=== PATIENT | male | born 1955 | race Caucasian/White ===

== ENCOUNTER 2017-12-29 12:57 | Observation (INO) | payer OTHER, SELFPAY ==
[2017-12-29] VITALS (9 sets, daily range): BP systolic 122–163; BP diastolic 82–104; PULSE 70–114; RESP 14–20; TEMP 36.3–36.8; O2SAT 92–98; BMI 31.5; BMI 31.2
--- NOTE | 2017-12-29 13:19 | EKG12_ITS ---
Test Reason : GI BLEED Blood Pressure : / mmHG Vent. Rate : 092 BPM Atrial Rate : 092 BPM P-R Int : 196 ms QRS Dur : 082 ms QT Int : 346 ms P-R-T Axes : 055 -04 037 degrees QTc Int : 427 ms Normal sinus rhythm Normal ECG Confirmed by JUVE BEATTY, NAVEEN ([id number]), editor dictionary CHRISTINA HERRERA ([id number]) on 01/01/2018 3:48:36 PM Referred By: ÓSCAR Confirmed By:NAVEEN AN MD
[2017-12-29] MEDS: 0.9% Normal Saline 1,000 ML 1000 ML IV (13:43)
[2017-12-29 13:46] LABS: Absolute Lymphocyte Count 1.46 X10^3/ul (0.83-4.51); Absolute Neutrophil Count 4.2 X10^3/uL (2.0-7.7); Basophil# 0.01 X10^3/uL; Basophil% 0.2 % (0-1); Eosinophil# 0.02 X10^3/uL; Eosinophils% 0.3 % (0-5); Hematocrit 44.3 % (40-54); Hemoglobin 14.8 g/dl (13.0-16.5); Lymphocyte # 1.46 X10^3/ul (4.0); Lymphocyte % 23.5 % (19-41); Mean Corp Hgb Conc 33.4 g/gl (32-36); Mean Corpuscular Hgb 29.2 pg (27.0-32.0); Mean Corpuscular Volume 87.4 fL (80-94); Mean Platelet Vol. 9.7 fl (6.2-12.0); Monocyte% 8.1 % (0-10); Neutrophil # 4.19 X10^3/uL (2.7-7.7); Neutrophil % 67.6 % (47-70); Platelet Count 224 K/mm3 (150-450); Prothrombin Time (Protime)PT. 13.3 SECONDS (11.7-14.9); RBC Distribution Width CV 13.5 % (11.6-14.6); RBC Distribution Width SD 43.1 fl (35.1-43.9); Red Blood Count 5.07 M/mm3 (4.6-6.2); White Blood Count 6.2 K/mm3 (4.4-11.0)
[2017-12-29 13:47] LABS: POSITIVE COUNT NO; POSITIVE DIFFERENTIAL NO; POSITIVE MORPHOLOGY NO
[2017-12-29 13:54] LABS: ALB/GLOB Ratio 1.3 RATIO (0.9-2.4); AST(SGOT) 23 U/L (15-37); Alanine Aminotransfer ALT/SGPT 40 U/L (16-61); Albumin, Serum 4.3 g/dL (3.2-5.0); Alkaline Phosphatase 43 U/L (45-117); Anion Gap 7 (5-15); BUN 11 mg/dL (7-18); BUN/Creat Ratio 11.3 RATIO (10-20); Chloride 104 mmol/L (98-107); Creatinine, Serum 0.97 mg/dL (0.70-1.30); EST Glomerular Filtration Rate 83 mL/min (>60); Est Glom Filt Rate - Afr Amer 101 mL/min (>60); Estimated Creatinine Clearance 100.79 ml/min; Globulin 3.2 g/dL (2.2-4.2); Glucose 104 mg/dL (74-106); Potassium 3.5 mmol/L (3.5-5.1); Protein, Total 7.5 g/dL (6.4-8.2); Sodium Level 138 mmol/L (136-145)
--- NOTE | 2017-12-29 13:59 | CT_ITS ---
STUDY: CT ABDOMEN AND PELVIS WITH CONTRAST REASON FOR EXAM: Male, 62 years old. RECTAL BLEEDING X MONTHS WITH WEAKNESS. RADIATION DOSAGE (If Supplied By Facility): CTDIvol = ( 15.41 ) mGy, DLP = ( 1386.69 ) mGycm TECHNIQUE: Transaxial images were obtained from the dome of the diaphragm to the symphysis pubis with oral contrast. 100 ml of Isovue 300 contrast was administered. Sagittal and coronal images were reconstructed. Individualized dose optimization techniques were used for this CT. COMPARISON: September 11, 2016 CT abdomen pelvis, June 19, 2017 CT abdomen FINDINGS: The lung bases demonstrate dependent atelectatic changes. The visualized portions of the heart are within normal limits. Normal liver. Normal gallbladder and extrahepatic biliary system. Normal spleen. Normal pancreas. Normal bilateral adrenal glands. There is a stable right renal cyst. 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 Normal visualized stomach. There are air-fluid levels in the small bowel without significant dilatation, suggesting an enteritis. . There are multiple colonic diverticula consistent with diverticulosis. The appendix is visualized and appears normal. Normal abdominal aorta. Normal inferior vena cava. 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 Normal urinary bladder. Again seen is a left inguinal fat-containing hernia. It no longer appears inflamed. There is a stable umbilical hernia. There are diffuse degenerative changes of the visualized lumbar spine. CT/Abdomen/Pelvis WITH Contrast IMPRESSION: There are air-fluid levels in the small bowel without significant dilatation, suggesting an enteritis. Other chronic findings. Electronically Signed: Rossy Dupree MD at 16:29 EDT , Service support ,
--- NOTE | 2017-12-29 14:25 | ED.DCSUM_ITS ---
- ER Visit Summary Date of Service: 12/29/17 Chief Complaint: Bright red blood per rectum History of Present Illness: The patient is a 62 M presenting with GI bleed. Patient states he had intermittent bright red blood per rectum for several months. He states typically the symptoms resolve on their own. He has a history of a colonoscopy [address] Blanco and was diagnosed with diverticuli and hemorrhoids. He states that he has intermittent rectal bleeding. He was concerned today due to generalized malaise, weakness, lightheadedness. He denies abdominal pain. He has mild nausea. Denies chest pain or shortness of breath. He has had chills with no fever. Physical Examination: Vitals are stable. Patient is afebrile. Alert no acute distress. HEENT exam is unremarkable. Neck is supple. Lungs are clear and equal bilaterally. Heart is regular rate and rhythm. Abdomen is soft nontender nondistended. No guarding or rebound. Rectal: External hemorrhoid nonbleeding, guaiac positive stool Extremities are unremarkable. Skin is warm and dry. Remainder of exam is unremarkable. Emergency Department Course and Treatment: EKG is sinus rate of 92 with no acute ischemic changes. CBC, chemistries unremarkable. INR is 1.0. Troponin is negative. Patient was given IV fluids. Urinalysis unremarkable. CT abdomen pelvis shows there are air-fluid levels in the small bowel without significant dilatation, suggesting an enteritis. Other chronic findings. Patient has a stable hemoglobin. He has an outpatient colonoscopy scheduled on with Dr. Blanco. Plan to observe for serial hemoglobin and discharge for outpatient colonoscopy should his hemoglobin remain stable. Discussed with the hospitalist. Disposition: Admission Impression: GI bleed, malaise, enteritis This note was generated with [employer] dictation software. It may contain incorrect words, spelling, and punctuation that were not noted in review of the chart prior to signing ED Disposition - Plan for ED Patient: Chief Complaint: GI Bleed Referrals: Shane Contreras MD [Primary Care Provider] -
[2017-12-29 15:10] LABS: Bacteria 0 SEEN /hpf (None Seen); Mucous, Urine 0 SEEN /hpf (<or=2+); White Blood Cells 0 SEEN /hpf (0-5)
[2017-12-29 15:17] LABS: Color, Urine Yellow (Yellow); Glucose, Dipstick Normal (Normal); Ketone-Dipstick Negative (Negative); Leukocyte Esterase-Dipstick Negative /ul (Negative); Nitrite-Dipstick Negative (Negative); Occult Blood-Urine Negative /ul (Negative); Protein-Dipstick Negative (Negative); Urine Bilirubin Dipstick Negative (Negative); Urine Clarity Clear (Clear); Urine Urobilinogen Normal (Normal); Urine pH 6.5 (5.0 - 8.0)
[2017-12-29 15:41] LABS: Red Blood Cells-Urine 0-5 SEEN /hpf (0-5); Squamous Epithelial Cells - UA 0-5 SEEN /hpf (0-5)
--- NOTE | 2017-12-29 17:31 | PCM.HP.STD ---
Problem List (1) GI bleed Status: Acute Qualifiers: GI bleed type/associated pathology: unspecified gastrointestinal hemorrhage type Qualified Code(s): K92.2 - Gastrointestinal hemorrhage, unspecified (2) Hemorrhoids Status: Chronic Qualifiers: Hemorrhoid type: unspecified Qualified Code(s): K64.9 - Unspecified hemorrhoids (3) Diverticulosis Status: Chronic Qualifiers: Diverticulosis site: unspecified location History of Present Illness Date of Admission: 12/29/17 Chief Complaint: Red bleeding per rectum for 3-4 days The patient is a 62 year old M with past medical history of diverticulosis and hemorrhoids, last had colonoscopy [address] Blanco. He has been having intermittent bright red bleeding per rectum and has been following up with Dr. Blanco. He has periodically been on a liquid diet which subsequently helps resolve the bleeding episodes. This is usually not associated with any other symptoms of dizziness or palpitations or fatigue or shortness of breath. However, in the last 3 or 4 days, he has been having bright red bleeding per rectum, which is associated with fatigue, analgesia and abdominal discomfort. The bleeding is painless. He has been on a liquid diet with nutritional supplements mainly because he has no appetite. No weight loss or fever or chills. No travel outside the [place], no new foods tried in a restaurant. No diarrhea. He got concerned today because he had an episode of bleeding and he felt very tired and nauseous but no vomiting. Vitals in the ER were temperature 97.3 F, heart rate of 104, blood pressure 157/99, respiratory rate was 16. Disc of the abdomen and pelvis showed air-fluid levels in the small bowel without significant dilatation suggestive of an enteritis Past Medical History Past Medical History (Chronic Problems): Chronic Problems Hemorrhoids (Chronic) Diverticulosis (Chronic) Allergies amoxicillin trihydrate [From Augmentin] Adverse Reaction (Verified 12/29/17 13:00) Rash potassium clavulanate [From Augmentin] Adverse Reaction (Verified 12/29/17 13:00) Rash Home Medications: Ambulatory Orders Medication Instructions Recorded Multivitamin [Multiple Vitamins] 1 each PO DAILY 12/29/17 Surgical History: - - Status post right and left inguinal hernia repair Psychiatric History: No pertinent psych hx Lives: Spouse/ Significant Other Smoking Status: Never smoker Alcohol: None Drugs: None - *Family History Maternal History Items: Cancer - Kidney cancer Paternal History Items: Cancer - colon cancer Review of Systems Constitutional: Reports: Anorexia, Weakness. Denies: Chills, Fever, Weight Change Eyes: Denies: Blurred vision, Cataracts, Conjunctivae Inflammation, Double vision, Pain, Redness HEENT: Denies: Difficulty Hearing, Difficulty Swallowing, Head Aches, Hearing Changes, Sinus Congestion, Sinus Drainage Cardiovascular: Denies: Chest Pain, Claudication, Chest Pressure, Orthopnea, Palpitations, Paroxysmal Noc. Dyspnea Respiratory: Denies: Cough, Hemoptysis, Shortness of Breath, Shortness of breath at rest, Shortness of breath upon exertion, Sputum production Gastrointestinal: Reports: Abdominal Pain, Hematochezia, Nausea. Denies: Constipation, Dyspepsia, Hematemesis, Melena, Vomiting Genitourinary: Denies: Dysuria, Frequency, Incontinence, Nocturia Musculoskeletal: Denies: Joint Pain, Joint stiffness, Joint swelling, Joint Tenderness Skin: Denies: Dryness, Pruritis, Rash, Wounds Neurological: Denies: Balance problems, Difficulty swallowing, Focal weakness, Incoordination, Numbness, Tingling Psychiatric: Denies: Anxiety, Depression, Homicidal Ideations, Suicidal Ideations Hematologic/ Lymphatic: Denies: Easy Bruising, Easy Bleeding VTE Information - Inpt Only VTE Present on Admission: No VTE Pharm Prophylaxis ordered?: Yes Patient Problems: Active and Suspected Problems GI bleed (Acute) - Physical Exam General: Alert, Oriented x3, Cooperative, No apparent distress, - - Not pale, not jaundice HEENT: Atraumatic, PERRLA, EOMI, Normocephalic Oral: Moist Mucosa Neck: Supple Lungs: Clear to auscultation, Normal air movement Cardiovascular: Regular rate, Regular Rhythm, Normal S1, Normal S2, No murmurs Abdomen: Bowel Sounds Present, Soft, Non Tender, Non-Distended, No Hepato-splenomegaly, Obese Extremities: No edema, Capillary Refill Less than 3 Seconds Skin: No rashes, No breakdown Musculoskeletal: No Tenderness to Palpation of Joints or Extremities Lymphatic: No Cervical, Supraclavicular, or Inguinal Adenopathy Neurological: Cranial nerves II-XII grossly intact, Neuro grossly intact Psych/Mental Status: Normal Affect, Appropriate Vital Signs Temp Pulse Resp BP Pulse Ox 97.3 F L 78 18 160/100 H 98 12/29/17 12:58 12/29/17 16:34 12/29/17 16:34 12/29/17 16:34 12/29/17 16:34 Assessment/Plan All Active Problems GI bleed (Acute) 62 year old M with past medical history of diverticulosis and hemorrhoids, last had colonoscopy [address] Blanco. He has been having intermittent bright red bleeding per rectum and has been following up with Dr. Blanco. 1. Acute GI bleed likely secondary to diverticular bleed versus hemorrhoids, history of above, stable every shift,, stable H&H. He has a planned colonoscopy on with Dr. Blanco. Dr. Gerber is aware of the patient and is ready to come in if patient has profuse bleeding and needs intervention. Plan: Admit to PCU, H&H every 6 hourly, orthostatic vitals every shift, labs in am 2. Hypertension, no history of hypertension, not on any medication for now, will monitor for now, if persistently elevated, will start patient on some blood pressure medication 3. DVT Prophylaxis with SCDs -chemo for prophylaxis not indicated on account of GI bleed 4. Disposition: Possible discharge in a.m. if patient improves, Hb remains stable and not orthostatic. Code Visit Inpatient E&M: 10182 Init Hosp L3
--- NOTE | 2017-12-29 17:41 | HP.PCM_ITS ---
Problem List (1) GI bleed Status: Acute Qualifiers: GI bleed type/associated pathology: unspecified gastrointestinal hemorrhage type Qualified Code(s): K92.2 - Gastrointestinal hemorrhage, unspecified (2) Hemorrhoids Status: Chronic Qualifiers: Hemorrhoid type: unspecified Qualified Code(s): K64.9 - Unspecified hemorrhoids (3) Diverticulosis Status: Chronic Qualifiers: Diverticulosis site: unspecified location History of Present Illness Date of Admission: 12/29/17 Chief Complaint: Red bleeding per rectum for 3-4 days The patient is a 62 year old M with past medical history of diverticulosis and hemorrhoids, last had colonoscopy [address] Blanco. He has been having intermittent bright red bleeding per rectum and has been following up with Dr. Blanco. He has periodically been on a liquid diet which subsequently helps resolve the bleeding episodes. This is usually not associated with any other symptoms of dizziness or palpitations or fatigue or shortness of breath. However, in the last 3 or 4 days, he has been having bright red bleeding per rectum, which is associated with fatigue, analgesia and abdominal discomfort. The bleeding is painless. He has been on a liquid diet with nutritional supplements mainly because he has no appetite. No weight loss or fever or chills. No travel outside the [place], no new foods tried in a restaurant. No diarrhea. He got concerned today because he had an episode of bleeding and he felt very tired and nauseous but no vomiting. Vitals in the ER were temperature 97.3 F, heart rate of 104, blood pressure 157/ 99, respiratory rate was 16. Disc of the abdomen and pelvis showed air-fluid levels in the small bowel without significant dilatation suggestive of an enteritis Past Medical History Past Medical History (Chronic Problems): Chronic Problems Hemorrhoids (Chronic) Diverticulosis (Chronic) Allergies amoxicillin trihydrate [From Augmentin] Adverse Reaction (Verified 12/29/17 13: 00) Rash potassium clavulanate [From Augmentin] Adverse Reaction (Verified 12/29/17 13:00 ) Rash Home Medications: Ambulatory Orders Medication Instructions Recorded Multivitamin [Multiple Vitamins] 1 each PO DAILY 12/29/17 Surgical History: - - Status post right and left inguinal hernia repair Psychiatric History: No pertinent psych hx Lives: Spouse/ Significant Other Smoking Status: Never smoker Alcohol: None Drugs: None - *Family History Maternal History Items: Cancer - Kidney cancer Paternal History Items: Cancer - colon cancer Review of Systems Constitutional: Reports: Anorexia, Weakness. Denies: Chills, Fever, Weight Change Eyes: Denies: Blurred vision, Cataracts, Conjunctivae Inflammation, Double vision, Pain, Redness HEENT: Denies: Difficulty Hearing, Difficulty Swallowing, Head Aches, Hearing Changes, Sinus Congestion, Sinus Drainage Cardiovascular: Denies: Chest Pain, Claudication, Chest Pressure, Orthopnea, Palpitations, Paroxysmal Noc. Dyspnea Respiratory: Denies: Cough, Hemoptysis, Shortness of Breath, Shortness of breath at rest, Shortness of breath upon exertion, Sputum production Gastrointestinal: Reports: Abdominal Pain, Hematochezia, Nausea. Denies: Constipation, Dyspepsia, Hematemesis, Melena, Vomiting Genitourinary: Denies: Dysuria, Frequency, Incontinence, Nocturia Musculoskeletal: Denies: Joint Pain, Joint stiffness, Joint swelling, Joint Tenderness Skin: Denies: Dryness, Pruritis, Rash, Wounds Neurological: Denies: Balance problems, Difficulty swallowing, Focal weakness, Incoordination, Numbness, Tingling Psychiatric: Denies: Anxiety, Depression, Homicidal Ideations, Suicidal Ideations Hematologic/ Lymphatic: Denies: Easy Bruising, Easy Bleeding VTE Information - Inpt Only VTE Present on Admission: No VTE Pharm Prophylaxis ordered?: Yes Patient Problems: Active and Suspected Problems GI bleed (Acute) - Physical Exam General: Alert, Oriented x3, Cooperative, No apparent distress, - - Not pale, not jaundice HEENT: Atraumatic, PERRLA, EOMI, Normocephalic Oral: Moist Mucosa Neck: Supple Lungs: Clear to auscultation, Normal air movement Cardiovascular: Regular rate, Regular Rhythm, Normal S1, Normal S2, No murmurs Abdomen: Bowel Sounds Present, Soft, Non Tender, Non-Distended, No Hepato- splenomegaly, Obese Extremities: No edema, Capillary Refill Less than 3 Seconds Skin: No rashes, No breakdown Musculoskeletal: No Tenderness to Palpation of Joints or Extremities Lymphatic: No Cervical, Supraclavicular, or Inguinal Adenopathy Neurological: Cranial nerves II-XII grossly intact, Neuro grossly intact Psych/Mental Status: Normal Affect, Appropriate Vital Signs Temp Pulse Resp BP Pulse Ox 97.3 F L 78 18 160/100 H 98 12/29/17 12:58 12/29/17 16:34 12/29/17 16:34 12/29/17 16:34 12/29/17 16:34 Assessment/Plan All Active Problems GI bleed (Acute) 62 year old M with past medical history of diverticulosis and hemorrhoids, last had colonoscopy [address] Blanco. He has been having intermittent bright red bleeding per rectum and has been following up with Dr. Blanco. 1. Acute GI bleed likely secondary to diverticular bleed versus hemorrhoids, history of above, stable every shift,, stable H&H. He has a planned colonoscopy on with Dr. Blanco. Dr. Gerber is aware of the patient and is ready to come in if patient has profuse bleeding and needs intervention. Plan: Admit to PCU, H&H every 6 hourly, orthostatic vitals every shift, labs in am 2. Hypertension, no history of hypertension, not on any medication for now, will monitor for now, if persistently elevated, will start patient on some blood pressure medication 3. DVT Prophylaxis with SCDs -chemo for prophylaxis not indicated on account of GI bleed 4. Disposition: Possible discharge in a.m. if patient improves, Hb remains stable and not orthostatic. Code Visit Inpatient E&M: 62250 Init Hosp L3
[2017-12-29 18:26] LABS: Hemoglobin 14.2 g/dl (13.0-16.5)
[2017-12-29] MEDS: Ciprofloxacin 200 MG/100 ML BAG 100 MG IV (21:19)
[2017-12-29 23:57] LABS: Hemoglobin 14.2 g/dl (13.0-16.5)
[2017-12-30 03:01] VITALS: PULSE 65
[2017-12-30 05:40] LABS: Hematocrit 41.6 % (40-54); Hemoglobin 13.9 g/dl (13.0-16.5); Mean Corp Hgb Conc 33.4 g/gl (32-36); Mean Corpuscular Hgb 29.9 pg (27.0-32.0); Mean Corpuscular Volume 89.5 fL (80-94); Mean Platelet Vol. 9.8 fl (6.2-12.0); Platelet Count 213 K/mm3 (150-450); RBC Distribution Width CV 13.8 % (11.6-14.6); RBC Distribution Width SD 44.8 fl (35.1-43.9); Red Blood Count 4.65 M/mm3 (4.6-6.2); White Blood Count 5.7 K/mm3 (4.4-11.0)
[2017-12-30 05:48] LABS: Anion Gap 8 (5-15); BUN 11 mg/dL (7-18); BUN/Creat Ratio 11.7 RATIO (10-20); Calcium,Total 8.7 mg/dL (8.5-10.1); Chloride 106 mmol/L (98-107); Creatinine, Serum 0.94 mg/dL (0.70-1.30); EST Glomerular Filtration Rate 86 mL/min (>60); Est Glom Filt Rate - Afr Amer 104 mL/min (>60); Glucose 110 mg/dL (74-106); Potassium 3.8 mmol/L (3.5-5.1); Sodium Level 143 mmol/L (136-145)
[2017-12-30 06:16] VITALS: BP 127/65; BP 128/90; BP 134/71; PULSE 65; PULSE 69; PULSE 75
[2017-12-30 06:25] LABS: Scan Indicated on CBC? Y/N NO
[2017-12-30 06:52] VITALS: BP 127/65; PULSE 65; RESP 16; TEMP 36.6; O2SAT 96
[2017-12-30 08:00] VITALS: PULSE 71
[2017-12-30 09:11] VITALS: BP 132/80; PULSE 68; RESP 16; TEMP 36.6; O2SAT 95
[2017-12-30] MEDS: Ciprofloxacin 200 MG/100 ML BAG 100 MG IV (09:20)
[2017-12-30] MEDS: Multivitamins,Therapeutic Tablet 1 TABLET PO (09:25)
--- NOTE | 2017-12-30 10:20 | PCM.DC ---
- Discharge Diagnoses Current Active Problems: Current Active and Chronic Problems GI bleed (Acute) Hemorrhoids (Chronic) Diverticulosis (Chronic) You will use the following diet at home:: Other - clear liquids, advance as tolerated to low residue for 2 weeks and then High fiber after that Your food should be the consistency of: Regular Your liquids should be the consistency of: Regular/Thin Discharge Activity: - - Take it easy this week. Think about taking a vacation! May resume sexual activity in: No Restrictions Call your doctor if you observe: Fever of 101 or Higher, Inability to have a bowel movement, Shortness of breath, Dizziness, - - nausea/vomiting, black tarry stools Instructions: Low-Residue Diet Additional Instructions: Call me if you start to have fevers or increased bloody BM's. My cell is [phone] and I am here all week. Nice to be able to put a name to a face and it was a pleasure to finally meet you. Pending Tests on Discharge: none Allergies/Adverse Reactions: Allergies amoxicillin trihydrate [From Augmentin] Adverse Reaction (Verified 12/29/17 13:00) Rash potassium clavulanate [From Augmentin] Adverse Reaction (Verified 12/29/17 13:00) Rash Medications to take at Discharge Multivitamin [Multiple Vitamins] 1 each PO DAILY 12/29/17 Hydrocortisone [Anusol Hc] 25 mg RECTAL BID #18 suppos. 12/30/17 The following prescriptions were given: Hydrocortisone [Anusol Hc] 25 mg RECTAL BID #18 suppos. Primary Care Physician: Shane Contreras MD [Primary Care Provider] - Please follow up with your Primary Care Physician in: as needed Please Follow Up With: Abdulkadir Blanco MD When: has appt for colonoscopy Proposed Discharge Date: 12/30/17
--- NOTE | 2017-12-30 10:27 | DCINST_ITS ---
- Discharge Diagnoses Current Active Problems: Current Active and Chronic Problems GI bleed (Acute) Hemorrhoids (Chronic) Diverticulosis (Chronic) You will use the following diet at home:: Other - clear liquids, advance as tolerated to low residue for 2 weeks and then High fiber after that Your food should be the consistency of: Regular Your liquids should be the consistency of: Regular/Thin Discharge Activity: - - Take it easy this week. Think about taking a vacation! May resume sexual activity in: No Restrictions Call your doctor if you observe: Fever of 101 or Higher, Inability to have a bowel movement, Shortness of breath, Dizziness, - - nausea/vomiting, black tarry stools Instructions: Low-Residue Diet Additional Instructions: Call me if you start to have fevers or increased bloody BM's. My cell is [phone] and I am here all week. Nice to be able to put a name to a face and it was a pleasure to finally meet you. Pending Tests on Discharge: none Allergies/Adverse Reactions: Allergies amoxicillin trihydrate [From Augmentin] Adverse Reaction (Verified 12/29/17 13: 00) Rash potassium clavulanate [From Augmentin] Adverse Reaction (Verified 12/29/17 13:00 ) Rash Medications to take at Discharge Multivitamin [Multiple Vitamins] 1 each PO DAILY 12/29/17 Hydrocortisone [Anusol Hc] 25 mg RECTAL BID #18 suppos. 12/30/17 The following prescriptions were given: Hydrocortisone [Anusol Hc] 25 mg RECTAL BID #18 suppos. Primary Care Physician: Shane Contreras MD [Primary Care Provider] - Please follow up with your Primary Care Physician in: as needed Please Follow Up With: Abdulkadir Blanco MD When: has appt for colonoscopy Proposed Discharge Date: 12/30/17
--- NOTE | 2017-12-30 10:27 | PCM.DC.SUM ---
Discharge Date and Diagnosis - Problem List Patient Problems: Active and Suspected Problems Lower GI bleeding (Acute) Date of Admission: 12/29/17 Date of Discharge: 12/30/17 - Primary Discharge Diagnosis Active and Suspected Problems Lower GI bleeding (Acute) - suspect due to hemorrhoidal disease or diverticular disease - Secondary Discharge Diagnosis Chronic Problems Hemorrhoids (Chronic) Diverticulosis (Chronic) Hospital Course and Treatment Imaging Results: Clinical Impression(s) from Imaging Studies Abdomen/Pelvis CT 12/29/17 13:59 IMPRESSION: There are air-fluid levels in the small bowel without significant dilatation, suggesting an enteritis. Other chronic findings. Electronically Signed: Rossy Dupree MD at 16:29 EDT , Service support , Laboratory Tests 12/29/17 12/29/17 12/29/17 13:24 13:24 13:24 WBC 6.2 RBC 5.07 Hgb 14.8 Hct 44.3 MCV 87.4 MCH 29.2 MCHC 33.4 RDW 13.5 RDW Differential 43.1 Plt Count 224 MPV 9.7 Immature Gran % (Auto) 0.300 Neut % (Auto) 67.6 Lymph % (Auto) 23.5 [place] % (Auto) 8.1 Eos % (Auto) 0.3 Baso % (Auto) 0.2 Absolute Neuts (auto) 4.2 Absolute Lymphs (auto) 1.46 Total Counted Not Reportable PT 13.3 INR 1.0 Sodium 138 Potassium 3.5 Chloride 104 Carbon Dioxide 27.0 Anion Gap 7 BUN 11 Creatinine 0.97 Estim Creat Clear Calc 100.79 Est GFR (MDRD) Af Amer 101 Est GFR (MDRD) Non-Af 83 BUN/Creatinine Ratio 11.3 Glucose 104 Calcium 9.0 Total Bilirubin 0.90 AST 23 ALT 40 Alkaline Phosphatase 43 L Troponin I < 0.015 Total Protein 7.5 Albumin 4.3 Globulin 3.2 Albumin/Globulin Ratio 1.3 Urine Color Urine Clarity Urine pH Ur Specific [place] Urine Protein Urine Glucose (UA) Urine Ketones Urine Occult Blood Urine Nitrite Urine Bilirubin Urine Urobilinogen Ur Leukocyte Esterase Urine RBC Urine WBC Ur Squamous Epith Cells Urine Bacteria Urine Mucus 06/17/18 06/17/18 06/17/18 14:45 18:00 23:30 WBC RBC Hgb 14.2 14.2 Hct 42.0 41.0 MCV MCH MCHC RDW RDW Differential Plt Count MPV Immature Gran % (Auto) Neut % (Auto) Lymph % (Auto) [place] % (Auto) Eos % (Auto) Baso % (Auto) Absolute Neuts (auto) Absolute Lymphs (auto) Total Counted PT INR Sodium Potassium Chloride Carbon Dioxide Anion Gap BUN Creatinine Estim Creat Clear Calc Est GFR (MDRD) Af Amer Est GFR (MDRD) Non-Af BUN/Creatinine Ratio Glucose Calcium Total Bilirubin AST ALT Alkaline Phosphatase Troponin I Total Protein Albumin Globulin Albumin/Globulin Ratio Urine Color Yellow Urine Clarity Clear Urine pH 6.5 Ur Specific [place] 1.010 Urine Protein Negative Urine Glucose (UA) Normal Urine Ketones Negative Urine Occult Blood Negative Urine Nitrite Negative Urine Bilirubin Negative Urine Urobilinogen Normal Ur Leukocyte Esterase Negative Urine RBC 0-5 SEEN Urine WBC 0 SEEN Ur Squamous Epith Cells 0-5 SEEN Urine Bacteria 0 SEEN Urine Mucus 0 SEEN 12/30/17 12/30/17 05:14 05:14 WBC 5.7 RBC 4.65 Hgb 13.9 Hct 41.6 MCV 89.5 MCH 29.9 MCHC 33.4 RDW 13.8 RDW Differential 44.8 H Plt Count 213 MPV 9.8 Immature Gran % (Auto) Neut % (Auto) Lymph % (Auto) [place] % (Auto) Eos % (Auto) Baso % (Auto) Absolute Neuts (auto) Absolute Lymphs (auto) Total Counted PT INR Sodium 143 Potassium 3.8 Chloride 106 Carbon Dioxide 29.0 Anion Gap 8 BUN 11 Creatinine 0.94 Estim Creat Clear Calc 104.00 Est GFR (MDRD) Af Amer 104 Est GFR (MDRD) Non-Af 86 BUN/Creatinine Ratio 11.7 Glucose 110 H Calcium 8.7 Total Bilirubin AST ALT Alkaline Phosphatase Troponin I Total Protein Albumin Globulin Albumin/Globulin Ratio Urine Color Urine Clarity Urine pH Ur Specific [place] Urine Protein Urine Glucose (UA) Urine Ketones Urine Occult Blood Urine Nitrite Urine Bilirubin Urine Urobilinogen Ur Leukocyte Esterase Urine RBC Urine WBC Ur Squamous Epith Cells Urine Bacteria Urine Mucus none Operations: None Procedures: None Summary of Care Provided: The patient is a 62 year old M with a past medical history of diverticulosis and hemorrhoidal disease who presented to the emergency room at [facility] on 12/29/2017 complaining of bright red rectal bleeding associated with fatigue decreased appetite. Vital signs at presentation to the emergency room were temperature 97.3, pulse rate 114, blood pressure 157/99, respiratory rate 16 and he was 92% saturated on room air. CBC was normal and BMP was also within normal limits. Troponin was less than 0.015 and the LFTs were unremarkable. CT scan of the abdomen and pelvis showed air-fluid levels in the small bowel without significant dilatation suggesting an enteritis. He was admitted to the hospital with a diagnosis of lower GI bleed likely secondary to hemorrhoidal disease or diverticular disease. Follow-up CBC the next morning was within normal limits. Enteric pathogen panel was negative. Vital signs were temp 97.9, pulse rate 68, blood pressure 132/80, respiratory rate 16 and he was 95-96% saturated on room air. He denies abdominal pain and also denies rectal pain with defecation. BM's recently have been semi-formed. He has had no nausea and no vomiting. He had no fevers in the hospital. He was discharged on 12/30 and has an appointment with Dr. Blanco this coming for colonoscopy. He was given a prescription for Anusol suppositories and instructed to use 1 twice daily for 4 days and then twice daily as needed bright red rectal bleeding or rectal pain. He will advance his diet as tolerated to low residue for 2 weeks and then convert to a high-fiber diet. My suspicion is that he has gastroenteritis. BP's early in the admission were increased, suggest close monitoring of BP as OP and consideration of a 24 hour ambulatory BP monitor. Discharge Activity: - - Take it easy this week. Think about taking a vacation! May resume sexual activity in: No Restrictions Call your doctor if you observe: Fever of 101 or Higher, Inability to have a bowel movement, Shortness of breath, Dizziness, - - nausea/vomiting, black tarry stools Home Medications: Medications to take at Discharge Multivitamin [Multiple Vitamins] 1 each PO DAILY 12/29/17 Hydrocortisone [Anusol Hc] 25 mg RECTAL BID #18 suppos. 12/30/17 Following Prescrptions Were Given to Patient: Hydrocortisone [Anusol Hc] 25 mg RECTAL BID #18 suppos. Primary Care Physician: Shane Contreras MD [Primary Care Provider] - Please follow up with your Primary Care Physician in: as needed Please Follow Up With: Abdulkadir Blanco MD When: has appt for colonoscopy Patient Instructions: Low-Residue Diet Disposition: Home Minutes spent on discharge:: 30 Patient Condition:: Good Medical Necessity - Tobacco Use Smoking Status: Never smoker Meaningful Use Info Meaningful Use Diagnoses (Choose all that apply): None applicable Code Visit OBSV E&M: 41305 Observation care discharge
== END 2017-12-30 10:26 | disposition home or self-care (01) ==
LOC: PCU 12-30 10:47 → ED 12-30 10:52
PROVIDERS: Admitting Provider Internal Medicine; Emergency Provider Emergency Medicine; Family Provider Family Medicine; PCP Family Medicine; Visit Provider Internal Medicine
DX: K92.2 Gastrointestinal hemorrhage, unspecified (principal); K57.90 Diverticulosis of intestine, part unspecified, without perforation or abscess without bleeding; K64.4 Residual hemorrhoidal skin tags; I10 Essential (primary) hypertension
CPT/HCPCS: 36415; 74177; 80048; 80053; 81001; 82274; 84484; 85014; 85018; 85025; 85027; 85610; 87506; 93005; 96360; 96361; 97802; 99218; 99284; J7030; J7040; Q9967; A4216; G0378; J0744

== ENCOUNTER → 2018-07-24 13:02 | Outpatient (CLI) | payer OTHER, SELFPAY ==
--- NOTE | 2018-07-24 13:05 | CT_ITS ---
STUDY: CT SOFT TISSUE NECK WITH CONTRAST REASON FOR EXAM: Male, 62 years old. Palpable abnormality along the right side of the neck. RADIATION DOSAGE (If Supplied By Facility): CTDIvol = ( 15.11 ) mGy, DLP = ( 473.61 ) mGycm TECHNIQUE: The patient was scanned in a multi-detector CT scanner. High resolution transaxial imaging was performed following intravenous administration of 75 ml of Isovue 300 contrast material. Sagittal and coronal images were reconstructed. Individualized dose optimization techniques were used for this CT. COMPARISON: None. FINDINGS: Normal bilateral parotid glands. Normal bilateral destination coordinator spaces. Normal bilateral parapharyngeal spaces. Normal bilateral carotid spaces. Normal bilateral sublingual and submandibular glands and spaces. Normal visualized nasopharynx. Normal retropharyngeal space. Normal perivertebral space. Normal visualized bilateral faucial tonsils. The visualized tongue, tongue base and oropharynx are normal. There are minimally enlarged lymph nodes of the neck, with preservation of normal jacqueline architecture, consistent with a reactive lymph hyperplasia. There is no demonstrated solid or cystic mass lesion. There is no abnormal contrast enhancement. Normal epiglottis, bilateral vallecula and hypopharynx. The pre-epiglottic and paraglottic adipose spaces are normal. Normal visualized bilateral piriform sinuses, aryepiglottic folds, vocal cords, and arytenoid-cricoid articulations. Normal subglottic trachea. Normal bilateral lobes of the thyroid gland. Normal visualized pulmonary apices. Normal visualized paranasal sinuses. Normal visualized cervical spine. CT/Soft Tissue Neck WITH Contrast IMPRESSION: Small lymph nodes are seen in both sides of the neck slightly more prominent on the right side. These measure within normal limits. Electronically Signed: Arcenio Allen MD at 10:08 EST Tel [phone], Service support ,
[2018-07-24 13:36] LABS: CREATININE FINGERSTICK 0.8 mg/dL (0.70-1.30)
== END ==
PROVIDERS: Family Provider Family Medicine; PCP Family Medicine; Referring Provider Otolaryngology Otolaryngology/Facial Plastic Surgery; Visit Provider Otolaryngology Otolaryngology/Facial Plastic Surgery
DX: R22.1 Localized swelling, mass and lump, neck (principal)
CPT/HCPCS: 70491; Q9967

== ENCOUNTER → 2018-10-02 08:25 | Outpatient (CLI) | payer OTHER, SELFPAY ==
[2017-12-29 17:38] VITALS: BMI 31.2
--- NOTE | 2018-10-02 09:07 | EKG12_ITS ---
Test Reason : PRE OP Blood Pressure : / mmHG Vent. Rate : 068 BPM Atrial Rate : 068 BPM P-R Int : 180 ms QRS Dur : 086 ms QT Int : 384 ms P-R-T Axes : 058 014 032 degrees QTc Int : 408 ms Normal sinus rhythm Normal ECG Confirmed by JUVE BEATTY, NAVEEN ([id number]), electronic news gathering editor CHRISTINA HERRERA ([id number]) on 10/03/2018 1:03:17 PM Referred By: Jason Paris Confirmed By:NAVEEN AN MD
[2018-10-02 10:20] LABS: Hemoglobin 14.6 g/dl (13.0-16.5); Mean Corp Hgb Conc 32.4 g/gl (32-36); Mean Corpuscular Hgb 29.4 pg (27.0-32.0); Mean Corpuscular Volume 90.5 fL (80-94); Mean Platelet Vol. 10.1 fl (6.2-12.0); Platelet Count 204 K/mm3 (150-450); RBC Distribution Width CV 13.8 % (11.6-14.6); RBC Distribution Width SD 45.1 fl (35.1-43.9); Red Blood Count 4.97 M/mm3 (4.6-6.2); White Blood Count 4.8 K/mm3 (4.4-11.0)
[2018-10-02 10:22] LABS: Scan Indicated on CBC? Y/N NO
[2018-10-02 10:43] LABS: Anion Gap 3 (5-15); BUN 15 mg/dL (7-18); BUN/Creat Ratio 16.8 RATIO (10-20); Calcium,Total 8.6 mg/dL (8.5-10.1); Chloride 107 mmol/L (98-107); Creatinine, Serum 0.89 mg/dL (0.70-1.30); EST Glomerular Filtration Rate 92 mL/min (>60); Est Glom Filt Rate - Afr Amer 111 mL/min (>60); Glucose 105 mg/dL (74-106); Potassium 4.3 mmol/L (3.5-5.1); Sodium Level 140 mmol/L (136-145)
== END ==
PROVIDERS: Family Provider Family Medicine; PCP Family Medicine; Referring Provider Colon & Rectal Surgery; Visit Provider Colon & Rectal Surgery
DX: Z01.818 Encounter for other preprocedural examination (principal); R09.89 Other specified symptoms and signs involving the circulatory and respiratory systems
CPT/HCPCS: 36415; 80048; 85027; 93005

== ENCOUNTER 2021-03-21 15:16 | Outpatient (CLI) | payer OTHER, SELFPAY ==
[2021-03-21] MEDS: 0.9% Saline Lock 10 ML Syringe IV (15:26)
[2021-03-21 15:42] VITALS: BP 154/92; PULSE 93; RESP 16; TEMP 36.7; O2SAT 94; BMI 33.7
[2021-03-21 16:22] VITALS: BP 136/78; PULSE 83; RESP 20; TEMP 36.7; O2SAT 96
[2021-03-21 17:22] VITALS: BP 149/80; PULSE 79; RESP 16; TEMP 36.7; O2SAT 96
== END 2021-03-21 17:22 | disposition home or self-care (01) ==
LOC: ICUOUT 15:17 → MS2 15:18
PROVIDERS: PCP Family Medicine; Referring Provider Nurse Practitioner Acute Care; Visit Provider Nurse Practitioner Acute Care
DX: Z23 Encounter for immunization (principal); U07.1 COVID-19
CPT/HCPCS: J7050; M0243; A4216; Q0244

== ENCOUNTER 2021-08-31 10:45 | Emergency (ER) | payer MEDICARE, OTHER, SELFPAY ==
[2021-08-31 10:45] VITALS: BP 181/109; PULSE 112; RESP 16; TEMP 36.4; O2SAT 96; BMI 34.4
--- NOTE | 2021-08-31 11:00 | EKG12_ITS ---
Test Reason : LIGHT-HEADED Blood Pressure : / mmHG Vent. Rate : 102 BPM Atrial Rate : 102 BPM P-R Int : 194 ms QRS Dur : 082 ms QT Int : 340 ms P-R-T Axes : 056 -11 052 degrees QTc Int : 443 ms Sinus tachycardia Septal infarct , age undetermined Abnormal ECG Confirmed by RAFI BEATTY, SAMUEL ([id number]), editor news ORIANA ORTIZ ([id number]) on 09/04/2021 1:26:34 PM Referred By: MATT Confirmed By:RAMONE MCKEE MD
--- NOTE | 2021-08-31 11:01 | CT_ITS ---
STUDY: CT ABDOMEN AND PELVIS WITH CONTRAST REASON FOR EXAM: Male, 66 years old. Lower abdominal pain and constipation. RADIATION DOSAGE (If Supplied By Facility): CTDIvol = ( 16.74 ) mGy, DLP = ( 1340.48 ) mGycm TECHNIQUE: Transaxial images were obtained from the dome of the diaphragm to the symphysis pubis without oral contrast. IV 100mL Isovue-300 was administered. Sagittal and coronal images were reconstructed. Individualized dose optimization techniques were used for this CT. COMPARISON: Comparison is made with prior study dated 12/29/2017. FINDINGS: The visualized lung bases are unremarkable. The visualized portions of the heart are within normal limits. There is decreased attenuation of the liver consistent with steatosis. Normal gallbladder and extrahepatic biliary system. Normal spleen. Normal pancreas. Normal bilateral adrenal glands. There is a stable 1.8 cm cyst in the upper pole of the right kidney. Normal left kidney. Normal visualized stomach. Normal small intestine. There are multiple colonic diverticula consistent with diverticulosis. The appendix is visualized and appears normal. Normal abdominal aorta. Normal inferior vena cava. Normal retroperitoneum. Nonspecific. Increased markings within the peritoneal fat at the level of the width of the mesentery with small lymph nodes. This is nonspecific. This is essentially unchanged. Distended urinary bladder. There is a left-sided inguinal hernia containing adipose tissue. Stable small umbilical hernia containing fat. Normal osseous structures. CT/Abdomen/Pelvis W IV Cont ONLY IMPRESSION: Diffuse fatty infiltration of the liver. Stable right renal cyst. Stable increased markings in the root of the mesentery with small lymph nodes. This is unchanged. Small left inguinal hernia containing fat. Sigmoid diverticulosis. Electronically Signed: Arcenio Allen MD at 12:34 EST ,
--- NOTE | 2021-08-31 11:02 | EDS_ITS ---
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 He denies any fevers or chills but states he is nauseated but has not vomited. For quite some time he has been showing symptoms of enlarged prostate, having to get up to urinate in the middle of the night more times than usual. Over the last few days, he has had nonlocalized abdominal pain and the feeling of constipation. Past surgical history includes herniorrhaphy by laparoscopy. He also relates history of a kidney mass which she had imaging performed. His main concern is that he has had history of diverticulosis, and now has diffuse abdominal pain. He denies any significant bloating symptoms or distention. No true exacerbating or alleviating factors. [facility] Medical History (Updated 08/31/21 @ 13:07 by Calvin Guzman MD) Asthma Home Medications multivitamin [Multiple Vitamins] 1 ea PO DAILY 12/29/17 [History Last Taken Unknown] albuterol sulfate 2 inh INHALATION Q6H PRN 03/21/21 [History Last Taken Unknown] cholecalciferol (vitamin D3) [Vitamin D3] 50 mcg PO DAILY 03/21/21 [History Last Taken Unknown] fluticasone furoate [Arnuity Ellipta] 1 inh INHALATION QHS 03/21/21 [History Last Taken Unknown] montelukast 10 mg PO DAILY 03/21/21 [History Last Taken Unknown] zinc 22 mg PO DAILY 03/21/21 [History Last Taken Unknown] aspirin 81 mg PO DAILY 08/31/21 [History Last Taken Unknown] lisinopril-hydrochlorothiazide 1 tab PO DAILY #30 tab 08/31/21 [Rx Last Taken Unknown] omeprazole 20 mg PO DAILY 08/31/21 [History Last Taken Unknown] Allergy/AdvReac Type Severity Reaction Status Date / Time amoxicillin trihydrate Allergy Rash Verified 08/31/21 10:48 [From Augmentin] potassium clavulanate Allergy Rash Verified 08/31/21 10:48 [From Augmentin] Surgical History (Updated 08/31/21 @ 11:21 by Zelda Castro) H/O hernia repair Social History Smoking Status: Never smoker ROS ROS ED ROS Narrative Constitutional: No fever, no chills. HEENT: No sore throat. No neck pain. No loss of vision. No rhinorrhea. Cardiovascular: No chest pain. No palpitations. No pedal edema. Respiratory: No cough, no shortness of breath. Abdominal: Nonlocalized, diffuse abdominal pain. Positive nausea. No vomiting. No diarrhea. No melanotic stool. Positive constipation/obstipation Genitourinary: Mild dysuria. No hematuria. Increasing nocturia. Musculoskeletal: No myalgias. No arthralgias. Neurologic: No headaches. No dizziness. No lightheadedness. Skin: No rash. No change in color. Psychiatric: No depression. No anxiety. EXAM Physical Exam Narrative Exam Narrative: Afebrile. Vital signs noted. HEENT: Normocephalic. Atraumatic. PERRL, EOMI. Neck soft and supple. No point tenderness or step off. Cardiovascular: Regular rate and rhythm with intermittent tachycardia. No murmurs, rubs, or gallops appreciated. Respiratory: No tachypnea. Lungs clear to auscultation bilaterally. Gastrointestinal: Abdomen soft, minimal diffuse tenderness, with normoactive b owel sounds. No rebound or guarding. Neurological: Awake. Alert. Nonfocal, nonlateralizing. Skin: No rash. Normal color. No pallor. Musculoskeletal: No pedal edema. Full range of motion extremities. Const Vital Signs: 08/31/21 10:45 08/31/21 11:20 08/31/21 11:25 Temperature 97.5 F L Temperature Source Temporal Pulse Rate 112 H 99 Respiratory Rate 16 15 Blood Pressure 181/109 H 175/113 H 175/113 H Blood Pressure Mean 133 133 133 Pulse Ox 96 92 Oxygen Delivery Method Room Air Room Air MDM MDM MDM Narrative Medical decision making narrative: Comprehensive work-up was pursued. CBC shows normal white count of 6.3, hemoglobin normal at 15.5, normal platelet count of 228. CMP shows normal electrolyte panel. AST is slightly elevated at 59 with an ALT of 111, but alk phos normal at 69. I did add a lipase which is low at 42. CT of the abdomen and pelvis shows fatty infiltration of the liver but stable right renal cyst of which she is aware. There are sigmoid diverticuli but no evidence of diverticulitis. Appendix visualized and is normal. There is a small left inguinal hernia containing fat. Patient is able to ambulate to the bathroom. RN had ordered an EKG which demonstrates normal sinus rhythm at 102 bpm without ectopy or acute ST changes, no significant change from previous. Macroscopic urinalysis currently shows no evidence of infection. I do not feel antibiotics are indicated. His microscopic urinalysis is currently pending. At this point in time, I am unsure as to the cause of his abdominal pain/constipation/obstipation symptoms. It was noted that his blood pressure was elevated at 181/109, repeat has come down to 175/113, and now 169/93. I spoke with his primary care physician, Dr. Shane Contreras, who stated he would like him started on lisinopril and hydrochlorothiazide 05/08. However this is not available so he will be placed on the combination therapy at 04/25.5. He is to follow-up for his elevated blood pressure in a week with his primary care physician. I feel he can be discharged safely home with follow-up. Return instructions to the emergency department were reviewed. Disposition is discharged home in stable condition. Lab Data Attestation: I reviewed the patient's lab results. Labs: Laboratory Results - last 24 hr 08/31/21 08/31/21 08/31/21 11:20 11:20 12:20 WBC 6.3 RBC 5.13 Hgb 15.5 Hct 46.0 MCV 89.7 MCH 30.2 MCHC 33.7 RDW Std Deviation 43.2 RDW Coeff of Kam 13.2 Plt Count 228 MPV 9.6 Immature Gran % (Auto) 1.000 H Neut % (Auto) 66.4 Lymph % (Auto) 21.0 [place] % (Auto) 10.2 H Eos % (Auto) 0.6 Baso % (Auto) 0.8 Absolute Neuts (auto) 4.2 Absolute Lymphs (auto) 1.32 Nucleated RBC % 0 Sodium 136 Potassium 3.7 Chloride 103 Carbon Dioxide 28.0 Anion Gap 5 BUN 12 Creatinine 0.97 Estim Creat Clear Calc 95.68 Est GFR (MDRD) Af Amer 100 Est GFR (MDRD) Non-Af 83 BUN/Creatinine Ratio 12.4 Glucose 136 H Calcium 9.2 Total Bilirubin 0.60 AST 59 H ALT 111 H Alkaline Phosphatase 69 Total Protein 7.6 Albumin 3.9 Globulin 3.7 Albumin/Globulin Ratio 1.1 Lipase 42 L Urine Color Urine Clarity Urine pH Ur Specific [place] Urine Protein Urine Glucose (UA) Urine Ketones Urine Occult Blood Urine Nitrite Urine Bilirubin Urine Urobilinogen Ur Leukocyte Esterase 08/31/21 13:00 WBC RBC Hgb Hct MCV MCH MCHC RDW Std Deviation RDW Coeff of Kam Plt Count MPV Immature Gran % (Auto) Neut % (Auto) Lymph % (Auto) [place] % (Auto) Eos % (Auto) Baso % (Auto) Absolute Neuts (auto) Absolute Lymphs (auto) Nucleated RBC % Sodium Potassium Chloride Carbon Dioxide Anion Gap BUN Creatinine Estim Creat Clear Calc Est GFR (MDRD) Af Amer Est GFR (MDRD) Non-Af BUN/Creatinine Ratio Glucose Calcium Total Bilirubin AST ALT Alkaline Phosphatase Total Protein Albumin Globulin Albumin/Globulin Ratio Lipase Urine Color Yellow Urine Clarity Clear Urine pH 8.0 Ur Specific [place] 1.010 Urine Protein Negative Urine Glucose (UA) Normal Urine Ketones Negative Urine Occult Blood Negative Urine Nitrite Negative Urine Bilirubin Negative Urine Urobilinogen Normal Ur Leukocyte Esterase Negative Radiography Diagnostic Testing: Clinical Impression(s) from Imaging Studies Abdomen/Pelvis CT 08/31/21 11:01 IMPRESSION: Diffuse fatty infiltration of the liver. Stable right renal cyst. Stable increased markings in the root of the mesentery with small lymph nodes. This is unchanged. Small left inguinal hernia containing fat. Sigmoid diverticulosis. Electronically Signed: Arcenio Allen MD at 12:34 EST , Discharge Plan Triage Chief Complaint: Abd Pain ED Provider: Calvin Guzman Dx/Rx/DC Orders Clinical Impression: Hypertension, Abdominal pain Instructions: ED Hypertension New Begin Treatment, ED Abdominal Pain Unkn Cause Male... Prescriptions: New lisinopril-hydrochlorothiazide 10-12.5 mg tablet 1 tab PO DAILY Qty: 30 RF: 0 No Action multivitamin [Multiple Vitamins] 1 EACH tablet 1 ea PO DAILY RF: 0 zinc 22 mg Tablet 22 mg PO DAILY RF: 0 cholecalciferol (vitamin D3) [Vitamin D3] 50 mcg (2,000 unit) Tablet 50 mcg PO DAILY RF: 0 montelukast 10 mg tablet 10 mg PO DAILY RF: 0 albuterol sulfate 90 mcg/actuation HFA aerosol inhaler 2 inh inhalation Q6H PRN (Reason: sob) RF: 0 Arnuity Ellipta 200 mcg/actuation blister with device 1 inh INHALATION QHS RF: 0 omeprazole 20 mg Capsule,Delayed Release(Dr/Ec) 20 mg PO DAILY RF: 0 aspirin 81 mg Capsule 81 mg PO DAILY RF: 0 Primary Care Provider: Shane Contreras Referrals: Shane Contreras MD [Primary Care Provider] - 1 Week Disposition Disposition: Home, Self Care
[2021-08-31 11:20] VITALS: BP 175/113
[2021-08-31 11:25] VITALS: BP 175/113; PULSE 99; RESP 15; O2SAT 92
[2021-08-31] MEDS: 0.9% Normal Saline 1,000 ML 1000 ML IV (11:25)
[2021-08-31 11:34] LABS: Absolute Lymphocyte Count 1.32 X10^3/uL (0.83-4.51); Absolute Neutrophil Count 4.2 X10^3/uL (2.0-7.7); Basophil# 0.05 X10^3/uL; Basophil% 0.8 % (0-1); Eosinophil# 0.04 X10^3/uL; Eosinophils% 0.6 % (0-5); Hemoglobin 15.5 g/dL (13.0-16.5); Lymphocyte # 1.32 X10^3/ul (0.83-4.51); Mean Corp Hgb Conc 33.7 g/dL (32-36); Mean Corpuscular Hgb 30.2 pg (27.0-32.0); Mean Corpuscular Volume 89.7 fL (80-94); Mean Platelet Vol. 9.6 fl (6.2-12.0); Monocyte# 0.64 X10^3/uL; Monocyte% 10.2 % (0-10); NRBC Flagged by Analyzer 0 % (0-5); Neutrophil # 4.18 X10^3/uL (2.7-7.7); Neutrophil % 66.4 % (47-70); Platelet Count 228 K/mm3 (150-450); RBC Distribution Width CV 13.2 % (11.6-14.6); RBC Distribution Width SD 43.2 fl (35.1-43.9); Red Blood Count 5.13 M/mm3 (4.6-6.2); White Blood Count 6.3 K/mm3 (4.4-11.0)
[2021-08-31 11:50] LABS: ALB/GLOB Ratio 1.1 RATIO (0.9-2.4); AST(SGOT) 59 U/L (15-37); Alanine Aminotransfer ALT/SGPT 111 U/L (16-61); Albumin, Serum 3.9 g/dL (3.2-5.0); Alkaline Phosphatase 69 U/L (45-117); Anion Gap 5 (5-15); BUN 12 mg/dL (7-18); BUN/Creat Ratio 12.4 RATIO (10-20); Calcium,Total 9.2 mg/dL (8.5-10.1); Chloride 103 mmol/L (98-107); Creatinine, Serum 0.97 mg/dL (0.70-1.30); EST Glomerular Filtration Rate 83 mL/min (>60); Est Glom Filt Rate - Afr Amer 100 mL/min (>60); Estimated Creatinine Clearance 95.68 ml/min; Globulin 3.7 g/dL (2.2-4.2); Glucose 136 mg/dL (74-106); Potassium 3.7 mmol/L (3.5-5.1); Protein, Total 7.6 g/dL (6.4-8.2); Sodium Level 136 mmol/L (136-145)
[2021-08-31 12:40] LABS: Lipase 42 U/L (73-393)
[2021-08-31 13:08] LABS: Bacteria 0 SEEN /hpf (None Seen); Mucous, Urine 0 SEEN /hpf (<or=2+); Red Blood Cells-Urine 0 SEEN /hpf (0-5); Squamous Epithelial Cells - UA 0 SEEN /hpf (0-5); White Blood Cells 0 SEEN /hpf (0-5)
[2021-08-31 13:09] LABS: Color, Urine Yellow (Yellow); Glucose, Dipstick Normal (Normal); Ketone-Dipstick Negative (Negative); Leukocyte Esterase-Dipstick Negative /ul (Negative); Nitrite-Dipstick Negative (Negative); Occult Blood-Urine Negative /ul (Negative); Protein-Dipstick Negative (Negative); Urine Bilirubin Dipstick Negative (Negative); Urine Clarity Clear (Clear); Urine Urobilinogen Normal (Normal)
[2021-08-31 13:31] VITALS: BP 168/102; PULSE 93; RESP 16; O2SAT 94
== END 2021-08-31 13:40 | disposition home or self-care (01) ==
PROVIDERS: Emergency Provider Emergency Medicine; PCP Family Medicine; Visit Provider Emergency Medicine
DX: K59.00 Constipation, unspecified (principal); K76.0 Fatty (change of) liver, not elsewhere classified; I10 Essential (primary) hypertension; K40.90 Unilateral inguinal hernia, without obstruction or gangrene, not specified as recurrent; N28.1 Cyst of kidney, acquired; J45.909 Unspecified asthma, uncomplicated; Z79.82 Long term (current) use of aspirin; Z79.899 Other long term (current) drug therapy; K57.30 Diverticulosis of large intestine without perforation or abscess without bleeding
CPT/HCPCS: 74177; 80053; 81001; 83690; 85025; 93005; 96360; 96361; 99284; J7030; Q9967; A4216

== ENCOUNTER 2021-09-06 09:11 | Outpatient (CLI) | payer MEDICARE, OTHER, SELFPAY ==
[2021-09-06 10:20] LABS: Absolute Lymphocyte Count 1.34 X10^3/uL (0.83-4.51); Absolute Neutrophil Count 4.5 X10^3/uL (2.0-7.7); Basophil# 0.03 X10^3/uL; Basophil% 0.4 % (0-1); Eosinophil# 0.05 X10^3/uL; Eosinophils% 0.7 % (0-5); Hematocrit 49.8 % (40-54); Hemoglobin 17.1 g/dL (13.0-16.5); Lymphocyte # 1.34 X10^3/ul (0.83-4.51); Lymphocyte % 20.1 % (19-41); Mean Corp Hgb Conc 34.3 g/dL (32-36); Mean Corpuscular Volume 90.2 fL (80-94); Mean Platelet Vol. 9.8 fl (6.2-12.0); Monocyte# 0.69 X10^3/uL; Monocyte% 10.3 % (0-10); NRBC Flagged by Analyzer 0 % (0-5); Neutrophil # 4.51 X10^3/uL (2.7-7.7); Neutrophil % 67.6 % (47-70); Platelet Count 284 K/mm3 (150-450); RBC Distribution Width CV 13.2 % (11.6-14.6); RBC Distribution Width SD 43.6 fl (35.1-43.9); Red Blood Count 5.52 M/mm3 (4.6-6.2); White Blood Count 6.7 K/mm3 (4.4-11.0)
[2021-09-06 11:08] LABS: AST(SGOT) 61 U/L (15-37); Alanine Aminotransfer ALT/SGPT 114 U/L (16-61); Albumin, Serum 4.1 g/dL (3.2-5.0); Alkaline Phosphatase 58 U/L (45-117); Anion Gap 9 (5-15); BUN 14 mg/dL (7-18); BUN/Creat Ratio 13.5 RATIO (10-20); Calcium,Total 9.2 mg/dL (8.5-10.1); Chloride 97 mmol/L (98-107); Cholesterol 205 mg/dL (200); Creatinine, Serum 1.04 mg/dL (0.70-1.30); EST Glomerular Filtration Rate 76 mL/min (>60); Est Glom Filt Rate - Afr Amer 92 mL/min (>60); Globulin 4.1 g/dL (2.2-4.2); Glucose 131 mg/dL (74-106); High Density Lipoprotein 58 mg/dL; PSA,Total- Diagnostic 0.58 ng/mL (0.0-4.0); Potassium 3.7 mmol/L (3.5-5.1); Protein, Total 8.2 g/dL (6.4-8.2); Sodium Level 132 mmol/L (136-145); Thyroid Stim Hormone (TSH) 5.58 uIU/mL (0.358-3.74); Triglycerides 116 mg/dL; Very Low Density Lipoprotein 23 mg/dL (5-40)
[2021-09-06 12:24] LABS: Hemoglobin A1c 6.1 % (3.8-5.6)
== END 2021-09-06 23:59 | disposition home or self-care (01) ==
LOC: MFPLAB 09:16
PROVIDERS: PCP Family Medicine; Referring Provider Family Medicine; Visit Provider Family Medicine
DX: I10 Essential (primary) hypertension (principal); R53.83 Other fatigue; N40.0 Benign prostatic hyperplasia without lower urinary tract symptoms
CPT/HCPCS: 36415; 80053; 80061; 83036; 84153; 84403; 84443; 85025

== ENCOUNTER 2021-10-24 13:50 | Outpatient (CLI) | payer MEDICARE, OTHER, SELFPAY ==
--- NOTE | 2021-10-24 13:51 | ECHOCS_ITS ---
Reason For Study: TACHYCARDIA, HTN, DECREASED EXERCISE CAPACITY Procedure This was a 2D Doppler, Color Flow transthoracic echocardiogram. Contrast injection was performed. Exam performed in department. Left Ventricle Normal LV size. The estimated ejection fraction is 55-60 %. Normal diastology for age. No regional wall motion abnormalities noted. Right Ventricle Normal RV size. Normal systolic function. Atria Normal left atrium. Normal right atrium. No doppler evidence for ASD. Mitral Valve There is no mitral valve stenosis. No mitral valve insufficiency. Tricuspid Valve There is no tricuspid stenosis. Trivial tricuspid valve insufficiency. Unable to estimate RV systolic pressure due to insufficient tricuspid regurgitant envelope. Aortic Valve Trisinus/trileaflet aortic valve. There is no aortic stenosis. No aortic valve insufficiency. Pulmonic Valve There is no pulmonic valvular stenosis. No pulmonic valve insufficiency. Great Vessels Normal aortic root. Pericardium/Pleural No pericardial effusion. Medication 22 gauge I.V. with prn adaptor inserted into left arm. Diluted definity 2.0ml given slow IV push to enhance endocardial definition. MMode/2D Measurements & Calculations LVIDd: 5.0 cm IVSd: 1.1 cm Ao root diam: 3.6 cm LVIDs: 3.4 cm LVPWd: 1.1 cm RVDd: 3.5 cm FS: 31.2 % LAV(MOD-bp): 48.9 ml LVAd ap4: 34.4 cm2 LVAd ap2: 28.6 cm2 LAV(MOD-bp) Indexed: 18.9 ml/m2 LVLd ap4: 9.8 cm LVLd ap2: 9.0 cm LAV(MOD-sp2): 47.5 ml EDV(MOD-sp4): 99.3 ml EDV(MOD-sp2): 78.7 ml LAV(MOD-sp4): 47.4 ml EDV(sp4-el): 102.9 ml EDV(sp2-el): 77.0 ml LVAs ap4: 15.9 cm2 LVAs ap2: 14.3 cm2 LVLs ap4: 7.8 cm LVLs ap2: 7.5 cm ESV(MOD-sp4): 27.2 ml ESV(MOD-sp2): 22.8 ml ESV(sp4-el): 27.5 ml ESV(sp2-el): 23.2 ml EF(MOD-sp4): 72.6 % EF(MOD-sp2): 71.0 % EF(sp4-el): 73.3 % SV(MOD-sp4): 72.1 ml SV(MOD-sp2): 55.8 ml SV(sp4-el): 75.4 ml LA A4 area: 16.5 cm2 LA dimension(2D): 4.3 cm RA A4 area: 13.5 cm2 Doppler Measurements & Calculations MV E max frank: 63.5 cm/sec Lat Peak E' Frank: 6.3 cm/sec Med Peak E' Frank: 6.5 cm/sec MV A max frank: 77.4 cm/sec E/E' lat: 10.1 E/E' med: 9.7 MV E/A: 0.82 Ao V2 max: 135.2 cm/sec LV V1 max: 96.1 cm/sec PA V2 max: 106.6 cm/sec Ao max P.3 mmHg LV V1 max P.7 mmHg ECHO/Echo Complete W/ Contrast Interpretation Summary The estimated ejection fraction is 55-60 %. No significant valvular abnormalities Ordering Physician: Tara Vargas Referring Physician: Shane Contreras Performed By: Nia Espinosa, KRISTIN, RVT
== END 2021-10-24 23:59 | disposition home or self-care (01) ==
LOC: CVS 13:51
PROVIDERS: PCP Family Medicine; Referring Provider Specialist; Visit Provider Specialist
DX: R00.0 Tachycardia, unspecified (principal); I10 Essential (primary) hypertension; R94.31 Abnormal electrocardiogram [ECG] [EKG]
CPT/HCPCS: 93306; Q9957; A4216; C8929

== ENCOUNTER → 2021-11-06 | Outpatient (CLI) | payer MEDICARE, OTHER, SELFPAY ==
[2021-11-06 19:13] LABS: Anion Gap 6 (5-15); BUN 16 mg/dL (7-18); Calcium,Total 9.3 mg/dL (8.5-10.1); Chloride 100 mmol/L (98-107); Cholesterol 189 mg/dL (200); Creatinine, Serum 0.89 mg/dL (0.70-1.30); EST Glomerular Filtration Rate 91 mL/min (>60); Est Glom Filt Rate - Afr Amer 110 mL/min (>60); Free T3 3.2 pg/mL (2.18-3.98); Glucose 102 mg/dL (74-106); High Density Lipoprotein 46 mg/dL; Potassium 3.6 mmol/L (3.5-5.1); Sodium Level 136 mmol/L (136-145); T4 Free Direct 1.16 ng/dL (0.76-1.46); Thyroid Stim Hormone (TSH) 1.43 uIU/mL (0.358-3.74); Triglycerides 114 mg/dL; Very Low Density Lipoprotein 23 mg/dL (5-40)
== END | disposition home or self-care (01) ==
LOC: MFPLAB 14:54
PROVIDERS: PCP Family Medicine; Visit Provider Family Medicine
DX: E03.9 Hypothyroidism, unspecified (principal); I10 Essential (primary) hypertension
CPT/HCPCS: 36415; 80048; 80061; 84439; 84443; 84481

== ENCOUNTER → 2022-05-09 | Outpatient (CLI) | payer MEDICARE, OTHER, SELFPAY ==
[2022-05-09 18:19] LABS: Microalbumin,Random Urine < 5.0 mg/L (NO RANGE EST.)
[2022-05-09 18:55] LABS: Hemoglobin A1c 5.9 % (3.8-5.6)
[2022-05-09 19:15] LABS: Anion Gap 8 (5-15); BUN 12 mg/dL (7-18); BUN/Creat Ratio 13.5 RATIO (10-20); Calcium,Total 8.9 mg/dL (8.5-10.1); Chloride 102 mmol/L (98-107); Cholesterol 200 mg/dL (200); Creatinine, Serum 0.89 mg/dL (0.70-1.30); EST Glomerular Filtration Rate 91 mL/min (>60); Est Glom Filt Rate - Afr Amer 110 mL/min (>60); Free T3 2.9 pg/mL (2.18-3.98); Glucose 99 mg/dL (74-106); High Density Lipoprotein 43 mg/dL; Potassium 3.5 mmol/L (3.5-5.1); Sodium Level 136 mmol/L (136-145); T4 Free Direct 0.99 ng/dL (0.76-1.46); Thyroid Stim Hormone (TSH) 2.17 uIU/mL (0.358-3.74); Triglycerides 220 mg/dL; Very Low Density Lipoprotein 44 mg/dL (5-40)
== END | disposition home or self-care (01) ==
LOC: MFPLAB 15:21
PROVIDERS: PCP Family Medicine; Referring Provider Family Medicine; Visit Provider Family Medicine
DX: I10 Essential (primary) hypertension (principal); E11.9 Type 2 diabetes mellitus without complications; R53.83 Other fatigue; E03.9 Hypothyroidism, unspecified
CPT/HCPCS: 36415; 80048; 80061; 82043; 82570; 83036; 84403; 84439; 84443; 84481

== ENCOUNTER → 2022-05-25 | Outpatient (CLI) | payer MEDICARE, OTHER, SELFPAY ==
--- NOTE | 2022-05-25 11:40 | RAD_ITS ---
STUDY: X-RAY CHEST REASON FOR EXAM: Male, 66 years old. CHEST PAIN COUGH TECHNIQUE: XR Chest 2 Views COMPARISON: 12/27/2015 FINDINGS: There is no demonstrated pleural abnormality. Normal size heart. Normal mediastinum and madelyn. Normal visualized pulmonary arteries. Normal visualized aortic arch and descending thoracic aorta. Normal visualized thoracic spine. Normal visualized ribs, clavicles, and shoulders. There is no demonstrated abnormality of the visualized soft tissue structures of the upper abdomen. RAD/Chest PA and Lateral IMPRESSION: There are no acute findings. Electronically Signed: Emeka Marvin MD at 17:13 EST ,
== END | disposition home or self-care (01) ==
LOC: RAD 11:31
PROVIDERS: PCP Family Medicine; Referring Provider Internal Medicine Pulmonary Disease; Visit Provider Internal Medicine Pulmonary Disease
DX: R05.9 Cough, unspecified (principal)
CPT/HCPCS: 71046

== ENCOUNTER → 2022-06-27 | Outpatient (CLI) | payer MEDICARE, OTHER, SELFPAY ==
--- NOTE | 2022-06-27 15:58 | RAD_ITS ---
EXAM: XR RIGHT FINGERS, 2 OR MORE VIEWS CLINICAL INDICATION: THUMB PAIN -- FIRST DIGIT TECHNIQUE: Frontal, lateral and oblique views of the fingers of the right hand. This report was created using [employer] report generation technology. COMPARISON: None. FINDINGS: BONES/JOINTS: Unremarkable. No acute fracture. No subluxation. Normal alignment. Preservation of the joint space. No sclerotic or destructive changes observed. SOFT TISSUES: Unremarkable. No soft tissue swelling or gas. No radiopaque foreign body. RAD/Finger(s) Min 2 Views IMPRESSION: Negative x-rays of the visualized right fingers. Electronically Signed: Klever Mehta MD at 3:33 EST ,
[2022-06-27 18:17] LABS: Uric Acid 5.3 mg/dL (3.5-7.2)
== END | disposition home or self-care (01) ==
LOC: MTLAB 15:56
PROVIDERS: PCP Family Medicine; Referring Provider Family Medicine; Visit Provider Family Medicine
DX: M79.646 Pain in unspecified finger(s) (principal)
CPT/HCPCS: 36415; 73140; 84550

== ENCOUNTER → 2022-09-24 | Outpatient (CLI) | payer MEDICARE, OTHER, SELFPAY ==
[2022-09-24 16:24] LABS: PSA,Total - Annual Screen 0.71 ng/mL (0.00-4.00)
== END | disposition home or self-care (01) ==
LOC: LAB 15:09
PROVIDERS: PCP Family Medicine; Visit Provider Registered Nurse
DX: Z12.5 Encounter for screening for malignant neoplasm of prostate (principal)
CPT/HCPCS: 36415; 84153; G0103

== ENCOUNTER → 2022-11-09 | Outpatient (CLI) | payer MEDICARE, OTHER, SELFPAY ==
[2022-11-09 10:43] LABS: Anion Gap 5 (5-15); BUN 16 mg/dL (7-18); BUN/Creat Ratio 16.8 RATIO (10-20); Calcium,Total 9.2 mg/dL (8.5-10.1); Chloride 106 mmol/L (98-107); Cholesterol 107 mg/dL (200); Creatinine, Serum 0.96 mg/dL (0.70-1.30); EST Glomerular Filtration Rate 84 mL/min (>60); Est Glom Filt Rate - Afr Amer 101 mL/min (>60); Glucose 117 mg/dL (74-106); High Density Lipoprotein 45 mg/dL; Potassium 3.8 mmol/L (3.5-5.1); Sodium Level 136 mmol/L (136-145); T4 Free Direct 1.09 ng/dL (0.76-1.46); Thyroid Stim Hormone (TSH) 1.85 uIU/mL (0.358-3.74); Triglycerides 129 mg/dL; Very Low Density Lipoprotein 26 mg/dL (5-40)
== END | disposition home or self-care (01) ==
LOC: MFPLAB 08:46
PROVIDERS: PCP Family Medicine; Visit Provider Family Medicine
DX: E03.9 Hypothyroidism, unspecified (principal); E11.9 Type 2 diabetes mellitus without complications
CPT/HCPCS: 36415; 80048; 80061; 84439; 84443; 84481

== ENCOUNTER → 2022-11-19 | Outpatient (CLI) | payer MEDICARE, OTHER, SELFPAY ==
[2022-11-19 18:23] LABS: ALB/GLOB Ratio 1.2 RATIO (0.9-2.4); AST(SGOT) 22 U/L (15-37); Alanine Aminotransfer ALT/SGPT 33 U/L (16-61); Albumin, Serum 4.1 g/dL (3.2-5.0); Alkaline Phosphatase 43 U/L (45-117); Anion Gap 6 (5-15); BUN 13 mg/dL (7-18); BUN/Creat Ratio 13.1 RATIO (10-20); CRP < 2.90 mg/L (0.0-3.0); Calcium,Total 9.1 mg/dL (8.5-10.1); Chloride 100 mmol/L (98-107); EST Glomerular Filtration Rate 80 mL/min (>60); Est Glom Filt Rate - Afr Amer 97 mL/min (>60); Globulin 3.4 g/dL (2.2-4.2); Glucose 105 mg/dL (74-106); Potassium 3.7 mmol/L (3.5-5.1); Protein, Total 7.5 g/dL (6.4-8.2); Sodium Level 135 mmol/L (136-145)
[2022-11-19 18:32] LABS: Erythrocyte Sedimentation Rate 14 mm/hr (0-20)
[2022-11-19 18:33] LABS: Hematocrit 47.5 % (40-54); Hemoglobin 15.5 g/dL (13.0-16.5); Mean Corp Hgb Conc 32.6 g/dL (32-36); Mean Corpuscular Hgb 29.4 pg (27.0-32.0); Mean Corpuscular Volume 90.1 fL (80-94); Mean Platelet Vol. 10.2 fl (6.2-12.0); Platelet Count 256 K/mm3 (150-450); RBC Distribution Width CV 13.1 % (11.6-14.6); Red Blood Count 5.27 M/mm3 (4.6-6.2)
== END | disposition home or self-care (01) ==
LOC: MFPLAB 15:43
PROVIDERS: PCP Family Medicine; Visit Provider Internal Medicine Pulmonary Disease
DX: G47.33 Obstructive sleep apnea (adult) (pediatric) (principal)
CPT/HCPCS: 36415; 80053; 85027; 85652; 86140

== ENCOUNTER 2022-12-09 15:39 | Emergency (ER) | payer MEDICARE, OTHER, SELFPAY ==
[2022-12-09 15:40] VITALS: BP 135/109; PULSE 86; RESP 16; TEMP 36.3; O2SAT 97; BMI 32.5
--- NOTE | 2022-12-09 15:56 | ED.VIS.DYS ---
HPI <HERBIE Eric - Last Filed: 12/09/22 17:12> History of Present Illness Chief Complaint: Shortness of Breath Narrative Narrative: 67-year-old male with PMH of HTN, HLD, DM2, asthma presents with 4 days of shortness of breath. He typically walks 1-2 miles every day and 4 days ago was walking when he started to feel lightheaded. This feeling has persisted and he started having exertional shortness of breath with walking. 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 Denies chest pain. He has a bit of a chronic cough which is unchanged. 2 weeks ago he was having dyspepsia and had an EGD which showed gastritis. He started omeprazole and famotidine and the symptoms improved. He denies personal cardiac history. His father had an SC in his 60s. Patient has no smoking history. He has never had a stress test. He denies history of DVT/PE. PFSH <HERBIE Eric - Last Filed: 12/09/22 17:12> [facility] Medical History (Updated 12/09/22 @ 17:[address] Kapil Fine, DO) Asthma COVID-19 COVID-19 Essential hypertension Exposure to COVID-19 virus GERD (gastroesophageal reflux disease) History of skin cancer Hypothyroidism Lower GI bleeding LUKE on CPAP Tachycardia Type 2 diabetes mellitus without complication Home Medications montelukast 10 mg tablet 10 mg PO DAILY 03/21/21 [History Last Taken Unknown] lisinopril 10 mg-hydrochlorothiazide 12.5 mg tablet 1 tab PO DAILY #30 tabs 08/31/21 [Rx Last Taken Unknown] cholecalciferol (vitamin D3) 50 mcg (2,000 unit) tablet (Vitamin D3) 2,000 unit PO DAILY 09/15/21 [History Last Taken Unknown] levothyroxine 50 mcg tablet 50 mcg PO DAILY 09/15/21 [History Last Taken Unknown] metformin 500 mg tablet 500 mg PO DAILY 09/15/21 [History Last Taken Unknown] albuterol sulfate 90 mcg/actuation aerosol inhaler 2 puff inhalation Q6H PRN 06/13/22 [History Last Taken Unknown] nirmatrelvir 300 mg (150 mg x2)-ritonavir 100 mg tablet,dose pack(EUA) (Paxlovid) See Rx Instructions PO .COMPLEX #30 tabs 06/13/22 [Rx Last Taken Unknown] tamsulosin 0.4 mg capsule 0.4 mg PO DAILY 06/13/22 [History Last Taken Unknown] Allergy/AdvReac Type Severity Reaction Status Date / Time amoxicillin trihydrate Allergy Rash Verified 10/31/21 14:00 [From Augmentin] potassium clavulanate Allergy Rash Verified 10/31/21 14:00 [From Augmentin] Family History Mother Breast cancer Father Heart disease Cancer Kidney Surgical History H/O hernia repair History of drainage of abscess Social History Smoking Status: Never smoker alcohol intake: never substance use type: does not use caffeine: No (Over the last 3 weeks) ROS <HERBIE Eric - Last Filed: 12/09/22 17:12> ROS ED ROS Narrative Constitutional: Negative for fever, chills, malaise. CVS: Negative for palpitations, chest pain, syncope. Respiratory: Positive for shortness of breath, cough. Negative for orthopnea. GI: Negative for abdominal pain, nausea, vomiting. EXAM <HERBIE Eric - Last Filed: 12/09/22 17:12> Physical Exam Narrative Exam Narrative: CONST: Patient sitting in no acute distress. EYES: Normal inspection. NECK: Normal inspection. RESP: No respiratory distress, CTAB. CVS: Regular rate and rhythm, no murmur, no gallop. ABD: Soft and nontender, no guarding or rebound, nondistended. SKIN: Color normal, no rash, warm, dry, intact. EXTREMITIES: Normal appearance, no pedal edema. NEURO: Oriented x4. PSYCH: Normal affect. Const Vital Signs: 12/09/22 15:40 12/09/22 16:05 12/09/22 16:20 Temperature 97.4 F L Temperature Source Temporal Pulse Rate 86 Pulse Rate [Lying] 88 Pulse Rate [Sitting (for 1 minute prior to obtaining)] 98 Respiratory Rate 16 Respiratory Effort Short of Breath Blood Pressure 135/109 H Blood Pressure [Lying] 134/81 H Blood Pressure [Sitting (for 1 minute prior to obtaining)] 142/92 H Blood Pressure [Standing (for 1 minute prior to obtaining)] 144/99 H Blood Pressure Mean 117 Blood Pressure Mean [Lying] 98 Blood Pressure Mean [Sitting (for 1 minute prior to obtaining)] 108 Blood Pressure Mean [Standing (for 1 minute prior to obtaining)] 114 Pulse Ox 97 Oxygen Delivery Method Room Air <Dr. Kapil Fine DO - Last Filed: 12/09/22 17:07> Physical Exam Const Vital Signs: 12/09/22 15:40 12/09/22 16:05 12/09/22 16:20 Temperature 97.4 F L Temperature Source Temporal Pulse Rate 86 Pulse Rate [Lying] 88 Pulse Rate [Sitting (for 1 minute prior to obtaining)] 98 Respiratory Rate 16 Respiratory Effort Short of Breath Blood Pressure 135/109 H Blood Pressure [Lying] 134/81 H Blood Pressure [Sitting (for 1 minute prior to obtaining)] 142/92 H Blood Pressure [Standing (for 1 minute prior to obtaining)] 144/99 H Blood Pressure Mean 117 Blood Pressure Mean [Lying] 98 Blood Pressure Mean [Sitting (for 1 minute prior to obtaining)] 108 Blood Pressure Mean [Standing (for 1 minute prior to obtaining)] 114 Pulse Ox 97 Oxygen Delivery Method Room Air MDM <HERBIE Eric - Last Filed: 12/09/22 17:12> [facility] Narrative Medical decision making narrative: Recent lightheadedness, exertional dyspnea, now having dyspnea with speaking. No chest pain. He appears well and nontoxic. BP 135/109 otherwise normal vital signs. His medical exam is unremarkable. He is able to speak to me in full sentences in no distress. EKG is sinus rhythm with PVCs but no ischemic changes. Troponin 5 and D-dimer negative. Basic labs unremarkable. CXR unremarkable. With increase in symptoms over the last few days and heart score of 5 I do think he should get a stress test. Patient will be admitted and case discussed with the hospitalist. Differential: ACS, PE, asthma Consults: Hospitalist I have personally performed a face to face assessment of the patient and have reviewed the BEBA Note. I performed a substantive portion of the visit including all aspects of the following. My barros findings include: History is [patient presents with exertional dyspnea and lightheadedness x4 days. He kept thinking symptoms would pass. 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 He denies chest pain or pressure or heaviness. He has had some episodes of lightheadedness especially with walking that would get better with rest. Patient states that his father had bypass surgery when he was about his age. Patient also has history of diabetes as well as hypertension and cholesterol. Patient denies recent travel or surgery. He denies recent illness. Patient has never had a stress test or cardiac work-up. No anxiety history.] Exam is [HEENT-PERRLA, EOMI. Cranial nerves II through XII grossly intact. TMs clear. Mucous membranes moist. No adenopathy. Cardiovascular-regular rate and rhythm without murmur or ectopy Lungs-clear to auscultation, chest wall stable without crepitus or subcu emphysema Abdomen-normoactive bowel sounds, soft, nontender, no rebound or rigidity, no peritoneal signs. Extremities-intact ?4, normal range of motion, normal pulses, atraumatic] Medical Decison Making [patient presents with exertional dyspnea and lightheadedness. Orthostatic vital signs were negative. EKG obtained on arrival showed sinus rhythm with a ventricular rate in the 80s. He had PVCs but no acute ST segment changes noted. CBC with differential is normal. Chemistries unremarkable. Troponin normal. D-dimer normal. Chest x-ray was unremarkable. Etiology of his lightheadedness and exertional dyspnea unclear. His heart score is a 5. Recommended admission for further testing such as stress testing. Case will be discussed with hospitalist evaluate for admission.] Other additions or changes: [None] Lab Data Attestation: I reviewed the patient's lab results. Labs: Laboratory Results - last 24 hr 12/09/22 12/09/22 12/09/22 16:01 16:01 16:01 WBC Cancelled Corrected WBC Cancelled RBC Cancelled Hgb Cancelled Hct Cancelled MCV Cancelled MCH Cancelled MCHC Cancelled RDW Std Deviation Cancelled RDW Coeff of Kam Cancelled Plt Count Cancelled MPV Cancelled Immature Gran % (Auto) Cancelled Neut % (Auto) Cancelled Lymph % (Auto) Cancelled [place] % (Auto) Cancelled Eos % (Auto) Cancelled Baso % (Auto) Cancelled Absolute Neuts (auto) Cancelled Absolute Lymphs (auto) Cancelled Total Counted Cancelled Neutrophils % (Manual) Cancelled Band Neutrophils % Cancelled Lymphocytes % (Manual) Cancelled Monocytes % (Manual) Cancelled Eosinophils % (Manual) Cancelled Basophils % (Manual) Cancelled Metamyelocytes % Cancelled Myelocytes % Cancelled Promyelocytes % Cancelled Blast Cells % Cancelled Plasma Cell % (Manual) Cancelled Other Cells % Cancelled Nucleated RBC % Cancelled Nucleated RBCs/100 WBC Cancelled Differential Comment Cancelled Diff Path Review Cancelled Hypersegmented Neuts Cancelled Atypical Lymphocytes Cancelled Reactive Lymphocytes Cancelled Smudge Cells Cancelled Toxic Granulation Cancelled Toxic Vacuolation Cancelled Dohle Bodies Cancelled Lauryn Rods Cancelled Platelet Estimate Cancelled Plt Morphology Comment Cancelled RBC Morphology Cancelled Polychromasia Cancelled Hypochromasia Cancelled Poikilocytosis Cancelled Basophilic Stippling Cancelled Anisocytosis Cancelled Microcytosis Cancelled Macrocytosis Cancelled Spherocytes Cancelled Sickle Cells Cancelled Target Cells Cancelled Tear Drop Cells Cancelled Ovalocytes Cancelled Stomatocytes Cancelled Prather-Kinta Bodies Cancelled Lindy Cells Cancelled Bite Cells Cancelled Crenated Cell Cancelled Acanthocytes (Spur) Cancelled Rouleaux Cancelled Schistocytes Cancelled D-Dimer Quant (PE/DVT) 0.29 Sodium 141 Potassium 3.8 Chloride 107 Carbon Dioxide 27.0 Anion Gap 7 BUN 11 Creatinine 1.02 Estim Creat Clear Calc 89.78 Est GFR (MDRD) Af Amer 94 Est GFR (MDRD) Non-Af 78 BUN/Creatinine Ratio 10.8 Glucose 137 H Calcium 8.7 Total Bilirubin 0.40 AST 16 ALT 27 Alkaline Phosphatase 70 Troponin I High Sens 5 Total Protein 7.4 Albumin 3.8 Globulin 3.6 Albumin/Globulin Ratio 1.1 12/09/22 16:30 WBC 7.1 Corrected WBC RBC 4.85 Hgb 14.5 Hct 43.6 MCV 89.9 MCH 29.9 MCHC 33.3 RDW Std Deviation 44.3 H RDW Coeff of Kam 13.3 Plt Count 223 MPV 9.7 Immature Gran % (Auto) 0.600 Neut % (Auto) 59.2 Lymph % (Auto) 26.4 [place] % (Auto) 11.8 H Eos % (Auto) 1.4 Baso % (Auto) 0.6 Absolute Neuts (auto) 4.2 Absolute Lymphs (auto) 1.87 Total Counted Neutrophils % (Manual) Band Neutrophils % Lymphocytes % (Manual) Monocytes % (Manual) Eosinophils % (Manual) Basophils % (Manual) Metamyelocytes % Myelocytes % Promyelocytes % Blast Cells % Plasma Cell % (Manual) Other Cells % Nucleated RBC % 0 Nucleated RBCs/100 WBC Differential Comment Diff Path Review Hypersegmented Neuts Atypical Lymphocytes Reactive Lymphocytes Smudge Cells Toxic Granulation Toxic Vacuolation Dohle Bodies Lauryn Rods Platelet Estimate Plt Morphology Comment RBC Morphology Polychromasia Hypochromasia Poikilocytosis Basophilic Stippling Anisocytosis Microcytosis Macrocytosis Spherocytes Sickle Cells Target Cells Tear Drop Cells Ovalocytes Stomatocytes Prather-Kinta Bodies [place] Cells Bite Cells Crenated Cell Acanthocytes (Spur) Rouleaux Schistocytes D-Dimer Quant (PE/DVT) Sodium Potassium Chloride Carbon Dioxide Anion Gap BUN Creatinine Estim Creat Clear Calc Est GFR (MDRD) Af Amer Est GFR (MDRD) Non-Af BUN/Creatinine Ratio Glucose Calcium Total Bilirubin AST ALT Alkaline Phosphatase Troponin I High Sens Total Protein Albumin Globulin Albumin/Globulin Ratio Radiography Diagnostic Testing: Clinical Impression(s) from Imaging Studies Chest X-Ray 12/09/22 16:35 IMPRESSION: No acute cardiopulmonary disease. Electronically Signed: Shane Perry MD at 17:02 EDT , 1 view chest x-ray obtained interpreted by myself no acute disease process as there was no evidence of infiltrate or pneumothorax. EKG Initial EKG: Attestation: I personally reviewed and interpreted this EKG as follows: Interpretation: Sinus Rhythm and No Acute Injury Pattern Comments: ED attending interpretation of EKG shows sinus rhythm with occasional PVCs, 86 bpm, no ST segment changes <Dr. Kapil Fine, DO - Last Filed: 12/09/22 17:07> [facility] Narrative Medical decision making narrative: I have personally performed a face to face assessment of the patient and have reviewed the BEBA Note. I performed a substantive portion of the visit including all aspects of the following. My barros findings include: History is [patient presents with exertional dyspnea and lightheadedness x4 days. He kept thinking symptoms would pass. 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 He denies chest pain or pressure or heaviness. He has had some episodes of lightheadedness especially with walking that would get better with rest. Patient states that his father had bypass surgery when he was about his age. Patient also has history of diabetes as well as hypertension and cholesterol. Patient denies recent travel or surgery. He denies recent illness. Patient has never had a stress test or cardiac work-up. No anxiety history.] Exam is [HEENT-PERRLA, EOMI. Cranial nerves II through XII grossly intact. TMs clear. Mucous membranes moist. No adenopathy. Cardiovascular-regular rate and rhythm without murmur or ectopy Lungs-clear to auscultation, chest wall stable without crepitus or subcu emphysema Abdomen-normoactive bowel sounds, soft, nontender, no rebound or rigidity, no peritoneal signs. Extremities-intact ?4, normal range of motion, normal pulses, atraumatic] Medical Decison Making [patient presents with exertional dyspnea and lightheadedness. Orthostatic vital signs were negative. EKG obtained on arrival showed sinus rhythm with a ventricular rate in the 80s. He had PVCs but no acute ST segment changes noted. CBC with differential is normal. Chemistries unremarkable. Troponin normal. D-dimer normal. Chest x-ray was unremarkable. Etiology of his lightheadedness and exertional dyspnea unclear. His heart score is a 5. Recommended admission for further testing such as stress testing. Case will be discussed with hospitalist evaluate for admission.] Other additions or changes: [None] Lab Data Labs: Laboratory Results - last 24 hr 12/09/22 12/09/22 12/09/22 16:01 16:01 16:01 WBC Cancelled Corrected WBC Cancelled RBC Cancelled Hgb Cancelled Hct Cancelled MCV Cancelled MCH Cancelled MCHC Cancelled RDW Std Deviation Cancelled RDW Coeff of Kam Cancelled Plt Count Cancelled MPV Cancelled Immature Gran % (Auto) Cancelled Neut % (Auto) Cancelled Lymph % (Auto) Cancelled [place] % (Auto) Cancelled Eos % (Auto) Cancelled Baso % (Auto) Cancelled Absolute Neuts (auto) Cancelled Absolute Lymphs (auto) Cancelled Total Counted Cancelled Neutrophils % (Manual) Cancelled Band Neutrophils % Cancelled Lymphocytes % (Manual) Cancelled Monocytes % (Manual) Cancelled Eosinophils % (Manual) Cancelled Basophils % (Manual) Cancelled Metamyelocytes % Cancelled Myelocytes % Cancelled Promyelocytes % Cancelled Blast Cells % Cancelled Plasma Cell % (Manual) Cancelled Other Cells % Cancelled Nucleated RBC % Cancelled Nucleated RBCs/100 WBC Cancelled Differential Comment Cancelled Diff Path Review Cancelled Hypersegmented Neuts Cancelled Atypical Lymphocytes Cancelled Reactive Lymphocytes Cancelled Smudge Cells Cancelled Toxic Granulation Cancelled Toxic Vacuolation Cancelled Dohle Bodies Cancelled Lauryn Rods Cancelled Platelet Estimate Cancelled Plt Morphology Comment Cancelled RBC Morphology Cancelled Polychromasia Cancelled Hypochromasia Cancelled Poikilocytosis Cancelled Basophilic Stippling Cancelled Anisocytosis Cancelled Microcytosis Cancelled Macrocytosis Cancelled Spherocytes Cancelled Sickle Cells Cancelled Target Cells Cancelled Tear Drop Cells Cancelled Ovalocytes Cancelled Stomatocytes Cancelled Prather-Kinta Bodies Cancelled [place] Cells Cancelled Bite Cells Cancelled Crenated Cell Cancelled Acanthocytes (Spur) Cancelled Rouleaux Cancelled Schistocytes Cancelled D-Dimer Quant (PE/DVT) 0.29 Sodium 141 Potassium 3.8 Chloride 107 Carbon Dioxide 27.0 Anion Gap 7 BUN 11 Creatinine 1.02 Estim Creat Clear Calc 89.78 Est GFR (MDRD) Af Amer 94 Est GFR (MDRD) Non-Af 78 BUN/Creatinine Ratio 10.8 Glucose 137 H Calcium 8.7 Total Bilirubin 0.40 AST 16 ALT 27 Alkaline Phosphatase 70 Troponin I High Sens 5 Total Protein 7.4 Albumin 3.8 Globulin 3.6 Albumin/Globulin Ratio 1.1 12/09/22 16:30 WBC 7.1 Corrected WBC RBC 4.85 Hgb 14.5 Hct 43.6 MCV 89.9 MCH 29.9 MCHC 33.3 RDW Std Deviation 44.3 H RDW Coeff of Kam 13.3 Plt Count 223 MPV 9.7 Immature Gran % (Auto) 0.600 Neut % (Auto) 59.2 Lymph % (Auto) 26.4 [place] % (Auto) 11.8 H Eos % (Auto) 1.4 Baso % (Auto) 0.6 Absolute Neuts (auto) 4.2 Absolute Lymphs (auto) 1.87 Total Counted Neutrophils % (Manual) Band Neutrophils % Lymphocytes % (Manual) Monocytes % (Manual) Eosinophils % (Manual) Basophils % (Manual) Metamyelocytes % Myelocytes % Promyelocytes % Blast Cells % Plasma Cell % (Manual) Other Cells % Nucleated RBC % 0 Nucleated RBCs/100 WBC Differential Comment Diff Path Review Hypersegmented Neuts Atypical Lymphocytes Reactive Lymphocytes Smudge Cells Toxic Granulation Toxic Vacuolation Dohle Bodies Lauryn Rods Platelet Estimate Plt Morphology Comment RBC Morphology Polychromasia Hypochromasia Poikilocytosis Basophilic Stippling Anisocytosis Microcytosis Macrocytosis Spherocytes Sickle Cells Target Cells Tear Drop Cells Ovalocytes Stomatocytes Prather-Kinta Bodies [place] Cells Bite Cells Crenated Cell Acanthocytes (Spur) Rouleaux Schistocytes D-Dimer Quant (PE/DVT) Sodium Potassium Chloride Carbon Dioxide Anion Gap BUN Creatinine Estim Creat Clear Calc Est GFR (MDRD) Af Amer Est GFR (MDRD) Non-Af BUN/Creatinine Ratio Glucose Calcium Total Bilirubin AST ALT Alkaline Phosphatase Troponin I High Sens Total Protein Albumin Globulin Albumin/Globulin Ratio Radiography Chest X-Ray - ED: 1 View Diagnostic Testing: Clinical Impression(s) from Imaging Studies Chest X-Ray 12/09/22 16:35 IMPRESSION: No acute cardiopulmonary disease. Electronically Signed: Shane Perry MD at 17:02 EDT , 1 view chest x-ray obtained interpreted by myself no acute disease process as there was no evidence of infiltrate or pneumothorax. Official report from radiology pending. Discharge Plan Dx/Rx/DC Orders Clinical Impression: Exertional dyspnea, Dizziness, History of diabetes mellitus, History of hypertension Disposition Disposition: Acute Care [facility]
[2022-12-09] MEDS: Aspirin 81 MG TAB.CHEW 162 MG PO (16:17)
[2022-12-09 16:20] VITALS: BP 134/81; BP 142/92; BP 144/99; PULSE 88; PULSE 98
[2022-12-09 16:27] LABS: D-Dimer Quantitative (DVT/PE) 0.29 FEU/ug/m (0.27-0.49)
[2022-12-09 16:28] LABS: ALB/GLOB Ratio 1.1 RATIO (0.9-2.4); AST(SGOT) 16 U/L (15-37); Alanine Aminotransfer ALT/SGPT 27 U/L (16-61); Albumin, Serum 3.8 g/dL (3.2-5.0); Alkaline Phosphatase 70 U/L (45-117); Anion Gap 7 (5-15); BUN 11 mg/dL (7-18); BUN/Creat Ratio 10.8 RATIO (10-20); Calcium,Total 8.7 mg/dL (8.5-10.1); Chloride 107 mmol/L (98-107); Creatinine, Serum 1.02 mg/dL (0.70-1.30); EST Glomerular Filtration Rate 78 mL/min (>60); Est Glom Filt Rate - Afr Amer 94 mL/min (>60); Estimated Creatinine Clearance 89.78 ml/min; Globulin 3.6 g/dL (2.2-4.2); Glucose 137 mg/dL (74-106); Potassium 3.8 mmol/L (3.5-5.1); Protein, Total 7.4 g/dL (6.4-8.2); Sodium Level 141 mmol/L (136-145); Troponin-I HS 5 pg/mL (3.0-78.0)
[2022-12-09 16:35] LABS: Absolute Lymphocyte Count 1.87 X10^3/uL (0.83-4.51); Absolute Neutrophil Count 4.2 X10^3/uL (2.0-7.7); Basophil# 0.04 X10^3/uL; Basophil% 0.6 % (0-1); Eosinophils% 1.4 % (0-5); Hematocrit 43.6 % (40-54); Hemoglobin 14.5 g/dL (13.0-16.5); Lymphocyte # 1.87 X10^3/ul (0.83-4.51); Lymphocyte % 26.4 % (19-41); Mean Corp Hgb Conc 33.3 g/dL (32-36); Mean Corpuscular Hgb 29.9 pg (27.0-32.0); Mean Corpuscular Volume 89.9 fL (80-94); Mean Platelet Vol. 9.7 fl (6.2-12.0); Monocyte# 0.84 X10^3/uL; Monocyte% 11.8 % (0-10); NRBC Flagged by Analyzer 0 % (0-5); Neutrophil % 59.2 % (47-70); Platelet Count 223 K/mm3 (150-450); RBC Distribution Width CV 13.3 % (11.6-14.6); RBC Distribution Width SD 44.3 fl (35.1-43.9); Red Blood Count 4.85 M/mm3 (4.6-6.2); White Blood Count 7.1 K/mm3 (4.4-11.0)
--- NOTE | 2022-12-09 16:35 | RAD_ITS ---
INDICATION: Dyspnea EXAMINATION/TECHNIQUE: X-RAY - XR Chest 2 Views COMPARISON: May 25, 2022 chest x-ray. FINDINGS: LINES/DEVICES: None. LUNGS: No focal consolidation or pleural effusion. No pneumothorax. MEDIASTINUM AND CARDIOVASCULAR STRUCTURES: Cardiac silhouette not enlarged. Central airways and mediastinal contour are unremarkable. BONES AND SOFT TISSUES: Stable degenerative changes of the thoracic spine. RAD/Chest PA and Lateral IMPRESSION: No acute cardiopulmonary disease. Electronically Signed: Shane Perry MD at 17:02 EDT ,
[2022-12-09 17:59] VITALS: BP 152/92; PULSE 71; RESP 18; O2SAT 96
[2022-12-09 18:18] LABS: Troponin-I HS 6 pg/mL (3.0-78.0)
== END 2022-12-09 18:57 | disposition home or self-care (01) ==
PROVIDERS: Physician Assistant; Emergency Provider Emergency Medicine; PCP Family Medicine; Visit Provider Emergency Medicine
DX: R06.00 Dyspnea, unspecified (principal); E11.9 Type 2 diabetes mellitus without complications; R42 Dizziness and giddiness; E78.5 Hyperlipidemia, unspecified; I10 Essential (primary) hypertension; J45.909 Unspecified asthma, uncomplicated; Z79.899 Other long term (current) drug therapy; E03.9 Hypothyroidism, unspecified; Z79.84 Long term (current) use of oral hypoglycemic drugs
CPT/HCPCS: 71046; 80053; 84484; 85025; 85379; 93005; 99283; A4216

== ENCOUNTER → 2022-12-12 | Outpatient (CLI) | payer MEDICARE, OTHER, SELFPAY ==
--- NOTE | 2022-12-12 06:24 | ECHOCS_ITS ---
Version 2 Reason For Study: Dyspnea Procedure This was a 2D Doppler, Color Flow transthoracic echocardiogram. Contrast injection was performed. Exam performed in department. Left Ventricle Normal LV size. Left ventricular systolic function is normal. The estimated ejection fraction is 65 %. Stage 1 diastolic dysfunction. No regional wall motion abnormalities noted. Right Ventricle Normal RV size. Normal systolic function. Atria Normal left atrium. Normal right atrium. Hypermobile atrial septum. Aneurysmal atrial septum. Patent foramen ovale. Mitral Valve Normal mitral valve. Tricuspid Valve Normal tricuspid valve. Aortic Valve Normal aortic valve. Trisinus/trileaflet aortic valve. Pulmonic Valve Normal pulmonic valve. Great Vessels Normal aortic root. The pulmonary artery is normal size. Normal inferior vena cava. Pericardium/Pleural No pericardial effusion. Medication Diluted definity 4ml given slow IV push to enhance endocardial definition. Performed a rapid injection of agitated mix of 9 cc saline and 1cc air to assess for atrial septal defect. MMode/2D Measurements & Calculations LVIDd: 4.2 cm IVSd: 0.92 cm Ao root diam: 3.2 cm LVIDs: 2.5 cm LVPWd: 0.82 cm RVDd: 3.6 cm FS: 39.9 % LAV(MOD-bp): 42.5 ml LVAd ap4: 32.5 cm2 SV(MOD-sp4): 66.9 ml LAV(MOD-bp) Indexed: 16.6 ml/m2 LVLd ap4: 8.5 cm LAV(MOD-sp2): 34.8 ml EDV(MOD-sp4): 99.3 ml LAV(MOD-sp4): 45.5 ml EDV(sp4-el): 105.1 ml LVAs ap4: 16.3 cm2 LVLs ap4: 6.9 cm ESV(MOD-sp4): 32.4 ml ESV(sp4-el): 32.8 ml EF(MOD-sp4): 67.4 % EF(sp4-el): 68.8 % SV(sp4-el): 72.3 ml LA A4 area: 17.9 cm2 LA dimension(2D): 3.3 cm RA A4 area: 10.4 cm2 Time Measurements MV dec time: 0.15 sec Doppler Measurements & Calculations MV E max frank: 48.1 cm/sec Lat Peak E' Frank: 5.8 cm/sec Med Peak E' Frank: 7.4 cm/sec MV A max frank: 76.1 cm/sec E/E' lat: 8.3 E/E' med: 6.5 MV E/A: 0.63 MV dec slope: 324.2 cm/sec2 Ao V2 max: 126.0 cm/sec LV V1 max: 111.5 cm/sec Ao max P.4 mmHg LV V1 max P.0 mmHg Ao V2 mean: 98.0 cm/sec LV V1 mean P.4 mmHg Ao mean P.1 mmHg LV V1 mean: 89.6 cm/sec Ao V2 VTI: 23.1 cm LV V1 VTI: 22.1 cm AV (velocity ratio): 0.96 PA V2 max: 93.0 cm/sec ECHO/Echo Complete W/ Contrast Interpretation Summary Hypermobile atrial septum. Normal LV size. Left ventricular systolic function is normal. The estimated ejection fraction is 65 %. Stage 1 diastolic dysfunction. Aneurysmal atrial septum. Patent foramen ovale. Contrast injection was performed. Ordering Physician: Renu Key Referring Physician: Shane Contreras Performed By: Felicia Rutledge, KRISTIN, RVT
--- NOTE | 2022-12-12 17:20 | STRESSREP ---
Stress Test Report Exercise myocardial perfusion stress test. 67-year-old man with a history of dyspnea on exertion Stress protocol: Resting EKG demonstrates normal sinus rhythm with a rate of 88 bpm resting blood pressure is 120/70 mmHg. The patient exercised according to the regular Chirag protocol for a total duration of 7 minutes and 31 seconds attaining a maximum heart rate of 173 bpm which was 112% of maximum predicted heart rate; the maximum workload was 10.1 metabolic equivalents. At rest there were no ST or T wave changes noted to suggest ischemia and at peak exercise upsloping ST changes only were noted which did not meet the criteria for ischemia. Occasional premature ventricular complexes were noted during exercise. No clinical angina was noted the test was terminated due to the target heart rate being achieved/fatigue and shortness of breath. The peak blood pressure was 168/70 mmHg. Rate-pressure product was 25,200. Myocardial perfusion protocol. 14.9 mCi of technetium 99m sestamibi was injected at rest. The patient exercised according to regular Chirag protocol for total duration of 7 minutes and 31 seconds and at peak exercise 44.8 mCi of technetium 99m sestamibi was injected stress images were obtained stress and rest images were reconstructed in comparing the short axis vertical long and horizontal long axis. Gated images were also obtained. Perfusion SPECT analysis: Review of the stress images demonstrate normal uptake of tracer noted in all areas of the myocardium. The resting images similarly demonstrate normal uptake of tracer noted in all areas of the myocardium. No areas of reversibility are noted to suggest ischemia no previous infarct was noted. Gated SPECT analysis: The gated ejection fraction is 85%. Conclusion: Normal exercise myocardial perfusion stress test at a high workload Preserved ejection fraction.
== END | disposition home or self-care (01) ==
LOC: CVS 06:22
PROVIDERS: PCP Family Medicine; Visit Provider Family Medicine
DX: R06.09 Other forms of dyspnea (principal); R07.9 Chest pain, unspecified
CPT/HCPCS: 78452; 93017; 93306; A9500; Q9957; A4216; C8929

== ENCOUNTER → 2022-12-26 | Outpatient (CLI) | payer MEDICARE, OTHER, SELFPAY ==
[2022-12-26 12:28] LABS: Absolute Lymphocyte Count 1.23 X10^3/uL (0.83-4.51); Absolute Neutrophil Count 3.9 X10^3/uL (2.0-7.7); Basophil# 0.04 X10^3/uL; Basophil% 0.7 % (0-1); Eosinophil# 0.03 X10^3/uL; Eosinophils% 0.5 % (0-5); Hematocrit 49.7 % (40-54); Hemoglobin 16.1 g/dL (13.0-16.5); Lymphocyte # 1.23 X10^3/ul (0.83-4.51); Lymphocyte % 21.1 % (19-41); Mean Corp Hgb Conc 32.4 g/dL (32-36); Mean Corpuscular Hgb 29.9 pg (27.0-32.0); Mean Corpuscular Volume 92.2 fL (80-94); Mean Platelet Vol. 9.7 fl (6.2-12.0); Monocyte# 0.57 X10^3/uL; Monocyte% 9.8 % (0-10); NRBC Flagged by Analyzer 0 % (0-5); Neutrophil # 3.92 X10^3/uL (2.7-7.7); Neutrophil % 67.2 % (47-70); Platelet Count 239 K/mm3 (150-450); RBC Distribution Width CV 13.6 % (11.6-14.6); RBC Distribution Width SD 46.5 fl (35.1-43.9); Red Blood Count 5.39 M/mm3 (4.6-6.2); White Blood Count 5.8 K/mm3 (4.4-11.0)
[2022-12-26 13:17] LABS: Anion Gap 6 (5-15); BUN 13 mg/dL (7-18); BUN/Creat Ratio 12.9 RATIO (10-20); Calcium,Total 9.9 mg/dL (8.5-10.1); Chloride 100 mmol/L (98-107); Creatinine, Serum 1.01 mg/dL (0.70-1.30); EST Glomerular Filtration Rate 79 mL/min (>60); Est Glom Filt Rate - Afr Amer 95 mL/min (>60); Free T3 3.2 pg/mL (2.18-3.98); Glucose 109 mg/dL (74-106); Magnesium 1.8 mg/dL (1.6-2.6); Potassium 4.1 mmol/L (3.5-5.1); Sodium Level 135 mmol/L (136-145); T4 Free Direct 1.19 ng/dL (0.76-1.46); Thyroid Stim Hormone (TSH) 1.58 uIU/mL (0.358-3.74)
== END | disposition home or self-care (01) ==
LOC: MFPLAB 10:23
PROVIDERS: PCP Family Medicine; Visit Provider Family Medicine
DX: E03.9 Hypothyroidism, unspecified (principal); R42 Dizziness and giddiness
CPT/HCPCS: 36415; 80048; 83735; 84439; 84443; 84481; 85025

== ENCOUNTER → 2022-12-27 | Outpatient (CLI) | payer MEDICARE, OTHER, SELFPAY ==
--- NOTE | 2022-12-27 07:47 | CDU_ITS ---
Reason For Study: dizziness Rt. Velocities/BP Lt. Velocities/BP Prox CCA 110.2/26.7 cm/sec. Prox CCA 104.7/23.7 cm/sec. Mid CCA 108.4/23.7 cm/sec. Mid CCA 110.9/22.5 cm/sec. Dist CCA 112.1/24.9 cm/sec. Dist CCA 109.7/26.2 cm/sec. Prox ICA 108.4/21.2 cm/sec. Prox ICA 37.7/10.2 cm/sec. Mid ICA 42.1/13.9 cm/sec. Mid ICA 46.5/15.7 cm/sec. Dist ICA 76.5/29.8 cm/sec. Dist ICA 66.3/24.5 cm/sec. Rt. ICA/CCA = 1.0. Lt. ICA/CCA = .6. Prox ECA 64.2/12.6 cm/sec. Prox ECA 82.6/21.2 cm/sec. Rt. Vert. 50.7/12.6 cm/sec. Lt. Vert. 37.7/10.2 cm/sec. Right Extracranial There is intimal thickening but no significant atherosclerotic plaque noted in the right common carotid artery. There is intimal thickening but no significant atherosclerotic plaque noted in the right internal carotid artery. There is intimal thickening but no significant atherosclerotic plaque noted in the right external carotid artery. Antegrade flow is noted in the right vertebral artery. Left Extracranial There is intimal thickening but no significant atherosclerotic plaque noted in the left common carotid artery. There is intimal thickening but no significant atherosclerotic plaque noted in the left internal carotid artery. There is intimal thickening but no significant atherosclerotic plaque noted in the left external carotid artery. Antegrade flow is noted in the left vertebral artery. Procedure Carotid Duplex 15711. This is a Carotid Duplex examination using B-mode, color flow and specral Doppler. The exam was diagnostic. Exam performed in department. VL/Carotid Duplex Ultrasound Interpretation Summary Intimal thickening at the proximal right internal carotid artery with less than 50% stenosis Less than 50% stenosis right external carotid artery Intimal thickening at the proximal left internal carotid artery with less than 50% stenosis Less than 50% stenosis left external carotid artery Widely patent and antegrade vertebral arteries bilaterally Ordering Physician: Shane Contreras Referring Physician: Shane Contreras Performed By: Efren Venegas RVT
[2023-01-11 06:22] LABS: Bedside Glucose 107 mg/dL (74-106)
== END | disposition home or self-care (01) ==
PROVIDERS: PCP Family Medicine; Referring Provider Family Medicine; Visit Provider Family Medicine
DX: R42 Dizziness and giddiness (principal)
CPT/HCPCS: 82962; 93880

== ENCOUNTER 2023-05-09 19:00 | Inpatient (IN) | payer MEDICARE, OTHER, SELFPAY ==
[2023-05-09 19:01] VITALS: BP 154/89; PULSE 102; RESP 18; TEMP 35.5; O2SAT 95; BMI 32.0
--- NOTE | 2023-05-09 19:27 | CT_ITS ---
EXAM: CT ABDOMEN AND PELVIS WITH INTRAVENOUS CONTRAST CLINICAL INDICATION: llq pain TECHNIQUE: Helically acquired images were obtained of the abdomen and pelvis with intravenous contrast. This CT exam was performed using one or more of the following dose reduction techniques: automated exposure control, adjustment of the mA and/or kV according to patient size, and/or use of iterative reconstruction technique. CONTRAST: IV 100mL Isovue-300 COMPARISON: 08/31/2021. FINDINGS: LOWER THORAX: No significant abnormality. Lung bases are clear. No cardiomegaly. No significant pericardial effusion. ABDOMEN: LIVER: No significant abnormality. Homogeneous. No focal mass. GALLBLADDER AND BILE DUCTS: No significant abnormality. No calcified gallstones. No gallbladder distention or wall edema. No intra- or extrahepatic biliary ductal dilation. PANCREAS: No significant abnormality. No focal cystic or solid mass. SPLEEN: No significant abnormality. Normal size without focal cystic or solid mass. ADRENALS: No significant abnormality. No nodules. KIDNEYS AND URETERS: No significant abnormality. Normal renal size and position. No hydronephrosis. STOMACH AND BOWEL: Multiple colonic diverticula. Wall thickening of the descending colon and adjacent inflammatory changes. No perforation or abscess. Circumscribed lobule fat adjacent to the hepatic flexure, likely an epiploic appendage although without significant inflammation. There is a colon-containing left inguinal hernia without evidence of incarceration or strangulation. PELVIS: APPENDIX: No evidence of acute appendicitis. BLADDER: No significant abnormality. REPRODUCTIVE: Normal as visualized. No mass. ABDOMEN and PELVIS: INTRAPERITONEAL SPACE: Mild central mesenteric inflammation. No free air or free fluid. No abscess. BONES/JOINTS: Degenerative changes in the spine. Mild to moderate multilevel lumbar spinal canal stenosis and moderate to severe multilevel lumbar neural foraminal narrowing. No suspicious lytic or blastic abnormality. SOFT TISSUES: Left inguinal hernia and small fat-containing umbilical hernia.. VASCULATURE: No significant abnormality. Abdominal aorta is non-dilated. 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 CT/Abdomen/Pelvis W IV Cont ONLY IMPRESSION: 1. Uncomplicated acute descending colonic diverticulitis. 2. 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 3. There is a colon-containing left inguinal hernia without evidence of incarceration or strangulation. Electronically Signed: Torsten Savage DO at 20:56 EDT ,
--- NOTE | 2023-05-09 19:29 | ED.VIS.GI ---
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 He relates history that about a month ago he was seen by a surgeon for a left inguinal hernia that he is going to have elective surgery on. Additionally, he had come down with her upper respiratory infection and was placed on doxycycline. He completed that course of therapy. Over the last 2 to 3 days he has had left lower quadrant to mid abdominal pain on the left side. No exacerbating or alleviating factors. No fevers or chills. No nausea or vomiting. Today had a bowel movement and had bright red blood in the toilet. Who presents for evaluation. His inguinal hernias on the left and he denies any firmness to that area, erythema, or other symptoms. No chest pain, dizziness, or lightheadedness. [facility] Medical History Asthma COVID-19 COVID-19 Essential hypertension Exposure to COVID-19 virus GERD (gastroesophageal reflux disease) History of skin cancer Hypothyroidism Lower GI bleeding LUKE on CPAP Tachycardia Type 2 diabetes mellitus without complication Home Medications montelukast 10 mg tablet 10 mg PO DAILY 03/21/21 [History Last Taken 12/08/22] cholecalciferol (vitamin D3) 50 mcg (2,000 unit) tablet (Vitamin D3) 2,000 unit PO DAILY 09/15/21 [History Last Taken 12/08/22] metformin 500 mg tablet 500 mg PO DAILY 09/15/21 [History Last Taken 12/08/22] albuterol sulfate 90 mcg/actuation aerosol inhaler 2 puff inhalation Q6H PRN . 06/13/22 [History Last Taken 1 Week Ago ~12/02/22] tamsulosin 0.4 mg capsule 0.4 mg PO DAILY 06/13/22 [History Last Taken 12/07/22] multivitamin 1 tab PO DAILY SUPPLEMENT 12/09/22 [History Last Taken 12/09/22] omeprazole 40 mg capsule,delayed release 40 mg PO DAILY GERD 12/09/22 [History Last Taken 12/09/22] oxymetazoline 0.05 % nasal spray (Afrin (oxymetazoline)) 2 spray intranasal Q12H . 12/09/22 [History Last Taken 12/08/22] rosuvastatin 5 mg tablet 5 mg PO QHS CHOLESTEROL 12/09/22 [History Last Taken 12/08/22] zinc acetate 25 mg (zinc) capsule 30 mg PO DAILY SUPPLEMENT 12/09/22 [History Last Taken 12/08/22] aspirin 81 mg tablet,delayed release (Adult Low Dose Aspirin) 81 mg PO DAILY 12/17/22 [History Last Taken Unknown] levothyroxine 50 mcg tablet 50 mcg PO DAILY 12/17/22 [History Last Taken Unknown] losartan 100 mg tablet 100 mg PO DAILY #90 tabs 12/23/22 [Rx Last Taken Unknown] guaifenesin 600 mg tablet, extended release 12 hr 600 mg PO BID 05/09/23 [History Last Taken Unknown] mecobalamin (vitamin B12) 500 mcg chewable tablet 500 mcg PO DAILY 05/09/23 [History Last Taken Unknown] triamcinolone acetonide 55 mcg nasal spray aerosol (Nasacort) 2 spray intranasal DAILY 05/09/23 [History Last Taken Unknown] Allergy/AdvReac Type Severity Reaction Status Date / Time amoxicillin trihydrate Allergy Rash Verified 05/09/23 19:02 [From Augmentin] potassium clavulanate Allergy Rash Verified 05/09/23 19:02 [From Augmentin] Family History Mother Breast cancer Father Heart disease Cancer Kidney Surgical History H/O hernia repair History of drainage of abscess Social History Smoking Status: Never smoker alcohol intake: never substance use type: does not use caffeine: No (Over the last 3 weeks) ROS ROS ED ROS Narrative Constitutional: No fever, no chills. HEENT: No sore throat. No neck pain. No loss of vision. No rhinorrhea. Cardiovascular: No chest pain. No palpitations. No pedal edema. Respiratory: No cough, no shortness of breath. Abdominal: Left mid to left lower quadrant abdominal pain. No nausea. No vomiting. No diarrhea. Positive bright red blood per rectum. Genitourinary: No dysuria. No hematuria. Musculoskeletal: No myalgias. No arthralgias. Neurologic: No headaches. No dizziness. No lightheadedness. Skin: No rash. No change in color. Psychiatric: No depression. No anxiety. EXAM Physical Exam Narrative Exam Narrative: Afebrile. Vital signs noted. HEENT: Normocephalic. Atraumatic. PERRL, EOMI. Neck soft and supple. No point tenderness or step off. Cardiovascular: Regular rate and rhythm. No murmurs, rubs, or gallops appreciated. Respiratory: No tachypnea. Lungs clear to auscultation bilaterally. Gastrointestinal: Abdomen soft, mild tenderness to palpation left mid to left lower quadrant, with normoactive bowel sounds. Left inguinal hernia noted without incarceration, no firmness or erythema. Reducible but returns immediately. No rebound or guarding. Neurological: Awake. Alert. Nonfocal, nonlateralizing. Skin: No rash. Normal color. No pallor. Musculoskeletal: No pedal edema. Full range of motion extremities. Const Vital Signs: 05/09/23 19:01 05/09/23 20:33 Temperature 96 F L Temperature Source Temporal Pulse Rate 102 H Pulse Rate [Lying] 80 Pulse Rate [Sitting (for 1 minute prior to obtaining)] 91 Pulse Rate [Standing (for 1 minute prior to obtaining)] 95 Respiratory Rate 18 Blood Pressure 154/89 H Blood Pressure [Lying] 157/104 H Blood Pressure [Sitting (for 1 minute prior to obtaining)] 145/105 H Blood Pressure [Standing (for 1 minute prior to obtaining)] 149/91 H Blood Pressure Mean 110 Blood Pressure Mean [Lying] 121 Blood Pressure Mean [Sitting (for 1 minute prior to obtaining)] 118 Blood Pressure Mean [Standing (for 1 minute prior to obtaining)] 110 Pulse Ox 95 Oxygen Delivery Method Room Air MDM MDM MDM Narrative Medical decision making narrative: Given his bright red blood per rectum, concern is for diverticulitis with diverticular bleed versus AV malformation versus internal hemorrhoid. I have lower concern for incarcerated hernia. Although he is on antibiotics, C. difficile is lower on the differential as he is not having diarrhea and is having more formed stool. CBC, CMP will be obtained along with CT imaging. Orthostatics will also be obtained. Orthostatics were reviewed and they were negative. I reviewed his laboratory work from today and WBC count normal at 10.3, hemoglobin normal at 14.7, platelet count normal at 329. Review of his CMP, sodium is 142, potassium normal at 3.6, chloride 106, BUN of 11 and creatinine 0.88, I have low suspicion for upper GI bleeding that is brisk. Glucose is slightly elevated at 117 but he has a normal anion gap of 7 so I am not concerned about HON K or diabetic ketoacidosis. I reviewed the CT report of the abdomen and pelvis with IV contrast which is consistent with descending colonic diverticulitis, without evidence of perforation or abscess. Patient was started on ciprofloxacin and Flagyl as he has a rash from amoxicillin. He did have another bloody bowel movement here in the emergency department. Patient's ex- states that he lives alone, given his continued suspected diverticular bleeding and diverticulitis, I discussed patient with Dr. Fox who will place him on observation. Patient is in stable condition. History & Record Review Discussion w/independent historian: Patient Additional record(s) reviewed:: Prior ED visit Lab Data Attestation: I reviewed the patient's lab results. Labs: Laboratory Results - last 24 hr 05/09/23 19:27 WBC 10.3 RBC 5.04 Hgb 14.7 Hct 44.5 MCV 88.3 MCH 29.2 MCHC 33.0 RDW Std Deviation 45.1 H RDW Coeff of Kam 14.0 Plt Count 329 MPV 9.2 Immature Gran % (Auto) 0.400 Neut % (Auto) 73.6 H Lymph % (Auto) 15.6 L [place] % (Auto) 9.5 Eos % (Auto) 0.6 Baso % (Auto) 0.3 Absolute Neuts (auto) 7.6 Absolute Lymphs (auto) 1.61 Nucleated RBC % 0 Sodium 142 Potassium 3.6 Chloride 106 Carbon Dioxide 29.0 Anion Gap 7 BUN 11 Creatinine 0.88 Estim Creat Clear Calc 104.06 Est GFR (MDRD) Af Amer 111 Est GFR (MDRD) Non-Af 92 BUN/Creatinine Ratio 12.5 Glucose 117 H Calcium 9.1 Total Bilirubin 1.20 H AST 13 L ALT 26 Alkaline Phosphatase 52 Total Protein 7.3 Albumin 3.7 Globulin 3.6 Albumin/Globulin Ratio 1.0 Radiography Diagnostic Testing: Clinical Impression(s) from Imaging Studies Abdomen/Pelvis CT 05/09/23 19:27 IMPRESSION: 1. Uncomplicated acute descending colonic diverticulitis. 2. 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 3. There is a colon-containing left inguinal hernia without evidence of incarceration or strangulation. Electronically Signed: Torsten Savage DO at 20:56 EDT , Management Discussion w/another healthcare provider: Hospitalist Discharge Plan Triage Chief Complaint: GI Bleed ED Provider: Calvin Guzman Dx/Rx/DC Orders Primary Care Provider: Shane Contreras
[2023-05-09] MEDS: 0.9% Normal Saline (1000mL) 1,000 ML 1000 ML IV (19:34)
[2023-05-09 19:41] LABS: Absolute Lymphocyte Count 1.61 X10^3/uL (0.83-4.51); Absolute Neutrophil Count 7.6 X10^3/uL (2.0-7.7); Basophil# 0.03 X10^3/uL; Basophil% 0.3 % (0-1); Eosinophil# 0.06 X10^3/uL; Eosinophils% 0.6 % (0-5); Hematocrit 44.5 % (40-54); Hemoglobin 14.7 g/dL (13.0-16.5); Lymphocyte # 1.61 X10^3/ul (0.83-4.51); Lymphocyte % 15.6 % (19-41); Mean Corpuscular Hgb 29.2 pg (27.0-32.0); Mean Corpuscular Volume 88.3 fL (80-94); Mean Platelet Vol. 9.2 fl (6.2-12.0); Monocyte# 0.98 X10^3/uL; Monocyte% 9.5 % (0-10); NRBC Flagged by Analyzer 0 % (0-5); Neutrophil # 7.59 X10^3/uL (2.7-7.7); Neutrophil % 73.6 % (47-70); Platelet Count 329 K/mm3 (150-450); RBC Distribution Width SD 45.1 fl (35.1-43.9); Red Blood Count 5.04 M/mm3 (4.6-6.2); White Blood Count 10.3 K/mm3 (4.4-11.0)
[2023-05-09 19:53] LABS: AST(SGOT) 13 U/L (15-37); Alanine Aminotransfer ALT/SGPT 26 U/L (16-61); Albumin, Serum 3.7 g/dL (3.2-5.0); Alkaline Phosphatase 52 U/L (45-117); Anion Gap 7 (5-15); BUN 11 mg/dL (7-18); BUN/Creat Ratio 12.5 RATIO (10-20); Calcium,Total 9.1 mg/dL (8.5-10.1); Chloride 106 mmol/L (98-107); Creatinine, Serum 0.88 mg/dL (0.70-1.30); EST Glomerular Filtration Rate 92 mL/min (>60); Est Glom Filt Rate - Afr Amer 111 mL/min (>60); Estimated Creatinine Clearance 104.06 ml/min; Globulin 3.6 g/dL (2.2-4.2); Glucose 117 mg/dL (74-106); Potassium 3.6 mmol/L (3.5-5.1); Protein, Total 7.3 g/dL (6.4-8.2); Sodium Level 142 mmol/L (136-145)
[2023-05-09 20:33] VITALS: BP 145/105; BP 149/91; BP 157/104; PULSE 80; PULSE 91; PULSE 95
[2023-05-09] MEDS: Ciprofloxacin 400 MG/200 ML BAG 200 MG IV (21:36)
[2023-05-09 21:39] VITALS: BP 134/86; PULSE 86; RESP 14; TEMP 37.4; O2SAT 92
--- NOTE | 2023-05-09 21:40 | ED.RN ---
not able to get urine sample at this time. large amount of bright red blood in toilet
--- NOTE | 2023-05-09 21:42 | PCM.HP.STD ---
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 At home patient had a large bright red blood per rectum. At the emergency department before patient was seen by hospitalist patient had additional 2 bright red blood per rectum. He described the stool as pure blood with blood clots.. Patient reports that 3 days before presentation he had left lower quadrant pain but he attributed it to his history of inguinal hernia. Patient denies any nausea and vomiting. At the emergency department patient had a low-grade fever. Of note patient reports that 1 to 2 weeks ago he had an episode of upper respiratory infection and took doxycycline and is wondering whether he might have had C. difficile. [facility] Medical History Asthma COVID-19 COVID-19 Essential hypertension Exposure to COVID-19 virus GERD (gastroesophageal reflux disease) History of skin cancer Hypothyroidism Lower GI bleeding LUKE on CPAP Tachycardia Type 2 diabetes mellitus without complication Home Medications montelukast 10 mg tablet 10 mg PO DAILY 03/21/21 [History Last Taken 12/08/22] cholecalciferol (vitamin D3) 50 mcg (2,000 unit) tablet (Vitamin D3) 2,000 unit PO DAILY 09/15/21 [History Last Taken 12/08/22] metformin 500 mg tablet 500 mg PO DAILY 09/15/21 [History Last Taken 12/08/22] albuterol sulfate 90 mcg/actuation aerosol inhaler 2 puff inhalation Q6H PRN . 06/13/22 [History Last Taken 1 Week Ago ~12/02/22] tamsulosin 0.4 mg capsule 0.4 mg PO DAILY 06/13/22 [History Last Taken 12/07/22] multivitamin 1 tab PO DAILY SUPPLEMENT 12/09/22 [History Last Taken 12/09/22] omeprazole 40 mg capsule,delayed release 40 mg PO DAILY GERD 12/09/22 [History Last Taken 12/09/22] oxymetazoline 0.05 % nasal spray (Afrin (oxymetazoline)) 2 spray intranasal Q12H . 12/09/22 [History Last Taken 12/08/22] rosuvastatin 5 mg tablet 5 mg PO QHS CHOLESTEROL 12/09/22 [History Last Taken 12/08/22] zinc acetate 25 mg (zinc) capsule 30 mg PO DAILY SUPPLEMENT 12/09/22 [History Last Taken 12/08/22] aspirin 81 mg tablet,delayed release (Adult Low Dose Aspirin) 81 mg PO DAILY 12/17/22 [History Last Taken Unknown] levothyroxine 50 mcg tablet 50 mcg PO DAILY 12/17/22 [History Last Taken Unknown] losartan 100 mg tablet 100 mg PO DAILY #90 tabs 12/23/22 [Rx Last Taken Unknown] guaifenesin 600 mg tablet, extended release 12 hr 600 mg PO BID 05/09/23 [History Last Taken Unknown] mecobalamin (vitamin B12) 500 mcg chewable tablet 500 mcg PO DAILY 05/09/23 [History Last Taken Unknown] triamcinolone acetonide 55 mcg nasal spray aerosol (Nasacort) 2 spray intranasal DAILY 05/09/23 [History Last Taken Unknown] Allergy/AdvReac Type Severity Reaction Status Date / Time amoxicillin trihydrate Allergy Rash Verified 05/09/23 19:02 [From Augmentin] potassium clavulanate Allergy Rash Verified 05/09/23 19:02 [From Augmentin] Family History Mother Breast cancer Father Heart disease Cancer Kidney Surgical History H/O hernia repair History of drainage of abscess Social History Smoking Status: Never smoker alcohol intake: never substance use type: does not use caffeine: No (Over the last 3 weeks) ROS ROS Narrative Pertinent positives and pertinent negatives as noted in HPI. All other systems were reviewed and are negative Vital Signs Vital Signs Vital Signs: 05/09/23 19:01 05/09/23 20:33 05/09/23 21:39 Temperature 96 F L 99.3 F H Temperature Source Temporal Pulse Rate 102 H 86 Pulse Rate [Lying] 80 Pulse Rate [Sitting (for 1 minute prior to obtaining)] 91 Pulse Rate [Standing (for 1 minute prior to obtaining)] 95 Respiratory Rate 18 14 Blood Pressure 154/89 H 134/86 H Blood Pressure [Lying] 157/104 H Blood Pressure [Sitting (for 1 minute prior to obtaining)] 145/105 H Blood Pressure [Standing (for 1 minute prior to obtaining)] 149/91 H Blood Pressure Mean 110 102 Blood Pressure Mean [Lying] 121 Blood Pressure Mean [Sitting (for 1 minute prior to obtaining)] 118 Blood Pressure Mean [Standing (for 1 minute prior to obtaining)] 110 Pulse Ox 95 92 Oxygen Delivery Method Room Air Weight Weight: 122.47 kg Body Mass Index (BMI) 32.0 Physical Exam Narrative Physical exam: General: Well-nourished, well-developed. Head: Normocephalic, atraumatic, no tenderness Eyes: Vision is grossly intact. EOMI ENT, no trauma, moist mucous membranes, no rhinorrhea Neck: Nontender, No thyromegaly. CVS: Regular rate and rhythm. S1-S2 present. No murmur, gallop or rub. Respiratory : clear to auscultation bilaterally, chest wall nontender Abdomen: Soft, nontender, nondistended, normal bowel sounds, no masses : Deferred Back: Nontender, no CVA tenderness Extremities: Nontender full range of motion, no trauma Skin: Normal color, no trauma, abrasions Neuro: Alert, oriented, cranial nerves II through XII grossly intact. Psychiatry: Normal mood. Normal affect. Not depressed. Not anxious. Results Lab / Micro Data 05/09/23 19:27 05/09/23 19:27 Labs: Laboratory Results - last 24 hr 05/09/23 19:27: WBC 10.3, RBC 5.04, Hgb 14.7, Hct 44.5, MCV 88.3, MCH 29.2, MCHC 33.0, RDW Std Deviation 45.1 H, RDW Coeff of Kam 14.0, Plt Count 329, MPV 9.2, Immature Gran % (Auto) 0.400, Neut % (Auto) 73.6 H, Lymph % (Auto) 15.6 L, [place] % (Auto) 9.5, Eos % (Auto) 0.6, Baso % (Auto) 0.3, Absolute Neuts (auto) 7.6, Absolute Lymphs (auto) 1.61, Nucleated RBC % 0, Sodium 142, Potassium 3.6, Chloride 106, Carbon Dioxide 29.0, Anion Gap 7, BUN 11, Creatinine 0.88, Estim Creat Clear Calc 104.06, Est GFR (MDRD) Af Amer 111, Est GFR (MDRD) Non-Af 92, BUN/Creatinine Ratio 12.5, Glucose 117 H, Calcium 9.1, Total Bilirubin 1.20 H, AST 13 L, ALT 26, Alkaline Phosphatase 52, Total Protein 7.3, Albumin 3.7, Globulin 3.6, Albumin/Globulin Ratio 1.0 Radiology Impression Abdomen/Pelvis CT 05/09/23 19:27 IMPRESSION: 1. Uncomplicated acute descending colonic diverticulitis. 2. 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 3. There is a colon-containing left inguinal hernia without evidence of incarceration or strangulation. Electronically Signed: Torsten Savage DO at 20:56 EDT , Assessment & Plan Assessment/Plan (1) Diverticulosis: (2) Diverticular hemorrhage: (3) Acute diverticulitis: (4) Type 2 diabetes mellitus without complication: QUALIFIERS: Diabetes mellitus shelter insulin use: without termite treater use Qualified Code(s): E11.9 - Type 2 diabetes mellitus without complications (5) Essential hypertension: PLAN: Plan Diverticulitis with diverticular bleed Impression of abdomen/pelvis CT by radiologist: Uncomplicated acute descending colonic diverticulitis. 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 There is a colon continued left inguinal hernia without evidence of incarceration or strangulation. Actual abdomen/pelvis CT was independently interpreted by myself: Agrees with the interpretation Patient with low-grade fever at the hospital. White count is normal. Trend CBC. Started on ciprofloxacin and Flagyl in the emergency department and continued. Will trend H&H. We will keep patient n.p.o. after midnight just in case his bleeding does not stop and he needs any intervention. Type and cross and hold 2 units of blood. Diabetes mellitus Blood glucose is stable. Hold home metformin in the hospital setting. Accu-Chek with correction scale insulin ordered. Hypertension Blood pressure is not within goal Home blood pressure medication continued. As needed hydralazine ordered. Trend blood pressure and adjust blood pressure medications. Time spent in the patient's overall evaluation,decision-making process, review of diagnostic data, adjustment of management, discussion with other providers, nursing and ancillary staff involved in patient's care documentation, 70 minutes. Charges/Coding Visit Charges Inpatient E&M: 73379 Init Hosp L3
[2023-05-09 22:41] VITALS: BMI 31.4
[2023-05-09 23:04] VITALS: BP 136/83; PULSE 82; RESP 18; TEMP 36.5; O2SAT 94
[2023-05-09] MEDS: 0.9% Normal Saline (1000mL) 1,000 ML 75 ML IV (23:33)
[2023-05-09] MEDS: metroNIDAZOLE 500 MG/100 ML BAG 100 MG IV (23:52)
[2023-05-10] VITALS (7 sets, daily range): BP systolic 109–125; BP diastolic 65–84; PULSE 66–82; RESP 18; TEMP 36.4–37.1; O2SAT 90–98
[2023-05-10 00:13] LABS: Bedside Glucose 126 mg/dL (74-106)
[2023-05-10] MEDS: 0.9% Normal Saline (1000mL) 1,000 ML 999 ML IV (00:20)
[2023-05-10 00:38] LABS: Hematocrit 38.1 % (40-54); Hemoglobin 12.2 g/dL (13.0-16.5)
[2023-05-10] MEDS: VIAFLEX IV ×3 (06:22→23:27)
[2023-05-10] MEDS: METRONIDAZOLE IV ×3 (06:22→23:27)
[2023-05-10 06:42] LABS: Bedside Glucose 109 mg/dL (74-106)
[2023-05-10 07:47] LABS: Absolute Lymphocyte Count 1.29 X10^3/uL (0.83-4.51); Absolute Neutrophil Count 5.9 X10^3/uL (2.0-7.7); Basophil# 0.04 X10^3/uL; Basophil% 0.5 % (0-1); Eosinophil# 0.06 X10^3/uL; Eosinophils% 0.7 % (0-5); Hematocrit 36.8 % (40-54); Hemoglobin 11.5 g/dL (13.0-16.5); Lymphocyte # 1.29 X10^3/ul (0.83-4.51); Lymphocyte % 15.8 % (19-41); Mean Corp Hgb Conc 31.3 g/dL (32-36); Mean Corpuscular Hgb 28.9 pg (27.0-32.0); Mean Corpuscular Volume 92.5 fL (80-94); Mean Platelet Vol. 9.4 fl (6.2-12.0); Monocyte# 0.81 X10^3/uL; NRBC Flagged by Analyzer 0 % (0-5); Neutrophil # 5.87 X10^3/uL (2.7-7.7); Neutrophil % 72.1 % (47-70); Platelet Count 256 K/mm3 (150-450); RBC Distribution Width CV 13.9 % (11.6-14.6); RBC Distribution Width SD 47.8 fl (35.1-43.9); Red Blood Count 3.98 M/mm3 (4.6-6.2); White Blood Count 8.1 K/mm3 (4.4-11.0)
--- NOTE | 2023-05-10 07:54 | PN.HOSP_ITS ---
Reason for Visit Reason for Visit: Diagnoses Type 2 diabetes mellitus without complications (05/09/23) Essential (primary) hypertension (05/09/23) Diverticulosis of large intestine without perforation or abscess with bleeding (05/09/23) Diverticulosis of intestine, part unspecified, without perforation or abscess without bleeding (05/09/23) Diverticulitis of intestine, part unspecified, without perforation or abscess without bleeding (05/09/23) Subjective Subjective Had copious bloody stools, but this AM had greatly improved. It was bloody, but less prominent. Objective Data Objective Data Vital Signs: Vital Signs Temp Pulse Resp BP Pulse Ox O2 Del Method 36.6 C 73 18 109/79 98 Room Air 05/10/23 04:37 05/10/23 04:37 05/10/23 04:37 05/10/23 04:37 05/10/23 04:37 05/10/23 04:37 Oxygen Delivery Method Room Air Weight: 120.2 kg Body Mass Index (BMI) 31.4 Intake & Output: Intake and Output for Last 24 Hours 05/08/23 05/09/23 05/10/23 23:59 23:59 23:59 Intake Total 1000 / 1600 1821.25 / 1821.25 Balance 1000 / 1600 1821.25 / 1821.25 Lab / Micro Data 05/10/23 12:05 05/10/23 07:10 Labs: Laboratory Results - last 24 hr 05/09/23 19:15: Blood Type O POSITIVE, Antibody Screen NEGATIVE, Crossmatch See Detail 05/09/23 19:27: WBC 10.3, RBC 5.04, Hgb 14.7, Hct 44.5, MCV 88.3, MCH 29.2, MCHC 33.0, RDW Std Deviation 45.1 H, RDW Coeff of Kam 14.0, Plt Count 329, MPV 9.2, Immature Gran % (Auto) 0.400, Neut % (Auto) 73.6 H, Lymph % (Auto) 15.6 L, [place] % (Auto) 9.5, Eos % (Auto) 0.6, Baso % (Auto) 0.3, Absolute Neuts (auto) 7.6, Absolute Lymphs (auto) 1.61, Nucleated RBC % 0, Sodium 142, Potassium 3.6, Chloride 106, Carbon Dioxide 29.0, Anion Gap 7, BUN 11, Creatinine 0.88, Estim Creat Clear Calc 104.06, Est GFR (MDRD) Af Amer 111, Est GFR (MDRD) Non-Af 92, BUN/Creatinine Ratio 12.5, Glucose 117 H, Calcium 9.1, Total Bilirubin 1.20 H, AST 13 L, ALT 26, Alkaline Phosphatase 52, Total Protein 7.3, Albumin 3.7, Globulin 3.6, Albumin/Globulin Ratio 1.0 05/09/23 23:50: POC Glucose 126 H 05/10/23 00:29: Hgb 12.2 L, Hct 38.1 L 05/10/23 06:21: POC Glucose 109 H 05/10/23 07:10: WBC 8.1, RBC 3.98 L, Hgb 11.5 L, Hct 36.8 L, MCV 92.5, MCH 28.9, MCHC 31.3 L D, RDW Std Deviation 47.8 H, RDW Coeff of Kam 13.9, Plt Count 256, MPV 9.4, Immature Gran % (Auto) 0.900, Neut % (Auto) 72.1 H, Lymph % (Auto) 15.8 L, [place] % (Auto) 10.0, Eos % (Auto) 0.7, Baso % (Auto) 0.5, Absolute Neuts (auto) 5.9, Absolute Lymphs (auto) 1.29, Nucleated RBC % 0 Micro: Microbiology 05/09/23 20:33 Stool C. difficile DNA Amplification - Final Radiography Diagnostic Testing: Radiology Impression Abdomen/Pelvis CT 05/09/23 19:27 IMPRESSION: 1. Uncomplicated acute descending colonic diverticulitis. 2. 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 3. There is a colon-containing left inguinal hernia without evidence of incarceration or strangulation. Electronically Signed: Torsten Savage DO at 20:56 EDT , Physical Exam Const alert and no apparent distress HEENT head/scalp atraumatic and moist oral mucous membranes Resp normal respiratory effort, no retractions, no use of accessory muscles and clear to auscultation bilaterally Cardio regular rate, regular rhythm, S1 normal heart sound and S2 normal heart sound GI normal to inspection, nondistended, normoactive bowel sounds, soft to palpation, non-tender and non-distended Extremity normal to inspection and full ROM Assessment & Plan Assessment/Plan (1) Acute diverticulitis: PLAN: CT showed acute uncomplicated acute descenting colonic diverticulitis Cipro and metronidazole (2) Diverticular hemorrhage: PLAN: seems to be improving. 2/2 diverticulosis Consider bleeding scan if worsens again. GI consult (3) Acute blood loss anemia: PLAN: H/H dropped from 14.7 to 11.4 Monitor No need for TF at this time. PLAN: Plan Chronic conditions: * Diabetes mellitus Blood glucose is stable. Hold home metformin in the hospital setting. Can hold on accucheck for now given stability. * Hypertension Stable. Home blood pressure medication continued. Losartan * BPH: tamsulosin * hypothyroidism: levothyroxine VTE prophylaxis: SCDs. Charges/Coding Visit Charges Inpatient E&M: 98649 Subs Hosp L2
[2023-05-10 08:38] LABS: ALB/GLOB Ratio 0.8 RATIO (0.9-2.4); AST(SGOT) 7 U/L (15-37); Alanine Aminotransfer ALT/SGPT 18 U/L (16-61); Albumin, Serum 2.8 g/dL (3.2-5.0); Alkaline Phosphatase 41 U/L (45-117); Anion Gap 5 (5-15); BUN 11 mg/dL (7-18); BUN/Creat Ratio 14.4 RATIO (10-20); Calcium,Total 8.2 mg/dL (8.5-10.1); Chloride 107 mmol/L (98-107); Creatinine, Serum 0.76 mg/dL (0.70-1.30); EST Glomerular Filtration Rate 109 mL/min (>60); Est Glom Filt Rate - Afr Amer 131 mL/min (>60); Estimated Creatinine Clearance 91.58 ml/min; Globulin 3.4 g/dL (2.2-4.2); Glucose 118 mg/dL (74-106); Potassium 3.9 mmol/L (3.5-5.1); Protein, Total 6.2 g/dL (6.4-8.2); Sodium Level 138 mmol/L (136-145)
[2023-05-10] MEDS: Multivitamins,Therapeutic Tablet 1 TABLET PO (10:09)
[2023-05-10] MEDS: Ciprofloxacin 200 MG/100 ML BAG 100 MG IV ×2 (10:09→21:32)
[2023-05-10] MEDS: Pantoprazole Sodium 40 MG Tablet PO (10:10)
[2023-05-10] MEDS: guaiFENesin 600 MG Tablet PO ×2 (10:10→21:36)
[2023-05-10] MEDS: Tamsulosin HCl 0.4 MG Capsule PO (10:10)
[2023-05-10] MEDS: Cholecalciferol (VIT D3) 25 MCG TABLET (1,000 UNITS) 50 MCG PO (10:11)
[2023-05-10] MEDS: Montelukast 10 MG Tablet PO (10:11)
[2023-05-10] MEDS: Cyanocobalamin 500 MCG Tablet PO (10:11)
[2023-05-10] MEDS: Fluticasone 0.05% 1 SPRAY NASAL.SRY 2 SPRAY NASAL (10:12)
[2023-05-10] MEDS: Levothyroxine 50 MCG Tablet PO (10:12)
[2023-05-10] MEDS: 0.9% Normal Saline (1000mL) 1,000 ML 75 ML IV ×2 (11:48→23:38)
--- NOTE | 2023-05-10 12:02 | CASEMGMT ---
Social Work SW met with pt to discuss advance directives.? Pt confirms he has completed a living will and health care POA naming Joselyn Gutierrez.? Pt notified that documents are not on file at [facility] and SW requested they be brought in for scanning into the EMR.? MARLENE Guaman
[2023-05-10 12:11] LABS: Bedside Glucose 134 mg/dL (74-106)
[2023-05-10 12:25] LABS: Hematocrit 35.7 % (40-54); Hemoglobin 11.4 g/dL (13.0-16.5)
--- NOTE | 2023-05-10 16:34 | EX.PCM.CON.G ---
HPI Consult Data Date of Consult: 05/10/23 HPI Narrative Reason for Consultation: Lower GI bleeding HPI Narrative: TANI WILLIAMSON, is a 67 M who presents with multiple episodes of lower GI bleeding. He has a past medical history of hypertension; diabetes mellitus; obstructive sleep apnea and hypothyroidism who presents to the emergency department with bright red blood per rectum. At home patient had a large bright red blood per rectum. At the emergency department before patient was seen by hospitalist patient had additional 2 bright red blood per rectum. He described the stool as pure blood with blood clots.. Patient reports that 3 days before presentation he had left lower quadrant pain but he attributed it to his history of inguinal hernia. Patient denies any nausea and vomiting. At the emergency department patient had a low-grade fever. Of note patient reports that 1 to 2 weeks ago he had an episode of upper respiratory infection and took doxycycline and is wondering whether he might have had C. difficile. His hemoglobin at the ED went from 14-11.7. He had 1 large bloody bowel movement this morning around 830. He has not had any bowel movement since. He had a CT scan abdomen pelvis and it displayed uncomplicated acute descending colon diverticulitis. It also displayed some hazy opacities with central mesentery clustered with small lymph nodes indicating sclerosing mesenteritis. [facility] Medical History Asthma COVID-19 COVID-19 Essential hypertension Exposure to COVID-19 virus GERD (gastroesophageal reflux disease) History of skin cancer Hypothyroidism Lower GI bleeding LUKE on CPAP Tachycardia Type 2 diabetes mellitus without complication Home Medications montelukast 10 mg tablet 10 mg PO DAILY 03/21/21 [History Last Taken 12/08/22] cholecalciferol (vitamin D3) 50 mcg (2,000 unit) tablet (Vitamin D3) 2,000 unit PO DAILY 09/15/21 [History Last Taken 12/08/22] metformin 500 mg tablet 500 mg PO DAILY 09/15/21 [History Last Taken 12/08/22] albuterol sulfate 90 mcg/actuation aerosol inhaler 2 puff inhalation Q6H PRN . 06/13/22 [History Last Taken 1 Week Ago ~12/02/22] tamsulosin 0.4 mg capsule 0.4 mg PO DAILY 06/13/22 [History Last Taken 12/07/22] multivitamin 1 tab PO DAILY SUPPLEMENT 12/09/22 [History Last Taken 12/09/22] omeprazole 40 mg capsule,delayed release 40 mg PO DAILY GERD 12/09/22 [History Last Taken 12/09/22] oxymetazoline 0.05 % nasal spray (Afrin (oxymetazoline)) 2 spray intranasal Q12H . 12/09/22 [History Last Taken 12/08/22] rosuvastatin 5 mg tablet 5 mg PO QHS CHOLESTEROL 12/09/22 [History Last Taken 12/08/22] zinc acetate 25 mg (zinc) capsule 30 mg PO DAILY SUPPLEMENT 12/09/22 [History Last Taken 12/08/22] aspirin 81 mg tablet,delayed release (Adult Low Dose Aspirin) 81 mg PO DAILY 12/17/22 [History Last Taken Unknown] levothyroxine 50 mcg tablet 50 mcg PO DAILY 12/17/22 [History Last Taken Unknown] losartan 100 mg tablet 100 mg PO DAILY #90 tabs 12/23/22 [Rx Last Taken Unknown] guaifenesin 600 mg tablet, extended release 12 hr 600 mg PO BID 05/09/23 [History Last Taken Unknown] mecobalamin (vitamin B12) 500 mcg chewable tablet 500 mcg PO DAILY 05/09/23 [History Last Taken Unknown] triamcinolone acetonide 55 mcg nasal spray aerosol (Nasacort) 2 spray intranasal DAILY 05/09/23 [History Last Taken Unknown] Allergy/AdvReac Type Severity Reaction Status Date / Time amoxicillin trihydrate Allergy Rash Verified 05/09/23 19:02 [From Augmentin] potassium clavulanate Allergy Rash Verified 05/09/23 19:02 [From Augmentin] Family History Mother Breast cancer Father Heart disease Cancer Kidney Surgical History H/O hernia repair History of drainage of abscess Social History Smoking Status: Never smoker alcohol intake: never substance use type: does not use caffeine: No (Over the last 3 weeks) ROS ROS Narrative Pertinent positives and pertinent negatives as noted in HPI. All other systems were reviewed and are negative Physical Exam Const alert and no apparent distress HEENT head/scalp atraumatic and moist oral mucous membranes Resp normal respiratory effort, no retractions, no use of accessory muscles and clear to auscultation bilaterally Cardio regular rate, regular rhythm, S1 normal heart sound and S2 normal heart sound GI normal to inspection, nondistended, normoactive bowel sounds, soft to palpation, non-tender and non-distended Extremity normal to inspection and full ROM Lab / Micro Data 05/10/23 12:05 05/10/23 07:10 Labs: Laboratory Results - last 24 hr 05/09/23 19:15: Blood Type O POSITIVE, Antibody Screen NEGATIVE, Crossmatch See Detail 05/09/23 19:27: WBC 10.3, RBC 5.04, Hgb 14.7, Hct 44.5, MCV 88.3, MCH 29.2, MCHC 33.0, RDW Std Deviation 45.1 H, RDW Coeff of Kam 14.0, Plt Count 329, MPV 9.2, Immature Gran % (Auto) 0.400, Neut % (Auto) 73.6 H, Lymph % (Auto) 15.6 L, [place] % (Auto) 9.5, Eos % (Auto) 0.6, Baso % (Auto) 0.3, Absolute Neuts (auto) 7.6, Absolute Lymphs (auto) 1.61, Nucleated RBC % 0, Sodium 142, Potassium 3.6, Chloride 106, Carbon Dioxide 29.0, Anion Gap 7, BUN 11, Creatinine 0.88, Estim Creat Clear Calc 104.06, Est GFR (MDRD) Af Amer 111, Est GFR (MDRD) Non-Af 92, BUN/Creatinine Ratio 12.5, Glucose 117 H, Calcium 9.1, Total Bilirubin 1.20 H, AST 13 L, ALT 26, Alkaline Phosphatase 52, Total Protein 7.3, Albumin 3.7, Globulin 3.6, Albumin/Globulin Ratio 1.0 05/09/23 23:50: POC Glucose 126 H 05/10/23 00:29: Hgb 12.2 L, Hct 38.1 L 05/10/23 06:21: POC Glucose 109 H 05/10/23 07:10: WBC 8.1, RBC 3.98 L, Hgb 11.5 L, Hct 36.8 L, MCV 92.5, MCH 28.9, MCHC 31.3 L D, RDW Std Deviation 47.8 H, RDW Coeff of Kam 13.9, Plt Count 256, MPV 9.4, Immature Gran % (Auto) 0.900, Neut % (Auto) 72.1 H, Lymph % (Auto) 15.8 L, [place] % (Auto) 10.0, Eos % (Auto) 0.7, Baso % (Auto) 0.5, Absolute Neuts (auto) 5.9, Absolute Lymphs (auto) 1.29, Nucleated RBC % 0, Sodium 138, Potassium 3.9, Chloride 107, Carbon Dioxide 26.0, Anion Gap 5, BUN 11, Creatinine 0.76, Estim Creat Clear Calc 91.58, Est GFR (MDRD) Af Amer 131, Est GFR (MDRD) Non-Af 109, BUN/Creatinine Ratio 14.4, Glucose 118 H, Calcium 8.2 L, Total Bilirubin 1.10 H, AST 7 L, ALT 18, Alkaline Phosphatase 41 L, Total Protein 6.2 L, Albumin 2.8 L, Globulin 3.4, Albumin/Globulin Ratio 0.8 L 05/10/23 11:43: POC Glucose 134 H 05/10/23 12:05: Hgb 11.4 L, Hct 35.7 L Micro: Microbiology 05/09/23 20:33 Stool C. difficile DNA Amplification - Final Radiology Impression Abdomen/Pelvis CT 05/09/23 19:27 IMPRESSION: 1. Uncomplicated acute descending colonic diverticulitis. 2. 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 3. There is a colon-containing left inguinal hernia without evidence of incarceration or strangulation. Electronically Signed: Torsten Savage DO at 20:56 EDT , Assessment & Plan Assessment/Plan (1) Diverticulosis: (2) Diverticular hemorrhage: (3) Acute diverticulitis: (4) Type 2 diabetes mellitus without complication: QUALIFIERS: Diabetes mellitus rat exterminator insulin use: without rat exterminator use Qualified Code(s): E11.9 - Type 2 diabetes mellitus without complications (5) Essential hypertension: PLAN: Plan 67-year-old with past medical history of hypothyroidism, LUKE, hypertension, type 2 diabetes who presents with left lower quadrant pain and lower GI bleeding. Acute diverticulitis in the setting of an acute diverticular bleed is not very common. The most likely scenario is that he has acute diverticulitis in the setting of ischemic colitis or segmental colitis associated with diverticulosis and the result of the colitis is the GI bleeding. I do recommend antibiotic therapy for 14 days. He should also be started on mesalamine 2.4 g/day for segmental colitis associated with diverticulosis or ischemic colitis. Recommend to check ESR, CRP. His white count is normal. Trend CBC. Started on ciprofloxacin and Flagyl in the emergency department and continued. He can have full liquid diet. No need for colonoscopy at this time. He should have a colonoscopy in approximately 8 to 12 weeks after this episode. Charges/Coding Visit Charges Inpatient E&M: 17495 Init Hosp L3
[2023-05-10 18:03] LABS: Hematocrit 35.7 % (40-54); Hemoglobin 11.4 g/dL (13.0-16.5)
[2023-05-10] MEDS: 0.9% Normal Saline (250mL Bag) 250 ML 15 ML IV (22:05)
[2023-05-11 01:53] VITALS: BP 124/74; PULSE 72; RESP 18; TEMP 36.5; O2SAT 95
[2023-05-11] MEDS: Levothyroxine 75 MCG Tablet PO (06:00)
[2023-05-11 06:37] VITALS: BP 112/69; PULSE 69; RESP 18; TEMP 36.5; O2SAT 95
[2023-05-11] MEDS: METRONIDAZOLE IV ×2 (06:40→14:38)
[2023-05-11] MEDS: VIAFLEX IV ×2 (06:40→14:38)
[2023-05-11 07:08] VITALS: O2SAT 92
--- NOTE | 2023-05-11 08:18 | PN.HOSP_ITS ---
Reason for Visit Reason for Visit: Diagnoses Acute posthemorrhagic anemia (05/10/23) Type 2 diabetes mellitus without complications (05/10/23) Essential (primary) hypertension (05/10/23) Diverticulosis of large intestine without perforation or abscess with bleeding (05/10/23) Diverticulosis of intestine, part unspecified, without perforation or abscess without bleeding (05/10/23) Diverticulitis of intestine, part unspecified, without perforation or abscess without bleeding (05/10/23) Subjective Subjective No further bleeding. Has been tolerating diet. Objective Data Objective Data Vital Signs: Vital Signs Temp Pulse Resp BP Pulse Ox O2 Del Method 36.5 C L 69 18 112/69 92 Room Air 05/11/23 06:37 05/11/23 06:37 05/11/23 06:37 05/11/23 06:37 05/11/23 07:08 05/11/23 07:08 Oxygen Delivery Method Room Air Weight: 120.2 kg Body Mass Index (BMI) 31.4 Intake & Output: Intake and Output for Last 24 Hours 05/09/23 05/10/23 05/11/23 23:59 23:59 23:59 Intake Total 1000 / 1600 4698.75 / 4698.75 50 / 50 Balance 1000 / 1600 4698.75 / 4698.75 50 / 50 Lab / Micro Data 05/11/23 07:55 05/11/23 07:55 Labs: Laboratory Results - last 24 hr 05/10/23 07:10: Sodium 138, Potassium 3.9, Chloride 107, Carbon Dioxide 26.0, Anion Gap 5, BUN 11, Creatinine 0.76, Estim Creat Clear Calc 91.58, Est GFR (MDRD) Af Amer 131, Est GFR (MDRD) Non-Af 109, BUN/Creatinine Ratio 14.4, Glucose 118 H, Calcium 8.2 L, Total Bilirubin 1.10 H, AST 7 L, ALT 18, Alkaline Phosphatase 41 L, Total Protein 6.2 L, Albumin 2.8 L, Globulin 3.4, Albumin/Globulin Ratio 0.8 L 05/10/23 11:43: POC Glucose 134 H 05/10/23 12:05: Hgb 11.4 L, Hct 35.7 L 05/10/23 17:54: Hgb 11.4 L, Hct 35.7 L Micro: Microbiology 05/09/23 20:33 Stool C. difficile DNA Amplification - Final Physical Exam Const alert and no apparent distress HEENT head/scalp atraumatic Neuro Sensorium / Orientation: awake and alert Psych affect normal Assessment & Plan Assessment/Plan (1) Acute diverticulitis: PLAN: CT showed acute uncomplicated acute descending colonic diverticulitis Cipro and metronidazole for 14 days. GI also recommending mesalamin 2.4 g/d. Outpt colonoscopy in 8-12 weeks. (2) Diverticular hemorrhage: PLAN: seems to be improving. 2/2 diverticulosis Consider bleeding scan if worsens again. GI consult (3) Acute blood loss anemia: PLAN: H/H dropped from 14.7 to 11.4 Monitor No need for TF at this time. PLAN: Plan Chronic conditions: * Diabetes mellitus Blood glucose is stable. Hold home metformin in the hospital setting. Can hold on accucheck for now given stability. * Hypertension Stable. Home blood pressure medication continued. Losartan * BPH: tamsulosin * hypothyroidism: levothyroxine VTE prophylaxis: SCDs.
[2023-05-11] MEDS: Multivitamins,Therapeutic Tablet 1 TABLET PO (08:33)
[2023-05-11 08:40] LABS: Absolute Lymphocyte Count 1.24 X10^3/uL (0.83-4.51); Absolute Neutrophil Count 2.6 X10^3/uL (2.0-7.7); Basophil# 0.02 X10^3/uL; Basophil% 0.4 % (0-1); Eosinophil# 0.16 X10^3/uL; Eosinophils% 3.5 % (0-5); Hematocrit 33.5 % (40-54); Hemoglobin 10.7 g/dL (13.0-16.5); Lymphocyte # 1.24 X10^3/ul (0.83-4.51); Lymphocyte % 26.9 % (19-41); Mean Corp Hgb Conc 31.9 g/dL (32-36); Mean Corpuscular Hgb 29.1 pg (27.0-32.0); Mean Platelet Vol. 9.6 fl (6.2-12.0); Monocyte# 0.51 X10^3/uL; Monocyte% 11.1 % (0-10); NRBC Flagged by Analyzer 0 % (0-5); Neutrophil # 2.64 X10^3/uL (2.7-7.7); Neutrophil % 57.2 % (47-70); Platelet Count 246 K/mm3 (150-450); RBC Distribution Width SD 46.8 fl (35.1-43.9); Red Blood Count 3.68 M/mm3 (4.6-6.2); White Blood Count 4.6 K/mm3 (4.4-11.0)
[2023-05-11 09:03] LABS: Anion Gap 4 (5-15); BUN 8 mg/dL (7-18); BUN/Creat Ratio 10.3 RATIO (10-20); Calcium,Total 8.2 mg/dL (8.5-10.1); Chloride 109 mmol/L (98-107); Creatinine, Serum 0.78 mg/dL (0.70-1.30); EST Glomerular Filtration Rate 106 mL/min (>60); Est Glom Filt Rate - Afr Amer 128 mL/min (>60); Estimated Creatinine Clearance 91.58 ml/min; Glucose 115 mg/dL (74-106); Potassium 3.7 mmol/L (3.5-5.1); Sodium Level 140 mmol/L (136-145)
[2023-05-11] MEDS: Ciprofloxacin 200 MG/100 ML BAG 100 MG IV (10:31)
[2023-05-11] MEDS: guaiFENesin 600 MG Tablet PO (10:49)
[2023-05-11] MEDS: Tamsulosin HCl 0.4 MG Capsule PO (10:49)
[2023-05-11] MEDS: Fluticasone 0.05% 1 SPRAY NASAL.SRY 2 SPRAY NASAL (10:50)
[2023-05-11] MEDS: Cyanocobalamin 500 MCG Tablet PO (10:52)
[2023-05-11] MEDS: Montelukast 10 MG Tablet PO (10:52)
[2023-05-11] MEDS: Pantoprazole Sodium 40 MG Tablet PO (10:52)
[2023-05-11] MEDS: Cholecalciferol (VIT D3) 25 MCG TABLET (1,000 UNITS) 50 MCG PO (10:52)
[2023-05-11 11:02] VITALS: BP 120/79; PULSE 77; RESP 16; TEMP 36.6; O2SAT 96
--- NOTE | 2023-05-11 12:25 | CASEMGMT ---
RN CM Face to Face with patient for initial transition planning/care coordination assessment. RN CM introduced self and role at [facility]. Patient lying in bed, alert and oriented. Patient willing to participate in assessment and is able to answer all questions appropriately. Care providers, pharmacy, and demographics verified. Patient wishes to discharge home, denies need for home health at this time. Patient states he has no further needs or concerns at this time. CM to follow for discharge planning needs that may arise. PCP: Diane Specialists: Natalie, restaurant maintenance technician; RUDDY Hunter Preferred [facility]acy: [facility] Insurance: [facility], [employer] Prescription Benefit: yes Living Will/HPOA: yes, ex Aria Gutierrez LNOK: daughter, ex Living Arrangements: Patient lives alone in a condo with no steps to enter. Patient is independent Transportation: self, ex DME/HHC: Patient has cpap and pulse ox at home. Disposition Plan: Patient to discharge home with family support and follow-up plans in place. Nat ROMANO, RN, CM
--- NOTE | 2023-05-11 13:25 | DS.PCM_ITS ---
Providers Date of Admission: 05/10/23 Primary Care Physician: Dr. Shane Contreras MD Consultations 05/10/23 01:10 Consult: Gastroenterology Routine Consulting Provider: [facility] Reason for Consult: GI bleed EMERGENT Consult: No MD Notified: Yes Date Notified: 05/10/23 Time Notified: 06:14 Method of Notification: Text Reason For Visit: BRIGHT RED BLOOD PER RECTUM Diagnosis Discharge Diagnosis (1) Acute diverticulitis: Status: Acute Code(s): K57.92 - Diverticulitis of intestine, part unspecified, without perforation or abscess without bleeding Plan: CT showed acute uncomplicated acute descending colonic diverticulitis Cipro and metronidazole for 14 days. GI also recommending mesalamin 2.4 g/d. Outpt colonoscopy in 8-12 weeks. (2) Diverticular hemorrhage: Status: Acute Code(s): K57.31 - Diverticulosis of large intestine without perforation or abscess with bleeding Plan: seems to be improving. 2/2 diverticulosis Consider bleeding scan if worsens again. GI consult (3) Acute blood loss anemia: Status: Acute Code(s): D62 - Acute posthemorrhagic anemia Plan: H/H dropped from 14.7 to 11.4 Monitor No need for TF at this time. Plan Chronic conditions: * Diabetes mellitus Blood glucose is stable. Hold home metformin in the hospital setting. Can hold on accucheck for now given stability. * Hypertension Stable. Home blood pressure medication continued. Losartan * BPH: tamsulosin * hypothyroidism: levothyroxine VTE prophylaxis: SCDs. Medications at Discharge Home Medications montelukast 10 mg tablet 10 mg PO DAILY 03/21/21 cholecalciferol (vitamin D3) 50 mcg (2,000 unit) tablet (Vitamin D3) 2,000 unit PO DAILY 09/15/21 metformin 500 mg tablet 500 mg PO DAILY 09/15/21 albuterol sulfate 90 mcg/actuation aerosol inhaler 2 puff inhalation Q6H PRN . 06/13/22 tamsulosin 0.4 mg capsule 0.4 mg PO DAILY 06/13/22 multivitamin 1 tab PO DAILY SUPPLEMENT 12/09/22 omeprazole 40 mg capsule,delayed release 40 mg PO DAILY GERD 12/09/22 oxymetazoline 0.05 % nasal spray (Afrin (oxymetazoline)) 2 spray intranasal Q12H . 12/09/22 rosuvastatin 5 mg tablet 5 mg PO QHS CHOLESTEROL 12/09/22 zinc acetate 25 mg (zinc) capsule 30 mg PO DAILY SUPPLEMENT 12/09/22 aspirin 81 mg tablet,delayed release (Adult Low Dose Aspirin) 81 mg PO DAILY 12/17/22 levothyroxine 50 mcg tablet 50 mcg PO DAILY 12/17/22 losartan 100 mg tablet 100 mg PO DAILY #90 tabs 12/23/22 guaifenesin 600 mg tablet, extended release 12 hr 600 mg PO BID 05/09/23 mecobalamin (vitamin B12) 500 mcg chewable tablet 500 mcg PO DAILY 05/09/23 triamcinolone acetonide 55 mcg nasal spray aerosol (Nasacort) 2 spray intranasal DAILY 05/09/23 fluticasone 232mcg-salmeterol 14mcg/actuation breath act,powder sensor 1 inh inhalation BID asthma 05/10/23 ciprofloxacin HCl 500 mg tablet 500 mg PO BID #24 tabs 05/11/23 mesalamine 1.2 gram tablet,delayed release 2.4 g (2 x 1.2 gram) PO DAILY 8 weeks #112 tabs 05/11/23 metronidazole 500 mg tablet 500 mg PO Q8H #36 tabs 05/11/23 Hospital Course Operations None Procedures None Summary of Care Provided Minutes Spent on Discharge: 35 Hospital Course: Patient presents with part of the blood per rectum. Patient has several epi sodes. CAT scan of his abdomen pelvis showed complicated acute descending colon diverticulitis. Patient was started on broad-spectrum antibiotics with ciprofloxacin and metronidazole. Patient was seen in consultation by gastroenterology who recommended 2-week course of ciprofloxacin and metronida zole and 2.4 g/day of mesalamine. Patient will follow-up with GI the next 8 to 6 to 12 weeks for outpatient colonoscopy. Patient does not have any further bleeding. Patient is tolerated his diet. Patient will be discharged home in stable condition. Weight / BMI Weight Weight: 120.2 kg Body Mass Index (BMI) 31.4 ABG / Lab / Microbiology Data 05/11/23 07:55 05/11/23 07:55 Laboratory: Laboratory Results - last 24 hr 05/10/23 17:54: Hgb 11.4 L, Hct 35.7 L 05/11/23 07:55: WBC 4.6, RBC 3.68 L, Hgb 10.7 L, Hct 33.5 L, MCV 91.0, MCH 29.1, MCHC 31.9 L, RDW Std Deviation 46.8 H, RDW Coeff of Kam 14.0, Plt Count 246, MPV 9.6, Immature Gran % (Auto) 0.900, Neut % (Auto) 57.2, Lymph % (Auto) 26.9, [place] % (Auto) 11.1 H, Eos % (Auto) 3.5, Baso % (Auto) 0.4, Absolute Neuts (auto) 2.6, Absolute Lymphs (auto) 1.24, Nucleated RBC % 0, Sodium 140, Potassium 3.7, Chloride 109 H, Carbon Dioxide 27.0, Anion Gap 4 L, BUN 8, Creatinine 0.78, Estim Creat Clear Calc 91.58, Est GFR (MDRD) Af Amer 128, Est GFR (MDRD) Non-Af 106, BUN/Creatinine Ratio 10.3, Glucose 115 H, Calcium 8.2 L Microbiology: Microbiology 05/09/23 20:33 Stool C. difficile DNA Amplification - Final D/C Instructions Discharge Diet: - ([place] diet, advance as tolerated.) Call your doctor if you observe: - (recurrent rectal bleeding. ) Meaningful Use Info Meaningful Use Diagnoses (Choose all that apply): None applicable Discharge Plan Admission Admit Date/Time: 05/10/23 16:11 Primary Reason for Your Visit: diverticulitis Attending Provider: Todd Conner Primary Care Provider: Shane Contreras Consulting Providers: Woodrow Fox Instructions Additional Instructions / Restrictions: He had acute diverticulitis and GI bleed due to diverticulosis. You will be on Cipro as well as Flagyl for the diverticulitis. You will be on those for 12 more days including 2-week course of antibiotics. Dr. Martines is recommended being on mesalamine 2.4 g daily. Please follow-up for outpatient colonoscopy in the next few months. Please return if you have recurrent GI bleed. Discharge Orders/Prescriptions Prescriptions: New ciprofloxacin HCl 500 mg tablet 500 mg PO BID Qty: 24 0RF metronidazole 500 mg tablet 500 mg PO Q8H Qty: 36 0RF mesalamine 1.2 gram tablet,delayed release (DR/EC) 2.4 g PO DAILY 56 Days Qty: 112 0RF Continued levothyroxine 50 mcg tablet 50 mcg PO DAILY Rx Instructions: 50 mcg M-F, 75 mcg on Sat/Sun tamsulosin 0.4 mg capsule 0.4 mg PO DAILY albuterol sulfate 90 mcg/actuation HFA aerosol inhaler 2 puff inhalation Q6H PRN (Reason: .) montelukast 10 mg tablet 10 mg PO DAILY multivitamin Tablet 1 tab PO DAILY zinc acetate 25 mg (zinc) Capsule 30 mg PO DAILY omeprazole 40 mg Capsule,Delayed Release(Dr/Ec) 40 mg PO DAILY oxymetazoline [Afrin (oxymetazoline)] 0.05 % [place],Non-Aerosol 2 spray INTRANASAL Q12H rosuvastatin 5 mg tablet 5 mg PO QHS Patient Comments: TAKE 1 TABLET BY MOUTH AT BEDTIME guaifenesin 600 mg tablet extended release 12hr 600 mg PO BID triamcinolone acetonide [Nasacort] 55 mcg aerosol,spray 2 spray intranasal DAILY Rx Instructions: administer into each nostril mecobalamin (vitamin B12) 500 mcg tablet,chewable 500 mcg PO DAILY fluticasone propion-salmeterol 232-14 mcg/actuation aero powdr breath act w/sensor 1 inh inhalation BID cholecalciferol (vitamin D3) [Vitamin D3] 50 mcg (2,000 unit) tablet 2,000 unit PO DAILY losartan 100 mg tablet 100 mg PO DAILY Qty: 90 3RF Held metformin 500 mg tablet 500 mg PO DAILY Hold Instructions: Resume on 05/14/23. aspirin [Adult Low Dose Aspirin] 81 mg tablet,delayed release (DR/EC) 81 mg PO DAILY Hold Instructions: Resume on 05/14/23. Referrals / Follow Up: Shane Contreras MD [Primary Care Provider] - Within 2 Weeks Nadir Martines DO [Med Staff - Active Staff] - Within 3 Months Disposition Disposition (needs filled in before D/C Order can be placed): Home, Self Care
[2023-05-11] MEDS: 0.9% Saline Lock 10 ML Syringe IV (14:38)
[2023-05-11 14:46] VITALS: BP 134/75; PULSE 80; RESP 16; TEMP 36.9; O2SAT 96
== END 2023-05-11 16:33 | disposition home or self-care (01) | DRG 378 ==
LOC: ED 21:40 → MS3 21:45
PROVIDERS: Admitting Provider Hospitalist; Emergency Provider Emergency Medicine; PCP Family Medicine
DX: K57.31 Diverticulosis of large intestine without perforation or abscess with bleeding (principal); D62 Acute posthemorrhagic anemia; E11.9 Type 2 diabetes mellitus without complications; E03.9 Hypothyroidism, unspecified; I10 Essential (primary) hypertension; K40.90 Unilateral inguinal hernia, without obstruction or gangrene, not specified as recurrent; G47.33 Obstructive sleep apnea (adult) (pediatric); Z86.16 Personal history of COVID-19; Z79.82 Long term (current) use of aspirin; N40.0 Benign prostatic hyperplasia without lower urinary tract symptoms
CPT/HCPCS: 36415; 74177; 80048; 80053; 82962; 85014; 85018; 85025; 86850; 86900; 86901; 86920; 86922; 87177; 87209; 87329; 87493; 97802; 99285; J7030; J7050; Q9967; A4216; J0744

== ENCOUNTER → 2023-05-24 | Outpatient (CLI) | payer MEDICARE, OTHER, SELFPAY ==
[2023-05-24 08:09] LABS: Absolute Lymphocyte Count 1.17 X10^3/uL (0.83-4.51); Absolute Neutrophil Count 2.8 X10^3/uL (2.0-7.7); Basophil# 0.02 X10^3/uL; Basophil% 0.4 % (0-1); Eosinophil# 0.15 X10^3/uL; Eosinophils% 3.3 % (0-5); Hematocrit 38.8 % (40-54); Hemoglobin 12.3 g/dL (13.0-16.5); Lymphocyte # 1.17 X10^3/ul (0.83-4.51); Lymphocyte % 25.4 % (19-41); Mean Corp Hgb Conc 31.7 g/dL (32-36); Mean Corpuscular Hgb 29.6 pg (27.0-32.0); Mean Corpuscular Volume 93.5 fL (80-94); Mean Platelet Vol. 9.8 fl (6.2-12.0); Monocyte# 0.45 X10^3/uL; Monocyte% 9.8 % (0-10); NRBC Flagged by Analyzer 0 % (0-5); Neutrophil # 2.76 X10^3/uL (2.7-7.7); Platelet Count 243 K/mm3 (150-450); RBC Distribution Width CV 15.8 % (11.6-14.6); RBC Distribution Width SD 53.9 fl (35.1-43.9); Red Blood Count 4.15 M/mm3 (4.6-6.2); White Blood Count 4.6 K/mm3 (4.4-11.0)
[2023-05-24 08:34] LABS: AST(SGOT) 26 U/L (15-37); Alanine Aminotransfer ALT/SGPT 37 U/L (16-61); Albumin, Serum 3.6 g/dL (3.2-5.0); Alkaline Phosphatase 47 U/L (45-117); Anion Gap 2 (5-15); BUN 11 mg/dL (7-18); BUN/Creat Ratio 11.7 RATIO (10-20); Calcium,Total 8.8 mg/dL (8.5-10.1); Chloride 106 mmol/L (98-107); Creatinine, Serum 0.94 mg/dL (0.70-1.30); EST Glomerular Filtration Rate 85 mL/min (>60); Est Glom Filt Rate - Afr Amer 103 mL/min (>60); Globulin 3.6 g/dL (2.2-4.2); Glucose 116 mg/dL (74-106); Potassium 3.8 mmol/L (3.5-5.1); Protein, Total 7.2 g/dL (6.4-8.2); Sodium Level 136 mmol/L (136-145)
== END | disposition home or self-care (01) ==
LOC: LAB 07:32
PROVIDERS: PCP Family Medicine; Referring Provider Family Medicine; Visit Provider Family Medicine
DX: E78.5 Hyperlipidemia, unspecified (principal)
CPT/HCPCS: 36415; 80053; 85025

== ENCOUNTER 2023-06-21 05:18 | Day surgery (SDC) | payer MEDICARE, OTHER, SELFPAY ==
[2023-06-21] VITALS (7 sets, daily range): BP systolic 106–128; BP diastolic 67–78; PULSE 76–94; RESP 17–18; TEMP 36.2–36.9; O2SAT 93–98; BMI 30.8
--- NOTE | 2023-06-21 05:46 | HP.PCM_ITS ---
History and Physical Date of Admission: 06/21/23 Visit Reasons: DIVERTICULITIS Chief Complaint: Abdominal Pain Product Design Manager Required: No Is patient in pain?: Yes Allergies amoxicillin trihydrate [From Augmentin] Allergy (Verified 06/20/23 12:58) Rashpotassium clavulanate [From Augmentin] Allergy (Verified 06/20/23 12:58) Rash Medications montelukast 10 mg tablet 10 mg PO DAILY 03/21/21 [History Confirmed 06/20/23] cholecalciferol (vitamin D3) 50 mcg (2,000 unit) tablet (Vitamin D3) 2,000 unit PO DAILY 09/15/21 [History Confirmed 06/20/23] metformin 500 mg tablet 500 mg PO DAILY 09/15/21 [History Confirmed 06/20/23] albuterol sulfate 90 mcg/actuation aerosol inhaler 2 puff inhalation Q6H PRN . 06/13/22 [History Confirmed 06/20/23] tamsulosin 0.4 mg capsule 0.4 mg PO DAILY 06/13/22 [History Confirmed 06/20/23] multivitamin 1 tab PO DAILY SUPPLEMENT 12/09/22 [History Confirmed 06/20/23] oxymetazoline 0.05 % nasal spray (Afrin (oxymetazoline)) 2 spray intranasal Q12H . 12/09/22 [History Confirmed 06/20/23] zinc acetate 25 mg (zinc) capsule 30 mg PO DAILY SUPPLEMENT 12/09/22 [History Confirmed 06/20/23] aspirin 81 mg tablet,delayed release (Adult Low Dose Aspirin) 81 mg PO DAILY 12/17/22 [History Confirmed 06/20/23] levothyroxine 50 mcg tablet 50 mcg PO DAILY 12/17/22 [History Confirmed 06/20/23] losartan 100 mg tablet 100 mg PO DAILY #90 tabs 12/23/22 [Rx Confirmed 06/20/23] guaifenesin 600 mg tablet, extended release 12 hr 600 mg PO BID 05/09/23 [History Confirmed 06/20/23] mecobalamin (vitamin B12) 500 mcg chewable tablet 500 mcg PO DAILY 05/09/23 [History Confirmed 06/20/23] fluticasone 232mcg-salmeterol 14mcg/actuation breath act,powder sensor 1 inh inhalation BID asthma 05/10/23 [History Confirmed 06/20/23] mesalamine 1.2 gram tablet,delayed release 2.4 g (2 x 1.2 gram) PO DAILY 8 weeks #112 tabs 05/11/23 [Rx Confirmed 06/20/23] pantoprazole 20 mg tablet,delayed release 20 mg PO DAILY 06/20/23 [History Confirmed 06/20/23] peg 3350-electrolytes 236 gram-22.74 gram-6.74 gram-5.86 gram solution 4,000 ml PO ONCE #4,000 mL 06/20/23 [Rx Confirmed 06/20/23] triamcinolone acetonide 55 mcg nasal spray aerosol (Nasacort) 2 spray intranasal BID 06/20/23 [History Confirmed 06/20/23] PFSH Medical History (Updated 06/20/23 @ 13:[address] All Gerber MD) Abdominal pain Asthma COVID-19 COVID-19 Diverticulitis Essential hypertension Exposure to COVID-19 virus GERD (gastroesophageal reflux disease) History of skin cancer Hypothyroidism Lower GI bleeding LUKE on CPAP PFO with atrial septal aneurysm Tachycardia Type 2 diabetes mellitus without complication Surgical History (Updated 06/20/23 @ 12:56 by Nia Henry) H/O hernia repair History of drainage of abscess History of hemorrhoidectomy History of orchiectomy, unilateral Family History Mother Breast cancerFather Heart disease Cancer Kidney Social History Smoking Status: Never smoker alcohol intake: never substance use type: does not use caffeine: No (Over the last 3 weeks) HPI HPI HPI: 57-year-old gentleman who presents today to discuss left-sided abdominal pain and episode of rectal bleeding. The patient states that 6 weeks ago he had some vague left abdominal pain. He was seen by hernia specialist in [facility] and it was felt that his recurrent left inguinal hernia was not a component. May 09 he had copious bright red rectal bleeding that went on from 6 PM to midnight. He presented to the emergency room was admitted placed on IV Cipro metronidazole for 48 hours then home on the same and the bleeding had stopped and he was coming back to feeling normal. He had also been discharged on mesalamine 2.5 mg orally twice daily had been seen by bag hanger Dr. Nadir Martines. CT scan suggested some possible mesenteritis or sclerosing mesenteritis in the left upper quadrant but that was similar to a previous CT scan that had been obtained December 29, 2018 and also 1 previously in 2018. After being off of the oral antibiotics just for several days he was feeling normal actually was able to walk but after a week of that had resumed nonspecific left-sided abdominal pain so he resumed antibiotic on his own discretion ciprofloxacin metronidazole and then just stopped for 5 days ago. He has not fevers chills sweats nausea vomiting no recurrent bright red blood per rectum or melena he is having some tenesmus however. Has not had any weight loss that he notes. It is of note that in the past he had had some spotty bright red rectal bleeding on the tissue and in approximately 2017 2018 he had a surgical hemorrhoidectomy which resolved that problem. This episode of rectal bleeding was different and that it was copious. He feels that this episode of rectal bleeding was far different than his remote history of what was felt to be hemorrhoidal bleeding. 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 The patient makes note that he has had a previous laparoscopic inguinal hernia repair performed at [facility] approximately 8 years ago. Just within the past 6 months he has noticed a recurrence. He went to hernia specialist in [facility] during this time. Of abdominal pain and it was felt by the specialist that the inguinal hernia was not the source of the discomfort and recommended that Dr. Gutierrez consider potential future elective recurrent repair but because of the size of the hernia this was felt not to be emergent. The patient does not recall a particular incident that would have caused the recurrent left inguinal hernia. The tenesmus that he is feeling of needing to defecate without being able to. Other pertinent history includes a previous right orchiectomy for undescended testicle. A laparoscopic left inguinal herniorrhaphy. His most recent colonoscopy was done by Dr. Abdulkadir Blanco on January 02 demonstrating pancolonic diverticulosis internal hemorrhoids but no other acute findings at that time. The patient has some obstructive sleep apnea. He has a patent foramen ovale. He recently had a stress test that was unremarkable and he saw Dr. Emery Estrada for that cardiac workup as he was having some dizziness with subsequent was detected to be the statin medication ROS General General: No weight change, appetite, fatigue, colon cancer, breast cancer or weakness HEENT HEENT: No difficulty swallowing, eye injury, eye surgery, swollen glands or hoarseness Endo Endocrine: Yes thyroid disease and diabetes mellitus; No thyroid cancer, Hair loss, heat intolerance or cold intolerance Skin Skin: No rash or changing moles Breast Breast: No left breast lump, right breast lump, nipple discharge, breast pain, abnormal mammogram, abnormal US or breast enlargement Musc Musculoskeletal: No back problems, arthritis, rheumatoid arthritis, gout or joint pain Cardio Cardiovascular: No murmur, pacemaker, heart disease, atrial fibrillation, high blood pressure, heart attack, heart stent, palpitations, shortness of breat with exertion or chest pain Additional Details: PFO Psych Psychiatric: No depression, anxiety or hearing voices Resp Respiratory: No shortness of breath, Yes sleep apnea, No cough, No COPD, Yes asthma, No emphysema and No wheezing Gastro Gastrointestinal: Yes abdominal pain, No nausea or vomiting, No diarrhea, No constipation, Yes blood in stool, No acid reflux, No hemorrhoids, No ulcers, No gallbladder problem and No black,tarry stools Larry Hematologic: No blood thinners, No blood disorders, No bleeding, No anemia and No blood clots Neuro Neurologic: No system reviewed and no additional complaints, except as documented, No as per HPI, No abnormal gait, No abnormal hearing, No abnormal movements, No abnormal speech, No behavioral changes, No burning sensations, No confusion, No convulsions, No disequilibrium, No dizziness, No localized weakness, No frequent falls, No headache(s), No lack of coordination, No loss of vision, No memory loss, No numbness, No other visual disturbances, No radicular pain, No restless legs, No sensory deficit, No syncope, No tingling, No tremor(s), No weakness and No other Exam Const General: cooperative and healthy appearing [facility] Head: normal to inspection Eyes General: appearance normal, both eyes and all related structures Neck Neck: normal visual inspection Chest Chest palpation & inspection: normal inspection of the chest Resp Effort & Inspection: normal respiratory effort Auscultation: clear to auscultation bilaterally Cardio Rate: regular rate Rhythm: regular rhythm GI Palpation: soft and no hepatosplenomegaly Other: Minimal tenderness in the right lower quadrant to deep palpation and in the epigastric area overlying the aorta. No tenderness in the left mid abdomen or left lower quadrant. Bowel sounds have occasional tinkles. Other: Recurrent left inguinal hernia involving: Which is mostly but not completely reducible. Nontender. Musc Cervical Spine: normal cervical lordosis Skin General: no rashes or lesions noted Neuro General: patient alert, patient awake and patient oriented x3 Extrem General: normal to inspection Psych Appearance: grossly normal Assessment and Plan Assessment and Plan (1) Diverticulitis: Status: Acute (2) Recurrent left inguinal hernia: Status: Acute (3) Lower GI bleeding: Status: Acute Plan: Patient presents because of a generalized feeling of unwellness with a nondescript left-sided abdominal discomfort. He has recently had an episode of bright red rectal bleeding with etiology not known but felt to be possibly secondary to acute sigmoid diverticulitis. Dr. Schmitz Friend gastroenterology has seen the patient and questions whether this episode of bright red rectal bleeding was actually diverticulitis or whether it could be a an otherwise nonspecific colitis. The patient has a recurrent left inguinal hernia which at least on my inspection likely has had a component of at least partial obstruction even though the area is reducible. Patient's had a surgical hemorrhoidectomy in the past and this episode of rectal bleeding seemingly different than his previous 1 but still bright red blood per rectum with no evidence of clot. Putting this altogether as a single diagnosis is challenging. I propose for him a colonoscopy with possible biopsy or polypectomy as indicated we will expedite this for the patient tomorrow. I am suspicious that his recurrent left inguinal hernia is at least providing some component of partial restriction partial obstruction which could have complicated an episode of acute diverticulitis. What is felt to be possible mesenteritis identified on previous CAT scan dating all the way back to 2018 and 2019 with similar findings identified now and yet in the interim being completely asymptomatic makes it difficult suggest that this is a sclerosing mesenteritis. CT imaging etiology unclear. I have suggested the patient colonoscopy. Suggested to him that he may very well need to proceed with a recurrent left inguinal hernia repair that would need to be done in an open technique. It is not clear to me that the rectal bleeding is potentially not anorectal nature he is having tenesmus. We will proceed and then make further recommendations as indicated. We will expedite his colonoscopy tomorrow morning. Copy: Dr. Shane Gerber M.D., F.A.C.S. I have examined the patient and the H&P has been reviewed. There are no clinical changes since date of exam. All Gerber M.D., F.A.C.S.
[2023-06-21] MEDS: Lactated Ringers 1,000 ML 15 ML IV (05:56)
--- NOTE | 2023-06-21 07:03 | OP.COLON_ITS ---
Patient Name: Jeromy Gutierrez Procedure Date: 06/21/2023 6:04 AM Date of : 1955 Age: 67 Procedure: Colonoscopy Indications: Abdominal pain in the left lower quadrant, Rectal bleeding Providers: All Gerber MD Medicines: See the Anesthesia note for documentation of the administered medications Patient Profile: Last Colonoscopy: 5 years ago. Complications: No immediate complications. Procedure: Pre-Anesthesia Assessment: - Prior to the procedure, a History and Physical was performed, and patient medications and allergies were reviewed. The patient's tolerance of previous anesthesia was also reviewed. The risks and benefits of the procedure and the sedation options and risks were discussed with the patient. All questions were answered, and informed consent was obtained. Prior Anticoagulants: The patient has taken no anticoagulant or antiplatelet agents except for aspirin. ASA Grade Assessment: II - A patient with mild systemic disease. After reviewing the risks and benefits, the patient was deemed in satisfactory condition to undergo the procedure. After I obtained informed consent, the scope was passed under direct vision. Throughout the procedure, the patient's blood pressure, pulse, and oxygen saturations were monitored continuously. The adult colonoscope was introduced through the anus and advanced to the cecum, identified by appendiceal orifice and ileocecal valve. The colonoscopy was performed without difficulty. The patient tolerated the procedure well. The quality of the bowel preparation was good. The ileocecal valve and the appendiceal orifice were photographed. Scope In: 6:34:14 AM Scope Withdrawal Time 0 hours 12 minutes 38 seconds Scope Out: 6:55:04 AM Total Procedure Duration Time 0 hours 20 minutes 50 seconds Findings: The perianal and digital rectal examinations were normal. Multiple diverticula were found in the entire colon. The exam was otherwise without abnormality. Impression: - Diverticulosis in the entire examined colon. - The examination was otherwise normal. - No specimens collected. No active rectal bleeding nor positively identified source of rectal bleeding Suspect descending colon diverticulitis as identified on CT imaging with bleeding. Colon is widely patent throughout. The patient's recurrent left inguinal hernia may be aggravating his colon evacuation and diverticular disease. Consider recurrent left inguinal herniorrhaphy Pending his ongoing progress. Recommendation: - Discharge patient to home. - Clear liquid diet. - Continue present medications. - Repeat colonoscopy in 10 years for screening purposes. - Return to my office in 1 week. Procedure Code(s): --- Professional --- 79201, Colonoscopy, flexible; diagnostic, including collection of specimen(s) by brushing or washing, when performed (separate procedure) Diagnosis Code(s): --- Professional --- R10.32, Left lower quadrant pain K62.5, Hemorrhage of anus and rectum K57.30, Diverticulosis of large intestine without perforation or abscess without bleeding CPT copyright 2021 [employer]. All rights reserved. The codes documented in this report are preliminary and upon kelp gatherer review may be revised to meet current compliance requirements. All Gerber MD 06/21/2023 7:01:52 AM This report has been signed electronically. Number of Addenda: 0 Note Initiated On: 06/21/2023 6:04 AM
--- NOTE | 2023-06-21 07:03 | OP.CCLET_ITS ---
06/21/2023 Shane Contreras MD [address] [place] [address] Re : Colonoscopy procedure for Jeromy Gutierrez Dear Dr. Contreras This procedure was performed on Wednesday, June 21, 2023. My impressions and recommendations are as follows: Impressions : - Diverticulosis in the entire examined colon. - The examination was otherwise normal. - No specimens collected. No active rectal bleeding nor positively identified source of rectal bleeding Suspect descending colon diverticulitis as identified on CT imaging with bleeding. Colon is widely patent throughout. The patient's recurrent left inguinal hernia may be aggravating his colon evacuation and diverticular disease. Consider recurrent left inguinal herniorrhaphy Pending his ongoing progress. Recommendations : - Discharge patient to home. - Clear liquid diet. - Continue present medications. - Repeat colonoscopy in 10 years for screening purposes. - Return to my office in 1 week. My findings are described in the full procedure note, which is enclosed. If I can be of further assistance, please feel free to contact me at Doctor phone number(s): Work: . Sincerely, All Gerber MD 06/21/2023 7:01:52 AM This report has been signed electronically.
[2023-06-21 07:06] LABS: Bedside Glucose 112 mg/dL (74-106)
== END 2023-06-21 08:05 | disposition home or self-care (01) ==
LOC: EN 05:19 → AC 05:20
PROVIDERS: PCP Family Medicine; Referring Provider Family Medicine; Visit Provider Surgery
PROC: 0DJD8ZZ Inspection of Lower Intestinal Tract, Via Natural or Artificial Opening Endoscopic (ICD-10-PCS; CPT 45378; principal; 2023-06-21 06:25)
DX: K57.92 Diverticulitis of intestine, part unspecified, without perforation or abscess without bleeding (principal); E11.9 Type 2 diabetes mellitus without complications; K62.5 Hemorrhage of anus and rectum; K40.91 Unilateral inguinal hernia, without obstruction or gangrene, recurrent; G47.33 Obstructive sleep apnea (adult) (pediatric); Z79.84 Long term (current) use of oral hypoglycemic drugs; K57.30 Diverticulosis of large intestine without perforation or abscess without bleeding; I10 Essential (primary) hypertension; Z79.82 Long term (current) use of aspirin; Z79.899 Other long term (current) drug therapy; E03.9 Hypothyroidism, unspecified; K21.9 Gastro-esophageal reflux disease without esophagitis; Z99.89 Dependence on other enabling machines and devices; R10.32 Left lower quadrant pain
CPT/HCPCS: 45378; 82962; J7120; J2405

== ENCOUNTER 2023-09-09 20:20 | Emergency (ER) | payer MEDICARE, OTHER, SELFPAY ==
[2023-09-09 20:20] VITALS: BP 146/98; PULSE 90; RESP 18; TEMP 35.9; O2SAT 98; BMI 32.0
--- NOTE | 2023-09-09 20:34 | CT_ITS ---
INDICATION: LLQ pain EXAMINATION: CT Abdomen And Pelvis W/ Contrast Injection TECHNIQUE: Helically acquired images were obtained of the abdomen and pelvis with sagittal and coronal reconstructed images. Individualized dose optimization techniques were used for this CT. IV contrast dosage and agent: 100 mL of Isovue-370. Oral contrast: None. COMPARISON: 05/09/2023 CT. FINDINGS: VESSELS: No abdominal aortic aneurysm or dissection. LIVER: No evidence of a mass. No intrahepatic or extrahepatic biliary duct dilation. GALLBLADDER: No calcified stones. No evidence of cholecystitis. PANCREAS: No focal solid or cystic mass. No evidence of pancreatitis. SPLEEN: Normal. ADRENAL GLANDS: Normal. KIDNEYS AND URETERS: No urinary tract stone. No hydronephrosis or hydroureter. No significant asymmetric perinephric stranding. Stable simple right renal cyst with no follow-up recommended. URINARY BLADDER: Unremarkable. BOWEL: Diverticulosis with no evidence of diverticulitis. Appendix appears normal. No evidence of bowel obstruction. REPRODUCTIVE ORGANS: Enlarged prostate. PERITONEUM: No intraabdominal free fluid or free air. Stable stranding of the central upper abdominal mesentery with multiple prominent lymph nodes, none of which are pathologic by size criteria. Stable fat containing structure with a thin wall and associated calcifications adjacent to the distal ascending colon possibly representing chronic epiploic appendicitis LYMPH NODES: No pathologically enlarged mesenteric or retroperitoneal lymph nodes. ABDOMINAL WALL: Left inguinal hernia containing a segment of large bowel with no acute associated findings. BONES: No acute abnormality. LOWER CHEST: Visualized lung bases are unremarkable. CT/Abdomen/Pelvis W IV Cont ONLY IMPRESSION: 1. No acute abnormality. 2. 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 3. Left inguinal hernia containing a segment of large bowel with no acute associated findings. 4. Diverticulosis with no evidence of diverticulitis. Electronically Signed: Son Vizcarra DO at 22:10 EST ,
--- NOTE | 2023-09-09 20:35 | EX.ED.DYSGE1 ---
HPI History of Present Illness Chief Complaint: Abd Pain Informant: patient Onset/Context/Timing Onset: Days Context: Gradual Onset Narrative Narrative: Patient presents with a 2-day history of left lower quad abdominal pain that has been gradually worsening. He has a history of diverticulitis with a GI bleed in April of last year. He had a colonoscopy in June that showed diverticulosis throughout with no evidence of acute diverticulitis at that time. Patient reports some nausea but no vomiting. He has initiated a liquid diet over the last day. He has an appointment to see Dr. Gerber tomorrow morning but due to increased pain presents tonight for evaluation. [facility] Medical History (Updated 09/09/23 @ 22:[address] Kyleigh Olmstead MD) Abdominal pain Anxiety Asthma Back pain Cancer Cardiology follow-up encounter COVID-19 CPAP (continuous positive airway pressure) dependence Diabetes Dietary restriction Diverticulitis Essential hypertension Exposure to COVID-19 virus History of echocardiogram History of skin cancer History of stress test Hypothyroidism Lower GI bleeding Non-smoker LUKE on CPAP PFO (patent foramen ovale) PFO with atrial septal aneurysm Tachycardia Type 2 diabetes mellitus without complication Wears contact lenses Wears glasses Home Medications montelukast 10 mg tablet 10 mg PO QHS 03/21/21 [History Last Taken 12/08/22] cholecalciferol (vitamin D3) 50 mcg (2,000 unit) tablet (Vitamin D3) 2,000 unit PO DAILY 09/15/21 [History Last Taken 12/08/22] metformin 500 mg tablet 500 mg PO QHS 09/15/21 [History Last Taken 12/08/22] tamsulosin 0.4 mg capsule 0.4 mg PO QHS 06/13/22 [History Last Taken 12/07/22] multivitamin 1 tab PO DAILY SUPPLEMENT 12/09/22 [History Last Taken 12/09/22] zinc acetate 25 mg (zinc) capsule 30 mg PO DAILY SUPPLEMENT 12/09/22 [History Last Taken 12/08/22] levothyroxine 50 mcg tablet 50 mcg PO DAILY 12/17/22 [History Last Taken Unknown] guaifenesin 600 mg tablet, extended release 12 hr 600 mg PO BID 05/09/23 [History Last Taken Unknown] mecobalamin (vitamin B12) 500 mcg chewable tablet 500 mcg PO DAILY 05/09/23 [History Last Taken Unknown] fluticasone 232mcg-salmeterol 14mcg/actuation breath act,powder sensor 1 inh inhalation BID asthma 05/10/23 [History Last Taken 05/09/23] levothyroxine 75 mcg capsule 75 mcg PO SUSA 06/20/23 [History Last Taken Unknown] losartan 100 mg tablet 100 mg PO QHS 06/20/23 [History Last Taken Unknown] peg 3350-electrolytes 236 gram-22.74 gram-6.74 gram-5.86 gram solution 4,000 ml PO ONCE #4,000 mL 06/20/23 [Rx Last Taken Unknown] triamcinolone acetonide 55 mcg nasal spray aerosol (Nasacort) 1 spray intranasal BID 06/20/23 [History Last Taken Unknown] docusate sodium 100 mg capsule (Colace) 100 mg PO BID 09/09/23 [History Last Taken Unknown] Allergy/AdvReac Type Severity Reaction Status Date / Time amoxicillin trihydrate Allergy Rash Verified 07/01/23 15:03 [From Augmentin] potassium clavulanate Allergy Rash Verified 07/01/23 15:03 [From Augmentin] Family History Mother Breast cancer Father Heart disease Cancer Kidney Surgical History H/O hernia repair History of colonoscopy (~06/2023) History of drainage of abscess History of esophagogastroduodenoscopy (EGD) History of hemorrhoidectomy History of orchiectomy, unilateral Social History Smoking Status: Never smoker alcohol intake: never substance use type: does not use caffeine: No (Over the last 3 weeks) ROS ROS ED Constitutional Constitutional ED: Denies chills or fever(s) Eyes Eyes: Denies discharge from eye(s) ENT ENT ED: Denies discharge from eye(s), rhinorrhea or sore throat Cardiovascular Cardiovascular: Denies chest pain or palpitations Respiratory/Chest Respiratory/Chest: Denies cough or dyspnea Gastrointestinal Gastrointestinal: Reports abdominal pain and nausea; Denies diarrhea or vomiting Genitourinary Genitourinary ED: Denies dysuria Musculoskeletal Musculoskeletal: Denies back pain or extremity pain Integumentary Denies Abrasions or rash Neurologic Neurologic: Denies headache(s) or weakness Psychiatric Psychiatric: Denies anxiety or depression Allergic/Immunologic Allergic/Immunologic ED: Denies lip swelling or urticaria EXAM Physical Exam Const Vital Signs: 09/09/23 20:20 Temperature 96.7 F L Temperature Source Temporal Pulse Rate 90 Respiratory Rate 18 Blood Pressure 146/98 H Blood Pressure Mean 114 Pulse Ox 98 Oxygen Delivery Method Room Air Positive well nourished and well developed General Appearance ED: well developed HEENT Reports moist mucous membranes Eyes EOMs intact bilaterally Chest Wall inspection of chest normal and palpation of chest normal Resp normal respiratory effort and clear to auscultation bilaterally Cardio regular rate and regular rhythm GI GI Narrative: Abdomen soft with mild tenderness in the left lower quadrant. Left inguinal hernia noted that is soft and not significantly tender to palpation. Extremity normal to inspection Neuro oriented x3 and no sensory deficits noted Motor Exam: strength 5/5 throughout Psych mental status grossly normal Skin no rashes or lesions noted MDM MDM MDM Narrative Medical decision making narrative: IV line initiated. Labwork obtained to evaluate for leukocytosis, anemia, and electrolyte derangement. CT scan of the abdomen pelvis with IV contrast will be obtained to evaluate for potential diverticulitis, incarcerated inguinal hernia, bowel obstruction. History & Record Review Discussion w/independent historian: Patient Additional record(s) reviewed:: Prior inpatient record, Prior outpatient record, Prior ED visit and Prior labs Lab Data Attestation: I reviewed the patient's lab results. Labs: Laboratory Results - last 24 hr 09/09/23 20:45 WBC 7.2 RBC 5.55 Hgb 15.3 Hct 46.6 MCV 84.0 MCH 27.6 MCHC 32.8 RDW Std Deviation 43.5 RDW Coeff of Kam 14.3 Plt Count 231 MPV 9.4 Immature Gran % (Auto) 0.600 Neut % (Auto) 59.8 Lymph % (Auto) 27.5 Eaton % (Auto) 10.0 Eos % (Auto) 1.5 Baso % (Auto) 0.6 Absolute Neuts (auto) 4.3 Absolute Lymphs (auto) 1.99 Nucleated RBC % 0 Sodium 138 Potassium 3.7 Chloride 104 Carbon Dioxide 31.0 Anion Gap 3 L BUN 12 Creatinine 0.96 Estim Creat Clear Calc 108.24 Est GFR (MDRD) Af Amer 100 Est GFR (MDRD) Non-Af 83 BUN/Creatinine Ratio 12.4 Glucose 113 H Calcium 9.5 Radiography Diagnostic Testing: Clinical Impression(s) from Imaging Studies Abdomen/Pelvis CT 09/09/23 20:34 IMPRESSION: 1. No acute abnormality. 2. 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 3. Left inguinal hernia containing a segment of large bowel with no acute associated findings. 4. Diverticulosis with no evidence of diverticulitis. Electronically Signed: Son Vizcarra DO at 22:10 EST , Treatment and Re-Evaluation :: Patient declined pain medication here. Lab work reviewed and reveals a white count of 7.2 with normal differential. Hemoglobin is 15.3. Chemistry studies unremarkable with a glucose of 113. CT scan with IV contrast reveals no acute abnormality. 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 Large inguinal hernia on the left with a segment of large bowel with no associated findings. Diverticulosis with no evidence of diverticulitis. Test results reviewed with the patient. He will follow-up with surgery tomorrow morning as scheduled. Discharge Plan Triage Chief Complaint: Abd Pain ED Provider: Kyleigh Olmstead Dx/Rx/DC Orders Clinical Impression: Abdominal pain Instructions: ED Abdominal Pain Unkn Cause Male... Prescriptions: No Action metformin 500 mg tablet 500 mg PO QHS Hold Instructions: Resume on 05/14/23. levothyroxine 50 mcg tablet 50 mcg PO DAILY Rx Instructions: 50 mcg M-F, 75 mcg on Sat/Sun tamsulosin 0.4 mg capsule 0.4 mg PO QHS peg 3350-electrolytes 236-22.74-6.74 -5.86 gram recon soln 4,000 ml PO ONCE Qty: 4000 0RF Rx Instructions: until fecal effluent is clear; do not exceed a total volume of 4000 mL montelukast 10 mg tablet 10 mg PO QHS multivitamin Tablet 1 tab PO DAILY zinc acetate 25 mg (zinc) Capsule 30 mg PO DAILY guaifenesin 600 mg tablet extended release 12hr 600 mg PO BID mecobalamin (vitamin B12) 500 mcg tablet,chewable 500 mcg PO DAILY fluticasone propion-salmeterol 232-14 mcg/actuation aero powdr breath act w/sensor 1 inh inhalation BID triamcinolone acetonide [Nasacort] 55 mcg aerosol,spray 1 spray intranasal BID Rx Instructions: administer into each nostril levothyroxine 75 mcg capsule 75 mcg PO SUSA losartan 100 mg tablet 100 mg PO QHS docusate sodium [Colace] 100 mg capsule 100 mg PO BID cholecalciferol (vitamin D3) [Vitamin D3] 50 mcg (2,000 unit) tablet 2,000 unit PO DAILY Primary Care Provider: Shane Contreras Referrals: Shane Contreras MD [Primary Care Provider] - All Gerber MD [Med Staff - Active Staff] - [facility] appointment Disposition Disposition: Home, Self Care
[2023-09-09 20:53] LABS: Absolute Lymphocyte Count 1.99 X10^3/uL (0.83-4.51); Absolute Neutrophil Count 4.3 X10^3/uL (2.0-7.7); Basophil# 0.04 X10^3/uL; Basophil% 0.6 % (0-1); Eosinophil# 0.11 X10^3/uL; Eosinophils% 1.5 % (0-5); Hematocrit 46.6 % (40-54); Hemoglobin 15.3 g/dL (13.0-16.5); Lymphocyte # 1.99 X10^3/ul (0.83-4.51); Lymphocyte % 27.5 % (19-41); Mean Corp Hgb Conc 32.8 g/dL (32-36); Mean Corpuscular Hgb 27.6 pg (27.0-32.0); Mean Platelet Vol. 9.4 fl (6.2-12.0); Monocyte# 0.72 X10^3/uL; NRBC Flagged by Analyzer 0 % (0-5); Neutrophil # 4.33 X10^3/uL (2.7-7.7); Neutrophil % 59.8 % (47-70); Platelet Count 231 K/mm3 (150-450); RBC Distribution Width CV 14.3 % (11.6-14.6); RBC Distribution Width SD 43.5 fl (35.1-43.9); Red Blood Count 5.55 M/mm3 (4.6-6.2); White Blood Count 7.2 K/mm3 (4.4-11.0)
[2023-09-09 21:07] LABS: Anion Gap 3 (5-15); BUN 12 mg/dL (7-18); BUN/Creat Ratio 12.4 RATIO (10-20); Calcium,Total 9.5 mg/dL (8.5-10.1); Chloride 104 mmol/L (98-107); Creatinine, Serum 0.96 mg/dL (0.70-1.30); EST Glomerular Filtration Rate 83 mL/min (>60); Est Glom Filt Rate - Afr Amer 100 mL/min (>60); Estimated Creatinine Clearance 108.24 ml/min; Glucose 113 mg/dL (74-106); Potassium 3.7 mmol/L (3.5-5.1); Sodium Level 138 mmol/L (136-145)
[2023-09-09] MEDS: 0.9% Normal Saline (1000mL) 1,000 ML 150 ML IV (21:42)
[2023-09-09 22:25] VITALS: BP 129/80; PULSE 75; RESP 16; TEMP 36.6; O2SAT 98
[2023-09-09 22:26] VITALS: BP 129/80; PULSE 78; RESP 16; TEMP 36.6; O2SAT 97
== END 2023-09-09 22:30 | disposition home or self-care (01) ==
PROVIDERS: Emergency Provider Emergency Medicine; PCP Family Medicine; Visit Provider Emergency Medicine
DX: R10.32 Left lower quadrant pain (principal); E11.9 Type 2 diabetes mellitus without complications; G47.33 Obstructive sleep apnea (adult) (pediatric); I10 Essential (primary) hypertension; Z85.828 Personal history of other malignant neoplasm of skin; Z79.899 Other long term (current) drug therapy; Z79.84 Long term (current) use of oral hypoglycemic drugs; E03.9 Hypothyroidism, unspecified; J45.909 Unspecified asthma, uncomplicated; Z79.51 Long term (current) use of inhaled steroids; Z90.79 Acquired absence of other genital organ(s)
CPT/HCPCS: 74177; 80048; 83036; 84443; 85025; 96360; 99283; Q9967

== ENCOUNTER 2023-09-16 13:12 | Day surgery (SDC) | payer MEDICARE, OTHER, SELFPAY ==
[2023-09-11 12:39] LABS: Hemoglobin A1c 6.2 % (3.8-5.6)
[2023-09-16] VITALS (10 sets, daily range): BP systolic 107–130; BP diastolic 72–83; PULSE 79–95; RESP 14–18; TEMP 36.2–36.3; O2SAT 89–98; BMI 31.1
--- NOTE | 2023-09-16 | HERN_PTH ---
PATHOLOGY RESULTS PATIENT: TANI WILLIAMSON [place] [facility] [place][id number] AGE/SX: 68/M ROOM: RE09/16/[address]: Dr. All Gerber MD : [id number] BED: DIS: 09/16/2023 SPEC #: [id number] RECD: 09/16/23 18:08 STATUS: CHARISSA BORDEN #: [id number] NATHALIE: 09/16/23 00:[address]: All Gerber DEPT: SURGICAL PATHOLOGY RECD BY: Andreas Hill ENTERED: 09/17/23 09:00 SP TYPE: Hernia OTHR DR: Dr. Shane Contreras MD Tissues: HERNIA Procedures: Surgery Specimen Level III HEADER OPERATION: Hernia, open recurrent left inguinal with mesh PRE-OP DIAGNOSIS: Recurrent left inguinal hernia TISSUE SUBMITTED: Cremasteric fibers MICROSCOPIC DIAGNOSIS Cremasteric fibers: Fragments of fibroconnective tissue and skeletal muscle tissue with reactive changes, clinically recurrent inguinal hernia. LAURY:megan 09/18/2023 MICROSCOPIC DESCRIPTION Slides are reviewed. GROSS DESCRIPTION Received in fixative is one container labeled with the patient's name and designated cremasteric fibers. The specimen consists of an irregular piece of pink-red tissue measuring 13.0 x 1.5 x 0.5 cm. No mass lesion is identified. Cake Decorator tissue is submitted in one cassette. / LAURY:megan 09/17/2023 TC:5 CPT: 61304
--- NOTE | 2023-09-16 13:49 | PCM.HP.BLA ---
History and Physical Date of Admission: 09/16/23 Chief Complaint: ED f/u Mica Paster Required: No Is patient in pain?: No Allergies amoxicillin trihydrate [From Augmentin] Allergy (Verified 09/10/23 08:09) Rashpotassium clavulanate [From Augmentin] Allergy (Verified 09/10/23 08:09) Rash Medications montelukast 10 mg tablet 10 mg PO QHS 03/21/21 [History Confirmed 09/10/23] cholecalciferol (vitamin D3) 50 mcg (2,000 unit) tablet (Vitamin D3) 2,000 unit PO DAILY 09/15/21 [History Confirmed 09/10/23] metformin 500 mg tablet 500 mg PO QHS 09/15/21 [History Confirmed 09/10/23] tamsulosin 0.4 mg capsule 0.4 mg PO QHS 06/13/22 [History Confirmed 09/10/23] multivitamin 1 tab PO DAILY SUPPLEMENT 12/09/22 [History Confirmed 09/10/23] zinc acetate 25 mg (zinc) capsule 30 mg PO DAILY SUPPLEMENT 12/09/22 [History Confirmed 09/10/23] levothyroxine 50 mcg tablet 50 mcg PO DAILY 12/17/22 [History Confirmed 09/10/23] guaifenesin 600 mg tablet, extended release 12 hr 600 mg PO BID 05/09/23 [History Confirmed 09/10/23] mecobalamin (vitamin B12) 500 mcg chewable tablet 500 mcg PO DAILY 05/09/23 [History Confirmed 09/10/23] fluticasone 232mcg-salmeterol 14mcg/actuation breath act,powder sensor 1 inh inhalation BID asthma 05/10/23 [History Confirmed 09/10/23] levothyroxine 75 mcg capsule 75 mcg PO SUSA 06/20/23 [History Confirmed 09/10/23] losartan 100 mg tablet 100 mg PO QHS 06/20/23 [History Confirmed 09/10/23] peg 3350-electrolytes 236 gram-22.74 gram-6.74 gram-5.86 gram solution 4,000 ml PO ONCE #4,000 mL 06/20/23 [Rx Confirmed 09/10/23] triamcinolone acetonide 55 mcg nasal spray aerosol (Nasacort) 1 spray intranasal BID 06/20/23 [History Confirmed 09/10/23] docusate sodium 100 mg capsule (Colace) 100 mg PO BID 09/09/23 [History Confirmed 09/10/23] PFSH Medical History Abdominal pain Anxiety Asthma Back pain Cancer Cardiology follow-up encounter COVID-19 CPAP (continuous positive airway pressure) dependence Diabetes Dietary restriction Diverticulitis Essential hypertension Exposure to COVID-19 virus History of echocardiogram History of skin cancer History of stress test Hypothyroidism Lower GI bleeding Non-smoker LUKE on CPAP PFO (patent foramen ovale) PFO with atrial septal aneurysm Tachycardia Type 2 diabetes mellitus without complication Wears contact lenses Wears glasses Surgical History H/O hernia repair History of colonoscopy (~06/2023) History of drainage of abscess History of esophagogastroduodenoscopy (EGD) History of hemorrhoidectomy History of orchiectomy, unilateral Family History Mother Breast cancerFather Heart disease Cancer Kidney Social History Smoking Status: Never smoker alcohol intake: never substance use type: does not use caffeine: No (Over the last 3 weeks) HPI HPI HPI: Patient presents with worsening symptoms of abdominal pain with increasing left inguinal hernia. Patient has a known recurrent left inguinal hernia for which he has been evaluated previously by Dr. Gerber. Patient contacted our office noting that he has had vague abdominal pain/discomfort for approximately 4-5 days. he has noted increased belching, change in bowel habits, increased flatus. He denies nausea, vomiting. He has been taking Dulcolax stool softeners 2 tablets twice a day for years to assist with bowel movements. Patient notes he seems to be having smaller bowel movements and not feeling as though he is emptying all of the way. He notes when he eats foods higher in fiber, he can feel that he has a harder time digesting those foods. He notes most of his discomfort is in the mid abdomen, on either side of his umbilicus. Patient notes he has not been able to completely reduce the left inguinal hernia. He denies pain at the hernia site. He notes his previous repair was laparoscopic at [facility] approximately 8 years ago. Patient notes he has a history of acute diverticulitis and GI bleed which he was treated for approximately 4 months ago. He was concerned that he may have a recurrent episode of diverticulitis, however patient notes that his current symptoms are different from his last diverticulitis episode. Patient denies fever. He has placed himself on a clear liquid diet. Patient did complete a lower scope with Dr. Gerber on 06/21 which demonstrated the following per Dr. Gerber's note: Impression: - Diverticulosis in the entire examined colon. - The examination was otherwise normal. - No specimens collected. No active rectal bleeding nor positively identified source of rectal bleeding Suspect descending colon diverticulitis as identified on CT imaging with bleeding. Colon is widely patent throughout. The patient's recurrent left inguinal hernia may be aggravating his colon evacuation and diverticular disease. Consider recurrent left inguinal herniorrhaphy Pending his ongoing progress. Patient notes the pain became worse and concerned him, so he proceeded to the ED at [facility]. A CT scan of the abdomen/pelvis was ordered and demonstrated No acute abnormality. 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 Left inguinal hernia containing a segment of large bowel with no acute associated findings. Diverticulosis with no evidence of diverticulitis. Patient was discharged to home and scheduled to follow-up with our office first thing in the morning. Patient notes he has a patent foramen ovale which was found incidentally during a cardiac work-up at [facility]. Patient notes the table attendant did not recommend starting a daily 81 mg aspirin for this issue. Patient wanted to mention this condition to prevent post-operative DVT's and the risk of having a stroke. Patient denies previous history of DVT's, myocardial infraction or stroke. Patient denies any previous complications with anesthesia or side effects. He zavaleta shave a history of sleep apnea, asthma and BPH. Patient notes he is a diabetic and is on metformin. He notes he is well controlled. Patient notes he uses an inhaler twice day for asthma along with Nasacort. Patient denies any previous respiratory complications post-operatively from his asthma. Patient's previous history per Dr. Gerber: 67-year-old gentleman who presents today to discuss left-sided abdominal pain and episode of rectal bleeding. The patient states that 6 weeks ago he had some vague left abdominal pain. He was seen by hernia specialist in [facility] and it was felt that his recurrent left inguinal hernia was not a component. May 09 he had copious bright red rectal bleeding that went on from 6 PM to midnight. He presented to the emergency room was admitted placed on IV Cipro metronidazole for 48 hours then home on the same and the bleeding had stopped and he was coming back to feeling normal. He had also been discharged on mesalamine 2.5 mg orally twice daily had been seen by medical record specialist Dr. Schmitz Friend. CT scan suggested some possible mesenteritis or sclerosing mesenteritis in the left upper quadrant but that was similar to a previous CT scan that had been obtained December 29, 2018 and also 1 previously in 2018. After being off of the oral antibiotics just for several days he was feeling normal actually was able to walk but after a week of that had resumed nonspecific left-sided abdominal pain so he resumed antibiotic on his own discretion ciprofloxacin metronidazole and then just stopped for 5 days ago. He has not fevers chills sweats nausea vomiting no recurrent bright red blood per rectum or melena he is having some tenesmus however. Has not had any weight loss that he notes. It is of note that in the past he had had some spotty bright red rectal bleeding on the tissue and in approximately 2017 2018 he had a surgical hemorrhoidectomy which resolved that problem. This episode of rectal bleeding was different and that it was copious. He feels that this episode of rectal bleeding was far different than his remote history of what was felt to be hemorrhoidal bleeding. 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 The patient makes note that he has had a previous laparoscopic inguinal hernia repair performed at [facility] approximately 8 years ago. Just within the past 6 months he has noticed a recurrence. He went to hernia specialist in [facility] during this time. Of abdominal pain and it was felt by the specialist that the inguinal hernia was not the source of the discomfort and recommended that Dr. Gutierrez consider potential future elective recurrent repair but because of the size of the hernia this was felt not to be emergent. The patient does not recall a particular incident that would have caused the recurrent left inguinal hernia. The tenesmus that he is feeling of needing to defecate without being able to. Other pertinent history includes a previous right orchiectomy for undescended testicle. A laparoscopic left inguinal herniorrhaphy. His most recent colonoscopy was done by Dr. Abdulkadir Blanco on January 02 demonstrating pancolonic diverticulosis internal hemorrhoids but no other acute findings at that time. The patient has some obstructive sleep apnea. He has a patent foramen ovale. He recently had a stress test that was unremarkable and he saw Dr. Emery Estrada for that cardiac workup as he was having some dizziness with subsequent was detected to be the statin medication. 67-year-old gentleman who I recently got to see in the office on June 21, 2023 with left-sided abdominal pain. To help evaluate him on June 21, 2023 I performed a colonoscopy. Diverticulosis throughout the entire colon was identified. The patient on CT imaging was felt to have a suspected area of dilated reticulitis in the descending colon but the colon appeared to be widely patent at that location. The patient does have a recurrent left inguinal hernia which I felt might have been aggravating his diverticular disease. He has had a previous laparoscopic left inguinal hernia repair done at [facility] about 8 years ago. Patient's colonoscopy he has been feeling better. He is lighten up his diet and he thinks that makes a difference. He he agrees that he thinks that the left inguinal hernia is proving to be more symptomatic than he initially thought. ROS General General: No weight change, appetite, fatigue, colon cancer, breast cancer or weakness HEENT HEENT: No difficulty swallowing, eye injury, eye surgery, swollen glands or hoarseness Endo Endocrine: Yes thyroid disease and diabetes mellitus; No thyroid cancer, Hair loss, heat intolerance or cold intolerance Skin Skin: No rash or changing moles Breast Breast: No left breast lump, right breast lump, nipple discharge, breast pain, abnormal mammogram, abnormal US or breast enlargement Musc Musculoskeletal: No back problems, arthritis, rheumatoid arthritis, gout or joint pain Cardio Cardiovascular: No murmur, pacemaker, heart disease, atrial fibrillation, high blood pressure, heart attack, heart stent, palpitations, shortness of breat with exertion or chest pain Additional Details: PFO Psych Psychiatric: No depression, anxiety or hearing voices Resp Respiratory: No shortness of breath, Yes sleep apnea, No cough, No COPD, Yes asthma, No emphysema and No wheezing Gastro Gastrointestinal: Yes abdominal pain, No nausea or vomiting, No diarrhea, No constipation, Yes blood in stool, No acid reflux, No hemorrhoids, No ulcers, No gallbladder problem and No black,tarry stools Larry Hematologic: No blood thinners, No blood disorders, No bleeding, No anemia and No blood clots Neuro Neurologic: No system reviewed and no additional complaints, except as documented, No as per HPI, No abnormal gait, No abnormal hearing, No abnormal movements, No abnormal speech, No behavioral changes, No burning sensations, No confusion, No convulsions, No disequilibrium, No dizziness, No localized weakness, No frequent falls, No headache(s), No lack of coordination, No loss of vision, No memory loss, No numbness, No other visual disturbances, No radicular pain, No restless legs, No sensory deficit, No syncope, No tingling, No tremor(s), No weakness and No other Exam Const General: cooperative, healthy appearing, comfortable and no acute distress [facility] Head: normal to inspection Eyes General: appearance normal, both eyes and all related structures Neck Neck: normal visual inspection Neck mass: No Carotids: normal carotid upstroke Chest Chest palpation & inspection: normal inspection of the chest Resp Effort & Inspection: normal respiratory effort Auscultation: clear to auscultation bilaterally Cardio Rate: regular rate Rhythm: regular rhythm GI Inspection: large pannus and obesity Palpation: soft, hernia (large left inguinal hernia with bowel, partially reducible) and tender periumbilically Auscultation: hypoactive bowel sounds Musc Cervical Spine: normal cervical lordosis Skin General: no rashes or lesions noted Neuro General: no focal motor deficits and CN's II-XI intact bilaterally Extrem General: normal to inspection Psych Appearance: grossly normal Affect: normal affect Assessment and Plan Assessment and Plan (1) Recurrent left inguinal hernia: Status: Acute Plan: I have discussed this patient with Dr. Gerber. Patient has had recent bowel habit changes along with increasing size of the hernia for which he is no longer able to reduce the hernia completely while laying supine. 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 Dr. Gerber has previously discussed an open recurrent left inguinal hernia repair with possible orchiectomy. Procedure details, risks and benefits have been reviewed. Patient has had the opportunity to ask and have questions answered. Patient had a previous right orchiectomy for an undescended testes. Patient's current symptoms may be from his increasing recurrent left inguinal hernia causing partial colonic obstruction of bowel. I do believe it would be pertinent for the patient to proceed with a hernia repair within the very near future to avoid an emergency hernia repair with possible bowel resection. We recommend the patient start an 81 mg aspirin daily and continue the medication for the procedure. He will need to start Miralax 2 days prior to the procedure. Patient is voluntarily placing himself on a clear liquid diet the day prior to the procedure. Patient will continue his Flomax for the procedure. Patient verbally understands and agrees to proceed with the proposed procedure. Patient is aware that if current symptoms worsen, patient's surgery may need to be moved up. He will call our office with a progress report tomorrow. Patient Instructions: Start taking 81mg aspirin daily today. Start taking miralax 2 days prior to surgery. On September 13, [address] Romain Fox incised and drained a very small abscess right thigh. Placed the patient on doxycycline. The patient appears to be making good progress. The patient has been on doxycycline since. The wound had minimal purulent drainage. He now is behaving the way he has multiple these areas simply turning dry and resolving. He thinks they represent small ingrown hairs. He has no similar problem left groin. He has had appropriate drainage and has been on appropriate antibiotics. With that as a discussion we will proceed with the left inguinal hernia repair. All Gerber M.D., F.A.C.S.
--- NOTE | 2023-09-16 13:51 | EX.PCM.DISCH ---
Discharge Instructions Procedure General Surgery Diet Discharge Diet: Light diet - advance as tolerated (if you have questions about your diet instructions, please talk to you doctor.) Activity Discharge Activity: May Not Drive (for 3-5 days or while taking narcotic pain medicine.) May shower in (days): 1 Lifting Restrictions: 10 pounds Dressing / Incision Call your doctor if your incision/area has: Continuous Slow Oozing, Sudden Increased Bleeding, Increased Pain/ Swelling, Increased Redness and Foul Smelling Discharge Call your doctor if you observe: Fever of 101 or Higher Suture Line Care: Avoid Pulling/Pushing and Avoid Pinching/Bending Additional Dressing/Incision Instructions:: Change or remove dressing in 4 days. Leave steri-strips in place for 1 week. Please continue your doxycycline till complete Please resume your MiraLAX therapy as soon as possible Follow Up Care Please Follow Up With: All Gerber MD When: Call [phone] to make an appointment to be seen on Saturday, September 23, 2023. Discharge Plan Admission Primary Reason for Your Visit: Sliding left inguinal hernia, recurrent Attending Provider: All Gerber Primary Care Provider: Shane Contreras Discharge Orders/Prescriptions Prescriptions: New hydrocodone-acetaminophen 5-325 mg tablet 1 tab PO Q6H PRN (Reason: pain) 3 Days Qty: 10 0RF Continued metformin 500 mg tablet 500 mg PO QHS Hold Instructions: Resume on 05/14/23. levothyroxine 50 mcg tablet 50 mcg PO DAILY Rx Instructions: 50 mcg M-F, 75 mcg on Sat/Sun tamsulosin 0.4 mg capsule 0.4 mg PO QHS doxycycline hyclate 100 mg capsule 100 mg PO BID Qty: 10 0RF montelukast 10 mg tablet 10 mg PO QHS multivitamin Tablet 1 tab PO DAILY zinc acetate 25 mg (zinc) Capsule 30 mg PO DAILY guaifenesin 600 mg tablet extended release 12hr 600 mg PO BID mecobalamin (vitamin B12) 500 mcg tablet,chewable 500 mcg PO DAILY fluticasone propion-salmeterol 232-14 mcg/actuation aero powdr breath act w/sensor 1 inh inhalation BID triamcinolone acetonide [Nasacort] 55 mcg aerosol,spray 1 spray intranasal BID Rx Instructions: administer into each nostril levothyroxine 75 mcg capsule 75 mcg PO SUSA losartan 100 mg tablet 100 mg PO QHS docusate sodium [Colace] 100 mg capsule 100 mg PO BID aspirin 81 mg capsule 81 mg PO DAILY cholecalciferol (vitamin D3) [Vitamin D3] 50 mcg (2,000 unit) tablet 2,000 unit PO DAILY Referrals / Follow Up: Shane Contreras MD [Primary Care Provider] - Disposition Disposition (needs filled in before D/C Order can be placed): Home, Self Care
[2023-09-16] MEDS: Lactated Ringers 1,000 ML 15 ML IV (14:03)
[2023-09-16 14:28] LABS: Bedside Glucose 125 mg/dL (74-106)
[2023-09-16] MEDS: Clindamycin 900 MG/50 ML BAG 75 MG IV (15:10)
--- NOTE | 2023-09-16 17:25 | OP.PCM_ITS ---
Report of Operation Date of Procedure: 09/16/23 Pre-Operative Diagnosis: Symptomatic large recurrent sliding left inguinal luisito ia Post-Operative Diagnosis: Same Surgery/Procedure Performed:: Recurrent left groin sliding inguinal herniorrhaphy with extra-large Bard PerFix plug and double appreciate mesh cover patch Bard mesh PerFix plug extra-large reference [id number], lot [id number], expiry date 11/09/2025, preshaped Bard mesh lot number [id number], reference [id number], expiry date 03/11/2027, Bard mesh preshaped Lot number [id number], reference [id number], expiry date 03/11/2027 Description of Surgical Findings:: Timeout informed consent was obtained. 68-year-old gentleman was taken to the operating placed on the table underwent general anesthesia. He received 900 mg of clindamycin intravenously. The left groin was sterilely prepped and draped. 0.5% Marcaine was used as a local anesthetic. Throughout the procedure to 30 cc was used. Chlorhexidine prep was used and Ioban draping. Local was instilled a transverse incision made in the left groin sharp dissection carried down through the subcutaneous tissue hemostasis attained electrocautery complex recurrent sliding hernia encountered bowel loops were manipulated from the scrotum deeply testicle was elevated great care was taken to identify the cremasteric fibers and cord structures and vascular supply as well as the vas deferens. This was tediously dissected free. It became apparent that this was a sliding defect and a distinct open hernia sac to the peritoneum was not present. Significant amount of electrocautery dissection performed with hemostasis attained electroca utery as well as sharp significant blunt dissection. Finally the cord had been dissected free and exuberant amount of fibrofatty tissue could be reduced back into the retroperitoneum. This point a decision had to be made as to whether I proceeded with an orchiectomy. The patient had had a previous right orchiectomy in childhood. With that as a deciding factor I elected not to perform the left orchiectomy. I placed an extra-large Bard PerFix mesh plug into help retain the prolapsing retroperitoneal tissue and secured that mesh in place beneath the attenuated transversalis sailors fascia with multiple interrupted 3-0 Ethibond sutures. Secured to the shelving edge of Poupart's and to the inguinal ligament as well as to the cord. I felt that I had a very nice reduction and multiple stitches holding the plug in place. I then put 1 patch so that the apex was at the pubic tubercle scooted to the pubic tubercle and to the transversalis fascia around the internal ring and secured to the plug which was in a lateral position. I then had to take another apron cover and placed it surgically apex apron was heading laterally underneath the external oblique fascia. I secured this to the previous apron mesh into the plug itself as I wrapped this when around the cord as well. All of the suturing was done with interrupted 3-0 Ethibond sutures. I then approximated the lateral portion of the external oblique with a running 3-0 Ethibond. This had a to cover pieces of mesh in good position and the plug in good position. With straining everything remained intact. Irrigated the wound with a very dilute Betadine solution. The subcutaneous tissues approximated multiple interrupted 3-0 Vicryl's. Skin edges proximal and subicular 4-0 Monocryl. The Ioban was carefully removed Steri-Strip Telfa OpSite dressings applied. Sponge and instrument and needle counts were reported the surgeon to be correct. Specimens small piece of cremasteric fibers. Drains none. Blood loss 20 cc. This was felt to be a technically very difficult procedure in large part related to the previous failed laparoscopic hernia repair. All Gerber M.D., F.A.C.S. Surgeon: All Gerber Type of Anesthesia: General and Local Anesthesiologist: Marvin Mcclellan
[2023-09-16] MEDS: Bupivacaine Mpf 0.5% 30 ML VIAL (17:30)
[2023-09-16 18:06] LABS: Bedside Glucose 118 mg/dL (74-106)
[2023-09-16] MEDS: HYDROcodone Bitartrate/Apap 5/325 Tablet PO (19:23)
== END 2023-09-16 20:55 | disposition home or self-care (01) ==
LOC: SDC 13:16 → AC 13:17
PROVIDERS: Anesthesiology; PCP Family Medicine; Referring Provider Surgery; Visit Provider Surgery
PROC: (CPT 49525; principal; 2023-09-16 15:15)
DX: K40.91 Unilateral inguinal hernia, without obstruction or gangrene, recurrent (principal); K65.4 Sclerosing mesenteritis; E11.9 Type 2 diabetes mellitus without complications; Z79.84 Long term (current) use of oral hypoglycemic drugs; N40.0 Benign prostatic hyperplasia without lower urinary tract symptoms; G47.33 Obstructive sleep apnea (adult) (pediatric); Q21.12 Patent foramen ovale; K57.30 Diverticulosis of large intestine without perforation or abscess without bleeding; J45.909 Unspecified asthma, uncomplicated; I10 Essential (primary) hypertension; Z99.89 Dependence on other enabling machines and devices; Z86.16 Personal history of COVID-19; E03.9 Hypothyroidism, unspecified; Z85.828 Personal history of other malignant neoplasm of skin; Z87.19 Personal history of other diseases of the digestive system; Z90.79 Acquired absence of other genital organ(s)
CPT/HCPCS: 49525; 54522; 00830; 82962; 83036; 84443; 88302; 88304; A4648; J7120; C1781; J2405

== ENCOUNTER → 2024-02-03 | Outpatient (CLI) | payer MEDICARE, OTHER, SELFPAY ==
[2024-02-03 12:07] LABS: Absolute Lymphocyte Count 1.71 X10^3/uL (0.83-4.51); Absolute Neutrophil Count 2.8 X10^3/uL (2.0-7.7); Basophil# 0.04 X10^3/uL; Basophil% 0.7 % (0-1); Eosinophil# 0.14 X10^3/uL; Eosinophils% 2.6 % (0-5); Hematocrit 42.5 % (40-54); Lymphocyte # 1.71 X10^3/ul (0.83-4.51); Lymphocyte % 31.7 % (19-41); Mean Corp Hgb Conc 32.9 g/dL (32-36); Mean Corpuscular Hgb 28.7 pg (27.0-32.0); Mean Corpuscular Volume 87.3 fL (80-94); Mean Platelet Vol. 9.4 fl (6.2-12.0); Monocyte# 0.68 X10^3/uL; Monocyte% 12.6 % (0-10); NRBC Flagged by Analyzer 0 % (0-5); Neutrophil % 51.8 % (47-70); Platelet Count 214 K/mm3 (150-450); RBC Distribution Width CV 14.3 % (11.6-14.6); RBC Distribution Width SD 45.5 fl (35.1-43.9); Red Blood Count 4.87 M/mm3 (4.6-6.2); White Blood Count 5.4 K/mm3 (4.4-11.0)
== END | disposition home or self-care (01) ==
LOC: LAB 11:33
PROVIDERS: PCP Family Medicine; Referring Provider Internal Medicine Pulmonary Disease; Visit Provider Internal Medicine Pulmonary Disease
DX: R05.9 Cough, unspecified (principal); J45.40 Moderate persistent asthma, uncomplicated
CPT/HCPCS: 36415; 85025

== ENCOUNTER → 2024-05-11 | Outpatient (CLI) | payer MEDICARE, OTHER, SELFPAY ==
[2024-05-11 15:37] LABS: Absolute Lymphocyte Count 1.49 X10^3/uL (0.83-4.51); Absolute Neutrophil Count 2.6 X10^3/uL (2.0-7.7); Basophil# 0.04 X10^3/uL; Basophil% 0.8 % (0-1); Eosinophil# 0.11 X10^3/uL; Eosinophils% 2.3 % (0-5); Hematocrit 41.7 % (40-54); Hemoglobin 13.7 g/dL (13.0-16.5); Lymphocyte # 1.49 X10^3/ul (0.83-4.51); Lymphocyte % 30.8 % (19-41); Mean Corp Hgb Conc 32.9 g/dL (32-36); Mean Corpuscular Hgb 29.4 pg (27.0-32.0); Mean Corpuscular Volume 89.5 fL (80-94); Mean Platelet Vol. 9.9 fl (6.2-12.0); Monocyte# 0.58 X10^3/uL; NRBC Flagged by Analyzer 0 % (0-5); Neutrophil % 53.7 % (47-70); Platelet Count 225 K/mm3 (150-450); RBC Distribution Width CV 13.5 % (11.6-14.6); RBC Distribution Width SD 44.4 fl (35.1-43.9); Red Blood Count 4.66 M/mm3 (4.6-6.2); White Blood Count 4.8 K/mm3 (4.4-11.0)
[2024-05-11 15:42] LABS: Erythrocyte Sedimentation Rate 10 mm/hr (0-20)
[2024-05-11 16:07] LABS: CRP < 2.90 mg/L (0.0-3.0)
--- OUTSIDE RECORDS SUMMARY | 2024-05-11 18:28 | XMS RPT_ITS | CCD ---
Author Organization [facility] Inform ion Partnership [facility] Care Team Providers Care Boring Machine Operator Horizontal Name Role Phone MARILOU FRANK Attending Unavailable SHANE BRANCH. Primary Care Unavailable Ugo BEATTY, Colby Esteban Unavailable [phone] Sebastian Abbott MD Unavailable Unavailable Primary Care Provider UnavailShane Oseguera MD Primary Care Provider DANE MALIK Attending EMERY Carnes Referring Unavailable SHANE BRANCH Primary Care Unavailable Allergies Allergy Classification Reported Allergen(s) Allergy Type Date of Onset Reaction(s) Facility (4 sources) Amoxicillin / Clavulanate Drug Allergy 09-29-2021 rash [facility] Work Phone: (1 source) Amoxicillin / Clavulanate Drug Allergy 02-28-2023 Rash [facility] Medications Current Medications Medication Drug Class(es) Dates Sig (Normalized) Sig (Original) aspirin 81 mg delayed release oral tablet (1 source) Platelet Aggregation Inhibitor, Nonsteroidal Anti-inflammatory Drug take 1 tablet by mouth once daily Aspirin [address] tablet Take 1 tablet by mouth daily. 0 Active cholecalciferol 0.05 mg chewable tablet (5 sources) Vitamin D Cholecalciferol (Vitamin D3) 50 MCG (1999) Chew Tab Chew 1 tablet daily. 0 Active take 1 tablet by mouth once hellen y VITAMIN D3 50 MCG (1999) TABS 1 tablet by mouth once a day cholecalciferol (vitamin d3) [id number] Alexus Duecker AT 60 actuat fluticasone propionate 0.232 mg/actuat / salmeterol xinafoate 0.014 mg/actuat dry powder inhaler (1 source) Corticosteroid, beta2-Adrenergic Agonist take 1 puff(s) by inhalation twice daily Fluticasone-Salmeterol 232-14 MCG/ACT Aerosol Powder, breath activated Inhale 1 puff 2 times daily. 0 Active 12 hr guaiFENesin 600 mg extended release oral tablet (5 sources) take 1 tablet by mouth twice daily guaiFENesin 600 MG Tab SR 12 HR tablet SR Take 1 tablet by mouth Twice daily. 0 Active take 3 tablets by mouth once pratik ly GUAIFENESIN 400 MG TABS 3 tablet by mouth once a day guaifenesin [id number] Alexus Coburn AT levothyroxine sodium 0.075 mg oral tablet (6 sources) l-Thyroxine Start: 12-21-2022 take 1 tablet by mouth once daily, then take 1 tablet by mouth once daily Levothyroxine 75 MCG tablet Take 1 tablet by mouth daily. 1 tablet daily on weekends 0 12/21/2022 Active Start: 11-22-2022 take 1 tablet by arcenio th once daily Levothyroxine 50 MCG tablet Take 1 tablet by mouth daily. Daily Saturday-Saturday. 0 11/22/2022 Active take 1 capsule by mo uth once daily LEVOTHYROXINE SODIUM 50 MCG CAPS 1 capsule by mouth once a day levothyroxine [id number] Alexus Coburn AT losartan potassium 100 mg oral tablet (1 source) Angiotensin 2 Receptor Stacey Start: 12-23-2022 take 1 tablet by mouth once daily losartan 100 MG tablet Take 1 tablet by mouth daily. 0 12/23/2022 Active metFORMIN hydrochloride 500 mg oral tablet (5 sources) Biguanide Start: 02-16-2023 take 1 tablet by mouth once daily metFORMIN 500 MG tablet Take 1 tablet by mouth daily. 0 02/16/2023 Active take 1 tablet by mouth once hellen y METFORMIN HCL ER 500 MG [id number] 1 tablet by mouth once a day metformin [id number] Alexus Coburn AT montelukast 10 mg oral tablet (5 sources) Leukotriene Receptor Antagonist Start: 12-10-2022 take 1 tablet by mouth once daily Montelukast 10 MG tablet Take 1 tablet by mouth daily. 0 12/10/2022 Active take 1 tablet by mouth once hellen y SINGULAIR 10 MG TABS 1 tablet by mouth once a day montelukast [id number] Alexus CORONA Multiple Vitamins-Minerals (MULTIVIT/MULTIMINERAL ADULT PO) (1 source) take 1 tablet by mouth once daily Multiple Vitamins-Minerals (MULTIVIT/MULTIMINERAL ADULT PO) Take 1 tablet by mouth daily. 0 Active oxyCODONE hydrochloride 5 mg oral tablet (1 source) Opioid Agonist Star t: 09-13 End: 09-13 take 1 tablet by mouth every six hours as needed for pain OXYCODONE HCL 5 MG TABS Take 1 tablet by mouth every six hours as needed for pain oxycodone [id number] Sebastian Abbott MD pantoprazole 20 mg delayed release oral tablet (1 source) Proton Pump Inhibitor Star t: 01-13 take 1 tablet by mouth once daily pantoprazole [address] tablet DR Take 1 tablet by mouth daily. 0 02/04/2023 Active tamsulosin hydrochloride 0.4 mg oral capsule (1 source) alpha-Adrenergic Stacey Star t: 11-13 take 1 capsule by mouth at bedtime Tamsulosin HCl 0.4 MG capsule Take 1 capsule by mouth at bedtime. 0 12/05/2022 Active triamcinolone acetonide 0.055 mg/actuat metered dose nasal spray (1 source) Corticosteroid triamcinolone (N asacort Allergy 24HR) 55 MCG/ACT Aerosol 2 sprays by Nasal route 2 times daily. 0 Active vitamin b12 0.5 mg oral tablet (1 source) Vitamin B12 take 1 tablet by mouth once daily Cyanocobalamin (B-12) 500 MCG tablet Take 1 tablet by mouth daily. 0 Active zinc gluconate 30 mg oral tablet (1 source) take 1 tablet by mouth once daily Zinc 30 MG tablet Take 1 tablet by mouth daily. 0 Active Completed/Discontinued Medications Medication Drug Class(es) Dates Sig (Normalized) Sig (Original) clindamycin 300 mg oral capsule (2 sources) Lincosamide Antibacterial Start: 10-02-2021 take 1 capsule by mouth every eight hours CLINDAMYCIN HCL 300 MG CAPS Take 1 capsule by mouth every eight hours Eat yogurt daily while taking this antibiotic clindamycin hcl [id number] Sebastian Abbott MD 14 actuat fluticasone furoate 0.2 mg/actuat dry powder inhaler (4 sources) Corticosteroid ARNUITY ELLIPTA 200 MCG/ACT AEPB 1 puff as directed once a day as needed fluticasone furoate [id number] Alexus Duecker AT lisinopril 10 mg oral tablet (4 sources) Angiotensin Converting Enzyme Inhibitor take 1 tablet by mouth once daily LISINOPRIL 10 MG TABS 1 tablet by mouth once a day lisinopril [id number] Alexus Duecker AT Multivitamin preparation (4 sources) take 1 tablet by mouth once daily MULTI-VITAMINS TABS 1 tablet by mouth once a day multivitamin 49842485607 Alexus Duecker AT omeprazole 20 mg delayed release oral capsule (4 sources) Proton Pump Inhibitor take 1 capsule by mouth once daily OMEPRAZOLE 20 MG CPDR 1 capsule by mouth once a day omeprazole [id number] Alexus Duecker AT zinc acetate 25 mg oral capsule (4 sources) take 1 capsule by mouth once daily zinc acetate 25 mg (zinc) capsule 1 capsule by mouth once a day zinc acetate Alexus Duecker AT Problems Active Problems Problem Classification Problem Date Documented Da te Episodic/Chronic Cardiac and circulatory congenital anomalies (3 sources) Patent foramen ovale; Translations: [Patent foramen ovale] Onset: 02-28-2023 02-28-2023 Chronic Conditions associated with dizziness or vertigo (3 sources) Lightheadedness; Translations: [Dizziness and giddiness] Onset: 12-18-2022 02-28-2023 Episodic Neoplasms of unspecified nature or uncertain behavior (4 sources) 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; Translations: [Neoplasm of uncertain behavior of connective and other soft tissue] Onset: 09-29-2021 09-29-2021 Episodic Other and ill-defined heart disease (1 source) Atrial septal aneurysm; Translations: [Aneurysm of heart] 02-28-2023 Chronic Other and ill-defined heart disease (2 sources) Aneurysm of heart; Translations: [Aneurysm of heart] Onset: 02-28-2023 Chronic Other nervous system disorders (1 source) Neuropathy; Translations: [Polyneuropathy, unspecified] 02-28-2023 Chronic Other nutritional; endocrine; and metabolic disorders (1 source) Obese class I; Translations: [Obesity, unspecified] Onset: 02-28-2023 02-28-2023 Chronic Skin and subcutaneous tissue infections (3 sources) Paronychia; Translations: [Cellulitis, unspecified] Onset: 10-02-2021 10-02-2021 Episodic Past or Other Problems Problem Classification Problem Date Documented Da te Episodic/Chronic Unclassified (4 sources) Problem Results Test Name Value Interpretation Reference Range Facility Clinical Summary: [facility] 10-30-2021 [facility] Plastics Invalid Interpretation Code [facility] Work Phone: Clinical Summary: [place] 10-09-2021 MC25 Plastics Invalid Interpretation Code [facility] Work Phone: CULTURE ANAEROBEon CULTURE ANAEROBE CULTURE ANAEROBE --> Status: F No growth of anaerobes at 5 days. Normal [facility] Comment on above: Performed By: #### CS/BA #### [place] [address] [place] [address] #### S/GRAdilene, C/SONNY #### [place] [address] [address]ULT[address] BACTERIAon 022 CULT[address]ST. BACTERIA CULT./ST. BACTERIA --> Status: F Mixed respiratory kathya present. 1 Organism Streptococcus intermedius (anginosus group) Few 1 Organism Antibiotic Result Intrp Ampicillin(TU) <= 0.25 S Ceftriaxone(TU) <= 0.12 S Clindamycin(TU) >= 1 R Vancomycin(TU) 0.5 S Penicillin-G(TU) <= 0.06 S Normal [facility] Comment on above: Performed By: #### NAOMI/BA #### [address] #### S/KENISHA, C/SONNY #### [address] Clinical Summary: [place] 10-02-2021 [facility] Plastics Invalid Interpretation Code [facility] Work Phone: Gram Stainon 10-02-2021 Gram Stain Result Rare polymorphonuclear cells/lpf. Few gram positive cocci in pairs and chains. Rare gram positive bacilli. [facility] Test Performed by [address] [address] [facility] STAIN GRAMon 10-02-2021 STAIN GRAM STAIN GRAM --> Statu s: F Rare polymorphonuclear cells/lpf. Few gram positive cocci in pairs and chains. Rare gram positive bacilli. Few gram positive cocci in pairs and chains. Rare gram positive bacilli. Normal [facility] Comment on above: Performed By: #### NAOMI/BA #### [address] #### S/KENISHA, C/SONNY #### [address] Surgical Pathologyon 022 Surgical Pathology [id number] [facility] PATHOLOGY AND LABORATORY MEDICINE [address] [place] [address] [id number] FINAL SURGICAL PATHOLOGY REPORT NAME: TANI WILLIAMSON : 1955 66 Y M LEXIE NO.: [id number] LOCATION: 1SPO PROCEDURE 10/02/2021 DATE: SURGEON: SEBASTIAN ABBOTT MD RECEIVED 10/03/2021 DATE: ATTENDING: SEBASTIAN ABBOTT MD REPORT DATE: 10/05/2021 COPIES TO: DIAGNOSIS: SKIN, RIGHT THUMB - SUPERFICIAL PORTION OF INFLAMED REACTIVE EPIDERMAL HYPERPLASIA AND PROMINENT HYPERKERATOSIS Comment: A PAS stain is negative for fungal organisms. The underlying dermis is not available for examination. There is no evidence of malignancy in this sample. JAW/JAW Signature> VANITA LEDESMA M.D. CLINICAL INFORMATION: D48.1 SPECIMEN: TISSUE NOS GROSS DESCRIPTION: Received in formalin labeled right thumb is an irregularly-shaped segment of white to kiran skin tissue measuring 0.5 x 0.4 x 0.1 cm. It is firm with a kiran area which measures 0.2 cm in greatest dimension located less than 0.1 cm to the nearest margin. It is bisected and submitted in one cassette. BSC/KMS1 Disclaimer: The following statement applies to all immunohistochemistry, in situ hybridization, molecular studies, and immunofluorescence testing. The use of one or more reagents in the above tests is regulated as an analyte specific reagent (ASR). These tests were developed and their performance characteristics determined by the clinical laboratories of [facility]. They have not been cleared by the US Food and Drug Administration (FDA). The FDA has determined that such clearance or approval is not necessary. All the above immunostains were performed on paraffin embedded tissue. Appropriate positive and negative controls (where applicable) were run in parallel with the patient's specimen; these controls showed expected staining pattern, with acceptable intensity of staining. Immunohistochemical assays have not been validated on decalcified tissues. Results should be interpreted with caution given the raised possibility of false negativity on decalcified specimens. Professional Performing Location: [place] [address]. DEPARTMENT OF PATHOLOGY AND LABORATORY MEDICINE [place], [place] [address] [email or web address] Normal [facility] Clinical Summary: [place] 09-29-2021 MC25 OP Hand Invalid Interpretation Code [facility] Work Phone: Office Visit: New - visi t with practice, Rm: 10on 09-29-2021 Tobacco smoking status Tobacco smoking status Invalid Interpretation Code [facility] Work Phone: NEGATED: Highlighted rowTobacco smoking status Tobacco smoking status Invalid Interpretation Code [facility] Work Phone: Final Surgical Pathology Rep kathleen 10-15-2018 Final Surgical Pathology Report . Pathology Reports Accession: Collected Date/Time: Received Date/Time: Pathologist: [id number] 10/14/2018 10:21 EDT 10/14/2018 13:02 EDT DO PATRICE RICHTER Final Surgical Pathology Report DIAGNOSIS: EXTERNAL HEMORRHOID, CLINICALLY LEFT LATERAL. CLINICAL INFORMATION: Procedure: HEMORRHOIDECTOMY Preoperative diagnosis: HEMORRHOIDS Postoperative diagnosis: HEMORRHOIDS SPECIMEN: A LEFT LATERAL HEMORRHOID GROSS DESCRIPTION: Received in formalin labeled left lateral hemorrhoid is a 2.8 x 1.5 x 1 cm portion of red soft tissue which is partially surfaced by kiran-pink skin and mucosa. Sectioning shows focally blood- filled vessels. RS -1 Dictated by Ada STONER ([facility]) MICROSCOPIC DESCRIPTION: Slides reviewed. Electronically Signed by Pathology Report verified by [facility] Electronically signed by PATRICE RICHTER DO Sign out Date: 10/15/2018 14:32 Performing Lab: [facility], [address] [place] [address] ([place]) Comment on above: Performed By: #### SPFR #### [place] [address] Vital Signs Date Time Vital Sign Value Performing Clinician Facility 02-28-2023 12:18-0400 Body height 195.6 cm Dane Malik MD Work Phone: [facility] 02-28-2023 12:18-0400 Body mass index (BMI) [Ratio] 32.75 kg/m2 Dane Malik MD Work Phone: [facility] 02-28-2023 12:18-0400 Body weight 125.28 kg Dane Malik MD Work Phone: [facility] 02-28-2023 12:18-0400 Diastolic blood pressure 67 mm[Hg] Dane Malik MD Work Phone: [facility] 02-28-2023 12:18-0400 Heart rate 86 /min Dane Malik MD Work Phone: [facility] 02-28-2023 12:18-0400 Respiratory rate 16 /min Dane Malik MD Work Phone: [facility] 02-28-2023 12:18-0400 SaO2% (BldA) [Mass fraction] 95 % Dane Malik MD Work Phone: [facility] Comment on above: Supine 96% to sittin g 96% by MD at bedside 02-28-2023 12:18-0400 Systolic blood pressure 142 mm[Hg] Dane Malik MD Work Phone: [facility] NEGATED: Highlighted [id number] 12:41-0400 Body height 195.58 cm Kyleigh [facility] Work Phone: NEGATED: Highlighted [id number] 12:41-0400 Body height 196 cm Kyleigh [facility] Work Phone: NEGATED: Highlighted [id number] 12:41-0400 Body mass index (BMI) [Ratio] 31.54 kg/m2 Kyleigh [facility] Work Phone: NEGATED: Highlighted [id number] 12:41-0400 Body weight 120.2 kg Kyleigh [facility] Work Phone: NEGATED: Highlighted [id number] 12:41-0400 Body weight 120 kg Kyleigh [facility] Work Phone: NEGATED: Highlighted [id number] 12:46-0400 Body height 195.58 cm Sharee Chaidez RN [facility] Work Phone: NEGATED: Highlighted [id number] 12:46-0400 Body height 196 cm Sharee Chaidez RN [facility] Work Phone: NEGATED: Highlighted [id number] 12:46-0400 Body mass index (BMI) [Ratio] 32.73 kg/m2 Sharee Chaidez RN [facility] Work Phone: NEGATED: Highlighted [id number] 12:46-0400 Body weight 124.74 kg Sharee Chaidez RN [facility] Work Phone: NEGATED: Highlighted [id number] 12:46-0400 Body weight 125 kg Sharee Chaidez RN [facility] Work Phone: NEGATED: Highlighted [id number] 10:24-0400 Body height 195.58 cm Sharee Chaidez RN [facility] Work Phone: NEGATED: Highlighted [id number] 10:24-0400 Body height 196 cm Sharee Chaidez RN [facility] Work Phone: NEGATED: Highlighted [id number] 10:24-0400 Body mass index (BMI) [Ratio] 32.73 kg/m2 Sharee Chaidez RN [facility] Work Phone: NEGATED: Highlighted [id number] 10:24-0400 Body weight 124.74 kg Sharee Chaidez RN [facility] Work Phone: NEGATED: Highlighted [id number] 10:24-0400 Body weight 125 kg Sharee Chaidez RN [facility] Work Phone: NEGATED: Highlighted [id number] 15:19-0400 Body height 195.58 cm Alexus Duecker AT [facility] Work Phone: NEGATED: Highlighted [id number] 15:19-0400 Body height 196 cm Alexus Duecker AT [facility] Work Phone: NEGATED: Highlighted [id number] 15:19-0400 Body mass index (BMI) [Ratio] 32.73 kg/m2 Alexus Duecker AT [facility] Work Phone: NEGATED: Highlighted [id number] 15: Body weight 124.74 kg Alexus Duecker AT [facility] Work Phone: NEGATED: Highlighted [id number] 15:190400 Body weight 125 kg Alexus Duecker AT [facility] Work Phone: Encounters Encounter Date Encounter Type Care Provider Facility Start: 02-28-2023 ambulatory DANE Olivier MALIK Facility:[facility] Start: 02-28-2023 End: 02-28-2023 Office consultation new/estab patient 80 min Dane Malik MD Work Phone: [employer] [facility] Comment on above: Atrial septal aneury sm (Primary Dx); Patent foramen ovale; Lightheadedness; Neuropathy Start: 12-18-2022 ambulatory [facility] Facility:[facility] Start: [facility] Start: 10-02-2021 End: 10-02-2021 Subsequent hospital visit by physician Sebastian Abbott MD Work Phone: [facility] Start: 09-18-2018 Patient encounter procedure [facility] Facility:A Procedures Date Procedure Procedure Detail Performing Clinician Start: 10-30-2021 End: 10-30-2021 BP scrn no perf at interval Sebastian Abbott MD Work Phone: Start: 10-30-2021 End: 10-30-2021 Calc BMI abv up derrick f/u Sebastian Abbott MD Work Phone: Start: 10-30-2021 End: 10-30-2021 Current tobacco non-user cad cap copd pv dm Sebastian Abbott MD Work Phone: Start: 10-30-2021 End: 10-30-2021 Docrev cur meds by fidencio Abbott MD Work Phone: Start: 10-30-2021 End: 10-30-2021 Pain neg no plan Sebastian Abbott MD Work Phone: Start: 10-30-2021 End: 10-30-2021 Patient encounter procedure Sebastian Abbott MD Work Phone: Start: 10-09-2021 End: 10-09-2021 BP scrn no perf at interval Sebastian Abbott MD Work Phone: Start: 10-09-2021 End: 10-09-2021 Calc BMI abv up derrick f/u Sebastian Abbott MD Work Phone: Start: 10-09-2021 End: 10-09-2021 Current tobacco non-user cad cap copd pv dm Sebastian Abbott MD Work Phone: Start: 10-09-2021 End: 10-09-2021 Docrev cur meds by fidencio Abbott MD Work Phone: Start: 10-09-2021 End: 10-09-2021 Patient encounter procedure Sebastian Abbott MD Work Phone: Start: 10-09-2021 End: 10-09-2021 Pos pain assess no f/u doc Sebastian Abbott MD Work Phone: Start: 10-02-2021 Smr prim src gram/gi emsa stain bct fungi/cell Sebastian Abbott MD Work Phone: Start: 10-02-2021 End: 10-02-2021 Documentation of current medications Sharee Chaidez RN Start: 10-02-2021 End: 10-02-2021 BP scrn no perf at interval Sebastian Abbott MD Work Phone: Start: 10-02-2021 End: 10-02-2021 Calc BMI abv up derrick f/u Sebastian Abbott MD Work Phone: Start: 10-02-2021 End: 10-02-2021 Current tobacco non-user cad cap copd pv miguel Abbott MD Work Phone: Start: 10-02-2021 End: 10-02-2021 Docrev cur meds by fidencio Abbott MD Work Phone: Start: 10-02-2021 End: 10-02-2021 Patient encounter procedure Sebastian Abbott MD Work Phone: Start: 10-02-2021 End: 10-02-2021 Pos pain assess no f/u doc Sebastian Abbott MD Work Phone: Start: 09-29-2021 End: 09-29-2021 Documentation of current medications Sharee Chaidez RN Start: 09-29-2021 End: 09-29-2021 BP scrn no perf at interval Colby Arizmendi MD Work Phone: Start: 09-29-2021 End: 09-29-2021 Calc BMI abv up derrick f/u Colby Arizmendi MD Work Phone: Start: 09-29-2021 End: 09-29-2021 Current tobacco non-user cad cap copd pv dm Colby Arizmendi MD Work Phone: Start: 09-29-2021 End: 09-29-2021 Docrev cur meds by fidencio Arizmendi MD Work Phone: Start: 09-29-2021 End: 09-29-2021 Pain neg no plan Colby Arizmendi MD Work Phone: Start: 09-29-2021 End: 09-29-2021 Patient encounter procedure Colby Arizmendi MD Work Phone: NEGATED: Highlighted rowStart: 10-30-2021 End: 10-30-2021 Documentation of current medications Kyleigh Villegas NEGATED: Highlighted rowStart: 10-09-2021 End: 10-09-2021 Documentation of current medications Sharee Chaidez RN NEGATED: Highlighted rowStart: 10-02-2021 End: 10-02-2021 Documentation of current medications Sharee Chaidez RN NEGATED: Highlighted rowStart: 09-29-2021 End: 09-29-2021 Documentation of current medications Alexus Coburn AT Plan of Treatment Date Care Activity Detail Author Start: 07-01-2024 Tetanus vaccination TETANUS [facility] Start: 03-15-2023 Influenza vaccination INFLUENZA VACC INE (#1) [facility] Start: 09-09-2022 COVID-19 VACCINE (3 - Pfizer series) COVID-19 VACCINE (3 - Pfizer series) [facility] Start: 10-30-2021 End: 10-30-2021 Patient encounter procedure Appointment [facility] Work Phone: Start: 10-09-2021 End: 10-09-2021 Patient encounter procedure Appointment [facility] Work Phone: Start: 10-02-2021 End: 10-02-2021 Patient encounter procedure Appointment [facility] Work Phone: Start: 09-29-2021 End: 09-29-2021 Patient encounter procedure Appointment [facility] Work Phone: Start: 09-29-2021 End: 09-29-2021 Radex hand minimum 3 views XR HAND 3+ VWS-RT [facility] Work Phone: Start: 2021 Abdominal aortic aneurysm screening ABDOMINAL AORTIC ANEURYSM HIGH RISK SCREEN [facility] Start: 2021 Pneumococcal vaccination PNEUMOCOCCAL VACCINE SERIES (1 - PCV) [facility] Start: 03-15-2021 Influenza vaccination Flu vaccine (# 1) [facility] Start: 2006 Prostate specific antigen measurement PROSTATE CANCER SCREENING DISCUSSION [facility] Start: 2006 Zoster vaccine hzv l rachel for subcutaneous use ZOSTER (SHINGLES) VACCINE (1 of 2) [facility] Start: 2001 Screening for malign ant neoplasm of colon COLORECTAL CANCER SCREENING DISCUSSION [facility] Start: 1996 Lipid panel LIPID SCREENING [facility] Start: 1961 COVID-19 Vaccine (1) COVID-19 Vaccin e (1) [facility] Start: 1956 Hepatitis C screening HEPATITI S C VIRUS SCREENING [facility] End: 10-02-2021 Culture, Aerobic Bacteria with Gram Stain Culture, Aerobic Bacteria with Gram Stain Microbiology Routine Once for 1 Occurrences starting 10/02/2021 until 10/02/2021 [facility] Work Phone: Comment on above: Once for 1 Occurrenc es starting 10/02/2021 until 10/02/2021 Culture, Aerobic Bacteria with Gram Stain Culture, Aerobic Bacteria with Gram Stain Microbiology Routine 10/02/2021 12:30 PM EDT [facility] Work Phone: End: 10-02-2021 Culture, Anaerobic Culture, Anaerobic Microbiology Routine Once for 1 Occurrences starting 10/02/2021 until 10/02/2021 [facility] Work Phone: Comment on above: Once for 1 Occurrenc es starting 10/02/2021 until 10/02/2021 Culture, Anaerobic Culture, Anae robic Microbiology Routine 10/02/2021 12:30 PM EDT [facility] Work Phone: Immunizations Immunization Date Immunization Notes Care Provider [facility] 05-07-2022 influenza virus vaccine, unspecified formulation Dane Malik MD Work Phone: [facility] Payers Date Payer Category Payer Medicare MEDICARE MEDICAR E A AND B [id number] 2022-Present [address] [place] [address] [id number] 2022 Medicare [id number] 2021 Unknown GENERIC PAYOR ME DICARE SUPPLEMENT [id number] 2021-Present [phone] [id number] [place] [address] [id number] 2021 Unknown [id number] 2018 Private Health Insurance [id number] 1955 Unknown [id number] 1955 Unknown [id number] 1955 Unknown [id number] 1956 Unknown [id number] 1955 Unknown [id number] Social History Date Type Detail Facility Start: 10-02-2021 End: 10-30-2021 Assertion Unknown if ever smoked [facility] Work Phone: Start: 1955 Sex Assigned At Not on file [facility] Work Phone: Start: 02-28-2023 Tobacco smoking status NHIS Never smoked tobacco [facility] Start: 02-28-2023 Tobacco use and exposure Smokeless tobacco non-user [facility] Start: 02-28-2023 Alcohol intake Ex-drinker (finding) [facility] Start: 02-28-2023 History of Social function [facility] Start: 02-28-2023 Tobacco use panel [facility] NEGATED: Highlighted rowStart: 09-29-2021 End: 09-29-2021 Alcohol use Alcohol use [facility] Work Phone: NEGATED: Highlighted rowStart: 09-29-2021 End: 09-29-2021 Details of drug misuse behavior Details of drug misuse behavior [facility] Work Phone: NEGATED: Highlighted rowStart: 09-29-2021 End: 09-29-2021 How many days of moderate to strenuous exercise, like a brisk walk, did you do in the last 7 days? How many days of moderate to strenuous exercise, like a brisk walk, did you do in the last 7 days? [facility] Work Phone: NEGATED: Highlighted rowStart: 09-29-2021 End: 09-29-2021 Assertion Never smoker [facility] Work Phone: History of Present illness Narrative 02-28-2023 Dane Malik MD - 02/28/2023 12:30 PM EDTMkatie Castillo RN - 02/28/2023 12:30 PM EDT Note Date & Type Note Facility 02-28-2023 History of Present illness Narrative Tani Williamson is a very pleasant 67 y.o. male who has been referred by Dr Emery Estrada for evaluation of patent foramen ovale (PFO). 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 Patient presented to the ED 11/2022 due lightheadedness while walking in the park. No syncope. Per report, ECG with PVC and cardiac enzymes negative. Subsequent stress test was negative, see below. Echocardiogram with aneurysmal septum and PFO. The patient states his lightheadedness persisted and was continuous lasting ~ 6 weeks. In addition, during that time he developed bilateral neuropathy in his lower extremities. Due to concern these symptoms were due to taking rosuvastatin he discontinued this medication with complete resolution of his symptoms a few days later. Patient states symptoms have not returned and recently ran 5K. Patient denies prior DVT, PE, stroke or other paradoxical embolization. Patient does not experience angina, chest pain, dyspnea, LE edema, orthopnea, PND, syncope or palpitations. Prior cardiac catheterization: denies Past Medical History: - patent foramen ovale (PFO) - hypertension - hyperlipidemia - diabetes mellitus type 2 - inguinal hernia - sleep apnea - asthma - hypothyroidism Past Social History: Social History Tobacco Use Smoking status: Never Smokeless tobacco: Never Vaping Use Vaping Use: Never used Substance Use Topics Alcohol use: Not Currently Drug use: Not Currently Past Family History: - father with CAD and CABG - no neurologic disease Allergies Allergen Reactions Augmentin [Amoxicillin-Pot Clavulanate] Rash Current Outpatient Medications Medication Sig Dispense Refill Aspirin [address] tablet Take 1 tablet by mouth daily. Cholecalciferol (Vitamin D3) 50 MCG (1999 UT) Chew Tab Chew 1 tablet daily. Cyanocobalamin (B-12) 500 MCG tablet Take 1 tablet by mouth daily. Fluticasone-Salmeterol 232-14 MCG/ACT Aerosol Powder, breath activated Inhale 1 puff 2 times daily. guaiFENesin 600 MG Tab SR 12 HR tablet SR Take 1 tablet by mouth Twice daily. Levothyroxine 50 MCG tablet Take 1 tablet by mouth daily. Daily Saturday-Saturday. Levothyroxine 75 MCG tablet Take 1 tablet by mouth daily. 1 tablet daily on weekends losartan 100 MG tablet Take 1 tablet by mouth daily. metFORMIN 500 MG tablet Take 1 tablet by mouth daily. Montelukast 10 MG tablet Take 1 tablet by mouth daily. Multiple Vitamins-Minerals (MULTIVIT/MULTIMINERAL ADULT PO) Take 1 tablet by mouth daily. pantoprazole [address] tablet DR Take 1 tablet by mouth daily. Tamsulosin HCl 0.4 MG capsule Take 1 capsule by mouth at bedtime. triamcinolone (Nasacort Allergy 24HR) 55 MCG/ACT Aerosol 2 sprays by Nasal route 2 times daily. Zinc 30 MG tablet Take 1 tablet by mouth daily. No current facility-administered medications for this visit. Review of Systems (ROS): Full ROS reviewed and negative unless otherwise stated. Physical Exam: Blood pressure 142/67, pulse 86, resp. rate 16, height 1.956 m (6' 5 ), weight 125.3 kg (276 lb 3.2 oz), SpO2 95 %. Pulse-ox checked in clinic and no significant change in oxygenation when supine and sitting, both 96% Gen - well nourished; alert and orientated x 3, mood normal Head & Neck- normocephalic; no JVD Lungs- clear to auscultation bilateral without rales, rhonchi, wheezing; good air movement bilateral; no use of accessory muscles CV- RRR without murmurs, gallops, rubs Abd- non-tender; non-distended; soft; +BS; no rebound/guarding Neuro- CN III-XII intact, no gross deficits; gait normal Extr- no edema bilateral; warm distal extremities Skin- no facial rashes Cardiac Imaging Stress Test: 12/12/22 (scanned) - Normal myocardial perfusion study Transthoracic Echocardiogram: 12/12/22 (scanned) - LVEF 65% - normal RV size and systolic function - normal LA and RA - aneurysmal septum, PFO Assessment and Plan: Tani Williamson is a very pleasant 67 y.o. male who has been referred by Dr Emery Estrada for evaluation of patent foramen ovale (PFO). Patent foramen ovale (PFO) suggested on outside echocardiogram with aneurysmal septum; right/left atrium reported normal and right ventricle reported normal size and systolic function. The PFO was incidentally found as part of an evaluation for lightheadedness. Patient presented to the ED 11/2022 due lightheadedness while walking in the park. No syncope. Per report, ECG with PVC and cardiac enzymes negative. Subsequent stress test was negative, see below. The patient states his lightheadedness persisted and was continuous lasting ~ 6 weeks. In addition, during that time he developed bilateral neuropathy in his lower extremities. Due to concern these symptoms were due to taking rosuvastatin he discontinued this medication with complete resolution of his symptoms a few days later. Patient states symptoms have not returned. The patient denies a history of deep venous thrombus, pulmonary embolism, stroke, or paradoxical embolization. Thus, no indication to close PFO. Discussed with patient PFO present at and can be found in ~ 20-25% of the population. No contraindication for hernia surgery from a PFO standpoint. Patient will be discharged from our clinic and continue to follow with primary direct marketing coordinator and primary care provider. Patient Education Patient education regarding the following topic(s) was provided on 02/28/2023: overall plan of care. Those in attendance for the education included: patient. Barriers in providing the education included: none. The following methods were used in providing the education: explanation and handout. [facility] handouts given included: After visit summary. The response of those in attendance was: states/identifies education topic. The following Clinical Intervention(s) occurred during today s visit: Extensive teaching provided to patient and or support team regarding overall plan of care documented in this encounter [facility] Instructions 02-28-2023 Patient Instructions Note Date & Type Note Facility 02-28-2023 Instructions Hailey Castillo RN - 02/28/2023 12:30 PM EDT Recommendations from Dr Malik at your appt today: Please continue current medications. Follow up with Dr Estrada. [facility] My chart is an option for non-urgent communication to your direct marketing coordinator. To contact the office, please call [phone]. documented in this encounter [facility] Instructions 09-29-2021 Note Date & Type Note Facility 09-29-2021 Instructions Patient advised to follow-up with Primary Care Physician for BMI management. [facility] Work Phone: Evaluation note Note Date & Type Note Facility Evaluation note There may be informa tion available, but it has not been provided by the sender. [facility] Work Phone: Evaluation note Note Date & Type Note Facility Evaluation note Diagnosis Atrial septal aneurysm- Primary Aneurysm of heart (wall) Patent foramen ovale Ostium secundum type atrial septal defect Lightheadedness Dizziness and giddiness Neuropathy Mononeuritis of unspecified site documented in this encounter [facility] Instructions Note Date & Type Note Facility Instructions Patient advised to follow-up with Primary Care Physician for BMI management. [facility] Work Phone: Instructions Note Date & Type Note Facility Instructions Patient advised to follow-up with Primary Care Physician for BMI management. [facility] Work Phone: Instructions Note Date & Type Note Facility Instructions Patient advised to follow-up with Primary Care Physician for BMI management. [facility] Work Phone: Summary Purpose Family History No Family History Records FoundThere may be information available, but it has not been provided by the sender.There may be information available, but it has not been provided by the sender.There may be information available, but it has not been provided by the sender.No Family History Records FoundThere may be information available, but it has not been provided by the sender.No Family History Records Found Advance Directives No Advanced Directives Records FoundThere may be information available, but it has not been provided by the sender.There may be information available, but it has not been provided by the sender.There may be information available, but it has not been provided by the sender.No Advanced Directives Records FoundThere may be information available, but it has not been provided by the sender.No Advanced Directives Records Found Chief Complaint Chief Complaint Description Start Date right hand pain Preliminary chief co mplaint data, not yet signed by the author as of Chief Complaint Description Start Date right thumb finger lesion Preliminary chief co mplaint data, not yet signed by the author as of Chief Complaint Description Start Date thumb finger infection Preliminary chief co mplaint data, not yet signed by the author as of Chief Complaint Description Start Date right thumb wound Preliminary chief co mplaint data, not yet signed by the author as of Additional Source Comments (unrecognized sect ion and content) No Status Records FoundNo Status Records FoundNo Status Records Found INFORMATION SOURCE (unrecogn ized section and content) DATE CREATED AUTHOR 10/17/2018 [facility] ([place]) DATE CREATED AUTHOR AUTHOR'S ORGANIZ ATION 10/10/2021 [facility] DATE CREATED AUTHOR AUTHOR'S ORGANIZ ATION 03/01/2023 [facility] [place] Reason for Visit (unrecogniz ed section and content) Reason For Visit Description New - 1st visit with practice Preliminary reason f or visit data, not yet signed by the author as of right hand pain Reason For Visit Description Start Date New/Est - 1st visit with physician 10/02 Preliminary reason f or visit data, not yet signed by the author as of right thumb finger lesion Reason For Visit Description Start Date Follow-up by complaint Preliminary reason f or visit data, not yet signed by the author as of thumb finger infection Reason For Visit Description Start Date Follow-up by complaint Preliminary reason f or visit data, not yet signed by the author as of right thumb wound Reason Comments New Patient Specialty Diagnoses / Procedures Referred By Contac t Referred To Contact Cardiovascular Medicine Diagnoses Patent foramen ovale Aneurysm of heart Emery Estrada MD [address] [facility] [place] [address] [facility] [address] [place] [address] Referral ID Status Reason Start Date Expiration Date V isits Requested Visits Authorized [id number] New Request 12/18/2022 01/12/2024 1 1 Care Teams (unrecognized sec tion and content) 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 This clinical summary was aggregated from multiple sources. Caution should be exercised in using it in the provision of clinical care. This summary normalizes information from multiple sources, and as a consequence, information in this document may materially change the coding, format and clinical context of patient data. In addition, data may be omitted in some cases. CLINICAL DECISIONS SHOULD BE BASED ON THE PRIMARY CLINICAL RECORDS. [employer] provides no warranty or guarantee of the accuracy or completeness of information in this document.
[2024-05-13 13:08] LABS: Angiotensin Convert Enzyme 42 U/L (14-82)
== END | disposition home or self-care (01) ==
PROVIDERS: PCP Family Medicine; Referring Provider Internal Medicine Pulmonary Disease; Visit Provider Internal Medicine Pulmonary Disease
DX: J45.50 Severe persistent asthma, uncomplicated (principal)
CPT/HCPCS: 36415; 82164; 85025; 85652; 86140

== ENCOUNTER 2024-05-29 09:48 | Outpatient (CLI) | payer MEDICARE, OTHER, SELFPAY ==
[2024-05-29 11:56] LABS: AST(SGOT) 14 U/L (15-37); Alanine Aminotransfer ALT/SGPT 27 U/L (16-61); Albumin, Serum 3.9 g/dL (3.2-5.0); Alkaline Phosphatase 66 U/L (45-117); Anion Gap 4 (5-15); BUN 16 mg/dL (7-18); BUN/Creat Ratio 16.1 RATIO (10-20); Calcium,Total 9.4 mg/dL (8.5-10.1); Chloride 104 mmol/L (98-107); Cholesterol 214 mg/dL (200); Creatinine, Serum 0.99 mg/dL (0.70-1.30); EST Glomerular Filtration Rate 80 mL/min (>60); Est Glom Filt Rate - Afr Amer 97 mL/min (>60); Globulin 3.8 g/dL (2.2-4.2); Glucose 109 mg/dL (74-106); High Density Lipoprotein 48 mg/dL; PSA,Total- Diagnostic 0.64 ng/mL (0.0-4.0); Potassium 4.2 mmol/L (3.5-5.1); Protein, Total 7.7 g/dL (6.4-8.2); Sodium Level 138 mmol/L (136-145); T4 Free Direct 0.95 ng/dL (0.76-1.46); Triglycerides 316 mg/dL; Very Low Density Lipoprotein 63 mg/dL (5-40)
== END 2024-05-29 23:59 | disposition home or self-care (01) ==
PROVIDERS: PCP Family Medicine; Referring Provider Family Medicine; Visit Provider Family Medicine
DX: Z00.00 Encounter for general adult medical examination without abnormal findings (principal); E11.9 Type 2 diabetes mellitus without complications; E03.9 Hypothyroidism, unspecified; N40.0 Benign prostatic hyperplasia without lower urinary tract symptoms
CPT/HCPCS: 36415; 80053; 80061; 83036; 84153; 84439; 84443; 84481

== ENCOUNTER → 2024-08-24 | Outpatient (CLI) | payer MEDICARE, OTHER, SELFPAY ==
[2024-08-24 10:49] LABS: AST(SGOT) 21 U/L (15-37); Alanine Aminotransfer ALT/SGPT 32 U/L (16-61); Albumin, Serum 3.6 g/dL (3.2-5.0); Alkaline Phosphatase 62 U/L (45-117); Anion Gap 9 (5-15); BUN 12 mg/dL (7-18); BUN/Creat Ratio 13.5 RATIO (10-20); Calcium,Total 9.5 mg/dL (8.5-10.1); Chloride 103 mmol/L (98-107); Cholesterol 159 mg/dL (200); Creatinine, Serum 0.89 mg/dL (0.70-1.30); EST Glomerular Filtration Rate 91 mL/min (>60); Est Glom Filt Rate - Afr Amer 110 mL/min (>60); Free T3 2.8 pg/mL (2.18-3.98); Globulin 3.7 g/dL (2.2-4.2); Glucose 111 mg/dL (74-106); High Density Lipoprotein 53 mg/dL; Potassium 3.7 mmol/L (3.5-5.1); Protein, Total 7.3 g/dL (6.4-8.2); Sodium Level 138 mmol/L (136-145); T4 Free Direct 1.02 ng/dL (0.76-1.46); Triglycerides 215 mg/dL; Very Low Density Lipoprotein 43 mg/dL (5-40)
== END | disposition home or self-care (01) ==
LOC: MFPLAB 08:49
PROVIDERS: PCP Family Medicine; Referring Provider Family Medicine; Visit Provider Family Medicine
DX: E11.9 Type 2 diabetes mellitus without complications (principal); E03.9 Hypothyroidism, unspecified; E78.5 Hyperlipidemia, unspecified
CPT/HCPCS: 36415; 80053; 80061; 84439; 84443; 84481

== ENCOUNTER → 2024-11-26 | Outpatient (CLI) | payer MEDICARE, OTHER, SELFPAY ==
[2024-11-26 12:29] LABS: Absolute Lymphocyte Count 1.29 X10^3/uL (0.83-4.51); Absolute Neutrophil Count 2.6 X10^3/uL (2.0-7.7); Basophil# 0.03 X10^3/uL; Basophil% 0.6 % (0-1); Eosinophil# 0.06 X10^3/uL; Eosinophils% 1.3 % (0-5); Hematocrit 41.6 % (40-54); Lymphocyte # 1.29 X10^3/ul (0.83-4.51); Lymphocyte % 27.6 % (19-41); Mean Corp Hgb Conc 33.7 g/dL (32-36); Mean Corpuscular Hgb 30.1 pg (27.0-32.0); Mean Corpuscular Volume 89.5 fL (80-94); Mean Platelet Vol. 10.1 fl (6.2-12.0); Monocyte# 0.63 X10^3/uL; Monocyte% 13.5 % (0-10); NRBC Flagged by Analyzer 0 % (0-5); Neutrophil # 2.64 X10^3/uL (2.7-7.7); Neutrophil % 56.4 % (47-70); Platelet Count 235 K/mm3 (150-450); RBC Distribution Width CV 13.6 % (11.6-14.6); RBC Distribution Width SD 44.2 fl (35.1-43.9); Red Blood Count 4.65 M/mm3 (4.6-6.2); White Blood Count 4.7 K/mm3 (4.4-11.0)
[2024-11-26 13:06] LABS: Hemoglobin A1c 6.1 % (<=5.6)
[2024-11-26 13:27] LABS: ALB/GLOB Ratio 1.5 RATIO (0.9-2.4); AST(SGOT) 41 U/L (<=37); Alanine Aminotransfer ALT/SGPT 41 U/L (<=46); Albumin, Serum 4.3 g/dL (3.4-4.8); Alkaline Phosphatase 62 U/L (40-129); Anion Gap 12 (5-15); BUN 13 mg/dL (4-19); Calcium,Total 9.4 mg/dL (7.6-11.0); Carbon Dioxide 23.4 mmol/L (21.0-32.0); Chloride 101 mmol/L (98-108); EST Glomerular Filtration Rate 93 (>60); Globulin 2.8 g/dL (2.2-4.2); Glucose 119 mg/dL (70-99); Lipase 16 U/L (13-75); Potassium 3.8 mmol/L (3.3-5.1); Protein, Total 7.1 g/dL (5.9-8.4); Sodium Level 137 mmol/L (133-145); Total Bilirubin 0.66 mg/dL (0.00-1.30)
== END | disposition home or self-care (01) ==
LOC: MFPLAB 09:45
PROVIDERS: PCP Family Medicine; Referring Provider Family Medicine; Visit Provider Family Medicine
DX: E11.9 Type 2 diabetes mellitus without complications (principal); R10.9 Unspecified abdominal pain; E03.9 Hypothyroidism, unspecified
CPT/HCPCS: 36415; 80053; 82043; 82570; 83036; 83690; 84439; 84443; 84481; 85025

== ENCOUNTER 2025-01-29 08:19 | Day surgery (SDC) | payer MEDICARE, OTHER, SELFPAY ==
--- NOTE | 2025-01-27 20:35 | PAT.ANESEVAL ---
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 When Was Last Pacemaker Check QUESTION #4 FULL TEXT: You/Your Family Experience fever (hyperthermia) with Anesthesia Last Oral Intake Last Oral intake: Last Oral Intake NPO since Meds taken in AM with sips of water? 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 Female No 01/27/25 12:10 HX of Motion Sickness No 01/27/25 12:10 HX of N/V After Surgery No 01/27/25 12:10 Non-Smoker Yes 01/27/25 12:10 Duration of Surgery greater No 01/27/25 12:10 than 60 minutes Number of Risk Factors 1 01/27/25 12:10 PONV Score Low Risk 01/27/25 12:10 Height & Weight Height & Weight: Anesthesia: Height & Weight Height 6 ft 5 in 09/16/23 14:04 Respiratory Assessment Respiratory Assessment - theology teacher: Respiratory Tract Infection Hx - theology teacher Hx Respiratory Tract Infection No 01/27/25 12:10 STOP Sleep Apnea STOP Sleep Apnea - theology teacher: STOP Sleep Apnea - theology teacher Hx Hypertension Yes: CONTROLLED WITH MED 01/27/25 12:10 Hx Sleep Apnea Yes 01/27/25 12:10 CPAP Yes 01/27/25 12:10 BIPAP No 01/27/25 12:10 Do you snore loudly (louder than talking or can be heard Do you often feel tired/ fatigued/ sleepy during daytime? Has anyone observed you stop breathing during sleep? STOP Results Positive 01/27/25 12:10 QUESTION #5 FULL TEXT : Do you snore loudly (louder than talking or can be heard through closed doors)? 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 Specify any problems Hx of Preganancy in last 3 N/A 01/27/25 12:10 Months Nurse Filling Out Transfusion DSCHRIBER 01/27/25 12:10 & Questions: Date: 01/27/25 01/27/25 12:10 Time: 12:11 01/27/25 12:10 Patient unable to answer at this time (ie. confused, unrespo /Reproduction History /Reproductive History - theology teacher: /Reproductive Hx- theology teacher Hx Now No 01/27/25 12:10 Gestational Age (in weeks): EDC: Hx Hx Para Hx Section SAB No 01/27/25 12:10 PFS Medical History (Updated 01/27/25 @ 12:17 by Willow Phillips) Indwelling urethral catheter present Diabetes Wears glasses Wears contact lenses Cancer Anxiety Back pain Dietary restriction CPAP (continuous positive airway pressure) dependence Non-smoker History of echocardiogram History of stress test Cardiology follow-up encounter PFO (patent foramen ovale) Diverticulitis PFO with atrial septal aneurysm History of skin cancer Hypothyroidism Essential hypertension Asthma Exposure to COVID-19 virus Home Medications ?Medication ?Instructions ?Recorded ?Last Taken ?Type montelukast 10 mg tablet 10 mg PO QHS 03/21/21 09/15/23 21:01 History cholecalciferol (vitamin D3) 50 2,000 unit PO DAILY 09/15/21 09/15/23 History mcg (2,000 unit) tablet (Vitamin D3) metformin 500 mg tablet 500 mg PO QHS 09/15/21 09/15/23 21:00 History tamsulosin 0.4 mg capsule 0.4 mg PO QHS 06/13/22 09/15/23 21:00 History multivitamin 1 tab PO DAILY SUPPLEMENT 12/09/22 09/15/23 History zinc acetate 25 mg (zinc) capsule 30 mg PO DAILY SUPPLEMENT 12/09/22 09/15/23 History guaifenesin 600 mg tablet, 600 mg PO BID 05/09/23 09/16/23 09:00 History extended release 12 hr fluticasone 232mcg-salmeterol 1 inh inhalation BID asthma 05/10/23 09/15/23 History 14mcg/actuation breath act,powder sensor levothyroxine 75 mcg capsule 75 mcg PO DAILY 06/20/23 09/15/23 History losartan 100 mg tablet 100 mg PO QHS 06/20/23 09/15/23 21:00 History aspirin 81 mg capsule 81 mg PO DAILY 09/11/23 01/26/25 History atorvastatin 10 mg tablet (Lipitor) 10 mg PO QDAY 11/27/24 Unknown History albuterol sulfate 90 mcg/actuation 2 puff inhalation Q4H PRN PRN 01/27/25 Unknown History aerosol inhaler wheezing Allergy/AdvReac Type Severity Reaction Status Date / Time amoxicillin trihydrate (From Allergy Rash Verified 01/27/25 12:06 Augmentin) potassium clavulanate (From Allergy Rash Verified 01/27/25 12:06 Augmentin) Family History Mother Breast cancer Father Heart disease Cancer Kidney Surgical History S/P left inguinal hernia repair History of colonoscopy (~06/2023) History of esophagogastroduodenoscopy (EGD) History of hemorrhoidectomy History of orchiectomy, unilateral History of drainage of abscess H/O hernia repair Social History Smoking Status: Never smoker alcohol intake: never substance use type: does not use caffeine: No (Over the last 3 weeks) Audit: Pertinent Findings Pertinent Findings EKG Perinent findings: 12/09/22: NSR with occasional PVCs Stress test pertinent findings: 12/12/22: Perfusion SPECT analysis: Review of the stress images demonstrate normal uptake of tracer noted in all areas of the myocardium. The resting images similarly demonstrate normal uptake of tracer noted in all areas of the myocardium. No areas of reversibility are noted to suggest ischemia no previous infarct was noted. Gated SPECT analysis: The gated ejection fraction is 85%. Conclusion: Normal exercise myocardial perfusion stress test at a high workload Preserved ejection fraction. Echo (EF%) pertinent findings: 12/12/22: Interpretation Summary Hypermobile atrial septum. Normal LV size. Left ventricular systolic function is normal. The estimated ejection fraction is 65 %. Stage 1 diastolic dysfunction. Aneurysmal atrial septum. Patent foramen ovale. Contrast injection was performed. Additional pertinent findings: 12/27/22 carotid U/s: <50% stenosis bilaterally Recommendation Anesthesia Recommendation Anesthesia recommendation: OPTIMIZED for anesthesia
[2025-01-29] VITALS (8 sets, daily range): BP systolic 106–140; BP diastolic 52–75; PULSE 73–86; RESP 16–18; TEMP 35.9–36.9; O2SAT 93–95; BMI 34.1
[2025-01-29] MEDS: Lactated Ringers 1,000 ML 15 ML IV (08:56)
--- NOTE | 2025-01-29 09:27 | PRE.ANES_ITS ---
ASA Classification* ASA Classification ASA Classification: 2 Assessment & Plan Anesthesia* Anesthesia Assessment Anesthesia Assessment: Discussed sedation and/or anesthesia options, risks, benefits, and alternatives with patient/parents/legal guardian/POA. Questions invited. The patient/parents/legal guardian/POA seems to understand and agrees to proceed with anesthesia plan. Reviewed the physical assessment, medical history, allergy history and patient home medications list prior to surgery/procedure/anesthetic and documented any changes. Performed airway and anesthesia risk assessments. Anesthesia Type Anesthesia Type: MAC History Source History Obtained from:: Patient and Chart Anesthesia Focused Assessment* Temperature: 98.3 F Pulse Rate: 86 Blood Pressure: 140/75 Respiratory Rate: 18 Pulse Ox: 93 Oxygen Delivery Method: Room Air Airway Assessment Mouth opens: >3 cm Mallampati Score: IV Teeth Condition: Caps/Crowns (Tooth #8 is capped.) and Missing (Missing right upper molar.) Neck Range of motion (ROM): Limited ROM (Somewhat Decreased) Labs Anesthesia Preop lab: CBC WBC 4.7 K/mm3 (4.4-11.0) 11/26/24 09:45 11/26/24 RBC 4.65 M/mm3 (4.6-6.2) 11/26/24 09:45 11/26/24 Hgb 14.0 g/dL (13.0-16.5) 11/26/24 09:45 11/26/24 Hct 41.6 % (40-54) 11/26/24 09:45 11/26/24 Plt Count 235 K/mm3 (150-450) 11/26/24 09:45 11/26/24 CHEMISTRY Potassium 3.8 mmol/L (3.3-5.1) 11/26/24 09:45 11/26/24 Sodium 137 mmol/L (133-145) 11/26/24 09:45 11/26/24 Magnesium 1.8 mg/dL (1.6-2.6) 12/26/22 10:24 12/26/22 BUN 13 mg/dL (4-19) 11/26/24 09:45 11/26/24 Creatinine 0.90 mg/dL (0.70-1.20) 11/26/24 09:45 11/26/24 Glucose 119 mg/dL (70-99) H 11/26/24 09:45 11/26/24 POC Glucose 118 mg/dL (74-106) H 09/16/23 17:48 09/16/23 TSH 2.140 uIU/mL (0.300-4.200) 11/26/24 09:45 05/12/06 COAG PT 13.3 SECONDS (11.7-14.9) 12/29/17 13:24 Pre-Assessment Diagnosis/Proposed Procedure Planned Operative Procedure(s): CSCOPE Anesthesia History 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 When Was Last Pacemaker Check QUESTION #4 FULL TEXT: You/Your Family Experience fever (hyperthermia) with Anesthesia Last Oral Intake Last Oral intake: Last Oral Intake NPO since 05:30 01/29/25 08:46 Meds taken in AM with sips of No 01/29/25 08:46 water? Meds patient instructed to take am of surgery Any additional information?: Yes NPO since: 05:30 (Patient finished prep at 5:30 AM.) Meds taken in AM with sips of water?: No PONV PONV - machine operations supervisor: PONV - machine operations supervisor Female No 01/27/25 12:10 HX of Motion Sickness No 01/27/25 12:10 HX of N/V After Surgery No 01/27/25 12:10 Non-Smoker Yes 01/27/25 12:10 Duration of Surgery greater No 01/27/25 12:10 than 60 minutes Number of Risk Factors 1 01/27/25 12:10 PONV Score Low Risk 01/27/25 12:10 Height & Weight Height & Weight: Anesthesia: Height & Weight Height 6 ft 5 in 01/29/25 08:46 Weight: 130.5 kg 01/29/25 08:46 Body Mass Index (BMI) 34.1 01/29/25 08:46 Respiratory Assessment Respiratory Assessment - machine operations supervisor: Respiratory Tract Infection Hx - machine operations supervisor Hx Respiratory Tract Infection No 01/27/25 12:10 STOP Sleep Apnea STOP Sleep Apnea - machine operations supervisor: STOP Sleep Apnea - machine operations supervisor Hx Hypertension Yes: CONTROLLED WITH MED 01/27/25 12:10 Hx Sleep Apnea Yes 01/27/25 12:10 CPAP Yes 01/27/25 12:10 BIPAP No 01/27/25 12:10 Do you snore loudly (louder than talking or can be heard Do you often feel tired/ fatigued/ sleepy during daytime? Has anyone observed you stop breathing during sleep? STOP Results Positive 01/27/25 12:10 QUESTION #5 FULL TEXT : Do you snore loudly (louder than talking or can be heard through closed doors)? 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 Specify any problems Hx of Preganancy in last 3 N/A 01/27/25 12:10 Months Nurse Filling Out Transfusion DSCHRIBER 01/27/25 12:10 & Questions: Date: 01/27/25 01/27/25 12:10 Time: 12:11 01/27/25 12:10 Patient unable to answer at this time (ie. confused, unrespo /Reproduction History /Reproductive History - machine operations supervisor: /Reproductive Hx- machine operations supervisor Hx Now No 01/27/25 12:10 Gestational Age (in weeks): EDC: Hx Hx Para Hx Section SAB No 01/27/25 12:10 Active Medications Active Medications: Current Medications Generic Name Dose Route Start Last Admin Trade Name Freq PRN Reason Stop Dose Admin Lactated Ringer's 1,000 mls @ 15 mls/hr 01/29/25 08:45 01/29/25 08:56 IV 15 mls/hr .Q48H BONIFACIO Administration PFSH Medical History Indwelling urethral catheter present Diabetes Wears glasses Wears contact lenses Cancer Anxiety Back pain Dietary restriction CPAP (continuous positive airway pressure) dependence Non-smoker History of echocardiogram History of stress test Cardiology follow-up encounter PFO (patent foramen ovale) Diverticulitis PFO with atrial septal aneurysm History of skin cancer Hypothyroidism Essential hypertension Asthma Exposure to COVID-19 virus Home Medications ?Medication ?Instructions ?Recorded ?Last Taken ?Type montelukast 10 mg tablet 10 mg PO QHS 03/21/21 History cholecalciferol (vitamin D3) 50 2,000 unit PO DAILY 01/28/25 History mcg (2,000 unit) tablet (Vitamin D3) metformin 500 mg tablet 500 mg PO QHS 09/15/2101/28 History tamsulosin 0.4 mg capsule 0.4 mg PO QHS 06/13/2201/28 History multivitamin 1 tab PO DAILY SUPPLEMENT 01/28/25 History zinc acetate 25 mg (zinc) capsule 30 mg PO DAILY SUPPL EMENT 12/09/22 01/28/25 History guaifenesin 600 mg tablet, 600 mg PO BID 05/09/2301/12 History extended release 12 hr fluticasone 232mcg-salmeterol 1 inh inhalation BID ast hma 05/10/23 01/28/25 History 14mcg/actuation breath act,powder sensor levothyroxine 75 mcg capsule 75 mcg PO DAILY 06/20/23 01/28/25 History losartan 100 mg tablet 100 mg PO QHS 06/20/2301/28 History aspirin 81 mg capsule 81 mg PO DAILY 09/11/2301/12 History atorvastatin 10 mg tablet (Lipitor) 10 mg PO QDAY 11/1201/28/25 History albuterol sulfate 90 mcg/actuation 2 puff inhalation Q 4H PRN PRN 01/27/25 01/28/25 History aerosol inhaler wheezing Allergy/AdvReac Type Severity Reaction Status Date / Time amoxicillin trihydrate (From Allergy Rash Verified 01/29/25 08:43 Augmentin) potassium clavulanate (From Allergy Rash Verified 01/29/25 08:43 Augmentin) Family History Mother Breast cancer Father Heart disease Cancer Kidney Surgical History S/P left inguinal hernia repair History of colonoscopy (~06/2023) History of esophagogastroduodenoscopy (EGD) History of hemorrhoidectomy History of orchiectomy, unilateral History of drainage of abscess H/O hernia repair Social History Smoking Status: Never smoker alcohol intake: never substance use type: does not use caffeine: No (Over the last 3 weeks) Review of Systems (Anesthesia) ROS Narrative System reviewed and no additional complaints, except as documented.
--- NOTE | 2025-01-29 09:30 | COLBX_PTH ---
PATIENT: TANI WILLIAMSON LOC: EN U#:[id number] AGE/SX: 69/M ROOM: RE01/29/[address]: Dr. Nadir Martines DO : 1955 BED: DIS: 01/29/2025 SPEC #: [id number] RECD: 01/29/25 11:34 STATUS: CHARISSA RESarah #: [id number] NATHALIE: 01/29/25 09:[address]: Nadir Martines DEPT: SURGICAL PATHOLOGY RECD BY: Vidya Cronin ENTERED: 01/29/25 15:09 SP TYPE: COLON BX OTHR DR: Dr. Shane Contreras MD Tissues: COLON BIOPSY Procedures: Surgery Specimen Level IV HEADER OPERATION: Colonoscopy and polypectomy PRE-OP DIAGNOSIS: Status post diverticulitis TISSUE SUBMITTED: A- Hepatic flexure polyp MICROSCOPIC DIAGNOSIS A. Hepatic flexure, colon, polyp, biopsy: - Tubular adenoma. MICROSCOPIC DESCRIPTION Slides are reviewed. GROSS DESCRIPTION A. Received in fixative is one container labeled with the patient's name and designated Hepatic flexure polyp. The specimen consists of one irregular fragment of light kiran soft tissue that measures 0.2 x 0.2 x 0.1 cm. The specimen is totally submitted in one cassette. MS/mr 01/29/2025 CPT:47191
--- NOTE | 2025-01-29 10:07 | PCM.HP.STD ---
HPI - General General Date of Admission: 01/29/25 Date of Service: 01/29/25 Chief Complaint: Diverticulitis HPI Narrative TANI WILLIAMSON, is a 69 M who presents with a chief Complaint: Diverticulitis Pt reports hx diverticulitis. Had an episode that started last weekend with LLQ abd pain. Treated with Cipro, Flagyl and a clear liquid diet for 4 days. Sx have improved. No longer having pain but feels lousy. Has moved to a soft diet. Pt states last episode before this was a year and a half ago. Last colonoscopy was 06/[address] Gerber. Has follow up questions. [facility] Medical History Indwelling urethral catheter present Diabetes Wears glasses Wears contact lenses Cancer Anxiety Back pain Dietary restriction CPAP (continuous positive airway pressure) dependence Non-smoker History of echocardiogram History of stress test Cardiology follow-up encounter PFO (patent foramen ovale) Diverticulitis PFO with atrial septal aneurysm History of skin cancer Hypothyroidism Essential hypertension Asthma Exposure to COVID-19 virus Home Medications ?Medication ?Instructions ?Recorded ?Last Taken ?Type montelukast 10 mg tablet 10 mg PO QHS 03/21/21 01/28/25 History cholecalciferol (vitamin D3) 50 2,000 unit PO DAILY 09/15/21 01/28/25 History mcg (2,000 unit) tablet (Vitamin D3) metformin 500 mg tablet 500 mg PO QHS 09/15/21 01/28/25 History tamsulosin 0.4 mg capsule 0.4 mg PO QHS 06/13/22 01/28/25 History multivitamin 1 tab PO DAILY SUPPLEMENT 12/09/22 01/28/25 History zinc acetate 25 mg (zinc) capsule 30 mg PO DAILY SUPPLEMENT 12/09/22 01/28/25 History guaifenesin 600 mg tablet, 600 mg PO BID 05/09/23 01/28/25 History extended release 12 hr fluticasone 232mcg-salmeterol 1 inh inhalation BID asthma 05/10/23 01/28/25 History 14mcg/actuation breath act,powder sensor levothyroxine 75 mcg capsule 75 mcg PO DAILY 06/20/23 01/28/25 History losartan 100 mg tablet 100 mg PO QHS 06/20/23 01/28/25 History aspirin 81 mg capsule 81 mg PO DAILY 09/11/23 01/26/25 History atorvastatin 10 mg tablet (Lipitor) 10 mg PO QDAY 11/27/24 01/28/25 History albuterol sulfate 90 mcg/actuation 2 puff inhalation Q4H PRN PRN 01/27/25 01/28/25 History aerosol inhaler wheezing Allergy/AdvReac Type Severity Reaction Status Date / Time amoxicillin trihydrate (From Allergy Rash Verified 01/29/25 08:43 Augmentin) potassium clavulanate (From Allergy Rash Verified 01/29/25 08:43 Augmentin) Family History Mother Breast cancer Father Heart disease Cancer Kidney Surgical History S/P left inguinal hernia repair History of colonoscopy (~06/2023) History of esophagogastroduodenoscopy (EGD) History of hemorrhoidectomy History of orchiectomy, unilateral History of drainage of abscess H/O hernia repair Social History Smoking Status: Never smoker alcohol intake: never substance use type: does not use caffeine: No (Over the last 3 weeks) ROS Constitutional Constitutional: Denies fatigue, fever(s), poor appetite, weight gain or weight loss Gastrointestinal Gastrointestinal: Denies belching, bloating, change in bowel habits, change in stool character, chewing difficulty, coffee ground emesis, constipation, cramping, diarrhea, dyspepsia, dysphagia, early satiety, excessive flatus, fecal incontinence, heartburn, hematemesis, hematochezia, hemorrhoids, loose stools, melena, nausea, odynophagia, rectal bleeding, tenesmus, vomiting or weight changes Vital Signs Vital Signs Vital Signs: 01/29/25 08:46 01/29/25 08:46 01/29/25 09:51 Temperature 98.3 F 98.3 F Temperature Source Temporal Pulse Rate 86 86 Respiratory Rate 18 18 Respiratory Pattern Normal Blood Pressure 140/75 H 140/75 H Blood Pressure Mean 96 Blood Pressure Source Monitor Blood Pressure Position Semi-Fowlers Blood Pressure Location Right Arm Pulse Ox 93 93 Oxygen Delivery Method Room Air Room Air Weight Weight: 287 lb 11.252 oz Body Mass Index (BMI) 34.1 Physical Exam Const alert, oriented x3, no apparent distress and healthy appearing General Appearance: cooperative GI normal to inspection, nondistended, normoactive bowel sounds, soft to palpation, non-tender and non-distended Percussion: normal to percussion Rectal Exam: deferred Results Lab / Micro Data Labs: Laboratory Results - last 24 hr 01/29/25 08:53: POC Glucose 142 H Assessment & Plan Assessment/Plan (1) Diverticulosis: QUALIFIERS: Diverticulosis site: diverticulosis of large intestine Diverticulosis bleeding: diverticulosis with bleeding Qualified Code(s): K57.31 - Diverticulosis of large intestine without perforation or abscess with bleeding (2) Diverticulitis: PLAN: Assessment and Plan Assessment and Plan (1) Diverticulitis: Status: Acute Plan: Patient notes he has a history of acute diverticulitis and GI bleed which he was treated for A few years ago. He was concerned that he may have a recurrent episode of diverticulitis. He has been having left lower quadrant pain and put himself on ciprofloxacin and Flagyl. He also put himself on a clear liquid diet. He has progressed to a soft diet. He still has some antibiotics to finish his 14 days of therapy. Patient denies fever. The patient states that 6 weeks ago he had some vague left abdominal pain. I saw him for abdominal pain in the hospital. At that time he presented to the emergency room was admitted placed on IV Cipro metronidazole for 48 hours then home on the same and the bleeding had stopped and he was coming back to feeling normal. CT scan suggested some possible mesenteritis or sclerosing mesenteritis. He was discharged on mesalamine 2.5 mg orally twice daily. He has not fevers chills sweats nausea vomiting no recurrent bright red blood per rectum or melena he is having some tenesmus however. Has not had any weight loss that he notes. He is feeling a lot better. I told him we would have to get a colonoscopy 4 to 6 weeks after he is finished antibiotics and he was okay with that plan. 1. AGA suggests that antibiotics should be used selectively, rather than routinely, in patients with acute uncomplicated diverticulitis. 2. AGA suggests that colonoscopy be performed after resolution of acute diverticulitis in appropriate candidates to exclude the misdiagnosis of a colonic neoplasm if a high-quality examination of the colon has not been recently performed. 3. AGA suggests against elective colonic resection in patients with an initial episode of acute uncomplicated diverticulitis. The decision to perform elective prophylactic colonic resection in this setting should be individualized. 4. AGA suggests a fiber-rich diet or fiber supplementation in patients with a history of acute diverticulitis. 5. AGA suggests against routinely advising patients with a history of diverticulitis to avoid consumption of seeds, nuts and popcorn. 6. AGA suggests against routinely advising patients with a history of diverticulitis to avoid the use of aspirin. 7. AGA suggests advising patients with a history of diverticulitis to avoid the use of nonaspirin NSAIDs if possible. 8. AGA recommends against the use of mesalamine after acute uncomplicated diverticulitis. 9. AGA suggests against the use of rifaximin after acute uncomplicated diverticulitis. 10. AGA suggests against the use of probiotics after acute uncomplicated diverticulitis. 11. AGA suggests advising patients with diverticular disease to consider vigorous physical activity.
--- NOTE | 2025-01-29 10:42 | OP.COLON_ITS ---
Patient Name: Jeromy Gutierrez Procedure Date: 01/29/2025 10:12 AM Date of : 1955 Age: 69 Procedure: Colonoscopy Indications: Screening for colorectal malignant neoplasm Providers: Nadir Martines DO Medicines: Monitored Anesthesia Care Patient Profile: This is a 69 year old male. Refer to note in patient chart for documentation of history and physical. Last Colonoscopy: several years ago. Complications: No immediate complications. Procedure: Pre-Anesthesia Assessment: - Prior to the procedure, a History and Physical was performed, and patient medications and allergies were reviewed. The patient is competent. The risks and benefits of the procedure and the sedation options and risks were discussed with the patient. All questions were answered and informed consent was obtained. Patient identification and proposed procedure were verified by the physician in the pre-procedure area. Mental Status Examination: alert and oriented. Airway Examination: normal oropharyngeal airway and neck mobility. Respiratory Examination: clear to auscultation. CV Examination: normal. Prophylactic Antibiotics: The patient does not require prophylactic antibiotics. Prior Anticoagulants: The patient has taken no anticoagulant or antiplatelet agents except for NSAID medication. ASA Grade Assessment: II - A patient with mild systemic disease. After reviewing the risks and benefits, the patient was deemed in satisfactory condition to undergo the procedure. The anesthesia plan was to use general anesthesia. Immediately prior to administration of medications, the patient was re-assessed for adequacy to receive sedatives. The heart rate, respiratory rate, oxygen saturations, blood pressure, adequacy of pulmonary ventilation, and response to care were monitored throughout the procedure. The physical status of the patient was re-assessed after the procedure. After I obtained informed consent, the scope was passed under direct vision. Throughout the procedure, the patient's blood pressure, pulse, and oxygen saturations were monitored continuously. The Colonoscope was introduced through the anus and advanced to the cecum, identified by appendiceal orifice and ileocecal valve. The colonoscopy was performed without difficulty. The patient tolerated the procedure well. The quality of the bowel preparation was adequate. The ileocecal valve, appendiceal orifice, and rectum were photographed. Scope In: 10:21:32 AM Scope Withdrawal Time 0 hours 9 minutes 15 seconds Scope Out: 10:37:57 AM Total Procedure Duration Time 0 hours 16 minutes 25 seconds Findings: The perianal and digital rectal examinations were normal. Multiple small and large-mouthed diverticula were found in the entire colon. A 4 mm polyp was found in the ascending colon. The polyp was sessile. The polyp was removed with a jumbo cold forceps. Resection and retrieval were complete. Verification of patient identification for the specimen was done. Estimated blood loss was minimal. Non-bleeding internal hemorrhoids were found during retroflexion. The hemorrhoids were Grade I (internal hemorrhoids that do not prolapse). Impression: - Diverticulosis in the entire examined colon. - One 4 mm polyp in the ascending colon, removed with a jumbo cold forceps. Resected and retrieved. - Non-bleeding internal hemorrhoids. Recommendation: - Repeat colonoscopy in 5 years for surveillance. - Return to GI office in 1 week. - Continue present medications. Procedure Code(s): --- Professional --- 52632, Colonoscopy, flexible; with biopsy, single or multiple CPT copyright 2021 [employer]. All rights reserved. The codes documented in this report are preliminary and upon internet sales director review may be revised to meet current compliance requirements. Nadir Martines DO 01/29/2025 10:42:20 AM This report has been signed electronically. Number of Addenda: 0 Note Initiated On: 01/29/2025 10:12 AM
--- NOTE | 2025-01-29 10:42 | OP.CCLET_ITS ---
01/29/2025 Shane Contreras MD [address] [place] [address] Re : Colonoscopy procedure for Jeromy Brenda Dear Dr. Contreras This procedure was performed on Wednesday, January 29, 2025. My impressions and recommendations are as follows: Impressions : - Diverticulosis in the entire examined colon. - One 4 mm polyp in the ascending colon, removed with a jumbo cold forceps. Resected and retrieved. - Non-bleeding internal hemorrhoids. Recommendations : - Repeat colonoscopy in 5 years for surveillance. - Return to GI office in 1 week. - Continue present medications. My findings are described in the full procedure note, which is enclosed. If I can be of further assistance, please feel free to contact me at . Sincerely, Nadir Martines, 01/29/2025 10:42:20 AM This report has been signed electronically.
--- NOTE | 2025-01-29 10:45 | PCM.POST.ANE ---
Anesthesia: Postop Eval I Current Vital Signs Temperature: 97 F Pulse Rate: 74 Blood Pressure: 119/52 Respiratory Rate: 16 Pulse Ox: 95 Oxygen Delivery Method: Room Air Assessment Airway patent: Yes Spontaneous unlabored respirations: Yes Mental status: Awake and Calm nausea: No Vomiting: No Anesthesia Complication: No Fluid Hydration Crystalloid volume administer (ml): 500 Total IV fluid infused: 500 Progress Note Anesthesia document: Postop Eval 1 completed: Yes
--- NOTE | 2025-01-29 12:19 | PCM.POSTANE2 ---
Anesthesia Postop Eval I Sum Postop Eval Completion status Anesthesia document: Postop Eval 1 completed: Yes Anesthesia Postop Eval I Summary Anesthesia Postop Eval I Summary: Anesthesia Postop Eval I: Assessment Summary Airway patent Yes 01/29/25 10:46 [email or web address] Spontaneous unlabored Yes 01/29/25 10:46 [email or web address] respirations Mental status Awake,Calm 01/29/25 10:46 [email or web address] nausea No 01/29/25 10:46 [email or web address] Vomiting No 01/29/25 10:46 [email or web address] Anesthesia Postop Eval I: Fluid Summary Crystalloid volume administer 500 01/29/25 10:46 [email or web address] (ml) Colloids volume administered ( ml) Blood Product volume administered (ml) Total IV fluid infused 500 01/29/25 10:46 [email or web address] Anesthesia Postop Eval I: Summary Notes Anesthesia Complication No 01/29/25 10:46 [email or web address] Anesthesia Complication Comment: Post-operative progress note Anesthesia: Postop Eval II Evaluation Mental status: Awake and Calm Pain Level: 0 nausea: No Vomiting: No Complications Anesthesia Complication: No
--- NOTE | 2025-01-29 14:18 | PCM.POSTANE2 ---
Anesthesia Postop Eval I Sum Postop Eval Completion status Anesthesia document: Postop Eval 1 completed: Yes Anesthesia Postop Eval I Summary Anesthesia Postop Eval I Summary: Anesthesia Postop Eval I: Assessment Summary Airway patent Yes 01/29/25 10:46 [email or web address] Spontaneous unlabored Yes 01/29/25 10:46 [email or web address] respirations Mental status Awake,Calm 01/29/25 12:20 nausea No 01/29/25 12:20 Vomiting No 01/29/25 12:20 Anesthesia Postop Eval I: Fluid Summary Crystalloid volume administer 500 01/29/25 10:46 [email or web address] (ml) Colloids volume administered ( ml) Blood Product volume administered (ml) Total IV fluid infused 500 01/29/25 10:46 [email or web address] Anesthesia Postop Eval I: Summary Notes Anesthesia Complication No 01/29/25 12:20 Anesthesia Complication Comment: Post-operative progress note Anesthesia: Postop Eval II Evaluation Mental status: Awake Pain Level: 0 nausea: Yes Vomiting: Yes
== END 2025-01-29 11:38 | disposition home or self-care (01) ==
LOC: EN 08:20 → AC 08:24
PROVIDERS: PCP Family Medicine; Referring Provider Family Medicine; Visit Provider Internal Medicine Gastroenterology
PROC: 0DJD8ZZ Inspection of Lower Intestinal Tract, Via Natural or Artificial Opening Endoscopic (ICD-10-PCS; CPT 45378; principal; 2025-01-29 09:25)
DX: Z12.11 Encounter for screening for malignant neoplasm of colon (principal); E11.9 Type 2 diabetes mellitus without complications; K64.0 First degree hemorrhoids; K57.30 Diverticulosis of large intestine without perforation or abscess without bleeding; I10 Essential (primary) hypertension; D12.3 Benign neoplasm of transverse colon; E03.9 Hypothyroidism, unspecified; J45.909 Unspecified asthma, uncomplicated; Z79.82 Long term (current) use of aspirin; Z79.84 Long term (current) use of oral hypoglycemic drugs; Z87.19 Personal history of other diseases of the digestive system
CPT/HCPCS: 45380; 82962; 88305; J2405

== ENCOUNTER → 2025-02-24 | Outpatient (CLI) | payer MEDICARE, OTHER, SELFPAY ==
[2025-02-24 14:00] LABS: Creatinine, Urine (random) 48.30 mg/dL (39.00-259.00); Microalbumin,Random Urine < 12.0 mg/L (<20 mg/L)
--- OUTSIDE RECORDS SUMMARY | 2025-02-24 19:23 | XMS RPT_ITS | CCD ---
Author Organization [facility] InformFormerly [facility] Care Team Providers Care Corporate Lawyer Name Role Phone MARILOU FRANK Attending Unavailable SHANE CONTRERAS Primary Care Unavailable Ugo BEATTY, Colby Esteban Unavailable Sebastian Abbott MD Unavailable Unavailable Primary Care Provider UnavailDr. Shane Oseguera Primary Care Provider Dr. Shane Contreras Referring Provider Dr. Tara Vargas Attending Provider Dr. Shane Contreras Primary Care Provider Dr. Shane Contreras Referring Provider HERBIE Morrison Attending Provider Dr. Shane Contreras Primary Care Provider Dr. Shane Contreras Referring Provider HERBIE Morrison Attending Provider Dr. Shane Contreras Primary Care Provider Dr. Emery Estrada Attending Provider Dr. Shane Contreras Referring Provider Dr. All Gerber Attending Provider Shane Contreras MD Primary Care Provider DANE PRUITT Attending EMERY Carnes Referring Unavailable SHANE CONTRERAS Primary Care Unavailable Dr. Shane Contreras Primary Care Provider Dr. Shane Contreras Referring Provider HERBIE Venegas Attending Provider MD Calvin Guzman Emergency Provider Dr. Woodrow Fox Admit Provider Dr. Woodrow Fox Attending Provider Dr. Woodrow Fox Other Provider Dr. Todd Conner Attending Provider Dr. Todd Conner Other Provider Dr. Nadir Martines Attending Provider Dr. Shane Contreras Primary Care Provider Dr. Shane Contreras Referring Provider HERBIE Venegas Attending Provider MD Calvin Guzman Emergency Provider Dr. Woodrow Foxit Provider Dr. Woodrow Fox Attending Provider Dr. Woodrow Fox Other Provider Dr. Todd Conner Attending Provider Dr. Tdod Conner Other Provider Dr. Nadir Martines Attending Provider Dr. All Gerber Attending Provider Dr. All Gerber Other Provider Dr. Shane Contreras Primary Care Provider Dr. Shane Contreras Referring Provider Dr. All Gerber Referring Provider HILARIO Medina Attending Provider Dr. Romain Fox Attending Provider Dr. Shane Contreras MD Primary Care Provider Dr. Shane oCntreras MD Attending Provider Dr. Shane Contreras MD Referring Provider Friend , Dr. Schmitz Attending Provider Diane BEATTY, Dr. Lynn Primary Care Provider Diane BEATTY, Dr. Lynn Attending Provider Diane BEATTY, Dr. Lynn Referring Provider [phone] Friend , Dr. Schmitz Other Provider Shane Contreras Attending Unavailable Contreras, Shane Referring Unavailable Contreras, Shane Primary Care Unavailable Friend, Nadir Attending Unavailable Contreras, Shane Referring Unavailable Contreras, Shane Primary Care Unavailable Contreras, Shane Referring Unavailable Contreras, Shane Primary Care Unavailable Friend, Nadir Consulting Unavailable Friend, Nadir Attending Unavailable Friend, Nadir Attending Unavailable Contreras, Shane Referring Unavailable Contreras, Shane Primary Care Unavailable Sibilia, All Smith Attending Unavailable Contreras, Shane Primary Care Unavailable Sibilia, All V Referring Unavailable Contreras, Shane Attending Unavailable Contreras, Shane Referring Unavailable Contreras, Shane Primary Care Unavailable Contreras, Shane Attending Unavailable Contreras, Shane Referring Unavailable Contreras, Shane Primary Care Unavailable Contreras, Shane Attending Unavailable Contreras, Shane Referring Unavailable Contreras, Shane Primary Care Unavailable Allergies Allergy Classification Reported Allergen(s) Allergy Type Date of Onset Reaction(s) Facility (4 sources) Amoxicillin / Clavulanate Drug Allergy 2 [facility] Work Phone: (20 sources) Amoxicillin; Translations: [amoxicillin trihydrate] Drug Allergy 2 [facility] (20 sources) potassium clavulanate; Translations: [potassium clavulanate] Allergy to substance 2 [facility] (1 source) Amoxicillin / Clavulanate Drug Allergy 3 [facility] Medications Current Medications Medication Drug Class(es) Dates Sig (Normalized) Sig (Original) [id number] 200 actuat albuterol 0.09 mg/actuat metered dose inhaler (20 sources) beta2-Adrenergic Agonist Start: 01-27-2025 Albuterol Sulfate 90 mcg/actuation HFA aerosol inhaler Active 2 NMA INHALATION EVERY 4 HOURS NEEDED as needed for wheezing January 27, 2025 12:00am Start: 06-13-2022 End: 09-09-2023 Albuterol Sulfate 90 mcg/act uation HFA aerosol inhaler Discontinued 2 NMA INHALATION EVERY 6 HOURS as needed for . June 13, 2022 1:00am September 09, 2023 10:00pm Start: 06-13-2022 End: 09-09-2023 take 1 puff(s) by inhalation every six hours Albuterol Sulfate Discontinued 2 PUFF INHALATION EVERY 6 HOURS June 13, 2022 12:00am September 09, 2023 9:00pm Start: 03-21-2021 End: 09-15-2021 Albuterol Sulfate 90 mcg/act uation HFA aerosol inhaler Discontinued 2 NMA INHALATION EVERY 6 HOURS as needed for sob March 21, 2021 12:00am September 15, 2021 1:58pm Start: 03-21-2021 End: 09-15-2021 Albuterol Sulfate Discontinu ed 2 INH INHALATION EVERY 6 HOURS March 20, 2021 11:00pm September 15, 2021 12:58pm aspirin 81 mg oral tablet (20 sources) Platelet Aggregation Inhibitor, Nonsteroidal Anti-inflammatory Drug Start: 09-11-2023 take 1 capsule by mouth once daily Aspirin 81 mg capsule Active 81 mg PO DAILY September 11, 2023 1:00am Start: 12-17-2022 Aspirin (Adult Low Dose Aspirin) 81 mg tablet,delayed release (DR/EC) Active 81 MG PO DAILY December 16, 2022 11:00pm On Hold: Resume on 05/14/23. Start: 08-31-2021 End: 09-15-2021 take 1 capsule by mouth once daily Aspirin 81 mg Capsule Discontinued 81 mg PO DAILY August 31, 2021 1:00am September 15, 2021 1:58pm atorvastatin 10 mg oral tablet (3 sources) HMG-CoA Reductase Inhibitor Start: 11-27-2024 take 1 tablet by mouth once daily Atorvastatin (Lipitor) 10 mg tablet Active 10 mg PO daily November 27, 2024 12:00am cholecalciferol 0.05 mg oral tablet (20 sources) Vitamin D Start: 09-15-2021 take 1 tablet by mouth once daily Cholecalciferol (Vitamin D3) (Vitamin D3) 50 mcg (2,000 unit) tablet Active 2000 U PO DAILY September 15, 2021 1:52pm Start: 09-14-2021 End: 09-15-2021 take 1 tablet by mouth once daily Cholecalciferol (Vitamin D3) (Vitamin D3) 50 mcg (2,000 unit) tablet Discontinued 4000 U PO DAILY September 14, 2021 3:44pm September 15, 2021 1:53pm Start: 03-21-2021 End: 09-14-2021 take 1 tablet by mouth once daily Cholecalciferol (Vitamin D3) (Vitamin D3) 50 mcg (2,000 unit) Tablet Discontinued 50 ug PO DAILY March 21, 2021 12:00am September 14, 2021 3:46pm Cholecalciferol (Vitamin D3) 50 MCG (2000 UT) Chew Tab Chew 1 tablet daily. 0 Active Fluticasone Furoate (20 sources) Corticosteroid Start: 03-21-2021 take 200 ug by inhalation at bedtime Fluticasone Furoate (Arnuity Ellipta) 200 mcg/actuation blister with device Active 1 INH INHALATION AT BEDTIME March 21, 2021 3:29pm Start: 03-21-2021 End: 06-13-2022 take 200 ug by inhalation at bedtime Fluticasone Furoate (Arnuity Ellipta) 200 mcg/actuation blister with device Discontinued 1 NMA INHALATION AT BEDTIME March 21, 2021 12:00am June 13, 2022 8:10am Start: 03-21-2021 End: 06-13-2022 take 200 ug by inhalation at bedtime Fluticasone Furoate (Arnuity Ellipta) 200 mcg/actuation blister with device Discontinued 1 INH INHALATION AT BEDTIME March 21, 2021 12:00am June 13, 2022 8:10am Start: 03-21-2021 End: 06-13-2022 take 200 ug by inhalation at bedtime Fluticasone Furoate (Arnuity Ellipta) 200 mcg/actuation blister with device Discontinued 1 INH INHALATION AT BEDTIME March 20, 2021 11:00pm June 13, 2022 7:10am Start: 03-21-2021 take 200 ug by inhal ation at bedtime Fluticasone Furoate (Arnuity Ellipta) 200 mcg/actuation blister with device Active 1 INH INHALATION AT BEDTIME March 20, 2021 11:00pm Start: 03-21-2021 take 200 ug by inhal ation at bedtime Fluticasone Furoate (Arnuity Ellipta) 200 mcg/actuation blister with device Active 1 INH INHALATION AT BEDTIME March 21, 2021 12:00am ARNUITY ELLIPTA 200 MCG/ACT AEPB 1 puff as directed once a day as needed fluticasone furoate [id number] Alexus Duecker AT 61 actuat fluticasone propionate 0.232 mg/actuat / salmeterol xinafoate 0.014 mg/actuat dry powder inhaler (1 source) Corticosteroid, beta2-Adrenergic Agonist take 1 puff(s) by inhalation twice daily Fluticasone-Salmeterol 232-14 MCG/ACT Aerosol Powder, breath activated Inhale 1 puff 2 times daily. 0 Active Fluticasone Propion-Salmetero l (7 sources) Start : 05-10 Fluticasone Propion-Salmeterol 232-14 mcg/actuation aero powdr breath act w/sensor Active 1 NMA INHALATION TWICE A DAY May 10, 2023 12:00am asthma Start: 05-10-2023 Fluticasone Pr opion-Salmeterol 232-14 mcg/actuation aero powdr breath act w/sensor Active 1 NMA INHALATION TWICE A DAY May 10, 2023 12:00am Start: 05-10-2023 Fluticasone Pr opion-Salmeterol Active 1 INH INHALATION TWICE A DAY May 09, 2023 11:00pm Start: 05-10-2023 Fluticasone Pr opion-Salmeterol Active 1 INH INHALATION TWICE A DAY May 10, 2023 12:00am 12 hr guaiFENesin 600 mg extended release oral tablet (20 sources) Start: 05-09-2023 take 1 tablet by mouth twice daily Guaifenesin 600 mg tablet extended release 12hr Active 600 mg PO TWICE A DAY May 09, 2023 12:00am Start: 05-09-2023 take 600 mg by mouth twice daily Guaifenesin Active 600 MG PO TWICE A DAY May 08, 2023 11:00pm Start: 09-15-2021 End: 06-13-2022 take 1 tablet by mouth once daily Guaifenesin 1,200 mg tablet extended release 12hr Discontinued 1200 mg PO DAILY September 15, 2021 1:00am June 13, 2022 8:09am take 1 tablet by arcenio twice daily guaiFENesin 600 MG Tab SR 12 HR tablet SR Take 1 tablet by mouth Twice daily. 0 Active take 3 tablets by mo [facility] once daily GUAIFENESIN 400 MG TABS 3 tablet by mouth once a day guaifenesin [id number] Alexus CORONA levothyroxine sodium 0.075 mg oral capsule (20 sources) l-Thyroxine Start: 06-20-2023 take 1 capsule by mouth once daily Levothyroxine 75 mcg capsule Active 75 ug PO DAILY June 20, 2023 1:00am Start: 12-21-2022 take 1 tablet by arcenio once daily, then take 1 tablet by mouth once daily Levothyroxine 75 MCG tablet Take 1 tablet by mouth daily. 1 tablet daily on weekends 0 12/21/2022 Active Start: 09-15-2021 End: 11-27-2024 Levothyroxine 50 mcg tablet Discontinued 50 ug PO DAILY December 17, 2022 1:17pm November 27, 2024 3:29pm 50 mcg M-F, 75 mcg on Sat/Sun take 1 capsule by mo [facility] once daily LEVOTHYROXINE SODIUM 50 MCG CAPS 1 capsule by mouth once a day levothyroxine [id number] Alexus CORONA losartan potassium 100 mg oral tablet (20 sources) Angiotensin 2 Receptor Stacey Start: 12-23-2022 End: 06-20-2023 take 1 tablet by mouth at bedtime Losartan 100 mg tablet Active 100 mg PO AT BEDTIME June 20, 2023 1:00am Start: 12-17-2022 End: 12-23-2022 take 1 tablet by mouth once daily Losartan 50 mg tablet Discontinued 50 mg PO DAILY December 17, 2022 12:00am December 23, 2022 9:43am metFORMIN hydrochloride 500 mg oral tablet (20 sources) Biguanide Start: 09-15-2021 take 1 tablet by mouth at bedtime Metformin 500 mg tablet Active 500 mg PO AT BEDTIME September 15, 2021 1:00am take 1 tablet by mouth once hellen y METFORMIN HCL ER 500 MG [id number] 1 tablet by mouth once a day metformin [id number] Alexus Coburn AT montelukast 10 mg oral tablet (20 sources) Leukotriene Receptor Antagonist Start: 03-21-2021 take 1 tablet by mouth at bedtime Montelukast 10 mg tablet Active 10 mg PO AT BEDTIME March 21, 2021 12:00am Multiple Vitamins-Minerals (MULTIVIT/MULTIMINE RAL ADULT PO) (1 source) take 1 tablet by mouth once daily Multiple Vitamins-Minerals (MULTIVIT/MULTIMIN ERAL ADULT PO) Take 1 tablet by mouth daily. 0 Active Multivitamin (Multiple Vitamins) 1 EACH tablet (19 sources) Start: 12-29-2017 take 1 tablet by mouth once daily Multivitamin (Multiple Vitamins) 1 EACH tablet Active 1 EACH PO DAILY December 29, 2017 1:29pm Start: 12-29-2017 End: 06-13-2022 take 1 tablet by mouth once daily Multivitamin (Multiple Vitamins) 1 EACH tablet Discontinued 1 NMA PO DAILY December 29, 2017 12:00am June 13, 2022 8:09am Start: 12-29-2017 End: 06-13-2022 take 1 tablet by mouth once daily Multivitamin (Multiple Vitamins) 1 EACH tablet Discontinued 1 EACH PO DAILY December 29, 2017 12:00am June 13, 2022 8:09am Start: 12-29-2017 End: 06-13-2022 take 1 tablet by mouth once daily Multivitamin (Multiple Vitamins) 1 EACH tablet Discontinued 1 EACH PO DAILY December 28, 2017 11:00pm June 13, 2022 7:09am Start: 12-29-2017 take 1 tablet by arcenio th once daily Multivitamin (Multiple Vitamins) 1 EACH tablet Active 1 EACH PO DAILY December 28, 2017 11:00pm Start: 12-29-2017 take 1 tablet by arcenio th once daily Multivitamin (Multiple Vitamins) 1 EACH tablet Active 1 EACH PO DAILY December 29, 2017 12:00am Multivitamin preparation (12 sources) Start: 12-09-2022 take 1 tablet by mouth once daily Multivitamin Active 1 TABLET PO DAILY December 08, 2022 11:00pm Start: 12-09-2022 take 1 tablet by arcenio th once daily Multivitamin Active 1 TABLET PO DAILY December 09, 2022 12:00am take 1 tablet by arcenio th once daily MULTI-VITAMINS TABS 1 tablet by mouth once a day multivitamin [id number] Alexus Coburn AT Multivitamin Tablet (3 sources) Start: 12-09-2022 Multivitamin T ablet Active 1 {tbl} PO DAILY December 09, 2022 12:00am SUPPLEMENT Start: 12-09-2022 Multivitamin T ablet Active 1 {tbl} PO DAILY December 09, 2022 12:00am Nirmatrelvir-Ritonavir (4 sources) Start: 06-13-2022 Nirmatrelvir-R itonavir (Paxlovid (Eua)) 300 mg (150 mg x 2)-100 mg tablets,dose pack Active 0 PO .COMPLEX June 13, 2022 1:00am take TWO 150 mg tablets of nirmatrelvir w/ ONE 100 mg tablet of ritonavir twice daily x5 days PO (pt aware to avoid fluticasone while taking) Start: 06-13-2022 Nirmatrelvir-R itonavir (Paxlovid (Eua)) 300 mg (150 mg x 2)- 100 mg tablets,dose pack Active 0 PO .COMPLEX June 13, 2022 12:00am take TWO 150 mg tablets of nirmatrelvir w/ ONE 100 mg tablet of ritonavir twice daily x5 days PO (pt aware to avoid fluticasone while taking) oxyCODONE hydrochloride 5 mg oral tablet (1 source) Opioid Agonist Start: 10-02-2021 End: 10-09-2021 take 1 tablet by mouth every six hours as needed for pain OXYCODONE HCL 5 MG TABS Take 1 tablet by mouth every six hours as needed for pain oxycodone [id number] Sebastian Abbott MD oxymetazoline hydrochloride 0.5 mg/ml nasal spray (6 sources) Start: 12-09-2022 Oxymetazoline (Afrin (Oxymetazoline)) 0.05 % [place],Non-Aerosol Active 2 SPRAY INTRANASAL Q12H December 08, 2022 11:00pm Start: 12-09-2022 Oxymetazoline (Afrin (Oxymetazoline)) 0.05 % [place],Non- Aerosol Active 2 SPRAY INTRANASAL AT BEDTIME December 09, 2022 12:00am pantoprazole 20 mg delayed release oral tablet (1 source) Proton Pump Inhibitor Start: 02-04-2023 take 1 tablet by mouth once daily pantoprazole [address] tablet DR Take 1 tablet by mouth daily. 0 02/04/2023 Active polyethylene glycol [id number] [id number] mg / potassium chloride 2970 mg / sodium bicarbonate 6740 mg / sodium chloride 5860 mg / sodium sulfate 89881 mg powder for oral solution (1 source) Osmotic Laxative Start: 06-20-2023 take 4000 mL by mouth once Peg 3350-Electrolytes Active 4000 ML PO ONCE 4000 June 20, 2023 12:00am until fecal effluent is clear; do not exceed a total volume of 4000 mL tamsulosin hydrochloride 0.4 mg oral capsule (16 sources) alpha-Adrenergic Stacey Start: 06-13-2022 take 1 capsule by mouth at bedtime Tamsulosin 0.4 mg capsule Active 0.4 mg PO AT BEDTIME June 13, 2022 1:00am vitamin b12 0.5 mg oral tablet (1 source) Vitamin B12 take 1 tablet by mouth once daily Cyanocobalamin (B-12) 500 MCG tablet Take 1 tablet by mouth daily. 0 Active zinc acetate 25 mg oral capsule (15 sources) Start: 12-09-2022 Zinc Acetate 25 mg (zinc) Capsule Active 30 mg PO DAILY December 09, 2022 12:00am SUPPLEMENT Start: 12-09-2022 take 30 mg by mouth once daily Zinc Acetate Active 30 MG PO DAILY December 08, 2022 11:00pm take 1 capsule by mouth once pratik ly zinc acetate 25 mg (zinc) capsule 1 capsule by mouth once a day zinc acetate Alexus Coburn AT Completed/Discontinued Medications Medication Drug Class(es) Dates Sig (Normalized) Sig (Original) acetaminophen 325 mg / HYDROcodone bitartrate 5 mg oral tablet (7 sources) Opioid Agonist Start: 09-16-2023 End: 10-04-2023 Hydrocodone-Acetami nophen 5-325 mg tablet Discontinued 1 {tbl} PO EVERY 6 HOURS as needed for pain 15 4 0 September 18, 2023 September 21, 2023 1:00am September 22, 2023 1:05am Recurrent left inguinal hernia Unilateral inguinal hernia, without obstruction or gangrene, recurrent Start: 09-16-2023 take 1 tablet by arcenio th every six hours Hydrocodone-Acetaminophen Active 1 TABLE T PO EVERY 6 HOURS 10 September 16, 2023 ciprofloxacin 500 mg oral tablet (7 sources) Quinolone Antimicrobial Start: 05-11-2023 End: 06-20-2023 take 1 tablet by mouth twice daily Ciprofloxacin Hcl 500 mg tablet Discontinued 500 mg PO TWICE A DAY 24 0 May 11, 2023 12:00am June 20, 2023 1:58pm clindamycin 300 mg oral capsule (2 sources) Lincosamide Antibacterial Start: 10-02-2021 take 1 capsule by mouth every eight hours CLINDAMYCIN HCL 300 MG CAPS Take 1 capsule by mouth every eight hours Eat yogurt daily while taking this antibiotic clindamycin hcl [id number] Sebastian Abbott MD 12 hr dextromethorphan hydrobromide 60 mg / guaiFENesin 1200 mg extended release oral tablet (11 sources) Uncompetitive S-tglnel-R-aspart ate Receptor Antagonist, Sigma-1 Agonist Start: 12-09-2022 End: 05-09-2023 take 60-1200 mg by mouth every twelve hours Dextromethorphan-Guaif enesin (Mucinex Dm) 60-1,200 mg Tablet Extended Release 12 Hr Discontinued 1 {tbl} PO DAILY December 09, 2022 12:00am May 09, 2023 8:35pm . docusate sodium 100 mg oral capsule (4 sources) Start: 09-09-2023 End: 11-27-2024 take 1 capsule by mouth twice daily Docusate Sodium (Colace) 100 mg capsule Discontinued 100 mg PO TWICE A DAY September 09, 2023 1:00am November 27, 2024 3:29pm doxycycline hyclate 100 mg oral capsule (4 sources) Tetracycline-clas s Drug Start: 09-13-2023 End: 10-04-2023 take 1 capsule by mouth twice daily Doxycycline Hyclate 100 mg capsule Discontinued 100 mg PO TWICE A DAY September 13, 2023 1:00am October 04, 2023 12:19pm hydroCHLOROthiazide 25 mg oral tablet (10 sources) Thiazide Diuretic Start: 12-23-2022 End: 05-09-2023 take 1 tablet by mouth once daily Hydrochlorothiazide 25 mg tablet Discontinued 25 mg PO DAILY December 23, 2022 12:00am May 09, 2023 8:37pm hydroCHLOROthiazide 12.5 mg / lisinopril 10 mg oral tablet (19 sources) Thiazide Diuretic, Angiotensin Converting Enzyme Inhibitor Start: 08-31-2021 End: 12-17-2022 Lisinopril-Hydrochloro thiazide 10-12.5 mg tablet Discontinued 1 {tbl} PO DAILY 30 August 31, 2021 1:00am December 17, 2022 1:20pm Start: 08-31-2021 End: 12-17-2022 take 1 tablet by mouth once daily Lisinopril-Hydrochlorothiazide Discontin ued 1 TABLET PO DAILY August 31, 2021 12:00am December 17, 2022 12:20pm hydrocortisone acetate 25 mg rectal suppository (19 sources) Corticosteroid Start: 12-30-2017 End: 03-18-2021 Hydrocortisone Acetate 25 MG suppository Discontinued 25 mg RECTAL TWICE A DAY 18 December 30, 2017 12:00am March 18, 2021 8:27am BID for 4 days and then twice daily PRN rectal bleeding lisinopril 10 mg oral tablet (4 sources) Angiotensin Converting Enzyme Inhibitor take 1 tablet by mouth once daily LISINOPRIL 10 MG TABS 1 tablet by mouth once a day lisinopril [id number] Alexus Coburn AT mecobalamin (8 sources) Start: 05-09-2023 End: 01-27-2025 take 1 tablet by mouth once daily Mecobalamin (Vitamin B12) 500 mcg tablet,chewable Discontinued 500 ug PO DAILY May 09, 2023 12:00am January 27, 2025 12:07pm Start: 05-09-2023 take 1 tablet by arcenio once daily Mecobalamin (Vitamin B12) 500 mcg tablet,chewable Active 500 ug PO DAILY May 09, 2023 12:00am Start: 05-09-2023 take 500 ug by mouth once daily Mecobalamin (Vitamin B12) Active 500 MCG PO DAILY May 08, 2023 11:00pm Start: 05-09-2023 take 500 ug by mouth once daily Mecobalamin (Vitamin B12) Active 500 MCG PO DAILY May 09, 2023 12:00am mesalamine 1200 mg delayed release oral tablet (7 sources) Aminosalicylate Start: 05-11-2023 End: 09-09-2023 take 2 tablets by mouth once daily Mesalamine 1.2 gram tablet,delayed release (DR/EC) Discontinued 2.4 g PO DAILY 112 56 0 May 11, 2023 12:00am September 09, 2023 10:01pm Start: 05-11-2023 End: 09-09-2023 take 2.4 g by mouth once daily Mesalamine Discontinued 2.4 GM PO DAILY 112 56 May 10, 2023 11:00pm September 09, 2023 9:01pm metroNIDAZOLE 500 mg oral tablet (7 sources) Nitroimidazole Antimicrobial Start: 05-11-2023 End: 06-20-2023 take 1 tablet by mouth every eight hours Metronidazole 500 mg tablet Discontinued 500 mg PO Q8H 36 0 May 11, 2023 12:00am June 20, 2023 2:03pm omeprazole 40 mg delayed release oral capsule (20 sources) Proton Pump Inhibitor Start: 12-09-2022 End: 06-20-2023 take 1 capsule by mouth once daily Omeprazole 40 mg Capsule,Delayed Release(Dr/Ec) Discontinued 40 mg PO DAILY December 09, 2022 12:00am June 20, 2023 2:01pm GERD Start: 08-31-2021 End: 06-13-2022 take 1 capsule by mouth once daily Omeprazole 20 mg Capsule,Delayed Release(Dr/Ec) Discontinued 20 mg PO DAILY August 31, 2021 1:00am June 13, 2022 8:09am rosuvastatin calcium 5 mg oral tablet (11 sources) HMG-CoA Reductase Inhibitor Start: 12-09-2022 End: 06-20-2023 take 1 tablet by mouth at bedtime Rosuvastatin 5 mg tablet Discontinued 5 mg PO AT BEDTIME December 09, 2022 12:00am June 20, 2023 2:03pm CHOLESTEROL triamcinolone acetonide 0.055 mg/actuat metered dose nasal spray (14 sources) Corticosteroid Start: 06-20-2023 End: 01-27-2025 Triamcinolone Acetonide (Nasacort) 55 mcg aerosol,spray Discontinued 1 NMA INTRANASAL TWICE A DAY June 20, 2023 2:02pm January 27, 2025 12:08pm administer into each nostril Start: 06-20-2023 take 1 spray(s) nasa l route twice daily Triamcinolone Acetonide (Nasacort) 55 mcg aerosol,spray Active 1 SPRAY INTRANASAL TWICE A DAY June 20, 2023 1:02pm administer into each nostril Start: 05-09-2023 End: 06-20-2023 Triamcinolone Acetonide (Joaquin acort) 55 mcg aerosol,spray Discontinued 2 NMA INTRANASAL DAILY May 09, 2023 12:00am June 20, 2023 2:04pm administer into each nostril Start: 05-09-2023 End: 06-20-2023 take 1 spray(s) nasal route once daily Triamcinolone Acetonide (Nasacort) 55 mcg aerosol,spray Discontinued 2 SPRAY INTRANASAL DAILY May 08, 2023 11:00pm June 20, 2023 1:04pm administer into each nostril triamcinolone (N asacort Allergy 24HR) 55 MCG/ACT Aerosol 2 sprays by Nasal route 2 times daily. 0 Active Zinc (19 sources) Start: 03-21-2021 End: 09-14-2021 take 22 mg by mouth once daily Zinc Discontinued 22 MG PO DAILY March 21, 2021 3:29pm September 14, 2021 3:46pm Start: 03-21-2021 End: 09-14-2021 take 1 tablet by mouth once daily Zinc 22 mg Tablet Discontinued 22 mg PO DAILY March 21, 2021 12:00am September 14, 2021 3:46pm Start: 03-21-2021 End: 09-14-2021 take 22 mg by mouth once daily Zinc Discontinued 22 MG PO DAILY March 20, 2021 11:00pm September 14, 2021 2:46pm Start: 03-21-2021 End: 09-14-2021 take 22 mg by mouth once daily Zinc Discontinued 22 MG PO DAILY March 21, 2021 12:00am September 14, 2021 3:46pm zinc gluconate 30 mg oral tablet (20 sources) Start: 09-14-2021 End: 06-13-2022 take 1 tablet by mouth once daily Zinc Gluconate 30 mg tablet Discontinued 30 mg PO DAILY September 14, 2021 1:00am June 13, 2022 8:09am Problems Active Problems Problem Classification Problem Date Documented Da te Episodic/Chronic Abdominal hernia (9 sources) Recurrent left inguinal hernia; Translations: [Unilateral inguinal hernia, without obstruction or gangrene, recurrent] 06-20-2023 Episodic Abdominal pain (20 sources) Abdominal pain; Translations: [Unspecified abdominal pain] 09-08-2021 Episodic Acute posthemorrhagic anemia (10 sources) Acute posthemorrhagic anemia; Translations: [Acute posthemorrhagic anemia] 05-10-2023 Episodic Asthma (1 source) Severe persistent asthma, uncomplicated; Translations: [Severe persistent asthma, uncomplicated] Onset: 4 Chronic Cardiac and circulatory congenital anomalies (15 sources) Patent foramen ovale; Translations: [Patent foramen ovale with atrial septal aneurysm] Onset: 3 12-17-2022 Chronic Cardiac dysrhythmias (20 sources) Tachycardia; Translations: [Tachycardia, unspecified] Episodic Conditions associated with dizziness or vertigo (14 sources) Dizziness; Translations: [Dizziness and giddiness] Onset: 3 12-09-2022 Episodic Diabetes mellitus without complication (20 sources) Type 2 diabetes mellitus without complication; Translations: [Type 2 diabetes mellitus without complications] Onset: 5 09-15-2021 Chronic Comment on above: ON MED Diverticulosis and diverticulitis (20 sources) Diverticula of intestine; Translations: [Diverticulosis of intestine, part unspecified, without perforation or abscess without bleeding] Onset: 5 12-29-2017 Chronic Essential hypertension (20 sources) Essential hypertension; Translations: [Essential (primary) hypertension] Chronic Comment on above: CONTROLLED WITH MED Gastrointestinal hemorrhage (20 sources) Lower gastrointestinal hemorrhage; Translations: [Gastrointestinal hemorrhage, unspecified] 09-14-2021 Episodic Hemorrhoids (19 sources) Hemorrhoids; Translations: [Unspecified hemorrhoids] 12-29-2017 Episodic Immunizations and screening for infectious disease (19 sources) Contact with or exposure to other viral diseases; Translations: [Exposure to COVID-19 virus] 09-14-2021 Episodic Neoplasms of unspecified nature or uncertain behavior (4 sources) 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; Translations: [Neoplasm of uncertain behavior of connective and other soft tissue] Onset: 2 09-29-2021 Episodic Other and ill-defined heart disease (1 source) Atrial septal aneurysm; Translations: [Aneurysm of heart] 02-28-2023 Chronic Other and ill-defined heart disease (2 sources) Aneurysm of heart; Translations: [Aneurysm of heart] Onset: 3 Chronic Other circulatory disease (11 sources) H/O: hypertension; Translations: [Personal history of other diseases of the circulatory system] 12-09-2022 Episodic Other lower respiratory disease (11 sources) Dyspnea on exertion; Translations: [Other forms of dyspnea] 12-09-2022 Episodic Other nervous system disorders (1 source) Neuropathy; Translations: [Polyneuropathy, unspecified] 02-28-2023 Chronic Other nutritional; endocrine; and metabolic disorders (1 source) Obese class I; Translations: [Obesity, unspecified] Onset: 3 02-28-2023 Chronic Other nutritional; endocrine; and metabolic disorders (11 sources) H/O: diabetes mellitus; Translations: [Personal history of other endocrine, nutritional and metabolic disease] 12-09-2022 Episodic Other screening for suspected conditions (not mental disorders or infectious disease) (1 source) Encounter for screening for malignant neoplasm of colon; Translations: [Encounter for screening for malignant neoplasm of colon] Onset: 5 Episodic Other upper respiratory infections (12 sources) Sore throat symptom; Translations: [Acute pharyngitis, unspecified] 04-20-2023 Episodic Residual codes; unclassified (19 sources) Obstructive sleep apnea syndrome; Translations: [Obstructive sleep apnea (adult) (pediatric)] 10-31-2021 Chronic Skin and subcutaneous tissue infections (8 sources) Paronychia; Translations: [Cellulitis, unspecified] Onset: 2 10-02-2021 Episodic Thyroid disorders (19 sources) Hypothyroidism; Translations: [Hypothyroidism, unspecified] 09-15-2021 Chronic Comment on above: ON MED Viral infection (20 sources) Disease caused by 2019-nCoV; Translations: [COVID-19] Episodic Past or Other Problems Problem Classification Problem Date Documented Da te Episodic/Chronic Unclassified (4 sources) Problem Results Test Name Value Interpretation Reference Range Facility Bedside Glucoseon 01-29-2025 FINGERSTICK GLU 142 mg/dL High 74-106 [facility] Comment on above: Result Comment: FRANK GALEAS OF PATIENT CARE PER NURSING PROTOCOL Performed By: #### L 501.9985, L501.97894, L501.2450, L502.0250, L500.4050, L506.0400, L501.9520, L100.0100 #### [facility] [address] [place], [address] Colonoscopy Reporton 025 Colonoscopy Report [facility] Medical Records Department [address] [place] [address] Colonoscopy Report MR#: [id number] Acct: [id number] Name: TANI WILLIAMSON Rep #: [id number] : 1955 69 From: Nadir Martines DO PCP: Dr. Shane Contreras MD Status:REG [facility] Patient Name: Tani Williamson Procedure Date: 01/29/2025 10:12 AM Date of : 1955 Age: 69 Procedure: Colonoscopy Indications: Screening for colorectal malignant neoplasm Providers: Nadir Martines DO Medicines: Monitored Anesthesia Care Patient Profile: This is a 69 year old male. Refer to note in patient chart for documentation of history and physical. Last Colonoscopy: several years ago. Complications: No immediate complications. Procedure: Pre-Anesthesia Assessment: - Prior to the procedure, a History and Physical was performed, and patient medications and allergies were reviewed. The patient is competent. The risks and benefits of the procedure and the sedation options and risks were discussed with the patient. All questions were answered and informed consent was obtained. Patient identification and proposed procedure were verified by the physician in the pre-procedure area. Mental Status Examination: alert and oriented. Airway Examination: normal oropharyngeal airway and neck mobility. Respiratory Examination: clear to auscultation. CV Examination: normal. Prophylactic Antibiotics: The patient does not require prophylactic antibiotics. Prior Anticoagulants: The patient has taken no anticoagulant or antiplatelet agents except for NSAID medication. ASA Grade Assessment: II - A patient with mild systemic disease. After reviewing the risks and benefits, the patient was deemed in satisfactory condition to undergo the procedure. The anesthesia plan was to use general anesthesia. Immediately prior to administration of medications, the patient was re-assessed for adequacy to receive sedatives. The heart rate, respiratory rate, oxygen saturations, blood pressure, adequacy of pulmonary ventilation, and response to care were monitored throughout the procedure. The physical status of the patient was re-assessed after the procedure. After I obtained informed consent, the scope was passed under direct vision. Throughout the procedure, the patient's blood pressure, pulse, and oxygen saturations were monitored continuously. The Colonoscope was introduced through the anus and advanced to the cecum, identified by appendiceal orifice and ileocecal valve. The colonoscopy was performed without difficulty. The patient tolerated the procedure well. The quality of the bowel preparation was adequate. The ileocecal valve, appendiceal orifice, and rectum were photographed. Scope In: 10:21:32 AM Scope Withdrawal Time 0 hours 9 minutes 15 seconds Scope Out: 10:37:57 AM Total Procedure Duration Time 0 hours 16 minutes 25 seconds Findings: The perianal and digital rectal examinations were normal. Multiple small and large-mouthed diverticula were found in the entire colon. A 4 mm polyp was found in the ascending colon. The polyp was sessile. The polyp was removed with a jumbo cold forceps. Resection and retrieval were complete. Verification of patient identification for the specimen was done. Estimated blood loss was minimal. Non-bleeding internal hemorrhoids were found during retroflexion. The hemorrhoids were Grade I (internal hemorrhoids that do not prolapse). Impression: - Diverticulosis in the entire examined colon. - One 4 mm polyp in the ascending colon, removed with a jumbo cold forceps. Resected and retrieved. - Non-bleeding internal hemorrhoids. Recommendation: - Repeat colonoscopy in 5 years for surveillance. - Return to GI office in 1 week. - Continue present medications. Procedure Code(s): --- Professional --- 90969, Colonoscopy, flexible; with biopsy, single or multiple CPT copyright 2021 [employer]. All rights reserved. The codes documented in this report are preliminary and upon supervisor tree trimming review may be revised to meet current compliance requirements. Nadir Martines DO 01/29/2025 10:42:20 AM This report has been signed electronically. Number of Addenda: 0 Note Initiated On: 01/29/2025 10:12 AM 01/29/25 1042 Date Nadir Friend DO Cosigner Signature: Date (if indicated) CC: Dr. Shane Contreras MD; Nadir Martines DO Date Dictated: 01/29/25 1012 Date Transcribed: Copy Chaser: TIFFANY Signed [facility] [place] [facility] deOrdered By: Nadir Martines on 01-29-2025 Glucose [Mass/Vol] 142 mg/dL High 74-106 [facility] Comment on above: MANAGEMENT OF PATIEN T CARE PER NURSING PROTOCOL MR/POSTOP.ANEon 01-29-2025 MR/POSTOP.[facility] Medical Records Department [address] [address] Anesthesia Postop Eval I 01/29/25 1045 MR#: [id number] Acct: [id number] Name: TANI WILLIAMSON Rep #: [id number] : 1955 69 From: Raffi Zhong PCP: Dr. Shane Contreras MD Status:REG [facility] Y Race: C Location: [place] [address] Anesthesia: Postop Eval I Current Vital Signs Temperature: 97 F Pulse Rate: 74 Blood Pressure: 119/52 Respiratory Rate: 16 Pulse Ox: 95 Oxygen Delivery Method: Room Air Assessment Airway patent: Yes Spontaneous unlabored respirations: Yes Mental status: Awake and Calm nausea: No Vomiting: No Anesthesia Complication: No Fluid Hydration Crystalloid volume administer (ml): 500 Total IV fluid infused: 500 Progress Note Anesthesia document: Postop Eval 1 completed: Yes 01/29/25 1046 Date Raffi Bustos Signature: Date CC: Signed Normal [facility] MR/HTAFTNYC8le 01-29-2025 MR/POST[address] Medical Records Department [address] [place] [address] Anesthesia Postop Eval II 01/29/25 1418 MR#: [id number] Acct: [id number] Name: TANI WILLIAMSON Rep #: [id number] : 1955 69 From: Quinten Martin TELEPHONIC NURSE PCP: Dr. Shane Contreras MD Status:[facility] Y Race: C Location: [place] Anesthesia Postop Eval I Sum Postop Eval Completion status Anesthesia document: Postop Eval 1 completed: Yes Anesthesia Postop Eval I Summary Anesthesia Postop Eval I Summary: Anesthesia Postop Eval I: Assessment Summary Airway patent Yes 01/29/25 10:46 [email or web address] Spontaneous unlabored Yes 01/29/25 10:46 [email or web address] respirations Mental status Awake,Calm 01/29/25 12:20 nausea No 01/29/25 12:20 Vomiting No 01/29/25 12:20 Anesthesia Postop Eval I: Fluid Summary Crystalloid volume administer 500 01/29/25 10:46 [email or web address] (ml) Colloids volume administered ( ml) Blood Product volume administered (ml) Total IV fluid infused 500 01/29/25 10:46 [email or web address] Anesthesia Postop Eval I: Summary Notes Anesthesia Complication No 01/29/25 12:20 Anesthesia Complication Comment: Post-operative progress note Anesthesia: Postop Eval II Evaluation Mental status: Awake Pain Level: 0 nausea: Yes Vomiting: Yes 01/29/251417 Date Quinten Martin TELEPHONIC NURSE Cosigner Signature: Date CC: Signed Normal [facility]/[address] Medical Records Department [address] [place] [address] Anesthesia Postop Eval II 01/29/25 1219 MR#: [id number] Acct: [id number] Name: TANI WILLIAMSON Rep #: [id number] : 1955 69 From: Luiz Dawson MD PCP: Dr. Shane Contreras MD Status:[facility] Y Race: C Location: EN Anesthesia Postop Eval I Sum Postop Eval Completion status Anesthesia document: Postop Eval 1 completed: Yes Anesthesia Postop Eval I Summary Anesthesia Postop Eval I Summary: Anesthesia Postop Eval I: Assessment Summary Airway patent Yes 01/29/25 10:46 [email or web address] Spontaneous unlabored Yes 01/29/25 10:46 [email or web address] respirations Mental status Awake,Calm 01/29/25 10:46 [email or web address] nausea No 01/29/25 10:46 [email or web address] Vomiting No 01/29/25 10:46 [email or web address] Anesthesia Postop Eval I: Fluid Summary Crystalloid volume administer 500 01/29/25 10:46 [email or web address] (ml) Colloids volume administered ( ml) Blood Product volume administered (ml) Total IV fluid infused 500 01/29/25 10:46 [email or web address] Anesthesia Postop Eval I: Summary Notes Anesthesia Complication No 01/29/25 10:46 [email or web address] Anesthesia Complication Comment: Post-operative progress note Anesthesia: Postop Eval II Evaluation Mental status: Awake and Calm Pain Level: 0 nausea: No Vomiting: No Complications Anesthesia Complication: No 01/29/25 1220 Date Luiz Dawosn MD Cosigner Signature: Date CC: Signed Normal [facility] Surgery Specimen Level Krishan 01-29-2025 Surgery Specimen Level IV Patient Age/Sex Location Account Attending Physician TANI WILLIAMSON 69/M EN [id number] Nadir Martines DO Specimen: [id number] Received: 01/29/25 Status: JOANNANancy Claribel Num: [id number] Spec Type: COLON BX Subm Dr: Nadir Martines DO HEADER OPERATION: Colonoscopy and polypectomy PRE-OP DIAGNOSIS: Status post diverticulitis TISSUE SUBMITTED: A- Hepatic flexure polyp MICROSCOPIC DIAGNOSIS A. Hepatic flexure, colon, polyp, biopsy: - Tubular adenoma. MICROSCOPIC DESCRIPTION Slides are reviewed. GROSS DESCRIPTION A. Received in fixative is one container labeled with the patient's name and designated Hepatic flexure polyp. The specimen consists of one irregular fragment of light kiran soft tissue that measures 0.2 x 0.2 x 0.1 cm. The specimen is totally submitted in one cassette. / 01/29/2025 CPT:15044 Patient Age/Sex Location Account Attending Physician TANI WILLIAMSON 69/M EN [id number] Nadir Martines, DO Signed (signature on file) Dr. Anisa Garcia MD 02/02/25 1546 [facility] [place] Comment on above: Performed By: #### L 501.9985, L501.26187, L501.2450, L502.0250, L500.4050, L506.0400, L501.9520, L100.0100 #### [facility] [address] [place], [address] MR/PATELVISmarjorie 01-27-2025 MR/PAT.BELL [facility] Medical Records Department [address] [place] [address] PAT - Anesthesia 01/27/252034 MR#: [id number] Acct: [id number] Name: TANI WILLIAMSON Rep #: [id number] : 1955 69 From: Miki Mccollum MD PCP: Dr. 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 When Was Last Pacemaker Check QUESTION #4 FULL TEXT: You/Your Family Experience fever (hyperthermia) with Anesthesia Last Oral Intake Last Oral intake: Last Oral Intake NPO since Meds taken in AM with sips of water? 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 Female No 01/27/25 12:10 HX of Motion Sickness No 01/27/25 12:10 HX of N/V After Surgery No 01/27/25 12:10 Non-Smoker Yes 01/27/25 12:10 Duration of Surgery greater No 01/27/25 12:10 than 60 minutes Number of Risk Factors 1 01/27/25 12:10 PONV Score Low Risk 01/27/25 12:10 Height Weight Height Weight: Anesthesia: Height Weight Height 6 ft 5 in 09/16/23 14:04 Respiratory Assessment Respiratory Assessment - 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 Has anyone observed you stop breathing during sleep? STOP Results Positive 01/27/25 12:10 QUESTION #5 FULL TEXT : Do you snore loudly (louder than talking or can be heard through closed doors)? 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 Specify any problems Hx of Preganancy in last 3 N/A 01/27/25 12:10 Months Nurse Filling Out Transfusion DSCHRIBER 01/27/25 12:10 Questions: Date: 01/27/25 01/27/25 12:10 Time: 12:11 01/27/25 12:10 Patient unable to answer at this time (ie. 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 No 01/27/25 12:10 Gestational Age (in weeks): EDC: Hx Hx Para Hx Section SAB No 01/27/25 12:10 PFSH Medical History (Updated 01/27/25 @ 12:17 by Willow Phillips) Indwelling urethral catheter present Diabetes Wears glasses Wears contact lenses Cancer Anxiety Back pain Dietary restriction CPAP (continuous positive airway pressure) dependence Non-smoker History of echocardiogram History of stress test Cardiology follow-up encounter PFO (patent foramen ovale) Diverticulitis PFO with atrial septal aneurysm History of skin cancer Hypothyroidism Essential hypertension Asthma Exposure to COVID-19 virus Home Medications ???Medication ???Instructions ???Recorded ???Last Taken ???Type montelukast 10 mg tablet 10 mg PO QHS 03/21/21 09/15/23 21: 01 History cholecalciferol (vitamin D3) 50 2,000 unit PO DAILY 09/15/2109/14 History mcg (2,000 unit) tablet (Vitamin D3) metformin 500 mg tablet 500 mg PO QHS 09/15/21 09/15/23 21 :00 History tamsulosin 0.4 mg capsule 0.4 mg PO QHS 06/13/22 09/15/23 21 :00 History multivitamin 1 tab (more content not included)... Normal [facility] Gastroenterology Visit [facility] 11-27-2024 Gastroenterology Visit Report [facility] Gastroenterology [address] [place] [address] OFFICE VISIT Date of Service: 11/27/24 MR#: [id number] Acct: [id number] Name: TANI WILLIAMSON Rep #: [id number] : 1955 Provider: Nadir Martines DO Age/Sex: 69/M Location: [facility] Status: Signed Intake Vital Signs 09/16/23 14:04 Height 6 ft 5 in Intake Visit Reasons: Diverticulitits Chief Complaint: Diverticulitis Allergies amoxicillin trihydrate (From Augmentin) Allergy (Verified 11/27/24 15:28) Rash potassium clavulanate (From Augmentin) Allergy (Verified 11/27/24 15:28) Rash Medications ???Medication ???Instructions ???Recorded ???Confirmed ???Type montelukast 10 mg tablet 10 mg PO QHS 03/21/21 11/27/24 His tory cholecalciferol (vitamin D3) 50 2,000 unit PO DAILY 09/15/2111/27 History mcg (2,000 unit) tablet (Vitamin D3) metformin 500 mg tablet 500 mg PO QHS 09/15/21 11/27/24 Hi story tamsulosin 0.4 mg capsule 0.4 mg PO QHS 06/13/22 11/27/24 Hi story multivitamin 1 tab PO DAILY SUPPLEMENT 12/09/22 11/27/24 History zinc acetate 25 mg (zinc) capsule 30 mg PO DAILY SUPPLEMENT 3 11/27/24 History guaifenesin 600 mg tablet, 600 mg PO BID 05/09/23 11/04/23 Hi story extended release 12 hr mecobalamin (vitamin B12) 500 mcg 500 mcg PO DAILY 05/09/23 5 History chewable tablet fluticasone 232mcg-salmeterol 1 inh inhalation BID asthma 11/27/24 History 14mcg/actuation breath act,powder sensor levothyroxine 75 mcg capsule 75 mcg PO SUSA 06/20/23 11/27/24 H istory losartan 100 mg tablet 100 mg PO QHS 06/20/23 11/27/24 Hi story triamcinolone acetonide 55 mcg 1 spray intranasal BID 06/20/23 History nasal spray aerosol (Nasacort) aspirin 81 mg capsule 81 mg PO DAILY 09/11/23 11/27/24 H istory atorvastatin 10 mg tablet (Lipitor) 10 mg PO QDAY 11/27/24 11/27/24 History Have you fallen in the past year?: No PFSH Medical History Diabetes Wears glasses Wears contact lenses Cancer Anxiety Back pain Dietary restriction CPAP (continuous positive airway pressure) dependence Non-smoker History of echocardiogram History of stress test Cardiology follow-up encounter PFO (patent foramen ovale) Diverticulitis PFO with atrial septal aneurysm COVID-19 LUKE on CPAP Tachycardia History of skin cancer Hypothyroidism Type 2 diabetes mellitus without complication Essential hypertension Abdominal pain Asthma Exposure to COVID-19 virus Lower GI bleeding Surgical History S/P left inguinal hernia repair History of colonoscopy ( 06/2023) History of esophagogastroduodenoscopy (EGD) History of hemorrhoidectomy History of orchiectomy, unilateral History of drainage of abscess H/O hernia repair Family History Mother Breast cancer Father Heart disease Cancer Kidney Social History Smoking Status: Never smoker alcohol intake: never substance use type: does not use caffeine: No (Over the last 3 weeks) HPI HPI Chief Complaint: Diverticulitis Details: TANI WILLIAMSON, is a 69 M who presents to the office today for follow up. Pt reports hx diverticulitis. Had an episode that started last weekend with LLQ abd pain. Treated with Cipro, Flagyl and a clear liquid diet for 4 days. Sx have improved. No longer having pain but feels lousy. Has moved to a soft diet. Pt states last episode before this was a year and a half ago. Last colonoscopy was 06/[address] Gerber. Has follow up questions. ROS Const Constitutional: No fatigue, fever(s) or weight change ENT ENT: No difficulty swallowing Gastro GI: Positive for abdominal pain; No belching, bloating, change in bowel habits, change in stool character, coffee ground emesis, constipation, cramping, diarrhea, heartburn, difficulty swallowing, feeling full early, excessive flatus, incontinent of stools, Vomiting blood/hematemesis, Blood in stool, loose stools, Black,tarry stools, nausea/dyspepsia, pain with swallowing, vomiting or other Musc Musculoskeletal: No joint pain Skin Skin: No yellowing of the eye or itchy eyes Psych Psychiatric: No anxiety and No depression Endo Endocrine: No fatigue or weight change Aller/Imm Allergy/Immunologic: No itchy eyes Larry/Lymp Hematologic/Lymphatic: No easy bleeding or easy bruising Exam Const General: cooperative, healthy appearing, comfortable, no acute distress, well developed and well groomed Nutritional Appearance: well nourished Orientation: oriented x3 HENMT Ears: hearing grossly normal bilaterally Nose: externa (more content not included)... Normal [facility] Absolute lymphocyte countOrd ered By: Shane Contreras on 11-26-2024 Lymphocytes Auto (Unsp spec) [#/Vol] 1.29 10*3/uL 0.83-4.51 [facility] Absolute neutrophil countOrd ered By: Shane Contreras on 11-26-2024 Neutrophils (Bld) [#/Vol] 2.6 10*3/uL 2.0-7.7 [facility] Anion gap in Serum or Plasma Ordered By: Shane Contreras on 11-26-2024 Anion gap [Moles/Vol] 12 mmol/L 11-26 [facility] Automated lymphocyte count a s percentage of total leukocytesOrdered By: Shane Contreras on 11-26-2024 Lymphocytes/100 WBC Auto (Unsp spec) 27.6 % [facility] BUN/creatinine ratioOrdered By: Shane Contreras on 11-26-2024 Urea nitrogen/Creatinine [Mass ratio] 14.0 mg/mg 05-03 [facility] Basophil percentageOrdered B y: Shane Contreras on 11-26-2024 Basophils/100 WBC (Bld) 0.6 % 0- [facility] Bilirubin, totalOrdered By: Shane Contreras on 11-26-2024 Bilirubin [Mass/Vol] 0.66 mg/dL 0.00-1.30 [facility] CBC W/Diff, Automatedon 11-12 Absolute Lymph 1.29 X10 3/uL Normal 0.83-4.51 [facility] Comment on above: Performed By: #### L 501.9985, L501.11025, L501.2450, L502.0250, L500.4050, L506.0400, L501.9520, L100.0100 #### [facility] [address] [place], [address] Absolute Neut 2.6 X10 3/uL Normal 2.0-7.7 [facility] Comment on above: Performed By: #### L 501.9985, L501.34315, L501.2450, L502.0250, L500.4050, L506.0400, L501.9520, L100.0100 #### [facility] [address] [place], [address] Basophils/100 WBC (Bld) 0.6 % Normal 0- [facility] Comment on above: Performed By: #### L 501.9985, L501.47901, L501.2450, L502.0250, L500.4050, L506.0400, L501.9520, L100.0100 #### [facility] [address] [place], [address] Eosinophils/100 WBC (Bld) 1.3 % Normal 0-5 [facility] Comment on above: Performed By: #### L 501.9985, L501.44918, L501.2450, L502.0250, L500.4050, L506.0400, L501.9520, L100.0100 #### [facility] [address] [facility] [place], [address] Erythrocyte distribution width (RBC) [Ratio] 13.6 % Normal 11.6-14.6 [facility] Comment on above: Performed By: #### L 501.9985, L501.57525, L501.2450, L502.0250, L500.4050, L506.0400, L501.9520, L100.0100 #### [facility] [address] [facility] [place], [address] Hematocrit (Bld) [Volume fraction] 41.6 % Normal 40-54 [facility] Comment on above: Performed By: #### L 501.9985, L501.65112, L501.2450, L502.0250, L500.4050, L506.0400, L501.9520, L100.0100 #### [facility] [address] [facility] [place], [address] Hemoglobin (Bld) [Mass/Vol] 14.0 g/dL Normal 13.0-16.5 [facility] Comment on above: Performed By: #### L 501.9985, L501.60109, L501.2450, L502.0250, L500.4050, L506.0400, L501.9520, L100.0100 #### [facility] [address] [place], [address] IG% 0.600 Normal 0.0-0.9 [facility] Comment on above: Result Comment: IG% - Immature Granulocytes (promyelocytes, myelocytes and metamyelocytes) > 1% indicates that a LEFT SHIFT is Present. Performed By: #### L 501.9985, L501.15626, L501.2450, L502.0250, L500.4050, L506.0400, L501.9520, L100.0100 #### [facility] [address] [place], [address] Lymphocytes/100 WBC (Bld) 27.6 % Normal 19-41 [facility] Comment on above: Performed By: #### L 501.9985, L501.13957, L501.2450, L502.0250, L500.4050, L506.0400, L501.9520, L100.0100 #### [facility] [address] [place], [address] MCH (RBC) [Entitic mass] 30.1 pg Normal 27.0-32.0 [facility] Comment on above: Performed By: #### L 501.9985, L501.82992, L501.2450, L502.0250, L500.4050, L506.0400, L501.9520, L100.0100 #### [facility] [address] [place], [address] MCHC (RBC) [Mass/Vol] 33.7 g/dL Normal 32-36 [facility] Comment on above: Performed By: #### L 501.9985, L501.03202, L501.2450, L502.0250, L500.4050, L506.0400, L501.9520, L100.0100 #### [facility] [address] [place], [address] MCV (RBC) [Entitic vol] 89.5 fL Normal 80-94 [facility] Comment on above: Performed By: #### L 501.9985, L501.69553, L501.2450, L502.0250, L500.4050, L506.0400, L501.9520, L100.0100 #### [facility] [address] [place], [address] Monocytes/100 WBC (Bld) 13.5 % High 0-10 [facility] Comment on above: Performed By: #### L 501.9985, L501.32422, L501.2450, L502.0250, L500.4050, L506.0400, L501.9520, L100.0100 #### [facility] [address] [place], [address] Neutrophils/100 WBC (Bld) 56.4 % Normal 47-70 [facility] Comment on above: Performed By: #### L 501.9985, L501.84510, L501.2450, L502.0250, L500.4050, L506.0400, L501.9520, L100.0100 #### [facility] [address] [place], [address] Nucleated RBC (Bld) [#/Vol] 0 10*3/uL Normal 0-5 [facility] Comment on above: Performed By: #### L 501.9985, L501.33987, L501.2450, L502.0250, L500.4050, L506.0400, L501.9520, L100.0100 #### [facility] [address] [place], [address] Platelet mean volume (Bld) [Entitic vol] 10.1 fL Normal 6.2-12.0 [facility] Comment on above: Performed By: #### L 501.9985, L501.12613, L501.2450, L502.0250, L500.4050, L506.0400, L501.9520, L100.0100 #### [facility] [address] [place], [address] Platelets (Bld) [#/Vol] 235 10*3/uL Normal 150-450 [facility] Comment on above: Performed By: #### L 501.9985, L501.48515, L501.2450, L502.0250, L500.4050, L506.0400, L501.9520, L100.0100 #### [facility] [address] [place], [address] RBC (Bld) [#/Vol] 4.65 10*6/uL Normal 4.6-6.2 [facility] Comment on above: Performed By: #### L 501.9985, L501.62435, L501.2450, L502.0250, L500.4050, L506.0400, L501.9520, L100.0100 #### [facility] [address] [place], [address] RDW SD 44.2 fl High 35.1-43.9 [facility] Comment on above: Performed By: #### L 501.9985, L501.91632, L501.2450, L502.0250, L500.4050, L506.0400, L501.9520, L100.0100 #### [facility] [address] [place], [address] WBC (Bld) [#/Vol] 4.7 10*3/uL Normal 4.4-11.0 [facility] Comment on above: Performed By: #### L 501.9985, L501.38501, L501.2450, L502.0250, L500.4050, L506.0400, L501.9520, L100.0100 #### [facility] [address] [place], [address] Carbon dioxide, total [Moles /volume] in Central venous bloodOrdered By: Shane Contreras on 11-26-2024 CO2 [Moles/Vol] 23.4 mmol/L 21.0-32.0 [facility] Chloride assayOrdered By: Herbie Contreras on 11-26-2024 Chloride [Moles/Vol] 101 mmol/L 98-108 [facility] Comprehensive Metabolic Prof ilon 11-26-2024 Albumin [Mass/Vol] 4.3 g/dL Normal 3.4-4.8 [facility] Comment on above: Performed By: #### L 501.9985, L501.07564, L501.2450, L502.0250, L500.4050, L506.0400, L501.9520, L100.0100 #### [facility] [address] [place], [address] Albumin/Globulin [Mass ratio] 1.5 {ratio} Normal 0.9-2.4 [facility] Comment on above: Performed By: #### L 501.9985, L501.02602, L501.2450, L502.0250, L500.4050, L506.0400, L501.9520, L100.0100 #### [facility] [address] [place], [address] ALK PHOS 62 U/L Normal 40-129 [facility] Comment on above: Performed By: #### L 501.9985, L501.15584, L501.2450, L502.0250, L500.4050, L506.0400, L501.9520, L100.0100 #### [facility] [address] [place], [address] ALT [Catalytic activity/Vol] 41 U/L Normal <=46 [facility] Comment on above: Performed By: #### L 501.9985, L501.75648, L501.2450, L502.0250, L500.4050, L506.0400, L501.9520, L100.0100 #### [facility] [address] [place], [address] AST [Catalytic activity/Vol] 41 U/L High <=37 [facility] Comment on above: Performed By: #### L 501.9985, L501.75689, L501.2450, L502.0250, L500.4050, L506.0400, L501.9520, L100.0100 #### [facility] [address] [place], [address] Bilirubin [Mass/Vol] 0.66 mg/dL Normal 0.00-1.30 [facility] Comment on above: Performed By: #### L 501.9985, L501.30648, L501.2450, L502.0250, L500.4050, L506.0400, L501.9520, L100.0100 #### [facility] [address] [place], [address] BUN/CRE 14.0 RATIO Normal 10-20 [facility] Comment on above: Performed By: #### L 501.9985, L501.29843, L501.2450, L502.0250, L500.4050, L506.0400, L501.9520, L100.0100 #### [facility] [address] [place], [address] Calcium [Mass/Vol] 9.4 mg/dL Normal 7.6-11.0 [facility] Comment on above: Performed By: #### L 501.9985, L501.87811, L501.2450, L502.0250, L500.4050, L506.0400, L501.9520, L100.0100 #### [facility] [address] [place], [address] Chloride [Moles/Vol] 101 mmol/L Normal 98-108 [facility] Comment on above: Performed By: #### L 501.9985, L501.72742, L501.2450, L502.0250, L500.4050, L506.0400, L501.9520, L100.0100 #### [facility] [address] [place], [address] CO2 [Moles/Vol] 23.4 mmol/L Normal 21.0-32.0 [facility] Comment on above: Performed By: #### L 501.9985, L501.77420, L501.2450, L502.0250, L500.4050, L506.0400, L501.9520, L100.0100 #### [facility] [address] [place], [place], [id number] (797) Creatinine [Mass/Vol] 0.90 mg/dL Normal 0.70-1.20 [facility] Comment on above: Performed By: #### L 501.9985, L501.93750, L501.2450, L502.0250, L500.4050, L506.0400, L501.9520, L100.0100 #### [facility] [address] [place], [address] GAP 12 Normal 5-15 [facility] Comment on above: Performed By: #### L 501.9985, L501.74682, L501.2450, L502.0250, L500.4050, L506.0400, L501.9520, L100.0100 #### [facility] [address] [place], [address] GFR/1.73 sq M.predicted among non-blacks MDRD (S/P/Bld) [Vol rate/Area] 93 mL/min/{1.73_m2} Normal >60 [facility] Comment on above: Result Comment: mL/m in/1.73m2 CKD-EPI Creatinine Equation (2020) Performed By: #### L 501.9985, L501.10536, L501.2450, L502.0250, L500.4050, L506.0400, L501.9520, L100.0100 #### [facility] [address] [place], [address] Globulin (S) [Mass/Vol] 2.8 g/dL Normal 2.2-4.2 [facility] Comment on above: Performed By: #### L 501.9985, L501.63125, L501.2450, L502.0250, L500.4050, L506.0400, L501.9520, L100.0100 #### [facility] [address] [place], [address] Glucose [Mass/Vol] 119 mg/dL High 70-99 [facility] Comment on above: Performed By: #### L 501.9985, L501.87446, L501.2450, L502.0250, L500.4050, L506.0400, L501.9520, L100.0100 #### [facility] [address] [place], [address] Potassium [Moles/Vol] 3.8 mmol/L Normal 3.3-5.1 [facility] Comment on above: Performed By: #### L 501.9985, L501.97616, L501.2450, L502.0250, L500.4050, L506.0400, L501.9520, L100.0100 #### [facility] [address] [place], [address] Sodium [Moles/Vol] 137 mmol/L Normal 133-145 [facility] Comment on above: Performed By: #### L 501.9985, L501.26767, L501.2450, L502.0250, L500.4050, L506.0400, L501.9520, L100.0100 #### [facility] [address] [place], [place], [id number] T PROT 7.1 g/dL Normal 5.9-8.4 [facility] Comment on above: Performed By: #### L 501.9985, L501.11138, L501.2450, L502.0250, L500.4050, L506.0400, L501.9520, L100.0100 #### [facility] [address], [id number] Urea nitrogen [Mass/Vol] 13 mg/dL Normal 4-19 [facility] Comment on above: Performed By: #### L 501.9985, L501.27983, L501.2450, L502.0250, L500.4050, L506.0400, L501.9520, L100.0100 #### [facility] [address] [place], [place], [id number] Eosinophil percentageOrdered By: Shane Contreras on 11-26-2024 Eosinophils/100 WBC (Bld) 1.3 % 0-5 [facility] Erythrocyte distribution wid th ratioOrdered By: Shane Contreras on 11-26-2024 Erythrocyte distribution width (RBC) [Ratio] 13.6 % 11.6-14.6 [facility] Erythrocyte distribution wid th standard deviationOrdered By: Shane Contreras on 11-26-2024 Erythrocyte distribution width (RBC) [Ratio] 44.2 fl High 35.1-43.9 [facility] Free T3on 11-26-2024 Free T3 [Mass/Vol] 3.0 pg/mL Normal 2.18-3.98 [facility] Comment on above: Performed By: #### L 501.9985, L501.38256, L501.2450, L502.0250, L500.4050, L506.0400, L501.9520, L100.0100 #### [facility] [address] [place], [address] Free S8Qhnhpuf By: Shane whalen on 11-26-2024 Free T3 [Mass/Vol] 3.0 pg/mL 2.18-3.98 [facility] Glomerular filtration rate ( GFR) estimation/1.73 sq m using serum, plasma, or whole bOrdered By: Shane Contreras on 11-26-2024 GFR/1.73 sq M.predicted among non-blacks MDRD (S/P/Bld) [Vol rate/Area] 93 mL/min/{1.73_m2} >60 [facility] Comment on above: mL/min/1.73m2 CKD-EP I Creatinine Equation (2020) Hematocrit Auto (Bld) [Volum e fraction]Ordered By: Shane Contreras on 11-26-2024 Hematocrit (Bld) [Volume fraction] 41.6 % 40-54 [facility] Hemoglobin A1con 11-26-2024 HbA1c (Bld) [Mass fraction] 6.1 % High <=5.6 [facility] Comment on above: Result Comment: Norm al < 5.7 % Prediabetic 5.7 - 6.4 % Diabetic >or= 6.5 % Please note range changes. Performed By: #### L 501.9985, L501.22021, L501.2450, L502.0250, L500.4050, L506.0400, L501.9520, L100.0100 #### [facility] [address] [place], [place], [id number] Hemoglobin A1c percentageOrd ered By: Shane Contreras on 11-26-2024 HbA1c (Bld) [Mass fraction] 6.1 % High <5.7 [facility] Comment on above: Normal < 5.7 % Predi abetic 5.7 - 6.4 % Diabetic >or= 6.5 % Please note range changes. Hemoglobin measurementOrdere d By: Shane Contreras on 11-26-2024 Hemoglobin (Bld) [Mass/Vol] 14.0 g/dL 13.0-16.5 [facility] Immature granulocytes/100 WB C Auto (Bld)Ordered By: Shane Contreras on 11-26-2024 Immature granulocytes/100 WBC (Bld) 0.600 % 0.0-0.9 [facility] Comment on above: IG% - Immature Granu locytes (promyelocytes, myelocytes and metamyelocytes) > 1% indicates that a LEFT SHIFT is Present. Laboratory - Chemistry and C hemistry - challengeOrdered By: Shane Contreras on 11-26-2024 AST [Catalytic activity/Vol] 41 U/L High <38 [facility] Lipaseon 11-26-2024 Lipase [Catalytic activity/Vol] 16 U/L Normal 13-75 [facility] Comment on above: Result Comment: Joyce andino note: LIPASE revised reference range effective 22. New Lipase methodology. Expected to produce lower values than the previous assay method. NEW Reference Range: 13 - 75 U/L Performed By: #### L 501.9985, L501.04157, L501.2450, L502.0250, L500.4050, L506.0400, L501.9520, L100.0100 #### [facility] [address] [place], [address] Lipase measurementOrdered By : Shane Contreras on 11-26-2024 Lipase [Catalytic activity/Vol] 16 U/L 13-75 [facility] Comment on above: Please note:LIPASE r evised reference range effective 22. New Lipase methodology. Expected to produce lower values than the previous assay method. NEW Reference Range: 13 - 75 U/L MCV (mean corpuscular volume ) determinationOrdered By: Shane Contreras on 11-26-2024 MCV (RBC) [Entitic vol] 89.5 fL 80-94 [facility] Mean corpuscular hemoglobin (MCH) determinationOrdered By: Shane Contreras on 11-26-2024 MCH (RBC) [Entitic mass] 30.1 pg 27.0-32.0 [facility] Mean corpuscular hemoglobin concentration (MCHC) determinationOrdered By: Shane Contreras on 11-26-2024 MCHC (RBC) [Mass/Vol] 33.7 g/dL 32-36 [facility] Mean platelet volume determi nationOrdered By: Shane Contreras on 11-26-2024 Platelet mean volume (Bld) [Entitic vol] 10.1 fL 6.2-12.0 [facility] Microalb:Creat Ratio,Random URon 11-26-2024 MALB:CREAT Normal [facility] Comment on above: Result Comment: NO U RINE REC'D-EMAIL SENT Performed By: #### L 501.9985, L501.15495, L501.2450, L502.0250, L500.4050, L506.0400, L501.9520, L100.0100 #### [facility] [address] [place], [address] (360) MICROALBUMIN,UR Normal NO RANGE EST. [facility] Comment on above: Result Comment: NO U RINE REC'D-EMAIL SENT Performed By: #### L 501.9985, L501.92091, L501.2450, L502.0250, L500.4050, L506.0400, L501.9520, L100.0100 #### [facility] [address] [place], [address] UR CREAT Normal 39.00-259. 00 [facility] Comment on above: Result Comment: NO U RINE REC'D-EMAIL SENT Performed By: #### L 501.9985, L501.74665, L501.2450, L502.0250, L500.4050, L506.0400, L501.9520, L100.0100 #### [facility] [address] [place], [address] Monocyte percentageOrdered B y: Shane Contreras on 11-26-2024 Monocytes/100 WBC (Bld) 13.5 % High 0-10 [facility] Neutrophil percentageOrdered By: Shane Contreras on 11-26-2024 Neutrophils/100 WBC (Bld) 56.4 % 47-70 [facility] Nucleated red blood cell per centageOrdered By: Shane Contreras on 11-26-2024 Nucleated RBC/100 WBC (Bld) [Ratio] 0 % 0-5 [facility] Platelet countOrdered By: Herbie Contreras on 11-26-2024 Platelets (Bld) [#/Vol] 235 10*3/uL 150-450 [facility] Potassium measurement (mass/ volume)Ordered By: Shane Contreras on 11-26-2024 Potassium (Unsp spec) [Mass/Vol] 3.8 mmol/L 3.3-5.1 [facility] RBC Auto (Bld) [#/Vol]Ordere d By: Shane Contreras on 11-26-2024 RBC (Bld) [#/Vol] 4.65 10*6/uL 4.6-6.2 [facility] Serum creatinine measurement (mass/volume)Ordered By: Shane Contreras on 11-26-2024 Creatinine [Mass/Vol] 0.90 mg/dL 0.70-1.20 [facility] Serum globulin measurementOr dered By: Shane Contreras on 11-26-2024 Globulin (S) [Mass/Vol] 2.8 g/dL 2.2-4.2 [facility] Serum glucose measurement (m ass/volume)Ordered By: Shane Contreras on 11-26-2024 Glucose [Mass/Vol] 119 mg/dL High 70-99 [facility] Serum or plasma alanine campos otransferase (ALT) measurementOrdered By: Shane Contreras on 11-26-2024 ALT [Catalytic activity/Vol] 41 U/L <47 [facility] Serum or plasma albumin malissa urement (mass/volume)Ordered By: Shane Contreras on 11-26-2024 Albumin [Mass/Vol] 4.3 g/dL 3.4-4.8 [facility] Serum or plasma albumin/glob ulin mass ratioOrdered By: Shane Contreras on 11-26-2024 Albumin/Globulin [Mass ratio] 1.5 {ratio} 0.9-2.4 [facility] Serum or plasma alkaline letitia sphatase measurementOrdered By: Shane Contreras on 11-26-2024 ALP [Catalytic activity/Vol] 62 U/L 40-129 [facility] Serum or plasma calcium malissa urement (mass/volume)Ordered By: Shane Contreras on 11-26-2024 Calcium [Mass/Vol] 9.4 mg/dL 7.6-11.0 [facility] Serum or plasma urea nitroge n measurement (mass/volume)Ordered By: Shane Contreras on 11-26-2024 Urea nitrogen [Mass/Vol] 13 mg/dL 4-19 [facility] Sodium levelOrdered By: Shane Contreras on 11-26-2024 Sodium [Moles/Vol] 137 mmol/L 133-145 [facility] T4 Free Directon 11-26-2024 T4 FREE DIRECT 1.30 ng/dL Normal 0.76-1.46 [facility] Comment on above: Performed By: #### L 501.9985, L501.09233, L501.2450, L502.0250, L500.4050, L506.0400, L501.9520, L100.0100 #### [facility] [address] [place], [address] T4 freeOrdered By: Shane whalen on 11-26-2024 Free T4 [Mass/Vol] 1.30 ng/dL 0.76-1.46 [facility] TSH DL <= 0.005 mIU/L QnOrde red By: Shane Contreras on 11-26-2024 TSH Qn 2.140 uIU/mL 0.300-4.20 0 [facility] Thyroid Stim Hormone (TSH)on 11-26-2024 TSH 2.140 uIU/mL Normal 0.300-4.20 0 [facility] Comment on above: Performed By: #### L 501.9985, L501.42991, L501.2450, L502.0250, L500.4050, L506.0400, L501.9520, L100.0100 #### [facility] [address] [place], [address] Total proteinOrdered By: Teressa Contreras on 11-26-2024 Protein [Mass/Vol] 7.1 g/dL 5.9-8.4 [facility] White blood cell (WBC) count Ordered By: Shane Contreras on 11-26-2024 WBC (Bld) [#/Vol] 4.7 10*3/uL 4.4-11.0 [facility] Albumin to globulin ratioOrd ered By: Shane Contreras on 08-24-2024 Albumin/Globulin [Mass ratio] 1.0 {ratio} 0.9-2.4 [facility] Bilirubin, totalOrdered By: Shane Contreras on 08-24-2024 Bilirubin [Mass/Vol] 0.80 mg/dL 0.20-1.00 [facility] Comment on above: For patients on eltr ombopag therapy, use of Dimension [place] TBIL is not recommended. Blood urea nitrogen (BUN)/cr eatinine ratioOrdered By: Shane Contreras on 08-24-2024 Urea nitrogen/Creatinine [Mass ratio] 13.5 mg/mg 10-20 [facility] Carbon dioxide measurementOr dered By: Shane Contreras on 08-24-2024 CO2 [Moles/Vol] 26.0 mmol/L 21.0-32.0 [facility] Chloride measurementOrdered By: Shane Contreras on 08-24-2024 Chloride [Moles/Vol] 103 mmol/L 98-107 [facility] Comprehensive Metabolic Prof ilon 08-24-2024 Albumin [Mass/Vol] 3.6 g/dL Normal 3.2-5.0 [facility] Comment on above: Performed By: #### L 501.9985, L501.90291, L501.2450, L502.0250, L500.4050, L506.0400, L501.9520, L100.0100 #### [facility] [address] [place] [address], [address] Albumin/Globulin [Mass ratio] 1.0 {ratio} Normal 0.9-2.4 [facility] Comment on above: Performed By: #### L 501.9985, L501.31459, L501.2450, L502.0250, L500.4050, L506.0400, L501.9520, L100.0100 #### [facility] [address] [place], [address] ALK P 62 U/L Normal 45-117 [facility] Comment on above: Performed By: #### L 501.9985, L501.24090, L501.2450, L502.0250, L500.4050, L506.0400, L501.9520, L100.0100 #### [facility] [address] [place], [address] ALT [Catalytic activity/Vol] 32 U/L Normal 16-61 [facility] Comment on above: Performed By: #### L 501.9985, L501.88449, L501.2450, L502.0250, L500.4050, L506.0400, L501.9520, L100.0100 #### [facility] [address] [place], [address] AST [Catalytic activity/Vol] 21 U/L Normal 15-37 [facility] Comment on above: Performed By: #### L 501.9985, L501.90811, L501.2450, L502.0250, L500.4050, L506.0400, L501.9520, L100.0100 #### [facility] [address] [place], [address] Bilirubin [Mass/Vol] 0.80 mg/dL Normal 0.20-1.00 [facility] Comment on above: Result Comment: For patients on eltrombopag therapy, use of Dimension [place] TBIL is not recommended. Performed By: #### L 501.9985, L501.97281, L501.2450, L502.0250, L500.4050, L506.0400, L501.9520, L100.0100 #### [facility] [address] [place], [address] BUN/CRE 13.5 RATIO Normal 10-20 [facility] Comment on above: Performed By: #### L 501.9985, L501.77776, L501.2450, L502.0250, L500.4050, L506.0400, L501.9520, L100.0100 #### [facility] [address] [place], [address] CA,Total 9.5 mg/dL Normal 8.5-10.1 [facility] Comment on above: Performed By: #### L 501.9985, L501.01215, L501.2450, L502.0250, L500.4050, L506.0400, L501.9520, L100.0100 #### [facility] [address] [place], [address] Chloride [Moles/Vol] 103 mmol/L Normal 98-107 [facility] Comment on above: Performed By: #### L 501.9985, L501.27542, L501.2450, L502.0250, L500.4050, L506.0400, L501.9520, L100.0100 #### [facility] [address] [place], [address] CO2 [Moles/Vol] 26.0 mmol/L Normal 21.0-32.0 [facility] Comment on above: Performed By: #### L 501.9985, L501.67168, L501.2450, L502.0250, L500.4050, L506.0400, L501.9520, L100.0100 #### [facility] [address] [place], [address] Creatinine [Mass/Vol] 0.89 mg/dL Normal 0.70-1.30 [facility] Comment on above: Result Comment: The validity of the calculated GFR GFRAA in patients over 70 years has not been determined. Clinical correlation is essential. Performed By: #### L 501.9985, L501.10728, L501.2450, L502.0250, L500.4050, L506.0400, L501.9520, L100.0100 #### [facility] [address] [place], [address] EST GFR - AA 110 mL/min Normal >60 [facility] Comment on above: Result Comment: Afri can [place] GFR Calc Performed By: #### L 501.9985, L501.26676, L501.2450, L502.0250, L500.4050, L506.0400, L501.9520, L100.0100 #### [facility] [address] [place], [place], [id number] GAP 9 Normal 5-15 [facility] Comment on above: Performed By: #### L 501.9985, L501.76763, L501.2450, L502.0250, L500.4050, L506.0400, L501.9520, L100.0100 #### [facility] [address] [place], [place], [id number] GFR/1.73 sq M.predicted among non-blacks MDRD (S/P/Bld) [Vol rate/Area] 91 mL/min/{1.73_m2} Normal >60 [facility] Comment on above: Result Comment: Non- GFR Calc Performed By: #### L 501.9985, L501.45387, L501.2450, L502.0250, L500.4050, L506.0400, L501.9520, L100.0100 #### [facility] [address] [place], [place], [phone] (190) Globulin (S) [Mass/Vol] 3.7 g/dL Normal 2.2-4.2 [facility] Comment on above: Performed By: #### L 501.9985, L501.63979, L501.2450, L502.0250, L500.4050, L506.0400, L501.9520, L100.0100 #### [facility] [address] [place], [address] Glucose [Mass/Vol] 111 mg/dL High 74-106 [facility] Comment on above: Result Comment: Fast ing Glucose result from 100 to 125 mg/dL suggests IMPAIRED HOMEOSTASIS per A.D.A. criteria. Performed By: #### L 501.9985, L501.80844, L501.2450, L502.0250, L500.4050, L506.0400, L501.9520, L100.0100 #### [facility] [address] [place], [address] Potassium [Moles/Vol] 3.7 mmol/L Normal 3.5-5.1 [facility] Comment on above: Performed By: #### L 501.9985, L501.74620, L501.2450, L502.0250, L500.4050, L506.0400, L501.9520, L100.0100 #### [facility] [address] [place], [address] Sodium [Moles/Vol] 138 mmol/L Normal 136-145 [facility] Comment on above: Performed By: #### L 501.9985, L501.50441, L501.2450, L502.0250, L500.4050, L506.0400, L501.9520, L100.0100 #### [facility] [address] [place], [address] T PROT 7.3 g/dL Normal 6.4-8.2 [facility] Comment on above: Performed By: #### L 501.9985, L501.61206, L501.2450, L502.0250, L500.4050, L506.0400, L501.9520, L100.0100 #### [facility] [address] [place], [place], [phone] Urea nitrogen [Mass/Vol] 12 mg/dL Normal 7-18 [facility] Comment on above: Performed By: #### L 501.9985, L501.09137, L501.2450, L502.0250, L500.4050, L506.0400, L501.9520, L100.0100 #### [facility] [address] [place], [place], [phone] Direct serum free thyroxine (FT4) measurementOrdered By: Shane Contreras on 08-24-2024 Free T4 [Mass/Vol] 1.02 ng/dL 0.76-1.46 [facility] Free T3on 08-24-2024 Free T3 [Mass/Vol] 2.8 pg/mL Normal 2.18-3.98 [facility] Comment on above: Performed By: #### L 501.9985, L501.07400, L501.2450, L502.0250, L500.4050, L506.0400, L501.9520, L100.0100 #### [facility] [address] [facility] [place], [place], [id number] Free V4Lpkcflt By: Shane whalen on 08-24-2024 Free T3 [Mass/Vol] 2.8 pg/mL 2.18-3.98 [facility] Glomerular filtration rate ( GFR) estimationOrdered By: Shane Contreras on 08-24-2024 GFR/1.73 sq M.predicted among non-blacks MDRD (S/P/Bld) [Vol rate/Area] 91 mL/min/{1.73_m2} >60 [facility] Comment on above: Non- GFR Calc Glucose measurementOrdered B y: Shane Contreras on 08-24-2024 Glucose [Mass/Vol] 111 mg/dL High 74-106 [facility] Comment on above: Fasting Glucose resu lt from 100 to 125 mg/dL suggests IMPAIRED HOMEOSTASIS per A.D.A. criteria. High density lipoprotein (HD L) measurementOrdered By: Shane Contreras on 08-24-2024 Cholesterol in HDL [Mass/Vol] 53 mg/dL >40 [facility] Comment on above: The drugs N-Acetylcy steine and Metamizole may falsely depress this assay. Reference Range HDL <40 mg/dL Low HDL Cholesterol HDL >or= 60 mg/dL High HDL Cholesterol Laboratory - Chemistry and C hemistry - challengeOrdered By: Shane Contreras on 08-24-2024 AST [Catalytic activity/Vol] 21 U/L 15-37 [facility] Lipid Profileon 08-24-2024 Cholesterol [Mass/Vol] 159 mg/dL Normal 200 [facility] Comment on above: Result Comment: <200 mg/dL Desirable 200-240 mg/dL Borderline >240 mg/dL High Risk Performed By: #### L 501.9985, L501.53607, L501.2450, L502.0250, L500.4050, L506.0400, L501.9520, L100.0100 #### [facility] [address] [place], [address] Cholesterol in HDL [Mass/Vol] 53 mg/dL Normal [facility] Comment on above: Result Comment: The drugs N-Acetylcysteine and Metamizole may falsely depress this assay. Reference Range HDL <40 mg/dL Low HDL Cholesterol HDL >or= 60 mg/dL High HDL Cholesterol Performed By: #### L 501.9985, L501.44980, L501.2450, L502.0250, L500.4050, L506.0400, L501.9520, L100.0100 #### [facility] [address] [place], [address] Cholesterol in LDL [Mass/Vol] 63 mg/dL Normal 0-130 [facility] Comment on above: Performed By: #### L 501.9985, L501.14697, L501.2450, L502.0250, L500.4050, L506.0400, L501.9520, L100.0100 #### [facility] [address] [place], [address] Cholesterol in VLDL [Mass/Vol] 43 mg/dL High 5-40 [facility] Comment on above: Performed By: #### L 501.9985, L501.31212, L501.2450, L502.0250, L500.4050, L506.0400, L501.9520, L100.0100 #### [facility] [address] [place], [address] Triglyceride [Mass/Vol] 215 mg/dL High [facility] Comment on above: Result Comment: The drugs N-Acetylcysteine and Metamizole may falsely depress this assay. Serum Triglycerides Reference Interval Normal <150 mg/dL Borderline high 150 - 199 mg/dL High 200 - 499 mg/dL Very High > or = 500 mg/dL Performed By: #### L 501.9985, L501.01451, L501.2450, L502.0250, L500.4050, L506.0400, L501.9520, L100.0100 #### [facility] [address] [place], [place], [phone] Low density lipoprotein (LDL ) cholesterol measurementOrdered By: Shane Contreras on 08-24-2024 Cholesterol in LDL [Mass/Vol] 63 mg/dL 0-130 [facility] Potassium measurementOrdered By: Shane Contreras on 08-24-2024 Potassium [Moles/Vol] 3.7 mmol/L 3.5-5.1 [facility] Serum anion gap measurementO rdered By: Shane Contreras on 08-24-2024 Anion gap [Moles/Vol] 9 mmol/L 5-15 [facility] Serum globulin measurementOr dered By: Shane Contreras on 08-24-2024 Globulin (S) [Mass/Vol] 3.7 g/dL 2.2-4.2 [facility] Serum or plasma alanine campos otransferase (ALT) measurementOrdered By: Shane Contreras on 08-24-2024 ALT [Catalytic activity/Vol] 32 U/L 16-61 [facility] Serum or plasma albumin malissa urement (mass/volume)Ordered By: Shane Contreras on 08-24-2024 Albumin [Mass/Vol] 3.6 g/dL 3.2-5.0 [facility] Serum or plasma alkaline letitia sphatase measurementOrdered By: Shane Contreras on 08-24-2024 ALP [Catalytic activity/Vol] 62 U/L 45-117 [facility] Serum or plasma calcium malissa urement (mass/volume)Ordered By: Shane Contreras on 08-24-2024 Calcium [Mass/Vol] 9.5 mg/dL 8.5-10.1 [facility] Serum or plasma cholesterol measurement (mass/volume)Ordered By: Shane Contreras on 08-24-2024 Cholesterol [Mass/Vol] 159 mg/dL <200 [facility] Comment on above: <200 mg/dL Desirable 200-240 mg/dL Borderline >240 mg/dL High Risk Serum or plasma creatinine m easurement (mass/volume)Ordered By: Shane Contreras on 08-24-2024 Creatinine [Mass/Vol] 0.89 mg/dL 0.70-1.30 [facility] Comment on above: The validity of the calculated GFR & GFRAA in patients over 70 years has not been determined. Clinical correlation is essential. Serum or plasma thyroid stim ulating hormone (TSH) measurement (units/volume)Ordered By: Shane Contreras on 08-24-2024 TSH Qn 5.650 uIU/mL High 0.358-3.74 0 [facility] Serum or plasma urea nitroge n measurement (mass/volume)Ordered By: Shane Contreras on 08-24-2024 Urea nitrogen [Mass/Vol] 12 mg/dL 7-18 [facility] Sodium levelOrdered By: Shane Contreras on 08-24-2024 Sodium [Moles/Vol] 138 mmol/L 136-145 [facility] T4 Free Directon 08-24-2024 T4 FREE DIRECT 1.02 ng/dL Normal 0.76-1.46 [facility] Comment on above: Performed By: #### L 501.9985, L501.96759, L501.2450, L502.0250, L500.4050, L506.0400, L501.9520, L100.0100 #### [facility] [address] [place], [address] Thyroid Stim Hormone (TSH)on 08-24-2024 TSH 5.650 uIU/mL High 0.358-3.74 0 [facility] Comment on above: Performed By: #### L 501.9985, L501.90316, L501.2450, L502.0250, L500.4050, L506.0400, L501.9520, L100.0100 #### [facility] [address] [place], [address] Total proteinOrdered By: Teressa Contreras on 08-24-2024 Protein [Mass/Vol] 7.3 g/dL 6.4-8.2 [facility] Triglycerides measurementOrd ered By: Shane Contreras on 08-24-2024 Triglyceride [Mass/Vol] 215 mg/dL High <199 [facility] Comment on above: The drugs N-Acetylcy steine and Metamizole may falsely depress this assay.Serum Triglycerides Reference Interval Normal <150 mg/dL Borderline high 150 - 199 mg/dL High 200 - 499 mg/dL Very High > or = 500 mg/dL Very low density lipoprotein (VLDL) cholesterol measurementOrdered By: Shane Contreras on 08-24-2024 Very low density lipoprotein (VLDL) cholesterol measurement 43 mg/dL High 5-40 [facility] Miscellaneous Lab Procedureo n 06-01-2024 [facility] LAB TEST Normal [facility] Comment on above: Order Comment: SER/R [id number] APO-B SER/RT Result Comment: TEST RESULTS LIMITS Apolipoprotein B 102 High mg/dL <90 Desirable < 90 Borderline High 90 - 99 High 100 - 130 Very High >130 ASCVD RISK THERAPEUTIC TARGET CATEGORY APO B (mg/dL) Very High Risk <80 (if extreme risk <70) High Risk <90 Moderate Risk <90 TESTING PERFORMED AT [facility]. ORIGINAL REPORT ON FILE IN LAB CONTAINS ADDITIONAL TEST SITE INFORMATION. Performed By: #### L 501.9985, L501.75194, L501.2450, L502.0250, L500.4050, L506.0400, L501.9520, L100.0100 #### [facility] [address] [place], [address] Comprehensive Metabolic Prof waon 05-29-2024 Albumin [Mass/Vol] 3.9 g/dL Normal 3.2-5.0 [facility] Comment on above: Performed By: #### L 501.9985, L501.79759, L501.2450, L502.0250, L500.4050, L506.0400, L501.9520, L100.0100 #### [facility] [address] [place], [address] Albumin/Globulin [Mass ratio] 1.0 {ratio} Normal 0.9-2.4 [facility] Comment on above: Performed By: #### L 501.9985, L501.83543, L501.2450, L502.0250, L500.4050, L506.0400, L501.9520, L100.0100 #### [facility] [address] [place], [address] ALK P 66 U/L Normal 45-117 [facility] Comment on above: Performed By: #### L 501.9985, L501.59902, L501.2450, L502.0250, L500.4050, L506.0400, L501.9520, L100.0100 #### [facility] [address] [place], [address] ALT [Catalytic activity/Vol] 27 U/L Normal 16-61 [facility] Comment on above: Performed By: #### L 501.9985, L501.79252, L501.2450, L502.0250, L500.4050, L506.0400, L501.9520, L100.0100 #### [facility] [address] [place], [address] AST [Catalytic activity/Vol] 14 U/L Low 15-37 [facility] Comment on above: Result Comment: Slig ht Hemolysis, Result may be falsely increased. Performed By: #### L 501.9985, L501.05451, L501.2450, L502.0250, L500.4050, L506.0400, L501.9520, L100.0100 #### [facility] [address] [place], [address] Bilirubin [Mass/Vol] 0.40 mg/dL Normal 0.20-1.00 [facility] Comment on above: Result Comment: For patients on eltrombopag therapy, use of Dimension [place] TBIL is not recommended. Performed By: #### L 501.9985, L501.66652, L501.2450, L502.0250, L500.4050, L506.0400, L501.9520, L100.0100 #### [facility] [address] [place], [address] BUN/CRE 16.1 RATIO Normal 10-20 [facility] Comment on above: Performed By: #### L 501.9985, L501.76243, L501.2450, L502.0250, L500.4050, L506.0400, L501.9520, L100.0100 #### [facility] [address] [place], [address] CA,Total 9.4 mg/dL Normal 8.5-10.1 [facility] Comment on above: Performed By: #### L 501.9985, L501.85727, L501.2450, L502.0250, L500.4050, L506.0400, L501.9520, L100.0100 #### [facility] [address] [place], [address] Chloride [Moles/Vol] 104 mmol/L Normal 98-107 [facility] Comment on above: Performed By: #### L 501.9985, L501.29187, L501.2450, L502.0250, L500.4050, L506.0400, L501.9520, L100.0100 #### [facility] [address] [place], [address] CO2 [Moles/Vol] 30.0 mmol/L Normal 21.0-32.0 [facility] Comment on above: Performed By: #### L 501.9985, L501.14294, L501.2450, L502.0250, L500.4050, L506.0400, L501.9520, L100.0100 #### [facility] [address] [place], [address] Creatinine [Mass/Vol] 0.99 mg/dL Normal 0.70-1.30 [facility] Comment on above: Result Comment: The validity of the calculated GFR GFRAA in patients over 70 years has not been determined. Clinical correlation is essential. Performed By: #### L 501.9985, L501.46544, L501.2450, L502.0250, L500.4050, L506.0400, L501.9520, L100.0100 #### [facility] [address] [place], [address] EST GFR - AA 97 mL/min Normal >60 [facility] Comment on above: Result Comment: Afri can [place] GFR Calc Performed By: #### L 501.9985, L501.89476, L501.2450, L502.0250, L500.4050, L506.0400, L501.9520, L100.0100 #### [facility] [address] [place], [place], [phone] (715) GAP 4 Low 5-15 [facility] Comment on above: Performed By: #### L 501.9985, L501.00302, L501.2450, L502.0250, L500.4050, L506.0400, L501.9520, L100.0100 #### [facility] [address] [place], [place], [phone] (177) GFR/1.73 sq M.predicted among non-blacks MDRD (S/P/Bld) [Vol rate/Area] 80 mL/min/{1.73_m2} Normal >60 [facility] Comment on above: Result Comment: Non- GFR Calc Performed By: #### L 501.9985, L501.40334, L501.2450, L502.0250, L500.4050, L506.0400, L501.9520, L100.0100 #### [facility] [address] [place], [place], [phone] (755) Globulin (S) [Mass/Vol] 3.8 g/dL Normal 2.2-4.2 [facility] Comment on above: Performed By: #### L 501.9985, L501.84711, L501.2450, L502.0250, L500.4050, L506.0400, L501.9520, L100.0100 #### [facility] [address] [place], [place], [phone] (904) Glucose [Mass/Vol] 109 mg/dL High 74-106 [facility] Comment on above: Result Comment: Fast ing Glucose result from 100 to 125 mg/dL suggests IMPAIRED HOMEOSTASIS per A.D.A. criteria. Performed By: #### L 501.9985, L501.50260, L501.2450, L502.0250, L500.4050, L506.0400, L501.9520, L100.0100 #### [facility] [address] [place], [address] Potassium [Moles/Vol] 4.2 mmol/L Normal 3.5-5.1 [facility] Comment on above: Result Comment: Slig ht Hemolysis, Result may be falsely increased. Performed By: #### L 501.9985, L501.79722, L501.2450, L502.0250, L500.4050, L506.0400, L501.9520, L100.0100 #### [facility] [address] [place], [address] Sodium [Moles/Vol] 138 mmol/L Normal 136-145 [facility] Comment on above: Performed By: #### L 501.9985, L501.57784, L501.2450, L502.0250, L500.4050, L506.0400, L501.9520, L100.0100 #### [facility] [address] [place], [address] T PROT 7.7 g/dL Normal 6.4-8.2 [facility] Comment on above: Performed By: #### L 501.9985, L501.13962, L501.2450, L502.0250, L500.4050, L506.0400, L501.9520, L100.0100 #### [facility] [address] [place], [address] Urea nitrogen [Mass/Vol] 16 mg/dL Normal 7-18 [facility] Comment on above: Performed By: #### L 501.9985, L501.65753, L501.2450, L502.0250, L500.4050, L506.0400, L501.9520, L100.0100 #### [facility] [address] [place], [place], [phone] Free T3on 05-29-2024 Free T3 [Mass/Vol] 3.0 pg/mL Normal 2.18-3.98 [facility] Comment on above: Performed By: #### L 501.9985, L501.80483, L501.2450, L502.0250, L500.4050, L506.0400, L501.9520, L100.0100 #### [facility] [address] [place], [place], [id number] Hemoglobin A1con 05-29-2024 HbA1c (Bld) [Mass fraction] 6.0 % High 3.8-5.6 [facility] Comment on above: Result Comment: Norm al < 5.7 % Prediabetic 5.7 - 6.4 % Diabetic >or= 6.5 % Please note range changes. Performed By: #### L 501.9985, L501.77933, L501.2450, L502.0250, L500.4050, L506.0400, L501.9520, L100.0100 #### [facility] [address] [place], [place], [phone] Lipid Profileon 05-29-2024 Cholesterol [Mass/Vol] 214 mg/dL High 200 [facility] Comment on above: Result Comment: <200 mg/dL Desirable 200-240 mg/dL Borderline >240 mg/dL High Risk Performed By: #### L 501.9985, L501.51649, L501.2450, L502.0250, L500.4050, L506.0400, L501.9520, L100.0100 #### [facility] [address] [place], [place], [phone] Cholesterol in HDL [Mass/Vol] 48 mg/dL Normal [facility] Comment on above: Result Comment: The drugs N-Acetylcysteine and Metamizole may falsely depress this assay. Reference Range HDL <40 mg/dL Low HDL Cholesterol HDL >or= 60 mg/dL High HDL Cholesterol Performed By: #### L 501.9985, L501.37625, L501.2450, L502.0250, L500.4050, L506.0400, L501.9520, L100.0100 #### [facility] [address] [place], [address] Cholesterol in LDL [Mass/Vol] 103 mg/dL Normal 0-130 [facility] Comment on above: Performed By: #### L 501.9985, L501.97008, L501.2450, L502.0250, L500.4050, L506.0400, L501.9520, L100.0100 #### [facility] [address] [place], [address] Cholesterol in VLDL [Mass/Vol] 63 mg/dL High 5-40 [facility] Comment on above: Performed By: #### L 501.9985, L501.93858, L501.2450, L502.0250, L500.4050, L506.0400, L501.9520, L100.0100 #### [facility] [address] [place], [address] Triglyceride [Mass/Vol] 316 mg/dL High [facility] Comment on above: Result Comment: The drugs N-Acetylcysteine and Metamizole may falsely depress this assay. Serum Triglycerides Reference Interval Normal <150 mg/dL Borderline high 150 - 199 mg/dL High 200 - 499 mg/dL Very High > or = 500 mg/dL Performed By: #### L 501.9985, L501.65965, L501.2450, L502.0250, L500.4050, L506.0400, L501.9520, L100.0100 #### [facility] [address] [place], [place], [id number] PSA,Total- Diagnosticon 05-15 PSA, DIAGNOSTIC 0.64 ng/mL Normal 0.0-4.0 [facility] Comment on above: Result Comment: This test was performed using the TPSA assay method for the [employer] chemistry system. Values obtained with different assay methods cannot be used interchangably. When changing PSA assays in the course of monitoring a patient, additional sequential testing should be carried out to confirm baseline values. Performed By: #### L 501.9985, L501.92480, L501.2450, L502.0250, L500.4050, L506.0400, L501.9520, L100.0100 #### [facility] [address] [facility] [place], [place], [phone] T4 Free Directon 05-29-2024 T4 FREE DIRECT 0.95 ng/dL Normal 0.76-1.46 [facility] Comment on above: Performed By: #### L 501.9985, L501.80246, L501.2450, L502.0250, L500.4050, L506.0400, L501.9520, L100.0100 #### [facility] [address] [facility] [place], [place], [phone] Thyroid Stim Hormone (TSH)on 05-29-2024 TSH 2.140 uIU/mL Normal 0.358-3.74 0 [facility] Comment on above: Performed By: #### L 501.9985, L501.94400, L501.2450, L502.0250, L500.4050, L506.0400, L501.9520, L100.0100 #### [facility] [address] [place], [place], [id number] Angiotensin Convert Enzymeon 05-13-2024 ANGIOT-CONV.ENZ 42 U/L Normal 14-82 [facility] Comment on above: Result Comment: Perf ormed at: [facility] [place] [phone] Telephone Order Supervisor: Abdulkadir Sahni PhD, Phone: [phone] Performed By: #### L 501.9985, L501.25106, L501.2450, L502.0250, L500.4050, L506.0400, L501.9520, L100.0100 #### [facility] [address] [place], [address] CBC W/Diff, Automatedon 10-2 Absolute Lymph 1.49 X10 3/uL Normal 0.83-4.51 [facility] Comment on above: Performed By: #### L 101.9900, L501.6710, L100.0100, L3100.6900 #### [facility] [address] [place], [address] Absolute Neut 2.6 X10 3/uL Normal 2.0-7.7 [facility] Comment on above: Performed By: #### L 101.9900, L501.6710, L100.0100, L3100.6900 #### [facility] [address] [place], [address] Basophils/100 WBC (Bld) 0.8 % Normal 0-1 [facility] Comment on above: Performed By: #### L 101.9900, L501.6710, L100.0100, L3100.6900 #### [facility] [address] [place], [address] Eosinophils/100 WBC (Bld) 2.3 % Normal 0-5 [facility] Comment on above: Performed By: #### L 101.9900, L501.6710, L100.0100, L3100.6900 #### [facility] [address] [place], [address] Erythrocyte distribution width (RBC) [Ratio] 13.5 % Normal 11.6-14.6 [facility] Comment on above: Performed By: #### L 101.9900, L501.6710, L100.0100, L3100.6900 #### [facility] [address] [place], [address] Hematocrit (Bld) [Volume fraction] 41.7 % Normal 40-54 [facility] Comment on above: Performed By: #### L 101.9900, L501.6710, L100.0100, L3100.6900 #### [facility] [address] [place], [address] Hemoglobin (Bld) [Mass/Vol] 13.7 g/dL Normal 13.0-16.5 [facility] Comment on above: Performed By: #### L 101.9900, L501.6710, L100.0100, L3100.6900 #### [facility] [address] [place], [address] IG% 0.400 Normal 0.0-0.9 [facility] Comment on above: Result Comment: IG% - Immature Granulocytes (promyelocytes, myelocytes and metamyelocytes) > 1% indicates that a LEFT SHIFT is Present. Performed By: #### L 101.9900, L501.6710, L100.0100, L3100.6900 #### [facility] [address] [place], [address] Lymphocytes/100 WBC (Bld) 30.8 % Normal 19-41 [facility] Comment on above: Performed By: #### L 101.9900, L501.6710, L100.0100, L3100.6900 #### [facility] [address] [place], [address] MCH (RBC) [Entitic mass] 29.4 pg Normal 27.0-32.0 [facility] Comment on above: Performed By: #### L 101.9900, L501.6710, L100.0100, L3100.6900 #### [facility] [address] [place], [address] MCHC (RBC) [Mass/Vol] 32.9 g/dL Normal 32-36 [facility] Comment on above: Performed By: #### L 101.9900, L501.6710, L100.0100, L3100.6900 #### [facility] [address] [place], [address] MCV (RBC) [Entitic vol] 89.5 fL Normal 80-94 [facility] Comment on above: Performed By: #### L 101.9900, L501.6710, L100.0100, L3100.6900 #### [facility] [address] [place], [address] Monocytes/100 WBC (Bld) 12.0 % High 0-10 [facility] Comment on above: Performed By: #### L 101.9900, L501.6710, L100.0100, L3100.6900 #### [facility] [address] [place], [address] Neutrophils/100 WBC (Bld) 53.7 % Normal 47-70 [facility] Comment on above: Performed By: #### L 101.9900, L501.6710, L100.0100, L3100.6900 #### [facility] [address] [place], [address] Nucleated RBC (Bld) [#/Vol] 0 10*3/uL Normal 0-5 [facility] Comment on above: Performed By: #### L 101.9900, L501.6710, L100.0100, L3100.6900 #### [facility] [address] [place], [address] Platelet mean volume (Bld) [Entitic vol] 9.9 fL Normal 6.2-12.0 [facility] Comment on above: Performed By: #### L 101.9900, L501.6710, L100.0100, L3100.6900 #### [facility] [address] [place], [address] Platelets (Bld) [#/Vol] 225 10*3/uL Normal 150-450 [facility] Comment on above: Performed By: #### L 101.9900, L501.6710, L100.0100, L3100.6900 #### [facility] [address] [place], [address] RBC (Bld) [#/Vol] 4.66 10*6/uL Normal 4.6-6.2 [facility] Comment on above: Performed By: #### L 101.9900, L501.6710, L100.0100, L3100.6900 #### [facility] [address] [place], [address] RDW SD 44.4 fl High 35.1-43.9 [facility] Comment on above: Performed By: #### L 101.9900, L501.6710, L100.0100, L3100.6900 #### [facility] [address] [place], [address] WBC (Bld) [#/Vol] 4.8 10*3/uL Normal 4.4-11.0 [facility] Comment on above: Performed By: #### L 101.9900, L501.6710, L100.0100, L3100.6900 #### [facility] [address] [place], [address] CRPon 05-11-2024 C-REACTIVE PROT < 2.90 Normal 0.0-3.0 [facility] Comment on above: Result Comment: C-Re active Protein (CRP) provides useful information for the diagnosis, therapy and monitoring of inflammatory processes and associated diseases. For the evaluation of Relative Risk for Cardiovascular Disease, a High Sensitivity CRP (HSCRP) should be ordered. Performed By: #### L 501.9985, L501.72225, L501.2450, L502.0250, L500.4050, L506.0400, L501.9520, L100.0100 #### [facility] [address] [place], [place], [id number] Erythrocyte Sed Rateon 05-11 SED RATE 10 mm/hr Normal 0-20 [facility] Comment on above: Performed By: #### L 501.9985, L501.16818, L501.2450, L502.0250, L500.4050, L506.0400, L501.9520, L100.0100 #### [facility] [address] [place], [place], [id number] Thin prep Papanicolaou smear with manual screeningOrdered By: All Gerber on 09-16-2023 Thin prep Papanicolaou smear with manual screening 118 mg/dL 74-106 [facility] Comment on above: MANAGEMENT OF PATIEN T CARE PER NURSING PROTOCOL Absolute lymphocyte countOrd ered By: Kyleigh Olmstead on 09-09-2023 Lymphocytes Auto (Unsp spec) [#/Vol] 1.99 10*3/uL 0.83-4.51 [facility] Automated lymphocyte count a s percentage of total leukocytesOrdered By: Kyleigh Olmstead on 09-09-2023 Lymphocytes/100 WBC Auto (Unsp spec) 27.5 % 19-41 [facility] Basophil percentageOrdered B y: Kyleigh Olmstead on 09-09-2023 Basophils/100 WBC (Bld) 0.6 % 0-1 [facility] Chloride [Moles/Vol] 104 mmol/L 98-107 [facility] Eosinophils/100 WBC (Bld) 1.5 % 0-5 [facility] Glucose [Mass/Vol] 113 mg/dL 74-106 [facility] Comment on above: Fasting Glucose resu lt from 100 to 125 mg/dL suggests IMPAIRED HOMEOSTASIS per A.D.A. criteria. Hemoglobin (Bld) [Mass/Vol] 15.3 g/dL 13.0-16.5 [facility] Monocytes/100 WBC (Bld) 10.0 % 0-10 [facility] Neutrophils (Bld) [#/Vol] 4.3 10*3/uL 2.0-7.7 [facility] Neutrophils/100 WBC (Bld) 59.8 % 47-70 [facility] Potassium [Moles/Vol] 3.7 mmol/L 3.5-5.1 [facility] Sodium [Moles/Vol] 138 mmol/L 136-145 [facility] WBC (Bld) [#/Vol] 7.2 10*3/uL 4.4-11.0 [facility] Determination of erythrocyte mean corpuscular volume (MCV)Ordered By: Kyleigh Olmstead on 09-09-2023 MCV (RBC) [Entitic vol] 84.0 fL 80-94 [facility] Erythrocyte distribution wid th ratioOrdered By: Kyleigh Olmstead on 09-09-2023 Erythrocyte distribution width (RBC) [Ratio] 14.3 % 11.6-14.6 [facility] Erythrocyte distribution wid th standard deviationOrdered By: Kyleigh Olmstead on 09-09-2023 Erythrocyte distribution width (RBC) [Entitic vol] 43.5 fL 35.1-43.9 [facility] Hematocrit Auto (Bld) [Volum e fraction]Ordered By: Kyleigh Olmstead on 09-09-2023 Hematocrit (Bld) [Volume fraction] 46.6 % 40-54 [facility] Immature granulocytes/100 WB C Auto (Bld)Ordered By: Kyleigh Olmstead on 09-09-2023 Immature granulocytes/100 WBC (Bld) 0.600 % 0.0-0.9 [facility] Comment on above: IG% - Immature Granu locytes (promyelocytes, myelocytes and metamyelocytes) > 1% indicates that a LEFT SHIFT is Present. Laboratory - Chemistry and C hemistry - challengeOrdered By: Kyleigh Olmstead on 09-09-2023 CO2 [Moles/Vol] 31.0 mmol/L 21.0-32.0 [facility] Urea nitrogen/Creatinine [Mass ratio] 12.4 mg/mg 10-20 [facility] - Hematology and Cell countsOrdered By: Kyleigh Olmstead on 09-09-2023 MCH (RBC) [Entitic mass] 27.6 pg 27.0-32.0 [facility] MCHC (RBC) [Mass/Vol] 32.8 g/dL 32-36 [facility] Nucleated RBC/100 WBC (Bld) [Ratio] 0 % 0-5 [facility] Platelet mean volume (Bld) [Entitic vol] 9.4 fL 6.2-12.0 [facility] Platelets (Bld) [#/Vol] 231 10*3/uL 150-450 [facility] No Panel InformationOrdered By: Kyleigh Olmstead on 09-09-2023 Estimated Creatinine Clearance Calc 108.24 ml/min [facility] Estimated GFR (MDRD) Amer 100 mL/min >60 [facility] Comment on above: GFR Calc Estimated GFR (MDRD) Non-Af Amer 83 mL/min >60 [facility] Comment on above: Non- GFR Calc RBC Auto (Bld) [#/Vol]Ordere d By: Kyleigh Olmstead on 09-09-2023 RBC (Bld) [#/Vol] 5.55 10*6/uL 4.6-6.2 [facility] Serum or plasma calcium malissa urement (mass/volume)Ordered By: Kyleigh Olmstead on 09-09-2023 Calcium [Mass/Vol] 9.5 mg/dL 8.5-10.1 [facility] Serum or plasma creatinine m easurement (mass/volume)Ordered By: Kyleigh Olmstead on 09-09-2023 Creatinine [Mass/Vol] 0.96 mg/dL 0.70-1.30 [facility] Comment on above: The validity of the calculated GFR & GFRAA in patients over 70 years has not been determined. Clinical correlation is essential. Serum or plasma thyroid stim ulating hormone (TSH) measurement (units/volume)Ordered By: Luiz Dawson on 09-09-2023 TSH Qn 4.50 uIU/mL 0.358-3.74 [facility] Serum or plasma urea nitroge n measurement (mass/volume)Ordered By: Kyleigh Olmstead on 09-09-2023 Urea nitrogen [Mass/Vol] 12 mg/dL 7-18 [facility] Thin prep Papanicolaou smear with manual screeningOrdered By: Kyleigh Olmstead on 09-09-2023 Thin prep Papanicolaou smear with manual screening 3 5-15 [facility] Whole blood hemoglobin A1c/t otal hemoglobin ratio (mass fraction)Ordered By: Luiz Dawson on 09-09-2023 HbA1c (Bld) [Mass fraction] 6.2 % 3.8-5.6 [facility] Comment on above: Normal < 5.7 % Predi abetic 5.7 - 6.4 % Diabetic >or= 6.5 % Please note range changes. Glucose Glucometer (BldC) [M ass/Vol]Ordered By: All eGrber on 06-21-2023 Glucose [Mass/Vol] 112 mg/dL 74-106 [facility] Comment on above: MANAGEMENT OF PATIEN T CARE PER NURSING PROTOCOL Absolute lymphocyte countOrd ered By: Shane Contreras on 05-24-2023 Lymphocytes Auto (Unsp spec) [#/Vol] 1.17 10*3/uL 0.83-4.51 [facility] Basophil percentageOrdered B y: Shane Contreras on 05-24-2023 Basophils/100 WBC (Bld) 0.4 % 0-1 [facility] Bilirubin [Mass/Vol] 0.50 mg/dL 0.20-1.00 [facility] Comment on above: For patients on eltr ombopag therapy, use of Dimension [place] TBIL is not recommended. Chloride [Moles/Vol] 106 mmol/L 98-107 [facility] Eosinophils/100 WBC (Bld) 3.3 % 0-5 [facility] Glucose [Mass/Vol] 116 mg/dL 74-106 [facility] Comment on above: Fasting Glucose resu lt from 100 to 125 mg/dL suggests IMPAIRED HOMEOSTASIS per A.D.A. criteria. Neutrophils (Bld) [#/Vol] 2.8 10*3/uL 2.0-7.7 [facility] Neutrophils/100 WBC (Bld) 60.0 % 47-70 [facility] Potassium [Moles/Vol] 3.8 mmol/L 3.5-5.1 [facility] Protein [Mass/Vol] 7.2 g/dL 6.4-8.2 [facility] Sodium [Moles/Vol] 136 mmol/L 136-145 [facility] WBC (Bld) [#/Vol] 4.6 10*3/uL 4.4-11.0 [facility] Blood erythrocytes count (nu mber/volume)Ordered By: Shane Contreras on 05-24-2023 RBC (Bld) [#/Vol] 4.15 10*6/uL 4.6-6.2 [facility] Blood hemoglobin measurement (mass/volume)Ordered By: Shane Contreras on 05-24-2023 Hemoglobin (Bld) [Mass/Vol] 12.3 g/dL 13.0-16.5 [facility] Blood lymphocytes/100 leukoc ytesOrdered By: Shane Contreras on 05-24-2023 Lymphocytes/100 WBC (Bld) 25.4 % 19-41 [facility] Blood monocytes/100 leukocyt esOrdered By: Shane Contreras on 05-24-2023 Monocytes/100 WBC (Bld) 9.8 % 0-10 [facility] Blood platelet mean volumeOr dered By: Shane Contreras on 05-24-2023 Platelet mean volume (Bld) [Entitic vol] 9.8 fL 6.2-12.0 [facility] Determination of erythrocyte mean corpuscular volume (MCV)Ordered By: Shane Contreras on 05-24-2023 MCV (RBC) [Entitic vol] 93.5 fL 80-94 [facility] Hematocrit Auto (Bld) [Volum e fraction]Ordered By: Shane Contreras on 05-24-2023 Hematocrit (Bld) [Volume fraction] 38.8 % 40-54 [facility] Laboratory - Chemistry and C hemistry - challengeOrdered By: Shane Contreras on 05-24-2023 ALP [Catalytic activity/Vol] 47 U/L 45-117 [facility] ALT [Catalytic activity/Vol] 37 U/L 16-61 [facility] CO2 [Moles/Vol] 28.0 mmol/L 21.0-32.0 [facility] Globulin (S) [Mass/Vol] 3.6 g/dL 2.2-4.2 [facility] Urea nitrogen/Creatinine [Mass ratio] 11.7 mg/mg 10-20 [facility] - Hematology and Cell countsOrdered By: Shane Contreras on 05-24-2023 Erythrocyte distribution width (RBC) [Entitic vol] 53.9 fL 35.1-43.9 [facility] Erythrocyte distribution width (RBC) [Ratio] 15.8 % 11.6-14.6 [facility] Immature granulocytes/100 WBC (Bld) 1.100 % 0.0-0.9 [facility] Comment on above: IG% - Immature Granu locytes (promyelocytes, myelocytes and metamyelocytes) > 1% indicates that a LEFT SHIFT is Present. MCH (RBC) [Entitic mass] 29.6 pg 27.0-32.0 [facility] Nucleated RBC/100 WBC (Bld) [Ratio] 0 % 0-5 [facility] MCHC Auto (RBC) [Mass/Vol]Or dered By: Shane Contreras on 05-24-2023 MCHC (RBC) [Mass/Vol] 31.7 g/dL 32-36 [facility] No Panel InformationOrdered By: Shane Contreras on 05-24-2023 Estimated GFR (MDRD) Amer 103 mL/min >60 [facility] Comment on above: GFR Calc Estimated GFR (MDRD) Non-Af Amer 85 mL/min >60 [facility] Comment on above: Non- GFR Calc Platelets bldOrdered By: Teressa Contreras on 05-24-2023 Platelets (Bld) [#/Vol] 243 10*3/uL 150-450 [facility] Serum or plasma albumin malissa urement (mass/volume)Ordered By: Shane Contreras on 05-24-2023 Albumin [Mass/Vol] 3.6 g/dL 3.2-5.0 [facility] Serum or plasma albumin/glob ulin mass ratioOrdered By: Shane Contreras on 05-24-2023 Albumin/Globulin [Mass ratio] 1.0 {ratio} 0.9-2.4 [facility] Serum or plasma calcium malissa urement (mass/volume)Ordered By: Shane Contreras on 05-24-2023 Calcium [Mass/Vol] 8.8 mg/dL 8.5-10.1 [facility] Serum or plasma creatinine m easurement (mass/volume)Ordered By: Shane Contreras on 05-24-2023 Creatinine [Mass/Vol] 0.94 mg/dL 0.70-1.30 [facility] Comment on above: The validity of the calculated GFR & GFRAA in patients over 70 years has not been determined. Clinical correlation is essential. Serum or plasma urea nitroge n measurement (mass/volume)Ordered By: Shane Contreras on 05-24-2023 Urea nitrogen [Mass/Vol] 11 mg/dL 7-18 [facility] Thin prep Papanicolaou smear with manual screeningOrdered By: Shnae Contreras on 05-24-2023 Thin prep Papanicolaou smear with manual screening 26 U/L 15-37 [facility] Thin prep Papanicolaou smear with manual screening 2 5-15 [facility] Absolute lymphocyte countOrd ered By: Todd Conner on 05-11-2023 Lymphocytes Auto (Unsp spec) [#/Vol] 1.24 10*3/uL 0.83-4.51 [facility] Basophil percentageOrdered B y: Todd Conner on 05-11-2023 Basophils/100 WBC (Bld) 0.4 % 0-1 [facility] Chloride [Moles/Vol] 109 mmol/L 98-107 [facility] Eosinophils/100 WBC (Bld) 3.5 % 0-5 [facility] Glucose [Mass/Vol] 115 mg/dL 74-106 [facility] Comment on above: Fasting Glucose resu lt from 100 to 125 mg/dL suggests IMPAIRED HOMEOSTASIS per A.D.A. criteria. Neutrophils (Bld) [#/Vol] 2.6 10*3/uL 2.0-7.7 [facility] Neutrophils/100 WBC (Bld) 57.2 % 47-70 [facility] Potassium [Moles/Vol] 3.7 mmol/L 3.5-5.1 [facility] Sodium [Moles/Vol] 140 mmol/L 136-145 [facility] WBC (Bld) [#/Vol] 4.6 10*3/uL 4.4-11.0 [facility] Blood erythrocytes count (nu mber/volume)Ordered By: Todd Conner on 05-11-2023 RBC (Bld) [#/Vol] 3.68 10*6/uL 4.6-6.2 [facility] Blood hemoglobin measurement (mass/volume)Ordered By: Todd Conner on 05-11-2023 Hemoglobin (Bld) [Mass/Vol] 10.7 g/dL 13.0-16.5 [facility] Blood lymphocytes/100 leukoc ytesOrdered By: Todd Conner on 05-11-2023 Lymphocytes/100 WBC (Bld) 26.9 % 19-41 [facility] Blood monocytes/100 leukocyt esOrdered By: Todd Conner on 05-11-2023 Monocytes/100 WBC (Bld) 11.1 % 0-10 [facility] Blood platelet mean volumeOr dered By: Todd Conner on 05-11-2023 Platelet mean volume (Bld) [Entitic vol] 9.6 fL 6.2-12.0 [facility] Determination of erythrocyte mean corpuscular volume (MCV)Ordered By: Todd Conner on 05-11-2023 MCV (RBC) [Entitic vol] 91.0 fL 80-94 [facility] Hematocrit Auto (Bld) [Volum e fraction]Ordered By: Todd Conner on 05-11-2023 Hematocrit (Bld) [Volume fraction] 33.5 % 40-54 [facility] Laboratory - Chemistry and C hemistry - challengeOrdered By: Todd Conner on 05-11-2023 CO2 [Moles/Vol] 27.0 mmol/L 21.0-32.0 [facility] Urea nitrogen/Creatinine [Mass ratio] 10.3 mg/mg 10-20 [facility] - Hematology and Cell countsOrdered By: Todd Conner on 05-11-2023 Erythrocyte distribution width (RBC) [Entitic vol] 46.8 fL 35.1-43.9 [facility] Erythrocyte distribution width (RBC) [Ratio] 14.0 % 11.6-14.6 [facility] Immature granulocytes/100 WBC (Bld) 0.900 % 0.0-0.9 [facility] Comment on above: IG% - Immature Granu locytes (promyelocytes, myelocytes and metamyelocytes) > 1% indicates that a LEFT SHIFT is Present. MCH (RBC) [Entitic mass] 29.1 pg 27.0-32.0 [facility] Nucleated RBC/100 WBC (Bld) [Ratio] 0 % 0-5 [facility] MCHC Auto (RBC) [Mass/Vol]Or dered By: Todd Conner on 05-11-2023 MCHC (RBC) [Mass/Vol] 31.9 g/dL 32-36 [facility] No Panel InformationOrdered By: Todd Conner on 05-11-2023 Estimated Creatinine Clearance Calc 91.58 ml/min [facility] Estimated GFR (MDRD) Amer 128 mL/min >60 [facility] Comment on above: GFR Calc Estimated GFR (MDRD) Non-Af Amer 106 mL/min >60 [facility] Comment on above: Non- GFR Calc Platelets bldOrdered By: Shani Conner on 05-11-2023 Platelets (Bld) [#/Vol] 246 10*3/uL 150-450 [facility] Serum or plasma calcium malissa urement (mass/volume)Ordered By: Todd Conner on 05-11-2023 Calcium [Mass/Vol] 8.2 mg/dL 8.5-10.1 [facility] Serum or plasma creatinine m easurement (mass/volume)Ordered By: Todd Conner on 05-11-2023 Creatinine [Mass/Vol] 0.78 mg/dL 0.70-1.30 [facility] Comment on above: The validity of the calculated GFR & GFRAA in patients over 70 years has not been determined. Clinical correlation is essential. Serum or plasma urea nitroge n measurement (mass/volume)Ordered By: oTdd Conner on 05-11-2023 Urea nitrogen [Mass/Vol] 8 mg/dL 7-18 [facility] Thin prep Papanicolaou smear with manual screeningOrdered By: Todd Conner on 05-11-2023 Thin prep Papanicolaou smear with manual screening 4 5-15 [facility] Basophil percentageOrdered B y: Woodrow Fox on 05-10-2023 Bilirubin [Mass/Vol] 1.10 mg/dL 0.20-1.00 [facility] Comment on above: For patients on eltr ombopag therapy, use of Dimension [place] TBIL is not recommended. Protein [Mass/Vol] 6.2 g/dL 6.4-8.2 [facility] Glucose Glucometer (BldC) [M ass/Vol]Ordered By: Todd Conner on 05-10-2023 Glucose [Mass/Vol] 134 mg/dL 74-106 [facility] Comment on above: MANAGEMENT OF PATIEN T CARE PER NURSING PROTOCOL Laboratory - Chemistry and C hemistry - challengeOrdered By: Woodrow Fox on 05-10-2023 ALP [Catalytic activity/Vol] 41 U/L 45-117 [facility] ALT [Catalytic activity/Vol] 18 U/L 16-61 [facility] Globulin (S) [Mass/Vol] 3.4 g/dL 2.2-4.2 [facility] Serum or plasma albumin malissa urement (mass/volume)Ordered By: Woodrow Fox on 05-10-2023 Albumin [Mass/Vol] 2.8 g/dL 3.2-5.0 [facility] Serum or plasma albumin/glob ulin mass ratioOrdered By: Woodrow Fox on 05-10-2023 Albumin/Globulin [Mass ratio] 0.8 {ratio} 0.9-2.4 [facility] Thin prep Papanicolaou smear with manual screeningOrdered By: Woodrow Fox on 05-10-2023 Thin prep Papanicolaou smear with manual screening 7 U/L 15-37 [facility] Absolute lymphocyte countOrd ered By: Calvin Guzman on 05-09-2023 Lymphocytes Auto (Unsp spec) [#/Vol] 1.61 10*3/uL 0.83-4.51 [facility] Basophil percentageOrdered B y: Calvin Guzman on 05-09-2023 Basophils/100 WBC (Bld) 0.3 % 0-1 [facility] Bilirubin [Mass/Vol] 1.20 mg/dL 0.20-1.00 [facility] Comment on above: For patients on eltr ombopag therapy, use of Dimension [place] TBIL is not recommended. Chloride [Moles/Vol] 106 mmol/L 98-107 [facility] Eosinophils/100 WBC (Bld) 0.6 % 0-5 [facility] Glucose [Mass/Vol] 117 mg/dL 74-106 [facility] Comment on above: Fasting Glucose resu lt from 100 to 125 mg/dL suggests IMPAIRED HOMEOSTASIS per A.D.A. criteria. Neutrophils (Bld) [#/Vol] 7.6 10*3/uL 2.0-7.7 [facility] Neutrophils/100 WBC (Bld) 73.6 % 47-70 [facility] Potassium [Moles/Vol] 3.6 mmol/L 3.5-5.1 [facility] Protein [Mass/Vol] 7.3 g/dL 6.4-8.2 [facility] Sodium [Moles/Vol] 142 mmol/L 136-145 [facility] WBC (Bld) [#/Vol] 10.3 10*3/uL 4.4-11.0 [facility] Blood erythrocytes count (nu mber/volume)Ordered By: Calvni Guzman on 05-09-2023 RBC (Bld) [#/Vol] 5.04 10*6/uL 4.6-6.2 [facility] Blood hemoglobin measurement (mass/volume)Ordered By: Calvin Guzman on 05-09-2023 Hemoglobin (Bld) [Mass/Vol] 14.7 g/dL 13.0-16.5 [facility] Blood lymphocytes/100 leukoc ytesOrdered By: Calvni Guzman on 05-09-2023 Lymphocytes/100 WBC (Bld) 15.6 % 19-41 [facility] Blood monocytes/100 leukocyt esOrdered By: Calvin Guzman on 05-09-2023 Monocytes/100 WBC (Bld) 9.5 % 0-10 [facility] Blood platelet mean volumeOr dered By: Calvin Guzman on 05-09-2023 Platelet mean volume (Bld) [Entitic vol] 9.2 fL 6.2-12.0 [facility] Clostridium difficile detect ion by polymerase chain reactionOrdered By: Calvin Guzman on 05-09-2023 C. difficile DNA FERNANDO+probe Ql (Unsp spec) [facility] C. difficile DNA FERNANDO+probe Ql (Unsp spec) [facility] Determination of erythrocyte mean corpuscular volume (MCV)Ordered By: Calvin Guzman on 05-09-2023 MCV (RBC) [Entitic vol] 88.3 fL 80-94 [facility] Hematocrit Auto (Bld) [Volum e fraction]Ordered By: Calvin Guzman on 05-09-2023 Hematocrit (Bld) [Volume fraction] 44.5 % 40-54 [facility] Laboratory - Chemistry and C hemistry - challengeOrdered By: Calvin Guzman on 05-09-2023 ALP [Catalytic activity/Vol] 52 U/L 45-117 [facility] ALT [Catalytic activity/Vol] 26 U/L 16-61 [facility] CO2 [Moles/Vol] 29.0 mmol/L 21.0-32.0 [facility] Globulin (S) [Mass/Vol] 3.6 g/dL 2.2-4.2 [facility] Urea nitrogen/Creatinine [Mass ratio] 12.5 mg/mg 10-20 [facility] Laboratory - Hematology and Cell countsOrdered By: Calvin Guzman on 05-09-2023 Erythrocyte distribution width (RBC) [Entitic vol] 45.1 fL 35.1-43.9 [facility] Erythrocyte distribution width (RBC) [Ratio] 14.0 % 11.6-14.6 [facility] Immature granulocytes/100 WBC (Bld) 0.400 % 0.0-0.9 [facility] Comment on above: IG% - Immature Granu locytes (promyelocytes, myelocytes and metamyelocytes) > 1% indicates that a LEFT SHIFT is Present. MCH (RBC) [Entitic mass] 29.2 pg 27.0-32.0 [facility] Nucleated RBC/100 WBC (Bld) [Ratio] 0 % 0-5 [facility] MCHC Auto (RBC) [Mass/Vol]Or dered By: Calvin Guzman on 05-09-2023 MCHC (RBC) [Mass/Vol] 33.0 g/dL 32-36 [facility] No Panel InformationOrdered By: Woodrow Fox on 05-09-2023 Giardia Antigen (TU) [facility] No Panel InformationOrdered By: Calvin Guzman on 05-09-2023 Estimated Creatinine Clearance Calc 104.06 ml/min [facility] Estimated GFR (MDRD) Amer 111 mL/min >60 [facility] Comment on above: GFR Calc Estimated GFR (MDRD) Non-Af Amer 92 mL/min >60 [facility] Comment on above: Non- GFR Calc Ova and parasitesOrdered By: Woodrow Fox on 05-09-2023 Ova and parasites identified LM Nom (Unsp spec) [facility] Platelets bldOrdered By: Tara Guzman on 05-09-2023 Platelets (Bld) [#/Vol] 329 10*3/uL 150-450 [facility] Serum or plasma albumin malissa urement (mass/volume)Ordered By: Calvin Guzman on 05-09-2023 Albumin [Mass/Vol] 3.7 g/dL 3.2-5.0 [facility] Serum or plasma albumin/glob ulin mass ratioOrdered By: Calvin Guzman on 05-09-2023 Albumin/Globulin [Mass ratio] 1.0 {ratio} 0.9-2.4 [facility] Serum or plasma calcium malissa urement (mass/volume)Ordered By: Calvin Guzman on 05-09-2023 Calcium [Mass/Vol] 9.1 mg/dL 8.5-10.1 [facility] Serum or plasma creatinine m easurement (mass/volume)Ordered By: Calvin Gumzan on 05-09-2023 Creatinine [Mass/Vol] 0.88 mg/dL 0.70-1.30 [facility] Comment on above: The validity of the calculated GFR & GFRAA in patients over 70 years has not been determined. Clinical correlation is essential. Serum or plasma urea nitroge n measurement (mass/volume)Ordered By: Calvin Guzman on 05-09-2023 Urea nitrogen [Mass/Vol] 11 mg/dL 7-18 [facility] Thin prep Papanicolaou smear with manual screeningOrdered By: Calvin Guzman on 05-09-2023 Thin prep Papanicolaou smear with manual screening 13 U/L 15-37 [facility] Thin prep Papanicolaou smear with manual screening 7 5-15 [facility] Absolute lymphocyte countOrd ered By: Dr. Contreras on 12-26-2022 Lymphocytes Auto (Unsp spec) [#/Vol] 1.23 10*3/uL 0.83-4.51 [facility] Basophil percentageOrdered B y: Dr. Contreras on 12-26-2022 Basophils/100 WBC (Bld) 0.7 % 0-1 [facility] Chloride [Moles/Vol] 100 mmol/L 98-107 [facility] Eosinophils/100 WBC (Bld) 0.5 % 0-5 [facility] Glucose [Mass/Vol] 109 mg/dL 74-106 [facility] Comment on above: Fasting Glucose resu lt from 100 to 125 mg/dL suggests IMPAIRED HOMEOSTASIS per A.D.A. criteria. Neutrophils (Bld) [#/Vol] 3.9 10*3/uL 2.0-7.7 [facility] Neutrophils/100 WBC (Bld) 67.2 % 47-70 [facility] Potassium [Moles/Vol] 4.1 mmol/L 3.5-5.1 [facility] Comment on above: Slight Hemolysis, Re sult may be falsely increased. Sodium [Moles/Vol] 135 mmol/L 136-145 [facility] WBC (Bld) [#/Vol] 5.8 10*3/uL 4.4-11.0 [facility] Blood erythrocytes count (nu mber/volume)Ordered By: Dr. Contreras on 12-26-2022 RBC (Bld) [#/Vol] 5.39 10*6/uL 4.6-6.2 [facility] Blood hemoglobin measurement (mass/volume)Ordered By: Dr. Contreras on 12-26-2022 Hemoglobin (Bld) [Mass/Vol] 16.1 g/dL 13.0-16.5 [facility] Blood lymphocytes/100 leukoc ytesOrdered By: Dr. Contreras on 12-26-2022 Lymphocytes/100 WBC (Bld) 21.1 % 19-41 [facility] Blood monocytes/100 leukocyt esOrdered By: Dr. Contreras on 12-26-2022 Monocytes/100 WBC (Bld) 9.8 % 0-10 [facility] Blood platelet mean volumeOr dered By: Dr. Contreras on 12-26-2022 Platelet mean volume (Bld) [Entitic vol] 9.7 fL 6.2-12.0 [facility] Determination of erythrocyte mean corpuscular volume (MCV)Ordered By: Dr. Contreras on 12-26-2022 MCV (RBC) [Entitic vol] 92.2 fL 80-94 [facility] Hematocrit Auto (Bld) [Volum e fraction]Ordered By: Dr. Contreras on 12-26-2022 Hematocrit (Bld) [Volume fraction] 49.7 % 40-54 [facility] Laboratory - Chemistry and C hemistry - challengeOrdered By: Dr. Contreras on 12-26-2022 CO2 [Moles/Vol] 29.0 mmol/L 21.0-32.0 [facility] Free T4 [Mass/Vol] 1.19 ng/dL 0.76-1.46 [facility] Magnesium [Mass/Vol] 1.8 mg/dL 1.6-2.6 [facility] Comment on above: Slight Hemolysis, Re sult may be falsely increased. Urea nitrogen/Creatinine [Mass ratio] 12.9 mg/mg 10-20 [facility] Laboratory - Hematology and Cell countsOrdered By: Dr. Contreras on 12-26-2022 Erythrocyte distribution width (RBC) [Entitic vol] 46.5 fL 35.1-43.9 [facility] Erythrocyte distribution width (RBC) [Ratio] 13.6 % 11.6-14.6 [facility] Immature granulocytes/100 WBC (Bld) 0.700 % 0.0-0.9 [facility] Comment on above: IG% - Immature Granu locytes (promyelocytes, myelocytes and metamyelocytes) > 1% indicates that a LEFT SHIFT is Present. MCH (RBC) [Entitic mass] 29.9 pg 27.0-32.0 [facility] Nucleated RBC/100 WBC (Bld) [Ratio] 0 % 0-5 [facility] MCHC Auto (RBC) [Mass/Vol]Or dered By: Dr. Contreras on 12-26-2022 MCHC (RBC) [Mass/Vol] 32.4 g/dL 32-36 [facility] No Panel InformationOrdered By: Dr. Contreras on 12-26-2022 Estimated GFR (MDRD) Amer 95 mL/min >60 [facility] Comment on above: GFR Calc Estimated GFR (MDRD) Non-Af Amer 79 mL/min >60 [facility] Comment on above: Non- GFR Calc Free Triiodothyronine (T3) pg/dL 3.2 pg/mL 2.18-3.98 [facility] Thyroid Stimulating Hormone (TSH) 1.58 uIU/mL 0.358-3.74 [facility] Platelets bldOrdered By: Dr. Contreras on 12-26-2022 Platelets (Bld) [#/Vol] 239 10*3/uL 150-450 [facility] Serum or plasma calcium malissa urement (mass/volume)Ordered By: Dr. Contreras on 12-26-2022 Calcium [Mass/Vol] 9.9 mg/dL 8.5-10.1 [facility] Serum or plasma creatinine m easurement (mass/volume)Ordered By: Dr. Contreras on 12-26-2022 Creatinine [Mass/Vol] 1.01 mg/dL 0.70-1.30 [facility] Comment on above: The validity of the calculated GFR & GFRAA in patients over 70 years has not been determined. Clinical correlation is essential. Serum or plasma urea nitroge n measurement (mass/volume)Ordered By: Dr. Contreras on 12-26-2022 Urea nitrogen [Mass/Vol] 13 mg/dL 7-18 [facility] Thin prep Papanicolaou smear with manual screeningOrdered By: Dr. Contreras on 12-26-2022 Thin prep Papanicolaou smear with manual screening 6 -15 [facility] Absolute lymphocyte countOrd ered By: Dr. Fine on 12-09-2022 Lymphocytes Auto (Unsp spec) [#/Vol] 1.87 10*3/uL 0.83-4.51 [facility] Basophil percentageOrdered B y: Dr. Fine on 12-09-2022 Basophils/100 WBC (Bld) 0.6 % 0-1 [facility] Eosinophils/100 WBC (Bld) 1.4 % 0-5 [facility] Neutrophils (Bld) [#/Vol] 4.2 10*3/uL 2.0-7.7 [facility] Neutrophils/100 WBC (Bld) 59.2 % 47-70 [facility] WBC (Bld) [#/Vol] 7.1 10*3/uL 4.4-11.0 [facility] Basophil percentageOrdered B y: Payton Mayorga on 12-09-2022 Bilirubin [Mass/Vol] 0.40 mg/dL 0.20-1.00 [facility] Comment on above: For patients on eltr ombopag therapy, use of Dimension [place] TBIL is not recommended. Chloride [Moles/Vol] 107 mmol/L 98-107 [facility] Glucose [Mass/Vol] 137 mg/dL 74-106 [facility] Comment on above: Fasting Glucose resu lt greater than or equal to 126 mg/dL suggests DIABETES MELLITUS per A.D.A. criteria. Potassium [Moles/Vol] 3.8 mmol/L 3.5-5.1 [facility] Protein [Mass/Vol] 7.4 g/dL 6.4-8.2 [facility] Sodium [Moles/Vol] 141 mmol/L 136-145 [facility] Blood erythrocytes count (nu mber/volume)Ordered By: Dr. Fine on 12-09-2022 RBC (Bld) [#/Vol] 4.85 10*6/uL 4.6-6.2 [facility] Blood hemoglobin measurement (mass/volume)Ordered By: Dr. Fine on 12-09-2022 Hemoglobin (Bld) [Mass/Vol] 14.5 g/dL 13.0-16.5 [facility] Blood lymphocytes/100 leukoc ytesOrdered By: Dr. Fine on 12-09-2022 Lymphocytes/100 WBC (Bld) 26.4 % 19-41 [facility] Blood monocytes/100 leukocyt esOrdered By: Dr. Fine on 12-09-2022 Monocytes/100 WBC (Bld) 11.8 % 0-10 [facility] Blood platelet mean volumeOr dered By: Dr. Fine on 12-09-2022 Platelet mean volume (Bld) [Entitic vol] 9.7 fL 6.2-12.0 [facility] Determination of erythrocyte mean corpuscular volume (MCV)Ordered By: Dr. Fine on 12-09-2022 MCV (RBC) [Entitic vol] 89.9 fL 80-94 [facility] Hematocrit Auto (Bld) [Volum e fraction]Ordered By: Dr. Fine on 12-09-2022 Hematocrit (Bld) [Volume fraction] 43.6 % 40-54 [facility] Laboratory - Chemistry and C hemistry - challengeOrdered By: Payton Mayorga on 12-09-2022 ALP [Catalytic activity/Vol] 70 U/L 45-117 [facility] ALT [Catalytic activity/Vol] 27 U/L 16-61 [facility] CO2 [Moles/Vol] 27.0 mmol/L 21.0-32.0 [facility] Globulin (S) [Mass/Vol] 3.6 g/dL 2.2-4.2 [facility] Urea nitrogen/Creatinine [Mass ratio] 10.8 mg/mg 10-20 [facility] Laboratory - Hematology and Cell countsOrdered By: Dr. Fine on 12-09-2022 Erythrocyte distribution width (RBC) [Entitic vol] 44.3 fL 35.1-43.9 [facility] Erythrocyte distribution width (RBC) [Ratio] 13.3 % 11.6-14.6 [facility] Immature granulocytes/100 WBC (Bld) 0.600 % 0.0-0.9 [facility] Comment on above: IG% - Immature Granu locytes (promyelocytes, myelocytes and metamyelocytes) > 1% indicates that a LEFT SHIFT is Present. MCH (RBC) [Entitic mass] 29.9 pg 27.0-32.0 [facility] Nucleated RBC/100 WBC (Bld) [Ratio] 0 % 0-5 [facility] MCHC Auto (RBC) [Mass/Vol]Or dered By: Dr. Fine on 12-09-2022 MCHC (RBC) [Mass/Vol] 33.3 g/dL 32-36 [facility] No Panel InformationOrdered By: Payton Mayorga on 12-09-2022 Troponin I High Sensitivity 6 pg/mL 3.0-78.0 [facility] Comment on above: Please Note: New Filomena t Units and Gender Specific Reference Ranges. For more information see Policy Stat Procedure [place] High Sensitivity Troponin (TNIH) and attachments. D-Dimer Quantitative (PE/DVT) 0.29 FEU/ug/m 0.27-0.49 [facility] Comment on above: NORMAL D-Dimer level (<0.50) indicates no DVT or PE. Estimated Creatinine Clearance Calc 89.78 ml/min [facility] Estimated GFR (MDRD) Amer 94 mL/min >60 [facility] Comment on above: GFR Calc Estimated GFR (MDRD) Non-Af Amer 78 mL/min >60 [facility] Comment on above: Non- GFR Calc Platelets bldOrdered By: Dr. Fine on 12-09-2022 Platelets (Bld) [#/Vol] 223 10*3/uL 150-450 [facility] Serum or plasma albumin malissa urement (mass/volume)Ordered By: Payton Mayorga on 12-09-2022 Albumin [Mass/Vol] 3.8 g/dL 3.2-5.0 [facility] Serum or plasma albumin/glob ulin mass ratioOrdered By: Payton Mayorga on 12-09-2022 Albumin/Globulin [Mass ratio] 1.1 {ratio} 0.9-2.4 [facility] Serum or plasma calcium malissa urement (mass/volume)Ordered By: Payton Mayorga on 12-09-2022 Calcium [Mass/Vol] 8.7 mg/dL 8.5-10.1 [facility] Serum or plasma creatinine m easurement (mass/volume)Ordered By: Payton Mayorga on 12-09-2022 Creatinine [Mass/Vol] 1.02 mg/dL 0.70-1.30 [facility] Comment on above: The validity of the calculated GFR & GFRAA in patients over 70 years has not been determined. Clinical correlation is essential. Serum or plasma urea nitroge n measurement (mass/volume)Ordered By: Payton Mayorga on 12-09-2022 Urea nitrogen [Mass/Vol] 11 mg/dL 7-18 [facility] Thin prep Papanicolaou smear with manual screeningOrdered By: Payton Mayorga on 12-09-2022 Thin prep Papanicolaou smear with manual screening 16 U/L 15-37 [facility] Thin prep Papanicolaou smear with manual screening 7 5-15 [facility] Basophil percentageOrdered B y: Dr. Stephens on 11-19-2022 Bilirubin [Mass/Vol] 0.90 mg/dL 0.20-1.00 [facility] Comment on above: For patients on eltr ombopag therapy, use of Dimension [place] TBIL is not recommended. Chloride [Moles/Vol] 100 mmol/L 98-107 [facility] Glucose [Mass/Vol] 105 mg/dL 74-106 [facility] Comment on above: Fasting Glucose resu lt from 100 to 125 mg/dL suggests IMPAIRED HOMEOSTASIS per A.D.A. criteria. Potassium [Moles/Vol] 3.7 mmol/L 3.5-5.1 [facility] Protein [Mass/Vol] 7.5 g/dL 6.4-8.2 [facility] Sodium [Moles/Vol] 135 mmol/L 136-145 [facility] WBC (Bld) [#/Vol] 6.0 10*3/uL 4.4-11.0 [facility] Blood erythrocytes count (nu mber/volume)Ordered By: Dr. Stephens on 11-19-2022 RBC (Bld) [#/Vol] 5.27 10*6/uL 4.6-6.2 [facility] Blood hemoglobin measurement (mass/volume)Ordered By: Dr. Stephens on 11-19-2022 Hemoglobin (Bld) [Mass/Vol] 15.5 g/dL 13.0-16.5 [facility] Blood platelet mean volumeOr dered By: Dr. Stephens on 11-19-2022 Platelet mean volume (Bld) [Entitic vol] 10.2 fL 6.2-12.0 [facility] Determination of erythrocyte mean corpuscular volume (MCV)Ordered By: Dr. Stephens on 11-19-2022 MCV (RBC) [Entitic vol] 90.1 fL 80-94 [facility] Erythrocyte sedimentation ra teOrdered By: Dr. Stephens on 11-19-2022 ESR (Bld) [Velocity] 14 mm/h 0-20 [facility] Hematocrit Auto (Bld) [Volum e fraction]Ordered By: Dr. Stephens on 11-19-2022 Hematocrit (Bld) [Volume fraction] 47.5 % 40-54 [facility] Laboratory - Chemistry and C hemistry - challengeOrdered By: Dr. Stephens on 11-19-2022 ALP [Catalytic activity/Vol] 43 U/L 45-117 [facility] ALT [Catalytic activity/Vol] 33 U/L 16-61 [facility] CO2 [Moles/Vol] 29.0 mmol/L 21.0-32.0 [facility] Globulin (S) [Mass/Vol] 3.4 g/dL 2.2-4.2 [facility] Urea nitrogen/Creatinine [Mass ratio] 13.1 mg/mg 10-20 [facility] Laboratory - Hematology and Cell countsOrdered By: Dr. Stephens on 11-19-2022 Erythrocyte distribution width (RBC) [Entitic vol] 43.0 fL 35.1-43.9 [facility] Erythrocyte distribution width (RBC) [Ratio] 13.1 % 11.6-14.6 [facility] MCH (RBC) [Entitic mass] 29.4 pg 27.0-32.0 [facility] MCHC Auto (RBC) [Mass/Vol]Or dered By: Dr. Stephens on 11-19-2022 MCHC (RBC) [Mass/Vol] 32.6 g/dL 32-36 [facility] No Panel InformationOrdered By: Dr. Stephens on 11-19-2022 Estimated GFR (MDRD) Amer 97 mL/min >60 [facility] Comment on above: GFR Calc Estimated GFR (MDRD) Non-Af Amer 80 mL/min >60 [facility] Comment on above: Non- GFR Calc Platelets bldOrdered By: Dr. Stephens on 11-19-2022 Platelets (Bld) [#/Vol] 256 10*3/uL 150-450 [facility] Serum or plasma C reactive p rotein measurement (mass/volume)Ordered By: Dr. Stephens on 11-19-2022 CRP [Mass/Vol] mg/L 0.0-3.0 [facility] Comment on above: C-Reactive Protein ( CRP) provides useful information for thediagnosis, therapy and monitoring of inflammatory processesand associated diseases. For the evaluation of Relative Riskfor Cardiovascular Disease, a High Sensitivity CRP (HSCRP)should be ordered. Serum or plasma albumin malissa urement (mass/volume)Ordered By: Dr. Stephens on 11-19-2022 Albumin [Mass/Vol] 4.1 g/dL 3.2-5.0 [facility] Serum or plasma albumin/glob ulin mass ratioOrdered By: Dr. Stephens on 11-19-2022 Albumin/Globulin [Mass ratio] 1.2 {ratio} 0.9-2.4 [facility] Serum or plasma calcium malissa urement (mass/volume)Ordered By: Dr. Stephens on 11-19-2022 Calcium [Mass/Vol] 9.1 mg/dL 8.5-10.1 [facility] Serum or plasma creatinine m easurement (mass/volume)Ordered By: Dr. Stephens on 11-19-2022 Creatinine [Mass/Vol] 1.00 mg/dL 0.70-1.30 [facility] Comment on above: The validity of the calculated GFR & GFRAA in patients over 70 years has not been determined. Clinical correlation is essential. Serum or plasma urea nitroge n measurement (mass/volume)Ordered By: Dr. Stephens on 11-19-2022 Urea nitrogen [Mass/Vol] 13 mg/dL 7-18 [facility] Thin prep Papanicolaou smear with manual screeningOrdered By: Dr. Stephens on 11-19-2022 Thin prep Papanicolaou smear with manual screening 22 U/L 15-37 [facility] Thin prep Papanicolaou smear with manual screening 6 5-15 [facility] Basophil percentageOrdered B y: Dr. Contreras on 11-09-2022 Chloride [Moles/Vol] 106 mmol/L 98-107 [facility] Cholesterol [Mass/Vol] 107 mg/dL <200 [facility] Comment on above: <200 mg/dL Desirable 200-240 mg/dL Borderline >240 mg/dL High Risk Glucose [Mass/Vol] 117 mg/dL 74-106 [facility] Comment on above: Fasting Glucose resu lt from 100 to 125 mg/dL suggests IMPAIRED HOMEOSTASIS per A.D.A. criteria. Potassium [Moles/Vol] 3.8 mmol/L 3.5-5.1 [facility] Sodium [Moles/Vol] 136 mmol/L 136-145 [facility] Triglyceride [Mass/Vol] 129 mg/dL <199 [facility] Comment on above: The drugs N-Acetylcy steine and Metamizole may falsely depress this assay.Serum Triglycerides Reference Interval Normal <150 mg/dL Borderline high 150 - 199 mg/dL High 200 - 499 mg/dL Very High > or = 500 mg/dL Laboratory - Chemistry and C hemistry - challengeOrdered By: Dr. Contreras on 11-09-2022 CO2 [Moles/Vol] 25.0 mmol/L 21.0-32.0 [facility] Free T4 [Mass/Vol] 1.09 ng/dL 0.76-1.46 [facility] Urea nitrogen/Creatinine [Mass ratio] 16.8 mg/mg 10-20 [facility] No Panel InformationOrdered By: Dr. Contreras on 11-09-2022 Estimated GFR (MDRD) Amer 101 mL/min >60 [facility] Comment on above: GFR Calc Estimated GFR (MDRD) Non-Af Amer 84 mL/min >60 [facility] Comment on above: Non- GFR Calc Free Triiodothyronine (T3) pg/dL 3.0 pg/mL 2.18-3.98 [facility] Thyroid Stimulating Hormone (TSH) 1.85 uIU/mL 0.358-3.74 [facility] Serum or plasma calcium malissa urement (mass/volume)Ordered By: Dr. Contreras on 11-09-2022 Calcium [Mass/Vol] 9.2 mg/dL 8.5-10.1 [facility] Serum or plasma cholesterol in HDL measurement (mass/volume)Ordered By: Dr. Contreras on 11-09-2022 Cholesterol in HDL [Mass/Vol] 45 mg/dL >40 [facility] Comment on above: The drugs N-Acetylcy steine and Metamizole may falsely depress this assay. Reference Range HDL <40 mg/dL Low HDL Cholesterol HDL >or= 60 mg/dL High HDL Cholesterol Serum or plasma cholesterol in VLDL measurement (mass/volume)Ordered By: Dr. Contreras on 11-09-2022 Cholesterol in VLDL [Mass/Vol] 26 mg/dL 5-40 [facility] Serum or plasma creatinine m easurement (mass/volume)Ordered By: Dr. Contreras on 11-09-2022 Creatinine [Mass/Vol] 0.96 mg/dL 0.70-1.30 [facility] Comment on above: The validity of the calculated GFR & GFRAA in patients over 70 years has not been determined. Clinical correlation is essential. Serum or plasma low density lipoprotein (LDL) cholesterol measurement (mass/volume)Ordered By: Dr. Contreras on 11-09-2022 Cholesterol in LDL [Mass/Vol] 36 mg/dL 0-130 [facility] Serum or plasma urea nitroge n measurement (mass/volume)Ordered By: Dr. Contreras on 11-09-2022 Urea nitrogen [Mass/Vol] 16 mg/dL 7-18 [facility] Thin prep Papanicolaou smear with manual screeningOrdered By: Dr. Contreras on 11-09-2022 Thin prep Papanicolaou smear with manual screening 5 5-15 [facility] No Panel InformationOrdered By: ELVIRA Pacheco on 09-24-2022 Prostate Specific Antigen Screen 0.71 ng/mL 0.00-4.00 [facility] Comment on above: This test was perfor med using the TPSA assay method for the[employer] chemistry system. Values obtained with differentassay methods cannot be used interchangably.When changing PSA assays in the course of monitoring apatient, additional sequential testing should be carriedout to confirm baseline values. Serum or plasma uric acid me asurement (mass/volume)Ordered By: Dr. Contreras on 06-27-2022 Urate [Mass/Vol] 5.3 mg/dL 3.5-7.2 [facility] Comment on above: The drugs N-Acetylcy steine and Metamizole may falsely depress this assay. Laboratory - Microbiology an d Antimicrobial susceptibilityon 06-13-2022 SARS-CoV-2 (COVID-19) RNA FERNANDO+probe Ql (Unsp spec) Detected [facility] No Panel Informationon 06-13 POC Nasal Swab Influenza A,B Not detected [facility] POC Nasal Swab RSV Not detected [facility] Basophil percentageon 2021 Chloride [Moles/Vol] 102 mmol/L 98-107 [facility] Work Phone: Cholesterol [Mass/Vol] 200 mg/dL <200 [facility] Work Phone: Comment on above: <200 mg/dL Desirable 200-240 mg/dL Borderline >240 mg/dL High Risk Glucose [Mass/Vol] 99 mg/dL 74-106 [facility] Work Phone: Potassium [Moles/Vol] 3.5 mmol/L 3.5-5.1 [facility] Work Phone: [phone] Sodium [Moles/Vol] 136 mmol/L 136-145 [facility] Work Phone: [phone] Testosterone [Mass/Vol] 354.33 ng/dL [facility] Work Phone: [phone] Comment on above: CENTRAL 90% REFERENC E RANGES MALE AGE <50 197.44 - 669.58 ng/dL MALE AGE > or = 50 187.72 - 684.19 ng/dL FEMALE AGE <50 8.38 - 35.01 ng/dL FEMALE AGE > or = 50 <7.00 - 35.92 ng/dL Effective as of 02/07/21 Triglyceride [Mass/Vol] 220 mg/dL <199 [facility] Work Phone: Comment on above: The drugs N-Acetylcy steine and Metamizole may falsely depress this assay.Serum Triglycerides Reference Interval Normal <150 mg/dL Borderline high 150 - 199 mg/dL High 200 - 499 mg/dL Very High > or = 500 mg/dL Laboratory - Chemistry and C hemistry - challengeon 05-09-2022 CO2 [Moles/Vol] 26.0 mmol/L 21.0-32.0 [facility] Work Phone: [phone] Free T4 [Mass/Vol] 0.99 ng/dL 0.76-1.46 [facility] Work Phone: [phone] Urea nitrogen/Creatinine [Mass ratio] 13.5 mg/mg 10-20 [facility] Work Phone: No Panel Informationon 05-09 Estimated GFR (MDRD) Amer 110 mL/min >60 [facility] Work Phone: Comment on above: GFR Calc Estimated GFR (MDRD) Non-Af Amer 91 mL/min >60 [facility] Work Phone: Comment on above: Non- GFR Calc Free Triiodothyronine (T3) pg/dL 2.9 pg/mL 2.18-3.98 [facility] Work Phone: Thyroid Stimulating Hormone (TSH) 2.17 uIU/mL 0.358-3.74 [facility] Work Phone: [phone] Urine Microalbumin/Creatini ne Ratio TNP [facility] Work Phone: Comment on above: Test not performed Serum or plasma calcium malissa urement (mass/volume)on 05-09-2022 Calcium [Mass/Vol] 8.9 mg/dL 8.5-10.1 [facility] Work Phone: Serum or plasma cholesterol in HDL measurement (mass/volume)on 05-09-2022 Cholesterol in HDL [Mass/Vol] 43 mg/dL >40 [facility] Work Phone: Comment on above: The drugs N-Acetylcy steine and Metamizole may falsely depress this assay. Reference Range HDL <40 mg/dL Low HDL Cholesterol HDL >or= 60 mg/dL High HDL Cholesterol Serum or plasma cholesterol in VLDL measurement (mass/volume)on 05-09-2022 Cholesterol in VLDL [Mass/Vol] 44 mg/dL 5-40 [facility] Work Phone: [phone] Serum or plasma creatinine m easurement (mass/volume)on 05-09-2022 Creatinine [Mass/Vol] 0.89 mg/dL 0.70-1.30 [facility] Work Phone: Comment on above: The validity of the calculated GFR & GFRAA in patients over 70 years has not been determined. Clinical correlation is essential. Serum or plasma low density lipoprotein (LDL) cholesterol measurement (mass/volume)on 05-09-2022 Cholesterol in LDL [Mass/Vol] 113 mg/dL 0-130 [facility] Work Phone: [phone] Serum or plasma urea nitroge n measurement (mass/volume)on 05-09-2022 Urea nitrogen [Mass/Vol] 12 mg/dL 7-18 [facility] Work Phone: [phone] Thin prep Papanicolaou smear with manual screeningon 05-09-2022 Thin prep Papanicolaou smear with manual screening 8 5-15 [facility] Work Phone: [phone] Thin prep Papanicolaou smear with manual screening < 5.0 mg/L NO RANGE EST. [facility] Work Phone: [phone] Urine creatinine measurement (mass/volume)on 05-09-2022 Creatinine (U) [Mass/Vol] 68.00 mg/dL NO RANGE EST. [facility] Work Phone: [phone] Whole blood hemoglobin A1c/t otal hemoglobin ratio (mass fraction)on 05-09-2022 HbA1c (Bld) [Mass fraction] 5.9 % 3.8-5.6 [facility] Work Phone: [phone] Comment on above: Normal < 5.7 % Predi abetic 5.7 - 6.4 % Diabetic >or= 6.5 % Please note range changes. Basophil percentageon 2021 Chloride [Moles/Vol] 100 mmol/L 98-107 [facility] Work Phone: [phone] Cholesterol [Mass/Vol] 189 mg/dL <200 [facility] Work Phone: [phone] Comment on above: <200 mg/dL Desirable 200-240 mg/dL Borderline >240 mg/dL High Risk Glucose [Mass/Vol] 102 mg/dL 74-106 [facility] Work Phone: [phone] Comment on above: Fasting Glucose resu lt from 100 to 125 mg/dL suggests IMPAIRED HOMEOSTASIS per A.D.A. criteria. Potassium [Moles/Vol] 3.6 mmol/L 3.5-5.1 [facility] Work Phone: [phone] Sodium [Moles/Vol] 136 mmol/L 136-145 [facility] Work Phone: [phone] Triglyceride [Mass/Vol] 114 mg/dL [facility] Work Phone: Comment on above: The drugs N-Acetylcy steine and Metamizole may falsely depress this assay.Serum Triglycerides Reference Interval Normal <150 mg/dL Borderline high 150 - 199 mg/dL High 200 - 499 mg/dL Very High > or = 500 mg/dL Laboratory - Chemistry and C hemistry - challengeon 11-06-2021 CO2 [Moles/Vol] 30.0 mmol/L 21.0-32.0 [facility] Work Phone: [phone] Free T4 [Mass/Vol] 1.16 ng/dL 0.76-1.46 [facility] Work Phone: [phone] Urea nitrogen/Creatinine [Mass ratio] 18.0 mg/mg 10-20 [facility] Work Phone: [phone] No Panel Informationon 11-06 Estimated GFR (MDRD) Amer 110 mL/min >60 [facility] Work Phone: Comment on above: GFR Calc Estimated GFR (MDRD) Non-Af Amer 91 mL/min >60 [facility] Work Phone: Comment on above: Non- GFR Calc Free Triiodothyronine (T3) pg/dL 3.2 pg/mL 2.18-3.98 [facility] Work Phone: [phone] Thyroid Stimulating Hormone (TSH) 1.43 uIU/mL 0.358-3.74 [facility] Work Phone: [phone] Serum or plasma calcium malissa urement (mass/volume)on 11-06-2021 Calcium [Mass/Vol] 9.3 mg/dL 8.5-10.1 [facility] Work Phone: [phone] Serum or plasma cholesterol in HDL measurement (mass/volume)on 11-06-2021 Cholesterol in HDL [Mass/Vol] 46 mg/dL [facility] Work Phone: [phone] Comment on above: The drugs N-Acetylcy steine and Metamizole may falsely depress this assay. Reference Range HDL <40 mg/dL Low HDL Cholesterol HDL >or= 60 mg/dL High HDL Cholesterol Serum or plasma cholesterol in VLDL measurement (mass/volume)on 11-06-2021 Cholesterol in VLDL [Mass/Vol] 23 mg/dL 5-40 [facility] Work Phone: Serum or plasma creatinine m easurement (mass/volume)on 11-06-2021 Creatinine [Mass/Vol] 0.89 mg/dL 0.70-1.30 [facility] Work Phone: Comment on above: The validity of the calculated GFR & GFRAA in patients over 70 years has not been determined. Clinical correlation is essential. Serum or plasma low density lipoprotein (LDL) cholesterol measurement (mass/volume)on 11-06-2021 Cholesterol in LDL [Mass/Vol] 120 mg/dL 0-130 [facility] Work Phone: Serum or plasma urea nitroge n measurement (mass/volume)on 11-06-2021 Urea nitrogen [Mass/Vol] 16 mg/dL 7-18 [facility] Work Phone: Thin prep Papanicolaou smear with manual screeningon 11-06-2021 Thin prep Papanicolaou smear with manual screening 6 5-15 [facility] Work Phone: Clinical Summary: [facility] MC25 Plastics Invalid Interpretation Code [facility] Work Phone: Clinical Summary: [facility] 10-[facility] 25 Plastics Invalid Interpretation Code [facility] Work Phone: CULTURE ANAEROBEon 2 CULTURE ANAEROBE CULTURE ANAEROBE --> Status: F No growth of anaerobes at 5 days. Normal [facility] Comment on above: Performed By: #### C S/BA #### [place] [address] [place] [address] [id number] #### S/GRM, C/SONNY #### [place] [address] [address] [place] [address] CULT./ST. BACTERIAon 022 CULT./ST. BACTERIA CULT./ST. BACTERIA - -> Status: F Mixed respiratory kathya present. 1 Organism Streptococcus intermedius (anginosus group) Few -- 1 Organism -- Antibiotic Result Intrp -- Ampicillin(TU) <= 0.25 S Ceftriaxone(TU) <= 0.12 S Clindamycin(TU) >= 1 R Vancomycin(TU) 0.5 S Penicillin-G(TU) <= 0.06 S Normal [facility] Comment on above: Performed By: #### C S/BA #### [place] [address] [place], [place] [id number] #### S/GRM, C/SONNY #### [place] [address] Clinical Summary: [place] 10-02-2021 MC25 Plastics Invalid Interpretation Code [facility] Work [facility]: Gram Stainon 10-02-2021 Gram Stain Result Rare polymorphonucle ar cells/lpf. Few gram positive cocci in pairs and chains. Rare gram positive bacilli. [facility] Test Performed by [facility], [address] [place] [address] LAB [facility] STAIN GRAMon 10-02-2021 STAIN GRAM STAIN GRAM --> Statu s: F Rare polymorphonuclear cells/lpf. Few gram positive cocci in pairs and chains. Rare gram positive bacilli. Few gram positive cocci in pairs and chains. Rare gram positive bacilli. Normal [facility] Comment on above: Performed By: #### C S/MED #### [address] [address] [id number] #### S/KENISHA, C/SONNY #### [address] [address] Surgical Pathologyon 022 Surgical Pathology [id number] FOR[facility] DEPARTMENT OF [facility] PATHOLOGY AND LABORATORY MEDICINE [address] [place] [id number] FINAL SURGICAL PATHOLOGY REPORT NAME: TANI WILLIAMSON : 1955 66 Y [facility] NO.: [id number] LOCATION: 1SPO PROCEDURE 10/02/2021 DATE: SURGEON: SEBASTIAN [...] is bisected and submitted in one cassette. BS/KMS1 Disclaimer: The following statement applies to all immunohistochemistry, in situ hybridization, molecular studies, and immunofluorescence testing. The use of one or more reagents in the above tests is regulated as an analyte specific reagent (ASR). These tests were developed and their performance characteristics determined by the clinical laboratories of [facility]. They have not been cleared by the [...] negativity on decalcified specimens. Professional Performing Location: [address] [address]. DEPARTMENT OF PATHOLOGY AND LABORATORY MEDICINE [place], [place] [address] [email or web address] Normal [facility] Clinical Summary: [place] 09-29-2021 MC25 OP Hand Invalid Interpretation Code [facility] Work Phone: Office Visit: New - 1st visi t with practice, Rm: 10on 09-29-2021 Tobacco smoking status Tobacco smoking status Invalid Interpretation Code [facility] Work Phone: NEGATED: Highlighted rowTobacco smoking status Tobacco smoking status Invalid Interpretation Code [facility] Work Phone: Absolute lymphocyte counton 09-06-2021 Lymphocytes Auto (Unsp spec) [#/Vol] 1.34 10*3/uL 0.83-4.51 [facility] Work Phone: Basophil percentageon 2021 Basophils/100 WBC (Bld) 0.4 % 0-1 [facility] Work Phone: Bilirubin [Mass/Vol] 1.30 mg/dL 0.20-1.00 [facility] Work Phone: Comment on above: For patients on eltr ombopag therapy, use of Dimension [place] TBIL is not recommended. Chloride [Moles/Vol] 97 mmol/L 98-107 [facility] Work Phone: Cholesterol [Mass/Vol] 205 mg/dL <200 [facility] Work Phone: Comment on above: <200 mg/dL Desirable 200-240 mg/dL Borderline >240 mg/dL High Risk Eosinophils/100 WBC (Bld) 0.7 % 0-5 [facility] Work Phone: Glucose [Mass/Vol] 131 mg/dL 74-106 [facility] Work Phone: Comment on above: Fasting Glucose resu lt greater than or equal to 126 mg/dL suggests DIABETES MELLITUS per A.D.A. criteria. Neutrophils (Bld) [#/Vol] 4.5 10*3/uL 2.0-7.7 [facility] Work Phone: Neutrophils/100 WBC (Bld) 67.6 % 47-70 [facility] Work Phone: [phone] Potassium [Moles/Vol] 3.7 mmol/L 3.5-5.1 [facility] Work Phone: [phone] Protein [Mass/Vol] 8.2 g/dL 6.4-8.2 [facility] Work Phone: [phone] Sodium [Moles/Vol] 132 mmol/L 136-145 [facility] Work Phone: [phone] Testosterone [Mass/Vol] 236.01 ng/dL [facility] Work Phone: [phone] Comment on above: CENTRAL 90% REFERENC E RANGES MALE AGE <50 197.44 - 669.58 ng/dL MALE AGE > or = 50 187.72 - 684.19 ng/dL FEMALE AGE <50 8.38 - 35.01 ng/dL FEMALE AGE > or = 50 <7.00 - 35.92 ng/dL Effective as of 02/07/21 Triglyceride [Mass/Vol] 116 mg/dL [facility] Work Phone: [phone] Comment on above: The drugs N-Acetylcy steine and Metamizole may falsely depress this assay.Serum Triglycerides Reference Interval Normal <150 mg/dL Borderline high 150 - 199 mg/dL High 200 - 499 mg/dL Very High > or = 500 mg/dL WBC (Bld) [#/Vol] 6.7 10*3/uL 4.4-11.0 [facility] Work Phone: [phone] Blood erythrocytes count (nu mber/volume)on 09-06-2021 RBC (Bld) [#/Vol] 5.52 10*6/uL 4.6-6.2 [facility] Work Phone: [phone] Blood hemoglobin measurement (mass/volume)on 09-06-2021 Hemoglobin (Bld) [Mass/Vol] 17.1 g/dL 13.0-16.5 [facility] Work Phone: Blood lymphocytes/100 leukoc yteson 09-06-2021 Lymphocytes/100 WBC (Bld) 20.1 % 19-41 [facility] Work Phone: Blood monocytes/100 leukocyt eson 09-06-2021 Monocytes/100 WBC (Bld) 10.3 % 0-10 [facility] Work Phone: [phone] Blood platelet mean volumeon 09-06-2021 Platelet mean volume (Bld) [Entitic vol] 9.8 fL 6.2-12.0 [facility] Work Phone: [phone] Determination of erythrocyte mean corpuscular volume (MCV)on 09-06-2021 MCV (RBC) [Entitic vol] 90.2 fL 80-94 [facility] Work Phone: [phone] Hematocrit Auto (Bld) [Volum e fraction]on 09-06-2021 Hematocrit (Bld) [Volume fraction] 49.8 % 40-54 [facility] Work Phone: [phone] Laboratory - Chemistry and C hemistry - challengeon 09-06-2021 ALP [Catalytic activity/Vol] 58 U/L 45-117 [facility] Work Phone: [phone] ALT [Catalytic activity/Vol] 114 U/L 16-61 [facility] Work Phone: [phone] CO2 [Moles/Vol] 26.0 mmol/L 21.0-32.0 [facility] Work Phone: [phone] Globulin (S) [Mass/Vol] 4.1 g/dL 2.2-4.2 [facility] Work Phone: [phone] Urea nitrogen/Creatinine [Mass ratio] 13.5 mg/mg 10-20 [facility] Work Phone: [phone] Laboratory - Hematology and Cell countson 09-06-2021 Erythrocyte distribution width (RBC) [Entitic vol] 43.6 fL 35.1-43.9 [facility] Work Phone: [phone] Erythrocyte distribution width (RBC) [Ratio] 13.2 % 11.6-14.6 [facility] Work Phone: [phone] Immature granulocytes/100 WBC (Bld) 0.900 % 0.0-0.9 [facility] Work Phone: [phone] Comment on above: IG% - Immature Granu locytes (promyelocytes, myelocytes and metamyelocytes) > 1% indicates that a LEFT SHIFT is Present. MCH (RBC) [Entitic mass] 31.0 pg 27.0-32.0 [facility] Work Phone: [phone] Nucleated RBC/100 WBC (Bld) [Ratio] 0 % 0-5 [facility] Work Phone: [phone] MCHC Auto (RBC) [Mass/Vol]on 09-06-2021 MCHC (RBC) [Mass/Vol] 34.3 g/dL 32-36 [facility] Work Phone: [phone] Panel Informationon 09-06 Estimated GFR (MDRD) Amer 92 mL/min >60 [facility] Work Phone: [phone] Comment on above: GFR Calc Estimated GFR (MDRD) Non-Af Amer 76 mL/min >60 [facility] Work Phone: [phone] Comment on above: Non- GFR Calc Prostate Specific Antigen Total 0.58 ng/mL 0.0-4.0 [facility] Work Phone: [phone] Comment on above: This test was perfor med using the TPSA assay method for [employer] chemistry system. Values obtained with differentassay methods cannot be used interchangably.When changing PSA assays in the course of monitoring apatient, additional sequential testing should be carriedout to confirm baseline values. Thyroid Stimulating Hormone (TSH) 5.58 uIU/mL 0.358-3.74 [facility] Work Phone: [phone] Platelets bldon 09-06-2021 Platelets (Bld) [#/Vol] 284 10*3/uL 150-450 [facility] Work Phone: [phone] Serum or plasma albumin malissa urement (mass/volume)on 09-06-2021 Albumin [Mass/Vol] 4.1 g/dL 3.2-5.0 [facility] Work Phone: [phone] Serum or plasma albumin/glob ulin mass ratioon 09-06-2021 Albumin/Globulin [Mass ratio] 1.0 {ratio} 0.9-2.4 [facility] Work Phone: Serum or plasma calcium malissa urement (mass/volume)on 09-06-2021 Calcium [Mass/Vol] 9.2 mg/dL 8.5-10.1 [facility] Work Phone: Serum or plasma cholesterol in HDL measurement (mass/volume)on 09-06-2021 Cholesterol in HDL [Mass/Vol] 58 mg/dL [facility] Work Phone: Comment on above: The drugs N-Acetylcy steine and Metamizole may falsely depress this assay. Reference Range HDL <40 mg/dL Low HDL Cholesterol HDL >or= 60 mg/dL High HDL Cholesterol Serum or plasma cholesterol in VLDL measurement (mass/volume)on 09-06-2021 Cholesterol in VLDL [Mass/Vol] 23 mg/dL 5-40 [facility] Work Phone: Serum or plasma creatinine m easurement (mass/volume)on 09-06-2021 Creatinine [Mass/Vol] 1.04 mg/dL 0.70-1.30 [facility] Work Phone: Comment on above: The validity of the calculated GFR & GFRAA in patients over 70 years has not been determined. Clinical correlation is essential. Serum or plasma low density lipoprotein (LDL) cholesterol measurement (mass/volume)on 09-06-2021 Cholesterol in LDL [Mass/Vol] 124 mg/dL 0-130 [facility] Work Phone: Serum or plasma urea nitroge n measurement (mass/volume)on 09-06-2021 Urea nitrogen [Mass/Vol] 14 mg/dL 7-18 [facility] Work Phone: [phone] Thin prep Papanicolaou smear with manual screeningon 09-06-2021 Thin prep Papanicolaou smear with manual screening 61 U/L 15-37 [facility] Work Phone: [phone] Thin prep Papanicolaou smear with manual screening 9 5-15 [facility] Work Phone: [phone] Whole blood hemoglobin A1c/t otal hemoglobin ratio (mass fraction)on 09-06-2021 HbA1c (Bld) [Mass fraction] 6.1 % 3.8-5.6 [facility] Work Phone: Comment on above: Normal < 5.7 % Predi abetic 5.7 - 6.4 % Diabetic >or= 6.5 % Please note range changes. Absolute lymphocyte counton 08-31-2021 Lymphocytes Auto (Unsp spec) [#/Vol] 1.32 10*3/uL 0.83-4.51 [facility] Work Phone: Basophil percentageon 2021 Basophil percentage 0 SEEN /hpf [facility] Work Phone: Basophils/100 WBC (Bld) 0.8 % 0-1 [facility] Work Phone: Bilirubin [Mass/Vol] 0.60 mg/dL 0.20-1.00 [facility] Work Phone: Comment on above: For patients on eltr ombopag therapy, use of Dimension [place] TBIL is not recommended. Chloride [Moles/Vol] 103 mmol/L 98-107 [facility] Work Phone: Eosinophils/100 WBC (Bld) 0.6 % 0-5 [facility] Work Phone: Glucose [Mass/Vol] 136 mg/dL 74-106 [facility] Work Phone: Comment on above: Fasting Glucose resu lt greater than or equal to 126 mg/dL suggests DIABETES MELLITUS per A.D.A. criteria. Neutrophils (Bld) [#/Vol] 4.2 10*3/uL 2.0-7.7 [facility] Work Phone: Neutrophils/100 WBC (Bld) 66.4 % 47-70 [facility] Work Phone: Potassium [Moles/Vol] 3.7 mmol/L 3.5-5.1 [facility] Work Phone: Protein [Mass/Vol] 7.6 g/dL 6.4-8.2 [facility] Work Phone: Sodium [Moles/Vol] 136 mmol/L 136-145 [facility] Work Phone: WBC (Bld) [#/Vol] 6.3 10*3/uL 4.4-11.0 [facility] Work Phone: Bilirubin Test strip Ql (U)o n 08-31-2021 Bilirubin Ql (U) Negative Negative [facility] Work Phone: Blood erythrocytes count (nu mber/volume)on 08-31-2021 RBC (Bld) [#/Vol] 5.13 10*6/uL 4.6-6.2 [facility] Work Phone: Blood hemoglobin measurement (mass/volume)on 08-31-2021 Hemoglobin (Bld) [Mass/Vol] 15.5 g/dL 13.0-16.5 [facility] Work Phone: Blood lymphocytes/100 leukoc yteson 08-31-2021 Lymphocytes/100 WBC (Bld) 21.0 % 19-41 [facility] Work Phone: Blood monocytes/100 leukocyt eson 08-31-2021 Monocytes/100 WBC (Bld) 10.2 % 0-10 [facility] Work Phone: Blood platelet mean volumeon 08-31-2021 Platelet mean volume (Bld) [Entitic vol] 9.6 fL 6.2-12.0 [facility] Work Phone: Determination of erythrocyte mean corpuscular volume (MCV)on 08-31-2021 MCV (RBC) [Entitic vol] 89.7 fL 80-94 [facility] Work Phone: Hematocrit Auto (Bld) [Volum e fraction]on 08-31-2021 Hematocrit (Bld) [Volume fraction] 46.0 % 40-54 [facility] Work Phone: Ketones Test strip Ql (U)on 08-31-2021 Ketones Ql (U) Negative Negative [facility] Work Phone: Laboratory - Chemistry and C hemistry - challengeon 08-31-2021 Lipase [Catalytic activity/Vol] 42 U/L 73-393 [facility] Work Phone: ALP [Catalytic activity/Vol] 69 U/L 45-117 [facility] Work Phone: [phone] ALT [Catalytic activity/Vol] 111 U/L 16-61 [facility] Work Phone: [phone] CO2 [Moles/Vol] 28.0 mmol/L 21.0-32.0 [facility] Work Phone: [phone] Globulin (S) [Mass/Vol] 3.7 g/dL 2.2-4.2 [facility] Work Phone: [phone] Urea nitrogen/Creatinine [Mass ratio] 12.4 mg/mg 10-20 [facility] Work Phone: [phone] Laboratory - Hematology and Cell countson 08-31-2021 Erythrocyte distribution width (RBC) [Entitic vol] 43.2 fL 35.1-43.9 [facility] Work Phone: [phone] Erythrocyte distribution width (RBC) [Ratio] 13.2 % 11.6-14.6 [facility] Work Phone: [phone] Immature granulocytes/100 WBC (Bld) 1.000 % 0.0-0.9 [facility] Work Phone: [phone] Comment on above: IG% - Immature Granu locytes (promyelocytes, myelocytes and metamyelocytes) > 1% indicates that a LEFT SHIFT is Present. MCH (RBC) [Entitic mass] 30.2 pg 27.0-32.0 [facility] Work Phone: Nucleated RBC/100 WBC (Bld) [Ratio] 0 % 0-5 [facility] Work Phone: [phone] MCHC Auto (RBC) [Mass/Vol]on 08-31-2021 MCHC (RBC) [Mass/Vol] 33.7 g/dL 32-36 [facility] Work Phone: [phone] Mucus LM Ql (Urine sed)on Mucus Ql (Urine sed) 0 SEEN /hpf [facility] Work Phone: Nitrite Test strip Ql (U)on 08-31-2021 Nitrite Ql (U) Negative Negative [facility] Work Phone: No Panel Informationon 08-31 Estimated Creatinine Clearance Calc 95.68 ml/min [facility] Work Phone: Estimated GFR (MDRD) Amer 100 mL/min >60 [facility] Work Phone: Comment on above: GFR Calc Estimated GFR (MDRD) Non-Af Amer 83 mL/min >60 [facility] Work Phone: Comment on above: Non- GFR Calc Platelets bldon 08-31-2021 Platelets (Bld) [#/Vol] 228 10*3/uL 150-450 [facility] Work Phone: Protein Test strip Ql (U)on 08-31-2021 Protein Ql (U) Negative Negative [facility] Work Phone: Serum or plasma albumin malissa urement (mass/volume)on 08-31-2021 Albumin [Mass/Vol] 3.9 g/dL 3.2-5.0 [facility] Work Phone: [phone] Serum or plasma albumin/glob ulin mass ratioon 08-31-2021 Albumin/Globulin [Mass ratio] 1.1 {ratio} 0.9-2.4 [facility] Work Phone: [phone] Serum or plasma calcium malissa urement (mass/volume)on 08-31-2021 Calcium [Mass/Vol] 9.2 mg/dL 8.5-10.1 [facility] Work Phone: [phone] Serum or plasma creatinine m easurement (mass/volume)on 08-31-2021 Creatinine [Mass/Vol] 0.97 mg/dL 0.70-1.30 [facility] Work Phone: Comment on above: The validity of the calculated GFR & GFRAA in patients over 70 years has not been determined. Clinical correlation is essential. Serum or plasma urea nitroge n measurement (mass/volume)on 08-31-2021 Urea nitrogen [Mass/Vol] 12 mg/dL 7-18 [facility] Work Phone: Squamous epithelial cells de tection in urine sediment by light microscopyon 08-31-2021 Epithelial cells.squamous LM Ql (Urine sed) 0 SEEN /hpf [facility] Work Phone: Thin prep Papanicolaou smear with manual screeningon 08-31-2021 Thin prep Papanicolaou smear with manual screening 59 U/L 15-37 [facility] Work Phone: Thin prep Papanicolaou smear with manual screening 5 5-15 [facility] Work Phone: Urine blood detectionon 08-15 RBC Ql (U) Negative Negative [facility] Work Phone: RBC Ql (U) 0 SEEN /hpf [facility] Work Phone: Urine clarityon 08-31-2021 Clarity (U) Clear Clear [facility] Work Phone: Urine color determinationon 08-31-2021 Color (U) Yellow Yellow [facility] Work Phone: Urine glucose detectionon Glucose Ql (U) Normal mg/dl Normal [facility] Work Phone: Urine leukocyte esterase det ection by dipstickon 08-31-2021 Leukocyte esterase Test strip Ql (U) Negative Negative [facility] Work Phone: Urine pHon 08-31-2021 pH (U) 8.0 [pH] [facility] Work Phone: Urine sediment bacteria coun t by microscopy (number/high power field)on 08-31-2021 Bacteria LM.HPF (Urine sed) [#/Area] 0 /[HPF] None Seen [facility] Work Phone: Urine specific gravity measu rementon 08-31-2021 Specific gravity (U) [Rel density] 1.010 [facility] Work Phone: Urobilinogen Auto test strip Ql (U)on 08-31-2021 Urobilinogen Ql (U) Normal mg/dl Normal [facility] Work Phone: Final Surgical Pathology Rep kathleen 10-15-2018 Final Surgical Pathology Report . Pathology Reports Accession: Collected Date/Time: Received Date/Time: Pathologist: [id number] 10/14/2018 10:21 EDT 10/14/2018 13:02 EDT DO [...] vessels. RS -1 Dictated by Ada STONER ([facility]) MICROSCOPIC DESCRIPTION: Slides reviewed. Electronically Signed by Pathology Report verified by [facility] Electronically signed by PATRICE RICHTER DO Sign out Date: 10/15/2018 14:32 Performing Lab: [facility], [address] [place] [address] ([place]) Comment on above: Performed By: #### S PFR #### [place] [address] Vital Signs Date Time Vital Sign Value Performing Clinician Facility 01-29-2025 11:00-0400 Body temperature 98.5 [degF] Dr. Shane Contreras MD Work Phone: [facility] 01-29-2025 11:00-0400 Diastolic blood pressure 74 mm[Hg] Dr. Shane Contreras MD Work Phone: [facility] 01-29-2025 11:00-0400 Heart rate 73 /min Dr. Shane Contreras MD Work Phone: [facility] 01-29-2025 11:00-0400 Respiratory rate 16 /min Dr. Shane Contreras MD Work Phone: [facility] 01-29-2025 11:00-0400 SaO2% (BldA) [Mass fraction] 95 % Dr. Shane Contreras MD Work Phone: [facility] 01-29-2025 11:00-0400 Systolic blood pressure 117 mm[Hg] Dr. Shane Contreras MD Work Phone: [facility] 01-29-2025 08:46-0400 Body height 195.[address] Shane Contreras MD Work Phone: [facility] 01-29-2025 08:46-0400 Body mass index (BMI) [Ratio] 34.1 kg/m2 Dr. Shane Contreras MD Work Phone: [facility] 01-29-2025 08:46-0400 Body weight 130.[address] Shane Contreras MD Work Phone: [facility] 09-16-2023 20:50-0500 Body temperature 97.4 [degF] Dr. Shane Contreras Work Phone: [facility] 09-16-2023 20:50-0500 Diastolic blood pressure 72 mm[Hg] Dr. Shane Contreras Work Phone: [facility] 09-16-2023 20:50-0500 Heart rate 79 /min Dr. Shane Contreras Work Phone: [facility] 09-16-2023 20:50-0500 Respiratory rate 18 /min Dr. Shane Contreras Work Phone: [facility] 09-16-2023 20:50-0500 SaO2% (BldA) [Mass fraction] 92 % Dr. Shane Contreras Work Phone: [facility] 09-16-2023 20:50-0500 Systolic blood pressure 107 mm[Hg] Dr. Shane Contreras Work Phone: [facility] 09-16-2023 18:45-0500 Inhaled oxygen flow rate 2 L/min Dr. Shane Contreras Work Phone: [facility] 09-16-2023 14:04-0500 Body height 195.[address] Shane Contreras Work Phone: [facility] 09-16-2023 14:04-0500 Body mass index (BMI) [Ratio] 31.1 kg/m2 Dr. Shane Contreras Work Phone: [facility] 09-16-2023 14:04-0500 Body weight 119.[address] Shane Contreras Work Phone: [facility] 09-13-2023 12:50-0500 Body weight 123.[address] Shane Contreras Work Phone: [facility] 09-13-2023 12:50-0500 Body temperature 97.9 [degF] Dr. Shane Contreras Work Phone: [phone] [address] 09-13-2023 12:50-0500 Diastolic blood pressure 85 mm[Hg] Dr. Shane Contreras Work Phone: [phone] [place] [address] 09-13-2023 12:50-0500 Heart rate 90 /min Dr. Shane Contreras Work Phone: [phone] [address] 09-13-2023 12:50-0500 Respiratory rate 18 /min Dr. Shane Contreras Work Phone: [phone] [address] 09-13-2023 12:50-0500 SaO2% (BldA) [Mass fraction] 93 % Dr. Shane Contreras Work Phone: [phone] [place] [address] 09-13-2023 12:50-0500 Systolic blood pressure 140 mm[Hg] Dr. Shane Contreras Work Phone: [phone] [place] [address] 09-10-2023 08:08-0500 Body mass index (BMI) [Ratio] 32.3 kg/m2 Dr. Shane Contreras Work Phone: 6(002)[phone] [address] 09-10-2023 08:08-0500 Body temperature 97.8 [degF] Dr. Shane Contreras Work Phone: 4(926)[phone] [place] [address] 09-10-2023 08:08-0500 Body weight 123.[address] Shane Contreras Work Phone: 4(319)068-879834 [place] [address] 09-10-2023 08:08-0500 Diastolic blood pressure 88 mm[Hg] Dr. Shane Contreras Work Phone: [facility] 09-10-2023 08:08-0500 Heart rate 88 /min Dr. Shane Contreras Work Phone: [facility] 09-10-2023 08:08-0500 Respiratory rate 18 /min Dr. Shane Contreras Work Phone: [facility] 09-10-2023 08:08-0500 SaO2% (BldA) [Mass fraction] 95 % Dr. Shane Contreras Work Phone: [facility] 09-10-2023 08:08-0500 Systolic blood pressure 133 mm[Hg] Dr. Shane Contreras Work Phone: [facility] 09-09-2023 22:26-0500 Body temperature 97.8 [degF] Dr. Shane Contreras Work Phone: [facility] 09-09-2023 22:26-0500 Diastolic blood pressure 80 mm[Hg] Dr. Shane Contreras Work Phone: [facility] 09-09-2023 22:26-0500 Heart rate 78 /min Dr. Shane Contreras Work Phone: [facility] 09-09-2023 22:26-0500 Respiratory rate 16 /min Dr. Shane Contreras Work Phone: [facility] 09-09-2023 22:26-0500 SaO2% (BldA) [Mass fraction] 97 % Dr. Shane Contreras Work Phone: [facility] 09-09-2023 22:26-0500 Systolic blood pressure 129 mm[Hg] Dr. Shane Contreras Work Phone: [facility] 09-09-2023 20:20-0500 Body mass index (BMI) [Ratio] 32 kg/m2 Dr. Shane Contreras Work Phone: [facility] 09-09-2023 20:20-0500 Body weight 122.[address] Shane Contreras Work Phone: [facility] 06-21-2023 07:20-0500 Body temperature 98.4 [degF] Dr. Shane Contreras Work Phone: [facility] 06-21-2023 07:20-0500 Diastolic blood pressure 76 mm[Hg] Dr. Shane Contreras Work Phone: [facility] 06-21-2023 07:20-0500 Heart rate 76 /min Dr. Shane Contreras Work Phone: [facility] 06-21-2023 07:20-0500 Respiratory rate 18 /min Dr. Shane Contreras Work Phone: [facility] 06-21-2023 07:20-0500 SaO2% (BldA) [Mass fraction] 98 % Dr. Shane Contreras Work Phone: [facility] 06-21-2023 07:20-0500 Systolic blood pressure 122 mm[Hg] Dr. Shane Contreras Work Phone: [facility] 06-21-2023 05:46-0500 Body height 195.[address] Shane Contreras Work Phone: [facility] 06-21-2023 05:46-0500 Body mass index (BMI) [Ratio] 30.8 kg/m2 Dr. Shane Contreras Work Phone: [facility] 06-21-2023 05:46-0500 Body weight 118.[address] Shane Contreras Work Phone: [facility] 06-20-2023 12:56-0500 Body mass index (BMI) [Ratio] 31.2 kg/m2 Dr. Shane Contreras Work Phone: [facility] 06-20-2023 12:56-0500 Body temperature 97.4 [degF] Dr. Shane Contreras Work Phone: [facility] 06-20-2023 12:56-0500 Body weight 119.[address] Shane Contreras Work Phone: [facility] 06-20-2023 12:56-0500 Diastolic blood pressure 80 mm[Hg] Dr. Shane Contreras Work Phone: [facility] 06-20-2023 12:56-0500 Heart rate 92 /min Dr. Shane Contreras Work Phone: [facility] 06-20-2023 12:56-0500 Respiratory rate 18 /min Dr. Shane Contreras Work Phone: 2(432)443-852944 [address] 06-20-2023 12:56-0500 SaO2% (BldA) [Mass fraction] 95 % Dr. Shane Contreras Work Phone: 3(373)357-642334 [place] [address] 06-20-2023 12:56-0500 Systolic blood pressure 153 mm[Hg] Dr. Shane Contreras Work Phone: 5(943)370-985434 [place] [address] 05-11-2023 14:46-0400 Body temperature 98.4 [degF] Dr. Shane Contreras Work Phone: [facility] 05-11-2023 14:46-0400 Diastolic blood pressure 75 mm[Hg] Dr. Shane Contreras Work Phone: 7(138)891-386544 [address] 05-11-2023 14:46-0400 Heart rate 80 /min Dr. Shane Contreras Work Phone: 0(145)958-128744 [address] 05-11-2023 14:46-0400 Respiratory rate 16 /min Dr. Shane Contreras Work Phone: [facility] 05-11-2023 14:46-0400 SaO2% (BldA) [Mass fraction] 96 % Dr. Shane Contreras Work Phone: 1(318)936-682334 [place] [address] 05-11-2023 14:46-0400 Systolic blood pressure 134 mm[Hg] Dr. Shane Contreras Work Phone: [facility] 05-10-2023 10:20-0400 Body height 195.[address] Shane Contreras Work Phone: [facility] 05-10-2023 10:20-0400 Body weight 120.[address] Shane Contreras Work Phone: [facility] 05-09-2023 22:41-0400 Body mass index (BMI) [Ratio] 31.4 kg/m2 Dr. Shane Contreras Work Phone: [facility] 05-09-2023 21:39-0400 Body temperature 99.3 [degF] Dr. Shane Contreras Work Phone: [facility] 05-09-2023 21:39-0400 Diastolic blood pressure 86 mm[Hg] Dr. Shane Contreras Work Phone: 8(851)305-945034 [place] [address] 05-09-2023 21:39-0400 Heart rate 86 /min Dr. Shane Contreras Work Phone: 0(916)[phone] [place] [address] 05-09-2023 21:39-0400 Respiratory rate 14 /min Dr. Shane Contreras Work Phone: 1(819)115-293934 [place] [address] 05-09-2023 21:39-0400 SaO2% (BldA) [Mass fraction] 92 % Dr. Shane Contreras Work Phone: [facility] 05-09-2023 21:39-0400 Systolic blood pressure 134 mm[Hg] Dr. Shane Contreras Work Phone: [facility] 05-09-2023 19:01-0400 Body height 195.[address] Shane Contreras Work Phone: [facility] 05-09-2023 19:01-0400 Body mass index (BMI) [Ratio] 32 kg/m2 Dr. Shane Contreras Work Phone: [facility] 05-09-2023 19:01-0400 Body weight 122.[address] Shane Contreras Work Phone: [facility] 04-20-2023 09:33-0400 Body mass index (BMI) [Ratio] 33.7 kg/m2 Dr. Shane Contreras Work Phone: [facility] 04-20-2023 09:33-0400 Body temperature 98.4 [degF] Dr. Shane Contreras Work Phone: [facility] 04-20-2023 09:33-0400 Body weight 128.[address] Shane Contreras Work Phone: [facility] 04-20-2023 09:33-0400 Diastolic blood pressure 84 mm[Hg] Dr. Shane Contreras Work Phone: [facility] 04-20-2023 09:33-0400 Heart rate 69 /min Dr. Shane Contreras Work Phone: [facility] 04-20-2023 09:33-0400 Respiratory rate 16 /min Dr. Shane Contreras Work Phone: [facility] 04-20-2023 09:33-0400 SaO2% (BldA) [Mass fraction] 94 % Dr. Shane Contreras Work Phone: [facility] 04-20-2023 09:33-0400 Systolic blood pressure 142 mm[Hg] Dr. Shane Contreras Work Phone: [facility] 02-28-2023 12:18-0400 Body height 195.6 cm Dane Pruitt MD Work Phone: [facility] 02-28-2023 12:18-0400 Body mass index (BMI) [Ratio] 32.75 kg/m2 Dane Pruitt MD Work Phone: [facility] 02-28-2023 12:18-0400 Body weight 125.28 kg Dane Pruitt MD Work Phone: [facility] 02-28-2023 12:18-0400 Diastolic blood pressure 67 mm[Hg] Dane Pruitt MD Work Phone: [facility] 02-28-2023 12:18-0400 Heart rate 86 /min Dane Pruitt MD Work Phone: [facility] 02-28-2023 12:18-0400 Respiratory rate 16 /min Dane Pruitt MD Work Phone: [facility] 02-28-2023 12:18-0400 SaO2% (BldA) [Mass fraction] 95 % Dane Pruitt MD Work Phone: [facility] Comment on above: Supine 96% to sittin g 96% by MD at bedside 02-28-2023 12:18-0400 Systolic blood pressure 142 mm[Hg] Dane Pruitt MD Work Phone: [facility] 12-17-2022 13:02-0400 Body height 195.[address] Shane Contreras Work Phone: [facility] 12-17-2022 13:02-0400 Body mass index (BMI) [Ratio] 31.8 kg/m2 Dr. Shane Contreras Work Phone: [facility] 12-17-2022 13:02-0400 Body weight 121.[address] Shane Contreras Work Phone: [facility] 12-17-2022 13:02-0400 Diastolic blood pressure 74 mm[Hg] Dr. Shane Contreras Work Phone: [facility] 12-17-2022 13:02-0400 Heart rate 74 /min Dr. Shane Contreras Work Phone: [facility] 12-17-2022 13:02-0400 Respiratory rate 16 /min Dr. Shane Contreras Work Phone: [facility] 12-17-2022 13:02-0400 Systolic blood pressure 121 mm[Hg] Dr. Shane Contreras Work Phone: [facility] 12-09-2022 17:59-0400 Diastolic blood pressure 92 mm[Hg] [facility] 12-09-2022 17:59-0400 Heart rate 71 /min [facility] 05-28-2023 17:59-0400 Respiratory rate 18 /min [facility] 12-09-2022 17:59-0400 SaO2% (BldA) [Mass fraction] 96 % [facility] 12-09-2022 17:59-0400 Systolic blood pressure 152 mm[Hg] [facility] 12-09-2022 15:40-0400 Body height 195.58 cm [facility] 12-09-2022 15:40-0400 Body mass index (BMI) [Ratio] 32.5 kg/m2 [facility] 12-09-2022 15:40-0400 Body temperature 97.4 [degF] [facility] 12-09-2022 15:40-0400 Body weight 124.73 kg [facility] 06-13-2022 06:18-0500 Body temperature 98.1 [degF] Dr. Shane Contreras Work Phone: [facility] 06-13-2022 06:18-0500 Diastolic blood pressure 82 mm[Hg] Dr. Shane Contreras Work Phone: [facility] 06-13-2022 06:18-0500 Heart rate 87 /min Dr. Shane Contreras Work Phone: [facility] 06-13-2022 06:18-0500 Respiratory rate 14 /min Dr. Shane Contreras Work Phone: [facility] 06-13-2022 06:18-0500 SaO2% (BldA) [Mass fraction] 98 % Dr. Shane Contreras Work Phone: [facility] 06-13-2022 06:18-0500 Systolic blood pressure 134 mm[Hg] Dr. Shane Contreras Work Phone: [facility] 10-31-2021 13:54-0400 Body height 195.[address] Shane Contreras Work Phone: [facility] Work Phone: 10-31-2021 13:54-0400 Body mass index (BMI) [Ratio] 32.5 kg/m2 Dr. Shane Contreras Work Phone: [facility] Work Phone: 10-31-2021 13:54-0400 Body weight 124.[address] Shane Contreras Work Phone: [facility] Work Phone: 10-31-2021 13:54-0400 Diastolic blood pressure 61 mm[Hg] Dr. Shane Contreras Work Phone: [facility] Work Phone: 10-31-2021 13:54-0400 Heart rate 86 /min Dr. Shane Contreras Work Phone: [facility] Work Phone: 10-31-2021 13:54-0400 Respiratory rate 16 /min Dr. Shane Contreras Work Phone: [facility] Work Phone: 10-31-2021 13:54-0400 Systolic blood pressure 102 mm[Hg] Dr. Shane Contreras Work Phone: [facility] Work Phone: 09-15-2021 12:07-0500 Body mass index (BMI) [Ratio] 33.4 kg/m2 Dr. Shane Contreras Work Phone: [facility] Work Phone: 09-15-2021 12:07-0500 Body weight 127.[address] Shane Contreras Work Phone: [facility] Work Phone: 09-15-2021 12:07-0500 Diastolic blood pressure 74 mm[Hg] Dr. Shane Contreras Work Phone: [facility] Work Phone: 09-15-2021 12:07-0500 Heart rate 90 /min Dr. Shane Contreras Work Phone: [facility] Work Phone: 09-15-2021 12:07-0500 Respiratory rate 16 /min Dr. Shane Contreras Work Phone: [facility] Work Phone: 09-15-2021 12:07-0500 Systolic blood pressure 124 mm[Hg] Dr. Shane Contreras Work Phone: [facility] Work Phone: 08-31-2021 12:31-0500 Diastolic blood pressure 102 mm[Hg] Dr. Shane Contreras Work Phone: [facility] Work Phone: 08-31-2021 12:31-0500 Heart rate 93 /min Dr. Shane Contreras Work Phone: [facility] Work Phone: 08-31-2021 12:31-0500 Respiratory rate 16 /min Dr. Shane Contreras Work Phone: [facility] Work Phone: 08-31-2021 12:31-0500 SaO2% (BldA) [Mass fraction] 94 % Dr. Shane Contreras Work Phone: [facility] Work Phone: 08-31-2021 12:31-0500 Systolic blood pressure 168 mm[Hg] Dr. Shane Contreras Work Phone: [facility] Work Phone: 08-31-2021 09:45-0500 Body mass index (BMI) [Ratio] 34.4 kg/m2 Dr. Shane Contreras Work Phone: [facility] Work Phone: 08-31-2021 09:45-0500 Body temperature 97.5 [degF] Dr. Shane Contreras Work Phone: [facility] Work Phone: 08-31-2021 09:45-0500 Body weight 131.[address] Shane Contreras Work Phone: [facility] Work Phone: NEGATED: Highlighted [id number] 12:41-0400 Body height 195.58 cm [facility] Work Phone: NEGATED: Highlighted [id number] 12:41-0400 Body height 196 cm [facility] Work Phone: NEGATED: Highlighted [id number] 12:41-0400 Body mass index (BMI) [Ratio] 31.54 kg/m2 [facility] Work Phone: NEGATED: Highlighted [id number] 12:41-0400 Body weight 120.2 kg [facility] Work Phone: NEGATED: Highlighted [id number] 12:41-0400 Body weight 120 kg [facility] Work Phone: NEGATED: Highlighted [id number] 12:46-0400 Body height 195.58 cm Sharee Chaidez RN [facility] Work Phone: NEGATED: Highlighted [id number] 12:46-0400 Body height 196 cm Sharee Chaidez RN [facility] Work Phone: NEGATED: Highlighted [id number] 12:46-0400 Body mass index (BMI) [Ratio] 32.73 kg/m2 Sharee Chaidez RN [facility] Work Phone: NEGATED: Highlighted [id number] 12:46-0400 Body weight 124.74 kg Sharee Chaidez RN [facility] Work Phone: NEGATED: Highlighted [id number] 12:46-0400 Body weight 125 kg Sharee Chaidez RN [facility] Work Phone: NEGATED: Highlighted [id number] 10:24-0400 Body height 195.58 cm Sharee Chaidez RN [facility] Work Phone: NEGATED: Highlighted [id number] 10:24-0400 Body height 196 cm Sharee Chaidez RN [facility] Work Phone: NEGATED: Highlighted [id number] 10:24-0400 Body mass index (BMI) [Ratio] 32.73 kg/m2 Sharee Chaidez RN [facility] Work Phone: NEGATED: Highlighted [id number] 10:24-0400 Body weight 124.74 kg Sharee Chaidez RN [facility] Work Phone: NEGATED: Highlighted [id number] 10:24-0400 Body weight 125 kg Sharee Chaidez RN [facility] Work Phone: NEGATED: Highlighted [id number] 15:19-0400 Body height 195.58 cm Alexus Duecker AT [facility] Work Phone: NEGATED: Highlighted [id number] 15:19-0400 Body height 196 cm Alexus Duecker AT [facility] Work Phone: NEGATED: Highlighted [id number] 15:19-0400 Body mass index (BMI) [Ratio] 32.73 kg/m2 Alexus Duecker AT [facility] Work Phone: NEGATED: Highlighted [id number] 15:19-0400 Body weight 124.74 kg Alexus Duecker AT [facility] Work Phone: NEGATED: Highlighted [id number] 15:19-0400 Body weight 125 kg Alexus Duecker AT [facility] Work Phone: Encounters Encounter Date Encounter Type Care Provider Facility Start: 02-22-2025 ambulatory Shane Contreras Facility:[facility] Start: 01-29-2025 ambulatory Shane Contreras Facility:[facility] Start: 01-29-2025 Non-patient / Non-visit Nadir Martines DO -[facility] Start: 01-29-2025 End: 01-29-2025 Admission to same day surgery center Nadir Martines DO -Endoscopy Work Phone: Start: 01-29-2025 End: 01-29-[address] Shane Contreras MD Work Phone: -Endoscopy Start: 11-27-2024 End: 11-27-2024 Patient encounter procedure Nadir Martines DO -[facility] Work Phone: Start: 11-27-2024 End: 11-27-[address] Shane Contreras MD Work Phone: [facility] Work Phone: Start: 11-26-2024 End: 11-26-[address] Shane Contreras MD Work Phone: [facility] Work Phone: Start: 11-26-2024 End: 11-26-[address] Shane Contreras MD -Laboratory [facility] Start: 11-26-2024 End: 11-26-2024 ambulatory Shane Contreras Facility:[facility] Start: 08-24-2024 End: 08-24-[address] Shane Contreras MD -Laboratory [facility] Start: 08-24-2024 End: 08-24-2024 ambulatory Shane Contreras Facility:[facility] Start: 06-25-2024 Encounter for genera l adult medical examination without abnormal findings Shane Contreras [facility] Start: 05-29-2024 End: 05-29-2024 ambulatory Shane Contreras Facility:[facility] Start: 05-11-2024 End: 05-11-2024 ambulatory All Stephens Facility:[facility] Start: 09-16-2023 Non-patient / Non-visit Dr. Shane Contreras Work Phone: [facility] Start: 09-16-2023 End: 09-16-2023 Admission to same day surgery center Dr. Shane Contreras Work Phone: [facility] Start: 09-16-2023 End: 09-16-[address] Shane Contreras Work Phone: [facility] Work Phone: Start: 09-13-2023 End: 09-13-[address] Shane Contreras Work Phone: [facility] Work Phone: Start: 09-10-2023 End: 09-10-[address] Shane Contreras Work Phone: [facility] Work Phone: Start: 09-09-2023 End: 09-09-2023 Emergency department patient visit Dr. Shane Contreras Work Phone: [facility]Emer[facility] Work Phone: Start: 07-01-2023 End: 07-01-[address] Shane Contreras Work Phone: [facility] Work Phone: Start: 06-21-2023 Non-patient / Non-visit Dr. Shane Contreras Work Phone: [facility] Start: 06-21-2023 End: 06-21-2023 Admission to same day surgery center Dr. Shane Contreras Work Phone: [facility]End[facility] Work Phone: Start: 06-21-2023 End: 06-21-[address] Shane Contreras Work Phone: [facility] Work Phone: Start: 06-20-2023 End: 06-20-[address] Shane Contreras Work Phone: [facility] Work Phone: Start: 05-24-2023 End: 05-24-[address] Shane Contreras Work Phone: [facility] Work Phone: Start: 05-24-2023 End: 05-24-[address] Shane Contreras Work Phone: [facility]Laboratory Work Phone: Start: 05-11-2023 Non-patient / Non-visit Dr. Shane Contreras Work Phone: [facility] Work Phone: Start: 05-10-2023 Non-patient / Non-visit Dr. Shane Contreras Work Phone: [facility] Start: 05-10-2023 End: 05-11-2023 Evaluation and management of inpatient [facility] Work Phone: Start: 05-10-2023 Non-patient / Non-visit Dr. Shane Contreras Work Phone: [facility] Work Phone: Start: 05-09-2023 Non-patient / Non-visit Dr. Shane Contreras Work Phone: [facility] Work Phone: Start: 05-09-2023 Evaluation and management of inpatient Dr. Shane Contreras [facility] Work Phone: Start: 05-09-[address] Shane Contreras Work Phone: [facility] Work Phone: Start: 04-20-2023 End: 04-20-[address] Shane Contreras Work Phone: [facility] Work Phone: Start: 02-28-2023 ambulatory DANE PRUITT Facility:[facility] Start: 02-28-2023 End: 02-28-2023 Office consultation new/estab patient 80 min Dane Pruitt MD Work Phone: [employer] [employer] [facility] Comment on above: Atrial septal aneury sm (Primary Dx); Patent foramen ovale; Lightheadedness; Neuropathy Start: 12-27-2022 Non-patient / Non-visit Dr. Shane Contreras Work Phone: [facility] Start: 12-27-2022 End: 12-27-[address] Shane Contreras Work Phone: [facility] Work Phone: Start: 12-27-2022 End: 12-27-[address] [facility] Start: 12-26-2022 End: 12-26-[address] Shane Contreras Work Phone: [facility] Work Phone: Start: 12-26-2022 End: 12-26-[address] Shane Contreras Work Phone: [facility] Start: 12-18-2022 ambulatory DANE PRUITT Facility:[facility] Start: 12-17-2022 ambulatory DANE CROFTUDOULAS Facility:[facility] Start: 12-17-2022 End: 12-17-[address] Shane Contreras Work Phone: [facility] Start: 12-12-2022 Non-patient / Non-visit Dr. Shane Contreras Work Phone: [facility] Start: 12-12-[address] Shane Contreras Work Phone: [facility] Start: 12-09-2022 End: 12-09-2022 Emergency department patient visit [facility] Start: 11-19-2022 End: 11-19-2022 ambulatory [facility] Work Phone: Start: 11-19-2022 End: 11-19-2022 Patient encounter procedure [facility] Start: 11-09-2022 End: 11-09-2022 ambulatory [facility] Work Phone: Start: 11-09-2022 End: 11-09-2022 Patient encounter procedure [facility] Start: 09-24-2022 End: 09-24-[address] Shane Contreras Work Phone: [facility] Work Phone: Start: 09-24-2022 End: 09-24-[address] [facility] Start: 06-27-2022 End: 06-27-[address] Shane Contreras Work Phone: [facility] Work Phone: Start: 06-27-2022 End: 06-27-[address] Shane Contreras Work Phone: [facility] Start: 06-13-2022 End: 06-13-[address] Shane Contreras Work Phone: [facility] Start: 05-25-2022 End: 05-25-2022 ambulatory [facility] Work Phone: Start: 05-25-2022 End: 05-25-2022 Patient encounter procedure [facility], [facility] Start: 05-09-2022 End: 05-09-2022 ambulatory [facility] Work Phone: Start: 05-09-2022 End: 05-09-2022 Patient encounter procedure [facility] Start: 11-06-2021 End: 11-06-[address] Shane Contreras Work Phone: [facility] Start: 10-31-2021 End: 10-31-[address] Shane Contreras Work Phone: [facility] Start: 10-24-2021 Non-patient / Non-visit Dr. Shane Contreras Work Phone: [facility] Start: 10-24-2021 End: 10-24-[address] [facility] Start: 10-02-2021 End: 10-02-2021 Subsequent hospital visit by physician Sebastian Abbott MD Work Phone: [facility] Start: 09-22-[address] Shane weller [facility] Start: 09-15-2021 End: 09-15-[address] Shane Contreras Work Phone: [facility] Start: 09-06-2021 End: 09-06-[address] Shane Contreras Work Phone: [facility] Start: 08-31-2021 End: 08-31-2021 Emergency department patient visit Dr. [facility] Cont[facility] Start: 09-18-2018 Patient encounter procedure MARILOU FRANK Facility:[facility] Procedures Date Procedure Procedure Detail Performing Clinician Start: 01-29-[address] Shane weller MD Work Phone: Start: 08-24-2024 Measurement of renal function Dr. Shane Contreras MD Work Phone: Comment on above: GFR Calc Start: 09-16-2023 Repair of left ingui nal hernia using surgical mesh Dr. Shane Contreras Work Phone: Start: 09-09-2023 Computed tomography of abdomen and pelvis with intravenous contrast Dr. Shane Contreras Work Phone: Start: 06-21-[address] Shane weller Work Phone: Start: 05-09-2023 Computed tomography of abdomen and pelvis with intravenous contrast Dr. Shane Contreras Work Phone: Start: 05-09-[address] e detection Dr. Shane Contreras Work Phone: Start: 05-09-2023 Giardia Antigen (TU) D junior Contreras Work Phone: Start: 05-09-2023 Ova OR parasites identification Dr. Shane Contreras Work Phone: Start: 12-12-2022 Radionuclide imaging of perfusion of myocardium under exercise stress Dr. Shane Contreras Work Phone: Start: 12-09-2022 Plain chest X-ray Start: 06-27-2022 Diagnostic radiograp hy of finger Dr. Shane Contreras Work Phone: Start: 05-25-2022 Plain chest X-ray Start: 10-30-2021 End: 10-30-2021 BP scrn no [...] dm Sebastian Abbott MD Work Phone: Start: 10-02-2021 End: 10-02-2021 Docrev cur meds by fidencio Abobtt MD Work Phone: Start: 10-02-2021 End: 10-02-2021 [...] Calc BMI abv up derrick f/u Colby rodriguez MD Work Phone: Start: 09-29-2021 End: 09-29-2021 Current tobacco non-user cad cap copd pv dm Colby Arizmendi MD Work Phone: Start: 09-29-2021 End: 09-29-2021 Docrev cur meds by fidencio Arizmendi MD Work Phone: Start: 09-29-2021 End: 09-29-2021 Pain neg no plan Colby Arizmendi MD Work Phone: Start: 09-29-2021 End: 09-29-2021 Patient encounter procedure Colby Arizmendi MD Work Phone: Start: 08-31-2021 Computed tomography of abdomen and pelvis with intravenous contrast Dr. Shane Contreras Work Phone: NEGATED: Highlighted rowStart: 10-30-2021 End: 10-30-2021 Documentation of current medications Kyleigh Villegas NEGATED: Highlighted rowStart: 10-09-2021 End: 10-09-2021 Documentation of current medications Sharee Chaidez RN NEGATED: Highlighted rowStart: 10-02-2021 End: 10-02-2021 Documentation of current medications Sharee Chaidez RN NEGATED: Highlighted rowStart: 09-29-2021 End: 09-29-2021 Documentation of current medications Alexus Duecker AT Plan of Treatment Date Care Activity Detail Author Start: 01-29-2025 Patient discharge [facility] Start: 11-26-2024 Urine microalbumin/creatinine ratio measurement [facility] Start: 07-01-2024 Tetanus vaccination TETANUS [facility] Start: 09-16-2023 Patient discharge [facility] Start: 09-09-2023 [facility] Start: 06-21-2023 Colonoscopy flx dx w /collj spec when pfrmd DIAGNOSTIC COLONOSCOPY [facility] Start: 06-21-2023 Patient discharge [facility] Start: 05-11-2023 Patient discharge [facility] Start: 05-10-2023 Admission procedure [facility] Start: 05-10-2023 Referral to gastroenterology service [facility] Start: 05-09-2023 Application of intermittent pneumatic compression device [facility] Start: 05-09-2023 Following clinical p athway protocol [facility] Start: 05-09-2023 Assessment of risk o f venous thromboembolism [facility] Start: 05-09-2023 Care regimes management [facility] Start: 05-09-2023 Insertion of cathete r into peripheral vein [facility] Start: 05-09-2023 Notification of physician [facility] Start: 05-09-2023 Oxygen therapy [facility] Start: 05-09-2023 Providing care accor ding to standard [facility] Start: 05-09-2023 Provision of activit y privileges [facility] Start: 05-09-2023 [facility] Start: 05-09-2023 Verification routine [facility] Start: 05-09-2023 Hospital admission, emergency, from emergency room, medical nature [facility] Start: 05-09-2023 Admission procedure [facility] Start: 05-09-2023 Enteric precautions [facility] Start: 05-09-2023 Leukocyte reduced re d blood cells [facility] Start: 05-09-2023 [facility] Start: 05-09-2023 Giardia Antigen (TU) Giardia Antige n (TU) [facility] Start: 05-09-2023 Ova and Parasites Ova and Parasites [facility] Start: 05-09-2023 Patient referral to dietitian [facility] Start: 03-15-2023 Influenza vaccination INFLUENZA VACC INE (#1) [facility] Start: 12-17-2022 Patient referral [facility] Work Phone: Start: 09-09-2022 COVID-19 VACCINE (3 - Pfizer series) COVID-19 VACCINE (3 - Pfizer series) [facility] Start: 10-30-2021 End: 10-30-2021 Patient encounter procedure Appointment [facility] Work Phone: Start: 10-09-2021 End: 10-09-2021 Patient encounter procedure Appointment [facility] Work Phone: Start: 10-02-2021 End: 10-02-2021 Patient encounter procedure Appointment [facility] Work Phone: Start: 09-29-2021 End: 09-29-2021 Patient encounter procedure Appointment [facility] Work Phone: Start: 09-29-2021 End: 09-29-2021 Radex hand minimum 3 views XR HAND 3+ VWS-RT [facility] Work Phone: Start: 2021 Abdominal aortic ane urysm screening ABDOMINAL AORTIC ANEURYSM HIGH RISK SCREEN [facility] Start: 2021 Pneumococcal vaccination PNEUM OCOCCAL VACCINE SERIES (1 - PCV) [facility] Start: 03-15-2021 Influenza vaccination Flu vaccine (# 1) [facility] Start: 2006 Prostate specific an tigen measurement PROSTATE CANCER SCREENING DISCUSSION [facility] Start: 2006 Zoster vaccine hzv l rachel for subcutaneous use ZOSTER (SHINGLES) VACCINE (1 of 2) [facility] Start: 2001 Screening for malign ant neoplasm of colon COLORECTAL CANCER SCREENING DISCUSSION [facility] Start: 1996 Lipid panel LIPID SCREENING [facility] Start: 1961 COVID-19 Vaccine (1) COVID-19 Vaccin e (1) [facility] Start: 1956 Hepatitis C screening HEPATITI S C VIRUS SCREENING [facility] Bilirubin measuremen t, urine [facility] Colonoscopy [facility] Creatinine [Mass/vol ume] in Urine collected for unspecified duration [facility] End: 10-02-2021 Culture, Aerobic Bacteria with Gram Stain Culture, Aerobic Bacteria with Gram Stain Microbiology Routine Once for 1 Occurrences starting 10/02/2021 until 10/02/2021 [facility] Work Phone: Comment on above: Once for 1 Occurrenc es starting 10/02/2021 until 10/02/2021 Culture, Aerobic Calixto teria with Gram Stain Culture, Aerobic Bacteria with Gram Stain Microbiology Routine 10/02/2021 12:30 PM EDT [facility] Work Phone: End: 10-02-2021 Culture, Anaerobic Culture, Anaerobic Microbiology Routine Once for 1 Occurrences starting 10/02/2021 until 10/02/2021 [facility] Work Phone: Comment on above: Once for 1 Occurrenc es starting 10/02/2021 until 10/02/2021 Culture, Anaerobic Culture, Anae robic Microbiology Routine 10/02/2021 12:30 PM EDT [facility] Work Phone: Hemoglobin [Presence ] in Urine [facility] Measurement of keton es in urine using dipstick [facility] Microalbumin [Mass/v olume] in Urine [facility] Microscopic urinalysis [facility] Ova and parasites identified in Unspecified specimen by Light microscopy [facility] Patient Education [facility] Work Phone: Patient referral [facility] Work Phone: pH of Urine [facility] Specific gravity of Urine [facility] Urinalysis, blood, qualitative [facility] Urine dipstick for glucose [facility] Urine dipstick for leukocyte esterase [facility] Urine dipstick for nitrite [facility] Urine dipstick for protein [facility] Urine examination [facility] Urine microscopy: epithelial cells [facility] Urine Microscopy: wh ite cells [facility] Urobilinogen [Presen ce] in Urine [facility] Immunizations Immunization Date Immunization Notes Care Provider Onel garcia 05-04-2024 influenza, seasonal, injectable, preservative free Dr. Shane Contreras MD Work Phone: [facility] 05-07-2022 influenza, injectabl e, quadrivalent, preservative free Dr. Shane Contreras Work Phone: [facility] 05-07-2022 influenza, seasonal, injectable [facility] 05-07-2022 influenza virus vaccine, unspecified formulation Dane Pruitt MD Work Phone: [facility] 06-28-2021 Covid (Moderna) Dr. Shane malagon Work Phone: [facility] 05-01-2021 influenza, injectabl e, quadrivalent, preservative free Dr. Shane Contreras Work Phone: [facility] 05-01-2021 influenza, seasonal, injectable Dr. Shane Contreras Work Phone: [facility] 08-09-2020 Covid (Moderna) Dr. Shane malagon Work Phone: [facility] 07-12-2020 Covid (Moderna) Dr. Shane malagon Work Phone: [facility] 04-20-2020 influenza, injectabl e, quadrivalent, preservative free Dr. Shane Contreras Work Phone: [facility] 04-20-2020 influenza, seasonal, injectable Dr. Shane Contreras Work Phone: [facility] 05-27-2019 influenza, injectabl e, quadrivalent, preservative free Dr. Shane Contreras Work Phone: [facility] 05-27-2019 influenza, seasonal, injectable Dr. Shane Contreras Work Phone: [facility] 05-14-2018 influenza, injectabl e, quadrivalent, preservative free Dr. Shane Contreras Work Phone: [facility] 05-14-2018 influenza, seasonal, injectable Dr. Shane Contreras Work Phone: [facility] 05-22-2017 influenza, injectabl e, quadrivalent, preservative free Dr. Shane Contreras Work Phone: [facility] 05-22-2017 influenza, seasonal, injectable Dr. Shane Contreras Work Phone: [facility] 05-09-2016 influenza, injectabl e, quadrivalent, preservative free Dr. Shane Contreras Work Phone: [facility] 05-09-2016 influenza, seasonal, injectable Dr. Shane Contreras Work Phone: [facility] 05-04-2015 influenza, injectabl e, quadrivalent, preservative free Dr. Shane Contreras Work Phone: [facility] 05-04-2015 influenza, seasonal, injectable Dr. Shane Contreras Work Phone: [facility] 05-13-2014 influenza, injectabl e, quadrivalent, preservative free Dr. Shane Contreras Work Phone: [facility] 05-13-2014 influenza, seasonal, injectable Dr. Shane Contreras Work Phone: [facility] 07-23-[address] Shane Contreras Work Phone: [facility] Payers Date Payer Category Payer Self-pay [id number] 2022 Medicare MEDICARE MEDICAR E A AND B [id number] 2022-Present [address] [place] [address] [id number] 2021 Medicare [id number] 2021 Unknown [id number] 2021 Unknown GENERIC PAYOR ME DICARE SUPPLEMENT [id number] 2021-Present [phone] [address] [place] [address] [id number] 2016 Private Health Insurance [id number] 1955 Unknown [id number] 1955 Unknown [id number]. 594 1955 Unknown [id number]. 594 1955 Unknown [id number]. 594 1955 Unknown [id number]. 594 Unknown [id number]. 462 Unknown [id number]. 462 Unknown [id number]. 462 Unknown [id number]. 462 Unknown [id number] [id number]. 462 Unknown [id number]. 462 Unknown [id number]. 462 Unknown [id number]. 462 Social History Date Type Detail Facility Start: 10-31-2021 End: 09-13-2023 Assertion Unknown if ever smoked [facility] Work Phone: Start: 1955 Sex Assigned At Not on file [facility] Work Phone: Start: 12-29-2017 None [facility] Start: 12-29-2017 Spouse/ Signif icant Other [facility] Start: 1955 Sex Assigned At Male [facility] Start: 02-28-2023 End: 01-27-2025 Tobacco smoking status NHIS Never smoked tobacco [facility] Start: 02-28-2023 Tobacco use and exposure Smokeless tobacco non-user [facility] Start: 02-28-2023 Alcohol intake Ex-drinker (finding) [facility] Start: 02-28-2023 History of Social function [facility] Start: 02-28-2023 Tobacco use panel [facility] NEGATED: Highlighted rowStart: 09-29-2021 End: 09-29-2021 Alcohol use Alcohol use [facility] Work Phone: NEGATED: Highlighted rowStart: 09-29-2021 End: 09-29-2021 Details of drug misuse behavior Details of drug misuse behavior [facility] Work Phone: NEGATED: Highlighted rowStart: 09-29-2021 End: 09-29-2021 How many days of moderate to strenuous exercise, like a brisk walk, did you do in the last 7 days? How many days of moderate to strenuous exercise, like a brisk walk, did you do in the last 7 days? [facility] Work Phone: NEGATED: Highlighted rowStart: 09-29-2021 End: 09-29-2021 Assertion Never smoker [facility] Work Phone: Medical Equipment Procedure Code Equipment Code Equipment Origin al Text Equipment Identifier Dates Repair, hernia, inguinal, with mesh insertion ([id number]) Extra-gynaecologic al surgical mesh, synthetic polymer, non-bioabsorbable ()[id number] FDA Start: 09-16-2023 Repair, hernia, inguinal, with mesh insertion Extra-gynaecologic al surgical mesh, synthetic polymer, non-bioabsorbable ()[id number] FDA Start: 09-16-2023 Repair, hernia, inguinal, with mesh insertion Ligation clip, metallic [id number] FDA Start: 09-16-2023 Goals Date Patient Goal Desired Activity /State Functional Status Date Assessment Result Facility 05-11-2023 Functional status Ambulates [facility] Work Phone: Mental Status Date Assessment Result Facility 01-29-2025 Cognitive function Level Of Consciousness Drowsy [facility] Work Phone: 09-16-2023 Cognitive function Touch/Shaking [facility] Work Phone: 09-16-2023 Cognitive function Patient Orien tation Person;Place;Time [facility] Work Phone: 06-21-2023 Cognitive function Voice/Name [facility] Work Phone: 05-11-2023 Cognitive function Voice/Name [facility] Work Phone: Clinical Notes 09-29-2021 to 01-29-2025 Note Date & Type Note Facility 01-29-2025 Consult note Note Date/Time January 29, 2025 9:51am [facility] Medical Records Department [address] [place] [address] Pre-Anesthesia Evaluation 01/29/25926 MR#: [id number] Acct: [id number] Name: TANI WILLIAMSON Rep #:[id number] 12 : 1955 69 From: Luiz Dawson MD PCP: Dr. Shane Contreras MD Status:REG S DC Y Race: C Location: [place] [address]- ASA Classification* ASA Classification ASA Classification: 2 Assessment & Plan Anesthesia* Anesthesia Assessment Anesthesia Assessment: Discussed sedation and/or anesthesia options, risks, benefits, and alternatives with patient/parents/legal guardian/POA. Questions invited. The patient/parents/legal guardian/POA seems to understand and agrees to proceedwith anesthesia plan. Reviewed the physical assessment, medical history, allergy history and patient home medications list prior to surgery/procedure/anesthetic and documented any changes. Performed airway and anesthesia risk assessments. Anesthesia Type Anesthesia Type: MAC History Source History Obtained from:: Patient and Chart Anesthesia Focused Assessment* Temperature: 98.3 F Pulse Rate: 86 Blood Pressure: 140/75 Respiratory Rate: 18 Pulse Ox: 93 Oxygen Delivery Method: Room Air Airway Assessment Mouth opens: >3 cm Mallampati Score: IV Teeth Condition: Caps/Crowns (Tooth #8 is capped.) and Missing (Missing right upper molar.) Neck Range of motion (ROM): Limited ROM (Somewhat Decreased) Labs Anesthesia Preop lab: CBC WBC 4.7 K/mm3 (4.4-11.0) 11/26/24 09:45 11/26/24 RBC 4.65 M/mm3 (4.6-6.2) 11/26/24 09:45 11/26/24 Hgb 14.0 g/dL (13.0-16.5) 11/26/24 09:45 11/26/24 Hct 41.6 % (40-54) 11/26/24 09:45 11/26/24 Plt Count 235 K/mm3 (150-450) 11/26/24 09:45 11/26/24 CHEMISTRY Potassium 3.8 mmol/L (3.3-5.1) 11/26/24 09:45 11/26/24 Sodium 137 mmol/L (133-145) 11/26/24 09:45 11/26/24 Magnesium 1.8 mg/dL (1.6-2.6) 12/26/22 10:24 12/26/22 BUN 13 mg/dL (4-19) 11/26/24 09:45 11/26/24 Creatinine 0.90 mg/dL (0.70-1.20) 11/26/24 09:45 11/26/24 Glucose 119 mg/dL (70-99) H 11/26/24 09:45 11/26/24 POC Glucose 118 mg/dL (74-106) H 09/16/23 17:48 09/16/23 TSH 2.140 uIU/mL (0.300-4.200) 11/26/24 09:45 05/12/06 COAG PT 13.3 SECONDS (11.7-14.9) 12/29/17 13:24 Pre-Assessment Diagnosis/Proposed Procedure Planned Operative Procedure(s): CSCOPE Anesthesia History 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 When Was Last Pacemaker Check QUESTION #4 FULL TEXT: You/Your Family Experience fever (hyperthermia) with Anesthesia Last Oral Intake Last Oral intake: Last Oral Intake NPO since 05:30 01/29/25 08:46 Meds taken in AM with sips of No 01/29/25 08:46 water? 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 Female No 01/27/25 12:10 HX of Motion Sickness No 01/27/25 12:10 HX of N/V After Surgery No 01/27/25 12:10 Non-Smoker Yes 01/27/25 12:10 Duration of Surgery greater No 01/27/25 12:10 than 60 minutes Number of Risk Factors 1 01/27/25 12:10 PONV Score Low Risk 01/27/25 12:10 Height & Weight Height & Weight: Anesthesia: Height & Weight Height 6 ft 5 in 01/29/25 08:46 Weight: 130.5 kg 01/29/25 08:46 Body Mass Index (BMI) 34.1 01/29/25 08:46 Respiratory Assessment Respiratory Assessment - 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 Has anyone observed you stop breathing during sleep? STOP Results Positive 01/27/25 12:10 QUESTION #5 FULL TEXT : Do you snore loudly (louder than talking or can be heard through closed doors)? 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 Specify any problems Hx of Preganancy in last 3 N/A 01/27/25 12:10 Months Nurse Filling Out Transfusion DSCHRIBER 01/27/25 12:10 & Questions: Date: 01/27/25 01/27/25 12:10 Time: 12:11 01/27/25 12:10 Patient unable to answer at this time (ie. 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 No 01/27/25 12:10 Gestational Age (in weeks): EDC: Hx Hx Para Hx Section SAB No 01/27/25 12:10 Active Medications Active Medications: Current Medications Generic Name Dose Route Start Last Admin Trade Name Freq PRN Reason Stop Dose Admin Lactated Ringer's 1,000 mls @ 15 mls/hr 01/29/25 08:45 01/29/25 08:56 IV 15 mls/hr .Q48H BONIFACIO Administration PFSH Medical History Indwelling urethral catheter present Diabetes Wears glasses Wears contact lenses Cancer Anxiety Back pain Dietary restriction CPAP (continuous positive airway pressure) dependence Non-smoker History of echocardiogram History of stress test Cardiology follow-up encounter PFO (patent foramen ovale) Diverticulitis PFO with atrial septal aneurysm History of skin cancer Hypothyroidism Essential hypertension Asthma Exposure to COVID-19 virus Home Medications ?Medication ?Instructions ?Recorded ?Last Taken ?Type montelukast 10 mg tablet 10 mg PO QHS 03/21/21 History cholecalciferol (vitamin D3) 50 2,000 unit PO DAILY 01/28/25 History mcg (2,000 unit) tablet (Vitamin D3) metformin 500 mg tablet 500 mg PO QHS 09/15/2101/28 History tamsulosin 0.4 mg capsule 0.4 mg PO QHS 06/13/2201/28 History multivitamin 1 tab PO DAILY SUPPLEMENT 01/28/25 History zinc acetate 25 mg (zinc) capsule 30 mg PO DAILY SUPPL EMENT 12/09/22 01/28/25 History guaifenesin 600 mg tablet, 600 mg PO BID 05/09/2301/12 History extended release 12 hr fluticasone 232mcg-salmeterol 1 inh inhalation BID ast hma 05/10/23 01/28/25 History 14mcg/actuation breath act,powder sensor levothyroxine 75 mcg capsule 75 mcg PO DAILY 06/20/23 01/28/25 History losartan 100 mg tablet 100 mg PO QHS 06/20/2301/28 History aspirin 81 mg capsule 81 mg PO DAILY 09/11/2301/12 History atorvastatin 10 mg tablet (Lipitor) 10 mg PO QDAY 11/1201/28/25 History albuterol sulfate 90 mcg/actuation 2 puff inhalation Q 4H PRN PRN 01/27/25 01/28/25 History aerosol inhaler wheezing Allergy/AdvReac Type Severity Reaction Status Date / Time amoxicillin trihydrate (From Allergy Rash Verified 01/29/25 08:43 Augmentin) potassium clavulanate (From Allergy Rash Verified 01/29/25 08:43 Augmentin) Family History Mother Breast cancer Father Heart disease Cancer Kidney Surgical History S/P left inguinal hernia repair History of colonoscopy (~06/2023) History of esophagogastroduodenoscopy (EGD) History of hemorrhoidectomy History of orchiectomy, unilateral History of drainage of abscess H/O hernia repair Social History Smoking Status: Never smoker alcohol intake: never substance use type: does not use caffeine: No (Over the last 3 weeks) Review of Systems (Anesthesia) ROS Narrative System reviewed and no additional complaints, except as documented. 01/29/25950 <Electronically signed by Luiz bell MD> Date _ Luiz Dawson MD Cosigner Signature: Date CC: ~ Signed [facility] Work Phone: [phone] [facility] Medical Records Department [address] [place] [address] Anesthesia Postop Eval I 01/29/25 1045 MR#: [id number] Acct: [id number] Name: TERITANI AVILES Rep #[id number] : 1955 69 From: Raffi Zhong PCP: Dr. Shane Contreras MD Status:REG S DC Y Race: C Location: [place] [address] Anesthesia: Postop Eval I Current Vital Signs Temperature: 97 F Pulse Rate: 74 Blood Pressure: 119/52 Respiratory Rate: 16 Pulse Ox: 95 Oxygen Delivery Method: Room Air Assessment Airway patent: Yes Spontaneous unlabored respirations: Yes Mental status: Awake and Calm nausea: No Vomiting: No Anesthesia Complication: No Fluid Hydration Crystalloid volume administer (ml): 500 Total IV fluid infused: 500 Progress Note Anesthesia document: Postop Eval 1 completed: Yes 01/29/25 1046 > Date _ Raffi Bustos Signature: Date CC: ~ Signed [facility]07-18-[address] [facility] Medical Records Department [address] [place] [address] Colonoscopy Report MR#: [id number] Acct: [id number] Name: TANI WILLIAMSON Rep #:[id number] : 1955 69 From: Nadir Martines DO PCP: Dr. Shane Contreras MD Status:REG S DC Patient Name: Tani Williamson Procedure Date: 01/29/2025 10:12 AM Date of : 1955 Age: 69 Procedure: Colonoscopy Indications: Screening for colorectal malignant neoplasm Providers: Nadir Martines DO Medicines: Monitored Anesthesia Care Patient Profile: This is a 69 year old male. Refer to note in patient chart for documentation of history and physical. Last Colonoscopy: several years ago. Complications: No immediate complications. Procedure: Pre-Anesthesia Assessment: - Prior to the procedure, a History and Physical was performed, and patient medications and allergies were reviewed. The patient is competent. The risks and benefits of the procedure and the sedation options and risks were discussed with the patient. All questions were answered and informed consent was obtained. Patient identification and proposed procedure were verified by the physician in the pre-procedure area. Mental Status Examination: alert and oriented. Airway Examination: normal oropharyngeal airway and neck mobility. Respiratory Examination: clear to auscultation. CV Examination: normal. Prophylactic Antibiotics: The patient does not require prophylactic antibiotics. Prior Anticoagulants: The patient has taken no anticoagulant or antiplatelet agents except for NSAID medication. ASA Grade Assessment: II - A patient with mild systemic disease. After reviewing the risks and benefits, the patient was deemed in satisfactory condition to undergo the procedure. The anesthesia plan was to use general anesthesia. Immediately prior to administration of medications, the patient was re-assessed for adequacy to receive sedatives. The heart rate, respiratory rate, oxygen saturations, blood pressure, adequacy of pulmonary ventilation, and response to care were monitored throughout the procedure. The physical status of the patient was re-assessed after the procedure. After I obtained informed consent, the scope was passed under direct vision. Throughout the procedure, the patient's blood pressure, pulse, and oxygen saturations were monitored continuously. The Colonoscope was introduced through the anus and advanced to the cecum, identified by appendiceal orifice and ileocecal valve. The colonoscopy was performed without difficulty. The patient tolerated the procedure well. The quality of the bowel preparation was adequate. The ileocecal valve, appendiceal orifice, and rectum were photographed. Scope In: 10:21:32 AM Scope Withdrawal Time 0 hours 9 minutes 15 seconds Scope Out: 10:37:57 AM Total Procedure Duration Time 0 hours 16 minutes 25 seconds Findings: The perianal and digital rectal examinations were normal. Multiple small and large-mouthed diverticula were found in the entire colon. A 4 mm polyp was found in the ascending colon. The polyp was sessile. The polyp was removed with a jumbo cold forceps. Resection and retrieval were complete. Verification of patient identification for the specimen was done. Estimated blood loss was minimal. Non-bleeding internal hemorrhoids were found during retroflexion. The hemorrhoids were Grade I (internal hemorrhoids that do not prolapse). Impression: - Diverticulosis in the entire examined colon. - One 4 mm polyp in the ascending colon, removed with a jumbo cold forceps. Resected and retrieved. - Non-bleeding internal hemorrhoids. Recommendation: - Repeat colonoscopy in 5 years for surveillance. - Return to GI office in 1 week. - Continue present medications. Procedure Code(s): --- Professional --- 82848, Colonoscopy, flexible; with biopsy, single or multiple CPT copyright 2021 [employer]. All rights reserved. The codes documented in this report are preliminary and upon supervisor tree trimming review may be revised to meet current compliance requirements. Nadir Martines DO 01/29/2025 10:42:20 AM This report has been signed electronically. Number of Addenda: 0 Note Initiated On: 01/29/2025 10:12 AM 01/29/25 1042 Date _ Nadir Martines DO Cosigner Signature: Date (if indicated) CC: Dr. Shane Contreras MD; Nadir Martines DO ~ Date Dictated: 01/29/25 1012 Date Transcribed: Copy Chaser: RF Signed [facility]07-18-[address] [facility] Medical Records Department [address] [place] [address] Operative Report - CC Letter MR#: [id number] Acct: [id number] Name: TANI WILLIAMSON Rep #:[id number] : 1955 69 From: Nadir Martines DO PCP: Dr. Shane Contreras MD Status:REG S DC 01/29/2025 Shane Contreras MD [address] [place] [address] Re : Colonoscopy procedure for Tani Williamson Dear Dr. Contreras This procedure was performed on Wednesday, January 29, 2025. My impressions and recommendations are as follows: Impressions : - Diverticulosis in the entire examined colon. - One 4 mm polyp in the ascending colon, removed with a jumbo cold forceps. Resected and retrieved. - Non-bleeding internal hemorrhoids. Recommendations : - Repeat colonoscopy in 5 years for surveillance. - Return to GI office in 1 week. - Continue present medications. My findings are described in the full procedure note, which is enclosed. If I can be of further assistance, please feel free to contact me at . Sincerely, Nadir Martines DO 01/29/2025 10:42:20 AM This report has been signed electronically. 01/29/25 1042 Date _ Nadir Martines DO Cosigner Signature: Date (if indicated) CC: Dr. Shane Contreras MD; Nadri Martines DO ~ Date Dictated: 01/29/25 1012 Date Transcribed: Copy Chaser: RF Signed [facility]07-18-2025 History and physical note [facility] Medical Records Department [address] [place] [id number] History & Physical Exam 01/29/25 1007 MR#: [id number] Acct: [id number] Name: TANI WILLIAMSON Rep #:[id number] : 1955 69 From: Nadir Martines DO PCP: Dr. Shane Contreras MD Status:REG S DC Location: [place] [address] HPI - General General Date of Admission: 01/29/25 Date of Service: 01/29/25 Chief Complaint: Diverticulitis HPI Narrative TANI WILLIAMSON, is a 69 M who presents with a chief Complaint: Diverticulitis Pt reports hx diverticulitis. Had an episode that started last weekend with LLQabd pain. Treated with Cipro, Flagyl and a clear liquid diet for 4 days. Sx haveimproved. No longer having pain but feels lousy. Has moved to a soft diet. Pt states last episode before this was a year and a half ago. Last colonoscopy was 06/[address] Gerber. Has follow up questions. [facility] Medical History Indwelling urethral catheter present Diabetes Wears glasses Wears contact lenses Cancer Anxiety Back pain Dietary restriction CPAP (continuous positive airway pressure) dependence Non-smoker History of echocardiogram History of stress test Cardiology follow-up encounter PFO (patent foramen ovale) Diverticulitis PFO with atrial septal aneurysm History of skin cancer Hypothyroidism Essential hypertension Asthma Exposure to COVID-19 virus Home Medications ?Medication ?Instructions ?Recorded ?Last Taken ?Type montelukast 10 mg tablet 10 mg PO QHS 03/21/21 History cholecalciferol (vitamin D3) 50 2,000 unit PO DAILY 01/28/25 History mcg (2,000 unit) tablet (Vitamin D3) metformin 500 mg tablet 500 mg PO QHS 09/15/2101/28 History tamsulosin 0.4 mg capsule 0.4 mg PO QHS 06/13/2201/28 History multivitamin 1 tab PO DAILY SUPPLEMENT 01/28/25 History zinc acetate 25 mg (zinc) capsule 30 mg PO DAILY SUPPL EMENT 12/09/22 01/28/25 History guaifenesin 600 mg tablet, 600 mg PO BID 05/09/2301/12 History extended release 12 hr fluticasone 232mcg-salmeterol 1 inh inhalation BID ast hma 05/10/23 01/28/25 History 14mcg/actuation breath act,powder sensor levothyroxine 75 mcg capsule 75 mcg PO DAILY 06/20/23 01/28/25 History losartan 100 mg tablet 100 mg PO QHS 06/20/2301/28 History aspirin 81 mg capsule 81 mg PO DAILY 09/11/2301/12 History atorvastatin 10 mg tablet (Lipitor) 10 mg PO QDAY 11/1201/28/25 History albuterol sulfate 90 mcg/actuation 2 puff inhalation Q 4H PRN PRN 01/27/25 01/28/25 History aerosol inhaler wheezing Allergy/AdvReac Type Severity Reaction Status Date / Time amoxicillin trihydrate (From Allergy Rash Verified 01/29/25 08:43 Augmentin) potassium clavulanate (From Allergy Rash Verified 01/29/25 08:43 Augmentin) Family History Mother Breast cancer Father Heart disease Cancer Kidney Surgical History S/P left inguinal hernia repair History of colonoscopy (~06/2023) History of esophagogastroduodenoscopy (EGD) History of hemorrhoidectomy History of orchiectomy, unilateral History of drainage of abscess H/O hernia repair Social History Smoking Status: Never smoker alcohol intake: never substance use type: does not use caffeine: No (Over the last 3 weeks) ROS Constitutional Constitutional: Denies fatigue, fever(s), poor appetite, weight gain or weight loss Gastrointestinal Gastrointestinal: Denies belching, bloating, change in bowel habits, change in stool character, chewing difficulty, coffee ground emesis, constipation, cramping, diarrhea, dyspepsia, dysphagia, earlysatiety, excessive flatus, fecalincontinence, heartburn, hematemesis, hematochezia, hemorrhoids, loose stools, melena, nausea, odynophagia, rectal bleeding, tenesmus, vomiting or weight changes Vital Signs Vital Signs Vital Signs: 01/29/25 08:46 01/29/25 08:46 01/29/25 09:51 Temperature 98.3 F 98.3 F Temperature Source Temporal Pulse Rate 86 86 Respiratory Rate 18 18 Respiratory Pattern Normal Blood Pressure 140/75 H 140/75 H Blood Pressure Mean 96 Blood Pressure Source Monitor Blood Pressure Position Semi-Fowlers Blood Pressure Location Right Arm Pulse Ox 93 93 Oxygen Delivery Method Room Air Room Air Weight Weight: 287 lb 11.252 oz Body Mass Index (BMI) 34.1 Physical Exam Const alert, oriented x3, no apparent distress and healthy appearing General Appearance: cooperative GI normal to inspection, nondistended, normoactive bowel sounds, soft to palpation,non-tender and non-distended Percussion: normal to percussion Rectal Exam: deferred Results Lab / Micro Data Labs: Laboratory Results - last 24 hr 01/29/25 08:53: POC Glucose 142 H Assessment & Plan Assessment/Plan (1) Diverticulosis: QUALIFIERS: Diverticulosis site: diverticulosis of large intestine Diverticulosis bleeding: diverticulosis with bleeding Qualified Code(s): K57.31 - Diverticulosis of large intestine without perforation or abscess with bleeding (2) Diverticulitis: PLAN: Assessment and Plan Assessment and Plan (1) Diverticulitis: Status: Acute Plan: Patient notes he has a history of acute diverticulitis and GI bleed which he wastreated for A few years ago. He was concerned that he may have a recurrent episode of diverticulitis. He has been having left lower quadrant pain and put himself on ciprofloxacin and Flagyl. He also put himself on a clear liquid diet. He has progressed to a soft diet. He still has some antibiotics to finish his 14 days of therapy. Patient denies fever. The patient states that 6 weeks ago he had some vague left abdominal pain. I saw him for abdominal pain in the hospital. At that time he presented to the emergency room was admitted placed on IV Cipro metronidazole for 48 hours then home on the same and the bleeding had stopped and he was coming back to feeling normal. CT scan suggested some possible mesenteritis or sclerosing mesenteritis. He was discharged on mesalamine 2.5 mg orally twice daily. He hasnot fevers chills sweats nausea vomitingno recurrent bright red blood per rectum or melena he is having some tenesmus however. Has not had any weight loss that he notes. He is feeling a lot better. I told him we would have to get a colonoscopy 4 to 6 weeks after he is finished antibiotics and he was okay with that plan. 1. AGA suggests that antibiotics should be used selectively, rather than routinely, in patients with acute uncomplicated diverticulitis. 2. AGA suggests that colonoscopy be performed after resolution of acute diverticulitis in appropriate candidates to exclude the misdiagnosis of a colonic neoplasm if a high-quality examination of thecolon has not been recently performed. 3. AGA suggests against elective colonic resection in patients with an initial episode of acute uncomplicated diverticulitis. The decision to perform elective prophylactic colonic resection in this setting should be individualized. 4. AGA suggests a fiber-rich diet or fiber supplementation in patients with a history of acute diverticulitis. 5. AGA suggests against routinely advising patients with a history of diverticulitis to avoid consumption of seeds, nuts and popcorn. 6. AGA suggests against routinely advising patients with a history of diverticulitis to avoid the use of aspirin. 7. AGA suggests advising patients with a history of diverticulitis to avoid the use of nonaspirin NSAIDs if possible. 8. AGA recommends against the use of mesalamine after acute uncomplicated diverticulitis. 9. AGA suggests against the use of rifaximin after acute uncomplicated diverticulitis. 10. AGA suggests against the use of probiotics after acute uncomplicated diverticulitis. 11. AGA suggests advising patients with diverticular disease to consider vigorous physical activity. 01/29/25 1009 Cosigner Signature (if applicable): CC: Dr. Shane Contreras MD; Nadir Martines DO~ Signed [facility]07-18-2025 [facility] Medical Records Department [address] [place] [address] History Physical Exam 01/29/25 1007 MR#: [id number] Acct: [id number] Name: TANI WILLIAMSON Rep #: [id number] : 1955 69 From: Nadir Martines DO PCP: Dr. Shane Contreras MD Status:[facility] Location: [place] [address] HPI - General General Date of Admission: 01/29/25 Date of Service: 01/29/25 Chief Complaint: Diverticulitis HPI Narrative TANI WILLIAMSON, is a 69 M who presents with a chief Complaint: Diverticulitis Pt reports hx diverticulitis. Had an episode that started last weekend with LLQ abd pain. Treated with Cipro, Flagyl and a clear liquid diet for 4 days. Sx have improved. No longer having pain but feels lousy. Has moved to a soft diet. Pt states last episode before this was a year and a half ago. Last colonoscopy was 06/[address] Gerber. Has follow up questions. [facility] Medical History Indwelling urethral catheter present Diabetes Wears glasses Wears contact lenses Cancer Anxiety Back pain Dietary restriction CPAP (continuous positive airway pressure) dependence Non-smoker History of echocardiogram History of stress test Cardiology follow-up encounter PFO (patent foramen ovale) Diverticulitis PFO with atrial septal aneurysm History of skin cancer Hypothyroidism Essential hypertension Asthma Exposure to COVID-19 virus Home Medications ???Medication ???Instructions ???Recorded ???Last Taken ???Type montelukast 10 mg tablet 10 mg PO QHS 03/21/21 01/28/25 His tory cholecalciferol (vitamin D3) 50 2,000 unit PO DAILY 09/15/2101/28 History mcg (2,000 unit) tablet (Vitamin D3) metformin 500 mg tablet 500 mg PO QHS 09/15/21 01/28/25 Hi story tamsulosin 0.4 mg capsule 0.4 mg PO QHS 06/13/22 01/28/25 Hi story multivitamin 1 tab PO DAILY SUPPLEMENT 12/09/22 01/28/25 History zinc acetate 25 mg (zinc) capsule 30 mg PO DAILY SUPPLEMENT 3 01/28/25 History guaifenesin 600 mg tablet, 600 mg PO BID 05/09/23 01/28/25 Hi story extended release 12 hr fluticasone 232mcg-salmeterol 1 inh inhalation BID asthma 01/28/25 History 14mcg/actuation breath act,powder sensor levothyroxine 75 mcg capsule 75 mcg PO DAILY 06/20/23 01/28/25 History losartan 100 mg tablet 100 mg PO QHS 06/20/23 01/28/25 Hi story aspirin 81 mg capsule 81 mg PO DAILY 09/11/23 01/26/25 H istory atorvastatin 10 mg tablet (Lipitor) 10 mg PO QDAY 11/27/24 01/28/25 History albuterol sulfate 90 mcg/actuation 2 puff inhalation Q4H PRN PRN 01/28/25 History aerosol inhaler wheezing Allergy/AdvReac Type Severity Reaction Status Date / Time amoxicillin trihydrate (From Allergy Rash Verified 01/29/25 08:43 Augmentin) potassium clavulanate (From Allergy Rash Verified 01/29/25 08:43 Augmentin) Family History Mother Breast cancer Father Heart disease Cancer Kidney Surgical History S/P left inguinal hernia repair History of colonoscopy ( 06/2023) History of esophagogastroduodenoscopy (EGD) History of hemorrhoidectomy History of orchiectomy, unilateral History of drainage of abscess H/O hernia repair Social History Smoking Status: Never smoker alcohol intake: never substance use type: does not use caffeine: No (Over the last 3 weeks) ROS Constitutional Constitutional: Denies fatigue, fever(s), poor appetite, weight gain or weight loss Gastrointestinal Gastrointestinal: Denies belching, bloating, change in bowel habits, change in stool character, chewing difficulty, coffee ground emesis, constipation, cramping, diarrhea, dyspepsia, dysphagia, early satiety, excessive flatus, fecal incontinence, heartburn, hematemesis, hematochezia, hemorrhoids, loose stools, melena, nausea, odynophagia, rectal bleeding, tenesmus, vomiting or weight changes Vital Signs Vital Signs Vital Signs: 01/29/25 08:46 01/29/25 08:46 01/29/25 09:51 Temperature 98.3 F 98.3 F Temperature Source Temporal Pulse Rate 86 86 Respiratory Rate 18 18 Respiratory Pattern Normal Blood Pressure 140/75 H 140/75 H Blood Pressure Mean 96 Blood Pressure Source Monitor Blood Pressure Position Semi-Fowlers Blood Pressure Location Right Arm Pulse Ox 93 93 Oxygen Delivery Method Room Air Room Air Weight Weight: 287 lb 11.252 oz Body Mass Index (BMI) 34.1 Physical Exam Const alert, oriented x3, no apparent distress and healthy appearing General Appearance: cooperative GI normal to inspection, nondistended, normoactive bowel sounds, soft to pal (more content not included)...[facility]07-18-[address] [facility] Medical Records Department [address] [place] [address] Pre-Anesthesia Evaluation 01/29/25 0927 MR#: [id number] Acct: [id number] Name: TANI WILLIAMSON Rep #:[id number] : 1955 69 From: Luiz Dawson MD PCP: Dr. Shane Contreras MD Status:REG S DC Y Race: C Location: [place] [address] ASA Classification* ASA Classification ASA Classification: 2 Assessment & Plan Anesthesia* Anesthesia Assessment Anesthesia Assessment: Discussed sedation and/or anesthesia options, risks, benefits, and alternatives with patient/parents/legal guardian/POA. Questions invited. The patient/parents/legal guardian/POA seems to understand and agrees to proceedwith anesthesia plan. Reviewed the physical assessment, medical history, allergy history and patient home medications list prior to surgery/procedure/anesthetic and documented any changes. Performed airway and anesthesia risk assessments. Anesthesia Type Anesthesia Type: MAC History Source History Obtained from:: Patient and Chart Anesthesia Focused Assessment* Temperature: 98.3 F Pulse Rate: 86 Blood Pressure: 140/75 Respiratory Rate: 18 Pulse Ox: 93 Oxygen Delivery Method: Room Air Airway Assessment Mouth opens: >3 cm Mallampati Score: IV Teeth Condition: Caps/Crowns (Tooth #8 is capped.) and Missing (Missing right upper molar.) Neck Range of motion (ROM): Limited ROM (Somewhat Decreased) Labs Anesthesia Preop lab: CBC WBC 4.7 K/mm3 (4.4-11.0) 11/26/24 09:45 11/26/24 RBC 4.65 M/mm3 (4.6-6.2) 11/26/24 09:45 11/26/24 Hgb 14.0 g/dL (13.0-16.5) 11/26/24 09:45 11/26/24 Hct 41.6 % (40-54) 11/26/24 09:45 11/26/24 Plt Count 235 K/mm3 (150-450) 11/26/24 09:45 11/26/24 CHEMISTRY Potassium 3.8 mmol/L (3.3-5.1) 11/26/24 09:45 11/26/24 Sodium 137 mmol/L (133-145) 11/26/24 09:45 11/26/24 Magnesium 1.8 mg/dL (1.6-2.6) 12/26/22 10:24 12/26/22 BUN 13 mg/dL (4-19) 11/26/24 09:45 11/26/24 Creatinine 0.90 mg/dL (0.70-1.20) 11/26/24 09:45 11/26/24 Glucose 119 mg/dL (70-99) H 11/26/24 09:45 11/26/24 POC Glucose 118 mg/dL (74-106) H 09/16/23 17:48 09/16/23 TSH 2.140 uIU/mL (0.300-4.200) 11/26/24 09:45 0512/06 COAG PT 13.3 SECONDS (11.7-14.9) 12/29/17 13:24 Pre-Assessment Diagnosis/Proposed Procedure Planned Operative Procedure(s): CSCOPE Anesthesia History 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 When Was Last Pacemaker Check QUESTION #4 FULL TEXT: You/Your Family Experience fever (hyperthermia) with Anesthesia Last Oral Intake Last Oral intake: Last Oral Intake NPO since 05:30 01/29/25 08:46 Meds taken in AM with sips of No 01/29/25 08:46 water? 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 Female No 01/27/25 12:10 HX of Motion Sickness No 01/27/25 12:10 HX of N/V After Surgery No 01/27/25 12:10 Non-Smoker Yes 01/27/25 12:10 Duration of Surgery greater No 01/27/25 12:10 than 60 minutes Number of Risk Factors 1 01/27/25 12:10 PONV Score Low Risk 01/27/25 12:10 Height & Weight Height & Weight: Anesthesia: Height & Weight Height 6 ft 5 in 01/29/25 08:46 Weight: 130.5 kg 01/29/25 08:46 Body Mass Index (BMI) 34.1 01/29/25 08:46 Respiratory Assessment Respiratory Assessment - 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 Has anyone observed you stop breathing during sleep? STOP Results Positive 01/27/25 12:10 QUESTION #5 FULL TEXT : Do you snore loudly (louder than talking or can be heard through closeddoors)? 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 Specify any problems Hx of Preganancy in last 3 N/A 01/27/25 12:10 Months Nurse Filling Out Transfusion DSCHRIBER 01/27/25 12:10 & Questions: Date: 01/27/25 01/27/25 12:10 Time: 12:11 01/27/25 12:10 Patient unable to answer at this time (ie. 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 No 01/27/25 12:10 Gestational Age (in weeks): EDC: Hx Hx Para Hx Section SAB No 01/27/25 12:10 Active Medications Active Medications: Current Medications Generic Name Dose Route Start Last Admin Trade Name Freq PRN Reason Stop Dose Admin Lactated Ringer's 1,000 mls @ 15 mls/hr 01/29/25 08:45 01/29/25 08:56 IV 15 mls/hr .Q48H BONIFACIO Administration PFSH Medical History Indwelling urethral catheter present Diabetes Wears glasses Wears contact lenses Cancer Anxiety Back pain Dietary restriction CPAP (continuous positive airway pressure) dependence Non-smoker History of echocardiogram History of stress test Cardiology follow-up encounter PFO (patent foramen ovale) Diverticulitis PFO with atrial septal aneurysm History of skin cancer Hypothyroidism Essential hypertension Asthma Exposure to COVID-19 virus Home Medications ?Medication ?Instructions ?Recorded ?Last Taken ?Type montelukast 10 mg tablet 10 mg PO QHS 03/21/21 History cholecalciferol (vitamin D3) 50 2,000 unit PO DAILY 01/28/25 History mcg (2,000 unit) tablet (Vitamin D3) metformin 500 mg tablet 500 mg PO QHS 09/15/2101/28 History tamsulosin 0.4 mg capsule 0.4 mg PO QHS 06/13/2201/28 History multivitamin 1 tab PO DAILY SUPPLEMENT 01/28/25 History zinc acetate 25 mg (zinc) capsule 30 mg PO DAILY SUPPL EMENT 12/09/22 01/28/25 History guaifenesin 600 mg tablet, 600 mg PO BID 05/09/2301/12 History extended release 12 hr fluticasone 232mcg-salmeterol 1 inh inhalation BID ast hma 05/10/23 01/28/25 History 14mcg/actuation breath act,powder sensor levothyroxine 75 mcg capsule 75 mcg PO DAILY 06/20/23 01/28/25 History losartan 100 mg tablet 100 mg PO QHS 06/20/2301/28 History aspirin 81 mg capsule 81 mg PO DAILY 09/11/2301/12 History atorvastatin 10 mg tablet (Lipitor) 10 mg PO QDAY 11/1201/28/25 History albuterol sulfate 90 mcg/actuation 2 puff inhalation Q 4H PRN PRN 01/27/25 01/28/25 History aerosol inhaler wheezing Allergy/AdvReac Type Severity Reaction Status Date / Time amoxicillin trihydrate (From Allergy Rash Verified 01/29/25 08:43 Augmentin) potassium clavulanate (From Allergy Rash Verified 01/29/25 08:43 Augmentin) Family History Mother Breast cancer Father Heart disease Cancer Kidney Surgical History S/P left inguinal hernia repair History of colonoscopy (~06/2023) History of esophagogastroduodenoscopy (EGD) History of hemorrhoidectomy History of orchiectomy, unilateral History of drainage of abscess H/O hernia repair Social History Smoking Status: Never smoker alcohol intake: never substance use type: does not use caffeine: No (Over the last 3 weeks) Review of Systems (Anesthesia) ROS Narrative System reviewed and no additional complaints, except as documented. 01/29/25 0951 arabella BEATTY> Date _ Luiz Dawson MD Cosigner Signature: Date CC: ~ Signed [facility]05-16-2025 Evaluation note* Diagnosis Onset Date Resolution Status Admit Date Diverticulitis acute November 27, 2024 3:21pm [facility] Work Phone: 1(574) 896-343705-16-2025 Evaluation note* Diagnosis Onset Date Resolution Status Admit Date Diverticulitis acute November 27, 2024 3:21pm Diverticulitis acute January 29, 2025 8:19am Diverticulosis chronic January 29, 2025 8:19am [facility] Work Phone: 1(440) 453-480103-04-2024 Discharge summary Author All Gerber [facility] September 16, 2023 5:49pm Note Date/Time September 16, 2023 1:52 pm [facility] Medical Records Department [address] [place] [address] Instructions for Home/Discharge Instructions 09/16/23 1351 MR#: [id number] Acct: [id number] Name: TANI WILLIAMSON Rep #:[id number] : 1955 68 From: All Gerber MD PCP: Dr. Shane Contreras MD Status:REG S DC Discharge Instructions Procedure General Surgery Diet Discharge Diet: Light diet - advance as tolerated (if you have questions about your diet instructions, please talk to you doctor.) Activity Discharge Activity: May Not Drive (for 3-5 days or while taking narcotic pain medicine.) May shower in (days): 1 Lifting Restrictions: 10 pounds Dressing / Incision Call your doctor if your incision/area has: Continuous Slow Oozing, Sudden Increased Bleeding, Increased Pain/ Swelling, Increased Redness and Foul Smelling Discharge Call your doctor if you observe: Fever of 101 or Higher Suture Line Care: Avoid Pulling/Pushing and Avoid Pinching/Bending Additional Dressing/Incision Instructions:: Change or remove dressing in 4 days. Leave steri-strips in place for 1 week. Please continue your doxycycline till complete Please resume your MiraLAX therapy as soon as possible Follow Up Care Please Follow Up With: All Gerber MD When: Call [phone] to make an appointment to be seen on Saturday, September 23, 2023. Discharge Plan Admission Primary Reason for Your Visit: Sliding left inguinal hernia, recurrent Attending Provider: All Gerber Primary Care Provider: Shane Contreras Discharge Orders/Prescriptions Prescriptions: New hydrocodone-acetaminophen 5-325 mg tablet 1 tab PO Q6H PRN (Reason: pain) 3 Days Qty: 10 0RF Continued metformin 500 mg tablet 500 mg PO QHS Hold Instructions: Resume on 05/14/23. levothyroxine 50 mcg tablet 50 mcg PO DAILY Rx Instructions: 50 mcg M-F, 75 mcg on Sat/Sun tamsulosin 0.4 mg capsule 0.4 mg PO QHS doxycycline hyclate 100 mg capsule 100 mg PO BID Qty: 10 0RF montelukast 10 mg tablet 10 mg PO QHS multivitamin Tablet 1 tab PO DAILY zinc acetate 25 mg (zinc) Capsule 30 mg PO DAILY guaifenesin 600 mg tablet extended release 12hr 600 mg PO BID mecobalamin (vitamin B12) 500 mcg tablet,chewable 500 mcg PO DAILY fluticasone propion-salmeterol 232-14 mcg/actuation aero powdr breath act w/sensor 1 inh inhalation BID triamcinolone acetonide [Nasacort] 55 mcg aerosol,spray 1 spray intranasal BID Rx Instructions: administer into each nostril levothyroxine 75 mcg capsule 75 mcg PO SUSA losartan 100 mg tablet 100 mg PO QHS docusate sodium [Colace] 100 mg capsule 100 mg PO BID aspirin 81 mg capsule 81 mg PO DAILY cholecalciferol (vitamin D3) [Vitamin D3] 50 mcg (2,000 unit) tablet 2,000 unit PO DAILY Referrals / Follow Up: Shane Contreras MD [Primary Care Provider] - Disposition Disposition (needs filled in before D/C Order can be placed): Home, Self Care 09/16/23 1749<Electronically signed by All Gerber MD>All Gerber MD CC: Dr. Shane Contreras MD ~ Signed [facility] Work Phone: 1(620) 145-195703-04-2024 Procedure [facility] 09-16-2023 History and physical note [facility] September 16, 2023 3:12pm Note Date/Time September 16, 2023 1:50 pm [facility] Medical Records Department [address] [place] [id number] History & Physical Exam 09/16/23 1349 MR#: [id number] Acct: [id number] Name: TANI WILLIAMSON Rep #:[id number] : 1955 68 From: All Gerber MD PCP: Dr. 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 Is patient in pain?: No Allergies amoxicillin trihydrate [From Augmentin] Allergy (Verified 09/10/23 08:09) Rashpotassium clavulanate [From Augmentin] Allergy (Verified 09/10/23 08:09) Rash Medications montelukast 10 mg tablet 10 mg PO QHS 03/21/21 [History Confirmed 09/10/23] cholecalciferol (vitamin D3) 50 mcg (2,000 unit) tablet (Vitamin D3) 2,000 unit PO DAILY 09/15/21 [History Confirmed 09/10/23] metformin 500 mg tablet 500 mg PO QHS 09/15/21 [History Confirmed 09/10/23] tamsulosin 0.4 mg capsule 0.4 mg PO QHS 06/13/22 [History Confirmed 09/10/23] multivitamin 1 tab PO DAILY SUPPLEMENT 12/09/22 [History Confirmed 09/10/23] zinc acetate 25 mg (zinc) capsule 30 mg PO DAILY SUPPLEMENT 12/09/22 [History Confirmed 09/10/23] levothyroxine 50 mcg tablet 50 mcg PO DAILY 12/17/22 [History Confirmed 09/10/23] guaifenesin 600 mg tablet, extended release 12 hr 600 mg PO BID 05/09/23 [History Confirmed 09/10/23] mecobalamin (vitamin B12) 500 mcg chewable tablet 500 mcg PO DAILY 05/09/23 [History Confirmed 09/10/23] fluticasone 232mcg-salmeterol 14mcg/actuation breath act,powder sensor 1 inh inhalation BID asthma 05/10/23 [History Confirmed 09/10/23] levothyroxine 75 mcg capsule 75 mcg PO SUSA 06/20/23 [History Confirmed 09/10/23] losartan 100 mg tablet 100 mg PO QHS 06/20/23 [History Confirmed 09/10/23] peg 3350-electrolytes 236 gram-22.74 gram-6.74 gram-5.86 gram solution 4,000 ml PO ONCE #4,000 mL 06/20/23 [Rx Confirmed 09/10/23] triamcinolone acetonide 55 mcg nasal spray aerosol (Nasacort) 1 spray intranasalBID 06/20/23 [History Confirmed 09/10/23] docusate sodium 100 mg capsule (Colace) 100 mg PO BID 09/09/23 [History Confirmed 09/10/23] [facility] Medical History Abdominal pain Anxiety Asthma Back pain Cancer Cardiology follow-up encounter COVID-19 CPAP (continuous positive airway pressure) dependence Diabetes Dietary restriction Diverticulitis Essential hypertension Exposure to COVID-19 virus History of echocardiogram History of skin cancer History of stress test Hypothyroidism Lower GI bleeding Non-smoker LUKE on CPAP PFO (patent foramen ovale) PFO with atrial septal aneurysm Tachycardia Type 2 diabetes mellitus without complication Wears contact lenses Wears glasses Surgical History H/O hernia repair History of colonoscopy (~06/2023) History of drainage of abscess History of esophagogastroduodenoscopy (EGD) History of hemorrhoidectomy History of orchiectomy, unilateral Family History Mother Breast cancerFather Heart disease Cancer Kidney Social History Smoking Status: Never smoker alcohol intake: never substance use type: does not use caffeine: No (Over the last 3 weeks) HPI HPI HPI: Patient presents with worsening symptoms of abdominal pain with increasing left inguinal hernia. Patient has a known recurrent left inguinal hernia for which hehas been evaluated previously by Dr. Gerber. Patient contacted our office noting that he has had vague abdominal pain/discomfort for approximately 4-5 days. he has noted increased belching, change in bowel habits, increased flatus. He denies nausea, vomiting. He has been taking Dulcolax stool softeners 2 tablets twice a day for years to assist with bowel movements. Patient notes he seems to be having smaller bowel movements and not feeling as though he is emptying all of the way. He notes when he eats foods higher in fiber, he can feel that he hasa harder time digesting those foods. He notes most of his discomfort is in the mid abdomen, on either side of his umbilicus. Patient notes he has not been ableto completely reduce the left inguinal hernia. He denies pain at the hernia site. He notes his previous repair was laparoscopic at [facility] [place] approximately 8 years ago. Patient notes he has a history of acute diverticulitis and GI bleed which he wastreated for approximately 4 months ago. He was concerned that he may have a recurrent episode of diverticulitis, however patient notes that his current symptomsare different from his last diverticulitis episode. Patient denies fever. He hasplaced himself on a clear liquid diet. Patient did complete a lower scope with Dr. Gerber on 06/21 which demonstrated the following per Dr. Gerber's note: Impression: - Diverticulosis in the entire examined colon. - The examination was otherwise normal. - No specimens collected. No active rectal bleeding nor positively identified source of rectal bleeding Suspect descending colon diverticulitis as identified on CT imaging with bleeding. Colon is widely patent throughout. The patient's recurrent left inguinal hernia may be aggravating his colon evacuation and diverticular disease. Consider recurrent left inguinal herniorrhaphy Pending his ongoing progress. Patient notes the pain became worse and concerned him, so [facility]. A CT scan of the abdomen/pelvis was ordered and demonstrated No acute abnormality. 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 Left inguinal hernia containing a segment of large bowel with no acute associated findings. Diverticulosis with no evidence of diverticulitis. Patient was discharged to home and scheduled to follow-up with our office first thing in the morning. Patient notes he has a patent foramen ovale which was found incidentally during a cardiac work-up at [facility]. Patient notes the spares scheduler did not recommend starting a daily 81 mg aspirin for this issue. Patient wanted to mention this condition to prevent post-operative DVT's and the risk of having a stroke. Patient denies previous history of DVT's, myocardial infraction or stroke. Patient denies any previous complications with anesthesia or side effects. He zavaleta shave a history of sleep apnea, asthma and BPH. Patient notes heis a diabetic and is on metformin. He notes he is well controlled. Patient noteshe uses an inhaler twice day for asthma along with Nasacort. Patient denies any previous respiratory complications post-operatively from his asthma. Patient's previous history per Dr. Gerber: 67-year-old gentleman who presents today to discuss left-sided abdominal pain and episode of rectal bleeding. The patient states that 6 weeks ago he had some vague left abdominal pain. He was seen by hernia specialist in [facility] and it was felt that his recurrent left inguinal hernia was not a component. May 09 he had copious bright red rectal bleeding that went on from 6 PM to midnight. He presented to the emergency room was admitted placed on IV Cipro metronidazole for 48 hours then home on the same and the bleeding had stopped and he was coming back to feeling normal. He had also been discharged on mesalamine 2.5 mg orally twice daily had been seen by library supervisor Dr. Nadir Martines. CT scan suggestedsome possible mesenteritis or sclerosing mesenteritis in the left upper quadrantbut that was similar to a previous CT scan that had been obtained December 29, 2018 and also 1 previously in 2017. After being off of the oral antibiotics just forseveral days he was feeling normal actually was able to walk but after a week ofthat had resumed nonspecific left-sided abdominal pain so he resumed antibiotic on his own discretion ciprofloxacin metronidazole and then just stopped for 5 days ago. He has not fevers chills sweats nausea vomiting no recurrent bright red blood per rectum or melena he is having some tenesmus however. Has not had any weight loss that he notes. It is of note that in the past he had had some spotty bright red rectal bleedingon the tissue and in approximately 2017 2018 he had a surgical hemorrhoidectomy which resolved that problem. This episode of rectal bleeding was different and that it was copious. He feels that this episode of rectal bleeding was far different than his remote history of what was felt to be hemorrhoidal bleeding. 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 The patient makes note that he has had a previous laparoscopic inguinal hernia repair performed at [facility] approximately 8 years ago. Just within the past 6 months he has noticed a recurrence. He went to hernia specialist in [facility] during this time. Of abdominal pain and it was feltby the specialist that the inguinal hernia was not the source of the discomfort and recommended that Dr. Williamson consider potential future elective recurrent repair but because of the size of the hernia this was felt not to be emergent. The patient does not recall a particular incident that would have caused the recurrent left inguinal hernia. The tenesmus that he is feeling of needing to defecate without being able to. Other pertinent history includes a previous right orchiectomy for undescended testicle. A laparoscopic left inguinal herniorrhaphy. His most recent colonoscopy was done by Dr. Abdulkadir Blanco on January 02 demonstrating pancolonic diverticulosis internal hemorrhoids but no other acute findings at that time. The patient has some obstructive sleep apnea. He has a patent foramen ovale. He recently had a stress test that was unremarkable and he saw Dr. Emery Estrada for that cardiac workup as he was having some dizziness with subsequent was detected to be the statin medication. 67-year-old gentleman who I recently got to see in the office on June 21, 2023 with left-sided abdominal pain. To help evaluate him on June 21, 2023 Iperformed a colonoscopy. Diverticulosis throughout the entire colon was identified. The patient on CT imaging was felt to have a suspected area of dilated reticulitis in the descending colon but the colon appeared to be widely patent at that location. The patient does have a recurrent left inguinal herniawhich I felt might have been aggravating his diverticular disease. He has had aprevious laparoscopic left inguinal hernia repair done at [facility] about 8 years ago. Patient's colonoscopy he has been feeling better. He is lighten up his diet andhe thinks that makes a difference. He he agrees that he thinks that the left inguinal hernia is proving to be more symptomatic than he initially thought. ROS General General: No weight change, appetite, fatigue, colon cancer, breast cancer or weakness HEENT HEENT: No difficulty swallowing, eye injury, eye surgery, swollen glands or hoarseness Endo Endocrine: Yes thyroid disease and diabetes mellitus; No thyroid cancer, Hair loss, heat intolerance or cold intolerance Skin Skin: No rash or changing moles Breast Breast: No left breast lump, right breast lump, nipple discharge, breast pain, abnormal mammogram, abnormal US or breast enlargement Musc Musculoskeletal: No back problems, arthritis, rheumatoid arthritis, gout or joint pain Cardio Cardiovascular: No murmur, pacemaker, heart disease, atrial fibrillation, high blood pressure, heart attack, heart stent, palpitations, shortness of breat withexertion or chest pain Additional Details: PFO Psych Psychiatric: No depression, anxiety or hearing voices Resp Respiratory: No shortness of breath, Yes sleep apnea, No cough, No COPD, Yes asthma, No emphysema and No wheezing Gastro Gastrointestinal: Yes abdominal pain, No nausea or vomiting, No diarrhea, No constipation, Yes blood in stool, No acid reflux, No hemorrhoids, No ulcers, No gallbladder problem and No black,tarry stools Larry Hematologic: No blood thinners, No blood disorders, No bleeding, No anemia and No blood clots Neuro Neurologic: No system reviewed and no additional complaints, except as documented, No as per HPI, No abnormal gait, No abnormal hearing, No abnormal movements, No abnormal speech, No behavioral changes, No burning sensations, No confusion, No convulsions, No disequilibrium, No dizziness, No localized weakness, No frequent falls, No headache(s), No lack of coordination, No loss ofvision, No memory loss, No numbness, No other visual disturbances, No radicular pain, No restless legs, No sensory deficit, No syncope, No tingling, No tremor(s), No weakness and No other Exam Const General: cooperative, healthy appearing, comfortable and no acute distress [facility] Head: normal to inspection Eyes General: appearance normal, both eyes and all related structures Neck Neck: normal visual inspection Neck mass: No Carotids: normal carotid upstroke Chest Chest palpation & inspection: normal inspection of the chest Resp Effort & Inspection: normal respiratory effort Auscultation: clear to auscultation bilaterally Cardio Rate: regular rate Rhythm: regular rhythm GI Inspection: large pannus and obesity Palpation: soft, hernia (large left inguinal hernia with bowel, partially reducible) and tender periumbilically Auscultation: hypoactive bowel sounds Musc Cervical Spine: normal cervical lordosis Skin General: no rashes or lesions noted Neuro General: no focal motor deficits and CN's II-XI intact bilaterally Extrem General: normal to inspection Psych Appearance: grossly normal Affect: normal affect Assessment and Plan Assessment and Plan (1) Recurrent left inguinal hernia: Status: Acute Plan: I have discussed this patient with Dr. Gerber. Patient has had recent bowel habitchanges along with increasing size of the hernia for which he is no longer able to reduce the hernia completely while laying supine. 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 Dr. Gerber has previously discussed an open recurrent left inguinal hernia repair with possible orchiectomy. Procedure details, risks and benefits have been reviewed. Patient has had the opportunity to ask and have questions answered. Patient had a previous right orchiectomy for an undescended testes. Patient's current symptoms may be from his increasing recurrent left inguinal hernia causing partial colonic obstruction of bowel. I do believe it would be pertinent for the patient to proceed with a hernia repair within the very near future to avoid an emergency hernia repair with possible bowel resection. We recommend the patient start an 81 mg aspirin daily and continue the medication for the procedure. He will need to start Miralax 2 days prior to the procedure. Patient is voluntarily placing himself on a clear liquid diet the day prior to the procedure. Patient will continue his Flomax for the procedure. Patient verbally understands and agrees to proceed with the proposed procedure. Patient is aware that if current symptoms worsen, patient's surgery may need to be movedup. He will call our office with a progress report tomorrow. Patient Instructions: Start taking 81mg aspirin daily today. Start taking miralax 2 days prior to surgery. On September 13, [address] Romain Fox incised and drained a verysmall abscess right thigh. Placed the patient on doxycycline. The patient appears to be making good progress. The patient has been on doxycycline since. The wound had minimal purulent drainage. He now is behaving the way he has multiple these areas simply turning dry and resolving. He thinks they representsmall ingrown hairs. He has no similar problem left groin. He has had appropriate drainage and has been on appropriate antibiotics. With that as a discussion we will proceed with the left inguinal hernia repair. All Gerber M.D., F.A.C.S. 09/16/23 1512 <Electronically signed by All Gerber MD> Cosigner Signature (if applicable): CC: Dr. Shane Contreras MD; Dr. All Gerber MD~ Signed [facility] Work Phone: 1(814) 822-467912-08-2023 History and physical note Author All Gerber [facility] June 21, 2023 5:46am Note Date/Time June 21, 2023 5 :46am [facility] Medical Records Department [address] [place] [address] History & Physical Exam 06/21/23 0546 MR#: [id number] Acct: [id number] Name: TANI WILLIAMSON Rep #:[id number] : 1955 67 From: All Gerber MD PCP: Dr. 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 06/13/22 [History Confirmed 06/20/23] tamsulosin 0.4 mg capsule 0.4 mg PO DAILY 06/13/22 [History Confirmed 06/20/23] multivitamin 1 tab PO DAILY SUPPLEMENT 12/09/22 [History Confirmed 06/20/23] oxymetazoline 0.05 % nasal spray (Afrin (oxymetazoline)) 2 spray intranasal Q12H. 12/09/22 [History Confirmed 06/20/23] zinc acetate 25 mg (zinc) capsule 30 mg PO DAILY SUPPLEMENT 12/09/22 [History Confirmed 06/20/23] aspirin 81 mg tablet,delayed release (Adult Low Dose Aspirin) 81 mg PO DAILY 12/17/22 [History Confirmed 06/20/23] levothyroxine 50 mcg tablet 50 mcg PO DAILY 12/17/22 [History Confirmed 06/20/23] losartan 100 mg tablet 100 mg PO DAILY #90 tabs 12/23/22 [Rx Confirmed 06/20/23] guaifenesin 600 mg tablet, extended release 12 hr 600 mg PO BID 05/09/23 [History Confirmed 06/20/23] mecobalamin (vitamin B12) 500 mcg chewable tablet 500 mcg PO DAILY 05/09/23 [History Confirmed 06/20/23] fluticasone 232mcg-salmeterol 14mcg/actuation breath act,powder sensor 1 inh inhalation BID asthma 05/10/23 [History Confirmed 06/20/23] mesalamine 1.2 gram tablet,delayed release 2.4 g (2 x 1.2 gram) PO DAILY 8 weeks#112 tabs 05/11/23 [Rx Confirmed 06/20/23] pantoprazole 20 mg tablet,delayed release 20 mg PO DAILY 06/20/23 [History Confirmed 06/20/23] peg 3350-electrolytes 236 gram-22.74 gram-6.74 gram-5.86 gram solution 4,000 ml PO ONCE #4,000 mL 06/20/23 [Rx Confirmed 06/20/23] triamcinolone acetonide 55 mcg nasal spray aerosol (Nasacort) 2 spray intranasalBID 06/20/23 [History Confirmed 06/20/23] [facility] Medical History (Updated 06/20/23 @ 13:[address] All Gerber MD) Abdominal pain Asthma COVID-19 COVID-19 Diverticulitis Essential hypertension Exposure to COVID-19 virus GERD (gastroesophageal reflux disease) History of skin cancer Hypothyroidism Lower GI bleeding LUKE on CPAP PFO with atrial septal aneurysm Tachycardia Type 2 diabetes mellitus without complication Surgical History (Updated 06/20/23 @ 12:56 by Nia Henry) H/O hernia repair History of drainage of abscess History of hemorrhoidectomy History of orchiectomy, unilateral Family History Mother Breast cancerFather Heart disease Cancer Kidney Social History Smoking Status: Never smoker alcohol intake: never substance use type: does not use caffeine: No (Over the last 3 weeks) HPI HPI HPI: 57-year-old gentleman who presents today to discuss left-sided abdominal pain and episode of rectal bleeding. The patient states that 6 weeks ago he had some vague left abdominal pain. He was seen by hernia specialist in [facility] and it was felt that his recurrent left inguinal hernia was not a component. May 09 he had copious bright red rectal bleeding that went on from 6 PM to midnight. He presented to the emergency room was admitted placed on IV Cipro metronidazole for 48 hours then home on the same and the bleeding had stopped and he was coming back to feeling normal. He had also been discharged on mesalamine 2.5 mg orally twice daily had been seen by library supervisor Dr. Schmitz Friend. CT scan suggestedsome possible mesenteritis or sclerosing mesenteritis in the left upper quadrantbut that was similar to a previous CT scan that had been obtained December 29, 2018 and also 1 previously in 2018. After being off of the oral antibiotics just forseveral days he was feeling normal actually was able to walk but after a week ofthat had resumed nonspecific left-sided abdominal pain so he resumed antibiotic on his own discretion ciprofloxacin metronidazole and then just stopped for 5 days ago. He has not fevers chills sweats nausea vomiting no recurrent bright red blood per rectum or melena he is having some tenesmus however. Has not had any weight loss that he notes. It is of note that in the past he had had some spotty bright red rectal bleedingon the tissue and in approximately 2017 2018 he had a surgical hemorrhoidectomy which resolved that problem. This episode of rectal bleeding was different and that it was copious. He feels that this episode of rectal bleeding was far different than his remote history of what was felt to be hemorrhoidal bleeding. 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 The patient makes note that he has had a previous laparoscopic inguinal hernia repair performed at [facility] approximately 8 years ago. Just within the past 6 months he has noticed a recurrence. He went to hernia specialist in [facility] during this time. Of abdominal pain and it was feltby the specialist that the inguinal hernia was not the source of the discomfort and recommended that Dr. Williamson consider potential future elective recurrent repair but because of the size of the hernia this was felt not to be emergent. The patient does not recall a particular incident that would have caused the recurrent left inguinal hernia. The tenesmus that he is feeling of needing to defecate without being able to. Other pertinent history includes a previous right orchiectomy for undescended testicle. A laparoscopic left inguinal herniorrhaphy. His most recent colonoscopy was done by Dr. Abdulkadir Blanco on January 02 demonstrating pancolonic diverticulosis internal hemorrhoids but no other acute findings at that time. The patient has some obstructive sleep apnea. He has a patent foramen ovale. He recently had a stress test that was unremarkable and he saw Dr. Emery Estrada for that cardiac workup as he was having some dizziness with subsequent was detected to be the statin medication ROS General General: No weight change, appetite, fatigue, colon cancer, breast cancer or weakness HEENT HEENT: No difficulty swallowing, eye injury, eye surgery, swollen glands or hoarseness Endo Endocrine: Yes thyroid disease and diabetes mellitus; No thyroid cancer, Hair loss, heat intolerance or cold intolerance Skin Skin: No rash or changing moles Breast Breast: No left breast lump, right breast lump, nipple discharge, breast pain, abnormal mammogram, abnormal US or breast enlargement Musc Musculoskeletal: No back problems, arthritis, rheumatoid arthritis, gout or joint pain Cardio Cardiovascular: No murmur, pacemaker, heart disease, atrial fibrillation, high blood pressure, heart attack, heart stent, palpitations, shortness of breat withexertion or chest pain Additional Details: PFO Psych Psychiatric: No depression, anxiety or hearing voices Resp Respiratory: No shortness of breath, Yes sleep apnea, No cough, No COPD, Yes asthma, No emphysema and No wheezing Gastro Gastrointestinal: Yes abdominal pain, No nausea or vomiting, No diarrhea, No constipation, Yes blood in stool, No acid reflux, No hemorrhoids, No ulcers, No gallbladder problem and No black,tarry stools Larry Hematologic: No blood thinners, No blood disorders, No bleeding, No anemia and No blood clots Neuro Neurologic: No system reviewed and no additional complaints, except as documented, No as per HPI, No abnormal gait, No abnormal hearing, No abnormal movements, No abnormal speech, No behavioral changes, No burning sensations, No confusion, No convulsions, No disequilibrium, No dizziness, No localized weakness, No frequent falls, No headache(s), No lack of coordination, No loss ofvision, No memory loss, No numbness, No other visual disturbances, No radicular pain, No restless legs, No sensory deficit, No syncope, No tingling, No tremor(s), No weakness and No other Exam Const General: cooperative and healthy appearing [facility] Head: normal to inspection Eyes General: appearance normal, both eyes and all related structures Neck Neck: normal visual inspection Chest Chest palpation & inspection: normal inspection of the chest Resp Effort & Inspection: normal respiratory effort Auscultation: clear to auscultation bilaterally Cardio Rate: regular rate Rhythm: regular rhythm GI Palpation: soft and no hepatosplenomegaly Other: Minimal tenderness in the right lower quadrant to deep palpation and in the epigastric area overlying the aorta. No tenderness in the left mid abdomen or left lower quadrant. Bowel sounds have occasional tinkles. Other: Recurrent left inguinal hernia involving: Which is mostly but not completely reducible. Nontender. Musc Cervical Spine: normal cervical lordosis Skin General: no rashes or lesions noted Neuro General: patient alert, patient awake and patient oriented x3 Extrem General: normal to inspection Psych Appearance: grossly normal Assessment and Plan Assessment and Plan (1) Diverticulitis: Status: Acute (2) Recurrent left inguinal hernia: Status: Acute (3) Lower GI bleeding: Status: Acute Plan: Patient presents because of a generalized feeling of unwellness with a nondescript left-sided abdominal discomfort. He has recently had an episode of bright red rectal bleeding with etiology not known but felt to be possibly secondary to acute sigmoid diverticulitis. Dr. Schmitz Friend gastroenterology has seen the patient and questions whether this episode of bright red rectal bleeding was actually diverticulitis or whether it could be a an otherwise nonspecific colitis. The patient has a recurrent left inguinal hernia which at least on my inspectionlikely has had a component of at least partial obstruction even though the area is reducible. Patient's had a surgical hemorrhoidectomy in the past and this episode of rectalbleeding seemingly different than his previous 1 but still bright red blood per rectum with no evidence of clot. Putting this altogether as a single diagnosis is challenging. I propose for deb colonoscopy with possible biopsy or polypectomy as indicated we will expedite this for the patient tomorrow. I am suspicious that his recurrent left inguinalhernia is at least providing some component of partial restriction partial obstruction which could have complicated an episode of acute diverticulitis. What is felt to be possible mesenteritis identified on previous CAT scan dating all the way back to 2018 and 2019 with similar findings identified now and yet in the interim being completely asymptomatic makes it difficult suggest that this is a sclerosing mesenteritis. CT imaging etiology unclear. I have suggested the patient colonoscopy. Suggested to him that he may very well need to proceed with a recurrent left inguinal hernia repair that would need to be done in an open technique. It is not clear to me that the rectal bleeding is potentially not anorectal nature he is having tenesmus. We will proceed and then make further recommendations as indicated. We will expedite his colonoscopy tomorrow morning. Copy: Dr. Shane Gerber M.D., F.Terrence.C.S. I have examined the patient and the H&P has been reviewed. There are no clinicalchanges since date of exam. All Gerber M.D., Las[place].Terrence.C.S. 06/21/23 0546 <Electronically signed by All Gerber MD> Cosigner Signature (if applicable): CC: Dr. Shane Contreras MD; Dr. All Gerber MD~ Signed [facility] Work Phone: 1(484) 524-100912-08-2023 Procedure [facility] 06-21-2023 Procedure [facility]10-28-2023 Discharge summary Author Todd Conner [facility] May 11, 2023 1:34pm Note Date/Time May 11, 2023 1 :28pm [facility] Medical Records Department [address] [place] [address] Discharge Summary 05/11/23 1325 MR#: [id number] Acct: [id number] Name: TANI WILLIAMSON Rep #:[id number] : 1955 67 From: Todd Conner DO PCP: Dr. Shane Contreras MD Status:ADM I N Location: [place] [address] Providers Date of Admission: 05/10/23 Primary Care Physician: Dr. Shane Contreras MD Consultations 05/10/23 01:10 Consult: Gastroenterology Routine Consulting Provider: [facility] Reason for Consult: GI bleed EMERGENT Consult: No MD Notified: Yes Date Notified: 05/10/23 Time Notified: 06:14 Method of Notification: Text Reason For Visit: BRIGHT RED BLOOD PER RECTUM Diagnosis Discharge Diagnosis (1) Acute diverticulitis: Status: Acute Code(s): K57.92 - Diverticulitis of intestine, part unspecified, without perforation or abscess without bleeding Plan: CT showed acute uncomplicated acute descending colonic diverticulitis Cipro and metronidazole for 14 days. GI also recommending mesalamin 2.4 g/d. Outpt colonoscopy in 8-12 weeks. (2) Diverticular hemorrhage: Status: Acute Code(s): K57.31 - Diverticulosis of large intestine without perforation or abscess with bleeding Plan: seems to be improving. 2/2 diverticulosis Consider bleeding scan if worsens again. GI consult (3) Acute blood loss anemia: Status: Acute Code(s): D62 - Acute posthemorrhagic anemia Plan: H/H dropped from 14.7 to 11.4 Monitor No need for TF at this time. Plan Chronic conditions: * Diabetes mellitus Blood glucose is stable. Hold home metformin in the hospital setting. Can hold on accucheck for now given stability. * Hypertension Stable. Home blood pressure medication continued. Losartan * BPH: tamsulosin * hypothyroidism: levothyroxine VTE prophylaxis: SCDs. Medications at Discharge Home Medications montelukast 10 mg tablet 10 mg PO DAILY 03/21/21 cholecalciferol (vitamin D3) 50 mcg (2,000 unit) tablet (Vitamin D3) 2,000 unit PO DAILY 09/15/21 metformin 500 mg tablet 500 mg PO DAILY 09/15/21 albuterol sulfate 90 mcg/actuation aerosol inhaler 2 puff inhalation Q6H PRN . 06/13/22 tamsulosin 0.4 mg capsule 0.4 mg PO DAILY 06/13/22 multivitamin 1 tab PO DAILY SUPPLEMENT 12/09/22 omeprazole 40 mg capsule,delayed release 40 mg PO DAILY GERD 12/09/22 oxymetazoline 0.05 % nasal spray (Afrin (oxymetazoline)) 2 spray intranasal Q12H. 12/09/22 rosuvastatin 5 mg tablet 5 mg PO QHS CHOLESTEROL 12/09/22 zinc acetate 25 mg (zinc) capsule 30 mg PO DAILY SUPPLEMENT 12/09/22 aspirin 81 mg tablet,delayed release (Adult Low Dose Aspirin) 81 mg PO DAILY 12/17/22 levothyroxine 50 mcg tablet 50 mcg PO DAILY 12/17/22 losartan 100 mg tablet 100 mg PO DAILY #90 tabs 12/23/22 guaifenesin 600 mg tablet, extended release 12 hr 600 mg PO BID 05/09/23 mecobalamin (vitamin B12) 500 mcg chewable tablet 500 mcg PO DAILY 05/09/23 triamcinolone acetonide 55 mcg nasal spray aerosol (Nasacort) 2 spray intranasalDAILY 05/09/23 fluticasone 232mcg-salmeterol 14mcg/actuation breath act,powder sensor 1 inh inhalation BID asthma 05/10/23 ciprofloxacin HCl 500 mg tablet 500 mg PO BID #24 tabs 05/11/23 mesalamine 1.2 gram tablet,delayed release 2.4 g (2 x 1.2 gram) PO DAILY 8 weeks#112 tabs 05/11/23 metronidazole 500 mg tablet 500 mg PO Q8H #36 tabs 05/11/23 Hospital Course Operations None Procedures None Summary of Care Provided Minutes Spent on Discharge: 35 Hospital Course: Patient presents with part of the blood per rectum. Patient has several episodes. CAT scan of his abdomen pelvis showed complicated acute descending colon diverticulitis. Patient was started on broad-spectrum antibiotics with ciprofloxacin and metronidazole. Patient was seen in consultation by gastroenterology who recommended 2-week course of ciprofloxacin and metronidazole and 2.4 g/day of mesalamine. Patient will follow-up with GI the next 8 to 6 to 12 weeks for outpatient colonoscopy. Patient does not have any further bleeding. Patient is tolerated his diet. Patient will be discharged home in stable condition. Weight / BMI Weight Weight: 120.2 kg Body Mass Index (BMI) 31.4 ABG / Lab / Microbiology Data 05/11/23 07:55 05/11/23 07:55 Laboratory: Laboratory Results - last 24 hr 05/10/23 17:54: Hgb 11.4 L, Hct 35.7 L 05/11/23 07:55: WBC 4.6, RBC 3.68 L, Hgb 10.7 L, Hct 33.5 L, MCV 91.0, MCH 29.1,MCHC 31.9 L, RDW Std Deviation 46.8 H, RDW Coeff of Kam 14.0, Plt Count 246, MPV9.6, Immature Gran % (Auto) 0.900, Neut % (Auto) 57.2, Lymph % (Auto) 26.9, [place]% (Auto) 11.1 H, Eos % (Auto) 3.5, Baso % (Auto) 0.4, Absolute Neuts (auto) 2.6,Absolute Lymphs (auto) 1.24, Nucleated RBC % 0, Sodium 140, Potassium 3.7, Chloride 109 H, Carbon Dioxide 27.0, Anion Gap 4 L, BUN 8, Creatinine 0.78, Estim Creat Clear Calc 91.58, Est GFR (MDRD) Af Amer 128, Est GFR (MDRD) Non-Af 106, BUN/Creatinine Ratio 10.3, Glucose 115 H, Calcium 8.2 L Microbiology: Microbiology 05/09/23 20:33 Stool C. difficile DNA Amplification - Final D/C Instructions Discharge Diet: - ([place] diet, advance as tolerated.) Call your doctor if you observe: - (recurrent rectal bleeding. ) Meaningful Use Info Meaningful Use Diagnoses (Choose all that apply): None applicable Discharge Plan Admission Admit Date/Time: 05/10/23 16:11 Primary Reason for Your Visit: diverticulitis Attending Provider: Todd Conner Primary Care Provider: Shane Contreras Consulting Providers: Woodrow Fox Instructions Additional Instructions / Restrictions: He had acute diverticulitis and GI bleed due to diverticulosis. You will be on Cipro as well as Flagyl for the diverticulitis. You will be on those for 12 more days including 2-week course of antibiotics. Dr. Martines is recommended being on mesalamine 2.4 g daily. Please follow-up for outpatient colonoscopy inthe next few months. Please return if you have recurrent GI bleed. Discharge Orders/Prescriptions Prescriptions: New ciprofloxacin HCl 500 mg tablet 500 mg PO BID Qty: 24 0RF metronidazole 500 mg tablet 500 mg PO Q8H Qty: 36 0RF mesalamine 1.2 gram tablet,delayed release (DR/EC) 2.4 g PO DAILY 56 Days Qty: 112 0RF Continued levothyroxine 50 mcg tablet 50 mcg PO DAILY Rx Instructions: 50 mcg M-F, 75 mcg on Sat/Sun tamsulosin 0.4 mg capsule 0.4 mg PO DAILY albuterol sulfate 90 mcg/actuation HFA aerosol inhaler 2 puff inhalation Q6H PRN (Reason: .) montelukast 10 mg tablet 10 mg PO DAILY multivitamin Tablet 1 tab PO DAILY zinc acetate 25 mg (zinc) Capsule 30 mg PO DAILY omeprazole 40 mg Capsule,Delayed Release(Dr/Ec) 40 mg PO DAILY oxymetazoline [Afrin (oxymetazoline)] 0.05 % [place],Non-Aerosol 2 spray INTRANASAL Q12H rosuvastatin 5 mg tablet 5 mg PO QHS Patient Comments: TAKE 1 TABLET BY MOUTH AT BEDTIME guaifenesin 600 mg tablet extended release 12hr 600 mg PO BID triamcinolone acetonide [Nasacort] 55 mcg aerosol,spray 2 spray intranasal DAILY Rx Instructions: administer into each nostril mecobalamin (vitamin B12) 500 mcg tablet,chewable 500 mcg PO DAILY fluticasone propion-salmeterol 232-14 mcg/actuation aero powdr breath act w/sensor 1 inh inhalation BID cholecalciferol (vitamin D3) [Vitamin D3] 50 mcg (2,000 unit) tablet 2,000 unit PO DAILY losartan 100 mg tablet 100 mg PO DAILY Qty: 90 3RF Held metformin 500 mg tablet 500 mg PO DAILY Hold Instructions: Resume on 05/14/23. aspirin [Adult Low Dose Aspirin] 81 mg tablet,delayed release (DR/EC) 81 mg PO DAILY Hold Instructions: Resume on 05/14/23. Referrals / Follow Up: Shane Contreras MD [Primary Care Provider] - Within 2 Weeks Nadir Martines DO [Med Staff - Active Staff] - Within 3 Months Disposition Disposition (needs filled in before D/C Order can be placed): Home, Self Care 05/11/23 1334 <Electronically signed by Todd Conner DO> Cosigner Signature (if applicable): CC: Dr. Todd Conner DO; Dr. Shane Contreras MD~ Signed ADDENDUM by Dr. Todd Conner DO on 05/11/23 at 1334 Visit Charges Inpatient E&M: 52360 Disch Hosp >30min 05/11/23 1334<Electronically signed by Todd Conner DO> Cosigner Signature (if applicable): cc: Dr. Todd Conner DO; Dr. Shane Contreras MD ~* Signed [facility] Work Phone: 1(492) 444-433810-28-2023 Progress note Author Todd Conner [facility] May 11, 2023 1:25pm Note Date/Time May 11, 2023 8 :20am [facility] Medical Records Department [address] [place] [address] Progress Note - Hospitalist 05/11/2318 MR#: [id number] Acct: [id number] Name: TERITANI JACOBST Rep #:[id number] : 1955 67 From: Todd Conner DO PCP: Dr. Shane Contreras MD Status:ADM I N Location: [address] Reason for Visit Reason for Visit: Diagnoses Acute posthemorrhagic anemia (05/10/23) Type 2 diabetes mellitus without complications (05/10/23) Essential (primary) hypertension (05/10/23) Diverticulosis of large intestine without perforation or abscess with bleeding (05/10/23) Diverticulosis of intestine, part unspecified, without perforation or abscess without bleeding (05/10/23) Diverticulitis of intestine, part unspecified, without perforation or abscess without bleeding (05/10/23) Subjective Subjective No further bleeding. Has been tolerating diet. Objective Data Objective Data Vital Signs: Vital Signs Temp Pulse Resp BP Pulse Ox O2 Del Method 36.5 C L 69 18 112/69 92 Room Air 05/11/23 06:37 05/11/23 06:37 05/11/23 06:37 05/11/23 06:37 05/11/23 07:08 05/11/23 07:08 Oxygen Delivery Method Room Air Weight: 120.2 kg Body Mass Index (BMI) 31.4 Intake & Output: Intake and Output for Last 24 Hours 05/09/23 05/10/23 05/11/23 23:59 23:59 23:59 Intake Total 1000 / 1600 4698.75 / 4698.75 50 / 50 Balance 1000 / 1600 4698.75 / 4698.75 50 / 50 Lab / Micro Data 05/11/23 07:55 05/11/23 07:55 Labs: Laboratory Results - last 24 hr 05/10/23 07:10: Sodium 138, Potassium 3.9, Chloride 107, Carbon Dioxide 26.0, Anion Gap 5, BUN 11, Creatinine 0.76, Estim Creat Clear Calc 91.58, Est GFR (MDRD) Af Amer 131, Est GFR (MDRD) Non-Af 109, BUN/Creatinine Ratio 14.4, Glucose 118 H, Calcium 8.2 L, Total Bilirubin 1.10 H, AST 7 L, ALT 18, Alkaline Phosphatase 41 L, Total Protein 6.2 L, Albumin 2.8 L, Globulin 3.4, Albumin/Globulin Ratio 0.8 L 05/10/23 11:43: POC Glucose 134 H 05/10/23 12:05: Hgb 11.4 L, Hct 35.7 L 05/10/23 17:54: Hgb 11.4 L, Hct 35.7 L Micro: Microbiology 05/09/23 20:33 Stool C. difficile DNA Amplification - Final Physical Exam Const alert and no apparent distress HEENT head/scalp atraumatic Neuro Sensorium / Orientation: awake and alert Psych affect normal Assessment & Plan Assessment/Plan (1) Acute diverticulitis: PLAN: CT showed acute uncomplicated acute descending colonic diverticulitis Cipro and metronidazole for 14 days. GI also recommending mesalamin 2.4 g/d. Outpt colonoscopy in 8-12 weeks. (2) Diverticular hemorrhage: PLAN: seems to be improving. 2/2 diverticulosis Consider bleeding scan if worsens again. GI consult (3) Acute blood loss anemia: PLAN: H/H dropped from 14.7 to 11.4 Monitor No need for TF at this time. PLAN: Plan Chronic conditions: * Diabetes mellitus Blood glucose is stable. Hold home metformin in the hospital setting. Can hold on accucheck for now given stability. * Hypertension Stable. Home blood pressure medication continued. Losartan * BPH: tamsulosin * hypothyroidism: levothyroxine VTE prophylaxis: SCDs. 05/11/23 1325 <Electronically signed by Todd Conner DO> Cosigner Signature (if applicable): CC: ~ Signed [facility] Work Phone: 1(774) 280-780510-27-2023 Consult note Author Nadir Martines [facility] May 10, 2023 4:40pm Note Date/Time May 10, 2023 4 :35pm [facility] Medical Records Department [address] [place] [address] Consultation - GI 05/10/23 1634 MR#: [id number] Acct: [id number] Name: TANI WILLIAMSON Rep #:[id number] : 1955 67 From: Nadir Martines DO PCP: Dr. Shane Contreras MD Status:ADM I NO Location: [place] [address] HPI Consult Data Date of Consult: 05/10/23 HPI Narrative Reason for Consultation: Lower GI bleeding HPI Narrative: TANI WILLIAMSON, is a 67 M who presents with multiple episodes of lower GI bleeding.He has a past medical history of hypertension; diabetes mellitus; obstructive sleep apnea and hypothyroidism who presents to the emergency department with bright red blood per rectum. At home patient had a large bright red blood per rectum. At the emergency department before patient was seen by hospitalist patient had additional 2 bright red blood per rectum. He described the stool as pure blood with blood clots.. Patient reports that 3 days before presentation he had left lower quadrant pain but he attributed it to his history of inguinal hernia. Patient denies any nausea and vomiting. At the emergency department patient hada low-grade fever. Of note patient reports that 1 to 2 weeks ago he had an episode of upper respiratory infection and took doxycycline and is wondering whether he might have had C. difficile. His hemoglobin at the ED went from 14-11.7. He had 1 large bloody bowel movement this morning around 830. He has not had any bowel movement since. He had a CT scan abdomen pelvis and it displayed uncomplicated acute descending colon diverticulitis. It also displayed some hazy opacities with central mesentery clustered with small lymph nodes indicating sclerosing mesenteritis. [facility] Medical History Asthma COVID-19 COVID-19 Essential hypertension Exposure to COVID-19 virus GERD (gastroesophageal reflux disease) History of skin cancer Hypothyroidism Lower GI bleeding LUKE on CPAP Tachycardia Type 2 diabetes mellitus without complication Home Medications montelukast 10 mg tablet 10 mg PO DAILY 03/21/21 [History Last Taken 12/08/22] cholecalciferol (vitamin D3) 50 mcg (2,000 unit) tablet (Vitamin D3) 2,000 unit PO DAILY 09/15/21 [History Last Taken 12/08/22] metformin 500 mg tablet 500 mg PO DAILY 09/15/21 [History Last Taken 12/08/22] albuterol sulfate 90 mcg/actuation aerosol inhaler 2 puff inhalation Q6H PRN . 06/13/22 [History Last Taken 1 Week Ago ~12/02/22] tamsulosin 0.4 mg capsule 0.4 mg PO DAILY 06/13/22 [History Last Taken 12/07/22] multivitamin 1 tab PO DAILY SUPPLEMENT 12/09/22 [History Last Taken 12/09/22] omeprazole 40 mg capsule,delayed release 40 mg PO DAILY GERD 12/09/22 [History Last Taken 12/09/22] oxymetazoline 0.05 % nasal spray (Afrin (oxymetazoline)) 2 spray intranasal Q12H. 12/09/22 [History Last Taken 12/08/22] rosuvastatin 5 mg tablet 5 mg PO QHS CHOLESTEROL 12/09/22 [History Last Taken 12/08/22] zinc acetate 25 mg (zinc) capsule 30 mg PO DAILY SUPPLEMENT 12/09/22 [History Last Taken 12/08/22] aspirin 81 mg tablet,delayed release (Adult Low Dose Aspirin) 81 mg PO DAILY 12/17/22 [History Last Taken Unknown] levothyroxine 50 mcg tablet 50 mcg PO DAILY 12/17/22 [History Last Taken Unknown] losartan 100 mg tablet 100 mg PO DAILY #90 tabs 12/23/22 [Rx Last Taken Unknown] guaifenesin 600 mg tablet, extended release 12 hr 600 mg PO BID 05/09/23 [History Last Taken Unknown] mecobalamin (vitamin B12) 500 mcg chewable tablet 500 mcg PO DAILY 05/09/23 [History Last Taken Unknown] triamcinolone acetonide 55 mcg nasal spray aerosol (Nasacort) 2 spray intranasalDAILY 05/09/23 [History Last Taken Unknown] Allergy/AdvReac Type Severity Reaction Status Date / Time amoxicillin trihydrate Allergy Rash Verified 05/09/23 19:02 [From Augmentin] potassium clavulanate Allergy Rash Verified 05/09/23 19:02 [From Augmentin] Family History Mother Breast cancer Father Heart disease Cancer Kidney Surgical History H/O hernia repair History of drainage of abscess Social History Smoking Status: Never smoker alcohol intake: never substance use type: does not use caffeine: No (Over the last 3 weeks) ROS ROS Narrative Pertinent positives and pertinent negatives as noted in HPI. All other systems were reviewed and are negative Physical Exam Const alert and no apparent distress HEENT head/scalp atraumatic and moist oral mucous membranes Resp normal respiratory effort, no retractions, no use of accessory muscles and clearto auscultation bilaterally Cardio regular rate, regular rhythm, S1 normal heart sound and S2 normal heart sound GI normal to inspection, nondistended, normoactive bowel sounds, soft to palpation,non-tender and non-distended Extremity normal to inspection and full ROM Lab / Micro Data 05/10/23 12:05 05/10/23 07:10 Labs: Laboratory Results - last 24 hr 05/09/23 19:15: Blood Type O POSITIVE, Antibody Screen NEGATIVE, Crossmatch See Detail 05/09/23 19:27: WBC 10.3, RBC 5.04, Hgb 14.7, Hct 44.5, MCV 88.3, MCH 29.2, MCHC33.0, RDW Std Deviation 45.1 H, RDW Coeff of Kam 14.0, Plt Count 329, MPV 9.2, Immature Gran % (Auto) 0.400, Neut % (Auto) 73.6 H, Lymph % (Auto) 15.6 L, [place] % (Auto) 9.5, Eos % (Auto) 0.6, Baso % (Auto) 0.3, Absolute Neuts (auto) 7.6, Absolute Lymphs (auto) 1.61, Nucleated RBC % 0, Sodium 142, Potassium 3.6, Chloride 106, Carbon Dioxide 29.0, Anion Gap 7, BUN 11, Creatinine 0.88, Estim Creat Clear Calc 104.06, Est GFR (MDRD) Af Amer 111, Est GFR (MDRD) Non-Af 92, BUN/Creatinine Ratio 12.5, Glucose 117 H, Calcium 9.1, Total Bilirubin 1.20 H, AST 13 L, ALT 26, Alkaline Phosphatase 52, Total Protein 7.3, Albumin 3.7, Globulin 3.6, Albumin/Globulin Ratio 1.0 05/09/23 23:50: POC Glucose 126 H 05/10/23 00:29: Hgb 12.2 L, Hct 38.1 L 05/10/23 06:21: POC Glucose 109 H 05/10/23 07:10: WBC 8.1, RBC 3.98 L, Hgb 11.5 L, Hct 36.8 L, MCV 92.5, MCH 28.9,MCHC 31.3 L D, RDW Std Deviation 47.8 H, RDW Coeff of Kam 13.9, Plt Count 256, MPV 9.4, Immature Gran % (Auto) 0.900, Neut % (Auto) 72.1 H, Lymph % (Auto) 15.8L, [place] % (Auto) 10.0, Eos % (Auto) 0.7, Baso % (Auto) 0.5, Absolute Neuts (auto) 5.9, Absolute Lymphs (auto) 1.29, Nucleated RBC % 0, Sodium 138, Potassium 3.9, Chloride 107, Carbon Dioxide 26.0, Anion Gap 5, BUN 11, Creatinine 0.76, Estim Creat Clear Calc 91.58, Est GFR (MDRD) Af Amer 131, Est GFR (MDRD) Non-Af 109, BUN/Creatinine Ratio 14.4, Glucose 118 H, Calcium 8.2 L, Total Bilirubin 1.10 H, AST 7 L, ALT 18, Alkaline Phosphatase 41 L, Total Protein 6.2 L, Albumin 2.8 L, Globulin 3.4, Albumin/Globulin Ratio 0.8 L 05/10/23 11:43: POC Glucose 134 H 05/10/23 12:05: Hgb 11.4 L, Hct 35.7 L Micro: Microbiology 05/09/23 20:33 Stool C. difficile DNA Amplification - Final Radiology Impression Abdomen/Pelvis CT 05/09/23 19:27 IMPRESSION: 1. Uncomplicated acute descending colonic diverticulitis. 2. 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 3. There is a colon-containing left inguinal hernia without evidence of incarceration or strangulation. Electronically Signed: Torsten Savage DO at 20:56 EDT , Assessment & Plan Assessment/Plan (1) Diverticulosis: (2) Diverticular hemorrhage: (3) Acute diverticulitis: (4) Type 2 diabetes mellitus without complication: QUALIFIERS: Diabetes mellitus shelter insulin use: without shelter use Qualified Code(s): E11.9 - Type 2 diabetes mellitus without complications (5) Essential hypertension: PLAN: Plan 67-year-old with past medical history of hypothyroidism, LUKE, hypertension, type2 diabetes who presents with left lower quadrant pain and lower GI bleeding. Acute diverticulitis in the setting of an acute diverticular bleed is not very common. The most likely scenario is that he has acute diverticulitis in the setting of ischemic colitis or segmental colitis associated with diverticulosis and the result of the colitis is the GI bleeding. I do recommend antibiotic therapy for 14 days. He should also be started on mesalamine 2.4 g/day for segmental colitis associated with diverticulosis or ischemic colitis. Recommend to check ESR, CRP. His white count is normal. Trend CBC. Started on ciprofloxacin and Flagyl in the emergency department and continued. He can have full liquid diet. No need for colonoscopy at this time. He should have a colonoscopy in approximately 8 to 12 weeks after this episode. Charges/Coding Visit Charges Inpatient E&M: 08982 Init Hosp L3 05/10/23 1640 <Electronically signed by Nadir Martines DO> Cosigner Signature (if applicable): CC: Dr. Woodrow Fox MD; Dr. Shane Contreras MD~ Signed [facility] Work Phone: 1(599) 415-577310-27-2023 Progress note Author Todd Conner [facility] May 10, 2023 1:58pm Note Date/Time May 10, 2023 7 :56am [facility] Medical Records Department [address] [place] [address] Progress Note - Hospitalist 05/10/23 0754 MR#: [id number] Acct: [id number] Name: TANI WILLIAMSON Rep #:[id number] : 1955 67 From: Todd Conner DO PCP: Dr. Shane Contreras MD Status:ADM I NO Location: [place] [id number] Reason for Visit Reason for Visit: Diagnoses Type 2 diabetes mellitus without complications (05/09/23) Essential (primary) hypertension (05/09/23) Diverticulosis of large intestine without perforation or abscess with bleeding (05/09/23) Diverticulosis of intestine, part unspecified, without perforation or abscess without bleeding (05/09/23) Diverticulitis of intestine, part unspecified, without perforation or abscess without bleeding (05/09/23) Subjective Subjective Had copious bloody stools, but this AM had greatly improved. It was bloody, but less prominent. Objective Data Objective Data Vital Signs: Vital Signs Temp Pulse Resp BP Pulse Ox O2 Del Method 36.6 C 73 18 109/79 98 Room Air 05/10/23 04:37 05/10/23 04:37 05/10/23 04:37 05/10/23 04:37 05/10/23 04:37 05/10/23 04:37 Oxygen Delivery Method Room Air Weight: 120.2 kg Body Mass Index (BMI) 31.4 Intake & Output: Intake and Output for Last 24 Hours 05/08/23 05/09/23 05/10/23 23:59 23:59 23:59 Intake Total 1000 / 1600 1821.25 / 1821.25 Balance 1000 / 1600 1821.25 / 1821.25 Lab / Micro Data 05/10/23 12:05 05/10/23 07:10 Labs: Laboratory Results - last 24 hr 05/09/23 19:15: Blood Type O POSITIVE, Antibody Screen NEGATIVE, Crossmatch See Detail 05/09/23 19:27: WBC 10.3, RBC 5.04, Hgb 14.7, Hct 44.5, MCV 88.3, MCH 29.2, MCHC33.0, RDW Std Deviation 45.1 H, RDW Coeff of Kam 14.0, Plt Count 329, MPV 9.2, Immature Gran % (Auto) 0.400, Neut % (Auto) 73.6 H, Lymph % (Auto) 15.6 L, [place] % (Auto) 9.5, Eos % (Auto) 0.6, Baso % (Auto) 0.3, Absolute Neuts (auto) 7.6, Absolute Lymphs (auto) 1.61, Nucleated RBC % 0, Sodium 142, Potassium 3.6, Chloride 106, Carbon Dioxide 29.0, Anion Gap 7, BUN 11, Creatinine 0.88, Estim Creat Clear Calc 104.06, Est GFR (MDRD) Af Amer 111, Est GFR (MDRD) Non-Af 92, BUN/Creatinine Ratio 12.5, Glucose 117 H, Calcium 9.1, Total Bilirubin 1.20 H, AST 13 L, ALT 26, Alkaline Phosphatase 52, Total Protein 7.3, Albumin 3.7, Globulin 3.6, Albumin/Globulin Ratio 1.0 10/26/23 23:50: POC Glucose 126 H 05/10/23 00:29: Hgb 12.2 L, Hct 38.1 L 05/10/23 06:21: POC Glucose 109 H 05/10/23 07:10: WBC 8.1, RBC 3.98 L, Hgb 11.5 L, Hct 36.8 L, MCV 92.5, MCH 28.9,MCHC 31.3 L D, RDW Std Deviation 47.8 H, RDW Coeff of Kam 13.9, Plt Count 256, MPV 9.4, Immature Gran % (Auto) 0.900, Neut % (Auto) 72.1 H, Lymph % (Auto) 15.8L, [place] % (Auto) 10.0, Eos % (Auto) 0.7, Baso % (Auto) 0.5, Absolute Neuts (auto) 5.9, Absolute Lymphs (auto) 1.29, Nucleated RBC % 0 Micro: Microbiology 05/09/23 20:33 Stool C. difficile DNA Amplification - Final Radiography Diagnostic Testing: Radiology Impression Abdomen/Pelvis CT 05/09/23 19:27 IMPRESSION: 1. Uncomplicated acute descending colonic diverticulitis. 2. 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 3. There is a colon-containing left inguinal hernia without evidence of incarceration or strangulation. Electronically Signed: Torsten Lesley Savage, at 20:56 EDT , Physical Exam Const alert and no apparent distress HEENT head/scalp atraumatic and moist oral mucous membranes Resp normal respiratory effort, no retractions, no use of accessory muscles and clearto auscultation bilaterally Cardio regular rate, regular rhythm, S1 normal heart sound and S2 normal heart sound GI normal to inspection, nondistended, normoactive bowel sounds, soft to palpation,non-tender and non-distended Extremity normal to inspection and full ROM Assessment & Plan Assessment/Plan (1) Acute diverticulitis: PLAN: CT showed acute uncomplicated acute descenting colonic diverticulitis Cipro and metronidazole (2) Diverticular hemorrhage: PLAN: seems to be improving. 2/2 diverticulosis Consider bleeding scan if worsens again. GI consult (3) Acute blood loss anemia: PLAN: H/H dropped from 14.7 to 11.4 Monitor No need for TF at this time. PLAN: Plan Chronic conditions: * Diabetes mellitus Blood glucose is stable. Hold home metformin in the hospital setting. Can hold on accucheck for now given stability. * Hypertension Stable. Home blood pressure medication continued. Losartan * BPH: tamsulosin * hypothyroidism: levothyroxine VTE prophylaxis: SCDs. Charges/Coding Visit Charges Inpatient E&M: 88729 Subs Hosp L2 05/10/23 6335 <Electronically signed by Todd Conner DO> Cosigner Signature (if applicable): CC: ~ Signed [facility] Work Phone: 1(762) 298-127410-27-2023 History and physical note Author Woodrow Fox [facility] May 09, 2023 10:21pm Note Date/Time May 09, 2023 9 :44pm [facility] Medical Records Department [address] [place] [id number] H&P Exam - Hospitalist 05/09/23 2142 MR#: [id number] Acct: [id number] Name: TANI WILLIAMSON Rep #:[id number] : 1955 67 From: Woodrow Fox MD PCP: Dr. 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 At home patient had a large bright red blood per rectum. At the emergency department before patientwas seen by hospitalist patient had additional 2 bright red blood per rectum. He described the stool as pure blood with blood clots.. Patient reports that 3 days before presentation he had left lower quadrant pain but he attributed it to his history of inguinal hernia. Patient denies any nausea and vomiting. At the emergency department patient hada low-grade fever. Of note patient reports that 1 to 2 weeks ago he had an episode of upper respiratory infection and took doxycycline and is wondering whether he might have had C. difficile. [facility] Medical History Asthma COVID-19 COVID-19 Essential hypertension Exposure to COVID-19 virus GERD (gastroesophageal reflux disease) History of skin cancer Hypothyroidism Lower GI bleeding LUKE on CPAP Tachycardia Type 2 diabetes mellitus without complication Home Medications montelukast 10 mg tablet 10 mg PO DAILY 03/21/21 [History Last Taken 12/08/22] cholecalciferol (vitamin D3) 50 mcg (2,000 unit) tablet (Vitamin D3) 2,000 unit PO DAILY 09/15/21 [History Last Taken 12/08/22] metformin 500 mg tablet 500 mg PO DAILY 09/15/21 [History Last Taken 12/08/22] albuterol sulfate 90 mcg/actuation aerosol inhaler 2 puff inhalation Q6H PRN . 06/13/22 [History Last Taken 1 Week Ago ~12/02/22] tamsulosin 0.4 mg capsule 0.4 mg PO DAILY 06/13/22 [History Last Taken 12/07/22] multivitamin 1 tab PO DAILY SUPPLEMENT 12/09/22 [History Last Taken 12/09/22] omeprazole 40 mg capsule,delayed release 40 mg PO DAILY GERD 12/09/22 [History Last Taken 12/09/22] oxymetazoline 0.05 % nasal spray (Afrin (oxymetazoline)) 2 spray intranasal Q12H. 12/09/22 [History Last Taken 12/08/22] rosuvastatin 5 mg tablet 5 mg PO QHS CHOLESTEROL 12/09/22 [History Last Taken 12/08/22] zinc acetate 25 mg (zinc) capsule 30 mg PO DAILY SUPPLEMENT 12/09/22 [History Last Taken 12/08/22] aspirin 81 mg tablet,delayed release (Adult Low Dose Aspirin) 81 mg PO DAILY 12/17/22 [History Last Taken Unknown] levothyroxine 50 mcg tablet 50 mcg PO DAILY 12/17/22 [History Last Taken Unknown] losartan 100 mg tablet 100 mg PO DAILY #90 tabs 12/23/22 [Rx Last Taken Unknown] guaifenesin 600 mg tablet, extended release 12 hr 600 mg PO BID 05/09/23 [History Last Taken Unknown] mecobalamin (vitamin B12) 500 mcg chewable tablet 500 mcg PO DAILY 05/09/23 [History Last Taken Unknown] triamcinolone acetonide 55 mcg nasal spray aerosol (Nasacort) 2 spray intranasalDAILY 05/09/23 [History Last Taken Unknown] Allergy/AdvReac Type Severity Reaction Status Date / Time amoxicillin trihydrate Allergy Rash Verified 05/09/23 19:02 [From Augmentin] potassium clavulanate Allergy Rash Verified 05/09/23 19:02 [From Augmentin] Family History Mother Breast cancer Father Heart disease Cancer Kidney Surgical History H/O hernia repair History of drainage of abscess Social History Smoking Status: Never smoker alcohol intake: never substance use type: does not use caffeine: No (Over the last 3 weeks) ROS ROS Narrative Pertinent positives and pertinent negatives as noted in HPI. All other systems were reviewed and are negative Vital Signs Vital Signs Vital Signs: 05/09/23 19:01 05/09/23 20:33 05/09/23 21:39 Temperature 96 F L 99.3 F H Temperature Source Temporal Pulse Rate 102 H 86 Pulse Rate [Lying] 80 Pulse Rate [Sitting (for 1 minute prior to obtaining)] 91 Pulse Rate [Standing (for 1 minute prior to obtaining)] 95 Respiratory Rate 18 14 Blood Pressure 154/89 H 134/86 H Blood Pressure [Lying] 157/104 H Blood Pressure [Sitting (for 1 minute prior to obtaining)] 145/105 H Blood Pressure [Standing (for 1 minute prior to obtaining)] 149/91 H Blood Pressure Mean 110 102 Blood Pressure Mean [Lying] 121 Blood Pressure Mean [Sitting (for 1 minute prior to obtaining)] 118 Blood Pressure Mean [Standing (for 1 minute prior to obtaining)] 110 Pulse Ox 95 92 Oxygen Delivery Method Room Air Weight Weight: 122.47 kg Body Mass Index (BMI) 32.0 Physical Exam Narrative Physical exam: General: Well-nourished, well-developed. Head: Normocephalic, atraumatic, no tenderness Eyes: Vision is grossly intact. EOMI ENT, no trauma, moist mucous membranes, no rhinorrhea Neck: Nontender, No thyromegaly. CVS: Regular rate and rhythm. S1-S2 present. No murmur, gallop or rub. Respiratory : clear to auscultation bilaterally, chest wall nontender Abdomen: Soft, nontender, nondistended, normal bowel sounds, no masses : Deferred Back: Nontender, no CVA tenderness Extremities: Nontender full range of motion, no trauma Skin: Normal color, no trauma, abrasions Neuro: Alert, oriented, cranial nerves II through XII grossly intact. Psychiatry: Normal mood. Normal affect. Not depressed. Not anxious. Results Lab / Micro Data 05/09/23 19:05/09/23 19:27 Labs: Laboratory Results - last 24 hr 05/09/23 19:27: WBC 10.3, RBC 5.04, Hgb 14.7, Hct 44.5, MCV 88.3, MCH 29.2, MCHC33.0, RDW Std Deviation 45.1 H, RDW Coeff of Kam 14.0, Plt Count 329, MPV 9.2, Immature Gran % (Auto) 0.400, Neut % (Auto) 73.6 H, Lymph % (Auto) 15.6 L, [place] % (Auto) 9.5, Eos % (Auto) 0.6, Baso % (Auto) 0.3, Absolute Neuts (auto) 7.6, Absolute Lymphs (auto) 1.61, Nucleated RBC % 0, Sodium 142, Potassium 3.6, Chloride 106, Carbon Dioxide 29.0, Anion Gap 7, BUN 11, Creatinine 0.88, Estim Creat Clear Calc 104.06, Est GFR (MDRD) Af Amer 111, Est GFR (MDRD) Non-Af 92, BUN/Creatinine Ratio 12.5, Glucose 117 H, Calcium 9.1, Total Bilirubin 1.20 H, AST 13 L, ALT 26, Alkaline Phosphatase 52, Total Protein 7.3, Albumin 3.7, Globulin 3.6, Albumin/Globulin Ratio 1.0 Radiology Impression Abdomen/Pelvis CT 05/09/23 19:27 IMPRESSION: 1. Uncomplicated acute descending colonic diverticulitis. 2. 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 3. There is a colon-containing left inguinal hernia without evidence of incarceration or strangulation. 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 There is a colon continued left inguinal hernia without evidence of incarceration or strangulation. Actual abdomen/pelvis CT was independently interpreted by myself: Agrees with the interpretation Patient with low-grade fever at the hospital. White count is normal. Trend CBC. Started on ciprofloxacin and Flagyl in the emergency department and continued. Will trend H&H. We will keep patient n.p.o. after midnight just in case his bleeding does not stop and he needs any intervention. Type and cross and hold 2 units of blood. Diabetes mellitus Blood glucose is stable. Hold home metformin in the hospital setting. Accu-Chek with correction scale insulin ordered. Hypertension Blood pressure is not within goal Home blood pressure medication continued. As needed hydralazine ordered. Trend blood pressure and adjust blood pressure medications. Time spent in the patient's overall evaluation,decision-making process, review of diagnostic data, adjustment of management, discussion with other providers, nursing and ancillary staff involved in patient's care documentation, 70 minutes. Charges/Coding Visit Charges Inpatient E&M: 48386 Init Hosp L3 05/09/232220 <Electronically signed by Woodrow Fox MD> Cosigner Signature (if applicable): CC: Dr. Woodrow Fox MD; Dr. Shane Contreras MD~ Signed [facility] Work Phone: 1(550) 540-715010-26-2023 Discharge summary Author Calvin Guzman [facility] May 09, 2023 9:57pm Note Date/Time May 09, 2023 7 :34pm [facility] Medical Records Department [address] [place] [address] Emergency Department Summary 05/09/23 MR#: [id number] Acct: [id number] Name: TANI WILLIAMSON Rep #:[id number] : 1955 67 From: Calvin Guzman MD PCP: Dr. 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 He relates history that about a month ago he was seen by a surgeon for a left inguinal hernia that he is going to haveelective surgery on. Additionally, he had come down with her upper respiratory infection and was placed on doxycycline. He completed that course of therapy. Over the last 2 to 3 days he has had left lower quadrant to mid abdominal pain on the left side. No exacerbating or alleviating factors. No fevers or chills. No nausea or vomiting. Today had a bowel movement and had bright red blood in the toilet. Who presents for evaluation. His inguinal hernias on the left and he denies any firmness to that area, erythema, or other symptoms. No chest pain, dizziness, or lightheadedness. [facility] Medical History Asthma COVID-19 COVID-19 Essential hypertension Exposure to COVID-19 virus GERD (gastroesophageal reflux disease) History of skin cancer Hypothyroidism Lower GI bleeding LUKE on CPAP Tachycardia Type 2 diabetes mellitus without complication Home Medications montelukast 10 mg tablet 10 mg PO DAILY 03/21/21 [History Last Taken 12/08/22] cholecalciferol (vitamin D3) 50 mcg (2,000 unit) tablet (Vitamin D3) 2,000 unit PO DAILY 09/15/21 [History Last Taken 12/08/22] metformin 500 mg tablet 500 mg PO DAILY 09/15/21 [History Last Taken 12/08/22] albuterol sulfate 90 mcg/actuation aerosol inhaler 2 puff inhalation Q6H PRN . 06/13/22 [History Last Taken 1 Week Ago ~12/02/22] tamsulosin 0.4 mg capsule 0.4 mg PO DAILY 06/13/22 [History Last Taken 12/07/22] multivitamin 1 tab PO DAILY SUPPLEMENT 12/09/22 [History Last Taken 12/09/22] omeprazole 40 mg capsule,delayed release 40 mg PO DAILY GERD 12/09/22 [History Last Taken 12/09/22] oxymetazoline 0.05 % nasal spray (Afrin (oxymetazoline)) 2 spray intranasal Q12H. 12/09/22 [History Last Taken 12/08/22] rosuvastatin 5 mg tablet 5 mg PO QHS CHOLESTEROL 12/09/22 [History Last Taken 12/08/22] zinc acetate 25 mg (zinc) capsule 30 mg PO DAILY SUPPLEMENT 12/09/22 [History Last Taken 12/08/22] aspirin 81 mg tablet,delayed release (Adult Low Dose Aspirin) 81 mg PO DAILY 12/17/22 [History Last Taken Unknown] levothyroxine 50 mcg tablet 50 mcg PO DAILY 12/17/22 [History Last Taken Unknown] losartan 100 mg tablet 100 mg PO DAILY #90 tabs 12/23/22 [Rx Last Taken Unknown] guaifenesin 600 mg tablet, extended release 12 hr 600 mg PO BID 05/09/23 [History Last Taken Unknown] mecobalamin (vitamin B12) 500 mcg chewable tablet 500 mcg PO DAILY 05/09/23 [History Last Taken Unknown] triamcinolone acetonide 55 mcg nasal spray aerosol (Nasacort) 2 spray intranasalDAILY 05/09/23 [History Last Taken Unknown] Allergy/AdvReac Type Severity Reaction Status Date / Time amoxicillin trihydrate Allergy Rash Verified 05/09/23 19:02 [From Augmentin] potassium clavulanate Allergy Rash Verified 05/09/23 19:02 [From Augmentin] Family History Mother Breast cancer Father Heart disease Cancer Kidney Surgical History H/O hernia repair History of drainage of abscess Social History Smoking Status: Never smoker alcohol intake: never substance use type: does not use caffeine: No (Over the last 3 weeks) ROS ROS ED ROS Narrative Constitutional: No fever, no chills. HEENT: No sore throat. No neck pain. No loss of vision. No rhinorrhea. Cardiovascular: No chest pain. No palpitations. No pedal edema. Respiratory: No cough, no shortness of breath. Abdominal: Left mid to left lower quadrant abdominal pain. No nausea. No vomiting. No diarrhea. Positive bright red blood per rectum. Genitourinary: No dysuria. No hematuria. Musculoskeletal: No myalgias. No arthralgias. Neurologic: No headaches. No dizziness. No lightheadedness. Skin: No rash. No change in color. Psychiatric: No depression. No anxiety. EXAM Physical Exam Narrative Exam Narrative: Afebrile. Vital signs noted. HEENT: Normocephalic. Atraumatic. PERRL, EOMI. Neck soft and supple. No pointtenderness or step off. Cardiovascular: Regular rate and rhythm. No murmurs, rubs, or gallops appreciated. Respiratory: No tachypnea. Lungs clear to auscultation bilaterally. Gastrointestinal: Abdomen soft, mild tenderness to palpation left mid to left lower quadrant, with normoactive bowel sounds. Left inguinal hernia noted without incarceration, no firmness or erythema. Reducible but returns immediately. No rebound or guarding. Neurological: Awake. Alert. Nonfocal, nonlateralizing. Skin: No rash. Normal color. No pallor. Musculoskeletal: No pedal edema. Full range of motion extremities. Const Vital Signs: 05/09/23 19:01 05/09/23 20:33 Temperature 96 F L Temperature Source Temporal Pulse Rate 102 H Pulse Rate [Lying] 80 Pulse Rate [Sitting (for 1 minute prior to obtaining)] 91 Pulse Rate [Standing (for 1 minute prior to obtaining)] 95 Respiratory Rate 18 Blood Pressure 154/89 H Blood Pressure [Lying] 157/104 H Blood Pressure [Sitting (for 1 minute prior to obtaining)] 145/105 H Blood Pressure [Standing (for 1 minute prior to obtaining)] 149/91 H Blood Pressure Mean 110 Blood Pressure Mean [Lying] 121 Blood Pressure Mean [Sitting (for 1 minute prior to obtaining)] 118 Blood Pressure Mean [Standing (for 1 minute prior to obtaining)] 110 Pulse Ox 95 Oxygen Delivery Method Room Air MDM MDM MDM Narrative Medical decision making narrative: Given his bright red blood per rectum, concern is for diverticulitis with diverticular bleed versus AV malformation versus internal hemorrhoid. I have lower concern for incarcerated hernia. Although he is on antibiotics, C. difficile is lower on the differential as he is not having diarrhea and is having more formed stool. CBC, CMP will be obtained along with CT imaging. Orthostatics will also be obtained. Orthostatics were reviewed and they were negative. I reviewed his laboratory work from today and WBC count normal at 10.3, hemoglobin normal at 14.7, platelet count normal at 329. Review of his CMP, sodium is 142, potassium normal at 3.6, chloride 106, BUN of 11 and creatinine 0.88, I have low suspicionfor upper GI bleeding that is brisk. Glucose is slightly elevated at 117 but hehas a normal anion gap of 7 so I am not concerned about HON K or diabetic ketoacidosis. I reviewed the CT report of the abdomen and pelvis with IV contrast which is consistent with descending colonic diverticulitis, without evidence of perforation or abscess. Patient was started on ciprofloxacin and Flagyl as he has a rash from amoxicillin. He did have another bloody bowel movement here in the emergency department. Patient's ex- states that he lives alone, given his continued suspected diverticular bleeding and diverticulitis, I discussed patient with Dr. Fox who will place him on observation. Patient is in stable condition. History & Record Review Discussion w/independent historian: Patient Additional record(s) reviewed:: Prior ED visit Lab Data Attestation: I reviewed the patient's lab results. Labs: Laboratory Results - last 24 hr 05/09/23 19:27 WBC 10.3 RBC 5.04 Hgb 14.7 Hct 44.5 MCV 88.3 MCH 29.2 MCHC 33.0 RDW Std Deviation 45.1 H RDW Coeff of Kam 14.0 Plt Count 329 MPV 9.2 Immature Gran % (Auto) 0.400 Neut % (Auto) 73.6 H Lymph % (Auto) 15.6 L [place] % (Auto) 9.5 Eos % (Auto) 0.6 Baso % (Auto) 0.3 Absolute Neuts (auto) 7.6 Absolute Lymphs (auto) 1.61 Nucleated RBC % 0 Sodium 142 Potassium 3.6 Chloride 106 Carbon Dioxide 29.0 Anion Gap 7 BUN 11 Creatinine 0.88 Estim Creat Clear Calc 104.06 Est GFR (MDRD) Af Amer 111 Est GFR (MDRD) Non-Af 92 BUN/Creatinine Ratio 12.5 Glucose 117 H Calcium 9.1 Total Bilirubin 1.20 H AST 13 L ALT 26 Alkaline Phosphatase 52 Total Protein 7.3 Albumin 3.7 Globulin 3.6 Albumin/Globulin Ratio 1.0 Radiography Diagnostic Testing: Clinical Impression(s) from Imaging Studies Abdomen/Pelvis CT 05/09/23 19:27 IMPRESSION: 1. Uncomplicated acute descending colonic diverticulitis. 2. 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 3. There is a colon-containing left inguinal hernia without evidence of incarceration or strangulation. Electronically Signed: Torsten Savage DO at 20:56 EDT , Management Discussion w/another healthcare provider: Hospitalist Discharge Plan Triage Chief Complaint: GI Bleed ED Provider: Calvin Guzman Dx/Rx/DC Orders Primary Care Provider: Shane Contreras What to do if you have Problems For any increased pain, shortness of breath, bleeding, nausea or vomiting, chestpain, or any unexpected problems, contact your Primary Care Provider. Call [facility] ([phone]) or report to the closest Emergency Room. Call 911 if necessary. 05/09/232156 <Electronically signed by Calvin Guzman MD> Cosigner Signature (if applicable): CC: Dr. Shane Contreras MD ~ Signed [facility] Work Phone: 1([phone]) 906-279810-26-2023 Discharge summary Author Calvin Guzman [facility] May 09, 2023 9:57pm Note Date/Time May 09, 2023 7 :34pm [facility] Medical Records Department [address] [place] [address] Emergency Department Summary 05/09/23 MR#: [id number] Acct: [id number] Name: TANI WILLIAMSON Rep #:[id number] : 1955 67 From: Calvin Guzman MD PCP: Dr. 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 He relates history that about a month ago he was seen by a surgeon for a left inguinal hernia that he is going to haveelective surgery on. Additionally, he had come down with her upper respiratory infection and was placed on doxycycline. He completed that course of therapy. Over the last 2 to 3 days he has had left lower quadrant to mid abdominal pain on the left side. No exacerbating or alleviating factors. No fevers or chills. No nausea or vomiting. Today had a bowel movement and had bright red blood in the toilet. Who presents for evaluation. His inguinal hernias on the left and he denies any firmness to that area, erythema, or other symptoms. No chest pain, dizziness, or lightheadedness. [facility] Medical History Asthma COVID-19 COVID-19 Essential hypertension Exposure to COVID-19 virus GERD (gastroesophageal reflux disease) History of skin cancer Hypothyroidism Lower GI bleeding LUKE on CPAP Tachycardia Type 2 diabetes mellitus without complication Home Medications montelukast 10 mg tablet 10 mg PO DAILY 03/21/21 [History Last Taken 12/08/22] cholecalciferol (vitamin D3) 50 mcg (2,000 unit) tablet (Vitamin D3) 2,000 unit PO DAILY 09/15/21 [History Last Taken 12/08/22] metformin 500 mg tablet 500 mg PO DAILY 09/15/21 [History Last Taken 12/08/22] albuterol sulfate 90 mcg/actuation aerosol inhaler 2 puff inhalation Q6H PRN . 06/13/22 [History Last Taken 1 Week Ago ~12/02/22] tamsulosin 0.4 mg capsule 0.4 mg PO DAILY 06/13/22 [History Last Taken 12/07/22] multivitamin 1 tab PO DAILY SUPPLEMENT 12/09/22 [History Last Taken 12/09/22] omeprazole 40 mg capsule,delayed release 40 mg PO DAILY GERD 12/09/22 [History Last Taken 12/09/22] oxymetazoline 0.05 % nasal spray (Afrin (oxymetazoline)) 2 spray intranasal Q12H. 12/09/22 [History Last Taken 12/08/22] rosuvastatin 5 mg tablet 5 mg PO QHS CHOLESTEROL 12/09/22 [History Last Taken 12/08/22] zinc acetate 25 mg (zinc) capsule 30 mg PO DAILY SUPPLEMENT 12/09/22 [History Last Taken 12/08/22] aspirin 81 mg tablet,delayed release (Adult Low Dose Aspirin) 81 mg PO DAILY 12/17/22 [History Last Taken Unknown] levothyroxine 50 mcg tablet 50 mcg PO DAILY 12/17/22 [History Last Taken Unknown] losartan 100 mg tablet 100 mg PO DAILY #90 tabs 12/23/22 [Rx Last Taken Unknown] guaifenesin 600 mg tablet, extended release 12 hr 600 mg PO BID 05/09/23 [History Last Taken Unknown] mecobalamin (vitamin B12) 500 mcg chewable tablet 500 mcg PO DAILY 05/09/23 [History Last Taken Unknown] triamcinolone acetonide 55 mcg nasal spray aerosol (Nasacort) 2 spray intranasalDAILY 05/09/23 [History Last Taken Unknown] Allergy/AdvReac Type Severity Reaction Status Date / Time amoxicillin trihydrate Allergy Rash Verified 05/09/23 19:02 [From Augmentin] potassium clavulanate Allergy Rash Verified 05/09/23 19:02 [From Augmentin] Family History Mother Breast cancer Father Heart disease Cancer Kidney Surgical History H/O hernia repair History of drainage of abscess Social History Smoking Status: Never smoker alcohol intake: never substance use type: does not use caffeine: No (Over the last 3 weeks) ROS ROS ED ROS Narrative Constitutional: No fever, no chills. HEENT: No sore throat. No neck pain. No loss of vision. No rhinorrhea. Cardiovascular: No chest pain. No palpitations. No pedal edema. Respiratory: No cough, no shortness of breath. Abdominal: Left mid to left lower quadrant abdominal pain. No nausea. No vomiting. No diarrhea. Positive bright red blood per rectum. Genitourinary: No dysuria. No hematuria. Musculoskeletal: No myalgias. No arthralgias. Neurologic: No headaches. No dizziness. No lightheadedness. Skin: No rash. No change in color. Psychiatric: No depression. No anxiety. EXAM Physical Exam Narrative Exam Narrative: Afebrile. Vital signs noted. HEENT: Normocephalic. Atraumatic. PERRL, EOMI. Neck soft and supple. No pointtenderness or step off. Cardiovascular: Regular rate and rhythm. No murmurs, rubs, or gallops appreciated. Respiratory: No tachypnea. Lungs clear to auscultation bilaterally. Gastrointestinal: Abdomen soft, mild tenderness to palpation left mid to left lower quadrant, with normoactive bowel sounds. Left inguinal hernia noted without incarceration, no firmness or erythema. Reducible but returns immediately. No rebound or guarding. Neurological: Awake. Alert. Nonfocal, nonlateralizing. Skin: No rash. Normal color. No pallor. Musculoskeletal: No pedal edema. Full range of motion extremities. Const Vital Signs: 05/09/23 19:01 05/09/23 20:33 Temperature 96 F L Temperature Source Temporal Pulse Rate 102 H Pulse Rate [Lying] 80 Pulse Rate [Sitting (for 1 minute prior to obtaining)] 91 Pulse Rate [Standing (for 1 minute prior to obtaining)] 95 Respiratory Rate 18 Blood Pressure 154/89 H Blood Pressure [Lying] 157/104 H Blood Pressure [Sitting (for 1 minute prior to obtaining)] 145/105 H Blood Pressure [Standing (for 1 minute prior to obtaining)] 149/91 H Blood Pressure Mean 110 Blood Pressure Mean [Lying] 121 Blood Pressure Mean [Sitting (for 1 minute prior to obtaining)] 118 Blood Pressure Mean [Standing (for 1 minute prior to obtaining)] 110 Pulse Ox 95 Oxygen Delivery Method Room Air MDM MDM MDM Narrative Medical decision making narrative: Given his bright red blood per rectum, concern is for diverticulitis with diverticular bleed versus AV malformation versus internal hemorrhoid. I have lower concern for incarcerated hernia. Although he is on antibiotics, C. difficile is lower on the differential as he is not having diarrhea and is having more formed stool. CBC, CMP will be obtained along with CT imaging. Orthostatics will also be obtained. Orthostatics were reviewed and they were negative. I reviewed his laboratory work from today and WBC count normal at 10.3, hemoglobin normal at 14.7, platelet count normal at 329. Review of his CMP, sodium is 142, potassium normal at 3.6, chloride 106, BUN of 11 and creatinine 0.88, I have low suspicionfor upper GI bleeding that is brisk. Glucose is slightly elevated at 117 but hehas a normal anion gap of 7 so I am not concerned about HON K or diabetic ketoacidosis. I reviewed the CT report of the abdomen and pelvis with IV contrast which is consistent with descending colonic diverticulitis, without evidence of perforation or abscess. Patient was started on ciprofloxacin and Flagyl as he has a rash from amoxicillin. He did have another bloody bowel movement here in the emergency department. Patient's ex- states that he lives alone, given his continued suspected diverticular bleeding and diverticulitis, I discussed patient with Dr. Fox who will place him on observation. Patient is in stable condition. History & Record Review Discussion w/independent historian: Patient Additional record(s) reviewed:: Prior ED visit Lab Data Attestation: I reviewed the patient's lab results. Labs: Laboratory Results - last 24 hr 05/09/23 19:27 WBC 10.3 RBC 5.04 Hgb 14.7 Hct 44.5 MCV 88.3 MCH 29.2 MCHC 33.0 RDW Std Deviation 45.1 H RDW Coeff of Kam 14.0 Plt Count 329 MPV 9.2 Immature Gran % (Auto) 0.400 Neut % (Auto) 73.6 H Lymph % (Auto) 15.6 L [place] % (Auto) 9.5 Eos % (Auto) 0.6 Baso % (Auto) 0.3 Absolute Neuts (auto) 7.6 Absolute Lymphs (auto) 1.61 Nucleated RBC % 0 Sodium 142 Potassium 3.6 Chloride 106 Carbon Dioxide 29.0 Anion Gap 7 BUN 11 Creatinine 0.88 Estim Creat Clear Calc 104.06 Est GFR (MDRD) Af Amer 111 Est GFR (MDRD) Non-Af 92 BUN/Creatinine Ratio 12.5 Glucose 117 H Calcium 9.1 Total Bilirubin 1.20 H AST 13 L ALT 26 Alkaline Phosphatase 52 Total Protein 7.3 Albumin 3.7 Globulin 3.6 Albumin/Globulin Ratio 1.0 Radiography Diagnostic Testing: Clinical Impression(s) from Imaging Studies Abdomen/Pelvis CT 05/09/23 19:27 IMPRESSION: 1. Uncomplicated acute descending colonic diverticulitis. 2. 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 3. There is a colon-containing left inguinal hernia without evidence of incarceration or strangulation. Electronically Signed: Torsten Savage DO at 20:56 EDT , Management Discussion w/another healthcare provider: Hospitalist Discharge Plan Triage Chief Complaint: GI Bleed ED Provider: Calvin Guzman Dx/Rx/DC Orders Primary Care Provider: Shane Contreras What to do if you have Problems For any increased pain, shortness of breath, bleeding, nausea or vomiting, chestpain, or any unexpected problems, contact your Primary Care Provider. Call [facility] ([phone]) or report to the closest Emergency Room. Call 911 if necessary. 05/09/232156 <Electronically signed by Calvin Guzman MD> Cosigner Signature (if applicable): CC: Dr. Shane Contreras MD ~ Signed [facility] Work Phone: [phone]) 451-716308-17-2023 History of Present illness Narrative* Dane Pruitt MD - 02/28/2023 12:30 PM EDT Tani Williamson is a very pleasant 67 y.o. male who has been referred by Dr Emery Estrada for evaluation of patent foramen ovale (PFO). 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 Patient presented to the ED 11/2022 [...] resp. rate 16, height 1.956 m (6' 5), weight 125.3 kg (276 lb 3.2oz), SpO2 95 %. Pulse-ox checked in clinic [...] with patient PFO present at and can befound in ~ 20-25% of the population. No contraindication for hernia surgery from a PFO standpoint. Patient will be discharged from our clinic and continue to follow with primary spares scheduler and primary care provider. * Hailey Castillo RN - 02/28/2023 12:30 PM EDT Patient Education Patient education regarding the following topic(s) was provided on 02/28/2023: overall plan of care. Those in attendance for the education included: patient. Barriers in providing the education included: none. The following methods were used in providing the education: explanation and handout. [facility] handoutsgiven included: After visit summary. The response of those in attendance was: states/identifies education topic. The following Clinical Intervention(s) occurred during today s visit: Extensive teaching provided to patient and or support team regarding overall plan of care documented [facility] this [facility]U [facility] Inst[facility]* Patient Instructions* Hailey Castillo RN - 02/28/2023 12:30 PM EDT Recommendations from Dr Pruitt at your appt today: Please continue current medications. Follow up with Dr Estrada. [facility] My chart is an option for non-urgent communication to your spares scheduler. To contact the office, please call [phone]. [facility] Instructions* Instruction Description Start Date Patient advised to follow-up with Primary Care Physician for BMI management. [facility] Work Phone: consbrb note Author Raffi Zhong [facility] Note Date/Time January 29, 2025 10:[address] [facility] Medical Records Department [address] [place] [address] Anesthesia Postop Eval I 01/29/25 1045 MR#: [id number] Acct: [id number] Name: TANI WILLIAMSON Rep #:[id number] : 1955 69 From: Raffi Zhong PCP: Dr. Shane Contreras MD Status:REG S DC Y Race: C Location: [place] [address] Anesthesia: Postop Eval I Current Vital Signs Temperature: 97 F Pulse Rate: 74 Blood Pressure: 119/52 Respiratory Rate: 16 Pulse Ox: 95 Oxygen Delivery Method: Room Air Assessment Airway patent: Yes Spontaneous unlabored respirations: Yes Mental status: Awake and Calm nausea: No Vomiting: No Anesthesia Complication: No Fluid Hydration Crystalloid volume administer (ml): 500 Total IV fluid infused: 500 Progress Note Anesthesia document: Postop Eval 1 completed: Yes 01/29/25 1046 <Electronically signed by Raffi Zhong > Date _ Raffi Bustos Signature: Date CC: ~ Signed [facility] Work Phone: Evaluation noteThere may be information available, but it has not been provided by the sender.[facility] Work Phone: Evaluation note* Diagnosis Onset Date Resolution Status Tachycardia acute Essential hypertension chron ic Tachycardia acute Essential hypertension chron ic [facility] Work Phone: Evaluation noteNo assessment information available [facility] Work Phone: Evaluation note* Diagnosis Onset Date Resolution Status COVID-19 acute [facility] Work Phone: Evaluation note* Diagnosis Onset Date Resolution Status PFO with atrial septal aneurysm acute [facility] Work Phone: Evaluation note* Diagnosis Atrial septal aneurysm- Primary Aneurysm of heart (wall) Patent foramen ovale Ostium secundum type atrial septal defect Lightheadedness Dizziness and giddiness Neuropathy Mononeuritis of unspecified site documented in this encounter [facility] Diagnosis Onset Date Resolution Status Sore throat acute Acute diverticulitis acute Diverticular hemorrhage acut e Diverticulosis acute Type 2 diabetes mellitus without complication acute Essential hypertension chron [facility] Work Phone: Evaluation note* Diagnosis Onset Date Resolution Status Sore throat acute Acute blood loss anemia acut e Acute diverticulitis acute Diverticular hemorrhage acut e Diverticulosis acute Type 2 diabetes mellitus without complication acute Essential hypertension chron [facility] Work Phone: Evaluation note* Diagnosis Onset Date Resolution Status Sore throat acute Acute blood loss anemia reso lved Acute diverticulitis resolve d Diverticular hemorrhage reso lved Diverticulosis resolved [facility] Work Phone: Evaluation note* Diagnosis Onset Date Resolution Status Sore throat acute Acute blood loss anemia reso lved Acute diverticulitis resolve d Diverticular hemorrhage reso lved Diverticulosis resolved Diverticulitis acute Lower GI bleeding acute Recurrent left inguinal hernia acute [facility] Work Phone: Evaluation note* Diagnosis Onset Date Resolution Status Diverticulitis acute Lower GI bleeding acute Recurrent left inguinal hernia acute Diverticulitis acute Recurrent left inguinal hernia acute Diverticulosis chronic Recurrent left inguinal hernia acute Abscess of right thigh acute [facility] Work Phone: Evaluation note* Diagnosis Onset Date Resolution Status Admit Date Diverticulitis acute November 27, 2024 3:21pm [facility] Work Phone: History and physical note Author Woodrow Fox [facility] May 09, 2023 10:21pm Note Date/Time May 09, 2023 9 :44pm [facility] Medical Records Department [address] [place] [address] H&P Exam - Hospitalist 05/09/232141 MR#: [id number] Acct: [id number] Name: TANI WILLIAMSON Rep #:[id number] : 1955 67 From: Woodrow Fox MD PCP: Dr. 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 At home patient had a large bright red blood per rectum. At the emergency department before patientwas seen by hospitalist patient had additional 2 bright red blood per rectum. He described the stool as pure blood with blood clots.. Patient reports that 3 days before presentation he had left lower quadrant pain but he attributed it to his history of inguinal hernia. Patient denies any nausea and vomiting. At the emergency department patient hada low-grade fever. Of note patient reports that 1 to 2 weeks ago he had an episode of upper respiratory infection and took doxycycline and is wondering whether he might have had C. difficile. [facility] Medical History Asthma COVID-19 COVID-19 Essential hypertension Exposure to COVID-19 virus GERD (gastroesophageal reflux disease) History of skin cancer Hypothyroidism Lower GI bleeding LUKE on CPAP Tachycardia Type 2 diabetes mellitus without complication Home Medications montelukast 10 mg tablet 10 mg PO DAILY 03/21/21 [History Last Taken 12/08/22] cholecalciferol (vitamin D3) 50 mcg (2,000 unit) tablet (Vitamin D3) 2,000 unit PO DAILY 09/15/21 [History Last Taken 12/08/22] metformin 500 mg tablet 500 mg PO DAILY 09/15/21 [History Last Taken 12/08/22] albuterol sulfate 90 mcg/actuation aerosol inhaler 2 puff inhalation Q6H PRN . 06/13/22 [History Last Taken 1 Week Ago ~12/02/22] tamsulosin 0.4 mg capsule 0.4 mg PO DAILY 06/13/22 [History Last Taken 12/07/22] multivitamin 1 tab PO DAILY SUPPLEMENT 12/09/22 [History Last Taken 12/09/22] omeprazole 40 mg capsule,delayed release 40 mg PO DAILY GERD 12/09/22 [History Last Taken 12/09/22] oxymetazoline 0.05 % nasal spray (Afrin (oxymetazoline)) 2 spray intranasal Q12H. 12/09/22 [History Last Taken 12/08/22] rosuvastatin 5 mg tablet 5 mg PO QHS CHOLESTEROL 12/09/22 [History Last Taken 12/08/22] zinc acetate 25 mg (zinc) capsule 30 mg PO DAILY SUPPLEMENT 12/09/22 [History Last Taken 12/08/22] aspirin 81 mg tablet,delayed release (Adult Low Dose Aspirin) 81 mg PO DAILY 12/17/22 [History Last Taken Unknown] levothyroxine 50 mcg tablet 50 mcg PO DAILY 12/17/22 [History Last Taken Unknown] losartan 100 mg tablet 100 mg PO DAILY #90 tabs 12/23/22 [Rx Last Taken Unknown] guaifenesin 600 mg tablet, extended release 12 hr 600 mg PO BID 05/09/23 [History Last Taken Unknown] mecobalamin (vitamin B12) 500 mcg chewable tablet 500 mcg PO DAILY 05/09/23 [History Last Taken Unknown] triamcinolone acetonide 55 mcg nasal spray aerosol (Nasacort) 2 spray intranasalDAILY 05/09/23 [History Last Taken Unknown] Allergy/AdvReac Type Severity Reaction Status Date / Time amoxicillin trihydrate Allergy Rash Verified 05/09/23 19:02 [From Augmentin] potassium clavulanate Allergy Rash Verified 05/09/23 19:02 [From Augmentin] Family History Mother Breast cancer Father Heart disease Cancer Kidney Surgical History H/O hernia repair History of drainage of abscess Social History Smoking Status: Never smoker alcohol intake: never substance use type: does not use caffeine: No (Over the last 3 weeks) ROS ROS Narrative Pertinent positives and pertinent negatives as noted in HPI. All other systems were reviewed and are negative Vital Signs Vital Signs Vital Signs: 05/09/23 19:01 05/09/23 20:33 05/09/23 21:39 Temperature 96 F L 99.3 F H Temperature Source Temporal Pulse Rate 102 H 86 Pulse Rate [Lying] 80 Pulse Rate [Sitting (for 1 minute prior to obtaining)] 91 Pulse Rate [Standing (for 1 minute prior to obtaining)] 95 Respiratory Rate 18 14 Blood Pressure 154/89 H 134/86 H Blood Pressure [Lying] 157/104 H Blood Pressure [Sitting (for 1 minute prior to obtaining)] 145/105 H Blood Pressure [Standing (for 1 minute prior to obtaining)] 149/91 H Blood Pressure Mean 110 102 Blood Pressure Mean [Lying] 121 Blood Pressure Mean [Sitting (for 1 minute prior to obtaining)] 118 Blood Pressure Mean [Standing (for 1 minute prior to obtaining)] 110 Pulse Ox 95 92 Oxygen Delivery Method Room Air Weight Weight: 122.47 kg Body Mass Index (BMI) 32.0 Physical Exam Narrative Physical exam: General: Well-nourished, well-developed. Head: Normocephalic, atraumatic, no tenderness Eyes: Vision is grossly intact. EOMI ENT, no trauma, moist mucous membranes, no rhinorrhea Neck: Nontender, No thyromegaly. CVS: Regular rate and rhythm. S1-S2 present. No murmur, gallop or rub. Respiratory : clear to auscultation bilaterally, chest wall nontender Abdomen: Soft, nontender, nondistended, normal bowel sounds, no masses : Deferred Back: Nontender, no CVA tenderness Extremities: Nontender full range of motion, no trauma Skin: Normal color, no trauma, abrasions Neuro: Alert, oriented, cranial nerves II through XII grossly intact. Psychiatry: Normal mood. Normal affect. Not depressed. Not anxious. Results Lab / Micro Data 05/09/23 19:27 05/09/23 19:27 Labs: Laboratory Results - last 24 hr 05/09/23 19:27: WBC 10.3, RBC 5.04, Hgb 14.7, Hct 44.5, MCV 88.3, MCH 29.2, MCHC33.0, RDW Std Deviation 45.1 H, RDW Coeff of Kam 14.0, Plt Count 329, MPV 9.2, Immature Gran % (Auto) 0.400, Neut % (Auto) 73.6 H, Lymph % (Auto) 15.6 L, [place] % (Auto) 9.5, Eos % (Auto) 0.6, Baso % (Auto) 0.3, Absolute Neuts (auto) 7.6, Absolute Lymphs (auto) 1.61, Nucleated RBC % 0, Sodium 142, Potassium 3.6, Chloride 106, Carbon Dioxide 29.0, Anion Gap 7, BUN 11, Creatinine 0.88, Estim Creat Clear Calc 104.06, Est GFR (MDRD) Af Amer 111, Est GFR (MDRD) Non-Af 92, BUN/Creatinine Ratio 12.5, Glucose 117 H, Calcium 9.1, Total Bilirubin 1.20 H, AST 13 L, ALT 26, Alkaline Phosphatase 52, Total Protein 7.3, Albumin 3.7, Globulin 3.6, Albumin/Globulin Ratio 1.0 Radiology Impression Abdomen/Pelvis CT 05/09/23 19:27 IMPRESSION: 1. Uncomplicated acute descending colonic diverticulitis. 2. 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 3. There is a colon-containing left inguinal hernia without evidence of incarceration or strangulation. Electronically Signed: Torsten Savage DO at 20:56 EDT , Assessment & Plan Assessment/Plan (1) Diverticulosis: (2) Diverticular hemorrhage: (3) Acute diverticulitis: (4) Type 2 diabetes mellitus without complication: QUALIFIERS: Diabetes mellitus shelter insulin use: without shelter use Qualified Code(s): E11.9 - Type 2 diabetes mellitus without complications (5) Essential hypertension: PLAN: Plan Diverticulitis with diverticular bleed Impression of abdomen/pelvis CT by radiologist: Uncomplicated acute descending colonic diverticulitis. 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 There is a colon continued left inguinal hernia without evidence of incarceration or strangulation. Actual abdomen/pelvis CT was independently interpreted by myself: Agrees with the interpretation Patient with low-grade fever at the hospital. White count is normal. Trend CBC. Started on ciprofloxacin and Flagyl in the emergency department and continued. Will trend H&H. We will keep patient n.p.o. after midnight just in case his bleeding does not stop and he needs any intervention. Type and cross and hold 2 units of blood. Diabetes mellitus Blood glucose is stable. Hold home metformin in the hospital setting. Accu-Chek with correction scale insulin ordered. Hypertension Blood pressure is not within goal Home blood pressure medication continued. As needed hydralazine ordered. Trend blood pressure and adjust blood pressure medications. Time spent in the patient's overall evaluation,decision-making process, review of diagnostic data, adjustment of management, discussion with other providers, nursing and ancillary staff involved in patient's care documentation, 70 minutes. Charges/Coding Visit Charges Inpatient E&M: 21750 Init Hosp L3 05/09/232220 <Electronically signed by Woodrow Fox MD> Cosigner Signature (if applicable): CC: Dr. Woodrow Fox MD; Dr. Shane Contreras MD~ Signed [facility] Work Phone: History and physical note Author Nadir Martines [facility] Note Date/Time January 29, 2025 10:0 9am [facility] Medical Records Department [address] [place] [address] History & Physical Exam 01/29/25 1007 MR#: [id number] Acct: [id number] Name: TANI WILLIAMSON Rep #:[id number] : 1955 69 From: Nadir Martines DO PCP: Dr. Shane Contreras MD Status:[facility] Location: [place] [address] HPI - General General Date of Admission: 01/29/25 Date of Service: 01/29/25 Chief Complaint: Diverticulitis HPI Narrative TANI WILLIAMSON, is a 69 M who presents with a chief Complaint: Diverticulitis Pt reports hx diverticulitis. Had an episode that started last weekend with LLQabd pain. Treated with Cipro, Flagyl and a clear liquid diet for 4 days. Sx haveimproved. No longer having pain but feels lousy. Has moved to a soft diet. Pt states last episode before this was a year and a half ago. Last colonoscopy was 06/[address] Gerber. Has follow up questions. [facility] Medical History Indwelling urethral catheter present Diabetes Wears glasses Wears contact lenses Cancer Anxiety Back pain Dietary restriction CPAP (continuous positive airway pressure) dependence Non-smoker History of echocardiogram History of stress test Cardiology follow-up encounter PFO (patent foramen ovale) Diverticulitis PFO with atrial septal aneurysm History of skin cancer Hypothyroidism Essential hypertension Asthma Exposure to COVID-19 virus Home Medications ?Medication ?Instructions ?Recorded ?Last Taken ?Type montelukast 10 mg tablet 10 mg PO QHS 03/21/21 History cholecalciferol (vitamin D3) 50 2,000 unit PO DAILY 01/28/25 History mcg (2,000 unit) tablet (Vitamin D3) metformin 500 mg tablet 500 mg PO QHS 09/15/2101/28 History tamsulosin 0.4 mg capsule 0.4 mg PO QHS 06/13/2201/28 History multivitamin 1 tab PO DAILY SUPPLEMENT 01/28/25 History zinc acetate 25 mg (zinc) capsule 30 mg PO DAILY SUPPL EMENT 12/09/22 01/28/25 History guaifenesin 600 mg tablet, 600 mg PO BID 05/09/2301/12 History extended release 12 hr fluticasone 232mcg-salmeterol 1 inh inhalation BID ast hma 05/10/23 01/28/25 History 14mcg/actuation breath act,powder sensor levothyroxine 75 mcg capsule 75 mcg PO DAILY 06/20/23 01/28/25 History losartan 100 mg tablet 100 mg PO QHS 06/20/2301/28 History aspirin 81 mg capsule 81 mg PO DAILY 09/11/2301/12 History atorvastatin 10 mg tablet (Lipitor) 10 mg PO QDAY 11/1201/28/25 History albuterol sulfate 90 mcg/actuation 2 puff inhalation Q 4H PRN PRN 01/27/25 01/28/25 History aerosol inhaler wheezing Allergy/AdvReac Type Severity Reaction Status Date / Time amoxicillin trihydrate (From Allergy Rash Verified 01/29/25 08:43 Augmentin) potassium clavulanate (From Allergy Rash Verified 01/29/25 08:43 Augmentin) Family History Mother Breast cancer Father Heart disease Cancer Kidney Surgical History S/P left inguinal hernia repair History of colonoscopy (~06/2023) History of esophagogastroduodenoscopy (EGD) History of hemorrhoidectomy History of orchiectomy, unilateral History of drainage of abscess H/O hernia repair Social History Smoking Status: Never smoker alcohol intake: never substance use type: does not use caffeine: No (Over the last 3 weeks) ROS Constitutional Constitutional: Denies fatigue, fever(s), poor appetite, weight gain or weight loss Gastrointestinal Gastrointestinal: Denies belching, bloating, change in bowel habits, change in stool character, chewing difficulty, coffee ground emesis, constipation, cramping, diarrhea, dyspepsia, dysphagia, early satiety, excessive flatus, fecalincontinence, heartburn, hematemesis, hematochezia, hemorrhoids, loose stools, melena, nausea, odynophagia, rectal bleeding, tenesmus, vomiting or weight changes Vital Signs Vital Signs Vital Signs: 01/29/25 08:46 01/29/25 08:46 01/29/25 09:51 Temperature 98.3 F 98.3 F Temperature Source Temporal Pulse Rate 86 86 Respiratory Rate 18 18 Respiratory Pattern Normal Blood Pressure 140/75 H 140/75 H Blood Pressure Mean 96 Blood Pressure Source Monitor Blood Pressure Position Semi-Fowlers Blood Pressure Location Right Arm Pulse Ox 93 93 Oxygen Delivery Method Room Air Room Air Weight Weight: 287 lb 11.252 oz Body Mass Index (BMI) 34.1 Physical Exam Const alert, oriented x3, no apparent distress and healthy appearing General Appearance: cooperative GI normal to inspection, nondistended, normoactive bowel sounds, soft to palpation,non-tender and non-distended Percussion: normal to percussion Rectal Exam: deferred Results Lab / Micro Data Labs: Laboratory Results - last 24 hr 01/29/25 08:53: POC Glucose 142 H Assessment & Plan Assessment/Plan (1) Diverticulosis: QUALIFIERS: Diverticulosis site: diverticulosis of large intestine Diverticulosis bleeding: diverticulosis with bleeding Qualified Code(s): K57.31 - Diverticulosis of large intestine without perforation or abscess with bleeding (2) Diverticulitis: PLAN: Assessment and Plan Assessment and Plan (1) Diverticulitis: Status: Acute Plan: Patient notes he has a history of acute diverticulitis and GI bleed which he wastreated for A few years ago. He was concerned that he may have a recurrent episode of diverticulitis. He has been having left lower quadrant pain and put himself on ciprofloxacin and Flagyl. He also put himself on a clear liquid diet. He has progressed to a soft diet. He still has some antibiotics to finish his 14 days of therapy. Patient denies fever. The patient states that 6 weeks ago he had some vague left abdominal pain. I saw him for abdominal pain in the hospital. At that time he presented to the emergency room was admitted placed on IV Cipro metronidazole for 48 hours then home on the same and the bleeding had stopped and he was coming back to feeling normal. CT scan suggested some possible mesenteritis or sclerosing mesenteritis. He was discharged on mesalamine 2.5 mg orally twice daily. He hasnot fevers chills sweats nausea vomiting no recurrent bright red blood per rectum or melena he is having some tenesmus however. Has not had any weight loss that he notes. He is feeling a lot better. I told him we would have to get a colonoscopy 4 to 6 weeks after he is finished antibiotics and he was okay with that plan. 1. AGA suggests that antibiotics should be used selectively, rather than routinely, in patients with acute uncomplicated diverticulitis. 2. AGA suggests that colonoscopy be performed after resolution of acute diverticulitis in appropriate candidates to exclude the misdiagnosis of a colonic neoplasm if a high-quality examination of the colon has not been recently performed. 3. AGA suggests against elective colonic resection in patients with an initial episode of acute uncomplicated diverticulitis. The decision to perform elective prophylactic colonic resection in this setting should be individualized. 4. AGA suggests a fiber-rich diet or fiber supplementation in patients with a history of acute diverticulitis. 5. AGA suggests against routinely advising patients with a history of diverticulitis to avoid consumption of seeds, nuts and popcorn. 6. AGA suggests against routinely advising patients with a history of diverticulitis to avoid the use of aspirin. 7. AGA suggests advising patients with a history of diverticulitis to avoid the use of nonaspirin NSAIDs if possible. 8. AGA recommends against the use of mesalamine after acute uncomplicated diverticulitis. 9. AGA suggests against the use of rifaximin after acute uncomplicated diverticulitis. 10. AGA suggests against the use of probiotics after acute uncomplicated diverticulitis. 11. AGA suggests advising patients with diverticular disease to consider vigorous physical activity. 01/29/25 1009 <Electronically signed by Nadir Martines DO> Cosigner Signature (if applicable): CC: Dr. Shane Contreras MD; Nadir Martines DO~ Signed [facility] Work Phone: Hospital Discharge instructions Additional Instructions Please contact your PCP to have a stress test and echo done ARA. If you have new or worsening symptoms prior to that come back to the ER. [facility] Work Phone: Instructions* Instruction Description Start Date Patient advised to follow-up with Primary Care Physician for BMI management. [facility] Work Phone: Instructions* Instruction Description Start Date Patient advised to follow-up with Primary Care Physician for BMI management. [facility] Work Phone: Instructions* Instruction Description Start Date Patient advised to follow-up with Primary Care Physician for BMI management. [facility] Work Phone: Reason for referral (narrative)No reason for referral information [facility] Work Phone: Summary Purpose Family History No Family History Records Found Relationship Condition Age at Onset Recorded Date/T elpidio mother Malignant neoplasm of breast Unknown father Cardiac disease Unknown Malignant neoplasm Unknown Advance Directives No Advanced Directives Records Found Advance Directive Response Recorded Date/ Time Living Will No August 31 12:21pm Power of Cvir Tech No August 31, 2021 12:21pm Advance Directive Response Recorded Date/ Time Living Will No August 31 11:21am Power of Cvir Tech No August 31, 2021 11:21am Advance Directive Response Recorded Date/ Time Living Will No December 09, 2022 4 :04pm Power of Cvir Tech No December 09, 2022 4:04pm Advance Directive Response Recorded Date/ Time Living Will No May 09 7:27pm Power of Cvir Tech No May 09, 2023 7:27pm Advance Directive Response Recorded Date/ Time Name of Medical Power of Cvir Tech Kalani Williamson May 09, 2023 10:41pm Living Will Yes May 09 10:41pm Power of Cvir Tech Yes May 09, 2023 10:41pm Advance Directive Response Recorded Date/ Time Name of Medical Power of Cvir Tech Kalani Williamson May 09, 2023 9:41pm Living Will Yes May 09 9:41pm Power of Cvir Tech Yes May 09, 2023 9:41pm Advance Directive Response Recorded Date/ Time Name of Medical Power of Cvir Tech Kalani Williamson May 09, 2023 9:41pm Name of Medical Power of Cvir Tech EX June 20, 2023 3:00pm Living Will Yes June 20 3:00pm Power of Cvir Tech Yes June 20, 2023 3:00pm Advance Directive Response Recorded Date/ Time Name of Medical Power of Cvir Tech EX June 20, 2023 3:00pm Name of Medical Power of Cvir Tech abbie zimmerman September 09, 2023 8:43pm Name of Medical Power of Cvir Tech EX September 11, 2023 10:50am Living Will Yes September 11, 024 10:50am Power of Cvir Tech Yes September 11, 2023 10:50am Advance Directive Response Recorded Date/ Time Do you have a Healthcare Power of Cvir Tech? No January 27, 2025 12:10pm Chief Complaint Chief Complaint Description Start Date [...] by the author as of Chief Complaint and Reason for Visit Chief Complaint ABD PAIN IRREGULAR HB, HTN (PER NN) TACHYCARDIA PER NN Reason for Visit Tachycardia Essential hypertension Tachycardia Essential hypertension Chief Complaint COUGH Chief Complaint Cough SORE THROAT/COUGH/CONGESTION FINGER XRAY AND LAB - THUMB PAIN Reason for Visit COVID-19 Chief Complaint SORE THROAT/COUGH/CO NGESTION FINGER XRAY AND LAB - THUMB PAIN Reason for Visit COVID-19 Chief Complaint SOB Chief Complaint SOB DYSPNEA ECHO FU PER SKEIN SPOOLER DIZZINESS Reason for Visit PFO with atrial sept al aneurysm Chief Complaint SORE THROAT BRIGHT RED BLOOD PER RECTUM Reason for Visit Sore throat Acute diverticulitis Diverticular hemorrhage Diverticulosis Type 2 diabetes mellitus without complication Essential hypertension Chief Complaint SORE THROAT BRIGHT RED BLOOD PER RECTUM BRIGHT RED BLOOD PER RECTUM BRIGHT RED BLOOD PER RECTUM BRIGHT RED BLOOD PER RECTUM BRIGHT RED BLOOD PER RECTUM Reason for Visit Sore throat Acute blood loss anemia Acute diverticulitis Diverticular hemorrhage Diverticulosis Type 2 diabetes mellitus without complication Essential hypertension Chief Complaint SORE THROAT BRIGHT RED BLOOD PER RECTUM BRIGHT RED BLOOD PER RECTUM BRIGHT RED BLOOD PER RECTUM BRIGHT RED BLOOD PER RECTUM BRIGHT RED BLOOD PER RECTUM Reason for Visit Sore throat Acute blood loss anemia Acute diverticulitis Diverticular hemorrhage Diverticulosis Chief Complaint SORE THROAT BRIGHT RED BLOOD PER RECTUM BRIGHT RED BLOOD PER RECTUM BRIGHT RED BLOOD PER RECTUM BRIGHT RED BLOOD PER RECTUM BRIGHT RED BLOOD PER RECTUM DIVERTICULITIS Reason for Visit Sore throat Acute blood loss anemia Acute diverticulitis Diverticular hemorrhage Diverticulosis Diverticulitis Lower GI bleeding Recurrent left inguinal hernia Chief Complaint DIVERTICULITIS 1WK F/U C-Scope 06/21 ABD PAIN RECURRENT DIVERTICULITIS check thigh abscess/sx 09/15 RC Reason for Visit Diverticulitis Lower GI bleeding Recurrent left inguinal hernia Diverticulitis Recurrent left inguinal hernia Diverticulosis Recurrent left inguinal hernia Abscess of right thigh Chief Complaint Admit Date Diverticulitits November 27, 2024 3:21p m Reason for Visit Admit Date Diverticulitis November 27, 2024 3:21p m Reason for Visit Admit Date Diverticulitis November 27, 2024 3:21p m Diverticulitis January 29, 2025 8:19 am Diverticulosis January 29, 2025 8:19 am Additional Source Comments (unrecognized sect ion and content) No Status Records FoundNo Status Records FoundNo Status Records FoundNo Status Records Found INFORMATION SOURCE (unrecogn ized section and content) DATE CREATED AUTHOR 10/17/2018 [facility] ([place]) DATE CREATED AUTHOR AUTHOR'S ORGANIZ ATION 10/10/2021 [facility] DATE CREATED AUTHOR AUTHOR'S ORGANIZ ATION 03/01/2023 [facility] DATE CREATED AUTHOR AUTHOR'S ORGANIZ ATION 02/23/2025 [facility] Reason for Visit (unrecogniz ed section and [...] Patient Specialty Diagnoses / Procedures Referred By Azra vallejo Referred To Contact Cardiovascular Medicine Diagnoses Patent foramen ovale Aneurysm of heart NatalieEmery MD [address] [place] [address] [facility] [address] [place] [address] Referral ID Status Reason Start Date Expiration Date V isits Requested Visits Authorized [id number] New Request 12/18/2022 01/12/2024 1 1 Goals (unrecognized section and content) Goals may be documented in a n alternate sectionGoals may be documented in an alternate sectionGoals may be documented in an alternate sectionGoals may be documented in an alternate sectionGoals may be documented in an alternate sectionGoals may be documented in an alternate sectionGoals may be documented in an alternate sectionGoals may be documented in an alternate sectionGoals may be documented in an alternate sectionGoals may be documented in an alternate sectionGoals may be documented in an alternate sectionGoals may be documented in an alternate sectionGoals may be documented in an alternate sectionGoals may be documented in an alternate section Care Teams (unrecognized sec tion and content) Team Status: Active Member Role Status Dates Dr. Shane Contreras MD Family Provider Active Dr. Shaen Contreras MD Primary Care Provider Active Team Status: Inactive Member Role Status Dates Dr. Shane Contreras MD Primary Care Provider, Referring Provider Active Marilou Soler PA, PA Attending Provider Active Team Status: Inactive Member Role Status Dates Dr. Shane Contreras MD Primary Care Provi jayshree, Attending Provider, Referring Provider Active Team Status: Inactive Member Role Status Dates Dr. Shane Contreras MD Primary Care Provider Active Cindy Pacheco BAG TURNER-C Attending Provider Active Team Status: Inactive Member Role Status Dates Dr. Shane Contreras MD Primary Care Provider, Attending Provider Active Team Status: Inactive Member Role Status Dates Dr. Shane Contreras MD Primary Care Provider Active Dr. All Stephens MD Attending Provider Active Dr. Abdulkadir Blanco MD Other Provider Active Team Status: Inactive Member Role Status Dates Dr. Shane Contreras MD Primary Care Provider Active Dr. Kapil Fine DO Emergency Provider Active Team Status: Active Member Role Status Dates Dr. Shane Contreras MD Primary Care Provider Active Dr. Emery Estrada MD Attending Provider Active Team Status: Inactive Member Role Status Dates Dr. Shane Contreras MD Primary Care Provider, Referring Provider Active Dr. Emery Estrada MD Attending Provider Active Team Status: Active Member Role Status Dates Dr. Shane Contreras MD Primary Care Provider Active Dr. All Gerber MD Attending Provider Active Team Status: Inactive Member Role Status Dates Dr. Shane Contreras MD Primary Care Provider Active Dr. Kapil Fine DO Attending Provider, Emergency Pro vider Active Team Status: Active Member Role Status Dates Dr. Shane Contreras MD Primary Care Provider Active Dr. Renu Key MD Attending Provider Active Team Status: Active Member Role Status Dates Dr. Shane Contreras MD Primary Care Provider, Attending Provider Active Corporate Lawyer Relationship Specialty Start Date End Date Shane Contreras MD [address] [facility] [address] [place] [address] PCP - General Family Medicine 02/28/23 Team Status: Inactive Member Role Status Dates Dr. Shane Contreras MD Primary Care Provider, Referring Provider Active HERBIE Stokes Attending Provider Active Team Status: Active Member Role Status Dates Dr. Shane Contreras MD Primary Care Provider Active Calvin Guzman MD Emergency Provider Active Dr. Woodrow Fox MD Admit Provider, Attending Pro vider Active Team Status: Active Member Role Status Dates Dr. Shane Contreras MD Primary Care Provider Active Calvin Guzman MD Emergency Provider Active Dr. Woodrow Fox MD Admit Provider, Attending Provider, Other Provider Active Team Status: Active Member Role Status Dates Dr. Shane Contreras MD Primary Care Provider Active Calvin Guzman MD Emergency Provider Active Dr. Woodrow Fox MD Admit Provider, Other Provide r Active Dr. Todd Conner DO Attending Provider, Other Provid er Active Team Status: Active Member Role Status Dates Dr. Shane Contreras MD Primary Care Provider Active Calvin Guzman MD Emergency Provider Active Dr. Woodrow Fox MD Admit Provider, Other Provide r Active Dr. Todd Conner DO Other Provider Active Dr. Nadir Martines DO Attending Provider Active Team Status: Inactive Member Role Status Dates Dr. Shane Contreras MD Primary Care Provider Active Calvin Guzman MD Emergency Provider Active Dr. Woodrow Fox MD Admit Provider, Other Provide r Active Dr. Todd Conner DO Attending Provider Active Team Status: Inactive Member Role Status Dates Dr. Sahne Contreras MD Primary Care Provider, Referring Provider Active Dr. All Gerber MD Attending Provider Active Team Status: Active Member Role Status Dates Dr. Shane Contreras MD Primary Care Provider, Referring Provider Active Dr. All Gerber MD Attending Provider, Other Prov ider Active Team Status: Inactive Member Role Status Dates Dr. Shane Contreras MD Primary Care Provider Active Dr. All Gerber MD Attending Provider, Referring Provider Active Team Status: Inactive Member Role Status Dates Dr. Shane Contreras MD Primary Care Provider, Referring Provider Active Violet STONER PA-C Attending Provider Active Team Status: Inactive Member Role Status Dates Dr. Shane Contreras MD Primary Care Provider, Referring Provider Active Dr. Romain Fox MD Attending Provider Active Team Status: Active Member Role Status Dates Dr. Shane Contreras MD Primary Care Provider Active Dr. All Gerber MD Attending Provid er, Referring Provider, Other Provider Active Team Status: Inactive Member Role Status Dates Dr. Shane Contreras MD Primary Care Provider Active Dr. Kyleigh Olmstead MD Attending Provider, Emergency Provider Active Team Status: Inactive Member Role Status Dates Dr. Shane Contreras MD Primary Care Provider Active Start: August 24, 2024 End: August 24, 2024 Dr. Shane Contreras MD Attending Provider Active Start: August 24, 2024 End: August 24, 2024 Dr. Shane Contreras MD Referring Provider Active Start: August 24, 2024 End: August 24, 2024 Team Status: Active Member Role Status Dates Dr. Shane Contreras MD Primary Care Provider Active Start: November 26, 2024 Dr. Shane Contreras MD Attending Provider Active Start: November 26, 2024 Dr. Shane Contreras MD Referring Provider Active Start: November 26, 2024 Team Status: Inactive Member Role Status Dates Dr. Shane Contreras MD Primary Care Provider Active Start: November 27, 2024 End: November 27, 2024 Dr. Shane Contreras MD Referring Provider Active Start: November 27, 2024 End: November 27, 2024 Dr. Nadir Martines DO Attending Provider Active Start: November 27, 2024 End: November 27, 2024 Team Status: Inactive Member Role Status Dates Dr. Shane Contreras MD Primary Care Provider Active Start: November 26, 2024 End: November 26, 2024 Dr. Shane Contreras MD Attending Provider Active Start: November 26, 2024 End: November 26, 2024 Dr. Shane Contreras MD Referring Provider Active Start: November 26, 2024 End: November 26, 2024 Team Status: Active Member Role/Relationship Status Dates Dr. Shane Contreras MD Primary Care Provider Active Team Status: Inactive Member Role/Relationship Status Dates Dr. Shane Contreras MD Primary Care Provider Active Start: November 26, 2024 End: November 26, 2024 Dr. Shane Contreras MD Attending Provider Active Start: November 26, 2024 End: November 26, 2024 Dr. Shane Contreras MD Referring Provider Active Start: November 26, 2024 End: November 26, 2024 Team Status: Inactive Member Role/Relationship Status Dates Dr. Shane Contreras MD Primary Care Provider Active Start: November 27, 2024 End: November 27, 2024 Dr. Shane Contreras MD Referring Provider Active Start: November 27, 2024 End: November 27, 2024 Dr. Nadir Martines DO Attending Provider Active Start: November 27, 2024 End: November 27, 2024 Team Status: Inactive Member Role/Relationship Status Dates Dr. Shane Contreras MD Primary Care Provider Active Start: January 29, 2025 End: January 29, 2025 Dr. Shane Contreras MD Referring Provider Active Start: January 29, 2025 End: January 29, 2025 Dr. Nadir Martines DO Attending Provider Active Start: January 29, 2025 End: January 29, 2025 Team Status: Active Member Role/Relationship Status Dates Dr. Shane Contreras MD Primary Care Provider Active Start: January 29, 2025 Dr. Shane Contreras MD Referring Provider Active Start: January 29, 2025 Dr. Nadir Martines DO Attending Provider Active Start: January 29, 2025 Dr. Nadir Martines DO Other Provider Active St art: January 29, 2025 FOR RECORDS PERTAINING TO PATIENTS WHO ARE [...] BE BASED ON THE PRIMARY CLINICAL RECORDS. [employer] provides no warranty or guarantee of the accuracy or completeness of information in this document.
== END | disposition home or self-care (01) ==
LOC: LAB 10:51 → LABSPEC 10:51
PROVIDERS: PCP Family Medicine; Referring Provider Family Medicine; Visit Provider Family Medicine
DX: E11.9 Type 2 diabetes mellitus without complications (principal); E03.9 Hypothyroidism, unspecified; R10.9 Unspecified abdominal pain
CPT/HCPCS: 36415; 82043; 82570

== ENCOUNTER → 2025-02-26 | Outpatient (CLI) | payer MEDICARE, OTHER, SELFPAY ==
[2025-02-26 10:32] LABS: Hematocrit 41.9 % (40-54); Hemoglobin 13.4 g/dL (13.0-16.5); Immature Granulocytes Count 0.030 X10^3/uL (0.0-0.0); Mean Corp Hgb Conc 32.0 g/dL (32-36); Mean Corpuscular Volume 90.3 fL (80-94); Mean Platelet Vol. 10.4 fl (6.2-12.0); NRBC Flagged by Analyzer 0 % (0-5); Platelet Count 214 K/mm3 (150-450); RBC Distribution Width CV 14.2 % (11.6-14.6); RBC Distribution Width SD 46.6 fl (35.1-43.9); Red Blood Count 4.64 M/mm3 (4.6-6.2); White Blood Count 5.2 K/mm3 (4.4-11.0)
[2025-02-26 10:57] LABS: Anion Gap 11 (5-15); BUN 14 mg/dL (4-19); BUN/Creat Ratio 16.0 RATIO (10-20); Calcium,Total 9.5 mg/dL (7.6-11.0); Carbon Dioxide 26.0 mmol/L (21.0-32.0); Chloride 101 mmol/L (98-108); Free T3 3.1 pg/mL (2.18-3.98); Glucose 114 mg/dL (70-99); Potassium 4.0 mmol/L (3.3-5.1)
== END | disposition home or self-care (01) ==
LOC: MFPLAB 08:33
PROVIDERS: PCP Family Medicine; Visit Provider Family Medicine
DX: E11.9 Type 2 diabetes mellitus without complications (principal); E03.9 Hypothyroidism, unspecified; R53.83 Other fatigue
CPT/HCPCS: 36415; 80048; 84403; 84439; 84443; 84481; 85025

== ENCOUNTER → 2025-03-04 | Outpatient (CLI) | payer MEDICARE, OTHER, SELFPAY ==
--- NOTE | 2025-03-04 15:53 | CT_ITS ---
PROCEDURE: CHEST WITHOUT CONTRAST 03/04/2025 REASON FOR EXAM: MODERATE PERSISTANT ASTHMA Three-month history of cough and mucus. TECHNIQUE: Chest CT without contrast. Coronal and Sagittal reconstruction series were provided. One or more dose reduction techniques were used (e.g., Automated exposure control, adjustment of the mA and/or kV according to patient size, use of iterative reconstruction technique RADIATION DOSE SUMMARY: CTDlvol: 18.18 mGy DLP: 681.52 mGycm COMPARISON: Prior chest radiograph dated December 09, 2022. FINDINGS: Hardware: None Lymph nodes: Small benign-appearing bilateral axillary lymph nodes. Small mediastinal lymph nodes. Heart and Vasculature: The heart is not enlarged. Coronary Artery Calcifications: Present Lungs and Airways: Lungs are clear. Pleura: No evidence of pleural effusion. Upper Abdomen: Unremarkable Bones: Degenerative changes of the thoracic spine. CT/Chest without Contrast IMPRESSION: Coronary artery calcification (CAC) is is present The lungs are clear. Reading Location: [id number]
== END | disposition home or self-care (01) ==
LOC: CT 15:47
PROVIDERS: PCP Family Medicine; Referring Provider Internal Medicine Pulmonary Disease; Visit Provider Internal Medicine Pulmonary Disease
DX: J45.40 Moderate persistent asthma, uncomplicated (principal)
CPT/HCPCS: 71250

== ENCOUNTER 2025-04-05 23:19 | Emergency (ER) | payer MEDICARE, OTHER, SELFPAY ==
[2025-04-05 23:19] VITALS: BP 130/105; PULSE 113; RESP 16; TEMP 36.8; O2SAT 100; BMI 34.0
--- NOTE | 2025-04-05 23:34 | CT_ITS ---
PROCEDURE: ABDOMEN/PELVIS W IV CONT ONLY 04/06/2025 REASON FOR EXAM: LLQ PAIN TECHNIQUE: Procedure Code: [id number] Modality: CT Procedure: ABDOMEN/PELVIS W IV CONT ONLY Coronal and Sagittal reconstruction series were provided. CONTRAST: OMNIPAQUE 350 VOLUME: 100 mL One or more dose reduction techniques were used (e.g., Automated exposure control, adjustment of the mA and/or kV according to patient size, use of iterative reconstruction technique. RADIATION DOSE SUMMARY: CTDlvol: 23.44 mGy DLP: 1288 mGycm COMPARISON: CT scan on 09/09/2023. FINDINGS: Diffuse colonic diverticulosis. Minimal thickening of the proximal sigmoid/distal descending colon, probably minimal colitis/diverticulitis without perforation or abscess formation. Mild hepatic steatosis. Diffuse thickening of the stomach suggestive of gastritis. 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 Unchanged right renal simple cyst measuring 1.5 cm. Surgical changes of the left inguinal canal without acute changes. Mildly prominent left external iliac lymph nodes are noted with the largest measuring 1.2 cm, probably benign and reactive. Distended bladder. Mild prostatomegaly. Diffuse thickening of the wall of the bladder. Chronic bladder outlet obstruction versus mild cystitis. Surgical changes of the lower aspect of the anterior abdominal wall. Moderate diffuse spondylosis. The visualized lung bases are unremarkable. Normal liver. Normal gallbladder and extrahepatic biliary system. Normal spleen. Normal pancreas. Normal bilateral adrenal glands. Normal size of the right kidney. There is no right renal mass. There are no right renal calculi. There is no right hydronephrosis. Normal visualized right ureter. Normal size of the left kidney. There is no left renal mass. There are no left renal calculi. There is no left hydronephrosis. Normal visualized left ureter. Normal visualized stomach. Normal small intestine. The appendix is visualized and appears normal. There is no demonstrated peritoneal fluid. Mild atheromatous plaques of the abdominal aorta. Normal inferior vena cava. Normal retroperitoneum. There is no pelvic mass lesion or lymphadenopathy. There is no pelvic fluid. CT/Abdomen/Pelvis W IV Cont ONLY IMPRESSION: Diffuse colonic diverticulosis. Minimal thickening of the proximal sigmoid/distal descending colon, probably mi nimal colitis/diverticulitis without perforation or abscess formation. Mild hepatic steatosis. Diffuse thickening of the stomach suggestive of gastritis. 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 Unchanged right renal simple cyst measuring 1.5 cm. Surgical changes of the left inguinal canal without acute changes. Mildly prominent left external iliac lymph nodes are noted with the largest dave suring 1.2 cm, probably benign and reactive. Distended bladder. Mild prostatomegaly. Diffuse thickening of the wall of the bladder. Chronic bladder outlet obstructi on versus mild cystitis. Surgical changes of the lower aspect of the anterior abdominal wall. Reading Location: [id number]
[2025-04-05] MEDS: 0.9% Normal Saline (1000mL) 1,000 ML 999 ML IV (23:56)
[2025-04-06 00:15] LABS: Hematocrit 43.3 % (40-54); Hemoglobin 14.6 g/dL (13.0-16.5); Immature Granulocytes Count 0.100 X10^3/uL (0.0-0.0); Mean Corp Hgb Conc 33.7 g/dL (32-36); Mean Corpuscular Volume 88.2 fL (80-94); Mean Platelet Vol. 9.4 fl (6.2-12.0); NRBC Flagged by Analyzer 0 % (0-5); Platelet Count 202 K/mm3 (150-450); RBC Distribution Width CV 14.5 % (11.6-14.6); RBC Distribution Width SD 46.5 fl (35.1-43.9); Red Blood Count 4.91 M/mm3 (4.6-6.2); White Blood Count 6.2 K/mm3 (4.4-11.0)
[2025-04-06 00:32] LABS: AST(SGOT) 26 U/L (<=37); Alanine Aminotransfer ALT/SGPT 37 U/L (<=46); Albumin, Serum 4.4 g/dL (3.4-4.8); Alkaline Phosphatase 44 U/L (40-129); Anion Gap 13 (5-15); BUN 9 mg/dL (4-19); BUN/Creat Ratio 10.4 RATIO (10-20); Bilirubin, Direct 0.41 mg/dL (0.00-0.30); Calcium,Total 9.5 mg/dL (7.6-11.0); Carbon Dioxide 24.3 mmol/L (21.0-32.0); Chloride 102 mmol/L (98-108); Estimated Creatinine Clearance 119.80 ml/min (50-250); Globulin 2.5 g/dL (2.2-4.2); Glucose 109 mg/dL (70-99); Lipase 17 U/L (13-75); Potassium 3.7 mmol/L (3.3-5.1)
[2025-04-06 01:02] LABS: Color, Urine Yellow (Yellow); Glucose, Dipstick Normal (Normal); Ketone-Dipstick Negative (Negative); Leukocyte Esterase-Dipstick Negative /ul (Negative); Nitrite-Dipstick Negative (Negative); Occult Blood-Urine Negative /ul (Negative); Protein-Dipstick Negative (Negative); Specific Gravity, Urine 1.010 (1.002-1.030); Urine Bilirubin Dipstick Negative (Negative)
[2025-04-06 01:11] LABS: Mucous, Urine 0 SEEN /hpf (<or=2+); Red Blood Cells-Urine 0 SEEN /hpf (0-5); Squamous Epithelial Cells - UA 0 SEEN /hpf (0-5)
--- OUTSIDE RECORDS SUMMARY | 2025-04-06 01:17 | XMS RPT_ITS | CCD ---
Author Organization [facility] Team Providers Care Claim Adjuster Name Role Phone MARILOU FRANK Attending Unavailable [...] Contreras MD Primary Care Provider Dr. Shane Contreras MD Attending Provider Dr. Shane Contreras MD Referring Provider [phone] Friend , Dr. Schmitz Attending Provider Diane BEATTY, Dr. Lynn Primary Care Provider Diane BEATTY, Dr. Lynn Attending Provider Diane BEATTY, Dr. Lynn Referring Provider Friend , Dr. Schmitz Other Provider Angelo BEATTY, Dr. All Smith Attending Provider Angelo BEATTY, Dr. All Smith Referring Provider Diane, Shane Attending Unavailable Contreras, Shane Referring Unavailable Contreras, Shane Primary Care Unavailable Contreras, Shane Referring Unavailable Contreras, Shane Primary Care Unavailable Contreras, Shane Attending Unavailable Contreras, Shane Referring Unavailable Contreras, Shane Primary Care Unavailable Friend, Nadir Attending Unavailable Contreras, Shane Primary Care Unavailable Sibilia, All Smith Attending Unavailable Sibilia, All Smith Referring Unavailable Contreras, Shane Primary Care Unavailable Sibilia, All Smith Attending Unavailable Sibilia, All Smith Referring Unavailable Contreras, Shane Attending Unavailable Contreras, Shane Primary Care Unavailable Contreras, Shane Referring Unavailable Contreras, Shane Attending Unavailable Contreras, Shane Primary Care Unavailable Contreras, Shane Referring Unavailable Contreras, Shane Attending Unavailable Contreras, Shane Primary Care Unavailable Contreras, Shnae Referring Unavailable Contreras, Shane Primary Care Unavailable Friend, Nadir Consulting Unavailable Friend, Nadir Attending Unavailable Contreras, Shane Referring Unavailable Contreras, Shane Primary Care Unavailable Friend, Nadir Attending Unavailable Contreras, Shane Referring Unavailable Contreras, Shane Primary Care Unavailable Friend, Nadir Attending Unavailable Allergies Allergy Classification Reported Allergen(s) Allergy Type Date of Onset Reaction(s) Facility (4 sources) Amoxicillin / Clavulanate Drug Allergy 2 rash [facility] Work Phone: (20 sources) Amoxicillin; Translations: [amoxicillin trihydrate] Drug Allergy 2 [facility] (20 sources) potassium clavulanate; Translations: [potassium clavulanate] Allergy to substance 2 [facility] (1 source) Amoxicillin / Clavulanate Drug Allergy 3 Rash [facility] Medications Current Medications Medication Drug Class(es) Dates Sig (Normalized) Sig (Original) [id number] 200 actuat albuterol 0.09 mg/actuat metered dose [...] 2021 1:58pm atorvastatin 10 mg oral tablet (6 sources) HMG-CoA Reductase Inhibitor Start: 11-27-2024 take [...] once a day as needed fluticasone furoate [id number] Alexus Duecker AT 61 actuat fluticasone propionate 0.232 mg/actuat / salmeterol xinafoate 0.014 mg/actuat dry powder inhaler (1 source) Corticosteroid, beta2-Adrenergic Agonist take 1 puff(s) by inhalation twice daily Fluticasone-Salmeterol 232-14 MCG/ACT Aerosol Powder, breath activated Inhale 1 puff 2 times daily. 0 Active Fluticasone Propion-Salmetero l (10 sources) Start : 05-10 Fluticasone Propion-Salmeterol 232-14 [...] daily. 0 Active take 3 tablets by [facility] once daily GUAIFENESIN 400 MG TABS 3 tablet by mouth once a day guaifenesin [id number] Alexus CORONA levothyroxine sodium 0.075 mg oral [...] mcg on Sat/Sun take 1 capsule by [facility] once daily LEVOTHYROXINE SODIUM 50 MCG CAPS 1 capsule by mouth once a day levothyroxine [id number] Alexus CORONA losartan potassium 100 mg oral [...] hellen y METFORMIN HCL ER 500 MG [id number] 1 tablet by mouth once a day metformin [id number] Alexus Coburn AT montelukast 10 mg oral [...] Active Multivitamin (Multiple Vitamins) 1 EACH tablet (20 sources) Start: 12-29-2017 take 1 tablet by [...] tablet by mouth once a day multivitamin [id number] Alexus Coburn AT Multivitamin Tablet (6 sources) Start: 12-09-2022 Multivitamin T ablet Active [...] six hours as needed for pain oxycodone [id number] Sebastian Abbott MD oxymetazoline hydrochloride 0.5 mg/ml nasal spray (6 sources) Start: 12-09-2022 Oxymetazoline (Afrin (Oxymetazoline)) 0.05 % [place],Non-Aerosol Active 2 SPRAY INTRANASAL Q12H December 08, 2022 11:00pm Start: 12-09-2022 Oxymetazoline (Afrin (Oxymetazoline)) 0.05 % [place],Non- Aerosol Active 2 SPRAY INTRANASAL AT BEDTIME December 09, 2022 12:00am pantoprazole 20 mg delayed release oral tablet (1 source) Proton Pump Inhibitor Start: 02-04-2023 take 1 tablet by mouth once daily pantoprazole [address] tablet DR Take 1 tablet by mouth daily. 0 02/04/2023 Active polyethylene glycol 3350 740649 mg / potassium chloride 2970 mg / sodium bicarbonate 6740 mg / sodium chloride 5860 mg / sodium sulfate 82676 mg powder for oral solution (1 source) Osmotic Laxative Start: 06-20-2023 take 4000 mL by mouth once Peg 3350-Electrolytes Active 4000 ML PO ONCE 4000 June 20, 2023 12:00am until fecal effluent is clear; do not exceed a total volume of 4000 mL tamsulosin hydrochloride 0.4 mg oral capsule (19 sources) alpha-Adrenergic Stacey Start: 06-13-2022 take 1 capsule by mouth at bedtime Tamsulosin 0.4 mg capsule Active 0.4 mg PO AT BEDTIME June 13, 2022 1:00am vitamin b12 0.5 mg oral tablet (1 source) Vitamin B12 take 1 tablet by mouth once daily Cyanocobalamin (B-12) 500 MCG tablet Take 1 tablet by mouth daily. 0 Active zinc acetate 25 mg oral capsule (18 sources) Start: 12-09-2022 Zinc Acetate 25 mg [...] / HYDROcodone bitartrate 5 mg oral tablet (13 sources) Opioid Agonist Start: 09-16-2023 End: 10-04-2023 [...] TABLE T PO EVERY 6 HOURS 10 3 September 16, 2023 ciprofloxacin 500 mg oral tablet (10 sources) Quinolone Antimicrobial Start: 05-11-2023 End: 06-20-2023 [...] daily while taking this antibiotic clindamycin hcl [id number] Sebastian Abbott MD 12 hr dextromethorphan hydrobromide 60 mg / guaiFENesin 1200 mg extended release oral tablet (14 sources) Uncompetitive Y-axuhpv-L-aspart ate Receptor Antagonist, Sigma-1 Agonist Start: 12-09-2022 End: 05-09-2023 take 60-1200 mg by mouth every twelve hours Dextromethorphan-Guaif enesin (Mucinex Dm) 60-1,200 mg Tablet Extended Release 12 Hr Discontinued 1 {tbl} PO DAILY December 09, 2022 12:00am May 09, 2023 8:35pm . docusate sodium 100 mg oral capsule (7 sources) Start: 09-09-2023 End: 11-27-2024 take 1 capsule by mouth twice daily Docusate Sodium (Colace) 100 mg capsule Discontinued 100 mg PO TWICE A DAY September 09, 2023 1:00am November 27, 2024 3:29pm doxycycline hyclate 100 mg oral capsule (7 sources) Tetracycline-clas s Drug Start: 09-13-2023 End: 10-04-2023 take 1 capsule by mouth twice daily Doxycycline Hyclate 100 mg capsule Discontinued 100 mg PO TWICE A DAY 10 September 13, 2023 1:00am October 04, 2023 12:19pm hydroCHLOROthiazide 25 mg oral tablet (13 sources) Thiazide Diuretic Start: 12-23-2022 End: 05-09-2023 take 1 tablet by mouth once daily Hydrochlorothiazide 25 mg tablet Discontinued 25 mg PO DAILY 90 December 23, 2022 12:00am May 09, 2023 8:37pm hydroCHLOROthiazide 12.5 mg / lisinopril 10 mg oral tablet (20 sources) Thiazide Diuretic, Angiotensin Converting Enzyme Inhibitor Start: 08-31-2021 End: 12-17-2022 Lisinopril-Hydrochloro thiazide 10-12.5 mg tablet Discontinued 1 {tbl} PO DAILY 30 August 31, 2021 1:00am December 17, 2022 1:20pm Start: 08-31-2021 End: 12-17-2022 take 1 tablet by mouth once daily Lisinopril-Hydrochlorothiazide Discontin ued 1 TABLET PO DAILY August 31, 2021 12:00am December 17, 2022 12:20pm hydrocortisone acetate 25 mg rectal suppository (20 sources) Corticosteroid Start: 12-30-2017 End: 03-18-2021 Hydrocortisone Acetate 25 MG suppository Discontinued 25 mg RECTAL TWICE A DAY December 30, 2017 12:00am March 18, 2021 8:27am BID for 4 days and then twice daily PRN rectal bleeding lisinopril 10 mg oral tablet (4 sources) Angiotensin Converting Enzyme Inhibitor take 1 tablet by mouth once daily LISINOPRIL 10 MG TABS 1 tablet by mouth once a day lisinopril [id number] Alexus Coburn AT mecobalamin (11 sources) Start: 05-09-2023 End: 01-27-2025 take 1 tablet by mouth once daily Mecobalamin (Vitamin B12) 500 mcg tablet,chewable Discontinued 500 ug PO DAILY May 09, 2023 12:00am January 27, 2025 12:07pm Start: 05-09-2023 take 1 tablet by arcenio th once daily Mecobalamin (Vitamin B12) 500 mcg [...] mesalamine 1200 mg delayed release oral tablet (10 sources) Aminosalicylate Start: 05-11-2023 End: 09-09-2023 take [...] 2023 9:01pm metroNIDAZOLE 500 mg oral tablet (10 sources) Nitroimidazole Antimicrobial Start: 05-11-2023 End: 06-20-2023 [...] 8:09am rosuvastatin calcium 5 mg oral tablet (14 sources) HMG-CoA Reductase Inhibitor Start: 12-09-2022 End: 06-20-2023 take 1 tablet by mouth at bedtime Rosuvastatin 5 mg tablet Discontinued 5 mg PO AT BEDTIME December 09, 2022 12:00am June 20, 2023 2:03pm CHOLESTEROL triamcinolone acetonide 0.055 mg/actuat metered dose nasal spray (20 sources) Corticosteroid Start: 06-20-2023 End: 01-27-2025 Triamcinolone [...] route 2 times daily. 0 Active Zinc (20 sources) Start: 03-21-2021 End: 09-14-2021 take 22 [...] Date Documented Da te Episodic/Chronic Abdominal hernia (12 sources) Recurrent left inguinal hernia; Translations: [Unilateral inguinal hernia, without obstruction or gangrene, recurrent] 06-20-2023 Episodic Abdominal pain (20 sources) Abdominal pain; Translations: [Unspecified abdominal pain] 09-08-2021 Episodic Acute posthemorrhagic anemia (13 sources) Acute posthemorrhagic anemia; Translations: [Acute posthemorrhagic anemia] 05-10-2023 Episodic Asthma (2 sources) Moderate persistent asthma, uncomplicated; Translations: [Severe persistent asthma, uncomplicated] Onset: Chronic Cardiac and circulatory congenital anomalies (18 sources) Patent foramen ovale; Translations: [Patent foramen ovale with atrial septal aneurysm] Onset: 3 12-17-2022 Chronic Cardiac dysrhythmias (20 sources) Tachycardia; Translations: [Tachycardia, unspecified] Episodic Conditions associated with dizziness or vertigo (17 sources) Dizziness; Translations: [Dizziness and giddiness] Onset: [...] Translations: [Gastrointestinal hemorrhage, unspecified] 09-14-2021 Episodic Hemorrhoids (20 sources) Hemorrhoids; Translations: [Unspecified hemorrhoids] 12-29-2017 Episodic Immunizations and screening for infectious disease (20 sources) Contact with or exposure to other [...] heart] Onset: 3 Chronic Other circulatory disease (14 sources) H/O: hypertension; Translations: [Personal history of other diseases of the circulatory system] 12-09-2022 Episodic Other lower respiratory disease (14 sources) Dyspnea on exertion; Translations: [Other forms of dyspnea] 12-09-2022 Episodic Other nervous system disorders (1 source) Neuropathy; Translations: [Polyneuropathy, unspecified] 02-28-2023 Chronic Other nutritional; endocrine; and metabolic disorders (1 source) Obese class I; Translations: [Obesity, unspecified] Onset: 3 02-28-2023 Chronic Other nutritional; endocrine; and metabolic disorders (14 sources) H/O: diabetes mellitus; Translations: [Personal history of other endocrine, nutritional and metabolic disease] 12-09-2022 Episodic Other screening for suspected conditions (not mental disorders or infectious disease) (1 source) Encounter for screening for malignant neoplasm of colon; Translations: [Encounter for screening for malignant neoplasm of colon] Onset: 5 Episodic Other upper respiratory infections (15 sources) Sore throat symptom; Translations: [Acute pharyngitis, unspecified] 04-20-2023 Episodic Residual codes; unclassified (20 sources) Obstructive sleep apnea syndrome; Translations: [Obstructive sleep apnea (adult) (pediatric)] 10-31-2021 Chronic Skin and subcutaneous tissue infections (11 sources) Paronychia; Translations: [Cellulitis, unspecified] Onset: 2 10-02-2021 Episodic Thyroid disorders (20 sources) Hypothyroidism; Translations: [Hypothyroidism, unspecified] 09-15-2021 Chronic Comment on above: ON MED Viral infection (20 sources) Disease caused by 2019-nCoV; Translations: [COVID-19] Episodic Past or Other Problems Problem Classification Problem Date Documented Da te Episodic/Chronic Unclassified (4 sources) Problem Results Test Name Value Interpretation Reference Range Facility Chest without Contraston Chest without Contrast [facility] Imaging Services [address] [place] [address] Chest without Contrast MR#: [id number] Acct: [id number] Name: TANI WILLIAMSON Rep #: [id number] : 1955 M 69 From: Arcenio navarro MD PCP: Dr. Shane Contreras MD Status: REG CLI Study: Chest without Contrast Date of Exam: 03/04/25 Exam# [id number] Ordering Dr: All Stephens MD PROCEDURE: CHEST WITHOUT CONTRAST 03/04/2025 REASON FOR EXAM: MODERATE PERSISTANT ASTHMA Three-month history of cough and mucus. TECHNIQUE: Chest CT without contrast. Coronal and Sagittal reconstruction series were provided. One or more dose reduction techniques were used (e.g., Automated exposure control, adjustment of the mA and/or kV according to patient size, use of iterative reconstruction technique RADIATION DOSE SUMMARY: CTDlvol: 18.18 mGy DLP: 681.52 mGycm COMPARISON: Prior chest radiograph dated December 09, 2022. FINDINGS: Hardware: None Lymph nodes: Small benign-appearing bilateral axillary lymph nodes. Small mediastinal lymph nodes. Heart and Vasculature: The heart is not enlarged. Coronary Artery Calcifications: Present Lungs and Airways: Lungs are clear. Pleura: No evidence of pleural effusion. Upper Abdomen: Unremarkable Bones: Degenerative changes of the thoracic spine. CT/Chest without Contrast IMPRESSION: Coronary artery calcification (CAC) is is present The lungs are clear. Reading Location: [id number] CC: Dr. Shane Contreras MD; Dr. All Stephens MD Dough Raiser: Signed Normal [facility] Absolute lymphocyte countOrd ered By: Shane Contreras on 02-26-2025 Lymphocytes Auto (Unsp spec) [#/Vol] 1.26 10*3/uL 0.83-4.51 [facility] Absolute neutrophil countOrd ered By: Shane Contreras on 02-26-2025 Neutrophils (Bld) [#/Vol] 3.2 10*3/uL 2.0-7.7 [facility] Anion gap in Serum or Plasma Ordered By: Shane Contreras on 02-26-2025 Anion gap [Moles/Vol] 11 mmol/L 11-26 [facility] Automated lymphocyte count a s percentage of total leukocytesOrdered By: Shane Contreras on 02-26-2025 Lymphocytes/100 WBC Auto (Unsp spec) 24.3 % [facility] BUN/creatinine ratioOrdered By: Shane Contreras on 02-26-2025 Urea nitrogen/Creatinine [Mass ratio] 16.0 mg/mg 05-03 [facility] Basic Metabolic Profile (BMP )on 02-26-2025 BUN/CRE 16.0 RATIO Normal 05-03 [facility] Comment on above: Performed By: #### L 100.0100, L509.3001, L506.0400, L500.2500, L501.9520, L501.60311 #### [facility] [address] [place], [address] Calcium [Mass/Vol] 9.5 mg/dL Normal 7.6-11.0 [facility] Comment on above: Performed By: #### L 100.0100, L509.3001, L506.0400, L500.2500, L501.9520, L501.04547 #### [facility] [address] [place], [address] Chloride [Moles/Vol] 101 mmol/L Normal 98-108 [facility] Comment on above: Performed By: #### L 100.0100, L509.3001, L506.0400, L500.2500, L501.9520, L501.41832 #### [facility] [address] [place], [address] CO2 [Moles/Vol] 26.0 mmol/L Normal 21.0-32.0 [facility] Comment on above: Performed By: #### L 100.0100, L509.3001, L506.0400, L500.2500, L501.9520, L501.06646 #### [facility] [address] [place], [address] Creatinine [Mass/Vol] 0.89 mg/dL Normal 0.70-1.20 [facility] Comment on above: Performed By: #### L 100.0100, L509.3001, L506.0400, L500.2500, L501.9520, L501.15660 #### [facility] [address] [place], [address] GAP 11 Normal 5-15 [facility] Comment on above: Performed By: #### L 100.0100, L509.3001, L506.0400, L500.2500, L501.9520, L501.65040 #### [facility] [address] [place], [address] GFR/1.73 sq M.predicted among non-blacks MDRD (S/P/Bld) [Vol rate/Area] 93 mL/min/{1.73_m2} Normal >60 [facility] Comment on above: Result Comment: mL/m in/1.73m2 CKD-EPI Creatinine Equation (2020) Performed By: #### L 100.0100, L509.3001, L506.0400, L500.2500, L501.9520, L501.13636 #### [facility] [address] [place], [address] Glucose [Mass/Vol] 114 mg/dL High 70-99 [facility] Comment on above: Performed By: #### L 100.0100, L509.3001, L506.0400, L500.2500, L501.9520, L501.54121 #### [facility] [address] [place], [address] Potassium [Moles/Vol] 4.0 mmol/L Normal 3.3-5.1 [facility] Comment on above: Performed By: #### L 100.0100, L509.3001, L506.0400, L500.2500, L501.9520, L501.81476 #### [facility] [address] [place], [address] Sodium [Moles/Vol] 138 mmol/L Normal 133-145 [facility] Comment on above: Performed By: #### L 100.0100, L509.3001, L506.0400, L500.2500, L501.9520, L501.92436 #### [facility] [address] [place], [address] Urea nitrogen [Mass/Vol] 14 mg/dL Normal 4-19 [facility] Comment on above: Performed By: #### L 100.0100, L509.3001, L506.0400, L500.2500, L501.9520, L501.75631 #### [facility] [address] [place], [address] Basophil percentageOrdered B y: Shane Contreras on 02-26-2025 Basophils/100 WBC (Bld) 0.6 % 0-1 [facility] CBC W/Diff, Automatedon 02-12 Absolute Lymph 1.26 X10 3/uL Normal 0.83-4.51 [facility] Comment on above: Performed By: #### L 100.0100, L509.3001, L506.0400, L500.2500, L501.9520, L501.40424 #### [facility] [address] [place], [address] Absolute Neut 3.2 X10 3/uL Normal 2.0-7.7 [facility] Comment on above: Performed By: #### L 100.0100, L509.3001, L506.0400, L500.2500, L501.9520, L501.32649 #### [facility] [address] [place], [address] Basophils/100 WBC (Bld) 0.6 % Normal 0-1 [facility] Comment on above: Performed By: #### L 100.0100, L509.3001, L506.0400, L500.2500, L501.9520, L501.01590 #### [facility] [address] [place], [address] Eosinophils/100 WBC (Bld) 2.1 % Normal 0-5 [facility] Comment on above: Performed By: #### L 100.0100, L509.3001, L506.0400, L500.2500, L501.9520, L501.18514 #### [facility] [address] [place], [address] Erythrocyte distribution width (RBC) [Ratio] 14.2 % Normal 11.6-14.6 [facility] Comment on above: Performed By: #### L 100.0100, L509.3001, L506.0400, L500.2500, L501.9520, L501.28753 #### [facility] [address] [place], [address] Hematocrit (Bld) [Volume fraction] 41.9 % Normal 40-54 [facility] Comment on above: Performed By: #### L 100.0100, L509.3001, L506.0400, L500.2500, L501.9520, L501.30014 #### [facility] [address] [place], [address] Hemoglobin (Bld) [Mass/Vol] 13.4 g/dL Normal 13.0-16.5 [facility] Comment on above: Performed By: #### L 100.0100, L509.3001, L506.0400, L500.2500, L501.9520, L501.68511 #### [facility] [address] [place], [address] IG% 0.600 Normal 0.0-0.9 [facility] Comment on above: Result Comment: IG% - Immature Granulocytes (promyelocytes, myelocytes and metamyelocytes) > 1% indicates that a LEFT SHIFT is Present. Performed By: #### L 100.0100, L509.3001, L506.0400, L500.2500, L501.9520, L501.51159 #### [facility] [address] [place], [address] Lymphocytes/100 WBC (Bld) 24.3 % Normal 19-41 [facility] Comment on above: Performed By: #### L 100.0100, L509.3001, L506.0400, L500.2500, L501.9520, L501.13850 #### [facility] [address] [place], [address] MCH (RBC) [Entitic mass] 28.9 pg Normal 27.0-32.0 [facility] Comment on above: Performed By: #### L 100.0100, L509.3001, L506.0400, L500.2500, L501.9520, L501.54961 #### [facility] [address] [place], [address] MCHC (RBC) [Mass/Vol] 32.0 g/dL Normal 32-36 [facility] Comment on above: Performed By: #### L 100.0100, L509.3001, L506.0400, L500.2500, L501.9520, L501.60056 #### [facility] [address] [place], [address] MCV (RBC) [Entitic vol] 90.3 fL Normal 80-94 [facility] Comment on above: Performed By: #### L 100.0100, L509.3001, L506.0400, L500.2500, L501.9520, L501.15932 #### [facility] [address] [place], [address] Monocytes/100 WBC (Bld) 11.0 % High 0-10 [facility] Comment on above: Performed By: #### L 100.0100, L509.3001, L506.0400, L500.2500, L501.9520, L501.03300 #### [facility] [address] [place], [address] Neutrophils/100 WBC (Bld) 61.4 % Normal 47-70 [facility] Comment on above: Performed By: #### L 100.0100, L509.3001, L506.0400, L500.2500, L501.9520, L501.06042 #### [facility] [address] [place], [address] Nucleated RBC (Bld) [#/Vol] 0 10*3/uL Normal 0-5 [facility] Comment on above: Performed By: #### L 100.0100, L509.3001, L506.0400, L500.2500, L501.9520, L501.01827 #### [facility] [address] [place], [address] Platelet mean volume (Bld) [Entitic vol] 10.4 fL Normal 6.2-12.0 [facility] Comment on above: Performed By: #### L 100.0100, L509.3001, L506.0400, L500.2500, L501.9520, L501.08192 #### [facility] [address] [place], [address] Platelets (Bld) [#/Vol] 214 10*3/uL Normal 150-450 [facility] Comment on above: Performed By: #### L 100.0100, L509.3001, L506.0400, L500.2500, L501.9520, L501.42206 #### [facility] [address] [place], [address] RBC (Bld) [#/Vol] 4.64 10*6/uL Normal 4.6-6.2 [facility] Comment on above: Performed By: #### L 100.0100, L509.3001, L506.0400, L500.2500, L501.9520, L501.79858 #### [facility] [address] [place], [address] RDW SD 46.6 fl High 35.1-43.9 [facility] Comment on above: Performed By: #### L 100.0100, L509.3001, L506.0400, L500.2500, L501.9520, L501.54537 #### [facility] [address] [place], [address] WBC (Bld) [#/Vol] 5.2 10*3/uL Normal 4.4-11.0 [facility] Comment on above: Performed By: #### L 100.0100, L509.3001, L506.0400, L500.2500, L501.9520, L501.95799 #### [facility] [address] [place], [address] Carbon dioxide, total [Moles /volume] in Central venous bloodOrdered By: Shane Contreras on 02-26-2025 CO2 [Moles/Vol] 26.0 mmol/L 21.0-32.0 [facility] Chloride assayOrdered By: Herbie Contreras on 02-26-2025 Chloride [Moles/Vol] 101 mmol/L 98-108 [facility] Eosinophil percentageOrdered By: Shane Contreras on 02-26-2025 Eosinophils/100 WBC (Bld) 2.1 % 0-5 [facility] Erythrocyte distribution wid th ratioOrdered By: Shane Contreras on 02-26-2025 Erythrocyte distribution width (RBC) [Ratio] 14.2 % 11.6-14.6 [facility] Erythrocyte distribution wid th standard deviationOrdered By: Shane Contreras on 02-26-2025 Erythrocyte distribution width (RBC) [Ratio] 46.6 fl High 35.1-43.9 [facility] Free T3on 02-26-2025 Free T3 [Mass/Vol] 3.1 pg/mL Normal 2.18-3.98 [facility] Comment on above: Performed By: #### L 502.0250, L501.9985, L501.9520, L100.0100, L501.36922, L501.2450, L500.4050, L506.0400 #### [facility] [address] [place], [address] Free [id number] By: Shane whalen on 02-26-2025 Free T3 [Mass/Vol] 3.1 pg/mL 2.18-3.98 [facility] Glomerular filtration rate ( GFR) estimation/1.73 sq m using serum, plasma, or whole bOrdered By: Shane Contreras on 02-26-2025 GFR/1.73 sq M.predicted among non-blacks MDRD (S/P/Bld) [Vol rate/Area] 93 mL/min/{1.73_m2} >60 [facility] Comment on above: mL/min/1.73m2 CKD-EP I Creatinine Equation (2020) Hematocrit Auto (Bld) [Volum e fraction]Ordered By: Shane Contreras on 02-26-2025 Hematocrit (Bld) [Volume fraction] 41.9 % 40-54 [facility] Hemoglobin measurementOrdere d By: Shane Contreras on 02-26-2025 Hemoglobin (Bld) [Mass/Vol] 13.4 g/dL 13.0-16.5 [facility] Immature granulocytes/100 WB C Auto (Bld)Ordered By: Shane Contreras on 02-26-2025 Immature granulocytes/100 WBC (Bld) 0.600 % 0.0-0.9 [facility] Comment on above: IG% - Immature Granu locytes (promyelocytes, myelocytes and metamyelocytes) > 1% indicates that a LEFT SHIFT is Present. L509.3001on 02-26-2025 Testosterone [Mass/Vol] 56.10 ng/dL Low 300-720 [facility] Comment on above: Performed By: #### L 502.0250, L501.9985, L501.9520, L100.0100, L501.96255, L501.2450, L500.4050, L506.0400 #### [facility] [address] [place], [address] Laboratory - Chemistry and C hemistry - challengeOrdered By: Shane Contreras on 02-26-2025 Testosterone [Mass/Vol] 56.10 ng/dL Low 300-720 [facility] MCV (mean corpuscular volume ) determinationOrdered By: Shane Contreras on 02-26-2025 MCV (RBC) [Entitic vol] 90.3 fL 80-94 [facility] Mean corpuscular hemoglobin (MCH) determinationOrdered By: Shane Contreras on 02-26-2025 MCH (RBC) [Entitic mass] 28.9 pg 27.0-32.0 [facility] Mean corpuscular hemoglobin concentration (MCHC) determinationOrdered By: Shane Contreras on 02-26-2025 MCHC (RBC) [Mass/Vol] 32.0 g/dL 32-36 [facility] Mean platelet volume determi nationOrdered By: Shane Contreras on 02-26-2025 Platelet mean volume (Bld) [Entitic vol] 10.4 fL 6.2-12.0 [facility] Monocyte percentageOrdered B y: Shane Contreras on 02-26-2025 Monocytes/100 WBC (Bld) 11.0 % High 0-10 [facility] Neutrophil percentageOrdered By: Shane Contreras on 02-26-2025 Neutrophils/100 WBC (Bld) 61.4 % 47-70 [facility] Nucleated red blood cell per centageOrdered By: Shane Contreras on 02-26-2025 Nucleated RBC/100 WBC (Bld) [Ratio] 0 % 0-5 [facility] Platelet countOrdered By: Herbie Contreras on 02-26-2025 Platelets (Bld) [#/Vol] 214 10*3/uL 150-450 [facility] Potassium measurement (mass/ volume)Ordered By: Shane Contreras on 02-26-2025 Potassium (Unsp spec) [Mass/Vol] 4.0 mmol/L 3.3-5.1 [facility] RBC Auto (Bld) [#/Vol]Ordere d By: Shane Contreras on 02-26-2025 RBC (Bld) [#/Vol] 4.64 10*6/uL 4.6-6.2 [facility] Serum creatinine measurement (mass/volume)Ordered By: Shane Contreras on 02-26-2025 Creatinine [Mass/Vol] 0.89 mg/dL 0.70-1.20 [facility] Serum glucose measurement (m ass/volume)Ordered By: Shane Contreras on 02-26-2025 Glucose [Mass/Vol] 114 mg/dL High 70-99 [facility] Serum or plasma calcium malissa urement (mass/volume)Ordered By: Shane Contreras on 02-26-2025 Calcium [Mass/Vol] 9.5 mg/dL 7.6-11.0 [facility] Serum or plasma urea nitroge n measurement (mass/volume)Ordered By: Shane Contreras on 02-26-2025 Urea nitrogen [Mass/Vol] 14 mg/dL 4-19 [facility] Sodium levelOrdered By: Shane Contreras on 02-26-2025 Sodium [Moles/Vol] 138 mmol/L 133-145 [facility] T4 Free Directon 02-26-2025 T4 FREE DIRECT 1.30 ng/dL Normal 0.76-1.46 [facility] Comment on above: Performed By: #### L 502.0250, L501.9985, L501.9520, L100.0100, L501.76684, L501.2450, L500.4050, L506.0400 #### [facility] [address] [place], [address] T4 freeOrdered By: Shane whalen on 02-26-2025 Free T4 [Mass/Vol] 1.30 ng/dL 0.76-1.46 [facility] TSH DL <= 0.005 mIU/L QnOrde red By: Shane Contreras on 02-26-2025 TSH Qn 2.730 uIU/mL 0.300-4.20 0 [facility] Thyroid Stim Hormone (TSH)on 02-26-2025 TSH 2.730 uIU/mL Normal 0.300-4.20 0 [facility] Comment on above: Performed By: #### L 502.0250, L501.9985, L501.9520, L100.0100, L501.13552, L501.2450, L500.4050, L506.0400 #### [facility] [address] [place], [address] White blood cell (WBC) count Ordered By: Shane Contreras on 02-26-2025 WBC (Bld) [#/Vol] 5.2 10*3/uL 4.4-11.0 [facility] Microalb:Creat Ratio,Random URon 02-24-2025 Creatinine [Mass/Vol] 48.30 mg/dL Normal 39.00- 259. 00 [facility] Comment on above: Performed By: #### L 502.0250, L501.9985, L501.9520, L100.0100, L501.67299, L501.2450, L500.4050, L506.0400 #### [facility] [address] [place], [address] MALB:CREAT UNABLE TO CALCULATE Normal <30 mg/g CRE [facility] Comment on above: Performed By: #### L 502.0250, L501.9985, L501.9520, L100.0100, L501.79830, L501.2450, L500.4050, L506.0400 #### [facility] [address] [place], [address] MICROALBUMIN,UR < 12.0 Normal <20 mg/L [facility] Comment on above: Performed By: #### L 502.0250, L501.9985, L501.9520, L100.0100, L501.36966, L501.2450, L500.4050, L506.0400 #### [facility] [address] [place], [address] Microalbumin/creat ratio urO rdered By: Shane Contreras on 02-24-2025 Urine microalbumin/creatini ne ratio measurement UNABLE TO CALCULATE mg/g CRE <30 [facility] Random urine creatinine malissa urement (mass/volume)Ordered By: Shane Contreras on 02-24-2025 Creatinine Unsp time (U) [Mass/Vol] 48.30 mg/dL 39.00-259. 00 [facility] Urine albumin measurement wi th detection limit of 20 mg/L or less (mass/volume)Ordered By: Shane Contreras on 02-24-2025 Albumin DL <= 20 mg/L (U) [Mass/Vol] < 12.0 mg/L <20 mg/L [facility] Bedside Glucoseon 01-29-2025 FINGERSTICK GLU 142 mg/dL High 74-106 [facility] Comment on above: Result Comment: FRANK GALEAS OF PATIENT CARE PER NURSING PROTOCOL Performed By: #### L 502.0250, L501.9985, L501.9520, L100.0100, L501.43887, L501.2450, L500.4050, L506.0400 #### [facility] [address] [place], [address] Colonoscopy Reporton 025 Colonoscopy Report [facility] Medical Records Department [address] [place] [address] Colonoscopy Report MR#: [id number] Acct: [id number] Name: TANI WILLIAMSON Rep #: [id number] : 1955 69 From: Nadirregina Martines DO PCP: Dr. Shane Contreras MD Status:REG [facility] Patient Name: Tani Williamson Procedure Date: 01/29/2025 [...] present medications. Procedure Code(s): --- Professional --- 48860, Colonoscopy, flexible; with biopsy, single or multiple CPT copyright 2021 [employer]. All rights reserved. The codes documented in this report are preliminary and upon diet tech review may be revised to meet current compliance requirements. Nadir Martines DO 01/29/2025 10:42:20 AM This report has been signed electronically. Number of Addenda: 0 Note Initiated On: 01/29/2025 10:12 AM 01/29/25 1042 Date Nadir Martines DO Cosigner Signature: Date (if indicated) CC: Dr. Shane Contreras MD; Nadir Martines DO Date Dictated: 01/29/25 1012 Date Transcribed: Dough Raiser: TIFFANY Signed Normal [facility] Glucose measurement at [facility] deOrdered By: Nadir Martines on 01-29-2025 Glucose [Mass/Vol] 142 mg/dL High 74-106 [facility] Comment on above: MANAGEMENT OF PATIEN T CARE PER NURSING PROTOCOL MR/POSTOP.Bel 01-29-2025 MR/POSTOP.[facility] Medical Records Department [address] [place] [address] Anesthesia Postop Eval I 01/29/25 1045 MR#: [id number] Acct: [id number] Name: TANI WILLIAMSON Rep #: [id number] : 1955 69 From: Raffi Zhong PCP: Dr. Shane Contreras MD Status:[facility] Y Race: C Location: [place] [address] Anesthesia: Postop Eval I Current Vital Signs [...] Raffi Bustos Signature: Date CC: Signed Normal [facility] MR/[id number] 01-29-2025 [facility] Medical Records Department [address] [facility] [place] [address] Anesthesia Postop Eval II 01/29/25 1418 MR#: [id number] Acct: [id number] Name: TANI WILLIAMSON Rep #: [id number] : 1955 69 From: Quinten Martin CRNA PCP: Dr. Shane Contreras MD Status:[facility] Y Race: C Location: [place] Anesthesia Postop [...] Pain Level: 0 nausea: Yes Vomiting: Yes 01/29/25 1418 Date Quinten Martin CRNA Cosigner Signature: Date CC: Signed Normal [facility] MR/POSTOPAN2 [facility] Medical Records Department [address] [place] [address] Anesthesia Postop Eval II 01/29/25 1219 MR#: [id number] Acct: [id number] Name: TANI WILLIAMSON Rep #: [id number] : 1955 69 From: Luiz Dawson MD PCP: Dr. Shane Contreras MD Status:[facility] Y Race: C Location: [place] Anesthesia Postop [...] Anesthesia Complication: No 01/29/25 1220 Date Luiz Bustos Signature: Date CC: Signed Normal [facility] Surgery Specimen Level Krishan 01-29-2025 Surgery Specimen Level IV Patient Age/Sex Location Account Attending Physician TANI WILLIAMSON/M EN [id number] Nadir Martines, DO Specimen: [id number] Received: 01/29/25 Status: CHARISSA Sanford Num: [id number] Spec Type: COLON BX Subm Dr: Nadir [...] totally submitted in one cassette. / 01/29/2025 CPT:37568 Patient Age/Sex Location Account Attending Physician TANI WILLIAMSON 69/M EN [id number] Nadir Bobbi, DO Signed (signature on file) Dr. Anisa Garcia MD 02/02/25 1546 Normal [facility] Comment on above: Performed By: #### L 502.0250, L501.9985, L501.9520, L100.0100, L501.08959, L501.2450, L500.4050, L506.0400 #### [facility] [address] [place], [address] MR/PAT.ANEon 01-27-2025 MR/PAT.[facility] Medical Records Department [address] [place] [address] PAT - Anesthesia 01/27/252034 MR#: [id number] Acct: [id number] Name: TANI WILLIAMSON Rep #: [id number] : 1955 69 From: Miki Mccollum MD PCP: Dr. Shane Contreras MD Status:PRE [facility] Y Race: C Location: EN Pre-Assessment Diagnosis/Proposed Procedure Planned Operative Procedure(s): CSCOPE Anesthesia History Anesthesia History - flosser: Anesthesia History - flosser Hx Hospitalization No 01/27/25 12:10 Any Problems [...] take am of surgery PONV PONV - flosser: PONV - flosser Female No 01/27/25 12:10 HX of Motion [...] 09/16/23 14:04 Respiratory Assessment Respiratory Assessment - flosser: Respiratory Tract Infection Hx - flosser Hx Respiratory Tract Infection No 01/27/25 12:10 STOP Sleep Apnea STOP Sleep Apnea - flosser: STOP Sleep Apnea - flosser Hx Hypertension Yes: CONTROLLED WITH MED 01/27/25 [...] Tobacco Use History Tobacco Use History - flosser: Tobacco Use History - flosser Tobacco Use Smoking Status Never smoker 01/27/25 12:10 Hx Tobacco Use No 01/27/25 12:10 Years Smoking Packs Smoked per Day Smoking Cessation Date was within the last 15 years Hx Smoking Cessation Date Hx Smoking Cessation Counseling Hematologic Medial History Hematologic Hx - 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 Normal [facility] Gastroenterology Visit Repor ton 11-27-2024 Gastroenterology Visit Report [facility]astroenterology [address] [place] [address] OFFICE VISIT Date of Service: 11/27/24 MR#: [id number] Acct: [id number] Name: TANI WILLIAMSON Rep #: [id number] : 1955 Provider: Nadir Martines DO Age/Sex: 69/M Location: [facility] Status: Signed Intake Vital Signs 09/16/23 14:04 [...] Nose: externa (more content not included)... Normal [facility] Absolute lymphocyte countOrd ered By: Shane Contreras on 11-26-2024 Lymphocytes Auto (Unsp spec) [#/Vol] 1.29 10*3/uL 0.83-4.51 [facility] Absolute neutrophil countOrd ered By: Shane Contreras on 11-26-2024 Neutrophils (Bld) [#/Vol] 2.6 10*3/uL 2.0-7.7 [facility] Anion gap in Serum or Plasma Ordered By: Shane Contreras on 11-26-2024 Anion gap [Moles/Vol] 12 mmol/L - [facility] Automated lymphocyte count a s percentage of total leukocytesOrdered By: Shane Contreras on 11-26-2024 Lymphocytes/100 WBC Auto (Unsp spec) 27.6 % - [facility] BUN/creatinine ratioOrdered By: Shane Contreras on 11-26-2024 Urea nitrogen/Creatinine [Mass ratio] 14.0 mg/mg - [facility] Basophil percentageOrdered B y: Shane Contreras on 11-26-2024 Basophils/100 WBC (Bld) 0.6 % 0-1 [facility] Bilirubin, totalOrdered By: Shane Contreras on 11-26-2024 Bilirubin [Mass/Vol] 0.66 mg/dL 0.00-1.30 [facility] CBC W/Diff, Automatedon 11-12 Absolute Lymph 1.29 X10 3/uL Normal 0.83-4.51 [facility] Comment on above: Performed By: #### L 502.0250, L501.9985, L501.9520, L100.0100, L501.14909, L501.2450, L500.4050, L506.0400 #### [facility] [address] [place], [address] Absolute Neut 2.6 X10 3/uL Normal 2.0-7.7 [facility] Comment on above: Performed By: #### L 502.0250, L501.9985, L501.9520, L100.0100, L501.04723, L501.2450, L500.4050, L506.0400 #### [facility] [address] [place], [address] Basophils/100 WBC (Bld) 0.6 % Normal 0- [facility] Comment on above: Performed By: #### L 502.0250, L501.9985, L501.9520, L100.0100, L501.02297, L501.2450, L500.4050, L506.0400 #### [facility] [address] [place], [address] Eosinophils/100 WBC (Bld) 1.3 % Normal 0-5 [facility] Comment on above: Performed By: #### L 502.0250, L501.9985, L501.9520, L100.0100, L501.51452, L501.2450, L500.4050, L506.0400 #### [facility] [address] [place], [address] Erythrocyte distribution width (RBC) [Ratio] 13.6 % Normal 11.6-14.6 [facility] Comment on above: Performed By: #### L 502.0250, L501.9985, L501.9520, L100.0100, L501.40519, L501.2450, L500.4050, L506.0400 #### [facility] [address] [place], [address] Hematocrit (Bld) [Volume fraction] 41.6 % Normal 40-54 [facility] Comment on above: Performed By: #### L 502.0250, L501.9985, L501.9520, L100.0100, L501.55870, L501.2450, L500.4050, L506.0400 #### [facility] [address] [place], [address] ( Hemoglobin (Bld) [Mass/Vol] 14.0 g/dL Normal 13.0-16.5 [facility] Comment on above: Performed By: #### L 502.0250, L501.9985, L501.9520, L100.0100, L501.81524, L501.2450, L500.4050, L506.0400 #### [facility] [address] [place], [address] ( IG% 0.600 Normal 0.0-0.9 [facility] Comment on above: Result Comment: IG% - Immature Granulocytes (promyelocytes, myelocytes and metamyelocytes) > 1% indicates that a LEFT SHIFT is Present. Performed By: #### L 502.0250, L501.9985, L501.9520, L100.0100, L501.51880, L501.2450, L500.4050, L506.0400 #### [facility] [address] [place], [address] (401 Lymphocytes/100 WBC (Bld) 27.6 % Normal 19-41 [facility] Comment on above: Performed By: #### L 502.0250, L501.9985, L501.9520, L100.0100, L501.19541, L501.2450, L500.4050, L506.0400 #### [facility] [address] [place], [address] MCH (RBC) [Entitic mass] 30.1 pg Normal 27.0-32.0 [facility] Comment on above: Performed By: #### L 502.0250, L501.9985, L501.9520, L100.0100, L501.07920, L501.2450, L500.4050, L506.0400 #### [facility] [address] [place], [address] MCHC (RBC) [Mass/Vol] 33.7 g/dL Normal 32-36 [facility] Comment on above: Performed By: #### L 502.0250, L501.9985, L501.9520, L100.0100, L501.89216, L501.2450, L500.4050, L506.0400 #### [facility] [address] [place], [address] MCV (RBC) [Entitic vol] 89.5 fL Normal 80-94 [facility] Comment on above: Performed By: #### L 502.0250, L501.9985, L501.9520, L100.0100, L501.07368, L501.2450, L500.4050, L506.0400 #### [facility] [address] [place], [address] Monocytes/100 WBC (Bld) 13.5 % High 0-10 [facility] Comment on above: Performed By: #### L 502.0250, L501.9985, L501.9520, L100.0100, L501.22578, L501.2450, L500.4050, L506.0400 #### [facility] [address] [place], [address] Neutrophils/100 WBC (Bld) 56.4 % Normal 47-70 [facility] Comment on above: Performed By: #### L 502.0250, L501.9985, L501.9520, L100.0100, L501.70077, L501.2450, L500.4050, L506.0400 #### [facility] [address] [place], [address] Nucleated RBC (Bld) [#/Vol] 0 10*3/uL Normal 0-5 [facility] Comment on above: Performed By: #### L 502.0250, L501.9985, L501.9520, L100.0100, L501.07977, L501.2450, L500.4050, L506.0400 #### [facility] [address] [place], [address] Platelet mean volume (Bld) [Entitic vol] 10.1 fL Normal 6.2-12.0 [facility] Comment on above: Performed By: #### L 502.0250, L501.9985, L501.9520, L100.0100, L501.69219, L501.2450, L500.4050, L506.0400 #### [facility] [address] [place], [address] Platelets (Bld) [#/Vol] 235 10*3/uL Normal 150-450 [facility] Comment on above: Performed By: #### L 502.0250, L501.9985, L501.9520, L100.0100, L501.43552, L501.2450, L500.4050, L506.0400 #### [facility] [address] [place], [address] RBC (Bld) [#/Vol] 4.65 10*6/uL Normal 4.6-6.2 [facility] Comment on above: Performed By: #### L 502.0250, L501.9985, L501.9520, L100.0100, L501.45482, L501.2450, L500.4050, L506.0400 #### [facility] [address] [place], [place], [phone] (841) RDW SD 44.2 fl High 35.1-43.9 [facility] Comment on above: Performed By: #### L 502.0250, L501.9985, L501.9520, L100.0100, L501.23018, L501.2450, L500.4050, L506.0400 #### [facility] [address] [place], [place], [id number] (529) WBC (Bld) [#/Vol] 4.7 10*3/uL Normal 4.4-11.0 [facility] Comment on above: Performed By: #### L 502.0250, L501.9985, L501.9520, L100.0100, L501.13217, L501.2450, L500.4050, L506.0400 #### [facility] [address] [place], [address] Carbon dioxide, total [Moles /volume] in Central venous bloodOrdered By: Shane Contreras on 11-26-2024 CO2 [Moles/Vol] 23.4 mmol/L 21.0-32.0 [facility] Chloride assayOrdered By: Herbie Contreras on 11-26-2024 Chloride [Moles/Vol] 101 mmol/L 98-108 [facility] Comprehensive Metabolic Prof ilon 11-26-2024 Albumin [Mass/Vol] 4.3 g/dL Normal 3.4-4.8 [facility] Comment on above: Performed By: #### L 502.0250, L501.9985, L501.9520, L100.0100, L501.37509, L501.2450, L500.4050, L506.0400 #### [facility] [address] [place], [address] Albumin/Globulin [Mass ratio] 1.5 {ratio} Normal 0.9-2.4 [facility] Comment on above: Performed By: #### L 502.0250, L501.9985, L501.9520, L100.0100, L501.92364, L501.2450, L500.4050, L506.0400 #### [facility] [address] [place], [place], [phone] (659) ALK PHOS 62 U/L Normal 40-129 [facility] Comment on above: Performed By: #### L 502.0250, L501.9985, L501.9520, L100.0100, L501.55557, L501.2450, L500.4050, L506.0400 #### [facility] [address] [place], [place], [phone] (304) ALT [Catalytic activity/Vol] 41 U/L Normal <=46 [facility] Comment on above: Performed By: #### L 502.0250, L501.9985, L501.9520, L100.0100, L501.01744, L501.2450, L500.4050, L506.0400 #### [facility] [address] [place], [address] AST [Catalytic activity/Vol] 41 U/L High <=37 [facility] Comment on above: Performed By: #### L 502.0250, L501.9985, L501.9520, L100.0100, L501.18133, L501.2450, L500.4050, L506.0400 #### [facility] [address] [place], [address] Bilirubin [Mass/Vol] 0.66 mg/dL Normal 0.00-1.30 [facility] Comment on above: Performed By: #### L 502.0250, L501.9985, L501.9520, L100.0100, L501.43501, L501.2450, L500.4050, L506.0400 #### [facility] [address] [place], [address] BUN/CRE 14.0 RATIO Normal 10-20 [facility] Comment on above: Performed By: #### L 502.0250, L501.9985, L501.9520, L100.0100, L501.57014, L501.2450, L500.4050, L506.0400 #### [facility] [address] [place], [address] Calcium [Mass/Vol] 9.4 mg/dL Normal 7.6-11.0 [facility] Comment on above: Performed By: #### L 502.0250, L501.9985, L501.9520, L100.0100, L501.91959, L501.2450, L500.4050, L506.0400 #### [facility] [address] [place], [address] Chloride [Moles/Vol] 101 mmol/L Normal 98-108 [facility] Comment on above: Performed By: #### L 502.0250, L501.9985, L501.9520, L100.0100, L501.42714, L501.2450, L500.4050, L506.0400 #### [facility] [address] [place], [address] CO2 [Moles/Vol] 23.4 mmol/L Normal 21.0-32.0 [facility] Comment on above: Performed By: #### L 502.0250, L501.9985, L501.9520, L100.0100, L501.38189, L501.2450, L500.4050, L506.0400 #### [facility] [address] [place], [place], [id number] Creatinine [Mass/Vol] 0.90 mg/dL Normal 0.70-1.20 [facility] Comment on above: Performed By: #### L 502.0250, L501.9985, L501.9520, L100.0100, L501.79479, L501.2450, L500.4050, L506.0400 #### [facility] [address] [place], [place], [id number] GAP 12 Normal 5-15 [facility] Comment on above: Performed By: #### L 502.0250, L501.9985, L501.9520, L100.0100, L501.03084, L501.2450, L500.4050, L506.0400 #### [facility] [address] [place], [place], [id number] GFR/1.73 sq M.predicted among non-blacks MDRD (S/P/Bld) [Vol rate/Area] 93 mL/min/{1.73_m2} Normal >60 [facility] Comment on above: Result Comment: mL/m in/1.73m2 CKD-EPI Creatinine Equation (2020) Performed By: #### L 502.0250, L501.9985, L501.9520, L100.0100, L501.13214, L501.2450, L500.4050, L506.0400 #### [facility] [address] [place], [place], [id number] Globulin (S) [Mass/Vol] 2.8 g/dL Normal 2.2-4.2 [facility] Comment on above: Performed By: #### L 502.0250, L501.9985, L501.9520, L100.0100, L501.01496, L501.2450, L500.4050, L506.0400 #### [facility] [address] [place], [address] Glucose [Mass/Vol] 119 mg/dL High 70-99 [facility] Comment on above: Performed By: #### L 502.0250, L501.9985, L501.9520, L100.0100, L501.09992, L501.2450, L500.4050, L506.0400 #### [facility] [address] [place], [address] Potassium [Moles/Vol] 3.8 mmol/L Normal 3.3-5.1 [facility] Comment on above: Performed By: #### L 502.0250, L501.9985, L501.9520, L100.0100, L501.65580, L501.2450, L500.4050, L506.0400 #### [facility] [address] [place], [address] Sodium [Moles/Vol] 137 mmol/L Normal 133-145 [facility] Comment on above: Performed By: #### L 502.0250, L501.9985, L501.9520, L100.0100, L501.37093, L501.2450, L500.4050, L506.0400 #### [facility] [address] [place], [address] T PROT 7.1 g/dL Normal 5.9-8.4 [facility] Comment on above: Performed By: #### L 502.0250, L501.9985, L501.9520, L100.0100, L501.30913, L501.2450, L500.4050, L506.0400 #### [facility] [address] [place], [address] Urea nitrogen [Mass/Vol] 13 mg/dL Normal 4-19 [facility] Comment on above: Performed By: #### L 502.0250, L501.9985, L501.9520, L100.0100, L501.99333, L501.2450, L500.4050, L506.0400 #### [facility] [address] [place], [place], [phone] Eosinophil percentageOrdered By: Shane Contreras on 11-26-2024 Eosinophils/100 WBC (Bld) 1.3 % 0-5 [facility] Erythrocyte distribution wid th ratioOrdered By: Shane Contreras on 11-26-2024 Erythrocyte distribution width (RBC) [Ratio] 13.6 % 11.6-14.6 [facility] Erythrocyte distribution wid th standard deviationOrdered By: Shane Contreras on 11-26-2024 Erythrocyte distribution width (RBC) [Ratio] 44.2 fl High 35.1-43.9 [facility] Free T3on 11-26-2024 Free T3 [Mass/Vol] 3.0 pg/mL Normal 2.18-3.98 [facility] Comment on above: Performed By: #### L 502.0250, L501.9985, L501.9520, L100.0100, L501.07584, L501.2450, L500.4050, L506.0400 #### [facility] [address] [place], [place], [id number] Free [id number] By: Shane whalen on 11-26-2024 Free T3 [Mass/Vol] 3.0 pg/mL 2.18-3.98 [facility] Glomerular filtration rate ( GFR) estimation/1.73 sq m using serum, plasma, or whole bOrdered By: Shane Contreras on 11-26-2024 GFR/1.73 sq M.predicted among non-blacks MDRD (S/P/Bld) [Vol rate/Area] 93 mL/min/{1.73_m2} >60 [facility] Comment on above: mL/min/1.73m2 CKD-EP I Creatinine Equation (2020) Hematocrit Auto (Bld) [Volum e fraction]Ordered By: Shane Contreras on 11-26-2024 Hematocrit (Bld) [Volume fraction] 41.6 % 40-54 [facility] Hemoglobin A1con 11-26-2024 HbA1c (Bld) [Mass fraction] 6.1 % High <=5.6 [facility] Comment on above: Result Comment: Norm al < 5.7 % Prediabetic 5.7 - 6.4 % Diabetic >or= 6.5 % Please note range changes. Performed By: #### L 502.0250, L501.9985, L501.9520, L100.0100, L501.72869, L501.2450, L500.4050, L506.0400 #### [facility] [address] [place], [address] Hemoglobin A1c percentageOrd ered By: Shane Contreras on 11-26-2024 HbA1c (Bld) [Mass fraction] 6.1 % High <5.7 [facility] Comment on above: Normal < 5.7 % Predi abetic 5.7 - 6.4 % Diabetic >or= 6.5 % Please note range changes. Hemoglobin measurementOrdere d By: Shane Contreras on 11-26-2024 Hemoglobin (Bld) [Mass/Vol] 14.0 g/dL 13.0-16.5 [facility] Immature granulocytes/100 WB C Auto (Bld)Ordered By: Shane Contreras on 11-26-2024 Immature granulocytes/100 WBC (Bld) 0.600 % 0.0-0.9 [facility] Comment on above: IG% - Immature Granu locytes (promyelocytes, myelocytes and metamyelocytes) > 1% indicates that a LEFT SHIFT is Present. Laboratory - Chemistry and C hemistry - challengeOrdered By: Shane Contreras on 11-26-2024 AST [Catalytic activity/Vol] 41 U/L High <38 [facility] Lipaseon 11-26-2024 Lipase [Catalytic activity/Vol] 16 U/L Normal 13-75 [facility] Comment on above: Result Comment: Joyce andino note: LIPASE revised reference range effective 22. New Lipase methodology. Expected to produce lower values than the previous assay method. NEW Reference Range: 13 - 75 U/L Performed By: #### L 502.0250, L501.9985, L501.9520, L100.0100, L501.78909, L501.2450, L500.4050, L506.0400 #### [facility] [address] [place], [place], [phone] Lipase measurementOrdered By : Shane Contreras on 11-26-2024 Lipase [Catalytic activity/Vol] 16 U/L 13-75 [facility] Comment on above: Please note:LIPASE r evised reference range effective 22. New Lipase methodology. Expected to produce lower values than the previous assay method. NEW Reference Range: 13 - 75 U/L MCV (mean corpuscular volume ) determinationOrdered By: Shane Contreras on 11-26-2024 MCV (RBC) [Entitic vol] 89.5 fL 80-94 [facility] Mean corpuscular hemoglobin (MCH) determinationOrdered By: Shane Contreras on 11-26-2024 MCH (RBC) [Entitic mass] 30.1 pg 27.0-32.0 [facility] Mean corpuscular hemoglobin concentration (MCHC) determinationOrdered By: Shane Contreras on 11-26-2024 MCHC (RBC) [Mass/Vol] 33.7 g/dL 32-36 [facility] Mean platelet volume determi nationOrdered By: Shane Contreras on 11-26-2024 Platelet mean volume (Bld) [Entitic vol] 10.1 fL 6.2-12.0 [facility] Microalb:Creat Ratio,Random URon 11-26-2024 MALB:CREAT Normal [facility] Comment on above: Result Comment: NO U RINE REC'D-EMAIL SENT Performed By: #### L 502.0250, L501.9985, L501.9520, L100.0100, L501.22768, L501.2450, L500.4050, L506.0400 #### [facility] [address] [place], [place], [id number] MICROALBUMIN,UR Normal NO RANGE EST. [facility] Comment on above: Result Comment: NO U RINE REC'D-EMAIL SENT Performed By: #### L 502.0250, L501.9985, L501.9520, L100.0100, L501.03598, L501.2450, L500.4050, L506.0400 #### [facility] [address] [place], [place], [phone] UR CREAT Normal 39.00-259. 00 [facility] Comment on above: Result Comment: NO U RINE REC'D-EMAIL SENT Performed By: #### L 502.0250, L501.9985, L501.9520, L100.0100, L501.91692, L501.2450, L500.4050, L506.0400 #### [facility] [address] [place], [place], [phone] Monocyte percentageOrdered B y: Shane Contreras on 11-26-2024 Monocytes/100 WBC (Bld) 13.5 % High 0-10 [facility] Neutrophil percentageOrdered By: Shane Contreras on 11-26-2024 Neutrophils/100 WBC (Bld) 56.4 % 47-70 [facility] Nucleated red blood cell per centageOrdered By: Shane Contreras on 11-26-2024 Nucleated RBC/100 WBC (Bld) [Ratio] 0 % 0-5 [facility] Platelet countOrdered By: Herbie Contreras on 11-26-2024 Platelets (Bld) [#/Vol] 235 10*3/uL 150-450 [facility] Potassium measurement (mass/ volume)Ordered By: Shane Contreras on 11-26-2024 Potassium (Unsp spec) [Mass/Vol] 3.8 mmol/L 3.3-5.1 [facility] RBC Auto (Bld) [#/Vol]Ordere d By: Shane Contreras on 11-26-2024 RBC (Bld) [#/Vol] 4.65 10*6/uL 4.6-6.2 [facility] Serum creatinine measurement (mass/volume)Ordered By: Shane Contreras on 11-26-2024 Creatinine [Mass/Vol] 0.90 mg/dL 0.70-1.20 [facility] Serum globulin measurementOr dered By: Shane Contreras on 11-26-2024 Globulin (S) [Mass/Vol] 2.8 g/dL 2.2-4.2 [facility] Serum glucose measurement (m ass/volume)Ordered By: Shane Contreras on 11-26-2024 Glucose [Mass/Vol] 119 mg/dL High 70-99 [facility] Serum or plasma alanine campos otransferase (ALT) measurementOrdered By: Shane Contreras on 11-26-2024 ALT [Catalytic activity/Vol] 41 U/L <47 [facility] Serum or plasma albumin malissa urement (mass/volume)Ordered By: Shane Contreras on 11-26-2024 Albumin [Mass/Vol] 4.3 g/dL 3.4-4.8 [facility] Serum or plasma albumin/glob ulin mass ratioOrdered By: Shane Contreras on 11-26-2024 Albumin/Globulin [Mass ratio] 1.5 {ratio} 0.9-2.4 [facility] Serum or plasma alkaline letitia sphatase measurementOrdered By: Shane Contreras on 11-26-2024 ALP [Catalytic activity/Vol] 62 U/L 40-129 [facility] Serum or plasma calcium malissa urement (mass/volume)Ordered By: Shane Contreras on 11-26-2024 Calcium [Mass/Vol] 9.4 mg/dL 7.6-11.0 [facility] Serum or plasma urea nitroge n measurement (mass/volume)Ordered By: Shane Contreras on 11-26-2024 Urea nitrogen [Mass/Vol] 13 mg/dL 4-19 [facility] Sodium levelOrdered By: Shane Contreras on 11-26-2024 Sodium [Moles/Vol] 137 mmol/L 133-145 [facility] T4 Free Directon 11-26-2024 T4 FREE DIRECT 1.30 ng/dL Normal 0.76-1.46 [facility] Comment on above: Performed By: #### L 502.0250, L501.9979, L501.9520, L100.0100, L501.47008, L501.2450, L500.4050, L506.0400 #### [facility] [address] [place], [place], [phone] T4 freeOrdered By: Shane whalen on 11-26-2024 Free T4 [Mass/Vol] 1.30 ng/dL 0.76-1.46 [facility] TSH DL <= 0.005 mIU/L QnOrde red By: Shane Contreras on 11-26-2024 TSH Qn 2.140 uIU/mL 0.300-4.20 0 [facility] Thyroid Stim Hormone (TSH)on 11-26-2024 TSH 2.140 uIU/mL Normal 0.300-4.20 0 [facility] Comment on above: Performed By: #### L 502.0250, L501.9985, L501.9520, L100.0100, L501.69487, L501.2450, L500.4050, L506.0400 #### [facility] [address] [place], [place], [phone] Total proteinOrdered By: Teressa Contreras on 11-26-2024 Protein [Mass/Vol] 7.1 g/dL 5.9-8.4 [facility] White blood cell (WBC) count Ordered By: Shane Contreras on 11-26-2024 WBC (Bld) [#/Vol] 4.7 10*3/uL 4.4-11.0 [facility] Albumin to globulin ratioOrd ered By: Shane Contreras on 08-24-2024 Albumin/Globulin [Mass ratio] 1.0 {ratio} 0.9-2.4 [facility] Bilirubin, totalOrdered By: Shane Contreras on 08-24-2024 Bilirubin [Mass/Vol] 0.80 mg/dL 0.20-1.00 [facility] Comment on above: For patients on eltr ombopag therapy, use of Dimension Christopher TBIL is not recommended. Blood urea nitrogen (BUN)/cr eatinine ratioOrdered By: Shane Contreras on 08-24-2024 Urea nitrogen/Creatinine [Mass ratio] 13.5 mg/mg 10-20 [facility] Carbon dioxide measurementOr dered By: Shane Contreras on 08-24-2024 CO2 [Moles/Vol] 26.0 mmol/L 21.0-32.0 [facility] Chloride measurementOrdered By: Shane Contreras on 08-24-2024 Chloride [Moles/Vol] 103 mmol/L 98-107 [facility] Comprehensive Metabolic Prof ilon 08-24-2024 Albumin [Mass/Vol] 3.6 g/dL Normal 3.2-5.0 [facility] Comment on above: Performed By: #### L 502.0250, L501.9985, L501.9520, L100.0100, L501.50315, L501.2450, L500.4050, L506.0400 #### [facility] [address] [place], [address] Albumin/Globulin [Mass ratio] 1.0 {ratio} Normal 0.9-2.4 [facility] Comment on above: Performed By: #### L 502.0250, L501.9985, L501.9520, L100.0100, L501.42643, L501.2450, L500.4050, L506.0400 #### [facility] [address] [place], [address] ALK P 62 U/L Normal 45-117 [facility] Comment on above: Performed By: #### L 502.0250, L501.9985, L501.9520, L100.0100, L501.70908, L501.2450, L500.4050, L506.0400 #### [facility] [address] [place], [address] ALT [Catalytic activity/Vol] 32 U/L Normal 16-61 [facility] Comment on above: Performed By: #### L 502.0250, L501.9985, L501.9520, L100.0100, L501.02310, L501.2450, L500.4050, L506.0400 #### [facility] [address] [place], [address] AST [Catalytic activity/Vol] 21 U/L Normal 15-37 [facility] Comment on above: Performed By: #### L 502.0250, L501.9985, L501.9520, L100.0100, L501.81462, L501.2450, L500.4050, L506.0400 #### [facility] [address] [place], [address] Bilirubin [Mass/Vol] 0.80 mg/dL Normal 0.20-1.00 [facility] Comment on above: Result Comment: For patients on eltrombopag therapy, use of Dimension Christopher TBIL is not recommended. Performed By: #### L 502.0250, L501.9985, L501.9520, L100.0100, L501.34401, L501.2450, L500.4050, L506.0400 #### [facility] [address] [place], [address] BUN/CRE 13.5 RATIO Normal 10-20 [facility] Comment on above: Performed By: #### L 502.0250, L501.9985, L501.9520, L100.0100, L501.01191, L501.2450, L500.4050, L506.0400 #### [facility] [address] [place], [address] CA,Total 9.5 mg/dL Normal 8.5-10.1 [facility] Comment on above: Performed By: #### L 502.0250, L501.9985, L501.9520, L100.0100, L501.99016, L501.2450, L500.4050, L506.0400 #### [facility] [address] [place], [address] Chloride [Moles/Vol] 103 mmol/L Normal 98-107 [facility] Comment on above: Performed By: #### L 502.0250, L501.9985, L501.9520, L100.0100, L501.75943, L501.2450, L500.4050, L506.0400 #### [facility] [address] [place], [address] CO2 [Moles/Vol] 26.0 mmol/L Normal 21.0-32.0 [facility] Comment on above: Performed By: #### L 502.0250, L501.9985, L501.9520, L100.0100, L501.62042, L501.2450, L500.4050, L506.0400 #### [facility] [address] [place], [address] Creatinine [Mass/Vol] 0.89 mg/dL Normal 0.70-1.30 [facility] Comment on above: Result Comment: The validity of the calculated GFR GFRAA in patients over 70 years has not been determined. Clinical correlation is essential. Performed By: #### L 502.0250, L501.9985, L501.9520, L100.0100, L501.70453, L501.2450, L500.4050, L506.0400 #### [facility] [address] [place], [address] EST GFR - AA 110 mL/min Normal >60 [facility] Comment on above: Result Comment: Afri can M[place]gasque GFR Calc Performed By: #### L 502.0250, L501.9985, L501.9520, L100.0100, L501.41853, L501.2450, L500.4050, L506.0400 #### [facility] [address] [place], [address] GAP 9 Normal 5-15 [facility] Comment on above: Performed By: #### L 502.0250, L501.9985, L501.9520, L100.0100, L501.88713, L501.2450, L500.4050, L506.0400 #### [facility] [address] [place], [place], [phone] (178) GFR/1.73 sq M.predicted among non-blacks MDRD (S/P/Bld) [Vol rate/Area] 91 mL/min/{1.73_m2} Normal >60 [facility] Comment on above: Result Comment: Non- GFR Calc Performed By: #### L 502.0250, L501.9985, L501.9520, L100.0100, L501.32021, L501.2450, L500.4050, L506.0400 #### [facility] [address] [place], [place], [phone] (800) Globulin (S) [Mass/Vol] 3.7 g/dL Normal 2.2-4.2 [facility] Comment on above: Performed By: #### L 502.0250, L501.9985, L501.9520, L100.0100, L501.33510, L501.2450, L500.4050, L506.0400 #### [facility] [address] [place], [address] Glucose [Mass/Vol] 111 mg/dL High 74-106 [facility] Comment on above: Result Comment: Fast ing Glucose result from 100 to 125 mg/dL suggests IMPAIRED HOMEOSTASIS per A.D.A. criteria. Performed By: #### L 502.0250, L501.9985, L501.9520, L100.0100, L501.32700, L501.2450, L500.4050, L506.0400 #### [facility] [address] [place], [address] Potassium [Moles/Vol] 3.7 mmol/L Normal 3.5-5.1 [facility] Comment on above: Performed By: #### L 502.0250, L501.9985, L501.9520, L100.0100, L501.58911, L501.2450, L500.4050, L506.0400 #### [facility] [address] [place], [place], [id number] Sodium [Moles/Vol] 138 mmol/L Normal 136-145 [facility] Comment on above: Performed By: #### L 502.0250, L501.9985, L501.9520, L100.0100, L501.31949, L501.2450, L500.4050, L506.0400 #### [facility] [address] [place], [place], [id number] T PROT 7.3 g/dL Normal 6.4-8.2 [facility] Comment on above: Performed By: #### L 502.0250, L501.9985, L501.9520, L100.0100, L501.94792, L501.2450, L500.4050, L506.0400 #### [facility] [address] [place], [place], [id number] Urea nitrogen [Mass/Vol] 12 mg/dL Normal 7-18 [facility] Comment on above: Performed By: #### L 502.0250, L501.9985, L501.9520, L100.0100, L501.40614, L501.2450, L500.4050, L506.0400 #### [facility] [address] [place], [place], [phone] Direct serum free thyroxine (FT4) measurementOrdered By: Shane Contreras on 08-24-2024 Free T4 [Mass/Vol] 1.02 ng/dL 0.76-1.46 [facility] Free T3on 08-24-2024 Free T3 [Mass/Vol] 2.8 pg/mL Normal 2.18-3.98 [facility] Comment on above: Performed By: #### L 502.0250, L501.9985, L501.9520, L100.0100, L501.55709, L501.2450, L500.4050, L506.0400 #### [facility] [address] [place], [address] Free F8Pfrkavy By: Shane whalen on 08-24-2024 Free T3 [Mass/Vol] 2.8 pg/mL 2.18-3.98 [facility] Glomerular filtration rate ( GFR) estimationOrdered By: Shane Contreras on 08-24-2024 GFR/1.73 sq M.predicted among non-blacks MDRD (S/P/Bld) [Vol rate/Area] 91 mL/min/{1.73_m2} >60 [facility] Comment on above: Non- GFR Calc Glucose measurementOrdered B y: Shane Contreras on 08-24-2024 Glucose [Mass/Vol] 111 mg/dL High 74-106 [facility] Comment on above: Fasting Glucose resu lt from 100 to 125 mg/dL suggests IMPAIRED HOMEOSTASIS per A.D.A. criteria. High density lipoprotein (HD L) measurementOrdered By: Shane Contreras on 08-24-2024 Cholesterol in HDL [Mass/Vol] 53 mg/dL >40 [facility] Comment on above: The drugs N-Acetylcy steine and Metamizole may falsely depress this assay. Reference Range HDL <40 mg/dL Low HDL Cholesterol HDL >or= 60 mg/dL High HDL Cholesterol Laboratory - Chemistry and C hemistry - challengeOrdered By: Shane Contreras on 08-24-2024 AST [Catalytic activity/Vol] 21 U/L 15-37 [facility] Lipid Profileon 08-24-2024 Cholesterol [Mass/Vol] 159 mg/dL Normal 200 [facility] Comment on above: Result Comment: <200 mg/dL Desirable 200-240 mg/dL Borderline >240 mg/dL High Risk Performed By: #### L 502.0250, L501.9985, L501.9520, L100.0100, L501.45372, L501.2450, L500.4050, L506.0400 #### [facility] [address] [place], [address] Cholesterol in HDL [Mass/Vol] 53 mg/dL Normal [facility] Comment on above: Result Comment: The drugs N-Acetylcysteine and Metamizole may falsely depress this assay. Reference Range HDL <40 mg/dL Low HDL Cholesterol HDL >or= 60 mg/dL High HDL Cholesterol Performed By: #### L 502.0250, L501.9985, L501.9520, L100.0100, L501.72880, L501.2450, L500.4050, L506.0400 #### [facility] [address] [place], [address] Cholesterol in LDL [Mass/Vol] 63 mg/dL Normal 0-130 [facility] Comment on above: Performed By: #### L 502.0250, L501.9985, L501.9520, L100.0100, L501.30560, L501.2450, L500.4050, L506.0400 #### [facility] [address] [place], [address] Cholesterol in VLDL [Mass/Vol] 43 mg/dL High 5-40 [facility] Comment on above: Performed By: #### L 502.0250, L501.9985, L501.9520, L100.0100, L501.71233, L501.2450, L500.4050, L506.0400 #### [facility] [address] [place], [address] Triglyceride [Mass/Vol] 215 mg/dL High [facility] Comment on above: Result Comment: The drugs N-Acetylcysteine and Metamizole may falsely depress this assay. Serum Triglycerides Reference Interval Normal <150 mg/dL Borderline high 150 - 199 mg/dL High 200 - 499 mg/dL Very High > or = 500 mg/dL Performed By: #### L 502.0250, L501.9985, L501.9520, L100.0100, L501.38293, L501.2450, L500.4050, L506.0400 #### [facility] [place], [address] Low density lipoprotein (LDL ) cholesterol measurementOrdered By: Shane Contreras on 08-24-2024 Cholesterol in LDL [Mass/Vol] 63 mg/dL 0-130 [facility] Potassium measurementOrdered By: Shane Contreras on 08-24-2024 Potassium [Moles/Vol] 3.7 mmol/L 3.5-5.1 [facility] Serum anion gap measurementO rdered By: Shane Contreras on 08-24-2024 Anion gap [Moles/Vol] 9 mmol/L 5-15 [facility] Serum globulin measurementOr dered By: Shane Contreras on 08-24-2024 Globulin (S) [Mass/Vol] 3.7 g/dL 2.2-4.2 [facility] Serum or plasma alanine campos otransferase (ALT) measurementOrdered By: Shane Contreras on 08-24-2024 ALT [Catalytic activity/Vol] 32 U/L 16-61 [facility] Serum or plasma albumin malissa urement (mass/volume)Ordered By: Shane Contreras on 08-24-2024 Albumin [Mass/Vol] 3.6 g/dL 3.2-5.0 [facility] Serum or plasma alkaline letitia sphatase measurementOrdered By: Shane Contreras on 08-24-2024 ALP [Catalytic activity/Vol] 62 U/L 45-117 [facility] Serum or plasma calcium malissa urement (mass/volume)Ordered By: Shane Contreras on 08-24-2024 Calcium [Mass/Vol] 9.5 mg/dL 8.5-10.1 [facility] Serum or plasma cholesterol measurement (mass/volume)Ordered By: Shane Contreras on 08-24-2024 Cholesterol [Mass/Vol] 159 mg/dL <200 [facility] Comment on above: <200 mg/dL Desirable 200-240 mg/dL Borderline >240 mg/dL High Risk Serum or plasma creatinine m easurement (mass/volume)Ordered By: Shane Contreras on 08-24-2024 Creatinine [Mass/Vol] 0.89 mg/dL 0.70-1.30 [facility] Comment on above: The validity of the calculated GFR & GFRAA in patients over 70 years has not been determined. Clinical correlation is essential. Serum or plasma thyroid stim ulating hormone (TSH) measurement (units/volume)Ordered By: Shane Contreras on 08-24-2024 TSH Qn 5.650 uIU/mL High 0.358-3.74 0 [facility] Serum or plasma urea nitroge n measurement (mass/volume)Ordered By: Shane Contreras on 08-24-2024 Urea nitrogen [Mass/Vol] 12 mg/dL 7-18 [facility] Sodium levelOrdered By: Shane Contreras on 08-24-2024 Sodium [Moles/Vol] 138 mmol/L 136-145 [facility] T4 Free Directon 08-24-2024 T4 FREE DIRECT 1.02 ng/dL Normal 0.76-1.46 [facility] Comment on above: Performed By: #### L 502.0250, L501.9985, L501.9520, L100.0100, L501.65547, L501.2450, L500.4050, L506.0400 #### [facility] [address] [place], [place], [id number] Thyroid Stim Hormone (TSH)on 08-24-2024 TSH 5.650 uIU/mL High 0.358-3.74 0 [facility] Comment on above: Performed By: #### L 502.0250, L501.9985, L501.9520, L100.0100, L501.08573, L501.2450, L500.4050, L506.0400 #### [facility] [address] [place], [place], [phone] (351) Total proteinOrdered By: Teressa Contreras on 08-24-2024 Protein [Mass/Vol] 7.3 g/dL 6.4-8.2 [facility] Triglycerides measurementOrd ered By: Shane Contreras on 08-24-2024 Triglyceride [Mass/Vol] 215 mg/dL High <199 [facility] Comment on above: The drugs N-Acetylcy steine and Metamizole may falsely depress this assay.Serum Triglycerides Reference Interval Normal <150 mg/dL Borderline high 150 - 199 mg/dL High 200 - 499 mg/dL Very High > or = 500 mg/dL Very low density lipoprotein (VLDL) cholesterol measurementOrdered By: Shane Contreras on 08-24-2024 Very low density lipoprotein (VLDL) cholesterol measurement 43 mg/dL High 5-40 [facility] Miscellaneous Lab Procedureo n 06-01-2024 [facility] [place] [facility] TEST Normal [facility] Comment on above: Order Comment: SER/R [id number] APO-B SER/RT Result Comment: TEST RESULTS LIMITS Apolipoprotein B 102 High mg/dL <90 Desirable < 90 Borderline High 90 - 99 High 100 - 130 Very High >130 [facility] RISK THERAPEUTIC TARGET CATEGORY APO B (mg/dL) Very High Risk <80 (if extreme risk <70) High Risk <90 Moderate Risk <90 TESTING PERFORMED AT [facility]. ORIGINAL REPORT ON FILE IN LAB CONTAINS ADDITIONAL TEST SITE INFORMATION. Performed By: #### L 502.0250, L501.9985, L501.9520, L100.0100, L501.93634, L501.2450, L500.4050, L506.0400 #### [facility] [address] [place], [address] Comprehensive Metabolic Prof ilon 05-29-2024 Albumin [Mass/Vol] 3.9 g/dL Normal 3.2-5.0 [facility] Comment on above: Performed By: #### L 502.0250, L501.9985, L501.9520, L100.0100, L501.07718, L501.2450, L500.4050, L506.0400 #### [facility] [address] [place], [address] Albumin/Globulin [Mass ratio] 1.0 {ratio} Normal 0.9-2.4 [facility] Comment on above: Performed By: #### L 502.0250, L501.9985, L501.9520, L100.0100, L501.15218, L501.2450, L500.4050, L506.0400 #### [facility] [address] [place], [address] ALK P 66 U/L Normal 45-117 [facility] Comment on above: Performed By: #### L 502.0250, L501.9985, L501.9520, L100.0100, L501.98953, L501.2450, L500.4050, L506.0400 #### [facility] [address] [place], [address] ALT [Catalytic activity/Vol] 27 U/L Normal 16-61 [facility] Comment on above: Performed By: #### L 502.0250, L501.9985, L501.9520, L100.0100, L501.72806, L501.2450, L500.4050, L506.0400 #### [facility] [address] [place], [address] AST [Catalytic activity/Vol] 14 U/L Low 15-37 [facility] Comment on above: Result Comment: Slig ht Hemolysis, Result may be falsely increased. Performed By: #### L 502.0250, L501.9985, L501.9520, L100.0100, L501.89835, L501.2450, L500.4050, L506.0400 #### [facility] [address] [place], [address] Bilirubin [Mass/Vol] 0.40 mg/dL Normal 0.20-1.00 [facility] Comment on above: Result Comment: For patients on eltrombopag therapy, use of Dimension Christopher TBIL is not recommended. Performed By: #### L 502.0250, L501.9985, L501.9520, L100.0100, L501.13784, L501.2450, L500.4050, L506.0400 #### [facility] [address] [place], [address] BUN/CRE 16.1 RATIO Normal 10-20 [facility] Comment on above: Performed By: #### L 502.0250, L501.9985, L501.9520, L100.0100, L501.35305, L501.2450, L500.4050, L506.0400 #### [facility] [address] [place], [address] CA,Total 9.4 mg/dL Normal 8.5-10.1 [facility] Comment on above: Performed By: #### L 502.0250, L501.9985, L501.9520, L100.0100, L501.56323, L501.2450, L500.4050, L506.0400 #### [facility] [address] [place], [address] Chloride [Moles/Vol] 104 mmol/L Normal 98-107 [facility] Comment on above: Performed By: #### L 502.0250, L501.9985, L501.9520, L100.0100, L501.02091, L501.2450, L500.4050, L506.0400 #### [facility] [address] [place], [place], [phone] (529) CO2 [Moles/Vol] 30.0 mmol/L Normal 21.0-32.0 [facility] Comment on above: Performed By: #### L 502.0250, L501.9985, L501.9520, L100.0100, L501.77783, L501.2450, L500.4050, L506.0400 #### [facility] [address] [place], [address] (730) Creatinine [Mass/Vol] 0.99 mg/dL Normal 0.70-1.30 [facility] Comment on above: Result Comment: The validity of the calculated GFR GFRAA in patients over 70 years has not been determined. Clinical correlation is essential. Performed By: #### L 502.0250, L501.9985, L501.9520, L100.0100, L501.30086, L501.2450, L500.4050, L506.0400 #### [facility] [address] [place], [place], [id number] EST GFR - AA 97 mL/min Normal >60 [facility] Comment on above: Result Comment: Afri can [place] GFR Calc Performed By: #### L 502.0250, L501.9985, L501.9520, L100.0100, L501.26988, L501.2450, L500.4050, L506.0400 #### [facility] [address] [place], [place], [id number] GAP 4 Low 5-15 [facility] Comment on above: Performed By: #### L 502.0250, L501.9985, L501.9520, L100.0100, L501.28949, L501.2450, L500.4050, L506.0400 #### [facility] [address] [place], [address] GFR/1.73 sq M.predicted among non-blacks MDRD (S/P/Bld) [Vol rate/Area] 80 mL/min/{1.73_m2} Normal >60 [facility] Comment on above: Result Comment: Non- GFR Calc Performed By: #### L 502.0250, L501.9985, L501.9520, L100.0100, L501.20060, L501.2450, L500.4050, L506.0400 #### [facility] [address] [place], [address] Globulin (S) [Mass/Vol] 3.8 g/dL Normal 2.2-4.2 [facility] Comment on above: Performed By: #### L 502.0250, L501.9985, L501.9520, L100.0100, L501.48101, L501.2450, L500.4050, L506.0400 #### [facility] [address] [place], [address] Glucose [Mass/Vol] 109 mg/dL High 74-106 [facility] Comment on above: Result Comment: Fast ing Glucose result from 100 to 125 mg/dL suggests IMPAIRED HOMEOSTASIS per A.D.A. criteria. Performed By: #### L 502.0250, L501.9985, L501.9520, L100.0100, L501.43736, L501.2450, L500.4050, L506.0400 #### [facility] [address] [place], [address] Potassium [Moles/Vol] 4.2 mmol/L Normal 3.5-5.1 [facility] Comment on above: Result Comment: Slig ht Hemolysis, Result may be falsely increased. Performed By: #### L 502.0250, L501.9985, L501.9520, L100.0100, L501.83429, L501.2450, L500.4050, L506.0400 #### [facility] [address] [place], [address] Sodium [Moles/Vol] 138 mmol/L Normal 136-145 [facility] Comment on above: Performed By: #### L 502.0250, L501.9985, L501.9520, L100.0100, L501.96848, L501.2450, L500.4050, L506.0400 #### [facility] [address] [place], [address] T PROT 7.7 g/dL Normal 6.4-8.2 [facility] Comment on above: Performed By: #### L 502.0250, L501.9985, L501.9520, L100.0100, L501.30941, L501.2450, L500.4050, L506.0400 #### [facility] [address] [place], [address] Urea nitrogen [Mass/Vol] 16 mg/dL Normal 7-18 [facility] Comment on above: Performed By: #### L 502.0250, L501.9985, L501.9520, L100.0100, L501.95141, L501.2450, L500.4050, L506.0400 #### [facility] [address] [place], [address] Free T3on 05-29-2024 Free T3 [Mass/Vol] 3.0 pg/mL Normal 2.18-3.98 [facility] Comment on above: Performed By: #### L 502.0250, L501.9985, L501.9520, L100.0100, L501.50460, L501.2450, L500.4050, L506.0400 #### [facility] [address] [place], [place], [phone] Hemoglobin A1con 05-29-2024 HbA1c (Bld) [Mass fraction] 6.0 % High 3.8-5.6 [facility] Comment on above: Result Comment: Norm al < 5.7 % Prediabetic 5.7 - 6.4 % Diabetic >or= 6.5 % Please note range changes. Performed By: #### L 502.0250, L501.9985, L501.9520, L100.0100, L501.34774, L501.2450, L500.4050, L506.0400 #### [facility] [address] [place], [address] Lipid Profileon 05-29-2024 Cholesterol [Mass/Vol] 214 mg/dL High 200 [facility] Comment on above: Result Comment: <200 mg/dL Desirable 200-240 mg/dL Borderline >240 mg/dL High Risk Performed By: #### L 502.0250, L501.9985, L501.9520, L100.0100, L501.04311, L501.2450, L500.4050, L506.0400 #### [facility] [address] [place], [place], [phone] (599) Cholesterol in HDL [Mass/Vol] 48 mg/dL Normal [facility] Comment on above: Result Comment: The drugs N-Acetylcysteine and Metamizole may falsely depress this assay. Reference Range HDL <40 mg/dL Low HDL Cholesterol HDL >or= 60 mg/dL High HDL Cholesterol Performed By: #### L 502.0250, L501.9985, L501.9520, L100.0100, L501.61586, L501.2450, L500.4050, L506.0400 #### [facility] [address] [place], [address] Cholesterol in LDL [Mass/Vol] 103 mg/dL Normal 0-130 [facility] Comment on above: Performed By: #### L 502.0250, L501.9985, L501.9520, L100.0100, L501.41839, L501.2450, L500.4050, L506.0400 #### [facility] [address] [place], [place], [id number] Cholesterol in VLDL [Mass/Vol] 63 mg/dL High 5-40 [facility] Comment on above: Performed By: #### L 502.0250, L501.9985, L501.9520, L100.0100, L501.03633, L501.2450, L500.4050, L506.0400 #### [facility] [address] [place], [place], [phone] (224) Triglyceride [Mass/Vol] 316 mg/dL High [facility] Comment on above: Result Comment: The drugs N-Acetylcysteine and Metamizole may falsely depress this assay. Serum Triglycerides Reference Interval Normal <150 mg/dL Borderline high 150 - 199 mg/dL High 200 - 499 mg/dL Very High > or = 500 mg/dL Performed By: #### L 502.0250, L501.9985, L501.9520, L100.0100, L501.85997, L501.2450, L500.4050, L506.0400 #### [facility] [address] [place], [place], [phone] PSA,Total- Diagnosticon 11-1 PSA, DIAGNOSTIC 0.64 ng/mL Normal 0.0-4.0 [facility] Comment on above: Result Comment: This test was performed using the TPSA assay method for the [employer] system. Values obtained with different assay methods cannot be used interchangably. When changing PSA assays in the course of monitoring a patient, additional sequential testing should be carried out to confirm baseline values. Performed By: #### L 502.0250, L501.9985, L501.9520, L100.0100, L501.17094, L501.2450, L500.4050, L506.0400 #### [facility] [address] [place], [place], [id number] T4 Free Directon 05-29-2024 T4 FREE DIRECT 0.95 ng/dL Normal 0.76-1.46 [facility] Comment on above: Performed By: #### L 502.0250, L501.9985, L501.9520, L100.0100, L501.64281, L501.2450, L500.4050, L506.0400 #### [facility] [address] [facility] [place], [place], [address] Thyroid Stim Hormone (TSH)on 05-29-2024 TSH 2.140 uIU/mL Normal 0.358-3.74 0 [facility] Comment on above: Performed By: #### L 502.0250, L501.9985, L501.9520, L100.0100, L501.13361, L501.2450, L500.4050, L506.0400 #### [facility] [address] [facility] [place], [place], [phone] Angiotensin Convert Enzymeon 05-13-2024 ANGIOT-CONV.ENZ 42 U/L Normal 14-82 [facility] Comment on above: Result Comment: Perf ormed at: CB - [facility] [address] [id number] Splicer Machine Operator: Abdulkadir Sahni PhD, Phone: [phone] Performed By: #### L 502.0250, L501.9985, L501.9520, L100.0100, L501.21214, L501.2450, L500.4050, L506.0400 #### [facility] [address] [facility] [place], [place], [address] CBC W/Diff, Automatedon 04-15 Absolute Lymph 1.49 X10 3/uL Normal 0.83-4.51 [facility] Comment on above: Performed By: #### L 502.0250, L501.9985, L501.9520, L100.0100, L501.94001, L501.2450, L500.4050, L506.0400 #### [facility] [address] [place], [address] Absolute Neut 2.6 X10 3/uL Normal 2.0-7.7 [facility] Comment on above: Performed By: #### L 502.0250, L501.9985, L501.9520, L100.0100, L501.71410, L501.2450, L500.4050, L506.0400 #### [facility] [address] [place], [address] Basophils/100 WBC (Bld) 0.8 % Normal 0-1 [facility] Comment on above: Performed By: #### L 502.0250, L501.9985, L501.9520, L100.0100, L501.88904, L501.2450, L500.4050, L506.0400 #### [facility] [address] [place], [address] Eosinophils/100 WBC (Bld) 2.3 % Normal 0-5 [facility] Comment on above: Performed By: #### L 502.0250, L501.9985, L501.9520, L100.0100, L501.71339, L501.2450, L500.4050, L506.0400 #### [facility] [address] [place], [address] Erythrocyte distribution width (RBC) [Ratio] 13.5 % Normal 11.6-14.6 [facility] Comment on above: Performed By: #### L 502.0250, L501.9985, L501.9520, L100.0100, L501.87079, L501.2450, L500.4050, L506.0400 #### [facility] [address] [place], [address] Hematocrit (Bld) [Volume fraction] 41.7 % Normal 40-54 [facility] Comment on above: Performed By: #### L 502.0250, L501.9985, L501.9520, L100.0100, L501.34266, L501.2450, L500.4050, L506.0400 #### [facility] [address] [place], [address] Hemoglobin (Bld) [Mass/Vol] 13.7 g/dL Normal 13.0-16.5 [facility] Comment on above: Performed By: #### L 502.0250, L501.9985, L501.9520, L100.0100, L501.76877, L501.2450, L500.4050, L506.0400 #### [facility] [address] [place], [address] IG% 0.400 Normal 0.0-0.9 [facility] Comment on above: Result Comment: IG% - Immature Granulocytes (promyelocytes, myelocytes and metamyelocytes) > 1% indicates that a LEFT SHIFT is Present. Performed By: #### L 502.0250, L501.9985, L501.9520, L100.0100, L501.24507, L501.2450, L500.4050, L506.0400 #### [facility] [address] [place], [address] Lymphocytes/100 WBC (Bld) 30.8 % Normal 19-41 [facility] Comment on above: Performed By: #### L 502.0250, L501.9985, L501.9520, L100.0100, L501.18810, L501.2450, L500.4050, L506.0400 #### [facility] [address] [place], [address] MCH (RBC) [Entitic mass] 29.4 pg Normal 27.0-32.0 [facility] Comment on above: Performed By: #### L 502.0250, L501.9985, L501.9520, L100.0100, L501.15112, L501.2450, L500.4050, L506.0400 #### [facility] [address] [place], [address] MCHC (RBC) [Mass/Vol] 32.9 g/dL Normal 32-36 [facility] Comment on above: Performed By: #### L 502.0250, L501.9985, L501.9520, L100.0100, L501.64417, L501.2450, L500.4050, L506.0400 #### [facility] [address] [place], [address] MCV (RBC) [Entitic vol] 89.5 fL Normal 80-94 [facility] Comment on above: Performed By: #### L 502.0250, L501.9985, L501.9520, L100.0100, L501.10997, L501.2450, L500.4050, L506.0400 #### [facility] [address] [place], [address] Monocytes/100 WBC (Bld) 12.0 % High 0-10 [facility] Comment on above: Performed By: #### L 502.0250, L501.9985, L501.9520, L100.0100, L501.57507, L501.2450, L500.4050, L506.0400 #### [facility] [address] [place], [address] Neutrophils/100 WBC (Bld) 53.7 % Normal 47-70 [facility] Comment on above: Performed By: #### L 502.0250, L501.9985, L501.9520, L100.0100, L501.08488, L501.2450, L500.4050, L506.0400 #### [facility] [address] [place], [address] Nucleated RBC (Bld) [#/Vol] 0 10*3/uL Normal 0-5 [facility] Comment on above: Performed By: #### L 502.0250, L501.9985, L501.9520, L100.0100, L501.39087, L501.2450, L500.4050, L506.0400 #### [facility] [address] [place], [address] Platelet mean volume (Bld) [Entitic vol] 9.9 fL Normal 6.2-12.0 [facility] Comment on above: Performed By: #### L 502.0250, L501.9985, L501.9520, L100.0100, L501.40100, L501.2450, L500.4050, L506.0400 #### [facility] [address] [place], [address] Platelets (Bld) [#/Vol] 225 10*3/uL Normal 150-450 [facility] Comment on above: Performed By: #### L 502.0250, L501.9985, L501.9520, L100.0100, L501.97345, L501.2450, L500.4050, L506.0400 #### [facility] [address] [place], [address] RBC (Bld) [#/Vol] 4.66 10*6/uL Normal 4.6-6.2 [facility] Comment on above: Performed By: #### L 502.0250, L501.9985, L501.9520, L100.0100, L501.87836, L501.2450, L500.4050, L506.0400 #### [facility] [address] [place], [address] RDW SD 44.4 fl High 35.1-43.9 [facility] Comment on above: Performed By: #### L 502.0250, L501.9985, L501.9520, L100.0100, L501.90237, L501.2450, L500.4050, L506.0400 #### [facility] [address] [place], [place], [id number] WBC (Bld) [#/Vol] 4.8 10*3/uL Normal 4.4-11.0 [facility] Comment on above: Performed By: #### L 502.0250, L501.9985, L501.9520, L100.0100, L501.24416, L501.2450, L500.4050, L506.0400 #### [facility] [address] [place], [place], [phone] ([phone]) CRPon 05-11-2024 C-REACTIVE PROT < 2.90 Normal 0.0-3.0 [facility] Comment on above: Result Comment: C-Re active Protein (CRP) provides useful information for the diagnosis, therapy and monitoring of inflammatory processes and associated diseases. For the evaluation of Relative Risk for Cardiovascular Disease, a High Sensitivity CRP (HSCRP) should be ordered. Performed By: #### L 502.0250, L501.9985, L501.9520, L100.0100, L501.07522, L501.2450, L500.4050, L506.0400 #### [facility] [address] [place], [address] Erythrocyte Sed Rateon 05-11 SED RATE 10 mm/hr Normal 0-20 [facility] Comment on above: Performed By: #### L 502.0250, L501.9985, L501.9520, L100.0100, L501.15690, L501.2450, L500.4050, L506.0400 #### [facility] [address] [place], [address] Thin prep Papanicolaou smear with manual screeningOrdered By: All Gerber on 09-16-2023 Thin prep Papanicolaou smear with manual screening 118 mg/dL 74-106 [facility] Comment on above: MANAGEMENT OF PATIEN T CARE PER NURSING PROTOCOL Absolute lymphocyte countOrd ered By: Kyleigh Olmstead on 09-09-2023 Lymphocytes Auto (Unsp spec) [#/Vol] 1.99 10*3/uL 0.83-4.51 [facility] Automated lymphocyte count a s percentage of total leukocytesOrdered By: Kyleigh Olmstead on 09-09-2023 Lymphocytes/100 WBC Auto (Unsp spec) 27.5 % 19-41 [facility] Basophil percentageOrdered B y: Kyleigh Olmstead on 09-09-2023 Basophils/100 WBC (Bld) 0.6 % 0-1 [facility] Chloride [Moles/Vol] 104 mmol/L 98-107 [facility] Eosinophils/100 WBC (Bld) 1.5 % 0-5 [facility] Glucose [Mass/Vol] 113 mg/dL 74-106 [facility] Comment on above: Fasting Glucose resu lt from 100 to 125 mg/dL suggests IMPAIRED HOMEOSTASIS per A.D.A. criteria. Hemoglobin (Bld) [Mass/Vol] 15.3 g/dL 13.0-16.5 [facility] Monocytes/100 WBC (Bld) 10.0 % 0-10 [facility] Neutrophils (Bld) [#/Vol] 4.3 10*3/uL 2.0-7.7 [facility] Neutrophils/100 WBC (Bld) 59.8 % 47-70 [facility] Potassium [Moles/Vol] 3.7 mmol/L 3.5-5.1 [facility] Sodium [Moles/Vol] 138 mmol/L 136-145 [facility] WBC (Bld) [#/Vol] 7.2 10*3/uL 4.4-11.0 [facility] Determination of erythrocyte mean corpuscular volume (MCV)Ordered By: Kyleigh Olmstead on 09-09-2023 MCV (RBC) [Entitic vol] 84.0 fL 80-94 [facility] Erythrocyte distribution wid th ratioOrdered By: Kyleigh Olmstead on 09-09-2023 Erythrocyte distribution width (RBC) [Ratio] 14.3 % 11.6-14.6 [facility] Erythrocyte distribution wid th standard deviationOrdered By: Kyleigh Olmstead on 09-09-2023 Erythrocyte distribution width (RBC) [Entitic vol] 43.5 fL 35.1-43.9 [facility] Hematocrit Auto (Bld) [Volum e fraction]Ordered By: Kyleigh Olmstead on 09-09-2023 Hematocrit (Bld) [Volume fraction] 46.6 % 40-54 [facility] Immature granulocytes/100 WB C Auto (Bld)Ordered By: Kyleigh Olmstead on 09-09-2023 Immature granulocytes/100 WBC (Bld) 0.600 % 0.0-0.9 [facility] Comment on above: IG% - Immature Granu locytes (promyelocytes, myelocytes and metamyelocytes) > 1% indicates that a LEFT SHIFT is Present. Laboratory - Chemistry and C hemistry - challengeOrdered By: Kyleigh Olmstead on 09-09-2023 CO2 [Moles/Vol] 31.0 mmol/L 21.0-32.0 [facility] Urea nitrogen/Creatinine [Mass ratio] 12.4 mg/mg 10-20 [facility] - Hematology and Cell countsOrdered By: Kyleigh Olmstead on 09-09-2023 MCH (RBC) [Entitic mass] 27.6 pg 27.0-32.0 [facility] MCHC (RBC) [Mass/Vol] 32.8 g/dL 32-36 [facility] Nucleated RBC/100 WBC (Bld) [Ratio] 0 % 0-5 [facility] Platelet mean volume (Bld) [Entitic vol] 9.4 fL 6.2-12.0 [facility] Platelets (Bld) [#/Vol] 231 10*3/uL 150-450 [facility] No Panel InformationOrdered By: Kyleigh Olmstead on 09-09-2023 Estimated Creatinine Clearance Calc 108.24 ml/min [facility] Estimated GFR (MDRD) Amer 100 mL/min >60 [facility] Comment on above: GFR Calc Estimated GFR (MDRD) Non-Af Amer 83 mL/min >60 [facility] Comment on above: Non- GFR Calc RBC Auto (Bld) [#/Vol]Ordere d By: Kyleigh Olmstead on 09-09-2023 RBC (Bld) [#/Vol] 5.55 10*6/uL 4.6-6.2 [facility] Serum or plasma calcium malissa urement (mass/volume)Ordered By: Kyleigh Olmstead on 09-09-2023 Calcium [Mass/Vol] 9.5 mg/dL 8.5-10.1 [facility] Serum or plasma creatinine m easurement (mass/volume)Ordered By: Kyleigh Olmstead on 09-09-2023 Creatinine [Mass/Vol] 0.96 mg/dL 0.70-1.30 [facility] Comment on above: The validity of the calculated GFR & GFRAA in patients over 70 years has not been determined. Clinical correlation is essential. Serum or plasma thyroid stim ulating hormone (TSH) measurement (units/volume)Ordered By: Luiz Dawson on 09-09-2023 TSH Qn 4.50 uIU/mL 0.358-3.74 [facility] Serum or plasma urea nitroge n measurement (mass/volume)Ordered By: Kyleigh Olmstead on 09-09-2023 Urea nitrogen [Mass/Vol] 12 mg/dL 7-18 [facility] Thin prep Papanicolaou smear with manual screeningOrdered By: Kyleigh Olmstead on 09-09-2023 Thin prep Papanicolaou smear with manual screening 3 5-15 [facility] Whole blood hemoglobin A1c/t otal hemoglobin ratio (mass fraction)Ordered By: Luiz Dawson on 09-09-2023 HbA1c (Bld) [Mass fraction] 6.2 % 3.8-5.6 [facility] Comment on above: Normal < 5.7 % Predi abetic 5.7 - 6.4 % Diabetic >or= 6.5 % Please note range changes. Glucose Glucometer (BldC) [M ass/Vol]Ordered By: All Gerber on 06-21-2023 Glucose [Mass/Vol] 112 mg/dL 74-106 [facility] Comment on above: MANAGEMENT OF PATIEN T CARE PER NURSING PROTOCOL Absolute lymphocyte countOrd ered By: Shane Contreras on 05-24-2023 Lymphocytes Auto (Unsp spec) [#/Vol] 1.17 10*3/uL 0.83-4.51 [facility] Basophil percentageOrdered B y: Shane Contreras on 05-24-2023 Basophils/100 WBC (Bld) 0.4 % 0-1 [facility] Bilirubin [Mass/Vol] 0.50 mg/dL 0.20-1.00 [facility] Comment on above: For patients on eltr ombopag therapy, use of Dimension Christopher TBIL is not recommended. Chloride [Moles/Vol] 106 mmol/L 98-107 [facility] Eosinophils/100 WBC (Bld) 3.3 % 0-5 [facility] Glucose [Mass/Vol] 116 mg/dL 74-106 [facility] Comment on above: Fasting Glucose resu lt from 100 to 125 mg/dL suggests IMPAIRED HOMEOSTASIS per A.D.A. criteria. Neutrophils (Bld) [#/Vol] 2.8 10*3/uL 2.0-7.7 [facility] Neutrophils/100 WBC (Bld) 60.0 % 47-70 [facility] Potassium [Moles/Vol] 3.8 mmol/L 3.5-5.1 [facility] Protein [Mass/Vol] 7.2 g/dL 6.4-8.2 [facility] Sodium [Moles/Vol] 136 mmol/L 136-145 [facility] WBC (Bld) [#/Vol] 4.6 10*3/uL 4.4-11.0 [facility] Blood erythrocytes count (nu mber/volume)Ordered By: Shane Contreras on 05-24-2023 RBC (Bld) [#/Vol] 4.15 10*6/uL 4.6-6.2 [facility] Blood hemoglobin measurement (mass/volume)Ordered By: Shane Contreras on 05-24-2023 Hemoglobin (Bld) [Mass/Vol] 12.3 g/dL 13.0-16.5 [facility] Blood lymphocytes/100 leukoc ytesOrdered By: Shane Contreras on 05-24-2023 Lymphocytes/100 WBC (Bld) 25.4 % 19-41 [facility] Blood monocytes/100 leukocyt esOrdered By: Shane Contreras on 05-24-2023 Monocytes/100 WBC (Bld) 9.8 % 0-10 [facility] Blood platelet mean volumeOr dered By: Shane Contreras on 05-24-2023 Platelet mean volume (Bld) [Entitic vol] 9.8 fL 6.2-12.0 [facility] Determination of erythrocyte mean corpuscular volume (MCV)Ordered By: Shane Contreras on 05-24-2023 MCV (RBC) [Entitic vol] 93.5 fL 80-94 [facility] Hematocrit Auto (Bld) [Volum e fraction]Ordered By: Shane Contreras on 05-24-2023 Hematocrit (Bld) [Volume fraction] 38.8 % 40-54 [facility] Laboratory - Chemistry and C hemistry - challengeOrdered By: Shane Contreras on 05-24-2023 ALP [Catalytic activity/Vol] 47 U/L 45-117 [facility] ALT [Catalytic activity/Vol] 37 U/L 16-61 [facility] CO2 [Moles/Vol] 28.0 mmol/L 21.0-32.0 [facility] Globulin (S) [Mass/Vol] 3.6 g/dL 2.2-4.2 [facility] Urea nitrogen/Creatinine [Mass ratio] 11.7 mg/mg 10-20 [facility] Laboratory - Hematology and Cell countsOrdered By: Shane Contreras on 05-24-2023 Erythrocyte distribution width (RBC) [Entitic vol] 53.9 fL 35.1-43.9 [facility] Erythrocyte distribution width (RBC) [Ratio] 15.8 % 11.6-14.6 [facility] Immature granulocytes/100 WBC (Bld) 1.100 % 0.0-0.9 [facility] Comment on above: IG% - Immature Granu locytes (promyelocytes, myelocytes and metamyelocytes) > 1% indicates that a LEFT SHIFT is Present. MCH (RBC) [Entitic mass] 29.6 pg 27.0-32.0 [facility] Nucleated RBC/100 WBC (Bld) [Ratio] 0 % 0-5 [facility] Auto (RBC) [Mass/Vol]Or dered By: Shane Contreras on 05-24-2023 MCHC (RBC) [Mass/Vol] 31.7 g/dL 32-36 [facility] No Panel InformationOrdered By: Shane Contreras on 05-24-2023 Estimated GFR (MDRD) Amer 103 mL/min >60 [facility] Comment on above: GFR Calc Estimated GFR (MDRD) Non-Af Amer 85 mL/min >60 [facility] Comment on above: Non- GFR Calc Platelets bldOrdered By: Teressa Contreras on 05-24-2023 Platelets (Bld) [#/Vol] 243 10*3/uL 150-450 [facility] Serum or plasma albumin malissa urement (mass/volume)Ordered By: Shane Contreras on 05-24-2023 Albumin [Mass/Vol] 3.6 g/dL 3.2-5.0 [facility] Serum or plasma albumin/glob ulin mass ratioOrdered By: Shane Contreras on 05-24-2023 Albumin/Globulin [Mass ratio] 1.0 {ratio} 0.9-2.4 [facility] Serum or plasma calcium malissa urement (mass/volume)Ordered By: Shane Contreras on 05-24-2023 Calcium [Mass/Vol] 8.8 mg/dL 8.5-10.1 [facility] Serum or plasma creatinine m easurement (mass/volume)Ordered By: Shane Contreras on 05-24-2023 Creatinine [Mass/Vol] 0.94 mg/dL 0.70-1.30 [facility] Comment on above: The validity of the calculated GFR & GFRAA in patients over 70 years has not been determined. Clinical correlation is essential. Serum or plasma urea nitroge n measurement (mass/volume)Ordered By: Shane Contreras on 05-24-2023 Urea nitrogen [Mass/Vol] 11 mg/dL 7-18 [facility] Thin prep Papanicolaou smear with manual screeningOrdered By: Shane Contreras on 05-24-2023 Thin prep Papanicolaou smear with manual screening 26 U/L 15-37 [facility] Thin prep Papanicolaou smear with manual screening 2 5-15 [facility] Absolute lymphocyte countOrd ered By: Todd Conner on 05-11-2023 Lymphocytes Auto (Unsp spec) [#/Vol] 1.24 10*3/uL 0.83-4.51 [facility] Basophil percentageOrdered B y: Todd Conner on 05-11-2023 Basophils/100 WBC (Bld) 0.4 % 0-1 [facility] Chloride [Moles/Vol] 109 mmol/L 98-107 [facility] Eosinophils/100 WBC (Bld) 3.5 % 0-5 [facility] Glucose [Mass/Vol] 115 mg/dL 74-106 [facility] Comment on above: Fasting Glucose resu lt from 100 to 125 mg/dL suggests IMPAIRED HOMEOSTASIS per A.D.A. criteria. Neutrophils (Bld) [#/Vol] 2.6 10*3/uL 2.0-7.7 [facility] Neutrophils/100 WBC (Bld) 57.2 % 47-70 [facility] Potassium [Moles/Vol] 3.7 mmol/L 3.5-5.1 [facility] Sodium [Moles/Vol] 140 mmol/L 136-145 [facility] WBC (Bld) [#/Vol] 4.6 10*3/uL 4.4-11.0 [facility] Blood erythrocytes count (nu mber/volume)Ordered By: Todd Conner on 05-11-2023 RBC (Bld) [#/Vol] 3.68 10*6/uL 4.6-6.2 [facility] Blood hemoglobin measurement (mass/volume)Ordered By: Todd Conner on 05-11-2023 Hemoglobin (Bld) [Mass/Vol] 10.7 g/dL 13.0-16.5 [facility] Blood lymphocytes/100 leukoc ytesOrdered By: Todd Conner on 05-11-2023 Lymphocytes/100 WBC (Bld) 26.9 % 19-41 [facility] Blood monocytes/100 leukocyt esOrdered By: Todd Conner on 05-11-2023 Monocytes/100 WBC (Bld) 11.1 % 0-10 [facility] Blood platelet mean volumeOr dered By: Todd Conner on 05-11-2023 Platelet mean volume (Bld) [Entitic vol] 9.6 fL 6.2-12.0 [facility] Determination of erythrocyte mean corpuscular volume (MCV)Ordered By: Todd Conner on 05-11-2023 MCV (RBC) [Entitic vol] 91.0 fL 80-94 [facility] Hematocrit Auto (Bld) [Volum e fraction]Ordered By: Todd Conner on 05-11-2023 Hematocrit (Bld) [Volume fraction] 33.5 % 40-54 [facility] Laboratory - Chemistry and C hemistry - challengeOrdered By: Todd Conner on 05-11-2023 CO2 [Moles/Vol] 27.0 mmol/L 21.0-32.0 [facility] Urea nitrogen/Creatinine [Mass ratio] 10.3 mg/mg 10-20 [facility] Laboratory - Hematology and Cell countsOrdered By: Todd Conner on 05-11-2023 Erythrocyte distribution width (RBC) [Entitic vol] 46.8 fL 35.1-43.9 [facility] Erythrocyte distribution width (RBC) [Ratio] 14.0 % 11.6-14.6 [facility] Immature granulocytes/100 WBC (Bld) 0.900 % 0.0-0.9 [facility] Comment on above: IG% - Immature Granu locytes (promyelocytes, myelocytes and metamyelocytes) > 1% indicates that a LEFT SHIFT is Present. MCH (RBC) [Entitic mass] 29.1 pg 27.0-32.0 [facility] Nucleated RBC/100 WBC (Bld) [Ratio] 0 % 0-5 [facility] MCHC Auto (RBC) [Mass/Vol]Or dered By: Todd Conner on 05-11-2023 MCHC (RBC) [Mass/Vol] 31.9 g/dL 32-36 [facility] No Panel InformationOrdered By: Todd Conner on 05-11-2023 Estimated Creatinine Clearance Calc 91.58 ml/min [facility] Estimated GFR (MDRD) Amer 128 mL/min >60 [facility] Comment on above: GFR Calc Estimated GFR (MDRD) Non-Af Amer 106 mL/min >60 [facility] Comment on above: Non- GFR Calc Platelets bldOrdered By: Shani Conner on 05-11-2023 Platelets (Bld) [#/Vol] 246 10*3/uL 150-450 [facility] Serum or plasma calcium malissa urement (mass/volume)Ordered By: Todd Conner on 05-11-2023 Calcium [Mass/Vol] 8.2 mg/dL 8.5-10.1 [facility] Serum or plasma creatinine m easurement (mass/volume)Ordered By: Todd Conner on 05-11-2023 Creatinine [Mass/Vol] 0.78 mg/dL 0.70-1.30 [facility] Comment on above: The validity of the calculated GFR & GFRAA in patients over 70 years has not been determined. Clinical correlation is essential. Serum or plasma urea nitroge n measurement (mass/volume)Ordered By: Todd Conner on 05-11-2023 Urea nitrogen [Mass/Vol] 8 mg/dL 7-18 [facility] Thin prep Papanicolaou smear with manual screeningOrdered By: Todd Conner on 05-11-2023 Thin prep Papanicolaou smear with manual screening 4 5-15 [facility] Basophil percentageOrdered B y: Woodrow Fox on 05-10-2023 Bilirubin [Mass/Vol] 1.10 mg/dL 0.20-1.00 [facility] Comment on above: For patients on eltr ombopag therapy, use of Dimension Christopher TBIL is not recommended. Protein [Mass/Vol] 6.2 g/dL 6.4-8.2 [facility] Glucose Glucometer (BldC) [M ass/Vol]Ordered By: Todd Conner on 05-10-2023 Glucose [Mass/Vol] 134 mg/dL 74-106 [facility] Comment on above: MANAGEMENT OF PATIEN T CARE PER NURSING PROTOCOL Laboratory - Chemistry and C hemistry - challengeOrdered By: Woodrow Fox on 05-10-2023 ALP [Catalytic activity/Vol] 41 U/L 45-117 [facility] ALT [Catalytic activity/Vol] 18 U/L 16-61 [facility] Globulin (S) [Mass/Vol] 3.4 g/dL 2.2-4.2 [facility] Serum or plasma albumin malissa urement (mass/volume)Ordered By: Woodrow Ruddy on 05-10-2023 Albumin [Mass/Vol] 2.8 g/dL 3.2-5.0 [facility] Serum or plasma albumin/glob ulin mass ratioOrdered By: Woodrow hal on 05-10-2023 Albumin/Globulin [Mass ratio] 0.8 {ratio} 0.9-2.4 [facility] Thin prep Papanicolaou smear with manual screeningOrdered By: Woodrow Fox on 05-10-2023 Thin prep Papanicolaou smear with manual screening 7 U/L 15-37 [facility] Absolute lymphocyte countOrd ered By: Calvin Megan on 05-09-2023 Lymphocytes Auto (Unsp spec) [#/Vol] 1.61 10*3/uL 0.83-4.51 [facility] Basophil percentageOrdered B y: Calvin Guzman on 05-09-2023 Basophils/100 WBC (Bld) 0.3 % 0-1 [facility] Bilirubin [Mass/Vol] 1.20 mg/dL 0.20-1.00 [facility] Comment on above: For patients on eltr ombopag therapy, use of Dimension Christopher TBIL is not recommended. Chloride [Moles/Vol] 106 mmol/L 98-107 [facility] Eosinophils/100 WBC (Bld) 0.6 % 0-5 [facility] Glucose [Mass/Vol] 117 mg/dL 74-106 [facility] Comment on above: Fasting Glucose resu lt from 100 to 125 mg/dL suggests IMPAIRED HOMEOSTASIS per A.D.A. criteria. Neutrophils (Bld) [#/Vol] 7.6 10*3/uL 2.0-7.7 [facility] Neutrophils/100 WBC (Bld) 73.6 % 47-70 [facility] Potassium [Moles/Vol] 3.6 mmol/L 3.5-5.1 [facility] Protein [Mass/Vol] 7.3 g/dL 6.4-8.2 [facility] Sodium [Moles/Vol] 142 mmol/L 136-145 [facility] WBC (Bld) [#/Vol] 10.3 10*3/uL 4.4-11.0 [facility] Blood erythrocytes count (nu mber/volume)Ordered By: Calvin Guzman on 05-09-2023 RBC (Bld) [#/Vol] 5.04 10*6/uL 4.6-6.2 [facility] Blood hemoglobin measurement (mass/volume)Ordered By: Calvin Guzman on 05-09-2023 Hemoglobin (Bld) [Mass/Vol] 14.7 g/dL 13.0-16.5 [facility] Blood lymphocytes/100 leukoc ytesOrdered By: Calvin Guzman on 05-09-2023 Lymphocytes/100 WBC (Bld) 15.6 % 19-41 [facility] Blood monocytes/100 leukocyt esOrdered By: Calvin Guzman on 05-09-2023 Monocytes/100 WBC (Bld) 9.5 % 0-10 [facility] Blood platelet mean volumeOr dered By: Calvin Guzman on 05-09-2023 Platelet mean volume (Bld) [Entitic vol] 9.2 fL 6.2-12.0 [facility] Clostridium difficile detect ion by polymerase chain reactionOrdered By: Calvin Guzman on 05-09-2023 C. difficile DNA FERNANDO+probe Ql (Unsp spec) [facility] C. difficile DNA FERNANDO+probe Ql (Unsp spec) [facility] Determination of erythrocyte mean corpuscular volume (MCV)Ordered By: Calvin Guzman on 05-09-2023 MCV (RBC) [Entitic vol] 88.3 fL 80-94 [facility] Hematocrit Auto (Bld) [Volum e fraction]Ordered By: Calvin Guzman on 05-09-2023 Hematocrit (Bld) [Volume fraction] 44.5 % 40-54 [facility] Laboratory - Chemistry and C hemistry - challengeOrdered By: Calvin Guzman on 05-09-2023 ALP [Catalytic activity/Vol] 52 U/L 45-117 [facility] ALT [Catalytic activity/Vol] 26 U/L 16-61 [facility] CO2 [Moles/Vol] 29.0 mmol/L 21.0-32.0 [facility] Globulin (S) [Mass/Vol] 3.6 g/dL 2.2-4.2 [facility] Urea nitrogen/Creatinine [Mass ratio] 12.5 mg/mg 10-20 [facility] Laboratory - Hematology and Cell countsOrdered By: Calvin Guzman on 05-09-2023 Erythrocyte distribution width (RBC) [Entitic vol] 45.1 fL 35.1-43.9 [facility] Erythrocyte distribution width (RBC) [Ratio] 14.0 % 11.6-14.6 [facility] Immature granulocytes/100 WBC (Bld) 0.400 % 0.0-0.9 [facility] Comment on above: IG% - Immature Granu locytes (promyelocytes, myelocytes and metamyelocytes) > 1% indicates that a LEFT SHIFT is Present. MCH (RBC) [Entitic mass] 29.2 pg 27.0-32.0 [facility] Nucleated RBC/100 WBC (Bld) [Ratio] 0 % 0-5 [facility] MCHC Auto (RBC) [Mass/Vol]Or dered By: Calvin Guzman on 05-09-2023 MCHC (RBC) [Mass/Vol] 33.0 g/dL 32-36 [facility] No Panel InformationOrdered By: Woodrow Fox on 05-09-2023 Giardia Antigen (TU) [facility] No Panel InformationOrdered By: Calvin Guzman on 05-09-2023 Estimated Creatinine Clearance Calc 104.06 ml/min [facility] Estimated GFR (MDRD) Amer 111 mL/min >60 [facility] Comment on above: GFR Calc Estimated GFR (MDRD) Non-Af Amer 92 mL/min >60 [facility] Comment on above: Non- GFR Calc Ova and parasitesOrdered By: Woodrow Fox on 05-09-2023 Ova and parasites identified LM Nom (Unsp spec) [facility] Platelets bldOrdered By: Tara Guzman on 05-09-2023 Platelets (Bld) [#/Vol] 329 10*3/uL 150-450 [facility] Serum or plasma albumin malissa urement (mass/volume)Ordered By: Calvin Guzman on 05-09-2023 Albumin [Mass/Vol] 3.7 g/dL 3.2-5.0 [facility] Serum or plasma albumin/glob ulin mass ratioOrdered By: Calvin Guzman on 05-09-2023 Albumin/Globulin [Mass ratio] 1.0 {ratio} 0.9-2.4 [facility] Serum or plasma calcium malissa urement (mass/volume)Ordered By: Calvin Guzman on 05-09-2023 Calcium [Mass/Vol] 9.1 mg/dL 8.5-10.1 [facility] Serum or plasma creatinine m easurement (mass/volume)Ordered By: Calvin Guzman on 05-09-2023 Creatinine [Mass/Vol] 0.88 mg/dL 0.70-1.30 [facility] Comment on above: The validity of the calculated GFR & GFRAA in patients over 70 years has not been determined. Clinical correlation is essential. Serum or plasma urea nitroge n measurement (mass/volume)Ordered By: Calvin Guzman on 05-09-2023 Urea nitrogen [Mass/Vol] 11 mg/dL 7-18 [facility] Thin prep Papanicolaou smear with manual screeningOrdered By: Calvin Guzman on 05-09-2023 Thin prep Papanicolaou smear with manual screening 13 U/L 15-37 [facility] Thin prep Papanicolaou smear with manual screening 7 5-15 [facility] Absolute lymphocyte countOrd ered By: Dr. Contreras on 12-26-2022 Lymphocytes Auto (Unsp spec) [#/Vol] 1.23 10*3/uL 0.83-4.51 [facility] Basophil percentageOrdered B y: Dr. Contreras on 12-26-2022 Basophils/100 WBC (Bld) 0.7 % 0-1 [facility] Chloride [Moles/Vol] 100 mmol/L 98-107 [facility] Eosinophils/100 WBC (Bld) 0.5 % 0-5 [facility] Glucose [Mass/Vol] 109 mg/dL 74-106 [facility] Comment on above: Fasting Glucose resu lt from 100 to 125 mg/dL suggests IMPAIRED HOMEOSTASIS per A.D.A. criteria. Neutrophils (Bld) [#/Vol] 3.9 10*3/uL 2.0-7.7 [facility] Neutrophils/100 WBC (Bld) 67.2 % 47-70 [facility] Potassium [Moles/Vol] 4.1 mmol/L 3.5-5.1 [facility] Comment on above: Slight Hemolysis, Re sult may be falsely increased. Sodium [Moles/Vol] 135 mmol/L 136-145 [facility] WBC (Bld) [#/Vol] 5.8 10*3/uL 4.4-11.0 [facility] Blood erythrocytes count (nu mber/volume)Ordered By: Dr. Contreras on 12-26-2022 RBC (Bld) [#/Vol] 5.39 10*6/uL 4.6-6.2 [facility] Blood hemoglobin measurement (mass/volume)Ordered By: Dr. Contreras on 12-26-2022 Hemoglobin (Bld) [Mass/Vol] 16.1 g/dL 13.0-16.5 [facility] Blood lymphocytes/100 leukoc ytesOrdered By: Dr. Contreras on 12-26-2022 Lymphocytes/100 WBC (Bld) 21.1 % 19-41 [facility] Blood monocytes/100 leukocyt esOrdered By: Dr. Contreras on 12-26-2022 Monocytes/100 WBC (Bld) 9.8 % 0-10 [facility] Blood platelet mean volumeOr dered By: Dr. Contreras on 12-26-2022 Platelet mean volume (Bld) [Entitic vol] 9.7 fL 6.2-12.0 [facility] Determination of erythrocyte mean corpuscular volume (MCV)Ordered By: Dr. Contreras on 12-26-2022 MCV (RBC) [Entitic vol] 92.2 fL 80-94 [facility] Hematocrit Auto (Bld) [Volum e fraction]Ordered By: Dr. Contreras on 12-26-2022 Hematocrit (Bld) [Volume fraction] 49.7 % 40-54 [facility] Laboratory - Chemistry and C hemistry - challengeOrdered By: Dr. Contreras on 12-26-2022 CO2 [Moles/Vol] 29.0 mmol/L 21.0-32.0 [facility] Free T4 [Mass/Vol] 1.19 ng/dL 0.76-1.46 [facility] Magnesium [Mass/Vol] 1.8 mg/dL 1.6-2.6 [facility] Comment on above: Slight Hemolysis, Re sult may be falsely increased. Urea nitrogen/Creatinine [Mass ratio] 12.9 mg/mg 10-20 [facility] Laboratory - Hematology and Cell countsOrdered By: Dr. Contreras on 12-26-2022 Erythrocyte distribution width (RBC) [Entitic vol] 46.5 fL 35.1-43.9 [facility] Erythrocyte distribution width (RBC) [Ratio] 13.6 % 11.6-14.6 [facility] Immature granulocytes/100 WBC (Bld) 0.700 % 0.0-0.9 [facility] Comment on above: IG% - Immature Granu locytes (promyelocytes, myelocytes and metamyelocytes) > 1% indicates that a LEFT SHIFT is Present. MCH (RBC) [Entitic mass] 29.9 pg 27.0-32.0 [facility] Nucleated RBC/100 WBC (Bld) [Ratio] 0 % 0-5 [facility] MCHC Auto (RBC) [Mass/Vol]Or dered By: Dr. Contreras on 12-26-2022 MCHC (RBC) [Mass/Vol] 32.4 g/dL 32-36 [facility] No Panel InformationOrdered By: Dr. Contreras on 12-26-2022 Estimated GFR (MDRD) Amer 95 mL/min >60 [facility] Comment on above: GFR Calc Estimated GFR (MDRD) Non-Af Amer 79 mL/min >60 [facility] Comment on above: Non- GFR Calc Free Triiodothyronine (T3) pg/dL 3.2 pg/mL 2.18-3.98 [facility] Thyroid Stimulating Hormone (TSH) 1.58 uIU/mL 0.358-3.74 [facility] Platelets bldOrdered By: Dr. Contreras on 12-26-2022 Platelets (Bld) [#/Vol] 239 10*3/uL 150-450 [facility] Serum or plasma calcium malissa urement (mass/volume)Ordered By: Dr. Contreras on 12-26-2022 Calcium [Mass/Vol] 9.9 mg/dL 8.5-10.1 [facility] Serum or plasma creatinine m easurement (mass/volume)Ordered By: Dr. Contreras on 12-26-2022 Creatinine [Mass/Vol] 1.01 mg/dL 0.70-1.30 [facility] Comment on above: The validity of the calculated GFR & GFRAA in patients over 70 years has not been determined. Clinical correlation is essential. Serum or plasma urea nitroge n measurement (mass/volume)Ordered By: Dr. Contreras on 12-26-2022 Urea nitrogen [Mass/Vol] 13 mg/dL 7-18 [facility] Thin prep Papanicolaou smear with manual screeningOrdered By: Dr. Contreras on 12-26-2022 Thin prep Papanicolaou smear with manual screening 6 5-15 [facility] Absolute lymphocyte countOrd ered By: Dr. Fine on 12-09-2022 Lymphocytes Auto (Unsp spec) [#/Vol] 1.87 10*3/uL 0.83-4.51 [facility] Basophil percentageOrdered B y: Dr. Fine on 12-09-2022 Basophils/100 WBC (Bld) 0.6 % 0-1 [facility] Eosinophils/100 WBC (Bld) 1.4 % 0-5 [facility] Neutrophils (Bld) [#/Vol] 4.2 10*3/uL 2.0-7.7 [facility] Neutrophils/100 WBC (Bld) 59.2 % 47-70 [facility] WBC (Bld) [#/Vol] 7.1 10*3/uL 4.4-11.0 [facility] Basophil percentageOrdered B y: Payton Mayorga on 12-09-2022 Bilirubin [Mass/Vol] 0.40 mg/dL 0.20-1.00 [facility] Comment on above: For patients on eltr ombopag therapy, use of Dimension Christopher TBIL is not recommended. Chloride [Moles/Vol] 107 mmol/L 98-107 [facility] Glucose [Mass/Vol] 137 mg/dL 74-106 [facility] Comment on above: Fasting Glucose resu lt greater than or equal to 126 mg/dL suggests DIABETES MELLITUS per A.D.A. criteria. Potassium [Moles/Vol] 3.8 mmol/L 3.5-5.1 [facility] Protein [Mass/Vol] 7.4 g/dL 6.4-8.2 [facility] Sodium [Moles/Vol] 141 mmol/L 136-145 [facility] Blood erythrocytes count (nu mber/volume)Ordered By: Dr. Fine on 12-09-2022 RBC (Bld) [#/Vol] 4.85 10*6/uL 4.6-6.2 [facility] Blood hemoglobin measurement (mass/volume)Ordered By: Dr. Fine on 12-09-2022 Hemoglobin (Bld) [Mass/Vol] 14.5 g/dL 13.0-16.5 [facility] Blood lymphocytes/100 leukoc ytesOrdered By: Dr. Fine on 12-09-2022 Lymphocytes/100 WBC (Bld) 26.4 % 19-41 [facility] Blood monocytes/100 leukocyt esOrdered By: Dr. Fine on 12-09-2022 Monocytes/100 WBC (Bld) 11.8 % 0-10 [facility] Blood platelet mean volumeOr dered By: Dr. Fine on 12-09-2022 Platelet mean volume (Bld) [Entitic vol] 9.7 fL 6.2-12.0 [facility] Determination of erythrocyte mean corpuscular volume (MCV)Ordered By: Dr. Fine on 12-09-2022 MCV (RBC) [Entitic vol] 89.9 fL 80-94 [facility] Hematocrit Auto (Bld) [Volum e fraction]Ordered By: Dr. Fine on 12-09-2022 Hematocrit (Bld) [Volume fraction] 43.6 % 40-54 [facility] Laboratory - Chemistry and C hemistry - challengeOrdered By: Payton Mayorga on 12-09-2022 ALP [Catalytic activity/Vol] 70 U/L 45-117 [facility] ALT [Catalytic activity/Vol] 27 U/L 16-61 [facility] CO2 [Moles/Vol] 27.0 mmol/L 21.0-32.0 [facility] Globulin (S) [Mass/Vol] 3.6 g/dL 2.2-4.2 [facility] Urea nitrogen/Creatinine [Mass ratio] 10.8 mg/mg 10-20 [facility] Laboratory - Hematology and Cell countsOrdered By: Dr. Fine on 12-09-2022 Erythrocyte distribution width (RBC) [Entitic vol] 44.3 fL 35.1-43.9 [facility] Erythrocyte distribution width (RBC) [Ratio] 13.3 % 11.6-14.6 [facility] Immature granulocytes/100 WBC (Bld) 0.600 % 0.0-0.9 [facility] Comment on above: IG% - Immature Granu locytes (promyelocytes, myelocytes and metamyelocytes) > 1% indicates that a LEFT SHIFT is Present. MCH (RBC) [Entitic mass] 29.9 pg 27.0-32.0 [facility] Nucleated RBC/100 WBC (Bld) [Ratio] 0 % 0-5 [facility] MCHC Auto (RBC) [Mass/Vol]Or dered By: Dr. Fine on 12-09-2022 MCHC (RBC) [Mass/Vol] 33.3 g/dL 32-36 [facility] No Panel InformationOrdered By: Payton Mayorga on 12-09-2022 Troponin I High Sensitivity 6 pg/mL 3.0-78.0 [facility] Comment on above: Please Note: New [place] t Units and Gender Specific Reference Ranges. For more information see Policy Stat Procedure Christopher High Sensitivity Troponin (TNIH) and attachments. D-Dimer Quantitative (PE/DVT) 0.29 FEU/ug/m 0.27-0.49 [facility] Comment on above: NORMAL D-Dimer level (<0.50) indicates no DVT or PE. Estimated Creatinine Clearance Calc 89.78 ml/min [facility] Estimated GFR (MDRD) Amer 94 mL/min >60 [facility] Comment on above: GFR Calc Estimated GFR (MDRD) Non-Af Amer 78 mL/min >60 [facility] Comment on above: Non- GFR Calc Platelets bldOrdered By: Dr. Fine on 12-09-2022 Platelets (Bld) [#/Vol] 223 10*3/uL 150-450 [facility] Serum or plasma albumin malissa urement (mass/volume)Ordered By: Payton Mayorga on 12-09-2022 Albumin [Mass/Vol] 3.8 g/dL 3.2-5.0 [facility] Serum or plasma albumin/glob ulin mass ratioOrdered By: Payton Mayorga on 12-09-2022 Albumin/Globulin [Mass ratio] 1.1 {ratio} 0.9-2.4 [facility] Serum or plasma calcium malissa urement (mass/volume)Ordered By: Payton Mayorga on 12-09-2022 Calcium [Mass/Vol] 8.7 mg/dL 8.5-10.1 [facility] Serum or plasma creatinine m easurement (mass/volume)Ordered By: Payton Mayorga on 12-09-2022 Creatinine [Mass/Vol] 1.02 mg/dL 0.70-1.30 [facility] Comment on above: The validity of the calculated GFR & GFRAA in patients over 70 years has not been determined. Clinical correlation is essential. Serum or plasma urea nitroge n measurement (mass/volume)Ordered By: Payton Mayorga on 12-09-2022 Urea nitrogen [Mass/Vol] 11 mg/dL 7-18 [facility] Thin prep Papanicolaou smear with manual screeningOrdered By: Payton Mayorga on 12-09-2022 Thin prep Papanicolaou smear with manual screening 16 U/L 15-37 [facility] Thin prep Papanicolaou smear with manual screening 7 5-15 [facility] Basophil percentageOrdered B y: Dr. Stephens on 11-19-2022 Bilirubin [Mass/Vol] 0.90 mg/dL 0.20-1.00 [facility] Comment on above: For patients on eltr ombopag therapy, use of Dimension Christopher TBIL is not recommended. Chloride [Moles/Vol] 100 mmol/L 98-107 [facility] Glucose [Mass/Vol] 105 mg/dL 74-106 [facility] Comment on above: Fasting Glucose resu lt from 100 to 125 mg/dL suggests IMPAIRED HOMEOSTASIS per A.D.A. criteria. Potassium [Moles/Vol] 3.7 mmol/L 3.5-5.1 [facility] Protein [Mass/Vol] 7.5 g/dL 6.4-8.2 [facility] Sodium [Moles/Vol] 135 mmol/L 136-145 [facility] WBC (Bld) [#/Vol] 6.0 10*3/uL 4.4-11.0 [facility] Blood erythrocytes count (nu mber/volume)Ordered By: Dr. Stephens on 11-19-2022 RBC (Bld) [#/Vol] 5.27 10*6/uL 4.6-6.2 [facility] Blood hemoglobin measurement (mass/volume)Ordered By: Dr. Stephens on 11-19-2022 Hemoglobin (Bld) [Mass/Vol] 15.5 g/dL 13.0-16.5 [facility] Blood platelet mean volumeOr dered By: Dr. Stephens on 11-19-2022 Platelet mean volume (Bld) [Entitic vol] 10.2 fL 6.2-12.0 [facility] Determination of erythrocyte mean corpuscular volume (MCV)Ordered By: Dr. Stephens on 11-19-2022 MCV (RBC) [Entitic vol] 90.1 fL 80-94 [facility] Erythrocyte sedimentation ra teOrdered By: Dr. Stephens on 11-19-2022 ESR (Bld) [Velocity] 14 mm/h 0-20 [facility] Hematocrit Auto (Bld) [Volum e fraction]Ordered By: Dr. Stephens on 11-19-2022 Hematocrit (Bld) [Volume fraction] 47.5 % 40-54 [facility] Laboratory - Chemistry and C hemistry - challengeOrdered By: Dr. Stephens on 11-19-2022 ALP [Catalytic activity/Vol] 43 U/L 45-117 [facility] ALT [Catalytic activity/Vol] 33 U/L 16-61 [facility] CO2 [Moles/Vol] 29.0 mmol/L 21.0-32.0 [facility] Globulin (S) [Mass/Vol] 3.4 g/dL 2.2-4.2 [facility] Urea nitrogen/Creatinine [Mass ratio] 13.1 mg/mg 10-20 [facility] Laboratory - Hematology and Cell countsOrdered By: Dr. Stephens on 11-19-2022 Erythrocyte distribution width (RBC) [Entitic vol] 43.0 fL 35.1-43.9 [facility] Erythrocyte distribution width (RBC) [Ratio] 13.1 % 11.6-14.6 [facility] MCH (RBC) [Entitic mass] 29.4 pg 27.0-32.0 [facility] MCHC Auto (RBC) [Mass/Vol]Or dered By: Dr. Stephens on 11-19-2022 MCHC (RBC) [Mass/Vol] 32.6 g/dL 32-36 [facility] No Panel InformationOrdered By: Dr. Stephens on 11-19-2022 Estimated GFR (MDRD) Amer 97 mL/min >60 [facility] Comment on above: GFR Calc Estimated GFR (MDRD) Non-Af Amer 80 mL/min >60 [facility] Comment on above: Non- GFR Calc Platelets bldOrdered By: Dr. Stephens on 11-19-2022 Platelets (Bld) [#/Vol] 256 10*3/uL 150-450 [facility] Serum or plasma C reactive p rotein measurement (mass/volume)Ordered By: Dr. Stephens on 11-19-2022 CRP [Mass/Vol] mg/L 0.0-3.0 [facility] Comment on above: C-Reactive Protein ( CRP) provides useful information for thediagnosis, therapy and monitoring of inflammatory processesand associated diseases. For the evaluation of Relative Riskfor Cardiovascular Disease, a High Sensitivity CRP (HSCRP)should be ordered. Serum or plasma albumin malissa urement (mass/volume)Ordered By: Dr. Stephens on 11-19-2022 Albumin [Mass/Vol] 4.1 g/dL 3.2-5.0 [facility] Serum or plasma albumin/glob ulin mass ratioOrdered By: Dr. Stephens on 11-19-2022 Albumin/Globulin [Mass ratio] 1.2 {ratio} 0.9-2.4 [facility] Serum or plasma calcium malissa urement (mass/volume)Ordered By: Dr. Stephens on 11-19-2022 Calcium [Mass/Vol] 9.1 mg/dL 8.5-10.1 [facility] Serum or plasma creatinine m easurement (mass/volume)Ordered By: Dr. Stephens on 11-19-2022 Creatinine [Mass/Vol] 1.00 mg/dL 0.70-1.30 [facility] Comment on above: The validity of the calculated GFR & GFRAA in patients over 70 years has not been determined. Clinical correlation is essential. Serum or plasma urea nitroge n measurement (mass/volume)Ordered By: Dr. Stephens on 11-19-2022 Urea nitrogen [Mass/Vol] 13 mg/dL 7-18 [facility] Thin prep Papanicolaou smear with manual screeningOrdered By: Dr. Stephens on 11-19-2022 Thin prep Papanicolaou smear with manual screening 22 U/L 15-37 [facility] Thin prep Papanicolaou smear with manual screening 6 5-15 [facility] Basophil percentageOrdered B y: Dr. Contreras on 11-09-2022 Chloride [Moles/Vol] 106 mmol/L 98-107 [facility] Cholesterol [Mass/Vol] 107 mg/dL <200 [facility] Comment on above: <200 mg/dL Desirable 200-240 mg/dL Borderline >240 mg/dL High Risk Glucose [Mass/Vol] 117 mg/dL 74-106 [facility] Comment on above: Fasting Glucose resu lt from 100 to 125 mg/dL suggests IMPAIRED HOMEOSTASIS per A.D.A. criteria. Potassium [Moles/Vol] 3.8 mmol/L 3.5-5.1 [facility] Sodium [Moles/Vol] 136 mmol/L 136-145 [facility] Triglyceride [Mass/Vol] 129 mg/dL <199 [facility] Comment on above: The drugs N-Acetylcy steine and Metamizole may falsely depress this assay.Serum Triglycerides Reference Interval Normal <150 mg/dL Borderline high 150 - 199 mg/dL High 200 - 499 mg/dL Very High > or = 500 mg/dL Laboratory - Chemistry and C hemistry - challengeOrdered By: Dr. Contreras on 11-09-2022 CO2 [Moles/Vol] 25.0 mmol/L 21.0-32.0 [facility] Free T4 [Mass/Vol] 1.09 ng/dL 0.76-1.46 [facility] Urea nitrogen/Creatinine [Mass ratio] 16.8 mg/mg 10-20 [facility] No Panel InformationOrdered By: Dr. Contreras on 11-09-2022 Estimated GFR (MDRD) Amer 101 mL/min >60 [facility] Comment on above: GFR Calc Estimated GFR (MDRD) Non-Af Amer 84 mL/min >60 [facility] Comment on above: Non- GFR Calc Free Triiodothyronine (T3) pg/dL 3.0 pg/mL 2.18-3.98 [facility] Thyroid Stimulating Hormone (TSH) 1.85 uIU/mL 0.358-3.74 [facility] Serum or plasma calcium malissa urement (mass/volume)Ordered By: Dr. Contreras on 11-09-2022 Calcium [Mass/Vol] 9.2 mg/dL 8.5-10.1 [facility] Serum or plasma cholesterol in HDL measurement (mass/volume)Ordered By: Dr. Contreras on 11-09-2022 Cholesterol in HDL [Mass/Vol] 45 mg/dL >40 [facility] Comment on above: The drugs N-Acetylcy steine and Metamizole may falsely depress this assay. Reference Range HDL <40 mg/dL Low HDL Cholesterol HDL >or= 60 mg/dL High HDL Cholesterol Serum or plasma cholesterol in VLDL measurement (mass/volume)Ordered By: Dr. Contreras on 11-09-2022 Cholesterol in VLDL [Mass/Vol] 26 mg/dL 5-40 [facility] Serum or plasma creatinine m easurement (mass/volume)Ordered By: Dr. Contreras on 11-09-2022 Creatinine [Mass/Vol] 0.96 mg/dL 0.70-1.30 [facility] Comment on above: The validity of the calculated GFR & GFRAA in patients over 70 years has not been determined. Clinical correlation is essential. Serum or plasma low density lipoprotein (LDL) cholesterol measurement (mass/volume)Ordered By: Dr. Contreras on 11-09-2022 Cholesterol in LDL [Mass/Vol] 36 mg/dL 0-130 [facility] Serum or plasma urea nitroge n measurement (mass/volume)Ordered By: Dr. Contreras on 11-09-2022 Urea nitrogen [Mass/Vol] 16 mg/dL 7-18 [facility] Thin prep Papanicolaou smear with manual screeningOrdered By: Dr. Contreras on 11-09-2022 Thin prep Papanicolaou smear with manual screening 5 5-15 [facility] No Panel InformationOrdered By: ELVIRA Pacheco on 09-24-2022 Prostate Specific Antigen Screen 0.71 ng/mL 0.00-4.00 [facility] Comment on above: This test was perfor med using the TPSA assay method for the[employer] chemistry system. Values obtained with differentassay methods cannot be used interchangably.When changing PSA assays in the course of monitoring apatient, additional sequential testing should be carriedout to confirm baseline values. Serum or plasma uric acid me asurement (mass/volume)Ordered By: Dr. Contreras on 06-27-2022 Urate [Mass/Vol] 5.3 mg/dL 3.5-7.2 [facility] Comment on above: The drugs N-Acetylcy steine and Metamizole may falsely depress this assay. Laboratory - Microbiology an d Antimicrobial susceptibilityon 06-13-2022 SARS-CoV-2 (COVID-19) RNA FERNANDO+probe Ql (Unsp spec) Detected [facility] No Panel Informationon 06-13 POC Nasal Swab Influenza A,B Not detected [facility] POC Nasal Swab RSV Not detected [facility] Basophil percentageon 2021 Chloride [Moles/Vol] 102 mmol/L 98-107 [facility] Work Phone: Cholesterol [Mass/Vol] 200 mg/dL <200 [facility] Work Phone: Comment on above: <200 mg/dL Desirable 200-240 mg/dL Borderline >240 mg/dL High Risk Glucose [Mass/Vol] 99 mg/dL 74-106 [facility] Work Phone: Potassium [Moles/Vol] 3.5 mmol/L 3.5-5.1 [facility] Work Phone: [phone] Sodium [Moles/Vol] 136 mmol/L 136-145 [facility] Work Phone: [phone] Testosterone [Mass/Vol] 354.33 ng/dL [facility] Work Phone: Comment on above: CENTRAL 90% REFERENC E RANGES MALE AGE <50 197.44 - 669.58 ng/dL MALE AGE > or = 50 187.72 - 684.19 ng/dL FEMALE AGE <50 8.38 - 35.01 ng/dL FEMALE AGE > or = 50 <7.00 - 35.92 ng/dL Effective as of 02/07/21 Triglyceride [Mass/Vol] 220 mg/dL <199 [facility] Work Phone: Comment on above: The drugs N-Acetylcy steine and Metamizole may falsely depress this assay.Serum Triglycerides Reference Interval Normal <150 mg/dL Borderline high 150 - 199 mg/dL High 200 - 499 mg/dL Very High > or = 500 mg/dL Laboratory - Chemistry and C hemistry - challengeon 05-09-2022 CO2 [Moles/Vol] 26.0 mmol/L 21.0-32.0 [facility] Work Phone: [phone] Free T4 [Mass/Vol] 0.99 ng/dL 0.76-1.46 [facility] Work Phone: [phone] Urea nitrogen/Creatinine [Mass ratio] 13.5 mg/mg 05-03 [facility] Work Phone: No Panel Informationon 05-09 Estimated GFR (MDRD) Amer 110 mL/min >60 [facility] Work Phone: Comment on above: GFR Calc Estimated GFR (MDRD) Non-Af Amer 91 mL/min >60 [facility] Work Phone: [phone] Comment on above: Non- GFR Calc Free Triiodothyronine (T3) pg/dL 2.9 pg/mL 2.18-3.98 [facility] Work Phone: [phone] Thyroid Stimulating Hormone (TSH) 2.17 uIU/mL 0.358-3.74 [facility] Work Phone: [phone] Urine Microalbumin/Creatini ne Ratio TNP [facility] Work Phone: [phone] Comment on above: Test not performed Serum or plasma calcium malissa urement (mass/volume)on 05-09-2022 Calcium [Mass/Vol] 8.9 mg/dL 8.5-10.1 [facility] Work Phone: Serum or plasma cholesterol in HDL measurement (mass/volume)on 05-09-2022 Cholesterol in HDL [Mass/Vol] 43 mg/dL >40 [facility] Work Phone: Comment on above: The drugs N-Acetylcy steine and Metamizole may falsely depress this assay. Reference Range HDL <40 mg/dL Low HDL Cholesterol HDL >or= 60 mg/dL High HDL Cholesterol Serum or plasma cholesterol in VLDL measurement (mass/volume)on 05-09-2022 Cholesterol in VLDL [Mass/Vol] 44 mg/dL 5-40 [facility] Work Phone: [phone] Serum or plasma creatinine m easurement (mass/volume)on 05-09-2022 Creatinine [Mass/Vol] 0.89 mg/dL 0.70-1.30 [facility] Work Phone: Comment on above: The validity of the calculated GFR & GFRAA in patients over 70 years has not been determined. Clinical correlation is essential. Serum or plasma low density lipoprotein (LDL) cholesterol measurement (mass/volume)on 05-09-2022 Cholesterol in LDL [Mass/Vol] 113 mg/dL 0-130 [facility] Work Phone: Serum or plasma urea nitroge n measurement (mass/volume)on 05-09-2022 Urea nitrogen [Mass/Vol] 12 mg/dL 7-18 [facility] Work Phone: [phone] Thin prep Papanicolaou smear with manual screeningon 05-09-2022 Thin prep Papanicolaou smear with manual screening 8 5-15 [facility] Work Phone: [phone] Thin prep Papanicolaou smear with manual screening < 5.0 mg/L NO RANGE EST. [facility] Work Phone: [phone] Urine creatinine measurement (mass/volume)on 05-09-2022 Creatinine (U) [Mass/Vol] 68.00 mg/dL NO RANGE EST. [facility] Work Phone: [phone] Whole blood hemoglobin A1c/t otal hemoglobin ratio (mass fraction)on 05-09-2022 HbA1c (Bld) [Mass fraction] 5.9 % 3.8-5.6 [facility] Work Phone: [phone] Comment on above: Normal < 5.7 % Predi abetic 5.7 - 6.4 % Diabetic >or= 6.5 % Please note range changes. Basophil percentageon 2021 Chloride [Moles/Vol] 100 mmol/L 98-107 [facility] Work Phone: [phone] Cholesterol [Mass/Vol] 189 mg/dL <200 [facility] Work Phone: [phone] Comment on above: <200 mg/dL Desirable 200-240 mg/dL Borderline >240 mg/dL High Risk Glucose [Mass/Vol] 102 mg/dL 74-106 [facility] Work Phone: Comment on above: Fasting Glucose resu lt from 100 to 125 mg/dL suggests IMPAIRED HOMEOSTASIS per A.D.A. criteria. Potassium [Moles/Vol] 3.6 mmol/L 3.5-5.1 [facility] Work Phone: Sodium [Moles/Vol] 136 mmol/L 136-145 [facility] Work Phone: [phone] Triglyceride [Mass/Vol] 114 mg/dL [facility] Work Phone: Comment on above: The drugs N-Acetylcy steine and Metamizole may falsely depress this assay.Serum Triglycerides Reference Interval Normal <150 mg/dL Borderline high 150 - 199 mg/dL High 200 - 499 mg/dL Very High > or = 500 mg/dL Laboratory - Chemistry and C hemistry - challengeon 11-06-2021 CO2 [Moles/Vol] 30.0 mmol/L 21.0-32.0 [facility] Work Phone: [phone] Free T4 [Mass/Vol] 1.16 ng/dL 0.76-1.46 [facility] Work Phone: [phone] Urea nitrogen/Creatinine [Mass ratio] 18.0 mg/mg 10-20 [facility] Work Phone: No Panel Informationon 11-06 Estimated GFR (MDRD) Amer 110 mL/min >60 [facility] Work Phone: Comment on above: GFR Calc Estimated GFR (MDRD) Non-Af Amer 91 mL/min >60 [facility] Work Phone: Comment on above: Non- GFR Calc Free Triiodothyronine (T3) pg/dL 3.2 pg/mL 2.18-3.98 [facility] Work Phone: [phone] Thyroid Stimulating Hormone (TSH) 1.43 uIU/mL 0.358-3.74 [facility] Work Phone: [phone] Serum or plasma calcium malissa urement (mass/volume)on 11-06-2021 Calcium [Mass/Vol] 9.3 mg/dL 8.5-10.1 [facility] Work Phone: Serum or plasma cholesterol in HDL measurement (mass/volume)on 11-06-2021 Cholesterol in HDL [Mass/Vol] 46 mg/dL [facility] Work Phone: Comment on above: The drugs N-Acetylcy steine and Metamizole may falsely depress this assay. Reference Range HDL <40 mg/dL Low HDL Cholesterol HDL >or= 60 mg/dL High HDL Cholesterol Serum or plasma cholesterol in VLDL measurement (mass/volume)on 11-06-2021 Cholesterol in VLDL [Mass/Vol] 23 mg/dL 5-40 [facility] Work Phone: [phone] Serum or plasma creatinine m easurement (mass/volume)on 11-06-2021 Creatinine [Mass/Vol] 0.89 mg/dL 0.70-1.30 [facility] Work Phone: Comment on above: The validity of the calculated GFR & GFRAA in patients over 70 years has not been determined. Clinical correlation is essential. Serum or plasma low density lipoprotein (LDL) cholesterol measurement (mass/volume)on 11-06-2021 Cholesterol in LDL [Mass/Vol] 120 mg/dL 0-130 [facility] Work Phone: Serum or plasma urea nitroge n measurement (mass/volume)on 11-06-2021 Urea nitrogen [Mass/Vol] 16 mg/dL 7-18 [facility] Work Phone: Thin prep Papanicolaou smear with manual screeningon 11-06-2021 Thin prep Papanicolaou smear with manual screening 6 5-15 [facility] Work Phone: Clinical Summary: Bruno n 10-30-2021 [facility] [employer] Invalid Interpretation Code [facility] Work Phone: Clinical Summary: Melissao n 10-09-2021 [facility] [employer] Invalid Interpretation Code [facility] Work Phone: CULTURE ANAEROBEon 2 CULTURE ANAEROBE CULTURE ANAEROBE --> Status: F No growth of anaerobes at 5 days. Normal [facility] Comment on above: Performed By: #### C S/BA #### [facility] [place] [address] [place] [address] #### S/KENISHA, C/SONNY #### [address] [address] CULT./ST. BACTERIAon 022 CULT./ST. BACTERIA CULT./ST. BACTERIA - -> Status: F Mixed respiratory kathya present. 1 Organism Streptococcus intermedius (anginosus group) Few -- 1 Organism -- Antibiotic Result Intrp -- Ampicillin(TU) <= 0.25 S Ceftriaxone(TU) <= 0.12 S Clindamycin(TU) >= 1 R Vancomycin(TU) 0.5 S Penicillin-G(TU) <= 0.06 S Normal [facility] Comment on above: Performed By: #### C S/BA #### [address] #### S/KENISHA, C/SONNY #### [address] Clinical Summary: [place] 10-02-2021 [facility] [employer] Invalid Interpretation Code [facility] Work Phone: Gram Stainon 10-02-2021 Gram Stain Result Rare polymorphonucle ar cells/lpf. Few gram positive cocci in pairs and chains. Rare gram positive bacilli. [facility] Test Performed by [address] [address] [facility] STAIN GRAMon 10-02-2021 STAIN GRAM STAIN GRAM --> Statu s: F Rare polymorphonuclear cells/lpf. Few gram positive cocci in pairs and chains. Rare gram positive bacilli. Few gram positive cocci in pairs and chains. Rare gram positive bacilli. Normal [facility] Comment on above: Performed By: #### C S/BA #### [address] #### S/GRAdilene, C/SONNY #### [address] Surgical Pathologyon 022 Surgical Pathology [id number] [facility] PATHOLOGY AND LABORATORY MEDICINE [address] [place] [address] [id number] FINAL SURGICAL PATHOLOGY REPORT NAME: TANI WILLIAMSON : 1955 66 Y M [facility] NO.: [id number] LOCATION: PO PROCEDURE 10/02/2021 DATE: SURGEON: SEBASTIAN ABBOTT MD [...] characteristics determined by the clinical laboratories of [facility]. They have not been cleared by [...] negativity on decalcified specimens. Professional Performing Location: [place] [address]. DEPARTMENT OF PATHOLOGY AND LABORATORY MEDICINE [place], [place] [address] [email or web address] Normal [facility] Clinical Summary: [place] 09-29-2021 MC25 OP Hand Invalid Interpretation Code [facility] Work Phone: Office Visit: New - 1st visi t with practice, Rm: 10on 09-29-2021 Tobacco smoking status Tobacco smoking status Invalid Interpretation Code [facility] Work Phone: NEGATED: Highlighted rowTobacco smoking status Tobacco smoking status Invalid Interpretation Code [facility] Work Phone: Absolute lymphocyte counton 09-06-2021 Lymphocytes Auto (Unsp spec) [#/Vol] 1.34 10*3/uL 0.83-4.51 [facility] Work Phone: Basophil percentageon 2021 Basophils/100 WBC (Bld) 0.4 % 0-1 [facility] Work Phone: Bilirubin [Mass/Vol] 1.30 mg/dL 0.20-1.00 [facility] Work Phone: Comment on above: For patients on eltr ombopag therapy, use of Dimension Christopher TBIL is not recommended. Chloride [Moles/Vol] 97 mmol/L 98-107 [facility] Work Phone: Cholesterol [Mass/Vol] 205 mg/dL <200 [facility] Work Phone: Comment on above: <200 mg/dL Desirable 200-240 mg/dL Borderline >240 mg/dL High Risk Eosinophils/100 WBC (Bld) 0.7 % 0-5 [facility] Work Phone: Glucose [Mass/Vol] 131 mg/dL 74-106 [facility] Work Phone: Comment on above: Fasting Glucose resu lt greater than or equal to 126 mg/dL suggests DIABETES MELLITUS per A.D.A. criteria. Neutrophils (Bld) [#/Vol] 4.5 10*3/uL 2.0-7.7 [facility] Work Phone: Neutrophils/100 WBC (Bld) 67.6 % 47-70 [facility] Work Phone: Potassium [Moles/Vol] 3.7 mmol/L 3.5-5.1 [facility] Work Phone: Protein [Mass/Vol] 8.2 g/dL 6.4-8.2 [facility] Work Phone: Sodium [Moles/Vol] 132 mmol/L 136-145 [facility] Work Phone: Testosterone [Mass/Vol] 236.01 ng/dL [facility] Work Phone: Comment on above: CENTRAL 90% REFERENC E RANGES MALE AGE <50 197.44 - 669.58 ng/dL MALE AGE > or = 50 187.72 - 684.19 ng/dL FEMALE AGE <50 8.38 - 35.01 ng/dL FEMALE AGE > or = 50 <7.00 - 35.92 ng/dL Effective as of 02/07/21 Triglyceride [Mass/Vol] 116 mg/dL [facility] Work Phone: Comment on above: The drugs N-Acetylcy steine and Metamizole may falsely depress this assay.Serum Triglycerides Reference Interval Normal <150 mg/dL Borderline high 150 - 199 mg/dL High 200 - 499 mg/dL Very High > or = 500 mg/dL WBC (Bld) [#/Vol] 6.7 10*3/uL 4.4-11.0 [facility] Work Phone: Blood erythrocytes count (nu mber/volume)on 09-06-2021 RBC (Bld) [#/Vol] 5.52 10*6/uL 4.6-6.2 [facility] Work Phone: Blood hemoglobin measurement (mass/volume)on 09-06-2021 Hemoglobin (Bld) [Mass/Vol] 17.1 g/dL 13.0-16.5 [facility] Work Phone: Blood lymphocytes/100 leukoc yteson 09-06-2021 Lymphocytes/100 WBC (Bld) 20.1 % 19-41 [facility] Work Phone: Blood monocytes/100 leukocyt eson 09-06-2021 Monocytes/100 WBC (Bld) 10.3 % 0-10 [facility] Work Phone: Blood platelet mean volumeon 09-06-2021 Platelet mean volume (Bld) [Entitic vol] 9.8 fL 6.2-12.0 [facility] Work Phone: Determination of erythrocyte mean corpuscular volume (MCV)on 09-06-2021 MCV (RBC) [Entitic vol] 90.2 fL 80-94 [facility] Work Phone: [phone] Hematocrit Auto (Bld) [Volum e fraction]on 09-06-2021 Hematocrit (Bld) [Volume fraction] 49.8 % 40-54 [facility] Work Phone: [phone] Laboratory - Chemistry and C hemistry - challengeon 09-06-2021 ALP [Catalytic activity/Vol] 58 U/L 45-117 [facility] Work Phone: [phone] ALT [Catalytic activity/Vol] 114 U/L 16-61 [facility] [facility] Work Phone: [phone] CO2 [Moles/Vol] 26.0 mmol/L 21.0-32.0 [facility] Work Phone: [phone] Globulin (S) [Mass/Vol] 4.1 g/dL 2.2-4.2 [facility] Work Phone: [phone] Urea nitrogen/Creatinine [Mass ratio] 13.5 mg/mg 10-20 [facility] Work Phone: [phone] Laboratory - Hematology and Cell countson 09-06-2021 Erythrocyte distribution width (RBC) [Entitic vol] 43.6 fL 35.1-43.9 [facility] Work Phone: [phone] Erythrocyte distribution width (RBC) [Ratio] 13.2 % 11.6-14.6 [facility] Work Phone: [phone] Immature granulocytes/100 WBC (Bld) 0.900 % 0.0-0.9 [facility] Work Phone: [phone] Comment on above: IG% - Immature Granu locytes (promyelocytes, myelocytes and metamyelocytes) > 1% indicates that a LEFT SHIFT is Present. MCH (RBC) [Entitic mass] 31.0 pg 27.0-32.0 [facility] Work Phone: [phone] Nucleated RBC/100 WBC (Bld) [Ratio] 0 % 0-5 [facility] Work Phone: [phone] MCHC Auto (RBC) [Mass/Vol]on 09-06-2021 MCHC (RBC) [Mass/Vol] 34.3 g/dL 32-36 [facility] Work Phone: [phone] Panel Informationon 09-06 Estimated GFR (MDRD) Amer 92 mL/min >60 [facility] Work Phone: Comment on above: GFR Calc Estimated GFR (MDRD) Non-Af Amer 76 mL/min >60 [facility] Work Phone: Comment on above: Non- GFR Calc Prostate Specific Antigen Total 0.58 ng/mL 0.0-4.0 [facility] Work Phone: Comment on above: This test was perfor med using the TPSA assay method for [facility] chemistry system. Values obtained with differentassay methods cannot be used interchangably.When changing PSA assays in the course of monitoring apatient, additional sequential testing should be carriedout to confirm baseline values. Thyroid Stimulating Hormone (TSH) 5.58 uIU/mL 0.358-3.74 [facility] Work Phone: Platelets bldon 09-06-2021 Platelets (Bld) [#/Vol] 284 10*3/uL 150-450 [facility] Work Phone: [phone] Serum or plasma albumin malissa urement (mass/volume)on 09-06-2021 Albumin [Mass/Vol] 4.1 g/dL 3.2-5.0 [facility] Work Phone: [phone] Serum or plasma albumin/glob ulin mass ratioon 09-06-2021 Albumin/Globulin [Mass ratio] 1.0 {ratio} 0.9-2.4 [facility] Work Phone: [phone] Serum or plasma calcium malissa urement (mass/volume)on 09-06-2021 Calcium [Mass/Vol] 9.2 mg/dL 8.5-10.1 [facility] Work Phone: [phone] Serum or plasma cholesterol in HDL measurement (mass/volume)on 09-06-2021 Cholesterol in HDL [Mass/Vol] 58 mg/dL [facility] Work Phone: Comment on above: The drugs N-Acetylcy steine and Metamizole may falsely depress this assay. Reference Range HDL <40 mg/dL Low HDL Cholesterol HDL >or= 60 mg/dL High HDL Cholesterol Serum or plasma cholesterol in VLDL measurement (mass/volume)on 09-06-2021 Cholesterol in VLDL [Mass/Vol] 23 mg/dL 5-40 [facility] Work Phone: Serum or plasma creatinine m easurement (mass/volume)on 09-06-2021 Creatinine [Mass/Vol] 1.04 mg/dL 0.70-1.30 [facility] Work Phone: Comment on above: The validity of the calculated GFR & GFRAA in patients over 70 years has not been determined. Clinical correlation is essential. Serum or plasma low density lipoprotein (LDL) cholesterol measurement (mass/volume)on 09-06-2021 Cholesterol in LDL [Mass/Vol] 124 mg/dL 0-130 [facility] Work Phone: Serum or plasma urea nitroge n measurement (mass/volume)on 09-06-2021 Urea nitrogen [Mass/Vol] 14 mg/dL 7-18 [facility] Work Phone: Thin prep Papanicolaou smear with manual screeningon 09-06-2021 Thin prep Papanicolaou smear with manual screening 61 U/L 15-37 [facility] Work Phone: Thin prep Papanicolaou smear with manual screening 9 5-15 [facility] Work Phone: Whole blood hemoglobin A1c/t otal hemoglobin ratio (mass fraction)on 09-06-2021 HbA1c (Bld) [Mass fraction] 6.1 % 3.8-5.6 [facility] Work Phone: Comment on above: Normal < 5.7 % Predi abetic 5.7 - 6.4 % Diabetic >or= 6.5 % Please note range changes. Absolute lymphocyte counton 08-31-2021 Lymphocytes Auto (Unsp spec) [#/Vol] 1.32 10*3/uL 0.83-4.51 [facility] Work Phone: Basophil percentageon 2021 Basophil percentage 0 SEEN /hpf [facility] Work Phone: Basophils/100 WBC (Bld) 0.8 % 0-1 [facility] Work Phone: Bilirubin [Mass/Vol] 0.60 mg/dL 0.20-1.00 [facility] Work Phone: Comment on above: For patients on eltr ombopag therapy, use of Dimension Christopher TBIL is not recommended. Chloride [Moles/Vol] 103 mmol/L 98-107 [facility] Work Phone: Eosinophils/100 WBC (Bld) 0.6 % 0-5 [facility] Work Phone: Glucose [Mass/Vol] 136 mg/dL 74-106 [facility] Work Phone: Comment on above: Fasting Glucose resu lt greater than or equal to 126 mg/dL suggests DIABETES MELLITUS per A.D.A. criteria. Neutrophils (Bld) [#/Vol] 4.2 10*3/uL 2.0-7.7 [facility] Work Phone: Neutrophils/100 WBC (Bld) 66.4 % 47-70 [facility] Work Phone: Potassium [Moles/Vol] 3.7 mmol/L 3.5-5.1 [facility] Work Phone: Protein [Mass/Vol] 7.6 g/dL 6.4-8.2 [facility] Work Phone: Sodium [Moles/Vol] 136 mmol/L 136-145 [facility] Work Phone: WBC (Bld) [#/Vol] 6.3 10*3/uL 4.4-11.0 [facility] Work Phone: Bilirubin Test strip Ql (U)o n 08-31-2021 Bilirubin Ql (U) Negative Negative [facility] Work Phone: Blood erythrocytes count (nu mber/volume)on 08-31-2021 RBC (Bld) [#/Vol] 5.13 10*6/uL 4.6-6.2 [facility] Work Phone: Blood hemoglobin measurement (mass/volume)on 08-31-2021 Hemoglobin (Bld) [Mass/Vol] 15.5 g/dL 13.0-16.5 [facility] Work Phone: Blood lymphocytes/100 leukoc yteson 08-31-2021 Lymphocytes/100 WBC (Bld) 21.0 % 19-41 [facility] Work Phone: Blood monocytes/100 leukocyt eson 08-31-2021 Monocytes/100 WBC (Bld) 10.2 % 0-10 [facility] Work Phone: Blood platelet mean volumeon 08-31-2021 Platelet mean volume (Bld) [Entitic vol] 9.6 fL 6.2-12.0 [facility] Work Phone: Determination of erythrocyte mean corpuscular volume (MCV)on 08-31-2021 MCV (RBC) [Entitic vol] 89.7 fL 80-94 [facility] Work Phone: Hematocrit Auto (Bld) [Volum e fraction]on 08-31-2021 Hematocrit (Bld) [Volume fraction] 46.0 % 40-54 [facility] Work Phone: Ketones Test strip Ql (U)on 08-31-2021 Ketones Ql (U) Negative Negative [facility] Work Phone: Laboratory - Chemistry and C hemistry - challengeon 08-31-2021 Lipase [Catalytic activity/Vol] 42 U/L 73-393 [facility] Work Phone: ALP [Catalytic activity/Vol] 69 U/L 45-117 [facility] Work Phone: ALT [Catalytic activity/Vol] 111 U/L 16-61 [facility] Work Phone: CO2 [Moles/Vol] 28.0 mmol/L 21.0-32.0 [facility] Work Phone: Globulin (S) [Mass/Vol] 3.7 g/dL 2.2-4.2 [facility] Work Phone: [phone] Urea nitrogen/Creatinine [Mass ratio] 12.4 mg/mg 10-20 [facility] Work Phone: [phone] Laboratory - Hematology and Cell countson 08-31-2021 Erythrocyte distribution width (RBC) [Entitic vol] 43.2 fL 35.1-43.9 [facility] Work Phone: [phone] Erythrocyte distribution width (RBC) [Ratio] 13.2 % 11.6-14.6 [facility] Work Phone: [phone] Immature granulocytes/100 WBC (Bld) 1.000 % 0.0-0.9 [facility] Work Phone: [phone] Comment on above: IG% - Immature Granu locytes (promyelocytes, myelocytes and metamyelocytes) > 1% indicates that a LEFT SHIFT is Present. MCH (RBC) [Entitic mass] 30.2 pg 27.0-32.0 [facility] Work Phone: [phone] Nucleated RBC/100 WBC (Bld) [Ratio] 0 % 0-5 [facility] Work Phone: MCHC Auto (RBC) [Mass/Vol]on 08-31-2021 MCHC (RBC) [Mass/Vol] 33.7 g/dL 32-36 [facility] Work Phone: Mucus LM Ql (Urine sed)on Mucus Ql (Urine sed) 0 SEEN /hpf [facility] Work Phone: [phone] Nitrite Test strip Ql (U)on 08-31-2021 Nitrite Ql (U) Negative Negative [facility] Work Phone: [phone] Panel Informationon 08-31 Estimated Creatinine Clearance Calc 95.68 ml/min [facility] Work Phone: [phone] Estimated GFR (MDRD) Amer 100 mL/min >60 [facility] Work Phone: [phone] Comment on above: GFR Calc Estimated GFR (MDRD) Non-Af Amer 83 mL/min >60 [facility] Work Phone: [phone] Comment on above: Non- GFR Calc Platelets bldon 08-31-2021 Platelets (Bld) [#/Vol] 228 10*3/uL 150-450 [facility] Work Phone: [phone] Protein Test strip Ql (U)on 08-31-2021 Protein Ql (U) Negative Negative [facility] Work Phone: [phone] Serum or plasma albumin malissa urement (mass/volume)on 08-31-2021 Albumin [Mass/Vol] 3.9 g/dL 3.2-5.0 [facility] Work Phone: [phone] Serum or plasma albumin/glob ulin mass ratioon 08-31-2021 Albumin/Globulin [Mass ratio] 1.1 {ratio} 0.9-2.4 [facility] Work Phone: [phone] Serum or plasma calcium malissa urement (mass/volume)on 08-31-2021 Calcium [Mass/Vol] 9.2 mg/dL 8.5-10.1 [facility] Work Phone: [phone] Serum or plasma creatinine m easurement (mass/volume)on 08-31-2021 Creatinine [Mass/Vol] 0.97 mg/dL 0.70-1.30 [facility] Work Phone: [phone] Comment on above: The validity of the calculated GFR & GFRAA in patients over 70 years has not been determined. Clinical correlation is essential. Serum or plasma urea nitroge n measurement (mass/volume)on 08-31-2021 Urea nitrogen [Mass/Vol] 12 mg/dL 7-18 [facility] Work Phone: [phone] Squamous epithelial cells de tection in urine sediment by light microscopyon 08-31-2021 Epithelial cells.squamous LM Ql (Urine sed) 0 SEEN /hpf [facility] Work Phone: [phone] Thin prep Papanicolaou smear with manual screeningon 08-31-2021 Thin prep Papanicolaou smear with manual screening 59 U/L 15-37 [facility] Work Phone: [phone] Thin prep Papanicolaou smear with manual screening 5 5-15 [facility] Work Phone: [phone] Urine blood detectionon 08-15 RBC Ql (U) Negative Negative [facility] Work Phone: RBC Ql (U) 0 SEEN /hpf [facility] Work Phone: Urine clarityon 08-31-2021 Clarity (U) Clear Clear [facility] Work Phone: Urine color determinationon 08-31-2021 Color (U) Yellow Yellow [facility] Work Phone: Urine glucose detectionon Glucose Ql (U) Normal mg/dl Normal [facility] Work Phone: Urine leukocyte esterase det ection by dipstickon 08-31-2021 Leukocyte esterase Test strip Ql (U) Negative Negative [facility] Work Phone: Urine pHon 08-31-2021 pH (U) 8.0 [pH] [facility] Work Phone: Urine sediment bacteria coun t by microscopy (number/high power field)on 08-31-2021 Bacteria LM.HPF (Urine sed) [#/Area] 0 /[HPF] None Seen [facility] Work Phone: Urine specific gravity measu rementon 08-31-2021 Specific gravity (U) [Rel density] 1.010 [facility] Work Phone: Urobilinogen Auto test strip Ql (U)on 08-31-2021 Urobilinogen Ql (U) Normal mg/dl Normal [facility] Work Phone: Final Surgical Pathology Rep [facility] 10-15-2018 Final Surgical Pathology Report . Pathology Reports Accession: Collected Date/Time: Received Date/Time: Pathologist: [id number] 10/14/2018 10:21 EDT 10/14/2018 13:02 EDT DO [...] vessels. RS -1 Dictated by Ada STONER ([facility]) MICROSCOPIC DESCRIPTION: Slides reviewed. Electronically Signed by Pathology Report verified by [facility] Electronically signed by PATRICE RICHTER DO Sign out Date: 10/15/2018 14:32 Performing Lab: [facility], [address] [place] [address] ([place]) Comment on above: Performed By: #### S PFR #### [address] [address] Vital Signs Date Time Vital Sign Value Performing Clinician Facility 01-29-2025 11:00-0400 Body temperature 98.5 [degF] Dr. Shane Contreras MD Work Phone: 4(320)751-[address]8217 [place] [address] 01-29-2025 11:00-0400 Diastolic blood pressure 74 mm[Hg] Dr. Shane Contreras MD Work Phone: 9(890)286-808745 [address] 01-29-2025 11:00-0400 Heart rate 73 /min Dr. Shane Contreras MD Work Phone: [facility] 01-29-2025 11:00-0400 Respiratory rate 16 /min Dr. Shane Contreras MD Work Phone: [facility] 01-29-2025 11:00-0400 SaO2% (BldA) [Mass fraction] 95 % Dr. Shane Contreras MD Work Phone: [facility] 01-29-2025 11:00-0400 Systolic blood pressure 117 mm[Hg] Dr. Shane Contreras MD Work Phone: [facility] 01-29-2025 08:46-0400 Body height 195.[address] Shane Contreras MD Work Phone: [facility] 01-29-2025 08:46-0400 Body mass index (BMI) [Ratio] 34.1 kg/m2 Dr. Shane Contreras MD Work Phone: [facility] 01-29-2025 08:46-0400 Body weight 130.[address] Shane Contreras MD Work Phone: [facility] 09-16-2023 20:50-0500 Body temperature 97.4 [degF] Dr. Shane Contreras Work Phone: [facility] 09-16-2023 20:50-0500 Diastolic blood pressure 72 mm[Hg] Dr. Shane Contreras Work Phone: [facility] 09-16-2023 20:50-0500 Heart rate 79 /min Dr. Shane Contreras Work Phone: [facility] 09-16-2023 20:50-0500 Respiratory rate 18 /min Dr. Shane Contreras Work Phone: [facility] 09-16-2023 20:50-0500 SaO2% (BldA) [Mass fraction] 92 % Dr. Shane Contreras Work Phone: [facility] 09-16-2023 20:50-0500 Systolic blood pressure 107 mm[Hg] Dr. Shane Contreras Work Phone: [facility] 09-16-2023 18:45-0500 Inhaled oxygen flow rate 2 L/min Dr. Shane Contreras Work Phone: [facility] 09-16-2023 14:04-0500 Body height 195.[address] Shane Contreras Work Phone: [facility] 09-16-2023 14:04-0500 Body mass index (BMI) [Ratio] 31.1 kg/m2 Dr. Shane Contreras Work Phone: [facility] 09-16-2023 14:04-0500 Body weight 119.[address] Shane Contreras Work Phone: [facility] 09-13-2023 12:50-0500 Body weight 123.[address] Shane Contreras Work Phone: [facility] 09-13-2023 12:50-0500 Body temperature 97.9 [degF] Dr. Shane Contreras Work Phone: [facility] 09-13-2023 12:50-0500 Diastolic blood pressure 85 mm[Hg] Dr. Shane Contreras Work Phone: [facility] 09-13-2023 12:50-0500 Heart rate 90 /min Dr. Shane Contreras Work Phone: [facility] 09-13-2023 12:50-0500 Respiratory rate 18 /min Dr. Shane Contreras Work Phone: [facility] 09-13-2023 12:50-0500 SaO2% (BldA) [Mass fraction] 93 % Dr. Shane Contreras Work Phone: [facility] 09-13-2023 12:50-0500 Systolic blood pressure 140 mm[Hg] Dr. Shane Contreras Work Phone: 5(379)227-724645 [address] 09-10-2023 08:08-0500 Body mass index (BMI) [Ratio] 32.3 kg/m2 Dr. Shane Contreras Work Phone: 8(399)266-960617 [place] [address] 09-10-2023 08:08-0500 Body temperature 97.8 [degF] Dr. Shane Contreras Work Phone: 2(769)599-179245 [address] 09-10-2023 08:08-0500 Body weight 123.[address] Shane Contreras Work Phone: [facility] 09-10-2023 08:08-0500 Diastolic blood pressure 88 mm[Hg] Dr. Shane Contreras Work Phone: [facility] 09-10-2023 08:08-0500 Heart rate 88 /min Dr. Shane Contreras Work Phone: [facility] 09-10-2023 08:08-0500 Respiratory rate 18 /min Dr. Shane Contreras Work Phone: [facility] 09-10-2023 08:08-0500 SaO2% (BldA) [Mass fraction] 95 % Dr. Shane Contreras Work Phone: [facility] 09-10-2023 08:08-0500 Systolic blood pressure 133 mm[Hg] Dr. Shane Contreras Work Phone: [facility] 09-09-2023 22:26-0500 Body temperature 97.8 [degF] Dr. Shane Contreras Work Phone: [facility] 09-09-2023 22:26-0500 Diastolic blood pressure 80 mm[Hg] Dr. Shane Contreras Work Phone: [facility] 09-09-2023 22:26-0500 Heart rate 78 /min Dr. Shane Contreras Work Phone: [facility] 09-09-2023 22:26-0500 Respiratory rate 16 /min Dr. Shane Contreras Work Phone: 8(299)299-543145 [address] 09-09-2023 22:26-0500 SaO2% (BldA) [Mass fraction] 97 % Dr. Shane Contreras Work Phone: 8(956)298-111617 [place] [address] 09-09-2023 22:26-0500 Systolic blood pressure 129 mm[Hg] Dr. Shane Contreras Work Phone: [facility] 09-09-2023 20:20-0500 Body mass index (BMI) [Ratio] 32 kg/m2 Dr. Shane Contreras Work Phone: 6(001)515-328417 [place] [address] 09-09-2023 20:20-0500 Body weight 122.[address] Shane Contreras Work Phone: [facility] 06-21-2023 07:20-0500 Body temperature 98.4 [degF] Dr. Shane Contreras Work Phone: [facility] 06-21-2023 07:20-0500 Diastolic blood pressure 76 mm[Hg] Dr. Shane Contreras Work Phone: [facility] 06-21-2023 07:20-0500 Heart rate 76 /min Dr. Shane Contreras Work Phone: [facility] 06-21-2023 07:20-0500 Respiratory rate 18 /min Dr. Shane Contreras Work Phone: [facility] 06-21-2023 07:20-0500 SaO2% (BldA) [Mass fraction] 98 % Dr. Shane Contreras Work Phone: [facility] 06-21-2023 07:20-0500 Systolic blood pressure 122 mm[Hg] Dr. Shane Contreras Work Phone: [facility] 06-21-2023 05:46-0500 Body height 195.[address] Shane Contreras Work Phone: [facility] 06-21-2023 05:46-0500 Body mass index (BMI) [Ratio] 30.8 kg/m2 Dr. Shane Contreras Work Phone: 8(621)105-077517 [place] [address] 06-21-2023 05:46-0500 Body weight 118.[address] Shane Contreras Work Phone: 3(437)641-129345 [address] 06-20-2023 12:56-0500 Body mass index (BMI) [Ratio] 31.2 kg/m2 Dr. Shane Contreras Work Phone: [facility] 06-20-2023 12:56-0500 Body temperature 97.4 [degF] Dr. Shane Contreras Work Phone: 2(815)879-154517 [place] [address] 06-20-2023 12:56-0500 Body weight 119.[address] Shane Contreras Work Phone: [facility] 06-20-2023 12:56-0500 Diastolic blood pressure 80 mm[Hg] Dr. Shane Contreras Work Phone: [facility] 06-20-2023 12:56-0500 Heart rate 92 /min Dr. Shane Contreras Work Phone: [facility] 06-20-2023 12:56-0500 Respiratory rate 18 /min Dr. Shane Contreras Work Phone: [facility] 06-20-2023 12:56-0500 SaO2% (BldA) [Mass fraction] 95 % Dr. Shane oCntreras Work Phone: [facility] 06-20-2023 12:56-0500 Systolic blood pressure 153 mm[Hg] Dr. Shane Contreras Work Phone: [facility] 05-11-2023 14:46-0400 Body temperature 98.4 [degF] Dr. Shane Contreras Work Phone: [facility] 05-11-2023 14:46-0400 Diastolic blood pressure 75 mm[Hg] Dr. Shane Contreras Work Phone: 8(566)786-507237 [place] [address] 05-11-2023 14:46-0400 Heart rate 80 /min Dr. Shane Contreras Work Phone: 0(544)873-851137 [place] [address] 05-11-2023 14:46-0400 Respiratory rate 16 /min Dr. Shane Contreras Work Phone: 2(192)162-537837 [place] [address] 05-11-2023 14:46-0400 SaO2% (BldA) [Mass fraction] 96 % Dr. Shane Contreras Work Phone: 5(092)308-435437 [place] [address] 05-11-2023 14:46-0400 Systolic blood pressure 134 mm[Hg] Dr. Shane Contreras Work Phone: 2(031)736-724037 [place] [address] 05-10-2023 10:20-0400 Body height 195.[address] Shane Contreras Work Phone: 3(300)724-310437 [place] [address] 05-10-2023 10:20-0400 Body weight 120.[address] Shane Contreras Work Phone: 3(045)103-057137 [place] [address] 05-09-2023 22:41-0400 Body mass index (BMI) [Ratio] 31.4 kg/m2 Dr. Shane Contreras Work Phone: 4(655)653-451217 [place] [address] 05-09-2023 21:39-0400 Body temperature 99.3 [degF] Dr. Shane Contreras Work Phone: 5(332)539-311737 [place] [address] 05-09-2023 21:39-0400 Diastolic blood pressure 86 mm[Hg] Dr. Shane Contreras Work Phone: 0(538)885-867937 [place] [address] 05-09-2023 21:39-0400 Heart rate 86 /min Dr. Shane Contreras Work Phone: 7(765)261-115837 [place] [address] 05-09-2023 21:39-0400 Respiratory rate 14 /min Dr. Shane Contreras Work Phone: 0(171)189-042537 [place] [address] 05-09-2023 21:39-0400 SaO2% (BldA) [Mass fraction] 92 % Dr. Shane Contreras Work Phone: 1(695)847-094137 [place] [address] 05-09-2023 21:39-0400 Systolic blood pressure 134 mm[Hg] Dr. Shane Contreras Work Phone: 3(163)541-998037 [place] [address] 05-09-2023 19:01-0400 Body height 195.[address] Shane Contreras Work Phone: 1(219)170-455337 [place] [address] 05-09-2023 19:01-0400 Body mass index (BMI) [Ratio] 32 kg/m2 Dr. Shane Contreras Work Phone: 4(852)237-316037 [place] [address] 05-09-2023 19:01-0400 Body weight 122.[address] Shane Contreras Work Phone: 1(305)176-418937 [place] [address] 04-20-2023 09:33-0400 Body mass index (BMI) [Ratio] 33.7 kg/m2 Dr. Shane Contreras Work Phone: 2(959)733-690537 [place] [address] 04-20-2023 09:33-0400 Body temperature 98.4 [degF] Dr. Shane Contreras Work Phone: 0(688)551-074337 [place] [address] 04-20-2023 09:33-0400 Body weight 128.[address] Shaen Contreras Work Phone: 3(833)419-073637 [place] [address] 04-20-2023 09:33-0400 Diastolic blood pressure 84 mm[Hg] Dr. Shane Contreras Work Phone: 1(293)282-912037 [place] [address] 04-20-2023 09:33-0400 Heart rate 69 /min Dr. Shane Contreras Work Phone: 1(220)615-138337 [place] [address] 04-20-2023 09:33-0400 Respiratory rate 16 /min Dr. Shane Contreras Work Phone: 3(014)263-923337 [place] [address] 04-20-2023 09:33-0400 SaO2% (BldA) [Mass fraction] 94 % Dr. Shane Contreras Work Phone: [facility] 04-20-2023 09:33-0400 Systolic blood pressure 142 mm[Hg] Dr. Shane Contreras Work Phone: [facility] 02-28-2023 12:18-0400 Body height 195.6 cm Dane Pruitt MD Work Phone: 7(842)811-815905 [address] 02-28-2023 12:18-0400 Body mass index (BMI) [Ratio] 32.75 kg/m2 Dane Pruitt MD Work Phone: 9(892)035-644674 [place] [address] 02-28-2023 12:18-0400 Body weight 125.28 kg Dane Pruitt MD Work Phone: 4(728)569-838974 [place] [address] 02-28-2023 12:18-0400 Diastolic blood pressure 67 mm[Hg] Dane Pruitt MD Work Phone: 0(959)724-307905 [address] 02-28-2023 12:18-0400 Heart rate 86 /min Dane Pruitt MD Work Phone: 4(240)952-209574 [place] [address] 02-28-2023 12:18-0400 Respiratory rate 16 /min Dane Pruitt MD Work Phone: 1(537)721-492505 [address] 02-28-2023 12:18-0400 SaO2% (BldA) [Mass fraction] 95 % Dane Pruitt MD Work Phone: 8(277)977-435205 [address] Comment on above: Supine 96% to sittin g 96% by at bedside 02-28-2023 12:18-0400 Systolic blood pressure 142 mm[Hg] Dane Pruitt MD Work Phone: 9(853)969-876005 [address] 12-17-2022 13:02-0400 Body height 195.[address] Shane Contreras Work Phone: [facility] 12-17-2022 13:02-0400 Body mass index (BMI) [Ratio] 31.8 kg/m2 Dr. Shane Contreras Work Phone: [facility] 12-17-2022 13:02-0400 Body weight 121.[address] Shane Contreras Work Phone: [facility] 12-17-2022 13:02-0400 Diastolic blood pressure 74 mm[Hg] Dr. Shane Contreras Work Phone: [facility] 12-17-2022 13:02-0400 Heart rate 74 /min Dr. Shane Contreras Work Phone: [facility] 12-17-2022 13:02-0400 Respiratory rate 16 /min Dr. Shane Contreras Work Phone: [facility] 12-17-2022 13:02-0400 Systolic blood pressure 121 mm[Hg] Dr. Shane Contreras Work Phone: [facility] 12-09-2022 17:59-0400 Diastolic blood pressure 92 mm[Hg] [facility] 12-09-2022 17:59-0400 Heart rate 71 /min [facility] [facility] 12-09-2022 17:59-0400 Respiratory rate 18 /min [facility] 12-09-2022 17:59-0400 SaO2% (BldA) [Mass fraction] 96 % [facility] 12-09-2022 17:59-0400 Systolic blood pressure 152 mm[Hg] [facility] 12-09-2022 15:40-0400 Body height 195.58 cm [facility] 12-09-2022 15:40-0400 Body mass index (BMI) [Ratio] 32.5 kg/m2 [facility] 12-09-2022 15:40-0400 Body temperature 97.4 [degF] [facility] 12-09-2022 15:40-0400 Body weight 124.73 kg [facility] 06-13-2022 06:18-0500 Body temperature 98.1 [degF] Dr. Shane Contreras Work Phone: [facility] 06-13-2022 06:18-0500 Diastolic blood pressure 82 mm[Hg] Dr. Shane Contreras Work Phone: [facility] 06-13-2022 06:18-0500 Heart rate 87 /min Dr. Shane Contreras Work Phone: [facility] 06-13-2022 06:18-0500 Respiratory rate 14 /min Dr. Shane Contreras Work Phone: [facility] 06-13-2022 06:18-0500 SaO2% (BldA) [Mass fraction] 98 % Dr. Shane Contreras Work Phone: [facility] 06-13-2022 06:18-0500 Systolic blood pressure 134 mm[Hg] Dr. Shane Contreras Work Phone: [facility] 10-31-2021 13:54-0400 Body height 195.[address] Shane Contreras Work Phone: [facility] Work Phone: 10-31-2021 13:54-0400 Body mass index (BMI) [Ratio] 32.5 kg/m2 Dr. Shane Contreras Work Phone: [facility] Work Phone: 10-31-2021 13:54-0400 Body weight 124.[address] Shane Contreras Work Phone: [facility] Work Phone: 10-31-2021 13:54-0400 Diastolic blood pressure 61 mm[Hg] Dr. Shane Contreras Work Phone: [facility] Work Phone: 10-31-2021 13:54-0400 Heart rate 86 /min Dr. Shane Contreras Work Phone: [facility] Work Phone: 10-31-2021 13:54-0400 Respiratory rate 16 /min Dr. Shane Contreras Work Phone: [facility] Work Phone: 10-31-2021 13:54-0400 Systolic blood pressure 102 mm[Hg] Dr. Shane Contreras Work Phone: [facility] Work Phone: 09-15-2021 12:07-0500 Body mass index (BMI) [Ratio] 33.4 kg/m2 Dr. Shane Contreras Work Phone: [facility] Work Phone: 09-15-2021 12:07-0500 Body weight 127.[address] Shane Contreras Work Phone: [facility] Work Phone: 09-15-2021 12:07-0500 Diastolic blood pressure 74 mm[Hg] Dr. Shane Contreras Work Phone: [facility] Work Phone: 09-15-2021 12:07-0500 Heart rate 90 /min Dr. Shane Contreras Work Phone: [facility] Work Phone: 09-15-2021 12:07-0500 Respiratory rate 16 /min Dr. Shane Contreras Work Phone: [facility] Work Phone: 09-15-2021 12:07-0500 Systolic blood pressure 124 mm[Hg] Dr. Shane Contreras Work Phone: [facility] Work Phone: 08-31-2021 12:31-0500 Diastolic blood pressure 102 mm[Hg] Dr. Shane Contreras Work Phone: [facility] Work Phone: 08-31-2021 12:31-0500 Heart rate 93 /min Dr. Shane Contreras Work Phone: [facility] Work Phone: 08-31-2021 12:31-0500 Respiratory rate 16 /min Dr. Shane Contreras Work Phone: [facility] Work Phone: 08-31-2021 12:31-0500 SaO2% (BldA) [Mass fraction] 94 % Dr. Shane Contreras Work Phone: [facility] Work Phone: 08-31-2021 12:31-0500 Systolic blood pressure 168 mm[Hg] Dr. Shane Contreras Work Phone: [facility] Work Phone: 08-31-2021 09:45-0500 Body mass index (BMI) [Ratio] 34.4 kg/m2 Dr. Shane Contreras Work Phone: [facility] Work Phone: 08-31-2021 09:45-0500 Body temperature 97.5 [degF] Dr. Shane Contreras Work Phone: [facility] Work Phone: 08-31-2021 09:45-0500 Body weight 131.[address] Shane Contreras Work Phone: [facility] Work Phone: NEGATED: Highlighted [id number] 12:41-0400 Body height 195.58 cm [facility] Work Phone: NEGATED: Highlighted [id number] 12:41-0400 Body height 196 [facility] Work Phone: NEGATED: Highlighted [id number] 12:41-0400 Body mass index (BMI) [Ratio] 31.54 kg/m2 [facility] Work Phone: NEGATED: Highlighted [id number] 12:41-0400 Body weight 120.2 kg [facility] Work Phone: NEGATED: Highlighted [id number] 12:41-0400 Body weight 120 kg Kyleigh Villegas [facility] Work Phone: NEGATED: Highlighted [id number] 12:46-0400 Body height 195.58 cm Sharee Chaidez RN [facility] Work Phone: NEGATED: Highlighted [id number] 12:46-0400 Body height 196 cm Sharee Chaidez RN [facility] Work Phone: NEGATED: Highlighted [id number] 12:46-0400 Body mass index (BMI) [Ratio] 32.73 kg/m2 Sharee Chaidez RN [facility] Work Phone: NEGATED: Highlighted [id number] 12:46-0400 Body weight 124.74 kg Sharee Chaidez RN [facility] Work Phone: NEGATED: Highlighted [id number] 12:46-0400 Body weight 125 kg Sharee Chaidez RN [facility] Work Phone: NEGATED: Highlighted [id number] 10:24-0400 Body height 195.58 cm Sharee Chaidez RN [facility] Work Phone: NEGATED: Highlighted [id number] 10:24-0400 Body height 196 cm Sharee Chaidez RN [facility] Work Phone: NEGATED: Highlighted [id number] 10:24-0400 Body mass index (BMI) [Ratio] 32.73 kg/m2 Sharee Chaidez RN [facility] Work Phone: NEGATED: Highlighted [id number] 10:24-0400 Body weight 124.74 kg Sharee Chaidez RN [facility] Work Phone: NEGATED: Highlighted [id number] 10:24-0400 Body weight 125 kg Sharee Chaidez RN [facility] Work Phone: NEGATED: Highlighted [id number] 15:19-0400 Body height 195.58 cm Alexus Duecker AT [facility] Work Phone: NEGATED: Highlighted [id number] 15:19-0400 Body height 196 cm Alexus Duecker AT [facility] Work Phone: NEGATED: Highlighted [id number] 15:19-0400 Body mass index (BMI) [Ratio] 32.73 kg/m2 Alexus Duecker AT [facility] Work Phone: NEGATED: Highlighted [id number] 15:19-0400 Body weight 124.74 kg Alexus Duecker AT [facility] Work Phone: NEGATED: Highlighted [id number] 15:19-0400 Body weight 125 kg Alexus Duecker AT [facility] Work Phone: Encounters Encounter Date Encounter Type Care Provider Facility Start: 03-19-2025 ambulatory Shane Contreras Facility:[facility] Start: 03-04-2025 End: 03-04-[address] Shane Contreras MD Work Phone: -Cat Scan [facility] Start: 03-04-2025 End: 03-04-[address] All Stephens MD -Cat Scan [facility] Work Phone: Start: 03-04-2025 End: 03-04-2025 ambulatory Shane Contreras Facility:[facility] Start: 02-26-2025 End: 02-26-[address] Shane Contreras MD Work Phone: -Laboratory [facility] Start: 02-26-2025 End: 02-26-[address] Shane Contreras MD -Laboratory [facility] Start: 02-26-2025 End: 02-26-2025 ambulatory Shane Contreras Facility:[facility] Start: 02-24-2025 End: 02-24-[address] Shane Contreras MD Work Phone: -Laboratory Spec[facility] Start: 02-24-2025 End: 02-24-[address] Shane Contreras MD -Laboratory Specimen Work Phone: Start: 02-24-2025 End: 02-24-2025 ambulatory Shane Contreras Facility:[facility] Start: 01-29-2025 ambulatory Shane Contreras Facility:[facility] Start: 01-29-2025 Non-patient / Non-visit Nadirregina Martines DO [facility] Start: 01-29-2025 End: 01-29-2025 [facility] Start: 01-29-2025 End: 01-29-[address] Shane Contreras MD Work Phone: -Endoscopy Start: 11-27-2024 End: 11-27-2024 Patient encounter procedure Nadirsilvestre Martines [facility] Work Phone: Start: 11-27-2024 End: 11-27-[address] Shane Contreras MD Work Phone: [facility] Work Phone: Start: 11-26-2024 End: 11-26-[address] Shane Contreras MD Work Phone: [facility] Work Phone: Start: 11-26-2024 End: 11-26-[address] Shane Contreras MD -Laboratory [facility] Start: 11-26-2024 End: 11-26-2024 ambulatory Shane Contreras Facility:[facility] Start: 08-24-2024 End: 08-24-[address] Shane Contreras MD -Laboratory [facility] Start: 08-24-2024 End: 08-24-2024 ambulatory Shane Contreras Facility:[facility] Start: 06-25-2024 Encounter for genera l adult medical examination without abnormal findings Shane Contreras [facility] Start: 05-29-2024 End: 05-29-2024 ambulatory Shane Contreras Facility:[facility] Start: 05-11-2024 End: 05-11-2024 ambulatory Shane Contreras Facility:[facility] Start: 09-16-2023 Non-patient / Non-visit Dr. Shane Contreras Work Phone: [facility] Start: 09-16-2023 End: 09-16-2023 Admission to same day surgery center Dr. Shane Contreras Work Phone: [facility] Start: 09-16-2023 End: 09-16-[address] Shane Contreras Work Phone: [facility] Work Phone: Start: 09-13-2023 End: 09-13-[address] Shane Contreras Work Phone: [facility] Work Phone: Start: 09-10-2023 End: 09-10-[address] Shane Contreras Work Phone: [facility] Work Phone: Start: 09-09-2023 End: 09-09-2023 Emergency department patient visit Dr. Shane Contreras Work Phone: [facility]-Emergency Department Work Phone: Start: 07-01-2023 End: 07-01-[address] Shane Contreras Work Phone: [facility] Work Phone: Start: 06-21-2023 Non-patient / Non-visit Dr. Shane Contreras Work Phone: [facility] Start: 06-21-2023 End: 06-21-2023 Admission to same day surgery center Dr. Shane Contreras Work Phone: [facility]-Endoscopy Work Phone: Start: 06-21-2023 End: 06-21-[address] Shane Contreras Work Phone: [facility] Work Phone: Start: 06-20-2023 End: 06-20-[address] Shane Contreras Work Phone: [facility] Work Phone: Start: 05-24-2023 End: 05-24-[address] Shane Contreras Work Phone: [facility] Work Phone: Start: 05-24-2023 End: 05-24-[address] Shane Contreras Work Phone: [facility]-Laboratory Work Phone: Start: 05-11-2023 Non-patient / Non-visit Dr. Shane Contreras Work Phone: [facility] Work Phone: Start: 05-10-2023 Non-patient / Non-visit Dr. Shane Contreras Work Phone: [facility] Start: 05-10-2023 End: 05-11-2023 Evaluation and management of inpatient Dr. [facility] Cont[facility]ras [facility] Work Phone: Start: 05-10-2023 Non-patient / Non-visit Dr. Shane Contreras Work Phone: [facility] Work Phone: Start: 05-09-2023 Non-patient / Non-visit Dr. Shane Contreras Work Phone: [facility] Work Phone: Start: 05-09-2023 Evaluation and management of inpatient Dr. Shane Contreras Work Phone: [facility]Medical [facility] 3 Work Phone: Start: 05-09-[address] Shane Contreras Work Phone: [facility] Work Phone: Start: 04-20-2023 End: 04-20-[address] Shane Contreras Work Phone: [facility] Work Phone: Start: 02-28-2023 ambulatory [facility] Olivier PRUITT Facility:[facility] Start: 02-28-2023 End: 02-28-2023 Office consultation new/estab patient 80 min Dane Pruitt MD Work Phone: [facility] Comment on above: Atrial septal aneury sm (Primary Dx); Patent foramen ovale; Lightheadedness; Neuropathy Start: 12-27-2022 Non-patient / Non-visit Dr. Shane Contreras Work Phone: [facility] Start: 12-27-2022 End: 12-27-[address] Shane Contreras Work Phone: [facility] Work Phone: Start: 12-27-2022 End: 12-27-[address] Shane Contreras Work Phone: [facility]Cardi[facility] Start: 12-26-2022 End: 12-26-[address] Shane Contreras Work Phone: [facility] Work Phone: Start: 12-26-2022 End: 12-26-[address] Shane Contreras Work Phone: [facility] Start: 12-18-2022 ambulatory [facility] ALVERTO Facility:[facility] Start: 12-17-2022 ambulatory [facility] Facility:[facility] Start: 12-17-2022 End: 12-17-[address] Shane Contreras Work Phone: [facility] Start: 12-12-2022 Non-patient / Non-visit Dr. Shane Contreras Work Phone: [facility] Start: 12-12-[address] Shane Contreras Work Phone: [facility] Start: 12-09-2022 End: 12-09-2022 Emergency department patient visit [facility]Emergency Department Start: 11-19-2022 End: 11-19-2022 ambulatory [facility] Work Phone: Start: 11-19-2022 End: 11-19-2022 Patient encounter procedure [facility] Start: 11-09-2022 End: 11-09-2022 ambulatory [facility] Work Phone: Start: 11-09-2022 End: 11-09-2022 Patient encounter procedure [facility] Start: 09-24-2022 End: 09-24-[address] Shane Contreras Work Phone: [facility] Work Phone: Start: 09-24-2022 End: 09-24-[address] Shane Contreras Work Phone: [facility] Start: 06-27-2022 End: 06-27-[address] Shane Contreras Work Phone: [facility] Work Phone: Start: 06-27-2022 End: 06-27-[address] Shane Contreras Work Phone: [facility] Start: 06-13-2022 End: 06-13-[address] Shane Contreras Work Phone: [facility] Start: 05-25-2022 End: 05-25-2022 ambulatory [facility] Work Phone: Start: 05-25-2022 End: 05-25-2022 Patient encounter procedure [facility] Start: 05-09-2022 End: 05-09-2022 ambulatory [facility] Work Phone: Start: 05-09-2022 End: 05-09-2022 Patient encounter procedure [facility] Start: 11-06-2021 End: 11-06-[address] Shane Contreras Work Phone: [facility] Start: 10-31-2021 End: 10-31-[address] Shane Contreras Work Phone: [facility] Start: 10-24-2021 Non-patient / Non-visit Dr. Shane Contreras Work Phone: [facility] Start: 10-24-2021 End: 10-24-[address] [facility] Start: 10-02-2021 End: 10-02-2021 Subsequent hospital visit by physician Sebastian Abbott MD Work Phone: [facility] Start: 09-22-[address] Shane weller [facility] Start: 09-15-2021 End: 09-15-[address] Shane Contreras Work Phone: [facility] Start: 09-06-2021 End: 09-06-[address] Shane Contreras Work Phone: [facility] Start: 08-31-2021 End: 08-31-2021 Emergency department patient visit Dr. Shane Contreras Work Phone: [facility]-Emergency Department Start: 09-18-2018 Patient encounter procedure MARILOU FRANK Facility:A Procedures Date Procedure Procedure Detail Performing Clinician Start: 03-04-2025 CT of chest without contrast Dr. Shane Contreras MD Work Phone: Start: 01-29-[address] Shane weller MD [...] pv miguel Abbott MD Work Phone: Start: 10-30-2021 End: [...] pv miguel Abbott MD Work Phone: Start: 10-09-2021 End: [...] End: 10-02-2021 Documentation of current medications Sharee Chaidze RN Start: 10-02-2021 End: 10-02-2021 BP scrn [...] End: 09-29-2021 Documentation of current medications Alexus Dayamifrank AT Plan of Treatment Date Care Activity Detail Author Start: 03-04-2025 CT Chest WO contrast [facility] Start: 03-04-2025 CT of chest without contrast Chest without Contrast [facility] Start: 01-29-2025 Colonoscopy w/biopsy single/multiple COLONOSCOPY AND BIOPSY [facility] Start: 01-29-2025 Patient discharge [facility] Start: 11-26-2024 Urine microalbumin/creatinine ratio measurement [facility] Start: 07-01-2024 Tetanus vaccination TETANUS [facility] Start: 09-16-2023 Patient discharge [facility] Start: 09-09-2023 [facility] Start: 06-21-2023 Colonoscopy flx dx w /collj spec when pfrmd DIAGNOSTIC COLONOSCOPY [facility] Start: 06-21-2023 Patient discharge [facility] Start: 05-11-2023 Patient discharge [facility] Start: 05-10-2023 Admission procedure [facility] Start: 05-10-2023 Referral to gastroenterology service [facility] Start: 05-09-2023 Application of intermittent pneumatic compression device [facility] Start: 05-09-2023 Following clinical p athway protocol [facility] Start: 05-09-2023 Assessment of risk o f venous thromboembolism [facility] Start: 05-09-2023 Care regimes management [facility] Start: 05-09-2023 Insertion of cathete r into peripheral vein [facility] Start: 05-09-2023 Notification of physician [facility] Start: 05-09-2023 Oxygen therapy [facility] Start: 05-09-2023 Providing care accor ding to standard [facility] Start: 05-09-2023 Provision of activit y privileges [facility] Start: 05-09-2023 [facility] Start: 05-09-2023 Verification routine [facility] Start: 05-09-2023 Hospital admission, emergency, from emergency room, medical nature [facility] Start: 05-09-2023 Admission procedure [facility] Start: 05-09-2023 Enteric precautions [facility] Start: 05-09-2023 Leukocyte reduced re d blood cells [facility] Start: 05-09-2023 [facility] Start: 05-09-2023 Giardia Antigen (TU) Giardia Antige n (TU) [facility] Start: 05-09-2023 Ova and Parasites Ova and Parasites [facility] Start: 05-09-2023 Patient referral to dietitian [facility] Start: 03-15-2023 Influenza vaccination INFLUENZA VACC INE (#1) [facility] Start: 12-17-2022 Patient referral [facility] Work Phone: Start: 09-09-2022 COVID-19 VACCINE (3 - Pfizer series) COVID-19 VACCINE (3 - Pfizer series) [facility] Start: 10-30-2021 End: 10-30-2021 Patient encounter procedure Appointment [facility] Work Phone: Start: 10-09-2021 End: 10-09-2021 Patient encounter procedure Appointment [facility] Work Phone: Start: 10-02-2021 End: 10-02-2021 Patient encounter procedure Appointment [facility] Work Phone: Start: 09-29-2021 End: 09-29-2021 Patient encounter procedure Appointment [facility] Work Phone: Start: 09-29-2021 End: 03-18-2022 Radex hand minimum 3 views XR HAND 3+ VWS-RT [facility] Work Phone: Start: 2021 Abdominal aortic ane urysm screening ABDOMINAL AORTIC ANEURYSM HIGH RISK SCREEN [facility] Start: 2021 Pneumococcal vaccination PNEUM OCOCCAL VACCINE SERIES (1 - PCV) [facility] Start: 03-15-2021 Influenza vaccination Flu vaccine (# 1) [facility] Start: 2006 Prostate specific an tigen measurement PROSTATE CANCER SCREENING DISCUSSION [facility] Start: 2006 Zoster vaccine hzv l rachel for subcutaneous use ZOSTER (SHINGLES) VACCINE (1 of 2) [facility] Start: 2001 Screening for malign ant neoplasm of colon COLORECTAL CANCER SCREENING DISCUSSION [facility] Start: 1996 Lipid panel LIPID SCREENING [facility] Start: 1961 COVID-19 Vaccine (1) COVID-19 Vaccin e (1) [facility] Start: 1956 Hepatitis C screening HEPATITI S C VIRUS SCREENING [facility] Bilirubin measuremen t, urine [facility] Colonoscopy [facility] Creatinine [Mass/vol ume] in Urine collected for unspecified duration [facility] End: 10-02-2021 Culture, Aerobic Bacteria with [...] Work Phone: Hemoglobin [Presence ] in Urine [facility] Measurement of keton es in urine using dipstick [facility] Microalbumin [Mass/v olume] in Urine [facility] Microscopic urinalysis [facility] Ova and parasites identified in Unspecified specimen by Light microscopy [facility] Patient Education [facility] Work Phone: Patient referral [facility] Work Phone: pH of Urine [facility] Specific gravity of Urine [facility] Urinalysis, blood, qualitative [facility] Urine dipstick for glucose [facility] Urine dipstick for leukocyte esterase [facility] Urine dipstick for nitrite [facility] Urine dipstick for protein [facility] Urine examination [facility] Urine microscopy: epithelial cells [facility] Urine Microscopy: wh ite cells [facility] Urobilinogen [Presen ce] in Urine [facility] Immunizations Immunization Date Immunization Notes Care Provider Fa [facility] 05-04-2024 influenza, seasonal, injectable, preservative free Dr. Shane Contreras MD Work Phone: [facility] 05-07-2022 influenza, injectabl e, quadrivalent, preservative free Dr. Shane Contreras Work Phone: [facility] 05-07-2022 influenza, seasonal, injectable [facility] 05-07-2022 influenza virus vaccine, unspecified formulation Dane Pruitt MD Work Phone: [facility] 06-28-2021 Covid (Moderna) Dr. Shane malagon Work Phone: [facility] 05-01-2021 influenza, injectabl e, quadrivalent, preservative free Dr. Shane Contrreas Work Phone: [facility] 05-01-2021 influenza, seasonal, injectable Dr. Shane Contreras Work Phone: [facility] 08-09-2020 Covid (Moderna) Dr. Shane malagon Work Phone: [facility] 07-12-2020 Indianaid (Moderna) Dr. Shane malagon Work Phone: [facility] 04-20-2020 influenza, injectabl e, quadrivalent, preservative free Dr. Shane Contreras Work Phone: [facility] 04-20-2020 influenza, seasonal, injectable Dr. Shane Contreras Work Phone: [facility] 05-27-2019 influenza, injectabl e, quadrivalent, preservative free Dr. Shane Contreras Work Phone: [facility] 05-27-2019 influenza, seasonal, injectable Dr. Shane Contreras Work Phone: [facility] 05-14-2018 influenza, injectabl e, quadrivalent, preservative free Dr. Shane Contreras Work Phone: [facility] 05-14-2018 influenza, seasonal, injectable Dr. Shane Contreras Work Phone: [facility] 05-22-2017 influenza, injectabl e, quadrivalent, preservative free Dr. Shane Contreras Work Phone: [facility] 05-22-2017 influenza, seasonal, injectable Dr. Shane Contreras Work Phone: [facility] 05-09-2016 influenza, injectabl e, quadrivalent, preservative free Dr. Shane Contreras Work Phone: [facility] 05-09-2016 influenza, seasonal, injectable Dr. Shane Contreras Work Phone: [facility] 05-04-2015 influenza, injectabl e, quadrivalent, preservative free Dr. Shane Contreras Work Phone: [facility] 05-04-2015 influenza, seasonal, injectable Dr. Shane Contreras Work Phone: [facility] 05-13-2014 influenza, injectabl e, quadrivalent, preservative free Dr. Shane Contreras Work Phone: [facility] 05-13-2014 influenza, seasonal, injectable Dr. Shane Contreras Work Phone: [facility] 07-23-[address] Shane Contreras Work Phone: [facility] Payers Date Payer Category Payer Self-pay [id number] 2022 Medicare MEDICARE MEDICAR E A AND B [id number] 2022-Present [address] [place] [address] [id number] 2021 Medicare [id number] 2021 Unknown [id number] 2021 Unknown GENERIC PAYOR ME DICARE SUPPLEMENT [id number] 2021-Present [phone] [address] [place] [address] [id number] 2016 Private Health Insurance [id number] 1955 Unknown [id number] [id number]. 627 1955 Unknown [id number] 2.0.1.630661.3.579.2. 594 1955 Unknown [id number] 2.16840.1.424610.3.579.2. 594 1955 Unknown [id number] 2.16840.1.563018.3.579.2. 594 1955 Unknown [id number] 2.16840.1.884401.3.579.2. 594 Unknown [id number] 2.16.840.1.170519.3.579.2. 462 Unknown [id number] 2.16.840.1.404327.3.579.2. 462 Unknown [id number] 2.16.840.1.368500.3.579.2. 462 Unknown [id number] 2.16.840.1.103639.3.579.2. 462 Unknown [id number] 2.16.840.1.762223.3.579.2. 462 Unknown [id number] 2.16.840.1.247564.3.579.2. 462 Unknown [id number] 2.16.840.1.197856.3.579.2. 462 Unknown [id number] 2.16.840.1.997374.3.579.2. 462 Unknown [id number] 2.16.840.1.148467.3.579.2. 462 Unknown [id number] 2.16.840.1.485918.3.579.2. 462 Unknown [id number] 2.16.840.1.544273.3.579.2. 462 Social History Date Type Detail Facility Start: 10-31-2021 End: 09-13-2023 Assertion Unknown if ever smoked [facility] Work Phone: Start: 1955 Sex Assigned At Not on file [facility] Work Phone: Start: 12-29-2017 None [facility] Start: 12-29-2017 Spouse/ Signif icant Other [facility] Start: 1955 Sex Assigned At Male [facility] Start: 02-28-2023 End: 01-27-2025 Tobacco smoking status NHIS Never smoked tobacco [facility] Start: 02-28-2023 Tobacco use and exposure Smokeless tobacco non-user [facility] Start: 2023 Alcohol intake Ex-drinker (finding) [facility] Start: 02-28-2023 History of Social function [facility] Start: 02-28-2023 Tobacco use panel [facility] NEGATED: Highlighted rowStart: 09-29-2021 End: 09-29-2021 Alcohol use Alcohol use [facility] Work Phone: NEGATED: Highlighted rowStart: 09-29-2021 End: 09-29-2021 Details of drug misuse behavior Details of drug misuse behavior [facility] Work Phone: NEGATED: Highlighted rowStart: 09-29-2021 End: 09-29-2021 How many days of moderate to strenuous exercise, like a brisk walk, did you do in the last 7 days? How many days of moderate to strenuous exercise, like a brisk walk, did you do in the last 7 days? [facility] Work Phone: NEGATED: Highlighted rowStart: 09-29-2021 End: 09-29-2021 Assertion Never smoker [facility] Work Phone: Medical Equipment Procedure Code Equipment Code Equipment Origin al Text Equipment Identifier Dates Repair, hernia, inguinal, with mesh insertion ([id number]) Extra-gynaecologic al surgical mesh, synthetic polymer, non-bioabsorbable ()[id number] FDA Start: 09-16-2023 Repair, hernia, inguinal, with mesh insertion Extra-gynaecologic al surgical mesh, synthetic polymer, non-bioabsorbable ()[id number] FDA Start: 09-16-2023 Repair, hernia, inguinal, with mesh insertion Ligation clip, metallic ()[id number]( [id number] FDA Start: 09-16-2023 Goals Date Patient Goal Desired Activity /State Functional Status Date Assessment Result Facility 05-11-2023 Functional status Ambulates [facility] Work Phone: Mental Status Date Assessment Result Facility 01-29-2025 Cognitive function Level Of Consciousness Drowsy [facility] Work Phone: 09-16-2023 Cognitive function Touch/Shaking [facility] Work Phone: 09-16-2023 Cognitive function Patient Binta bourgeois Person;Place;Time [facility] Work Phone: 06-21-2023 Cognitive function Voice/Name [facility] Work Phone: 05-11-2023 Cognitive function Voice/Name [facility] Work Phone: Clinical Notes 09-29-2021 to 03-05-2025 Note Date & Type Note Facility 03-05-2025 Radiology Diagnostic study note [facility] Imaging Services [address], [place] [address] Chest without Contrast MR#: [id number] Acct: [id number] Name: TANI WILLIAMSON Rep #: [id number] : 1955 M 69 From: Damon Allen MD PCP: Dr. Shane Contreras MD Status: REG C TRUDY Study:Chest without Contrast Date of Exam: 03/04/25 Exam# [id number] Ordering Dr: All Stephens MD PROCEDURE: CHEST WITHOUT CONTRAST 03/04/2025 REASON FOR EXAM: MODERATE PERSISTANT ASTHMA Three-month history of cough and mucus. TECHNIQUE: Chest CT without contrast. Coronal and Sagittal reconstruction series were provided. One or more dose reduction techniques were used (e.g., Automated exposure control, adjustment of the mA and/or kV according to patient size, use of iterative reconstruction technique RADIATION DOSE SUMMARY: CTDlvol: 18.18 mGy DLP: 681.52 mGycm COMPARISON: Prior chest radiograph dated December 09, 2022. FINDINGS: Hardware: None Lymph nodes: Small benign-appearing bilateral axillary lymph nodes. Small mediastinal lymph nodes. Heart and Vasculature: The heart is not enlarged. Coronary Artery Calcifications: Present Lungs and Airways: Lungs are clear. Pleura: No evidence of pleural effusion. Upper Abdomen: Unremarkable Bones: Degenerative changes of the thoracic spine. CT/Chest without Contrast IMPRESSION: Coronary artery calcification (CAC) is is present The lungs are clear. Reading Location: [id number] CC: Dr. Shane Contreras MD; Dr. All Stephens MD ~ Dough Raiser: Signed [facility] 01-29-2025 Consult note Note Date/Time January 29, 2025 9:51am [facility] Medical Records Department [address] [place] [address] Pre-Anesthesia Evaluation 01/29/25926 MR#: [id number] Acct: [id number] Name: TANI WILLIAMSON Rep #:[id number] : 1955 69 From: Luiz Dawson MD PCP: Dr. Shane Contreras MD Status:REG S DC Y Race: C Location: [place] [address] ASA Classification* ASA Classification ASA Classification: 2 [...] 09/16/23 TSH 2.140 uIU/mL (0.300-4.200) 11/26/24 09:45 11/12 12/06 COAG PT 13.3 SECONDS (11.7-14.9) 12/29/17 13:24 Pre-Assessment Diagnosis/Proposed Procedure Planned Operative Procedure(s): CSCOPE Anesthesia History Anesthesia History - flosser: Anesthesia History - flosser Hx Hospitalization No 01/27/25 12:10 Any Problems [...] sips of water?: No PONV PONV - flosser: PONV - flosser Female No 01/27/25 12:10 HX of Motion [...] 01/29/25 08:46 Respiratory Assessment Respiratory Assessment - flosser: Respiratory Tract Infection Hx - flosser Hx Respiratory Tract Infection No 01/27/25 12:10 STOP Sleep Apnea STOP Sleep Apnea - flosser: STOP Sleep Apnea - flosser Hx Hypertension Yes: CONTROLLED WITH MED 01/27/25 [...] Tobacco Use History Tobacco Use History - flosser: Tobacco Use History - flosser Tobacco Use Smoking Status Never smoker 01/27/25 12:10 Hx Tobacco Use No 01/27/25 12:10 Years Smoking Packs Smoked per Day Smoking Cessation Date was within the last 15 years Hx Smoking Cessation Date Hx Smoking Cessation Counseling Hematologic Medial History Hematologic Hx - flosser: 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 01/29/25 0951 <Electronically signed by Luiz bell MD> Date _ Luiz Bustos Signature: Date CC: ~ Signed [facility] Work Phone: 1(834) 357-670507-18-2025 Consult note [facility] Medical Records Department [address] [place] [address] Anesthesia Postop Eval I 01/29/25 1045 MR#: [id number] Acct: [id number] Name: TANI WILLIAMSON Rep #:[id number] : 1955 69 From: Raffi Zhong PCP: Dr. Shane Contreras MD Status:REG S DC Y Race: C Location: [place] [address] Anesthesia: Postop Eval I Current Vital Signs [...] Raffi Bustos Signature: Date CC: ~ Signed [facility]07-18-2025 Procedure note [facility] Medical Records Department [address] [place] [address] Colonoscopy Report MR#: [id number] Acct: [id number] Name: TANI WILLIAMSON Rep #:[id number] : [...] present medications. Procedure Code(s): --- Professional --- 62141, Colonoscopy, flexible; with biopsy, single or multiple CPT copyright 2021 [employer]. All rights reserved. The codes documented in this report are preliminary and upon diet tech review may be revised to meet current compliance requirements. Nadir Martines DO 01/29/2025 10:42:20 AM This report has been signed electronically. Number of Addenda: 0 Note Initiated On: 01/29/2025 10:12 AM 01/29/25 1042 Date _ Nadir Martines DO Cosigner Signature: Date (if indicated) CC: Dr. Shane Contreras MD; Nadir Martines DO ~ Date Dictated: 01/29/25 1012 Date Transcribed: Dough Raiser: RF Signed [facility]07-18-2025 Procedure note [facility] Medical Records Department [address] [place] [address] Operative Report - CC Letter MR#: [id number] Acct: [id number] Name: TANI WILLIAMSON Rep #:[id number] : 1955 69 From: Nadir Martines DO PCP: Dr. Shane Contreras MD Status:REG S DC 01/29/2025 Shane Contreras MD [address] [place] [address] Re : Colonoscopy procedure for Tani Williamson [...] ~ Date Dictated: 01/29/25 1012 Date Transcribed: Dough Raiser: RF Signed [facility]07-18-2025 History and physical note [facility] Medical Records Department [address] [place] [address] History & Physical Exam 01/29/25 1007 MR#: [id number] Acct: [id number] Name: TANI WILLIAMSON Rep #:[id number] : 1955 69 From: Nadir Martines DO PCP: Dr. Shane Contreras MD Status:REG S DC Location: [address] HPI - General General Date of Admission: [...] with Dr. Gerber. Has follow up questions. [facility] Medical History Indwelling urethral catheter present Diabetes [...] 75 mcg capsule 75 mcg PO DAILY 12/07/23 07/17/25 History losartan 100 mg tablet 100 mg [...] Shane Contreras MD; Nadir Martines DO~ Signed [facility]07-18-2025 [facility] Medical Records Department [address] [place] [address] History Physical Exam 01/29/25 1007 MR#: [id number] Acct: [id number] Name: TANI WILLIAMSON Rep #: [id number] : 1955 69 From: Nadir Martines DO PCP: Dr. Shane Contreras MD Status:[facility] Location: [place] [address] HPI - General General Date of Admission: [...] with Dr. Gerber. Has follow up questions. [facility] Medical History Indwelling urethral catheter present Diabetes [...] sounds, soft to pal (more content not included)...[facility]07-18-2025 Consult note [facility] Medical Records Department [address] [place] [address] Pre-Anesthesia Evaluation 01/29/25926 MR#: [id number] Acct: [id number] Name: TANI WILLIAMSON Rep #:[id number] : 1955 69 From: Luiz Dawson MD PCP: Dr. Shane Contreras MD Status:REG S DC Y Race: C Location: [place] [address] ASA Classification* ASA Classification ASA Classification: 2 [...] 09/16/23 TSH 2.140 uIU/mL (0.300-4.200) 11/26/24 09:45 11/12 12/06 COAG PT 13.3 SECONDS (11.7-14.9) 12/29/17 13:24 Pre-Assessment Diagnosis/Proposed Procedure Planned Operative Procedure(s): CSCOPE Anesthesia History Anesthesia History - flosser: Anesthesia History - flosser Hx Hospitalization No 01/27/25 12:10 Any Problems [...] sips of water?: No PONV PONV - flosser: PONV - flosser Female No 01/27/25 12:10 HX of Motion [...] 01/29/25 08:46 Respiratory Assessment Respiratory Assessment - flosser: Respiratory Tract Infection Hx - flosser Hx Respiratory Tract Infection No 01/27/25 12:10 STOP Sleep Apnea STOP Sleep Apnea - flosser: STOP Sleep Apnea - flosser Hx Hypertension Yes: CONTROLLED WITH MED 01/27/25 [...] Tobacco Use History Tobacco Use History - flosser: Tobacco Use History - flosser Tobacco Use Smoking Status Never smoker 01/27/25 12:10 Hx Tobacco Use No 01/27/25 12:10 Years Smoking Packs Smoked per Day Smoking Cessation Date was within the last 15 years Hx Smoking Cessation Date Hx Smoking Cessation Counseling Hematologic Medial History Hematologic Hx - flosser: 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 Hx of Blood Transfusion No 01/27/25 12:10 [...] confused, unrespo /Reproduction History /Reproductive History - flosser: /Reproductive Hx- flosser Hx Now No 01/27/25 12:10 Gestational Age [...] MD Cosigner Signature: Date CC: ~ Signed [address]16-2025 Evaluation note* Diagnosis Onset Date Resolution Status Admit Date Diverticulitis acute November 27, 2024 3:21pm [facility] Work Phone: 1(103) 142-887005-16-2025 Evaluation note* Diagnosis Onset Date Resolution Status Admit Date Diverticulitis acute November 27, 2024 3:21pm Diverticulitis acute January 29, 2025 8:19am Diverticulosis chronic January 29, 2025 8:19am [facility] Work Phone: 1(572) 117-864303-04-2024 Discharge summary Author All Gerber [facility] September 16, 2023 5:49pm Note Date/Time September 16, 2023 1:52 pm [facility] Medical Records Department [address] [place] [address] Instructions for Home/Discharge Instructions 09/16/23 1351 MR#: [id number] Acct: [id number] Name: TANI WILLIAMSON Rep #:[id number] : [...] Up With: All Gerber MD When: Call [phone] to make an appointment to be seen [...] can be placed): Home, Self Care 09/16/23 9779<Electronically signed by All Gerber MD>All Gerber MD CC: Dr. Shane Contreras MD ~ Signed [facility] Work Phone: 1(894) 825-609803-04-2024 Procedure [facility] 09-16-2023 History and physical note Author All Gerber [facility] September 16, 2023 3:12pm Note Date/Time September 16, 2023 1:50 pm [facility] Medical Records Department [address] [place] [address] [place] [address] History & Physical Exam 09/16/23 1349 MR#: [id number] Acct: [id number] Name: TANI WILLIAMSON Rep #:[id number] : 1955 68 From: All Gerber MD PCP: Dr. Shane Contreras MD Status:REG S DC Location: [place] [address] History and Physical Date of Admission: 09/16/23 Chief Complaint: ED f/u Boom Crane Operator Required: No Is patient in pain?: [...] mg PO BID 09/09/23 [History Confirmed 09/10/23] PFSH Medical History Abdominal pain Anxiety Asthma Back [...] notes his previous repair was laparoscopic at [facility] approximately 8 years ago. Patient notes he [...] him, so he [facility]. A CT scan of the abdomen/pelvis [...] found incidentally during a cardiac work-up at [facility]. Patient notes the department head [employer] did not recommend starting a daily 81 [...] He was seen by hernia specialist in [facility] and it was felt that his recurrent [...] orally twice daily had been seen by albacore fishing boat crewman Dr. Schmitz Friend. CT scan suggestedsome possible [...] previous laparoscopic inguinal hernia repair performed at [facility] approximately 8 years ago. Just within the past 6 months he has noticed a recurrence. He went to hernia specialist in [facility] during this time. Of abdominal pain and [...] laparoscopic left inguinal hernia repair done at [facility] about 8 years ago. Patient's colonoscopy he [...] healthy appearing, comfortable and no acute distress [facility] Head: normal to inspection Eyes General: [...] hernia repair. All Gerber M.D., F.A.C.S. 09/16/23 3792 <Electronically signed by All Gerber MD> Cosigner Signature (if applicable): CC: Dr. Shane Contreras MD; Dr. All Gerber MD~ Signed [facility] Work Phone: 1(403) 311-989512-08-2023 History and physical note Author All Gerber [facility] June 21, 2023 5:46am Note Date/Time June 21, 2023 5 :46am [facility] Medical Records Department [address] [place] [address] History & Physical Exam 06/21/23 0546 MR#: [id number] Acct: [id number] Name: TANI WILLIAMSON Rep #:[id number] : 1955 67 From: All Gerber MD PCP: Dr. Shane Contreras MD Status:REG S RI Location: [place] [address] History and Physical Date of Admission: 06/21/23 Visit Reasons: DIVERTICULITIS Chief Complaint: Abdominal Pain Boom Crane Operator Required: No Is patient in pain?: [...] 2 spray intranasalBID 06/20/23 [History Confirmed 06/20/23] [facility] History (Updated 06/20/23 @ 13:43 by [...] cancerFather Heart disease Cancer Kidney Social History (Reviewed 06/20/23 @ 12:56 by Nia Guaman Smoking Status: Never smoker alcohol intake: never substance use type: does not use caffeine: No (Over the last 3 weeks) HPI HPI HPI: 57-year-old gentleman who presents today to discuss left-sided abdominal pain and episode of rectal bleeding. The patient states that 6 weeks ago he had some vague left abdominal pain. He was seen by hernia specialist in [facility] and it was felt that his recurrent [...] orally twice daily had been seen by albacore fishing boat crewman Dr. Schmitz Friend. CT scan suggestedsome possible [...] previous laparoscopic inguinal hernia repair performed at [facility] approximately 8 years ago. Just within the past 6 months he has noticed a recurrence. He went to hernia specialist in [facility] during this time. Of abdominal pain and [...] Exam Const General: cooperative and healthy appearing [facility] Head: normal to inspection Eyes General: [...] tomorrow morning. Copy: Dr. Shane Gerber M.D., F.A.C.S. I have examined the patient and the H&P has been reviewed. There are no clinicalchanges since date of exam. All Gerber M.D., F.A.C.S. 06/21/23 0546 <Electronically signed by All Gerber MD> Cosigner Signature (if applicable): CC: Dr. Shane Contreras MD; Dr. All Gerber MD~ Signed [facility] Work Phone: 1(291) 656-757412-08-2023 Procedure [facility] 06-21-2023 Procedure [facility]10-28-2023 Discharge summary Author Todd Conner [facility] May 11, 2023 1:34pm Note Date/Time May 11, 2023 1 :28pm [facility] Medical Records Department [address] [place] [address] Discharge Summary 05/11/23 1325 MR#: [id number] Acct: [id number] Name: TANI WILLIAMSON Rep #:[id number] : 1955 67 From: Todd Conner DO PCP: Dr. Shane Contreras MD Status:ADM I N Location: [facility] [id number] Providers Date of Admission: 05/10/23 Primary Care Physician: Dr. Shane Contreras MD Consultations 05/10/23 01:10 Consult: Gastroenterology Routine Consulting Provider: [facility] Reason for Consult: GI bleed EMERGENT [...] % (Auto) 57.2, Lymph % (Auto) 26.9, Beadle% (Auto) 11.1 H, Eos % (Auto) 3.5, [...] - Final D/C Instructions Discharge Diet: - (Barton diet, advance as tolerated.) Call your doctor [...] PO DAILY oxymetazoline [Afrin (oxymetazoline)] 0.05 % [place],Non-Aerosol 2 spray INTRANASAL Q12H rosuvastatin 5 mg [...] 05/11/23 at 1334 Visit Charges Inpatient E&M: 95244 Disch Hosp >30min 05/11/23 1334<Electronically signed by Todd Conner DO> Cosigner Signature (if applicable): cc: Dr. Todd Conner DO; Dr. Shane Contreras MD ~* Signed [facility] Work Phone: 1(102) 484-834210-28-2023 Progress note Author Todd Conner [facility] May 11, 2023 1:25pm Note Date/Time May 11, 2023 8 :20am [facility] Medical Records Department [address] [place] [address] Progress Note - Hospitalist 05/11/23817 MR#: [id number] Acct: [id number] Name: TANI WILLIAMSON Rep #:[id number] : 1955 67 From: Todd Conner DO PCP: Dr. Shane Contreras MD Status:ADM I N Location: [place] [address] Reason for Visit Reason for Visit: Diagnoses [...] Cosigner Signature (if applicable): CC: ~ Signed [facility] Work Phone: 1(386) 181-241910-27-2023 Consult note Author Nadir Friend [facility] May 10, 2023 4:40pm Note Date/Time May 10, 2023 4 :35pm [facility] Medical Records Department [address] [place] [address] Consultation - GI 05/10/23 1634 MR#: [id number] Acct: [id number] Name: TANI WILLIAMSON Rep #:[id number] : 1955 67 From: Nadir Martines DO PCP: Dr. Shane Contreras MD Status:ADM I NO Location: [place] 969182-1 HPI Consult Data Date of Consult: 05/10/23 [...] with small lymph nodes indicating sclerosing mesenteritis. [facility] Medical History Asthma COVID-19 COVID-19 Essential hypertension [...] 73.6 H, Lymph % (Auto) 15.6 L, Beadle % (Auto) 9.5, Eos % (Auto) 0.6, [...] (Auto) 72.1 H, Lymph % (Auto) 15.8L, Beadle % (Auto) 10.0, Eos % (Auto) 0.7, [...] diabetes mellitus without complication: QUALIFIERS: Diabetes mellitus termite treater helper insulin use: without termite treater helper use Qualified Code(s): E11.9 - Type 2 [...] this episode. Charges/Coding Visit Charges Inpatient E&M: 02916 Init Hosp L3 05/10/23 1640 <Electronically signed by Nadir Martines DO> Cosigner Signature (if applicable): CC: Dr. Woodrow Fox MD; Dr. Shane Contreras MD~ Signed [facility] Work Phone: 1(223) 987-652210-27-2023 Progress note Author Todd Conner [facility] May 10, 2023 1:58pm Note Date/Time May 10, 2023 7 :56am [facility] Medical Records Department [address] [place] [address] Progress Note - Hospitalist 05/10/23 0754 MR#: [id number] Acct: [id number] Name: TANI WILLIAMSON Rep #:[id number] : 1955 67 From: Todd Conner DO PCP: Dr. Shane Contreras MD Status:ADM I NO Location: [place] [address] Reason for Visit Reason for Visit: Diagnoses [...] 73.6 H, Lymph % (Auto) 15.6 L, Beadle % (Auto) 9.5, Eos % (Auto) 0.6, [...] (Auto) 72.1 H, Lymph % (Auto) 15.8L, Beadle % (Auto) 10.0, Eos % (Auto) 0.7, [...] of incarceration or strangulation. Electronically Signed: Torsten SarahArvind Savage DO at 20:56 EDT , Physical Exam Const [...] prophylaxis: SCDs. Charges/Coding Visit Charges Inpatient E&M: 33584 Subs Hosp L2 05/10/23 1358 <Electronically signed by Todd Conner DO> Cosigner Signature (if applicable): CC: ~ Signed [facility] Work Phone: 1(583) 575-707710-27-2023 History and physical note Author Woodrow Fox [facility] May 09, 2023 10:21pm Note Date/Time May 09, 2023 9 :44pm [facility] Medical Records Department [address] [place] [address] H&P Exam - Hospitalist 05/09/232141 MR#: [id number] Acct: [id number] Name: TERITANI JACOBST Rep #:[id number] : 1955 67 From: Woodrow Fox MD PCP: Dr. Shane Contreras MD Status:ADM I NO Location: MS3 DT598-4 [facility] - General General Date of Admission: 05/09/23 [...] whether he might have had C. difficile. [facility] Medical History Asthma COVID-19 COVID-19 Essential hypertension [...] 73.6 H, Lymph % (Auto) 15.6 L, Beadle % (Auto) 9.5, Eos % (Auto) 0.6, [...] diabetes mellitus without complication: QUALIFIERS: Diabetes mellitus termite treater helper insulin use: without termite treater helper use Qualified Code(s): E11.9 - Type 2 [...] 70 minutes. Charges/Coding Visit Charges Inpatient E&M: 96720 Init Hosp L3 05/09/232220 <Electronically signed by Woodrow Fox MD> Cosigner Signature (if applicable): CC: Dr. Woodrow Fox MD; Dr. Shane Contreras MD~ Signed [facility] Work Phone: 1(736) 818-347110-26-2023 Discharge summary Author Calvin Guzman [facility] May 09, 2023 9:57pm Note Date/Time May 09, 2023 7 :34pm [facility] Medical Records Department [address] [place] [address] Emergency Department Summary 05/09/23 MR#: [id number] Acct: [id number] Name: TANI WILLIAMSON Rep #:[id number] : 1955 67 From: Calvin Guzman MD PCP: Dr. Shane Contreras MD Status:ADM I NO Location: [place] [address] HPI HPI - GI History of Present [...] symptoms. No chest pain, dizziness, or lightheadedness. [facility] Medical History Asthma COVID-19 COVID-19 Essential [...] 73.6 H Lymph % (Auto) 15.6 L Beadle % (Auto) 9.5 Eos % (Auto) 0.6 [...] your Primary Care Provider. Call [facility] ([phone]) or report to the closest Emergency Room. Call 911 if necessary. 05/09/232156 <Electronically signed by Calvin Guzman MD> Cosigner Signature (if applicable): CC: Dr. Shane Contreras MD ~ Signed [facility] Work Phone: 1(589) 509-440610-26-2023 Discharge summary Author Calvin Guzman [facility] May 09, 2023 9:57pm Note Date/Time May 09, 2023 7 :34pm [facility] Medical Records Department [address] [place] [address] Emergency Department Summary 05/09/23 MR#: [id number] Acct: [id number] Name: TANI WILLIAMSON Rep #:[id number] : 1955 67 From: Calvin Guzman MD PCP: Dr. Shane Contreras MD Status:ADM I NO Location: [address] HPI HPI - GI History of Present [...] symptoms. No chest pain, dizziness, or lightheadedness. [facility] Medical History Asthma COVID-19 COVID-19 Essential hypertension Exposure to COVID-19 virus GERD (gastroesophageal reflux disease) History of skin cancer Hypothyroidism Lower GI bleeding LKUE on CPAP Tachycardia Type 2 diabetes mellitus [...] 73.6 H Lymph % (Auto) 15.6 L Beadle % (Auto) 9.5 Eos % (Auto) 0.6 [...] your Primary Care Provider. Call [facility] ([phone]) or report to the closest Emergency Room. Call 911 if necessary. 05/09/232156 <Electronically signed by Calvin Guzman MD> Cosigner Signature (if applicable): CC: Dr. Shane Contreras MD ~ Signed [facility] Work Phone: 1(567) 941-830608-17-2023 History of Present illness Narrative* Dane Pruitt MD - 02/28/2023 12:30 PM EDT Tani Williamson is a very pleasant 67 y.o. male who has been referred by Dr Emery Estrada for evaluation of patent foramen ovale (PFO). 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 Patient presented to the ED 11/2022 [...] mouth daily. Cholecalciferol (Vitamin D3) 50 MCG (2000 UT) [...] clinic and continue to follow with primary department head junior [employer] and primary care provider. * Hailey Castillo [...] overall plan of care [facility]* Patient Instructions* Hailey Castillo RN - 02/28/2023 12:30 PM EDT Recommendations from Dr Pruitt at your appt today: Please continue current medications. Follow up with Dr Estrada. [facility] My chart is an option for non-urgent communication to your department head [employer]. To contact the office, please call [phone]. documented in this encounterC[facility]03-18-2022 Instructions* Instruction Description Start Date Patient advised to follow-up with Primary Care Physician for BMI management. [facility] Work Phone: consult note Author Raffi Zhong [facility] Note Date/Time January 29, 2025 10:4 6am [facility] Medical Records Department [address] [place] [address] Anesthesia Postop Eval I 01/29/25 1045 MR#: [id number] Acct: [id number] Name: TANI WILLIAMSON Rep #:[id number] : 1955 69 From: Raffi Zhong PCP: Dr. Shane Contreras MD Status:REG S DC Y Race: C Location: [place] [address] Anesthesia: Postop Eval I Current Vital Signs [...] by Raffi Zhong > Date _ Raffi Zhong Cosignmaged Signature: Date CC: ~ Signed [facility] Work Phone: Evaluation noteThere may be information available, but it has not been provided by the sender.[facility] Work Phone: Evaluation note* Diagnosis Onset Date Resolution Status Tachycardia acute Essential hypertension chron ic Tachycardia acute Essential hypertension chron ic [facility] Work Phone: Evaluation noteNo assessment information available [facility] Work Phone: Evaluation note* Diagnosis Onset Date Resolution Status COVID-19 acute [facility] Work Phone: Evaluation note* Diagnosis Onset Date Resolution Status PFO with atrial septal aneurysm acute [facility] Work Phone: Evaluation note* Diagnosis Atrial septal aneurysm- Primary Aneurysm of heart (wall) Patent foramen ovale Ostium secundum type atrial septal defect Lightheadedness Dizziness and giddiness Neuropathy Mononeuritis of unspecified site [facility] this encounter [facility] Diagnosis Onset Date Resolution Status Sore throat acute Acute diverticulitis acute Diverticular hemorrhage acut e Diverticulosis acute Type 2 diabetes mellitus without complication acute Essential hypertension [facility] Work Phone: Evaluation note* Diagnosis Onset Date Resolution Status Sore throat acute Acute blood loss anemia acut e Acute diverticulitis acute Diverticular hemorrhage acut e Diverticulosis acute Type 2 diabetes mellitus without complication acute Essential hypertension chron [facility] Work Phone: Evaluation note* Diagnosis Onset Date Resolution Status Sore throat acute Acute blood loss anemia reso lved Acute diverticulitis resolve d Diverticular hemorrhage reso lved Diverticulosis resolved [facility] Work Phone: Evaluation note* Diagnosis Onset Date Resolution Status Sore throat acute Acute blood loss anemia reso lved Acute diverticulitis resolve d Diverticular hemorrhage reso lved Diverticulosis resolved Diverticulitis acute Lower GI bleeding acute Recurrent left inguinal hernia acute [facility] Work Phone: Evaluation note* Diagnosis Onset Date Resolution Status Diverticulitis acute Lower GI bleeding acute Recurrent left inguinal hernia acute Diverticulitis acute Recurrent left inguinal hernia acute Diverticulosis chronic Recurrent left inguinal hernia acute Abscess of right thigh acute [facility] Work Phone: Evaluation note* Diagnosis Onset Date Resolution Status Admit Date Diverticulitis acute November 27, 2024 3:21pm [facility] Work Phone: History and physical note Author Woodrow Fox [facility] May 09, 2023 10:21pm Note Date/Time May 09, 2023 9 :44pm [facility] Medical Records Department [address] [place] [address] H&P Exam - Hospitalist 05/09/232141 MR#: [id number] Acct: [id number] Name: TANI WILLIAMSON Rep #:[id number] : 1955 67 From: Woodrow Fox MD PCP: Dr. 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 difficile. [facility] Medical History Asthma COVID-19 COVID-19 Essential hypertension [...] 73.6 H, Lymph % (Auto) 15.6 L, Beadle % (Auto) 9.5, Eos % (Auto) 0.6, [...] diabetes mellitus without complication: QUALIFIERS: Diabetes mellitus termite treater helper insulin use: without termite treater helper use Qualified Code(s): E11.9 - Type 2 [...] 70 minutes. Charges/Coding Visit Charges Inpatient E&M: 95872 Init Hosp L3 05/09/232220 <Electronically signed by Woodrow Fox MD> Cosigner Signature (if applicable): CC: Dr. Woodrow Fox MD; Dr. Shane Contreras MD~ Signed [facility] Work Phone: History and physical note Author Nadir Martines [facility] Note Date/Time January 29, 2025 10:0 9am [facility] Medical Records Department [address] [place] [address] History & Physical Exam 01/29/25 1007 MR#: [id number] Acct: [id number] Name: TANI WILLIAMSON Rep #:[id number] : 1955 69 From: Nadir Martines DO PCP: Dr. Shane Contreras MD Status:REG S DC Location: [place] [address] HPI - General General Date of Admission: [...] with Dr. Gerber. Has follow up questions. [facility] Medical History Indwelling urethral catheter present Diabetes [...] Shane Contreras MD; Nadir Martines DO~ Signed [facility] Work Phone: Hospital Discharge instructions Additional Instructions Please contact your PCP to have a stress test and echo done ARA. If you have new or worsening symptoms prior to that come back to the ER. Best [facility]WP[facility] Work Phone: Instructions* Instruction Description Start Date Patient advised to follow-up with Primary Care Physician for BMI management. [facility] [employer] [facility] Work Phone: Instructions* Instruction Description Start Date Patient advised to follow-up with Primary Care Physician for BMI management. [facility] Work Phone: Instructions* Instruction Description Start Date Patient advised to follow-up with Primary Care Physician for BMI management. [facility] Work Phone: Reason for referral (narrative)No reason for referral information availableCahone Medical Services Work Phone: Summary Purpose Family History No Family History Records Found Relationship Condition Age at Onset Recorded Date/T elpidio mother Malignant neoplasm of breast Unknown father Cardiac disease Unknown Malignant neoplasm Unknown Advance Directives No Advanced Directives Records Found Advance Directive Response Recorded Date/ Time Living Will No August 31, 022 12:21pm Power of Court Bailiff Or Sheriff No August 31, 2021 12:21pm Advance Directive Response Recorded Date/ Time Living Will No August 31 11:21am Power of Court Bailiff Or Sheriff No August 31, 2021 11:21am Advance Directive Response Recorded Date/ Time Living Will No December 09, 2022 4 :04pm Power of Court Bailiff Or Sheriff No December 09, 2022 4:04pm Advance Directive Response Recorded Date/ Time Living Will No May 09 7:27pm Power of Court Bailiff Or Sheriff No May 09, 2023 7:27pm Advance Directive Response Recorded Date/ Time Name of Medical Power of Court Bailiff Or Sheriff Kalani Williamson May 09, 2023 10:41pm Living Will Yes May 09 10:41pm Power of Court Bailiff Or Sheriff Yes May 09, 2023 10:41pm Advance Directive Response Recorded Date/ Time Name of Medical Power of Court Bailiff Or Sheriff Kalani Williamson May 09, 2023 9:41pm Living Will Yes May 09 9:41pm Power of Court Bailiff Or Sheriff Yes May 09, 2023 9:41pm Advance Directive Response Recorded Date/ Time Name of Medical Power of Court Bailiff Or Sheriff Kalani Williamson May 09, 2023 9:41pm Name of Medical Power of Court Bailiff Or Sheriff EX June 20, 2023 3:00pm Living Will Yes June 20 3:00pm Power of Court Bailiff Or Sheriff Yes June 20, 2023 3:00pm Advance Directive Response Recorded Date/ Time Name of Medical Power of Court Bailiff Or Sheriff EX June 20, 2023 3:00pm Name of Medical Power of Court Bailiff Or Sheriff abbie zimmerman September 09, 2023 8:43pm Name of Medical Power of Court Bailiff Or Sheriff EX September 11, 2023 10:50am Living Will Yes September 11, 024 10:50am Power of Court Bailiff Or Sheriff Yes September 11, 2023 10:50am Advance Directive Response Recorded Date/ Time Do you have a Healthcare Power of Court Bailiff Or Sheriff? 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 Reason for Visit PFO with atrial [...] Date Diverticulitis November 27, 2024 3:21p m Chief Complaint Admit Date Diverticulitits November 27, 2024 3:21p m SPECIMEN February 24, 2025 10 :50am Moderate persistent asthma, uncomplicate d March 04, 2025 3:44pm Additional Source Comments (unrecognized sect ion and content) No Status Records FoundNo Status Records FoundNo Status Records FoundNo Status Records Found INFORMATION SOURCE (unrecogn ized section and content) DATE CREATED AUTHOR 10/17/2018 [employer] ([place]) DATE CREATED AUTHOR AUTHOR'S ORGANIZ ATION 10/10/2021 [facility] DATE CREATED AUTHOR AUTHOR'S ORGANIZ ATION 03/01/2023 [facility] DATE CREATED AUTHOR AUTHOR'S ORGANIZ ATION 03/16/2025 [facility] Reason for Visit (unrecogniz ed section [...] Specialty Diagnoses / Procedures Referred By Azra t Referred To Contact Cardiovascular Medicine Diagnoses Patent foramen ovale Aneurysm of heart Emery Estrada MD [address] [place] [address] [facility] [address] [place] [address] Referral ID Status Reason Start Date Expiration Date V isits Requested Visits Authorized [id number] New Request 12/18/2022 01/12/2024 1 1 Goals [...] Shane Contreras MD Family Provider Active Dr. Shane Contreras MD Primary Care Provider Active Team Status: Inactive Member Role Status Dates Dr. Shane Contreras MD Primary Care Provider, Referring Provider Active Marilou STONER, PA Attending Provider Active Team Status: Inactive Member Role Status Dates Dr. Shane Contreras MD Primary Care Provi jayshree, Attending Provider, Referring Provider Active Team Status: Inactive Member Role Status Dates Dr. Shane Contreras MD Primary Care Provider Active KATERINA Alfred Attending Provider Active Team Status: Inactive Member [...] MD Primary Care Provider, Attending Provider Active Claim Adjuster Relationship Specialty Start Date End Date Shane Contreras MD [address] [facility] [address] [place] [address] PCP - General Family Medicine 02/28/23 Team [...] Status: Inactive Member Role/Relationship Status Dates Dr. Sahne Contreras MD Primary Care Provider Active Start: [...] Provider Active St art: January 29, 2025 Team Status: Inactive Member Role/Relationship Status Dates Dr. Shane Contreras MD Primary Care Provider Active Start: February 24, 2025 End: February 24, 2025 Dr. Shane Contreras MD Attending Provider Active Start: February 24, 2025 End: February 24, 2025 Dr. Shane Contreras MD Referring Provider Active Start: February 24, 2025 End: February 24, 2025 Team Status: Active Member Role/Relationship Status Dates Dr. Shane Contreras MD Primary Care Provider Active Start: February 26, 2025 Dr. Shane Contreras MD Attending Provider Active Start: February 26, 2025 Team Status: Inactive Member Role/Relationship Status Dates Dr. Shane Contreras MD Primary Care Provider Active Start: February 26, 2025 End: February 26, 2025 Dr. Shane Contreras MD Attending Provider Active Start: February 26, 2025 End: February 26, 2025 Team Status: Active Member Role/Relationship Status Dates Dr. Shane Contreras MD Primary Care Provider Active Start: March 04, 2025 Dr. All Stephens MD Attending Provider Active Start: March 04, 2025 Dr. All Stephens MD Referring Provider Active Start: March 04, 2025 Team Status: Inactive Member Role/Relationship Status Dates Dr. Shane Contreras MD Primary Care Provider Active Start: March 04, 2025 End: March 04, 2025 Dr. All Stephens MD Attending Provider Active Start: March 04, 2025 End: March 04, 2025 Dr. All Stephens MD Referring Provider Active Start: March 04, 2025 End: March 04, 2025 FOR RECORDS PERTAINING TO PATIENTS WHO [...] BE BASED ON THE PRIMARY CLINICAL RECORDS. [facility] [employer] [facility]. provides no warranty or guarantee of the accuracy or completeness of information in this document.
[2025-04-06 01:40] VITALS: BP 154/94; PULSE 85; RESP 16
--- NOTE | 2025-04-06 02:38 | EDS_ITS ---
HPI History of Present Illness Chief Complaint: Abd Pain Informant: patient Narrative Narrative: Patient is a 69-year-old male with past medical history of hypertension hypothyroidism and diverticulosis/diverticulitis. He states roughly 3 weeks ago he was noticing pain in the left side of his abdomen with sensation of tenesmus. He states that this was similar nature to his previous bouts of diverticulitis. He was placed on Cipro and Flagyl which he took for 10 days. He states he felt better for a few days after taking the medication. However the symptoms of left-sided abdominal discomfort and nausea then returned. He states he has not had a fever and pain is mild and not severe. However with the quick return of symptoms after antibiotic therapy he was concern for worsening infection and therefore comes in for evaluation [facility] Medical History Indwelling urethral catheter present Diabetes Wears glasses Wears contact lenses Cancer Anxiety Back pain Dietary restriction CPAP (continuous positive airway pressure) dependence Non-smoker History of echocardiogram History of stress test Cardiology follow-up encounter PFO (patent foramen ovale) Diverticulitis PFO with atrial septal aneurysm History of skin cancer Hypothyroidism Essential hypertension Asthma Exposure to COVID-19 virus Home Medications ?Medication ?Instructions ?Recorded ?Last Taken ?Type montelukast 10 mg tablet 10 mg PO QHS 03/21/21 History cholecalciferol (vitamin D3) 50 2,000 unit PO DAILY 01/28/25 History mcg (2,000 unit) tablet (Vitamin D3) metformin 500 mg tablet 500 mg PO QHS 09/15/2101/28 History tamsulosin 0.4 mg capsule 0.4 mg PO QHS 06/13/2201/28 History multivitamin 1 tab PO DAILY SUPPLEMENT 01/28/25 History zinc acetate 25 mg (zinc) capsule 30 mg PO DAILY SUPPL EMENT 12/09/22 01/28/25 History guaifenesin 600 mg tablet, 600 mg PO BID 05/09/2301/12 History extended release 12 hr fluticasone 232mcg-salmeterol 1 inh inhalation BID ast hma 05/10/23 01/28/25 History 14mcg/actuation breath act,powder sensor levothyroxine 75 mcg capsule 75 mcg PO DAILY 12/07/23 07/17/25 History losartan 100 mg tablet 100 mg PO QHS 06/20/2301/28 History aspirin 81 mg capsule 81 mg PO DAILY 09/11/2301/12 History atorvastatin 10 mg tablet (Lipitor) 10 mg PO QDAY 11/1201/28/25 History albuterol sulfate 90 mcg/actuation 2 puff inhalation Q 4H PRN PRN 01/27/25 01/28/25 History aerosol inhaler wheezing metronidazole 500 mg tablet 500 mg PO 4X/DAY 14 days # 56 tabs 04/06/25 Unknown Rx sulfamethoxazole 800 1 tab PO BID 14 days #28 tab s 04/06/25 Unknown Rx mg-trimethoprim 160 mg tablet (Bactrim DS) tramadol 50 mg tablet 50 mg PO TID PRN pain 7 days #21 04/06/25 Unknown Rx tabs Allergy/AdvReac Type Severity Reaction Status Date / Time amoxicillin trihydrate (From Allergy Rash Verified 04/05/25 23:22 Augmentin) potassium clavulanate (From Allergy Rash Verified 04/05/25 23:22 Augmentin) Family History Mother Breast cancer Father Heart disease Cancer Kidney Surgical History S/P left inguinal hernia repair History of colonoscopy (~06/2023) History of esophagogastroduodenoscopy (EGD) History of hemorrhoidectomy History of orchiectomy, unilateral History of drainage of abscess H/O hernia repair Social History Smoking Status: Never smoker alcohol intake: never substance use type: does not use caffeine: No (Over the last 3 weeks) ROS ROS ED Constitutional Constitutional ED: Denies chills or fever(s) ENT ENT ED: Denies sore throat Cardiovascular Cardiovascular: Denies chest pain Respiratory/Chest Respiratory/Chest: Denies cough or dyspnea Gastrointestinal Gastrointestinal: Reports abdominal pain and nausea; Denies diarrhea or vomiting Genitourinary Genitourinary ED: Denies dysuria or hematuria Musculoskeletal Musculoskeletal: Denies back pain or myalgias Integumentary Denies rash Neurologic Neurologic: Denies headache(s) Hematologic/Lymphatic Hematologic/Lymphatic: Denies easy bleeding or easy bruising EXAM Physical Exam Const Vital Signs: 04/05/25 23:19 04/06/25 01:40 04/06/25 02:42 Temperature 98.3 F 98.0 F Temperature Source Oral Pulse Rate 113 H 85 85 Respiratory Rate 16 16 16 Blood Pressure 130/105 H 154/94 H 155/96 H Blood Pressure Mean 113 114 115 Pulse Ox 100 98 Oxygen Delivery Method Room Air Positive well nourished and well developed General Appearance ED: well developed; Negative for pallor HEENT HEENT Narrative: Normocephalic atraumatic Eyes PERRL and EOMs intact bilaterally General Eye ED: Negative for scleral icterus Neck supple Neck Narrative: No nuchal rigidity or meningeal signs Resp normal respiratory effort and clear to auscultation bilaterally Cardio regular rate and regular rhythm GI non-distended and no masses GI Narrative: Abdomen is soft and nondistended with slightly hyperactive bowel sounds. There is pain with palpation along the midepigastric and left lower to mid abdomen. However there is no voluntary guarding or rigidity. No pulsatile mass or fluid wave. No peritoneal signs. No increased tympany Auscultation: hyperactive bowel sounds Palpation: soft Back/Spine no CVA tenderness Extremity normal to inspection Neuro oriented x3, CN's II-XII intact bilaterally and no sensory deficits noted Sensorium / Orientation: alert Motor Exam: strength 5/5 throughout Psych mental status grossly normal Skin no rashes or lesions noted General Skin Exam: Negative for jaundice or pallor MDM MDM MDM Narrative Medical decision making narrative: Patient arrived to the ER hypertensive but has a past medical history of this. With his report of left-sided abdominal pain over the past 2 weeks despite proper antibiotic therapy there is concern for complicated diverticulitis such as perforation or abscess. With some pain in the midepigastric region there was also concern he could have acute pancreatitis. There is potential atypical presentation for kidney stone or UTI/pyelonephritis. Therefore basic labs with urine sample as well as a CT scan with IV contrast were obtained. There is no leukocytosis or left shift or lactic acidosis. Urine sample shows no blood going against kidney stone or signs of infection which would go against UTI/pyelonephritis. Lipase is normal as well going against acute pancreatitis. CT scan showed changes consistent with mild colitis/diverticulitis but no abscess or perforation or signs of obstruction. The patient technically has failed outpatient therapy as he still has signs of infection following proper treatment. However as the CT indicates this is mild in nature and vitals are stable and he does not have leukocytosis left shift or lactic acidosis I do not feel there is need for inpatient treatment. We will simply change the antibiotic regimen to cover for potential drug-resistant pathogen as the cause of his persistent symptoms. This plan of care was discussed with the patient who is agreeable to it and therefore he will prescribe Bactrim and Flagyl and can follow-up with his family doctor in a few days for further/repeat evaluation History & Record Review Discussion w/independent historian: Patient Lab Data Attestation: I reviewed the patient's lab results. Labs: Laboratory Results - last 24 hr 04/05/25 04/06/25 23:56 00:52 WBC 6.2 RBC 4.91 Hgb 14.6 Hct 43.3 MCV 88.2 MCH 29.7 MCHC 33.7 RDW Std Deviation 46.5 H RDW Coeff of Kam 14.5 Plt Count 202 MPV 9.4 Immature Gran % (Auto) 1.600 H Neut % (Auto) 59.7 Lymph % (Auto) 24.0 [place] % (Auto) 13.1 H Eos % (Auto) 1.3 Baso % (Auto) 0.3 Absolute Neuts (auto) 3.7 Absolute Lymphs (auto) 1.48 Nucleated RBC % 0 Sodium 140 Potassium 3.7 Chloride 102 Carbon Dioxide 24.3 Anion Gap 13 BUN 9 Creatinine 0.88 Estim Creat Clear Calc 119.80 Est GFR (MDRD) Non-Af 94 BUN/Creatinine Ratio 10.4 Glucose 109 H Lactic Acid < 1.0 Calcium 9.5 Total Bilirubin 1.03 Direct Bilirubin 0.41 H AST 26 ALT 37 Alkaline Phosphatase 44 Total Protein 6.9 Albumin 4.4 Globulin 2.5 Lipase 17 Urine Color Yellow Urine Clarity Clear Urine pH 7.0 Ur Specific [place] 1.010 Urine Protein Negative Urine Glucose (UA) Normal Urine Ketones Negative Urine Occult Blood Negative Urine Nitrite Negative Urine Bilirubin Negative Urine Urobilinogen Normal Ur Leukocyte Esterase Negative Urine RBC 0 SEEN Urine WBC 0 SEEN Ur Squamous Epith Cells 0 SEEN Urine Bacteria 0 SEEN Urine Mucus 0 SEEN Radiography Diagnostic Testing: Clinical Impression(s) from Imaging Studies Abdomen/Pelvis CT 04/05/25 23:34 IMPRESSION: Diffuse colonic diverticulosis. Minimal thickening of the proximal sigmoid/distal descending colon, probably minimal colitis/diverticulitis without perforation or abscess formation. Mild hepatic steatosis. Diffuse thickening of the stomach suggestive of gastritis. 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 Unchanged right renal simple cyst measuring 1.5 cm. Surgical changes of the left inguinal canal without acute changes. Mildly prominent left external iliac lymph nodes are noted with the largest measuring 1.2 cm, probably benign and reactive. Distended bladder. Mild prostatomegaly. Diffuse thickening of the wall of the bladder. Chronic bladder outlet obstruction versus mild cystitis. Surgical changes of the lower aspect of the anterior abdominal wall. [facility] Triage Chief Complaint: Abd Pain ED Provider: Klever Hamilton Dx/Rx/DC Orders Clinical Impression: Diverticulitis, Hypothyroidism, Hypertension Instructions: Diverticulitis Dc Prescriptions: New sulfamethoxazole-trimethoprim [Bactrim DS] 800-160 mg tablet 1 tab PO BID 14 Days Qty: 28 0RF metronidazole 500 mg tablet 500 mg PO 4X/DAY 14 Days Qty: 56 0RF tramadol 50 mg tablet 50 mg PO TID PRN (Reason: pain) 7 Days Qty: 21 0RF No Action metformin 500 mg tablet 500 mg PO QHS tamsulosin 0.4 mg capsule 0.4 mg PO QHS atorvastatin [Lipitor] 10 mg tablet 10 mg PO QDAY montelukast 10 mg tablet 10 mg PO QHS multivitamin Tablet 1 tab PO DAILY zinc acetate 25 mg (zinc) Capsule 30 mg PO DAILY guaifenesin 600 mg tablet extended release 12hr 600 mg PO BID fluticasone propion-salmeterol 232-14 mcg/actuation aero powdr breath act w/sensor 1 inh inhalation BID levothyroxine 75 mcg capsule 75 mcg PO DAILY losartan 100 mg tablet 100 mg PO QHS aspirin 81 mg capsule 81 mg PO DAILY albuterol sulfate 90 mcg/actuation HFA aerosol inhaler 2 puff INHALATION Q4H PRN PRN (Reason: wheezing) cholecalciferol (vitamin D3) [Vitamin D3] 50 mcg (2,000 unit) tablet 2,000 unit PO DAILY Primary Care Provider: Shane Contreras Referrals: Shane Contreras MD [Primary Care Provider, Family Practice] Activity Restrictions/Additional Instructions: Please follow-up with your family doctor for repeat evaluation and return to the ER should you have any further concerns or worsening symptoms despite antibiotic treatment Print Language: Thai Disposition Disposition: Home, Self Care Discharge Date/Time: 04/06/25 02:46
[2025-04-06 02:42] VITALS: BP 155/96; PULSE 85; RESP 16; TEMP 36.7; O2SAT 98
== END 2025-04-06 02:46 | disposition home or self-care (01) ==
PROVIDERS: Emergency Provider Emergency Medicine; PCP Family Medicine; Visit Provider Emergency Medicine
DX: K57.92 Diverticulitis of intestine, part unspecified, without perforation or abscess without bleeding (principal); E11.9 Type 2 diabetes mellitus without complications; I10 Essential (primary) hypertension; E03.9 Hypothyroidism, unspecified; Z79.82 Long term (current) use of aspirin; Z79.890 Hormone replacement therapy; Z79.899 Other long term (current) drug therapy
CPT/HCPCS: 74177; 80048; 80076; 81001; 83605; 83690; 85025; 96360; 99283; Q9967; A4216

== ENCOUNTER → 2025-04-19 | Outpatient (CLI) | payer MEDICARE, OTHER, SELFPAY ==
[2025-04-19 14:37] LABS: CRP < 3.00 mg/L (0.0-3.0)
[2025-05-06 13:08] LABS: ACCA 12 units (0-90); ALCA 17 units (0-60)
== END | disposition home or self-care (01) ==
LOC: LAB 13:14
PROVIDERS: PCP Family Medicine; Visit Provider Internal Medicine Gastroenterology
DX: K57.31 Diverticulosis of large intestine without perforation or abscess with bleeding (principal); K57.92 Diverticulitis of intestine, part unspecified, without perforation or abscess without bleeding
CPT/HCPCS: 36415; 83516; 84403; 85652; 86036; 86140; 86671

== ENCOUNTER → 2025-06-02 | Outpatient (CLI) | payer MEDICARE, OTHER, SELFPAY | END | disposition home or self-care (01) | PROVIDERS: PCP Family Medicine; Visit Provider Family Medicine | DX: R79.89 Other specified abnormal findings of blood chemistry (principal) | CPT/HCPCS: 84403 ==

== ENCOUNTER 2025-06-04 09:17 | Outpatient (CLI) | payer MEDICARE, OTHER, SELFPAY ==
[2025-06-04 12:13] LABS: Hematocrit 46.8 % (40-54); Hemoglobin 15.5 g/dL (13.0-16.5); Immature Granulocytes Count 0.050 X10^3/uL (0.0-0.0); Mean Corp Hgb Conc 33.1 g/dL (32-36); Mean Corpuscular Volume 89.3 fL (80-94); Mean Platelet Vol. 10.2 fl (6.2-12.0); NRBC Flagged by Analyzer 0 % (0-5); Platelet Count 209 K/mm3 (150-450); RBC Distribution Width CV 14.6 % (11.6-14.6); RBC Distribution Width SD 47.8 fl (35.1-43.9); Red Blood Count 5.24 M/mm3 (4.6-6.2); White Blood Count 5.3 K/mm3 (4.4-11.0)
[2025-06-04 12:46] LABS: AST(SGOT) 26 U/L (<=37); Alanine Aminotransfer ALT/SGPT 22 U/L (<=46); Albumin, Serum 4.2 g/dL (3.4-4.8); Alkaline Phosphatase 50 U/L (40-129); Anion Gap 11 (5-15); BUN 8 mg/dL (4-19); BUN/Creat Ratio 8.9 RATIO (10-20); Calcium,Total 9.4 mg/dL (7.6-11.0); Carbon Dioxide 25.3 mmol/L (21.0-32.0); Chloride 103 mmol/L (98-108); Cholesterol 111 mg/dL (<=200); Globulin 2.7 g/dL (2.2-4.2); Glucose 116 mg/dL (70-99); Low Density Lipoprotein Calc. 48 mg/dL; PSA,Total- Diagnostic 1.05 ng/mL (0.00-4.00); Potassium 3.8 mmol/L (3.3-5.1); Triglycerides 73 mg/dL; Very Low Density Lipoprotein 15 mg/dL (5-40); cholesterol:hdl ratio screen 2.32
== END 2025-06-04 23:59 | disposition home or self-care (01) ==
LOC: MFPLAB 09:18
PROVIDERS: PCP Family Medicine; Visit Provider Family Medicine
DX: R79.89 Other specified abnormal findings of blood chemistry (principal); E11.9 Type 2 diabetes mellitus without complications; N40.0 Benign prostatic hyperplasia without lower urinary tract symptoms
CPT/HCPCS: 36415; 80053; 80061; 84153; 84403; 85025